=== PATIENT | female | born 1945 | race Caucasian/White ===

== ENCOUNTER → 2017-10-02 13:21 | Outpatient (CLI) | payer OTHER, SELFPAY ==
[2017-10-02 13:47] LABS: Add Manual Diff / Slide Review NO; Eosinophils Percent Auto 2.2 % (2-4); Hematocrit 38.4 % (36-46); Lymphocytes Percent Auto 25.5 % (25-40); Mean Corpuscular HGB Conc 33.9 % (30-36); Mean Corpuscular Hemoglobin 31.4 PG (26-34); Mean Corpuscular Volume 92.4 fL (80-100); Monocytes Percent Auto 9.8 % (3-14); Neutrophils Absolute Auto 2800 /uL (3000-5900); Neutrophils Percent Auto 61.5 % (50-75); Platelet Count 143 X10^3/uL (150-400); Red Blood Cell Count 4.15 X10^6/uL (4.0-5.2); White Blood Cell Count 4.5 X10^3/uL (4.5-11.0)
[2017-10-02 14:51] LABS: Alanine Aminotransferase 32 IU/L (9-52); Albumin 4.1 g/dL (3.5-5.0); Albumin Globulin Ratio 1.6 (1.0-2.8); Alkaline Phosphatase 87 U/L (38-126); Aspartate Aminotransferase 32 IU/L (14-36); BUN Creatinine Ratio 28.6 (6-22); Bilirubin Total 0.4 mg/dL (0.2-1.3); Blood Urea Nitrogen 20 mg/dL (7-17); Calcium 9.2 mg/dL (8.4-10.2); Carbon Dioxide 29 mmol/L (22-32); Chloride 103 mmol/L (98-107); Estimated Glomerular Filt Rate > 60.0 mL/min (>60); Globulin 2.6 g/dL (1.7-4.1); Glucose 105 mg/dL (80-110); HEMOLYSIS < 15 (0-50); Lactate Dehydrogenase 547 U/L (313-618); Sodium 140 mmol/L (137-145); Total Protein 6.7 g/dL (6.3-8.2)
== END ==
PROVIDERS: Family Provider Family Medicine; PCP Family Medicine; Visit Provider Nurse Practitioner Gerontology
DX: C81.90 Hodgkin lymphoma, unspecified, unspecified site (principal)
CPT/HCPCS: 36415; 80053; 83615; 85025

== ENCOUNTER → 2017-12-27 09:36 | Outpatient (CLI) | payer OTHER, SELFPAY ==
[2017-12-27 10:04] LABS: Add Manual Diff / Slide Review NO; Basophils Percent Auto 1.2 % (0-2); Eosinophils Percent Auto 2.7 % (2-4); Hematocrit 41.8 % (36-46); Hemoglobin 14.1 g/dL (12.0-16.0); Lymphocytes Percent Auto 21.9 % (25-40); Mean Corpuscular HGB Conc 33.6 % (30-36); Mean Corpuscular Hemoglobin 30.6 PG (26-34); Mean Corpuscular Volume 91.1 fL (80-100); Monocytes Percent Auto 9.8 % (3-14); Neutrophils Absolute Auto 2800 /uL (3000-5900); Neutrophils Percent Auto 64.4 % (50-75); Platelet Count 160 X10^3/uL (150-400); Red Blood Cell Count 4.59 X10^6/uL (4.0-5.2); Red Cell Distribution Width 13.5 % (11.6-14.8); White Blood Cell Count 4.4 X10^3/uL (4.5-11.0)
[2017-12-27 10:22] LABS: Alanine Aminotransferase 31 IU/L (9-52); Albumin 4.3 g/dL (3.5-5.0); Albumin Globulin Ratio 1.7 (1.0-2.8); Alkaline Phosphatase 97 U/L (38-126); Aspartate Aminotransferase 34 IU/L (14-36); BUN Creatinine Ratio 24.3 (6-22); Bilirubin Total 0.5 mg/dL (0.2-1.3); Blood Urea Nitrogen 17 mg/dL (7-17); Calcium 9.3 mg/dL (8.4-10.2); Carbon Dioxide 32 mmol/L (22-32); Chloride 104 mmol/L (98-107); Estimated Glomerular Filt Rate > 60.0 mL/min (>60); Globulin 2.6 g/dL (1.7-4.1); Glucose 84 mg/dL (80-110); HEMOLYSIS < 15 (0-50); Lactate Dehydrogenase 519 U/L (313-618); Sodium 145 mmol/L (137-145); Total Protein 6.9 g/dL (6.3-8.2)
== END ==
PROVIDERS: Family Provider Family Medicine; PCP Family Medicine; Visit Provider Nurse Practitioner Gerontology
DX: C81.90 Hodgkin lymphoma, unspecified, unspecified site (principal)
CPT/HCPCS: 36415; 80053; 83615; 85025

== ENCOUNTER 2017-12-30 12:30 | Oncology outpatient (ONC) | payer OTHER, SELFPAY ==
--- NOTE | 2017-10-04 09:44 | ONC.APRN.PN ---
Assessment and Plan (1) Hodgkins lymphoma Current visit: No Status: Acute 10/04/17 09:46 The patient is a 71 year old Female who is being seen in the clinic 10/04/2017. She carries a diagnosis of stage IV Hodgkin's lymphoma presenting with diffuse cutaneous involvement in April 2016. She has subsequently completed 6 cycles of ABVD chemotherapy obtaining a complete response (Douville score 1) after cycle 2 of therapy. Patient presents today for her routine surveillance visit today. She had recent CT 07/03/2017 which was without evidence of disease. Per NCCN guidelines 1st 2 years after diagnosis and treatment recommendation is for screening CTs approximately every 6 months. Patient would be due in 3 months. Patient would like to defer at this time, she does not want to expose herself to the radiation. She has no red flags on exam. Overall feeling very well. CBC, CMP unremarkable. LDH is within normal limits. I will have her return to clinic in 3 months time for provider visit CBC CMP LDH. At that time we will discuss imaging once again. Patient agrees with this plan of care. She is leaving later this month for a trip to [place]. 10/04/17 10:05 - Time Spent with Patient 35 mins PN -Subjective Interval history: The patient is a 71 year old Female who is being seen in the clinic 10/04/2017. She carries a diagnosis of stage IV Hodgkin's lymphoma presenting with diffuse cutaneous involvement in April 2016. She has subsequently completed 6 cycles of ABVD chemotherapy obtaining a complete response (Douville score 1) after cycle 2 of therapy. Patient presents today for her routine surveillance visit today. She had recent CT 07/03/2017 , without evidence of disease. No new complaints whatsoever on exam today. Overall feeling quite well. No fatigue. No night sweats. No weight loss, early satiety, abdominal bloating. No new musculoskeletal pain. No lumps or bumps. No skin rashes or lesions. Remains under the care of cardiology Dr. Jefferson for recurrent SVT well controlled on dilitazem. No recent illnesses. She will be traveling to [place] later this month. Past Medical History The patient's past medical history is significant for: 1) Hodgkins Lymphoma: Stage IV A with diffuse cutaneous involvement. Diagnosis: -05/15/2016. Cutaneous punch biopsy. Pathology reporting, Dense lymphoid infiltrate present in a nodular pattern involving predominantly the deep dermis and subcutaneous tissue with focal involvement of the mid dermis. The infiltrate is composed predominantly of small polymorphous lymphocytes with sub-population of large cells containing prominent nucleoli. IHC demonstrating the small cells are predominantly T cells while the larger cells represent CD30 positive and CD15 positive B cells. Both expressed nuclear B-cell markers (PAX-5 and POB-1) as well as CD20. Despite the CD20 positive which is usually negative and classic Hodgkin's lymphoma the presence of classical Golgi and membrane staining by CD30 is most consistent with classical Jerad-Katherin cells. Of note the current skin lesion does not represent follicular lymphoma. Ki-67 was reported as high. Additional IHC panel núñez negative for cyclin D1 and CD-10. Positive for CD5 in the small cell population. Clinical staging workup, Baseline: -05/30/2016: CT of the neck chest abdomen pelvis with contras. This confirms multiple, diffuse, superficial soft tissue nodularities: Anterior left ear 16 mm density, right ear 7 mm density, several cutaneous nodules reported along theupper back and posterior right shoulder. At the sternoclavicular notch on the right is a 12 mm nodule. Along the right lateral aspect of the upper breast is a density. Left scapular 9 mm density, Finally along the anterior aspect of the right side several nodules seen. Left axillary lymph node measuring less than 1 cm with slightly thickened cortex is reported. The conglomerate adenopathy seen at the retrocrural and para-aortic level is overall smaller than CT scan dated 01/17/2015. However focal area of increased is noted. -06/13/2016. PET/CT scan. Multiple cutaneous hypermetabolic lesions (Douville score 5): neck, right mandibular angle, chest wall, shoulders, arms, posterior low back, and buttocks. Bulky left para-aortic den mass (follicular lymphoma) measuring 28 x 36 x 75 mm with an SUV of 11.7. Prognosis: -IPS score equal to 2. 5 year [place] from progression at 80%. 5 year overall survival at 91%: Baseline score based on laboratory data dated 05/16/2026: Albumin 4.2, hemoglobin 13.7, female, age 66 at presentation, stage IV presentation, white blood cell count 4.1, lymphocyte percentage 22%. Treatment: -Standard ABVD chemotherapy x 6 cycles. Repeat PET/CT scan after 2 cycles. Discontinue bleomycin after 2 cycles. Phone consultation with Dr. Patrick Vick on 06/01/2016 who agrees with the above regimen. -06/12/2016-12/04/2016. ABVD chemotherapy ?6 cycles. -Treatment modifications: Vincristine and dacarbazine dose reduced by 25% on cycle 2 day 15 secondary to persistent grade 4 neutropenia. Cardiac monitoring: -06/04/2016. MUGA scan: EF 75.2%. (Baseline) -08/31/2016. MUGA scan. EF 67.4%. (3 cycles AVD) 10/19/2016. MUGA scan. EF 69.1%. (4 cycles of AVD) 11/14/2016. MUGA scan. EF 73.5% (5 cycles of AVD). 12/19/2016. MUGA scan. EF 72.5%. (6 cycles of AVD) Pulmonary monitoring: -06/14/2016. PFT (Baseline, compared to PFT 2008) reporting an FEV1 measured at 1.44 L (63% predictive). FEV1/FVC ratio 69 (90% predictive). No appreciable change in patient's measurements after the dilator use. Lung volumes showing SVC of 1.94 L (67% predictive). DLCO2 64% predicted. No significant change from 2009 PFT. -07/04/2016. PFT (reflection of 1 cycle of ABVD chemotherapy): FEV1 1.52 L (66% predictive), FEV1/FVC ratio 67% (88% predictive), DLCO2 cor at 74% predicted. Clinical staging workup, during treatment: -08/10/2016. PET/CT scan (a reflection of 2 cycles of ABVD chemotherapy). Multiple cutaneous hypermetabolic lesions resolved (Douville score 1). Bulky left aortic mass decreased in size measuring 20 x 26 x 40 mm SUV equal to 2.5 (Douville scale 4). Surveillence: NCCN guidelines: -Clinical follow-up every 3-6 months for the first 2 years then every 6-12 months until year 3 then annual. Annual influenza vaccine. Labs CBC ESR CMP. TSH. CT of the chest abdomen pelvis and neck at months 6, 12 and 24 at the completion of therapy. No indication for PET/CT scan she had a complete response after 2 cycles. -02/25/2017. CTA of the chest. Persistant but small mediastinal lymph nodes compared to July 2016 PET scan. No paranchymal lung disease. 2) Low-grade follicular lymphoma originally diagnosed in 12/27/2008 from biopsy of a left retroperitoneal mass. Pathology consistent with a low-grade follicular lymphoma (grade 1-2 out of 3). Positive for BCL-2 gene translocation by t(14;18) by FISH. Negative for BCL-6 translocation by FISH. FLIPI score of 2. Asymptomatic at time of diagnosis. Second opinion with Dr. Patrick Vick on 02/06/2013 confirming diagnosis low-grade and recommendation for observation only. 3) SVT not otherwise specified intermittent. Under the care of Dr. Jefferson cardiology. No further diagnostic testing was recommended. 4) Obstructive lung disease (moderate) and Restrictive lung disease (moderate). Identified on PFT dated 06/14/16 reporting FEV1 63%. FEV1/FEVC ration of 90%, DLCO2=64%. Baseline CT Chest dated 05/30/2016 without evidence of radiologic parenchymal lung disease. No significant change in measurements compared to 2008 Home Medications and Allergies Home Medications Medication Instructions Recorded Confirmed Type B.ANI/L.ACI/L.MIS/L.PLAN/L.SILAS 1 cap PO Q DAY #0 07/04/12 History (Probiotic Formula Capsule) CA PANTOTHENATE/FOLIC ACID/VIT 1 tab PO QDAY #0 07/04/12 History (MULTIVITAMIN) Coenzyme Q10 (#COQ10) 250 mg PO #0 07/04/12 History vitamin B complex [B 1 tab PO QDAY #0 06/20/16 History Complex-Vitamin B12] [HAIR/SKIN NAILS] Q DAY #0 10/23/16 History diltiazem HCl [Cartia XT] 180 mg PO QDAY #0 03/28/17 History magnesium oxide 250 mg PO #0 05/30/17 History Allergies Allergy/AdvReac Type Severity Reaction Status Date / Time NSAIDS (Non-Steroidal Allergy Intermediate HIVES Unverified 07/03/17 13:03 Anti-Inflamma [NSAIDS (NON-STEROIDAL ANTI-INFLAMMA] amoxicillin [AMOXICILLIN] Allergy Mild rash Unverified 07/03/17 13:03 Exam Narrative: well appearing - Constitutional positive thin - Routine HEENT Exam Head: Present: normocephalic, atraumatic Eye: Present: conjunctivae pink. Absent: conjunctival icterus, scleral injection ENT: Present: mucous membranes moist, oropharynx clear - Routine Neck Exam Present: supple. Absent: lymphadenopathy - Routine Chest/Breast/Axilla Exam Chest wall exam standard: Absent: tenderness, mass Axillae: Absent: lymphadenopathy, mass, tenderness - Routine Respiratory Exam Present: Clear to auscultation bilaterally - Routine Cardiovascular Exam Present: RRR, S1, S2. Absent: tachycardia, JVD - Routine Abdominal Exam Present: soft, normoactive bowel sounds. Absent: tenderness, distended, organomegaly - Routine Extremities Exam Absent: edema, calf tenderness - Routine Skin Exam Present: intact, normal turgor. Absent: petechiae - Routine Neurological Exam Present: alert, oriented X3 - Routine Psychiatric Exam Present: normal affect
[2017-10-04 09:46] VITALS: BP 115/71; PULSE 67; RESP 18; O2SAT 99
--- NOTE | 2017-10-04 09:47 | P.PNONC_ITS ---
Assessment and Plan (1) Hodgkins lymphoma Current visit: No Status: Acute 10/04/17 09:46 The patient is a 71 year old Female who is being seen in the clinic 10/04/2017. She carries a diagnosis of stage IV Hodgkin's lymphoma presenting with diffuse cutaneous involvement in April 2016. She has subsequently completed 6 cycles of ABVD chemotherapy obtaining a complete response (Douville score 1) after cycle 2 of therapy. Patient presents today for her routine surveillance visit today. She had recent CT 07/03/2017 which was without evidence of disease. Per NCCN guidelines 1st 2 years after diagnosis and treatment recommendation is for screening CTs approximately every 6 months. Patient would be due in 3 months. Patient would like to defer at this time, she does not want to expose herself to the radiation. She has no red flags on exam. Overall feeling very well. CBC, CMP unremarkable. LDH is within normal limits. I will have her return to clinic in 3 months time for provider visit CBC CMP LDH. At that time we will discuss imaging once again. Patient agrees with this plan of care. She is leaving later this month for a trip to [place]. 10/04/17 10:05 - Time Spent with Patient 35 mins PN -Subjective Interval history: The patient is a 71 year old Female who is being seen in the clinic 10/04/2017. She carries a diagnosis of stage IV Hodgkin's lymphoma presenting with diffuse cutaneous involvement in April 2016. She has subsequently completed 6 cycles of ABVD chemotherapy obtaining a complete response (Douville score 1) after cycle 2 of therapy. Patient presents today for her routine surveillance visit today. She had recent CT 07/03/2017 , without evidence of disease. No new complaints whatsoever on exam today. Overall feeling quite well. No fatigue. No night sweats. No weight loss, early satiety, abdominal bloating. No new musculoskeletal pain. No lumps or bumps. No skin rashes or lesions. Remains under the care of cardiology Dr. Jefferson for recurrent SVT well controlled on dilitazem. No recent illnesses. She will be traveling to [place] later this month. Past Medical History The patient's past medical history is significant for: 1) Hodgkins Lymphoma: Stage IV A with diffuse cutaneous involvement. Diagnosis: -05/15/2016. Cutaneous punch biopsy. Pathology reporting, Dense lymphoid infiltrate present in a nodular pattern involving predominantly the deep dermis and subcutaneous tissue with focal involvement of the mid dermis. The infiltrate is composed predominantly of small polymorphous lymphocytes with sub- population of large cells containing prominent nucleoli. IHC demonstrating the small cells are predominantly T cells while the larger cells represent CD30 positive and CD15 positive B cells. Both expressed nuclear B-cell markers (PAX- 5 and POB-1) as well as CD20. Despite the CD20 positive which is usually negative and classic Hodgkin's lymphoma the presence of classical Golgi and membrane staining by CD30 is most consistent with classical Jerad-Katherin cells. Of note the current skin lesion does not represent follicular lymphoma. Ki-67 was reported as high. Additional IHC panel núñez negative for cyclin D1 and CD-10. Positive for CD5 in the small cell population. Clinical staging workup, Baseline: -05/30/2016: CT of the neck chest abdomen pelvis with contras. This confirms multiple, diffuse, superficial soft tissue nodularities: Anterior left ear 16 mm density, right ear 7 mm density, several cutaneous nodules reported along theupper back and posterior right shoulder. At the sternoclavicular notch on the right is a 12 mm nodule. Along the right lateral aspect of the upper breast is a density. Left scapular 9 mm density, Finally along the anterior aspect of the right side several nodules seen. Left axillary lymph node measuring less than 1 cm with slightly thickened cortex is reported. The conglomerate adenopathy seen at the retrocrural and para-aortic level is overall smaller than CT scan dated 01/17/2015. However focal area of increased is noted. -06/13/2016. PET/CT scan. Multiple cutaneous hypermetabolic lesions (Douville score 5): neck, right mandibular angle, chest wall, shoulders, arms, posterior low back, and buttocks. Bulky left para-aortic den mass (follicular lymphoma ) measuring 28 x 36 x 75 mm with an SUV of 11.7. Prognosis: -IPS score equal to 2. 5 year [place] from progression at 80%. 5 year overall survival at 91%: Baseline score based on laboratory data dated 05/16/2026: Albumin 4.2, hemoglobin 13.7, female, age 66 at presentation, stage IV presentation, white blood cell count 4.1, lymphocyte percentage 22%. Treatment: -Standard ABVD chemotherapy x 6 cycles. Repeat PET/CT scan after 2 cycles. Discontinue bleomycin after 2 cycles. Phone consultation with Dr. Patrick Vick on 06/01/2016 who agrees with the above regimen. -06/12/2016-12/04/2016. ABVD chemotherapy ?6 cycles. -Treatment modifications: Vincristine and dacarbazine dose reduced by 25% on cycle 2 day 15 secondary to persistent grade 4 neutropenia. Cardiac monitoring: -06/04/2016. MUGA scan: EF 75.2%. (Baseline) -08/31/2016. MUGA scan. EF 67.4%. (3 cycles AVD) 10/19/2016. MUGA scan. EF 69.1%. (4 cycles of AVD) 11/14/2016. MUGA scan. EF 73.5% (5 cycles of AVD). 12/19/2016. MUGA scan. EF 72.5%. (6 cycles of AVD) Pulmonary monitoring: -06/14/2016. PFT (Baseline, compared to PFT 2008) reporting an FEV1 measured at 1.44 L (63% predictive). FEV1/FVC ratio 69 (90% predictive). No appreciable change in patient's measurements after the dilator use. Lung volumes showing SVC of 1.94 L (67% predictive). DLCO2 64% predicted. No significant change from 2009 PFT. -07/04/2016. PFT (reflection of 1 cycle of ABVD chemotherapy): FEV1 1.52 L (66 % predictive), FEV1/FVC ratio 67% (88% predictive), DLCO2 cor at 74% predicted. Clinical staging workup, during treatment: -08/10/2016. PET/CT scan (a reflection of 2 cycles of ABVD chemotherapy). Multiple cutaneous hypermetabolic lesions resolved (Douville score 1). Bulky left aortic mass decreased in size measuring 20 x 26 x 40 mm SUV equal to 2.5 ( Douville scale 4). Surveillence: NCCN guidelines: -Clinical follow-up every 3-6 months for the first 2 years then every 6-12 months until year 3 then annual. Annual influenza vaccine. Labs CBC ESR CMP. TSH. CT of the chest abdomen pelvis and neck at months 6, 12 and 24 at the completion of therapy. No indication for PET/CT scan she had a complete response after 2 cycles. -02/25/2017. CTA of the chest. Persistant but small mediastinal lymph nodes compared to July 2016 PET scan. No paranchymal lung disease. 2) Low-grade follicular lymphoma originally diagnosed in 12/27/2008 from biopsy of a left retroperitoneal mass. Pathology consistent with a low-grade follicular lymphoma (grade 1-2 out of 3). Positive for BCL-2 gene translocation by t(14;18 ) by FISH. Negative for BCL-6 translocation by FISH. FLIPI score of 2. Asymptomatic at time of diagnosis. Second opinion with Dr. Patrick Vick on 02/06/2013 confirming diagnosis low-grade and recommendation for observation only. 3) SVT not otherwise specified intermittent. Under the care of Dr. Jefferson cardiology. No further diagnostic testing was recommended. 4) Obstructive lung disease (moderate) and Restrictive lung disease (moderate). Identified on PFT dated 06/14/16 reporting FEV1 63%. FEV1/FEVC ration of 90%, DLCO2=64%. Baseline CT Chest dated 05/30/2016 without evidence of radiologic parenchymal lung disease. No significant change in measurements compared to 2008 Home Medications and Allergies Home Medications Medication Instructions Recorded Confirmed Type B.ANI/L.ACI/L.MIS/L.PLAN/L.SILAS 1 cap PO Q DAY #0 07/04/12 History (Probiotic Formula Capsule) CA PANTOTHENATE/FOLIC ACID/VIT 1 tab PO QDAY #0 07/04/12 History (MULTIVITAMIN) Coenzyme Q10 (#COQ10) 250 mg PO #0 07/04/12 History vitamin B complex [B 1 tab PO QDAY #0 06/20/16 History Complex-Vitamin B12] [HAIR/SKIN NAILS] Q DAY #0 10/23/16 History diltiazem HCl [Cartia XT] 180 mg PO QDAY #0 03/28/17 History magnesium oxide 250 mg PO #0 05/30/17 History Allergies Allergy/AdvReac Type Severity Reaction Status Date / Time NSAIDS (Non-Steroidal Allergy Intermediate HIVES Unverified 07/03/17 13:03 Anti-Inflamma [NSAIDS (NON-STEROIDAL ANTI-INFLAMMA] amoxicillin [AMOXICILLIN] Allergy Mild rash Unverified 07/03/17 13:03 Exam Narrative: well appearing - Constitutional positive thin - Routine HEENT Exam Head: Present: normocephalic, atraumatic Eye: Present: conjunctivae pink. Absent: conjunctival icterus, scleral injection ENT: Present: mucous membranes moist, oropharynx clear - Routine Neck Exam Present: supple. Absent: lymphadenopathy - Routine Chest/Breast/Axilla Exam Chest wall exam standard: Absent: tenderness, mass Axillae: Absent: lymphadenopathy, mass, tenderness - Routine Respiratory Exam Present: Clear to auscultation bilaterally - Routine Cardiovascular Exam Present: RRR, S1, S2. Absent: tachycardia, JVD - Routine Abdominal Exam Present: soft, normoactive bowel sounds. Absent: tenderness, distended, organomegaly - Routine Extremities Exam Absent: edema, calf tenderness - Routine Skin Exam Present: intact, normal turgor. Absent: petechiae - Routine Neurological Exam Present: alert, oriented X3 - Routine Psychiatric Exam Present: normal affect
[2017-12-30 12:46] VITALS: BP 124/58; PULSE 66; RESP 18; TEMP 36.6; O2SAT 98
--- NOTE | 2017-12-30 13:24 | P.PNONC_ITS ---
PN -Subjective Interval history: The patient is a 72 year old Female who is being seen in the clinic 12/30/2017. She carries a diagnosis of stage IV Hodgkin's lymphoma presenting with diffuse cutaneous involvement in April 2016. She has subsequently completed 6 cycles of ABVD chemotherapy obtaining a complete response (Douville score 1) after cycle 2 of therapy. Patient presents today for her routine surveillance visit today. She had recent CT 07/03/2017 , without evidence of disease. No new complaints whatsoever on exam today. Overall feeling quite well. No fatigue. No night sweats. No weight loss, early satiety, abdominal bloating. No new musculoskeletal pain. No lumps or bumps. No skin rashes or lesions. Remains under the care of cardiology Dr. Jefferson for recurrent SVT well controlled on dilitazem. No recent illnesses. NCCN guidelines were reviewed with the patient previous visit including recommendation for CT scan at 6, 12, [address] previous visit expressing concern about radiation exposure also indicating she is feeling well and saw no need for imaging. This was discussed again in detail today, NCCN guidelines once again reviewed. Past Medical History The patient's past medical history is significant for: 1) Hodgkins Lymphoma: Stage IV A with diffuse cutaneous involvement. Diagnosis: -05/15/2016. Cutaneous punch biopsy. Pathology reporting, Dense lymphoid infiltrate present in a nodular pattern involving predominantly the deep dermis and subcutaneous tissue with focal involvement of the mid dermis. The infiltrate is composed predominantly of small polymorphous lymphocytes with sub- population of large cells containing prominent nucleoli. IHC demonstrating the small cells are predominantly T cells while the larger cells represent CD30 positive and CD15 positive B cells. Both expressed nuclear B-cell markers (PAX- 5 and POB-1) as well as CD20. Despite the CD20 positive which is usually negative and classic Hodgkin's lymphoma the presence of classical Golgi and membrane staining by CD30 is most consistent with classical Jerad-Katherin cells. Of note the current skin lesion does not represent follicular lymphoma. Ki-67 was reported as high. Additional IHC panel núñez negative for cyclin D1 and CD-10. Positive for CD5 in the small cell population. Clinical staging workup, Baseline: -05/30/2016: CT of the neck chest abdomen pelvis with contras. This confirms multiple, diffuse, superficial soft tissue nodularities: Anterior left ear 16 mm density, right ear 7 mm density, several cutaneous nodules reported along theupper back and posterior right shoulder. At the sternoclavicular notch on the right is a 12 mm nodule. Along the right lateral aspect of the upper breast is a density. Left scapular 9 mm density, Finally along the anterior aspect of the right side several nodules seen. Left axillary lymph node measuring less than 1 cm with slightly thickened cortex is reported. The conglomerate adenopathy seen at the retrocrural and para-aortic level is overall smaller than CT scan dated 01/17/2015. However focal area of increased is noted. -06/13/2016. PET/CT scan. Multiple cutaneous hypermetabolic lesions (Douville score 5): neck, right mandibular angle, chest wall, shoulders, arms, posterior low back, and buttocks. Bulky left para-aortic den mass (follicular lymphoma ) measuring 28 x 36 x 75 mm with an SUV of 11.7. Prognosis: -IPS score equal to 2. 5 year [place] from progression at 80%. 5 year overall survival at 91%: Baseline score based on laboratory data dated 05/16/2026: Albumin 4.2, hemoglobin 13.7, female, age 66 at presentation, stage IV presentation, white blood cell count 4.1, lymphocyte percentage 22%. Treatment: -Standard ABVD chemotherapy x 6 cycles. Repeat PET/CT scan after 2 cycles. Discontinue bleomycin after 2 cycles. Phone consultation with Dr. Patrick Vick on 06/01/2016 who agrees with the above regimen. -06/12/2016-12/04/2016. ABVD chemotherapy ?6 cycles. -Treatment modifications: Vincristine and dacarbazine dose reduced by 25% on cycle 2 day 15 secondary to persistent grade 4 neutropenia. Cardiac monitoring: -06/04/2016. MUGA scan: EF 75.2%. (Baseline) -08/31/2016. MUGA scan. EF 67.4%. (3 cycles AVD) 10/19/2016. MUGA scan. EF 69.1%. (4 cycles of AVD) 11/14/2016. MUGA scan. EF 73.5% (5 cycles of AVD). 12/19/2016. MUGA scan. EF 72.5%. (6 cycles of AVD) Pulmonary monitoring: -06/14/2016. PFT (Baseline, compared to PFT 2008) reporting an FEV1 measured at 1.44 L (63% predictive). FEV1/FVC ratio 69 (90% predictive). No appreciable change in patient's measurements after the dilator use. Lung volumes showing SVC of 1.94 L (67% predictive). DLCO2 64% predicted. No significant change from 2009 PFT. -07/04/2016. PFT (reflection of 1 cycle of ABVD chemotherapy): FEV1 1.52 L (66 % predictive), FEV1/FVC ratio 67% (88% predictive), DLCO2 cor at 74% predicted. Clinical staging workup, during treatment: -08/10/2016. PET/CT scan (a reflection of 2 cycles of ABVD chemotherapy). Multiple cutaneous hypermetabolic lesions resolved (Douville score 1). Bulky left aortic mass decreased in size measuring 20 x 26 x 40 mm SUV equal to 2.5 ( Douville scale 4). Surveillence: NCCN guidelines: -Clinical follow-up every 3-6 months for the first 2 years then every 6-12 months until year 3 then annual. Annual influenza vaccine. Labs CBC ESR CMP. TSH. CT of the chest abdomen pelvis and neck at months 6, 12 and 24 at the completion of therapy. No indication for PET/CT scan she had a complete response after 2 cycles. -02/25/2017. CTA of the chest. Persistant but small mediastinal lymph nodes compared to July 2016 PET scan. No paranchymal lung disease. 2) Low-grade follicular lymphoma originally diagnosed in 12/27/2008 from biopsy of a left retroperitoneal mass. Pathology consistent with a low-grade follicular lymphoma (grade 1-2 out of 3). Positive for BCL-2 gene translocation by t(14;18 ) by FISH. Negative for BCL-6 translocation by FISH. FLIPI score of 2. Asymptomatic at time of diagnosis. Second opinion with Dr. Patrick Vick on 02/06/2013 confirming diagnosis low-grade and recommendation for observation only. 3) SVT not otherwise specified intermittent. Under the care of Dr. Jefferson cardiology. No further diagnostic testing was recommended. 4) Obstructive lung disease (moderate) and Restrictive lung disease (moderate). Identified on PFT dated 06/14/16 reporting FEV1 63%. FEV1/FEVC ration of 90%, DLCO2=64%. Baseline CT Chest dated 05/30/2016 without evidence of radiologic parenchymal lung disease. No significant change in measurements compared to 2009 Home Medications and Allergies Home Medications Medication Instructions Recorded Confirmed Type B.ANI/L.ACI/L.MIS/L.PLAN/L.SILAS 1 cap PO Q DAY #0 07/04/12 History (Probiotic Formula Capsule) CA PANTOTHENATE/FOLIC ACID/VIT 1 tab PO QDAY #0 07/04/12 History (MULTIVITAMIN) Coenzyme Q10 (#COQ10) 250 mg PO #0 07/04/12 History vitamin B complex [B 1 tab PO QDAY #0 06/20/16 History Complex-Vitamin B12] [HAIR/SKIN NAILS] Q DAY #0 10/23/16 History diltiazem HCl [Cartia XT] 180 mg PO QDAY #0 03/28/17 History magnesium oxide 250 mg PO #0 05/30/17 History Allergies Allergy/AdvReac Type Severity Reaction Status Date / Time NSAIDS (Non-Steroidal Allergy Intermediate HIVES Unverified 07/03/17 13:03 Anti-Inflamma [NSAIDS (NON-STEROIDAL ANTI-INFLAMMA] amoxicillin [AMOXICILLIN] Allergy Mild rash Unverified 07/03/17 13:03 Exam Vital signs: Last Vital Signs Temp 98 F 12/30/17 12:46 Pulse 66 12/30/17 12:46 Resp 18 12/30/17 12:46 BP 124/58 L 12/30/17 12:46 Pulse Ox 98 12/30/17 12:46 Narrative: appears younger than chronological age of 72. - Constitutional positive no acute distress, positive thin - Routine HEENT Exam Eye: Present: conjunctivae pink. Absent: conjunctival icterus, scleral injection ENT: Present: mucous membranes moist, oropharynx clear - Routine Neck Exam Present: supple. Absent: lymphadenopathy - Routine Chest/Breast/Axilla Exam Axillae: Absent: lymphadenopathy, mass, tenderness - Routine Respiratory Exam Present: Clear to auscultation bilaterally. Absent: rales, rhonchi, wheezes - Routine Cardiovascular Exam Present: RRR, S1, S2. Absent: murmur, gallop, rubs, JVD - Routine Abdominal Exam Present: soft, normoactive bowel sounds. Absent: tenderness, distended, organomegaly, mass Palpation/Percussion: Absent: fluid waves - Routine Extremities Exam Absent: edema, calf tenderness - Routine Skin Exam Present: intact, normal turgor. Absent: petechiae, rash - Routine Neurological Exam Present: alert, oriented X3 - Routine Psychiatric Exam Present: normal affect Assessment and Plan (1) Hodgkins lymphoma Current visit: No Status: Acute The patient is a 72 year old Female who is being seen in the clinic 12/30/2017. She carries a diagnosis of stage IV Hodgkin's lymphoma presenting with diffuse cutaneous involvement in April 2016. She has subsequently completed 6 cycles of ABVD chemotherapy obtaining a complete response (Douville score 1) after cycle 2 of therapy. Patient presents today for routine surveillance. Reassuringly, she has no clinical signs or symptoms of disease recurrence. Most recent CT scan was July 03, 2017. No further imaging per patient request. She does understand NCCN guidelines recommend post treatment surveillance imaging at 6, 12, 24 months. Patient again expresses concern about exposure to radiation. Additionally, she states she is feeling quite well and does not feel as though she has any active disease. CBC, CMP unremarkable. LDH within normal limits. Per patient request we will hold off on advanced imaging at this time. Return to clinic in 3 months time I would like for her to establish with 1 of our new oncologist, at which time we will once again check CBC, CMP, LDH. Patient verbalizes understanding and agrees with the above plan of care. - Time Spent with Patient 25 mins 5 mins dictation
== END 2017-12-31 12:00 ==
PROVIDERS: Family Provider Family Medicine; PCP Family Medicine; Visit Provider Nurse Practitioner Gerontology
DX: Z08 Encounter for follow-up examination after completed treatment for malignant neoplasm (principal); Z85.71 Personal history of Hodgkin lymphoma; I47.1 Supraventricular tachycardia
CPT/HCPCS: 99214

== ENCOUNTER 2018-04-25 08:55 | Day surgery (SDC) | payer OTHER, SELFPAY ==
[2018-04-25] VITALS (17 sets, daily range): BP systolic 93–152; BP diastolic 54–75; PULSE 78–107; RESP 10–22; TEMP 36.5–38.3; O2SAT 95–99
--- NOTE | 2018-04-25 | PATH_ITS ---
[facility] Accession Number: [id number] . 01 Material submitted: . L PARAORTIC/PERIRENAL LN MASS . 01 Clinical history: . HX FOLLICULAR LYMPHOMA HX HYDRYLLIN LYMPHOMA . 01 Diagnosis: LYMPH NODE, RETROPERITONEAL, LEFT PERIAORTIC/PERIRENAL, CT GUIDED BIOPSY: . ---- CLASSIC HODGKIN LYMPHOMA ------ See comment [facility]/05/02/2018 . 01 Comment: Comment: Morphologic and immunohistochemical features are compatible with classic Hodgkin lymphoma. Features are suggestive of but not definitively diagnostic for nodular sclerosis subtype of classic Hodgkin lymphoma; the paucity of tissue afforded by a core needle biopsy precludes complete architectural assessment. There is no evidence of an atypical CD10 positive population by immunohistochemical or by flow cytometric analysis (follicular lymphoma was a clinical consideration); the concomitant flow cytometric analysis was without evidence of an atypical B-cell, T-cell or NK-cell population (see separate flow cytometry report: [id number]). Clinical correlation is requested. . . Communications: Spoke with Bailee [facility] in telephone conversation (04/29/18 at 15:40hs); shared differential diagnosis and expected time to work up case. Gilberto. . 01 Electronically signed: . Pooja Sidhu MD, Pathologist NPI- [id number] . 01 Gross description: . Received in formalin are two core biopsies of cruz tissue (length-2.3 cm and 1.6 cm, diameter-0.1 cm). Entirely submitted in cassette A1. ([id number]) /MRV . 01 Microscopic: . H/E levels demonstrate fragments of needle core biopsy material. Some comprise benign fibroadipose and connective tissue with some admixed inflammatory infiltrate. One fragment demonstrates two foci of dense infiltrate of lymphoid elements by an area which appears fibrotic. The area of fibrosis does demonstrate some admixed, predominantly chronic, inflammatory infiltrate with admixed eosinophils. The areas of lymphoid infiltration comprise predominantly small mature appearing lymphoid cells. There are admixed plasma cells, neutrophils and rare eosinophils. Scattered throughout are extremely large cells with large irregular nuclei, some with visible nucleoli. Binucleate forms are not definitively identified. There is no evidence of tio abscess, granulomas or sheets/clusters of atypical large cells. . To further characterize the process, immunohistochemical stains were indicated. The controls reacted appropriately. Findings refer to the staining characteristics of the large atypical cells. . Findings: CD20: Positive CD15: Positive CD30: Positive CD10: Negative CD21: Negative CD3: Negative CD43: Negative . Interpretation: In conjunction with morphologic features, immunophenotypic findings are compatible with classic Hodgkin Lymphoma Technical Note: The immunohistochemistry stains reported were developed and their performance characteristics determined by [employer] They have not been cleared or approved by the U.S. Food and Drug Administration, although such approval is not required for analyte-specific reagents of this type. . 01 Pathologist provided ICD-10: C81.90 . 01 CPT . 291126, P51776, L10788 Performed at: 01 [employer] [facility] [address] [place] [address], [place], [place] [id number] MD Aston Mcnamara MD Phone: [phone]
--- NOTE | 2018-04-25 | DI.CT.S_ITS ---
PROCEDURE: CT BIOSY LYMPH NODE Sedation analgesia for 30 minutes. INDICATIONS: History of remote follicular cell lymphoma and more recent Hodgkin's lymphoma. Now with significant interval enlargement of abdominal adenopathy, particularly in the left periaortic/perirenal region. TECHNIQUE: The indications, alternatives, benefits, risks, and possible complications of the procedure were communicated to the patient. Informed written consent from the patient was obtained and placed in the chart. Continuous EKG and hemodynamic monitoring was started by trained personnel. The patient was brought to the CT suite and home health billing specialist spiral CT imaging was performed with localization grid. The appropriate site for percutaneous access to the biopsy target was marked, was prepped and draped sterilely, and was infused with local anaesthesia. Under CT guidance, a core biopsy trocar and needle set was advanced to the biopsy target, and specimen(s) were obtained. The trocar and needle were then removed, and the patient was sent for post-procedure monitoring. COMPARISON: [facility], CT, CT CHEST ABD PEL W CON, 03/31/2018, 11:03. FINDINGS: Biopsy site: Left periaortic/perirenal retroperitoneal lymph node Needle: 18 gauge biopsy needle with introducer trocar. Number of passes: 3 Medications: 1% lidocaine for local anaesthesia. IV Fentanyl and Versed for conscious sedation for 30 minutes (see nursing record). Complications: None. IMPRESSION: Successful CT-guided biopsy of the largest left periaortic,/perirenal lymph node. Comment: A sample was placed in RPMI solution for flow studies. Additional samples were placed in formalin. Dictated by: Tamir Fountain M.D. on 04/25/2018 at 11:17 Approved by: Tamir Fountain M.D. on 04/25/2018 at 11:21
[2018-04-25] MEDS: fentaNYL 100 MCG/2 ML INJ 50 MCG IV (10:21)
[2018-04-25] MEDS: MIDAZOLAM 2 MG/2 ML VIAL IV (10:21)
--- NOTE | 2018-04-25 11:03 | PC.NURSE ---
pt tolerated procedure, sedation was minimal. pt tranferred to PACU via wheelchair alert and awake, Report given to Marisol JACKSON.
[2018-04-25 13:28] LABS: Hematocrit 34.7 % (36-46)
[2018-04-25] MEDS: ACETAMINOPHEN 325 MG TABLET 650 MG PO (14:04)
--- NOTE | 2018-04-25 14:39 | SUR.PHASEII ---
1107 patient arrived post procedure from . Awake, alert and oriented x 3. Vital signs stable. No complaints of pain. Dressing on low back clean dry and intact. IV site intact. Labs drawn per orders. Post procedure vital signs stable with exception of temperature elevation at 1345. Tolerated PO without nausea. Dr. Fountain notified regarding elevated temperature and lab values. Medicated with tylenol. Dressing site clean dry and intact. No complaints of pain at 1404. Dressed for discharge to home. Wheelchair to car to home with friend.
== END 2018-04-25 14:24 ==
LOC: OR 08:56
PROVIDERS: Radiology Diagnostic Radiology; Family Provider Student in an Organized Health Care Education/Training Program; PCP Student in an Organized Health Care Education/Training Program; Visit Provider Internal Medicine Hematology & Oncology
PROC: BR2CZZZ Computerized Tomography (CT Scan) of Pelvis (ICD-10-PCS; CPT 77012; principal; 2018-04-25 10:00)
DX: C81.93 Hodgkin lymphoma, unspecified, intra-abdominal lymph nodes (principal); Z85.72 Personal history of non-Hodgkin lymphomas
CPT/HCPCS: 36415; 38505; 77012; 85014; J2250; J3010

== ENCOUNTER 2018-05-15 14:13 | Emergency (ER) | payer OTHER, SELFPAY ==
[2018-05-15] VITALS (8 sets, daily range): BP systolic 100–151; BP diastolic 58–107; PULSE 93–205; RESP 16–24; TEMP 38.1–38.9; O2SAT 96–98
--- NOTE | 2018-05-15 14:25 | ED_ITS ---
HPI - General Adult General Chief complaint: Arrhythmia/Palpitations Stated complaint: SVT going on right now Time Seen by Provider: 05/15/18 14:24 Source: patient Mode of arrival: ambulatory Limitations: no limitations History of Present Illness HPI narrative: patient is a 72-year-old female with a known history of SVT. She states that her last occurrence of this was at the end of last year. She states that she has always converted with adenosine. She reports that earlier today she started feeling like her heart was beating fast. She has no other associated symptoms. She also has a history of lymphoma. She has not started chemotherapy. She is under the care of Oncology. She has had night sweats for the past several weeks. No other symptoms. Related Data Home Medications Medication Instructions Recorded Confirmed Probiotic 1 cap PO DAILY #0 07/04/12 05/15/18 coQ10 (ubiquinol) 250 mg PO DAILY #0 07/04/12 05/15/18 multivitamin 1 tab PO DAILY #0 07/04/12 05/15/18 [place]-3 Fish Oil 1 cap PO DAILY 05/15/18 05/15/18 Protandim 1 dose PO DAILY 05/15/18 05/15/18 Vitamin D Liquid 1 dose TOPICAL DAILY 05/15/18 05/15/18 diltiazem HCl [Cartia XT] 180 mg PO QPM 05/15/18 05/15/18 Previous Rx's Medication Instructions Recorded levofloxacin [Levaquin] 750 mg PO DAILY 6 Days #6 tab 05/15/18 Allergies Allergy/AdvReac Type Severity Reaction Status Date / Time NSAIDS (Non-Steroidal Allergy Intermediate HIVES Verified 04/25/18 09:15 Anti-Inflamma [NSAIDS (NON-STEROIDAL ANTI-INFLAMMA] amoxicillin [AMOXICILLIN] Allergy Mild rash Verified 04/25/18 09:15 Review of Systems Constitutional Denies fatigue, Reports fever(s), Denies headache(s), Denies lethargy and Denies malaise Eyes Denies itchy eyes ENT Ears, Nose, Mouth, and Throat: Denies dizziness and Denies headache(s) Cardiovascular Denies chest pain, Reports rapid heart rate, Reports palpitations and Denies dyspnea Respiratory Denies cough and Denies dyspnea Gastrointestinal Gastrointestinal: Denies abdominal pain, Denies nausea and Denies vomiting Genitourinary Denies dysuria Musculoskeletal Denies back pain, Denies myalgias and Denies arthralgias Integumentary/Breasts Denies rash Neurologic Denies behavioral changes, Denies confusion, Denies dizziness and Denies headache(s) Psychiatric Denies behavioral changes and Denies confusion Endocrine Denies fatigue and Reports palpitations Hematologic/Lymphatic Denies easy bleeding and Denies easy bruising Allergic/Immunologic Denies urticaria and Denies itchy eyes PFSH Medical History SVT (supraventricular tachycardia) (Chronic) Follicular non-Hodgkin's lymphoma (Resolved) Social History household members: family Smoking Status: Former smoker alcohol intake: never substance use type: does not use Social History household members: family Smoking Status: Former smoker alcohol intake: never substance use type: does not use Exam Initial Vital Signs Initial Vital Signs: Vital Signs Pulse Rate 205 H 05/15/18 14:48 Respiratory Rate 24 05/15/18 14:48 Blood Pressure 151/75 H 05/15/18 14:48 Pulse Oximetry 96 05/15/18 14:48 Const General: cooperative, comfortable, well developed, well groomed and No acute distress Orientation: alert, awake and oriented x3 HENMT Head: normal to inspection and normocephalic Resp Effort & Inspection: normal respiratory effort Auscultation: clear to auscultation bilaterally Cardio Rate: tachycardic Rhythm: regular rhythm Pulses: radial pulses present GI Inspection: non-distended Palpation: soft, No firm and No tender Back/Spine/Pelvis Back: No CVA tenderness Skin Lesions: no lesions Rashes: no rashes Neuro General: alert, awake and oriented x3 Cognition: normal cognition Speech: speech normal Gait: normal gait Motor: muscle tone normal throughout Sensory Exam: no sensory deficits noted Extrem General: normal to inspection and capillary refill normal Psych Appearance: grossly normal and well kempt Affect: normal affect Course Orders Ordered: ED Orders 05/15/18 14:24 EKG-12 Lead Stat 05/15/18 14:33 Basic Metabolic Panel Stat Complete Blood Count AUTO DIFF Stat 05/15/18 15:03 XR chest 1V Stat Procalcitonin Stat 05/15/18 15:24 Lactate (Lactic Acid) Stat 05/15/18 15:31 Blood Culture Stat 05/15/18 16:02 CT abdomen pelvis w con Stat 05/15/18 17:15 Urine Microscopic Stat Discontinued Medications Adenosine (Adenocard) 6 mg IV NOW ONE Stop: 02/21/19 14:56 Last Admin: 05/15/18 15:00 Dose: 6 mg Adenosine (Adenocard) 12 mg IV NOW ONE Stop: 05/15/18 14:56 Last Admin: 05/15/18 15:01 Dose: 12 mg Sodium Chloride (Normal Saline 0.9%) 1,000 mls @ 1,000 mls/hr IV BOLUS ONE Stop: 05/15/18 16:02 Last Admin: 05/15/18 15:05 Dose: 1,000 mls/hr Levofloxacin (Levaquin) 750 mg PO NOW ONE Stop: 05/15/18 17:58 Vital Signs - 8 hr 05/15/18 14:48 05/15/18 14:49 05/15/18 14:57 Temperature 100.5 F H Pulse Rate 205 H 117 H Respiratory Rate 24 22 Blood Pressure [Right Arm] 151/75 H 144/77 H Pulse Oximetry 96 96 05/15/18 15:23 05/15/18 15:32 05/15/18 16:57 Temperature 102.1 F H Pulse Rate 120 H 118 H 106 H Respiratory Rate 16 20 18 Blood Pressure [Right Arm] 145/107 H 120/76 108/58 L Pulse Oximetry 98 97 96 05/15/18 17:26 Temperature 101.2 F H Pulse Rate 97 H Respiratory Rate 21 Blood Pressure [Right Arm] 100/66 Pulse Oximetry 96 Medical Decision Making Medical Records Medical records reviewed: Yes I reviewed the patient's medical records. Lab Data Lab results reviewed: Yes I reviewed the patient's lab results. Result diagrams: 05/15/18 14:33 05/15/18 14:33 Lab Results 05/15/18 05/15/18 05/15/18 Range/Units 14:33 14:33 15:03 WBC 17.2 H (4.5-11.0) X10^3/uL RBC 4.41 (4.0-5.2) X10^6/uL Hgb 12.1 (12.0-16.0) g/dL Hct 37.9 (36-46) % MCV 86.0 (80-100) fL MCH 27.5 (26-34) PG MCHC 31.9 (30-36) % RDW 14.6 (11.6-14.8) % Plt Count 268 (150-400) X10^3/uL Neut % (Auto) 81.8 H (50-75) % Lymph % (Auto) 10.2 L (25-40) % [place] % (Auto) 7.2 (3-14) % Eos % (Auto) 0.3 L (2-4) % Baso % (Auto) 0.5 (0-2) % Neut # (Auto) 09383 H (5983-3404) /uL Lymph # (Auto) 1800 (9468-8748) /uL [place] # (Auto) 1200 H (0-900) /uL Eos # (Auto) 0 (0-450) /uL Baso # (Auto) 100 (0-100) /uL Sodium 140 (137-145) mmol/L Potassium 3.5 (3.4-5.1) mmol/L Chloride 102 (98-107) mmol/L Carbon Dioxide 28 (22-32) mmol/L BUN 12 (7-17) mg/dL Creatinine 0.60 (0.52-1.04) mg/dL Estimated GFR > 60.0 (>60) mL/min BUN/Creatinine Ratio 20.0 (6-22) Glucose 113 H (80-110) mg/dL Lactate (0.7-2.1) mmol/L Calcium 9.1 (8.4-10.2) mg/dL Procalcitonin 0.18 (<0.5) ng/mL Urine RBC (0-5/HPF) Urine WBC (0-5/HPF) Ur Squamous Epith Cells Urine Bacteria (None) Ur Culture Indicated? 05/15/18 05/15/18 Range/Units 15:24 17:15 WBC (4.5-11.0) X10^3/uL RBC (4.0-5.2) X10^6/uL Hgb (12.0-16.0) g/dL Hct (36-46) % MCV (80-100) fL MCH (26-34) PG MCHC (30-36) % RDW (11.6-14.8) % Plt Count (150-400) X10^3/uL Neut % (Auto) (50-75) % Lymph % (Auto) (25-40) % [place] % (Auto) (3-14) % Eos % (Auto) (2-4) % Baso % (Auto) (0-2) % Neut # (Auto) (3897-1470) /uL Lymph # (Auto) (5394-8288) /uL [place] # (Auto) (0-900) /uL Eos # (Auto) (0-450) /uL Baso # (Auto) (0-100) /uL Sodium (137-145) mmol/L Potassium (3.4-5.1) mmol/L Chloride (98-107) mmol/L Carbon Dioxide (22-32) mmol/L BUN (7-17) mg/dL Creatinine (0.52-1.04) mg/dL Estimated GFR (>60) mL/min BUN/Creatinine Ratio (6-22) Glucose (80-110) mg/dL Lactate 1.2 (0.7-2.1) mmol/L Calcium (8.4-10.2) mg/dL Procalcitonin (<0.5) ng/mL Urine RBC None seen (0-5/HPF) Urine WBC 0-1/hpf (0-5/HPF) Ur Squamous Epith Cells 0-1 /hpf Urine Bacteria None seen (None) Ur Culture Indicated? Cult not indicated Urine Dip Bedside Urine Glucose Negative Bedside Urine Bilirubin - Negative Bedside Urine Ketone - Negative Urine Specific [place] 1.010 Bedside Urine Occult Blood - Negative Bedside Urine pH 6.0 Bedside Urine Protein +/- 15 Bedside Urine Urobilinogen - Negative Bedside Urine Nitrite - Negative Bedside Urine Leukocytes - Negative Esterase Point of care testing: Urine Dip Bedside Urine Glucose Negative Bedside Urine Bilirubin - Negative Bedside Urine Ketone - Negative Urine Specific [place] 1.010 Bedside Urine Occult Blood - Negative Bedside Urine pH 6.0 Bedside Urine Protein +/- 15 Bedside Urine Urobilinogen - Negative Bedside Urine Nitrite - Negative Bedside Urine Leukocytes - Negative Esterase Imaging Data Chest x-ray: Radiologist's impression: PROCEDURE: XR CHEST 1V INDICATIONS: tachycardia and fever TECHNIQUE: One view of the chest was acquired. COMPARISON: [facility], CT, CT BIOSY LYMPH NODE, 04/25/2018, 10:04. [facility], CT, CT CHEST ABD PEL W CON, 03/31/2018, 11:03. [facility], CT, CHEST/ABD/PEL WITH CONTRAST, 07/03/2017, 8:30. [facility], CT, PE STUDY (CTA CHEST), 02/23/2017, 10:52. [facility], NM, NM PET CT FUSION SKULL 2 THIGH, 04/16/2018, 15:00. FINDINGS: Surgical changes and devices: None. Lungs and pleura: Lungs are clear. No pleural effusions or pneumothorax. Mediastinum: Mediastinal contours appear normal. Heart size is normal. Bones and chest wall: No suspicious bony lesions. Overlying soft tissues appear unremarkable. Severe left glenohumeral joint degeneration. IMPRESSION: No acute cardiopulmonary disease. Dictated by: Lou Arteaga M.D. on 05/15/2018 at 15:46 Approved by: Lou Arteaga M.D. on 05/15/2018 at 15:48 CT scan - abdomen: Radiologist's impression: ROCEDURE: CT ABDOMEN PELVIS W CON INDICATIONS: Fever with hx of needle BX concern for infection TECHNIQUE: After the administration of intravenous contrast, 5 mm thick sections acquired from the diaphragm to the symphysis. 5 mm coronal and sagittal reformats were acquired. For radiation dose reduction, the following was used: automated exposure control, adjustment of mA and/or kV according to patient size. COMPARISON: [facility], CT, CT BIOSY LYMPH NODE, 04/25/2018, 10:04. [facility], CT, CT CHEST ABD PEL W CON, 03/31/2018, 11:03. [facility], CT, ABDOMEN/PELVIS WITH CONTRAST, 12/01/2008, 8:22. FINDINGS: Image quality: Excellent. ABDOMEN: Lung bases: Scattered bibasilar scarring/atelectasis is seen.. Heart size is normal. Solid organs: Liver is normal in size and enhancement. Gallbladder is within normal limits. Biliary system is non dilated. Pancreas enhances normally. Spleen is normal in size and enhancement. No adrenal nodules. Kidneys demonstrate normal size and enhancement, without hydronephrosis. Peritoneum and bowel: Small hiatal hernia is seen. There is no gross abnormal bowel wall thickening. Interval development of [id number]-[id number] amount of ascites fluid is seen in abdomen or pelvis. No gross peritoneal free air. Nodes and vessels: Again noted is extensive retroperitoneal lymphadenopathy with the largest left periaortic lymph node measures 3 x 4 cm in size, compared to 2.5 x 3.7 cm in size on previous study. No definite enlarged mesenteric lymph nodes are seen. Aorta and inferior vena cava are normal in size. Miscellaneous: No ventral hernias. PELVIS: Genitourinary: Bladder wall thickness is normal. Miscellaneous: No inguinal hernias or adenopathy. Bones: No suspicious bony lesions. No vertebral body compression fractures. IMPRESSION: 1. Extensive retroperitoneal lymphadenopathy, further increased in size compared to previous study and is concerning for recurrent lymphoma. 2. Interval development of ithpg-yh-rfngyvvr amount of ascites fluid in abdomen or pelvis. No gross peritoneal free air. 3. No evidence of bowel obstruction. No gross abnormal bowel wall thickening. No definite mesenteric lymphadenopathy. 4. No discrete drainable abscess collection is identified. Dictated by: Jorje Villareal M.D. on 05/15/2018 at 16:31 Approved by: Jorje Villareal M.D. on 05/15/2018 at 16:43 ECG Data Attestation: I personally reviewed and interpreted this ECG as follows: Prior ECG tracings: not available for review Interpretation: Supraventricular tachycardia Ventricular rate at 0209 Normal axis Normal QRS Nonspecific ST T wave changes EKG time 0301 Sinus tachycardia Ventricular rate of 125 Normal axis Normal QRS Normal QTC No ST T wave changes MDM Narrative Medical decision making narrative: Patient arrived narrow complex regular tachycardia. She has had SVT in the past. Other than the palpitations no other symptoms. 6 mg of adenosine was given which improved her heart rate into the 120s. After approximately 5 min her heart rate return to above 200. She was then given 12 mg of adenosine which then converted her heart rate into the 120s once again. From that point she continued to improve in upon discharge heart rate was less than 100. Patient is nontoxic appearing. She does have a history of lymphoma. She is not currently undergoing chemotherapy. She is febrile today. Does have a white count with a left shift. The rest of her labs are unremarkable. Chest x-ray shows no signs of pneumonia. She has no skin changes concerning for cellulitis. Urine is unremarkable. I did discuss the case with who is her oncologist who did agree that even though her retroperitoneal lymph node biopsy was 3 weeks ago that obtaining a CT scan of her abdomen to confirm that there is no intra-abdominal abscess is appropriate. This was done and there is no signs of an abscess. She is very nontoxic appearing. Will start her on antibiotics per Dr. Gongora recommendation. Blood cultures were also obtained. I do not feel like she needs admitted the hospital secondary to this fever. Dr. Gongora agreed. Her heart rate did continue to improve. I suspect that the SVT was either incidental paroxysmal or secondary to her fever. She will take her Cardizem this evening. She was given return precautions. She expressed understanding and agreement plan. Discharge Plan Departure Patient Disposition: Home Clinical Impression: SVT (supraventricular tachycardia) Fever Qualifiers: Fever type: unspecified Qualified Code(s): R50.9 - Fever, unspecified Lymphoma Qualifiers: Lymphoma type: unspecified type Lymphoma site: unspecified region Qualified Code(s): C85.90 - Non-Hodgkin lymphoma, unspecified, unspecified site Instructions: Paroxysmal Supraventricular Tachycardia Activity Restrictions/Additional Instructions: Be sure to take your diltiazem this evening. You were given your 1st dose of antibiotics today. Fill the prescription and start taking them tomorrow. On Saturday contact your oncologist. Return to the emergency department for any new or worsening symptoms Prescriptions: New levofloxacin [Levaquin] 750 mg tablet 750 mg PO DAILY 6 Days Qty: 6 RF: 0 No Action multivitamin Tablet 1 tab PO DAILY Qty: 0 RF: 0 Probiotic capsule 1 cap PO DAILY Qty: 0 RF: 0 coQ10 (ubiquinol) capsule 250 mg PO DAILY Qty: 0 RF: 0 diltiazem HCl [Cartia XT] 180 mg capsule,extended release 24hr 180 mg PO QPM RF: 0 [place]-3 Fish Oil 1 cap PO DAILY RF: 0 Protandim 1 dose PO DAILY RF: 0 Vitamin D Liquid 1 dose topical DAILY RF: 0 Referrals: Mingo Jones MD [Primary Care Provider] -
[2018-05-15 14:49] LABS: Add Manual Diff / Slide Review NO; Basophils Absolute Auto 100 /uL (0-100); Basophils Percent Auto 0.5 % (0-2); Eosinophils Absolute Auto 0 /uL (0-450); Eosinophils Percent Auto 0.3 % (2-4); Hematocrit 37.9 % (36-46); Hemoglobin 12.1 g/dL (12.0-16.0); Lymphocytes Absolute Auto 1800 /uL (1100-4500); Lymphocytes Percent Auto 10.2 % (25-40); Mean Corpuscular HGB Conc 31.9 % (30-36); Mean Corpuscular Hemoglobin 27.5 PG (26-34); Monocytes Absolute Auto 1200 /uL (0-900); Monocytes Percent Auto 7.2 % (3-14); Neutrophils Absolute Auto 14000 /uL (1500-7000); Neutrophils Percent Auto 81.8 % (50-75); Platelet Count 268 X10^3/uL (150-400); Red Blood Cell Count 4.41 X10^6/uL (4.0-5.2); Red Cell Distribution Width 14.6 % (11.6-14.8); White Blood Cell Count 17.2 X10^3/uL (4.5-11.0)
--- NOTE | 2018-05-15 14:50 | PC.NURSE ---
1438 Pushed [address] Oswald and Yanet RN. Pt HR went to 128. 1442 Pt returns to [address] Oswald notified. 1448 12 Mg Adenosine pushed with Dr. Oswald and Yanet RN. HR 114 Sinus Tach.
[2018-05-15 14:58] LABS: Blood Urea Nitrogen 12 mg/dL (7-17); Calcium 9.1 mg/dL (8.4-10.2); Carbon Dioxide 28 mmol/L (22-32); Chloride 102 mmol/L (98-107); Estimated Glomerular Filt Rate > 60.0 mL/min (>60); Glucose 113 mg/dL (80-110); HEMOLYSIS < 15 (0-50); Potassium 3.5 mmol/L (3.4-5.1); Sodium 140 mmol/L (137-145)
[2018-05-15] MEDS: ADENOSINE 6 MG/2 ML VIAL IV (15:00)
[2018-05-15] MEDS: ADENOSINE 12 MG/4 ML SYRINGE IV (15:01)
--- NOTE | 2018-05-15 15:03 | DI.RAD.S_ITS ---
PROCEDURE: XR CHEST 1V INDICATIONS: tachycardia and fever TECHNIQUE: One view of the chest was acquired. COMPARISON: [facility], CT, CT BIOSY LYMPH NODE, 04/25/2018, 10:04. [facility], CT, CT CHEST ABD PEL W CON, 03/31/2018, 11:03. [facility], CT, CHEST/ABD/PEL WITH CONTRAST, 07/03/2017, 8:30. [facility], CT, PE STUDY (CTA CHEST), 02/23/2017, 10:52. [facility], NM, NM PET CT FUSION SKULL 2 THIGH, 04/16/2018, 15:00. FINDINGS: Surgical changes and devices: None. Lungs and pleura: Lungs are clear. No pleural effusions or pneumothorax. Mediastinum: Mediastinal contours appear normal. Heart size is normal. Bones and chest wall: No suspicious bony lesions. Overlying soft tissues appear unremarkable. Severe left glenohumeral joint degeneration. IMPRESSION: No acute cardiopulmonary disease. Dictated by: Lou Arteaga M.D. on 05/15/2018 at 15:46 Approved by: Lou Arteaga M.D. on 05/15/2018 at 15:48
[2018-05-15] MEDS: SODIUM CHLORIDE 0.9% 1,000 ML 1000 ML IV (15:05)
--- NOTE | 2018-05-15 15:22 | PC.NURSE ---
This RN remains at bedside for monitoring. Pt remains in Sinus tachycardia. Pt C/O freezing. Applied hot water bags to chest, bilateral armpits, and feet. Pt covered in warm blankets as well.
--- NOTE | 2018-05-15 15:27 | PC.NURSE ---
Patient denies pain and discomfort at this time.
[2018-05-15 15:52] LABS: Lactate (Lactic Acid) 1.2 mmol/L (0.7-2.1)
--- NOTE | 2018-05-15 16:02 | DI.CT.S_ITS ---
PROCEDURE: CT ABDOMEN PELVIS W CON INDICATIONS: Fever with hx of needle BX concern for infection TECHNIQUE: After the administration of intravenous contrast, 5 mm thick sections acquired from the diaphragm to the symphysis. 5 mm coronal and sagittal reformats were acquired. For radiation dose reduction, the following was used: automated exposure control, adjustment of mA and/or kV according to patient size. COMPARISON: [facility], CT, CT BIOSY LYMPH NODE, 04/25/2018, 10:04. [facility], CT, CT CHEST ABD PEL W CON, 03/31/2018, 11:03. [facility], CT, ABDOMEN/PELVIS WITH CONTRAST, 12/01/2008, 8:22. FINDINGS: Image quality: Excellent. ABDOMEN: Lung bases: Scattered bibasilar scarring/atelectasis is seen.. Heart size is normal. Solid organs: Liver is normal in size and enhancement. Gallbladder is within normal limits. Biliary system is non dilated. Pancreas enhances normally. Spleen is normal in size and enhancement. No adrenal nodules. Kidneys demonstrate normal size and enhancement, without hydronephrosis. Peritoneum and bowel: Small hiatal hernia is seen. There is no gross abnormal bowel wall thickening. Interval development of oznyl-ka-[id number] amount of ascites fluid is seen in abdomen or pelvis. No gross peritoneal free air. Nodes and vessels: Again noted is extensive retroperitoneal lymphadenopathy with the largest left periaortic lymph node measures 3 x 4 cm in size, compared to 2.5 x 3.7 cm in size on previous study. No definite enlarged mesenteric lymph nodes are seen. Aorta and inferior vena cava are normal in size. Miscellaneous: No ventral hernias. PELVIS: Genitourinary: Bladder wall thickness is normal. Miscellaneous: No inguinal hernias or adenopathy. Bones: No suspicious bony lesions. No vertebral body compression fractures. IMPRESSION: 1. Extensive retroperitoneal lymphadenopathy, further increased in size compared to previous study and is concerning for recurrent lymphoma. 2. Interval development of bcuqg-ya-wvwnnodd amount of ascites fluid in abdomen or pelvis. No gross peritoneal free air. 3. No evidence of bowel obstruction. No gross abnormal bowel wall thickening. No definite mesenteric lymphadenopathy. 4. No discrete drainable abscess collection is identified. Dictated by: Jorje Villareal M.D. on 05/15/2018 at 16:31 Approved by: Jorje Villareal M.D. on 05/15/2018 at 16:43
[2018-05-15 16:08] LABS: Procalcitonin 0.18 ng/mL (<0.5)
[2018-05-15 17:40] LABS: Bacteria Urine None Seen; RBC Urine None Seen (0-5/HPF)
[2018-05-15 17:55] LABS: Culture Indicated Urine Cult Not Indicated; Squamous Epithelial Cell Urine 0-1 /HPF; WBC Urine 0-1/HPF (0-5/HPF)
[2018-05-15] MEDS: levoFLOXacin 250 MG TABLET 750 MG PO (18:24)
== END 2018-05-15 19:18 | disposition home or self-care (01) ==
PROVIDERS: Emergency Provider Emergency Medicine; Family Provider Student in an Organized Health Care Education/Training Program; PCP Student in an Organized Health Care Education/Training Program
DX: I47.1 Supraventricular tachycardia (principal)
CPT/HCPCS: 36415; 36591; 71045; 74177; 80048; 81003; 81015; 83605; 84145; 85025; 87040; 93005; 96361; 96374; 99283; 99285; 99291; J0153; Q9967

== ENCOUNTER 2018-05-20 02:14 | Emergency (ER) | payer OTHER, SELFPAY ==
[2018-05-20 02:27] VITALS: BP 117/88; PULSE 211; RESP 21; TEMP 36.4; O2SAT 99; BMI 19.1
--- NOTE | 2018-05-20 02:36 | ED_ITS ---
HPI - Arrhythmia/Palpitations General Chief Complaint: Arrhythmia/Palpitations Stated Complaint: states have ventricular tachycardia attack Time Seen by Provider: 05/20/18 02:23 Source: patient Mode of arrival: ambulatory Limitations: no limitations History of Present Illness HPI narrative: A 72-year-old female, nonsmoker with known history of Hodgkin's lymphoma presents to the emergency department with a chief complaint of a rapid heart rate. She has a known history of SVT and was most recently seen a few days ago and successfully converted with adenosine 12 mg IV push. She feels palpitations but denies other symptoms such as dizziness, weakness or lightheadedness. She has no chest pain or shortness of breath. She states she took her Cardizem a bit late this evening, at about 12:30 a.m. which is abnormal for her. She denies nausea, vomiting or diarrhea. She saw the general surgeon today in consultation for a planned port placement later today MD complaint: rapid heart beat Duration: constant Severity: moderate Arrhythmia history: SVT Associated symptoms: denies other symptoms Treatments prior to arrival: vagal maneuvers Related Data Home Medications Medication Instructions Recorded Confirmed Probiotic 1 cap PO DAILY #0 07/04/12 05/19/18 coQ10 (ubiquinol) 250 mg PO DAILY #0 07/04/12 05/19/18 multivitamin 1 tab PO DAILY #0 07/04/12 05/19/18 [place]-3 Fish Oil 1 cap PO DAILY 05/15/18 05/19/18 Protandim 1 dose PO DAILY 05/15/18 05/19/18 Vitamin D Liquid 1 dose TOPICAL DAILY 05/15/18 05/19/18 diltiazem HCl [Cartia XT] 180 mg PO QPM 05/15/18 05/19/18 Previous Rx's Medication Instructions Recorded levofloxacin [Levaquin] 750 mg PO DAILY 6 Days #6 tab 05/15/18 Allergies Allergy/AdvReac Type Severity Reaction Status Date / Time NSAIDS (Non-Steroidal Allergy Intermediate HIVES Verified 05/19/18 13:19 Anti-Inflamma [NSAIDS (NON-STEROIDAL ANTI-INFLAMMA] amoxicillin [AMOXICILLIN] Allergy Mild rash Verified 05/19/18 13:19 Review of Systems Constitutional Denies chills, Denies fever(s), Denies lethargy and Denies weakness Eyes Denies change in vision, Denies eye discharge, Denies irritation and Denies loss of vision ENT Ears, Nose, Mouth, and Throat: Denies change in voice, Denies neck pain and Denies sore throat Cardiovascular Denies chest pain, Denies irregular heart rhythm, Denies lightheadedness, Reports palpitations, Denies dyspnea, Denies dyspnea on exertion and Denies orthopnea Respiratory Denies cough, Denies dyspnea, Denies dyspnea on exertion and Denies wheezing Gastrointestinal Gastrointestinal: Denies abdominal pain, Denies change in bowel habits, Denies diarrhea, Denies nausea and Denies vomiting Genitourinary Denies hematuria, Denies flank pain, Denies urinary incontinence and Denies urinary urgency Musculoskeletal Denies neck pain Integumentary/Breasts Denies pruritus, Denies erythema, Denies rash and Denies wounds Neurologic Denies confusion, Denies loss of vision and Denies weakness Psychiatric Denies anxiety, Denies confusion, Denies depression, Denies homicidal ideation and Denies suicidal ideation Endocrine Reports palpitations Hematologic/Lymphatic Denies easy bruising Allergic/Immunologic Denies wheezing [facility] Medical History SVT (supraventricular tachycardia) (Chronic) Follicular non-Hodgkin's lymphoma (Resolved) Surgical History History of removal of Port-a-Cath (Acute) Social History household members: family Smoking Status: Former smoker alcohol intake: never substance use type: does not use Social History household members: family Smoking Status: Former smoker alcohol intake: never substance use type: does not use Exam Narrative Exam Narrative: GENERAL: 72F appears well and younger than stated age, she piedad ears calm but a bit anxious. She is well developed HEAD: Atraumatic. Normocephalic. No temporal or scalp tenderness. EYES: Pupils equal round and reactive. Extraocular motions intact. No scleral icterus. No injection or drainage. ENT: Nose without bleeding, purulent drainage or septal hematoma. Throat without erythema, tonsillar hypertrophy or exudate. Uvula midline. Airway patent. NECK: Trachea midline. No JVD or lymphadenopathy. Supple, nontender, no meningeal signs. CARDIOVASCULAR: tachycardic and regular rhythm without murmurs, gallops, or rubs. RESPIRATORY: Clear to auscultation. Breath sounds equal bilaterally. No wheezes, rales, or rhonchi. GASTROINTESTINAL: Abdomen soft, non-tender, nondistended. No hepato- splenomegaly, or palpable masses. No guarding. EXTREMITIES: No clubbing, cyanosis, or edema. No joint tenderness, effusion, or edema noted. BACK: Nontender without deformity or crepitance. No flank tenderness. NEURO: AOx3. SKIN: No rash or erythema. Initial Vital Signs Initial Vital Signs: Vital Signs Temperature 97.6 F 05/20/18 02:27 Pulse Rate 211 H 05/20/18 02:27 Respiratory Rate 21 05/20/18 02:27 Blood Pressure 117/88 05/20/18 02:27 Pulse Oximetry 99 05/20/18 02:27 Course Course Narrative: cardizem 10mg IVP did nothing for patient rate. Patient converted successfully after Adenosine 6mg IVP. Orders Ordered: ED Orders 05/20/18 EKG-12 Lead Routine 05/20/18 02:35 Basic Metabolic Panel Stat Complete Blood Count AUTO DIFF Stat Magnesium Stat Thyroid Stimulating Hormone Stat Troponin & CK Cardiac Panel Stat Sodium Chloride (Normal Saline 0.9%) 1,000 mls @ 150 mls/hr IV CONT SWAPNA Last Admin: 05/20/18 02:39 Dose: 150 mls/hr Discontinued Medications Adenosine (Adenocard) 6 mg IV NOW ONE Stop: 05/20/18 02:55 Last Admin: 05/20/18 03:03 Dose: 6 mg Diltiazem HCl (Cardizem) 10 mg IV NOW ONE Stop: 05/20/18 02:34 Last Admin: 05/20/18 02:39 Dose: 10 mg Reevaluation(s) Reevaluation #1: Patient feeling much better after cardioversion with adenosine Vital Signs - 8 hr 05/20/18 02:27 05/20/18 02:39 05/20/18 02:52 Temperature 97.6 F Pulse Rate 211 H 207 H 203 H Respiratory Rate 21 11 L Blood Pressure 117/88 104/84 Blood Pressure [Left Arm] 93/71 Pulse Oximetry 99 100 05/20/18 03:11 Temperature Pulse Rate 112 H Respiratory Rate 14 Blood Pressure Blood Pressure [Left Arm] 117/69 Pulse Oximetry 100 MDM - Arrhythmia/Palpitations Differential Diagnosis Differential diagnosis: Likely palpitations Medical Records Attestation: I reviewed the patient's medical records. Lab Data Attestation: I reviewed the patient's lab results. Result diagrams: 05/20/18 02:35 05/20/18 02:35 Lab Results 05/20/18 05/20/18 Range/Units 02:35 02:35 WBC 14.3 H (4.5-11.0) X10^3/uL RBC 4.37 (4.0-5.2) X10^6/uL Hgb 12.0 (12.0-16.0) g/dL Hct 37.3 (36-46) % MCV 85.3 (80-100) fL MCH 27.5 (26-34) PG MCHC 32.2 (30-36) % RDW 15.1 H (11.6-14.8) % Plt Count 337 (150-400) X10^3/uL Neut % (Auto) 76.3 H (50-75) % Lymph % (Auto) 15.2 L (25-40) % [place] % (Auto) 7.5 (3-14) % Eos % (Auto) 0.4 L (2-4) % Baso % (Auto) 0.6 (0-2) % Neut # (Auto) 58784 H (7845-3498) /uL Lymph # (Auto) 2200 (3054-1920) /uL [place] # (Auto) 1100 H (0-900) /uL Eos # (Auto) 100 (0-450) /uL Baso # (Auto) 100 (0-100) /uL Sodium 138 (137-145) mmol/L Potassium 3.6 (3.4-5.1) mmol/L Chloride 102 (98-107) mmol/L Carbon Dioxide 25 (22-32) mmol/L BUN 12 (7-17) mg/dL Creatinine 0.60 (0.52-1.04) mg/dL Estimated GFR > 60.0 (>60) mL/min BUN/Creatinine Ratio 20.0 (6-22) Glucose 122 H (80-110) mg/dL Calcium 9.3 (8.4-10.2) mg/dL Magnesium 2.1 (1.6-2.3) mg/dL Total Creatine Kinase 39 (30-135) U/L CK-MB (CK-2) TNP CK-MB (CK-2) Rel Index TNP Troponin I < 0.012 (0.01-0.034) ng/mL ECG Data Attestation: I personally reviewed and interpreted this ECG as follows: Prior ECG tracings: available for review Interpretation: EKG is the SVT with rate [ 207] and free of any signs of ischemia or ectopy. No ST segmental elevation or depression. No T wave in versions Discharge Plan Departure Patient Disposition: Home Clinical Impression: SVT (supraventricular tachycardia) Instructions: DI for Paroxysmal Supraventricular Tachycardia Activity Restrictions/Additional Instructions: *You have been diagnosed with [ SVT] *What to do: *Take medications as directed *Follow up with your primary care provider in 2-3 days, call for an appointment. Let them know you were seen in the Emergency Department and that we ask that you be seen in follow up *Return to ER if you should have any new, worsening or concerning symptoms Prescriptions: No Action multivitamin Tablet 1 tab PO DAILY Qty: 0 RF: 0 Probiotic capsule 1 cap PO DAILY Qty: 0 RF: 0 coQ10 (ubiquinol) capsule 250 mg PO DAILY Qty: 0 RF: 0 diltiazem HCl [Cartia XT] 180 mg capsule,extended release 24hr 180 mg PO QPM RF: 0 [place]-3 Fish Oil 1 cap PO DAILY RF: 0 Protandim 1 dose PO DAILY RF: 0 Vitamin D Liquid 1 dose topical DAILY RF: 0 levofloxacin [Levaquin] 750 mg tablet 750 mg PO DAILY 6 Days Qty: 6 RF: 0 Referrals: Mingo Jones MD [Primary Care Provider] -
[2018-05-20 02:39] VITALS: BP 104/84; PULSE 207
[2018-05-20] MEDS: SODIUM CHLORIDE 0.9% 1,000 ML 150 ML IV (02:39)
[2018-05-20] MEDS: dilTIAZem 5 MG/ML SDV 10 MG IV (02:39)
[2018-05-20 02:43] LABS: Add Manual Diff / Slide Review NO; Basophils Absolute Auto 100 /uL (0-100); Basophils Percent Auto 0.6 % (0-2); Eosinophils Absolute Auto 100 /uL (0-450); Eosinophils Percent Auto 0.4 % (2-4); Hematocrit 37.3 % (36-46); Lymphocytes Absolute Auto 2200 /uL (1100-4500); Lymphocytes Percent Auto 15.2 % (25-40); Mean Corpuscular HGB Conc 32.2 % (30-36); Mean Corpuscular Hemoglobin 27.5 PG (26-34); Mean Corpuscular Volume 85.3 fL (80-100); Monocytes Absolute Auto 1100 /uL (0-900); Monocytes Percent Auto 7.5 % (3-14); Neutrophils Absolute Auto 10900 /uL (1500-7000); Neutrophils Percent Auto 76.3 % (50-75); Platelet Count 337 X10^3/uL (150-400); Red Blood Cell Count 4.37 X10^6/uL (4.0-5.2); Red Cell Distribution Width 15.1 % (11.6-14.8); White Blood Cell Count 14.3 X10^3/uL (4.5-11.0)
[2018-05-20 02:52] VITALS: BP 93/71; PULSE 203; RESP 11; O2SAT 100
[2018-05-20 02:54] LABS: Blood Urea Nitrogen 12 mg/dL (7-17); Calcium 9.3 mg/dL (8.4-10.2); Carbon Dioxide 25 mmol/L (22-32); Chloride 102 mmol/L (98-107); Creatine Kinase 39 U/L (30-135); Estimated Glomerular Filt Rate > 60.0 mL/min (>60); Glucose 122 mg/dL (80-110); HEMOLYSIS < 15 (0-50); Magnesium 2.1 mg/dL (1.6-2.3); Potassium 3.6 mmol/L (3.4-5.1); Sodium 138 mmol/L (137-145)
[2018-05-20] MEDS: ADENOSINE 6 MG/2 ML VIAL IV (03:03)
[2018-05-20 03:06] LABS: Troponin I < 0.012 ng/mL (0.01-0.034)
[2018-05-20 03:11] VITALS: BP 117/69; PULSE 112; RESP 14; O2SAT 100
--- NOTE | 2018-05-20 03:12 | PC.NURSE ---
6 mg adenosine given rapid IVP with Dr Anna at bedside. Pt tolerated well. Converted to sinus rate 106, BP stable.
[2018-05-20 03:28] LABS: Thyroid Stimulating Hormone 2.81 uIU/mL (0.47-4.68)
[2018-05-20 03:54] VITALS: BP 95/52; PULSE 101; RESP 11; O2SAT 97
[2018-05-20 04:53] VITALS: BP 88/58; PULSE 98; RESP 14; O2SAT 99
== END 2018-05-20 04:55 | disposition home or self-care (01) ==
PROVIDERS: Emergency Provider Emergency Medicine; Family Provider Student in an Organized Health Care Education/Training Program; PCP Student in an Organized Health Care Education/Training Program
DX: R00.2 Palpitations (principal)
CPT/HCPCS: 36591; 80048; 82550; 83735; 84443; 84484; 85025; 93005; 99214; 99291; J0153

== ENCOUNTER 2018-05-20 10:54 | Day surgery (SDC) | payer OTHER, SELFPAY ==
[2018-05-20] VITALS (7 sets, daily range): BP systolic 100–121; BP diastolic 63–76; PULSE 74–95; RESP 11–16; TEMP 36.2–36.9; O2SAT 97–99; BMI 18.8
--- NOTE | 2018-05-20 | DI.RAD.S_ITS ---
PROCEDURE: XR CHEST 1V INDICATIONS: PORT A CATH PLACEMENT TECHNIQUE: One view of the chest was acquired. COMPARISON: [facility], CR, XR CHEST 1V, 05/15/2018, 15:10. FINDINGS: Surgical changes and devices: Right chest port with the tip projecting in the upper SVC. Lungs and pleura: No acute consolidation. Scattered subsegmental atelectasis and/or scarring. No pleural effusions or pneumothorax. Mediastinum: Mediastinal contours appear normal. Heart size is normal. Bones and chest wall: No suspicious bony lesions. Overlying soft tissues appear unremarkable. Bilateral shoulder joint degeneration. IMPRESSION: No acute disease. No pneumothorax Dictated by: Drake Clements M.D. on 05/20/2018 at 13:28 Approved by: Drake Clements M.D. on 05/20/2018 at 13:29
[2018-05-20] MEDS: LACTATED RINGERS 1,000 ML 42 ML IV (11:42)
--- NOTE | 2018-05-20 12:04 | PM.PREOP ---
Pre-operative Note Interval Note History & Physical reviewed/Exam performed by Physician: Yes Changes to H&P: No H&P completed within 30 days and has changed as indicated here:: Patient seen in the preoperative area. History physical examination is documented yesterday is on the chart and has not changed. She has had some intermittent issues with SVT now controlled. Anesthesia aware. Proceed with port placement as planned today.
[2018-05-20] MEDS: CLINDAMYCIN 600 MG/50 ML PIGGYBACK 50 MG IV (12:14)
--- NOTE | 2018-05-20 12:37 | SUR.OPER ---
Supine on padded OR bed, head on pillow, arms bilateral padded and tucked at side, legs uncrossed, safety belt at thigh, tape over blanket over lower legs .
[2018-05-20] MEDS: LIDOCAINE 1% 30 ML INJ INJ (12:49)
--- NOTE | 2018-05-20 13:17 | PM.OP.1 ---
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 She plans chemotherapy for definitive treatment. She requires long-term IV access for such. Port-A-Cath is recommended. Surgeon: Bin Valencia Click Yes if Unassisted: Yes Anesthesia Type: General Operative Notes Findings: Right subclavian vein tunneled central venous port device in good position and postoperative chest x-ray showing no evidence of pneumothorax or other complications Closure Type: primary Specimen(s): none sent Prosthetic devices, grafts, tissues, transplants, or devices: [place] slim profile power port central venous tunneled catheter Applied: catheter (See above) Blood products transfused: none Procedure in detail: After obtaining informed consent the patient was brought to the operating room placed supine on the table. After satisfactory induction of anesthesia the chest and neck were prepped and draped in usual sterile fashion. SCOAP time out was performed per standard protocol. Patient was placed in Trendelenburg position. 1% plain lidocaine was injected in the skin and subcutaneous tissue at the right infraclavicular region. Access needle was then placed deep to the clavicle in the right subclavian vein was accessed without difficulty. Guidewire was threaded distally and position in the right heart was verified by fluoroscopy. Patient was returned to supine position. Needle was removed and 15 scalpel blade was used to perform a stab incision at the guidewire insertion site as well as a transverse incision several cm below the insertion site for creation of a subcutaneous pocket. Bovie was used to obtain hemostasis and carried the dissection down to the pectoralis fascia were blunt dissection created a subcutaneous pocket just large enough to accommodate the port. The device had been previously assembled and flushed with saline using a straight Bowers needle. The catheter was then brought through a subcutaneous tunnel from the pocket to the guidewire insertion site and the port itself was placed in the subcutaneous pocket. Under direct fluoroscopic visualization the venous dilator and sheath were inserted via sterile Seldinger technique and noted to easily traverse into the superior vena cava. Guidewire and sheath removed as a single unit. Catheter was then cut to appropriate length at approximately 16 cm after visualizing under fluoroscopy. Catheter was then threaded distally through the venous sheath into the central venous system. Sheath was removed. Final imaging showed the catheter to be in good position with the tip in the superior vena cava and no evidence of any kinks. Port was accessed with a straight Bowers needle and noted to aspirate and flush easily. No evidence of extravasation or leak was noted. Port was secured to the pectoralis fascia with 2 individual 3 0 Prolene suture. Wound was irrigated noted to be hemostatic. Subcutaneous tissue was reapproximated with interrupted 3 0 Vicryl suture. Skin was closed at all sites with 4 O Monocryl in a running subcuticular fashion. Dermal adhesive was applied. Port was accessed percutaneously and once again noted to aspirate and flush easily with saline. 2000 units of heparin was then inserted as well. Anesthesia was reversed and patient extubated in the operating room. She was taken recovery stable condition. Complications: none Condition: stable Disposition: PACU Plan for aftercare: 1. Discharge home 2. Follow up in medical oncology as previously scheduled
== END 2018-05-20 14:30 | disposition home or self-care (01) ==
PROVIDERS: Family Provider Student in an Organized Health Care Education/Training Program; PCP Student in an Organized Health Care Education/Training Program; Visit Provider Surgery
PROC: (CPT 36561; principal; 2018-05-20 12:00)
DX: C81.90 Hodgkin lymphoma, unspecified, unspecified site (principal); I47.1 Supraventricular tachycardia; Z87.891 Personal history of nicotine dependence
CPT/HCPCS: 36561; 36591; 71045; 76000; 80048; 82550; 83735; 84443; 84484; 85025; 93005; 93010; 99214; 99283; 99291; C1788; J0153; J1644; J2250; J2704; J3010

== ENCOUNTER → 2018-05-21 12:35 | Outpatient (CLI) | payer OTHER, SELFPAY ==
--- NOTE | 2018-05-21 12:36 | DI.NM.S_ITS ---
PROCEDURE: [facility] RADIOPHARMACEUTICAL: 25.9 mCi Tc-99m labeled autologous red cells IV. INDICATIONS: Hodgkin lymphoma, unspecified, unspecified site TECHNIQUE: After intravenous administration of autologous labeled WBC, MACEDONIAN views of the chest were obtained. A region of interest was drawn around the left ventricle to calculate left ventricle ejection fraction. COMPARISON: [place], [place], CARDIAC BLOOD POOL RBC, 08/31/2016, 10:40. [place], CARDIAC BLOOD POOL RBC, 09/19/2016, 15:32. [place], CARDIAC BLOOD POOL RBC, 10/19/2016, 10:09. [place], CARDIAC BLOOD POOL RBC, 11/19/2016, 10:53. [place], CARDIAC BLOOD POOL RBC, 12/19/2016, 11:23. [place], CARDIAC BLOOD POOL RBC, 06/04/2016, 13:07. FINDINGS: The heart and great vessels are of normal size and configuration. The left ventricle contracts normally, with left ventricle ejection fraction of 58.7% (72.5% on 12/19/2016). Normal ejection fractions for this study are above 55%. A drop from baseline ejection fraction of greater than 10 percentage points or to below 45% on follow-up studies may be considered significant. IMPRESSION: Left ventricular ejection fraction is at the low range of normal. the left ventricular ejection fraction has declined from 72.5% on 12/19/2016 to 58.7%. Dictated by: Lou Arteaga M.D. on 05/21/2018 at 13:56 Approved by: Lou Arteaga M.D. on 05/21/2018 at 14:00
== END ==
PROVIDERS: Family Provider Student in an Organized Health Care Education/Training Program; PCP Student in an Organized Health Care Education/Training Program; Visit Provider Internal Medicine Hematology & Oncology
DX: C81.90 Hodgkin lymphoma, unspecified, unspecified site (principal)
CPT/HCPCS: 78472; A9512; A9538

== ENCOUNTER → 2018-08-11 12:40 | Outpatient (CLI) | payer OTHER, SELFPAY ==
--- NOTE | 2018-08-11 13:08 | DI.CT.S_ITS ---
PROCEDURE: CT ANGIO CHEST INDICATIONS: shortnness of breath, rule out PE TECHNIQUE: After the administration of intravenous contrast, 2 mm thick sections acquired from the pulmonary apices to the posterior costophrenic angles. 3-dimensional maximum intensity projection (MIP) coronal and sagittal reformats were then acquired through the thorax. For radiation dose reduction, the following was used: automated exposure control, adjustment of mA and/or kV according to patient size. COMPARISON: , CO, PET NECK TO MID THIGH, 08/06/2018, 9:47. FINDINGS: Image quality: Excellent. Pulmonary arteries: Pulmonary arteries are normal in size, and demonstrate no intraluminal filling defects to suggest central pulmonary embolism. Lungs and pleura: Lungs are [place] the bibasilar scarring/atelectasis is seen. No pleural effusions or pneumothorax. Central and peripheral airways are patent. Mediastinum: Heart size is normal, without pericardial effusion. No mediastinal or hilar adenopathy by size criteria. Thoracic aorta is normal in caliber and enhancement. Esophagus is normal in caliber, without hiatal hernia. Bones and chest wall: Right chest wall Port-A-Cath tip is in SVC. No suspicious bony lesions. Ribs and thoracic spine appear intact throughout. Degenerative disc disease throughout thoracic spine is seen with mild to moderate kyphosis centered at T7-8 level. Thyroid gland is within normal limits. No axillary or supraclavicular adenopathy. Abdomen: Visualized upper abdominal solid organs appear normal in the early arterial phase of enhancement. IMPRESSION: 1. No evidence of pulmonary emboli. No thoracic aortic aneurysm or dissection. 2. Bibasilar scarring/atelectasis. Bilateral lung pradhan are otherwise clear. 3. No gross mediastinal or hilar lymphadenopathy. Dictated by: Jorje Villareal M.D. on 08/11/2018 at 13:09 Approved by: Jorje Villareal M.D. on 08/11/2018 at 13:21
== END ==
PROVIDERS: Family Provider Student in an Organized Health Care Education/Training Program; PCP Student in an Organized Health Care Education/Training Program; Visit Provider Internal Medicine Hematology & Oncology
DX: R06.02 Shortness of breath (principal); C81.96 Hodgkin lymphoma, unspecified, intrapelvic lymph nodes; Z85.72 Personal history of non-Hodgkin lymphomas
CPT/HCPCS: 71275; Q9967

== ENCOUNTER → 2019-01-09 10:02 | Outpatient (CLI) | payer OTHER, SELFPAY ==
[2019-01-09 11:11] LABS: Add Manual Diff / Slide Review NO; Basophils Absolute Auto 0 /uL (0-100); Basophils Percent Auto 0.6 % (0-2); Eosinophils Absolute Auto 100 /uL (0-450); Eosinophils Percent Auto 2.9 % (2-4); Hematocrit 38.1 % (36-46); Lymphocytes Absolute Auto 700 /uL (1100-4500); Lymphocytes Percent Auto 21.1 % (25-40); Mean Corpuscular HGB Conc 34.1 % (30-36); Mean Corpuscular Volume 93.7 fL (80-100); Monocytes Absolute Auto 500 /uL (0-900); Monocytes Percent Auto 15.4 % (3-14); Neutrophils Absolute Auto 2100 /uL (1500-7000); Platelet Count 124 X10^3/uL (150-400); Red Blood Cell Count 4.06 X10^6/uL (4.0-5.2); Red Cell Distribution Width 14.6 % (11.6-14.8); White Blood Cell Count 3.5 X10^3/uL (4.5-11.0)
[2019-01-09 11:19] LABS: Alanine Aminotransferase 34 IU/L (9-52); Albumin 4.6 g/dL (3.5-5.0); Albumin Globulin Ratio 1.9 (1.0-2.8); Alkaline Phosphatase 88 U/L (38-126); Aspartate Aminotransferase 45 IU/L (14-36); BUN Creatinine Ratio 26.7 (6-22); Bilirubin Total 0.5 mg/dL (0.2-1.3); Blood Urea Nitrogen 16 mg/dL (7-17); Calcium 9.6 mg/dL (8.4-10.2); Carbon Dioxide 30 mmol/L (22-32); Chloride 102 mmol/L (98-107); Estimated Glomerular Filt Rate > 60.0 mL/min (>60); Globulin 2.4 g/dL (1.7-4.1); Glucose 74 mg/dL (80-110); HEMOLYSIS < 15 (0-50); Potassium 3.9 mmol/L (3.4-5.1); Sodium 140 mmol/L (137-145)
[2019-01-09 12:00] LABS: Iron 83 ug/dL (37-170)
[2019-01-09 12:17] LABS: Free T3, Triiodothyronine Free 3.34 pg/mL (2.77-5.27); Free T4, Direct Thyroxine 1.19 ng/dL (0.78-2.19)
[2019-01-09 12:31] LABS: Thyroid Stimulating Hormone 1.58 uIU/mL (0.47-4.68)
== END ==
PROVIDERS: Family Provider Internal Medicine Hematology & Oncology; PCP Student in an Organized Health Care Education/Training Program; Visit Provider Naturopath
DX: Z00.00 Encounter for general adult medical examination without abnormal findings (principal); E03.9 Hypothyroidism, unspecified; R53.83 Other fatigue; M81.0 Age-related osteoporosis without current pathological fracture
CPT/HCPCS: 36415; 80053; 82306; 83540; 84439; 84443; 84481; 85025

== ENCOUNTER → 2019-07-16 08:50 | Outpatient (CLI) | payer MEDICARE, OTHER, SELFPAY ==
--- NOTE | 2019-07-16 08:56 | DI.US.S_ITS ---
PROCEDURE: US ABDOMEN COMPLETE INDICATIONS: ABDOMINAL PAIN RIGHT SIDE LATERAL TECHNIQUE: Real-time scanning was performed of the abdominal and retroperitoneal organs, with image documentation. COMPARISON: [facility], CT, CT ABDOMEN PELVIS W CON, 05/15/2018, 16:02. FINDINGS: Liver: Liver is normal in size and homogeneous in echotexture. Gallbladder: No findings of gallstones or sludge are seen. The gallbladder wall is not thickened, measuring 3 mm or less. No specific pericholecystic fluid is seen. The sonographic Garcia sign is negative. Biliary ducts: Intrahepatic bile ducts are non-dilated. Extrahepatic bile duct caliber measures 4 mm. Normal is 6-7 mm or less in diameter, or 10 mm or less post-cholecystectomy. Pancreas: Visualized portions of the pancreas are sonographically normal. Spleen: Spleen is normal in size and homogeneous in echotexture. Kidneys: Kidneys are normal in size and echotexture. Right kidney measures 9.9 cm long; left kidney measures 10 cm long. No hydronephrosis or nephrolithiasis. No solid masses. Aorta: Visualized aorta is normal in caliber at less than 3 cm. Iliacs: Proximal common iliac arteries are normal in caliber at less than 2.5 cm. IVC: Intrahepatic inferior vena cava is patent. Miscellaneous: No free abdominal fluid. IMPRESSION: Normal ultrasound, without an imaging explanation found for the patient's presenting history. The gallbladder demonstrates a normal sonographic appearance. No biliary dilatation is seen. Dictated by: Kingsley Villa M.D. on 07/16/2019 at 10:03 Approved by: Kingsley Villa M.D. on 07/16/2019 at 10:04
== END ==
PROVIDERS: Family Provider Internal Medicine Hematology & Oncology; PCP Student in an Organized Health Care Education/Training Program; Referring Provider Student in an Organized Health Care Education/Training Program; Visit Provider Student in an Organized Health Care Education/Training Program
DX: R10.31 Right lower quadrant pain (principal)
CPT/HCPCS: 76700

== ENCOUNTER → 2019-09-08 11:52 | Outpatient (CLI) | payer MEDICARE, OTHER, SELFPAY ==
[2019-09-10 04:08] LABS: COVID19 Sendout Not Detected (Not Detected)
== END ==
PROVIDERS: Family Provider Internal Medicine Hematology & Oncology; PCP Student in an Organized Health Care Education/Training Program; Visit Provider Registered Nurse
DX: R05 Cough (principal)
CPT/HCPCS: 87635

== ENCOUNTER → 2019-09-18 09:28 | Outpatient (CLI) | payer MEDICARE, OTHER, SELFPAY ==
--- NOTE | 2019-09-18 09:31 | DI.CT.S_ITS ---
PROCEDURE: CT CHEST ABD PEL W CON INDICATIONS: Non hodgkins Lymphoma TECHNIQUE: After the administration of oral and intravenous contrast, 5 mm thick sections acquired from the lung apices to the symphysis. 5 mm coronal and sagittal reformats were performed, with additional 7 mm coronal MIP reformats through the lungs. For radiation dose reduction, the following was used: automated exposure control, adjustment of mA and/or kV according to patient size. COMPARISON: [place], [place], PET NECK TO MID THIGH, 11/05/2018, 9:00. [facility], CT, CT ANGIO CHEST, 08/11/2018, 12:56. [place], [place], PET NECK TO MID THIGH, 08/06/2018, 9:47. [facility], [place], [place] MUGA, 05/21/2018, 12:41. [facility], CR, XR CHEST 1V, 05/20/2018, 13:20. [facility], CT, CT ABDOMEN PELVIS W CON, 05/15/2018, 16:02. [facility], CT, CT CHEST ABD PEL W CON, 03/31/2018, 11:03. FINDINGS: Image quality: Excellent. CHEST: Lungs and pleura: No acute consolidation. There is stress scarring and atelectasis in the lingula and right lung base. 3 mm nodule present within the right posterior sulcus on image 265/2 appears new since prior comparison studies. No pleural effusions or pneumothorax. Central and peripheral airways appear patent and normal in caliber. Mediastinum: Heart size is normal. No pericardial effusion. No mediastinal or hilar adenopathy by size criteria. Thoracic aorta and central pulmonary arteries are normal in size. Esophagus is normal in caliber. No hiatal hernia. Chest wall: No axillary or supraclavicular adenopathy by size criteria. Thyroid gland negative. ABDOMEN: Solid organs: Ill-defined hyperdense 0.8 x 1.3 cm lesion in the left hepatic lobe it appears new since prior studies. Gallbladder grossly unremarkable. Biliary system is non dilated. Pancreas enhances normally. Spleen is normal in size and enhancement. No adrenal nodules. Kidneys demonstrate normal size and enhancement, without hydronephrosis. Peritoneum and bowel: Small hiatal hernia. Bowel loops demonstrate normal wall thickness and caliber. No free fluid or air. Nodes and vessels: Shotty subcentimeter mesenteric lymph nodes. These appear unchanged. Aorta and inferior vena cava are normal in size. Miscellaneous: No ventral hernias. PELVIS: Genitourinary: Bladder wall thickness is normal. Miscellaneous: No inguinal hernias or adenopathy. Bones: No suspicious bony lesions. No vertebral body compression fractures. IMPRESSION: Interval development of 3 mm right basilar pulmonary nodule, and left hepatic lobe hypoattenuating focus. These findings technically indeterminate at this time although warrant continued close observation on subsequent studies to exclude early metastatic disease. Elsewhere, grossly stable examination Dictated by: Drake Clements M.D. on 09/18/2019 at 11:51 Approved by: Drake Clements M.D. on 09/18/2019 at 12:14
== END ==
PROVIDERS: Family Provider Internal Medicine Hematology & Oncology; PCP Student in an Organized Health Care Education/Training Program; Referring Provider Internal Medicine; Visit Provider Internal Medicine
DX: C81.90 Hodgkin lymphoma, unspecified, unspecified site (principal); R91.1 Solitary pulmonary nodule
CPT/HCPCS: 71260; 74177

== ENCOUNTER → 2019-12-02 08:31 | Outpatient (CLI) | payer MEDICARE, OTHER, SELFPAY ==
--- NOTE | 2019-12-02 08:33 | DI.CT.S_ITS ---
PROCEDURE: CT CHEST ABD PEL W CON INDICATIONS: f/u lung and liver lesions seen in August 2019, and f/u HD TECHNIQUE: After the administration of oral and intravenous contrast, 5 mm thick sections acquired from the lung apices to the symphysis. 5 mm coronal and sagittal reformats were performed, with additional 7 mm coronal MIP reformats through the lungs. For radiation dose reduction, the following was used: automated exposure control, adjustment of mA and/or kV according to patient size. COMPARISON: [facility], CT, CHEST ABDOMEN PELVIS WITH CONTRAST, 09/07/2009, 10:07. [facility], CT, CHEST ABDOMEN PELVIS WITH CONTRAST, 04/05/2010, 9:58. [facility], CT, CT ANGIO CHEST, 08/11/2018, 12:56. [place], [place], PET NECK TO MID THIGH STD, 06/13/2016, 9:29. [facility], CT, NECK/CHEST/ABD/PEL W CONTRAST, 05/30/2016, 9:53. [place], [place], PET/CT SKULL BASE TO MID THIGH, 08/10/2016, 9:49. [facility], CT, CT ABDOMEN PELVIS W CON, 05/15/2018, 16:02. [facility], CT, CHEST/ABD/PEL WITH CONTRAST, 07/03/2017, 8:30. [facility], CT, CT CHEST ABD PEL W CON, 03/31/2018, 11:03. [place], [place], [place] PET CT FUSION SKULL 2 THIGH, 04/16/2018, 15:00. [place], [place], PET NECK TO MID THIGH, 08/06/2018, 9:47. [facility], CT, CT CHEST ABD PEL W CON, 09/18/2019, 10:37. FINDINGS: Image quality: Excellent. CHEST: Lungs and pleura: The 3 mm nodule in the right lower lobe seen on the last exam is no longer visualized. There are subpleural densities in lingula and right lower, consistent with scars and/or atelectasis. No acute airspace opacities. No pleural effusions or pneumothorax. Central and peripheral airways appear patent and normal in caliber. Mediastinum: Heart size is normal. No pericardial effusion. No mediastinal or hilar adenopathy by size criteria. Thoracic aorta and central pulmonary arteries are normal in size. Esophagus is normal in caliber. There is a small hiatal hernia. Chest wall: No axillary or supraclavicular adenopathy by size criteria. Thyroid gland is unremarkable. ABDOMEN: Solid organs: The 1.3 cm liver lesion in the lateral segment of the left hepatic lobe seen on the last CT is not visualized on the current exam. Liver is normal in size and enhancement. Gallbladder is normal. Biliary system is non-dilated. Pancreas enhances normally. Spleen is normal in size and enhancement. No adrenal nodules. Kidneys demonstrate normal size and enhancement, without hydronephrosis. Peritoneum and bowel: There is a large amount of stool in colon. Bowel loops demonstrate normal wall thickness and caliber. No free fluid or air. Nodes and vessels: No retroperitoneal or mesenteric adenopathy by size criteria. Aorta and inferior vena cava are normal in size. Miscellaneous: No ventral hernias. PELVIS: Genitourinary: Bladder wall thickness is normal. Miscellaneous: No inguinal hernias or adenopathy. Bones: No suspicious bony lesions. No vertebral body compression fractures. IMPRESSION: 1. No evidence for recurrent lymphoma in thorax, abdomen or pelvis. 2. The 1.3 cm liver lesion in the left hepatic lobe seen on the last exam is not visualized on the current exam. It is uncertain the disappearance of the lesion is due to treatment response or simply related to timing of contrast opacification. If there is no interval treatment, this lesion could represent a hepatic hemangioma that is inconspicuous on the current scan due to slight difference contrast timing. If clinically indicated, ultrasound may be helpful. 3. The 3 mm nodule in the right lung base seen on the last exam is no longer visualized. Dictated by: Lou Arteaga M.D. on 12/02/2019 at 18:37 Transcribed by: SARAH on 12/02/2019 at 19:16 Approved by: Lou Arteaga M.D. on 12/03/2019 at 8:21
== END ==
PROVIDERS: Family Provider Internal Medicine Hematology & Oncology; PCP Student in an Organized Health Care Education/Training Program; Referring Provider Student in an Organized Health Care Education/Training Program; Visit Provider Internal Medicine
DX: C81.98 Hodgkin lymphoma, unspecified, lymph nodes of multiple sites (principal); R91.1 Solitary pulmonary nodule; K76.9 Liver disease, unspecified; K44.9 Diaphragmatic hernia without obstruction or gangrene
CPT/HCPCS: 71260; 74177; Q9967

== ENCOUNTER 2020-01-06 19:59 | Emergency (ER) | payer MEDICARE, OTHER, SELFPAY ==
[2020-01-06] VITALS (15 sets, daily range): BP systolic 91–143; BP diastolic 63–78; PULSE 98–216; RESP 13–27; O2SAT 96–100
--- NOTE | 2020-01-06 20:12 | ED.ARRPALP ---
HPI - Arrhythmia/Palpitations General Chief Complaint: Arrhythmia/Palpitations Stated Complaint: states SVT attack Time Seen by Provider: 01/06/20 20:05 Source: patient Mode of arrival: Ambulatory Limitations: no limitations History of Present Illness HPI narrative: Who has a longstanding history of issues with SVT here stating that her heart rate is fast. She does take diltiazem at home. She took this medication approximately 45 minutes prior to arrival. She states she normally takes it at night. She states that she felt like her heart started to go fast a couple hours prior to coming to the emergency department. She denies any chest pain, shortness of breath, lightheadedness. When this has happened to her in the past she receives IV adenosine which helps her symptoms she does think that she has potentially dehydrated she has not drink very much today. She also has a history of lymphoma. She had some blood drawn today after appointment with her oncologist. She is not undergoing chemotherapy the moment Related Data Home Medications Medication Instructions Recorded Confirmed Probiotic 1 cap PO DAILY #0 07/04/12 09/22/19 coQ10 (ubiquinol) 250 mg PO DAILY #0 07/04/12 12/08/19 multivitamin 1 tab PO DAILY #0 07/04/12 12/08/19 Protandim 1 dose PO DAILY 05/15/18 09/22/19 Vitamin D Liquid 1 dose TOPICAL DAILY 05/15/18 12/08/19 Vadim Stress 1 tab DAILY 08/25/18 12/08/19 ascorbic acid (vitamin C) [Vitamin 1,000 mg PO DAILY 08/25/18 12/08/19 C] turmeric (bulk) [Curcumin] 1 % DAILY 08/25/18 12/08/19 Previous Rx's Medication Instructions Recorded mupirocin 2 % topical ointment 1 applic TOP BID #30 gram 08/11/18 diltiazem HCl 180 mg 180 mg PO QPM #90 cap 06/26/19 capsule,extended release 24 hr Allergies Allergy/AdvReac Type Severity Reaction Status Date / Time NSAIDS (Non-Steroidal Allergy Intermediate HIVES Verified 09/08/19 11:24 Anti-Inflamma [NSAIDS (NON-STEROIDAL ANTI-INFLAMMA] amoxicillin [AMOXICILLIN] Allergy Mild rash Verified 09/08/19 11:24 Review of Systems Constitutional Constitutional: Denies fatigue, Denies fever(s), Denies frequent falls and Denies headache(s) ENT Ears, Nose, Mouth, and Throat: Denies headache(s) Cardiovascular Cardiovascular: Denies chest pain, Reports rapid heart rate, Denies irregular heart rhythm, Denies lightheadedness and Denies dyspnea Respiratory Respiratory: Denies cough and Denies dyspnea Gastrointestinal Gastrointestinal: Denies abdominal pain, Denies nausea and Denies vomiting Genitourinary Genitourinary: Denies dysuria Genitourinary: Denies dysuria Musculoskeletal Musculoskeletal: Denies arthralgias and Denies myalgias Integumentary/Breasts Skin/Breast: Denies rash Neurologic Neurologic: Denies behavioral changes, Denies frequent falls and Denies headache(s) Psychiatric Psychiatric: Denies behavioral changes Endocrine Endocrine: Denies fatigue Hematologic/Lymphatic Hematologic/Lymphatic: Denies easy bleeding and Denies easy bruising Allergic/Immunologic Allergic/Immunologic: Denies urticaria Patient History Medical History Follicular non-Hodgkin's lymphoma (Resolved) SVT (supraventricular tachycardia) (Chronic) Surgical History (Updated 11/10/18 @ 17:56 by Jackie Gongora MD) History of removal of Port-a-Cath (Acute) Social History household members: family Smoking Status: Former smoker alcohol intake: never substance use type: does not use Smoking Status: Former smoker alcohol intake frequency: 0-2 drinks per day Substance Use Type: does not use Exam Initial Vital Signs Initial Vital Signs: Vital Signs Pulse Rate 216 H 01/06/20 20:05 Respiratory Rate 20 01/06/20 20:05 Blood Pressure 125/74 01/06/20 20:05 Pulse Oximetry 99 01/06/20 20:05 Const General: cooperative, comfortable and well developed Limitations: mental status not altered [facility] Head: normal to inspection and normocephalic Eyes General: appearance normal, both eyes and all related structures Neck Neck: normal visual inspection Resp Effort & Inspection: normal respiratory effort Auscultation: clear to auscultation bilaterally Cardio Rate: tachycardic Rhythm: regular rhythm Pulses: radial pulses present GI Inspection: non-distended Skin Lesions: no lesions Rashes: no rashes Neuro General: patient alert, patient awake and patient oriented x3 Cognition: normal cognition Speech: speech normal Extrem General: normal to inspection and capillary refill normal Psych Appearance: grossly normal and well kempt Scores GCS [place] coma scale eye opening: Spontaneous [place] coma scale verbal response: Orientated [place] coma scale motor response: Obey commands [place] coma scale total score: 15 Course Orders Ordered: ED Orders 01/06/20 20:04 EKG-12 Lead Stat 01/06/20 20:30 EKG-12 Lead Stat Sodium Chloride (Normal Saline 0.9%) 1,000 mls @ 500 mls/hr IV BOLUS ONE Stop: 01/06/20 22:17 Last Admin: 01/06/20 20:18 Dose: 500 mls/hr Documented by: NYA Discontinued Medications Adenosine (Adenocard) 6 mg IV NOW ONE Stop: 01/06/20 20:13 Last Admin: 01/06/20 20:22 Dose: Not Given Documented by: NYA Adenosine (Adenocard) 12 mg IV NOW ONE Stop: 01/06/20 20:16 Last Admin: 01/06/20 20:19 Dose: 12 mg Documented by: NYA Vital Signs Vital signs: Vital Signs - 8 hr 01/06/20 20:05 01/06/20 20:14 01/06/20 20:15 Pulse Rate 216 H 210 H 211 H Respiratory Rate 20 20 23 Blood Pressure 125/74 119/69 Pulse Oximetry 99 99 99 01/06/20 20:19 01/06/20 20:20 01/06/20 20:21 Pulse Rate 211 H 133 H 122 H Respiratory Rate 14 14 27 H Blood Pressure 113/73 143/78 H 134/70 Pulse Oximetry 99 99 98 01/06/20 20:25 01/06/20 20:30 01/06/20 20:35 Pulse Rate 107 H 108 H 109 H Respiratory Rate 13 16 18 Blood Pressure 114/72 130/74 111/67 Pulse Oximetry 96 97 98 01/06/20 20:40 01/06/20 20:45 01/06/20 20:50 Pulse Rate 112 H 110 H 108 H Respiratory Rate 24 23 14 Blood Pressure 133/77 122/75 120/72 Pulse Oximetry 99 99 100 01/06/20 20:55 01/06/20 21:00 Pulse Rate 109 H 110 H Respiratory Rate 13 21 Blood Pressure 119/70 112/66 Pulse Oximetry 100 100 MDM - Arrhythmia/Palpitations ECG Data Attestation: I personally reviewed and interpreted this ECG as follows: Interpretation: Initial EKG Sinus tachycardia Ventricular rate of 213 Normal QRS Normal QTC ST depressions laterally A repeat EKG Sinus tachycardia Ventricular rate of 107 Normal axis Normal QRS Normal QTC No ST T wave changes [facility] Narrative Medical decision making narrative: Patient was tachycardic into the low 200s however had no blood pressure issues. She was asymptomatic other than feeling like her heart was beating fast. She was initially given 6 mg of adenosine which slowed her heart rate but only for few seconds. Then return to the low 200s. She was then given 12 mg of adenosine which brought her heart rate down into the 120s and then after observation the emergency department heart rate slowly decreased to the low 100s and even below 100. At the time of discharge patient was tolerating oral intake. Was ambulating without problems. Heart rate consistently below 105. Will discharge patient home with strict return precautions. She expressed understanding Discharge Plan Departure Patient Disposition: Home Clinical Impression: SVT (supraventricular tachycardia) Instructions: DI for Paroxysmal Supraventricular Tachycardia Activity Restrictions/Additional Instructions: Continue all of your medications as directed. Contact your primary provider for follow-up. Return to the emergency department for any new or worsening symptoms Prescriptions: No Action mupirocin 2 % ointment 1 applic TOP BID Qty: 30 RF: 0 multivitamin Tablet 1 tab PO DAILY Qty: 0 RF: 0 Probiotic capsule 1 cap PO DAILY Qty: 0 RF: 0 coQ10 (ubiquinol) capsule 250 mg PO DAILY Qty: 0 RF: 0 diltiazem HCl [Cartia XT] 180 mg capsule,extended release 24hr 180 mg PO QPM Qty: 90 RF: 3 Curcumin 95 % Powder 1 % DAILY RF: 0 ascorbic acid (vitamin C) [Vitamin C] 500 mg Tablet Extended Release 1,000 mg PO DAILY RF: 0 Vadim Stress 1 tab DAILY RF: 0 Protandim 1 dose PO DAILY RF: 0 Vitamin D Liquid 1 dose topical DAILY RF: 0 Referrals: Mingo Jones MD [Primary Care Provider] -
[2020-01-06] MEDS: ADENOSINE 6 MG/2 ML VIAL IV (20:14)
[2020-01-06] MEDS: SODIUM CHLORIDE 0.9% 1,000 ML 500 ML IV (20:18)
[2020-01-06] MEDS: ADENOSINE 6 MG/2 ML VIAL 12 MG IV (20:19)
== END 2020-01-06 21:43 | disposition home or self-care (01) ==
PROVIDERS: Emergency Provider Emergency Medicine; Family Provider Internal Medicine Hematology & Oncology; PCP Student in an Organized Health Care Education/Training Program
DX: I47.1 Supraventricular tachycardia (principal); C81.98 Hodgkin lymphoma, unspecified, lymph nodes of multiple sites
CPT/HCPCS: 36415; 36591; 80053; 83615; 85025; 85651; 93005; 96361; 96374; 99215; 99284; J0153

== ENCOUNTER 2020-01-21 14:24 | Emergency (ER) | payer MEDICARE, OTHER, SELFPAY ==
[2020-01-21 14:30] VITALS: BP 138/65; PULSE 97; RESP 15; TEMP 37.4; O2SAT 96; BMI 19.7
--- NOTE | 2020-01-21 15:16 | ED_ITS ---
HPI - General Adult General Chief complaint: Fever Stated complaint: reaction to Ketruda Time Seen by Provider: 01/21/20 15:00 Source: patient Mode of arrival: Ambulatory Limitations: no limitations History of Present Illness HPI narrative: This is a 74-year-old female who comes to the emergency department after developing nausea, vomiting and feeling unwell several hours after a Ketruda infusion at the cancer center. This was the patient's 1st dose of medication for her lymphoma. She also has a history of SVT. She states she has had some lightheadedness intermittently although has not typically been severe. She has occasionally had some mild nausea but no vomiting and not to the extent today. She did feel little bit sweaty. She denies any chest pain or new shortness of breath. She denies any other urinary symptoms. She did not have any rashes, swelling or other new skin changes. Related Data Home Medications Medication Instructions Recorded Confirmed Probiotic 1 cap PO DAILY #0 07/04/12 09/22/19 coQ10 (ubiquinol) 250 mg PO DAILY #0 07/04/12 12/08/19 multivitamin 1 tab PO DAILY #0 07/04/12 12/08/19 Protandim 1 dose PO DAILY 05/15/18 09/22/19 Vitamin D Liquid 1 dose TOPICAL DAILY 05/15/18 12/08/19 Vadim Stress 1 tab DAILY 08/25/18 12/08/19 ascorbic acid (vitamin C) [Vitamin 1,000 mg PO DAILY 08/25/18 12/08/19 C] turmeric (bulk) [Curcumin] 1 % DAILY 08/25/18 12/08/19 Previous Rx's Medication Instructions Recorded mupirocin 2 % topical ointment 1 applic TOP BID #30 gram 08/11/18 diltiazem HCl 180 mg 180 mg PO QPM #90 cap 06/26/19 capsule,extended release 24 hr Allergies Allergy/AdvReac Type Severity Reaction Status Date / Time NSAIDS (Non-Steroidal Allergy Intermediate HIVES Verified 01/21/20 14:37 Anti-Inflamma [NSAIDS (NON-STEROIDAL ANTI-INFLAMMA] amoxicillin [AMOXICILLIN] Allergy Mild rash Verified 01/21/20 14:37 aspirin Allergy Verified 01/21/20 14:37 Review of Systems Review of Systems ROS Unobtainable: All systems reviewed & are unremarkable except as noted in HPI and below Patient History Medical History Follicular non-Hodgkin's lymphoma (Resolved) SVT (supraventricular tachycardia) (Chronic) Surgical History History of removal of Port-a-Cath (Acute) Social History household members: family Smoking Status: Former smoker alcohol intake: never substance use type: does not use Smoking Status: Former smoker alcohol intake frequency: holidays/special occasions only Substance Use Type: does not use Exam Narrative Exam Narrative: GEN: Thin female, alert and oriented x 3, patient appears to be in mild distress. HEENT: Atraumatic, pupils are equal round reactive to light, extraocular movements are intact, nares are clear. Throat is clear without any exudates, erythema, tonsillar enlargement or uvular deviation, no oropharyngeal swelling. HEART: Regular rate and rhythm without murmur, clicks, rubs. No carotid bruits, pulses are equal in upper and lower extremities LUNGS:Lungs clear to auscultation, no wheezes, rales, crackles, chest moves symmetrically, no tachypnea accessory muscle use. ABD:bowel sounds normal, soft, non-tender, no guarding, rebound, rigidity, no masses noted, no hepatosplenomegaly MSCL: Non-tender, no muscle atrophy, muscles strength 5/5 upper and lower extremities, full range of motion, patient also has enlarged lymph nodes bilateral upper extremities. NEURO:CN 2-12 intact, sensation normal SKIN: Patient has multiple areas of ulceration on her neck with scabbing, there is no erythema or drainage appreciated the areas are nontender to light palpation. Initial Vital Signs Initial Vital Signs: Vital Signs Temperature 99.3 F 01/21/20 14:30 Pulse Rate 97 H 01/21/20 14:30 Respiratory Rate 15 01/21/20 14:30 Blood Pressure 138/65 01/21/20 14:30 Pulse Oximetry 96 01/21/20 14:30 Course Orders Ordered: ED Orders 01/21/20 16:42 Basic Metabolic Panel Stat Complete Blood Count AUTO DIFF Stat Discontinued Medications Sodium Chloride (Normal Saline 0.9%) 1,000 mls @ 1,000 mls/hr IV BOLUS ONE Stop: 01/21/20 16:56 Last Infusion: 01/21/20 17:39 Dose: 0 mls/hr Documented by: Admin: 01/21/20 16:40 Dose: 1,000 mls/hr Documented by: CELIO Reevaluation(s) Reevaluation #1: Patient is feeling much better and tolerating orals. Patient labs reviewed with herself. Time: 18:21 Vital Signs Vital signs: Vital Signs - 8 hr 01/21/20 14:30 01/21/20 17:31 Temperature 99.3 F Pulse Rate 97 H 88 Respiratory Rate 15 18 Blood Pressure 138/65 123/59 L Pulse Oximetry 96 97 Medical Decision Making Lab Data Result diagrams: 01/21/20 16:42 01/21/20 16:42 Labs: Lab Results 01/21/20 01/21/20 Range/Units 16:42 16:42 WBC 5.7 (4.5-11.0) X10^3/uL RBC 3.77 L (4.0-5.2) X10^6/uL Hgb 11.1 L (12.0-16.0) g/dL Hct 34.1 L (36-46) % MCV 90.3 (80-100) fL MCH 29.5 (26-34) PG MCHC 32.7 (30-36) % RDW 13.6 (11.6-14.8) % Plt Count 146 L (150-400) X10^3/uL Neut % (Auto) 75.7 H (50-75) % Lymph % (Auto) 12.6 L (25-40) % [place] % (Auto) 11.0 (3-14) % Eos % (Auto) 0.4 L (2-4) % Baso % (Auto) 0.3 (0-2) % Neut # (Auto) 4300 (4525-3294) /uL Lymph # (Auto) 700 L (1943-2117) /uL [place] # (Auto) 600 (0-900) /uL Eos # (Auto) 0 (0-450) /uL Baso # (Auto) 0 (0-100) /uL Sodium 135 L (137-145) mmol/L Potassium 3.5 (3.4-5.1) mmol/L Chloride 101 (98-107) mmol/L Carbon Dioxide 31 (22-32) mmol/L BUN 13 (7-17) mg/dL Creatinine 0.54 (0.52-1.04) mg/dL Estimated GFR > 60.0 (>60) mL/min BUN/Creatinine Ratio 24.1 H (6-22) Glucose 131 H (80-110) mg/dL Calcium 8.5 (8.4-10.2) mg/dL MDM Narrative Medical decision making narrative: ED was contacted by the Oncology Clinic, the symptoms she is describing are known side effects from the Ketruda. She does not appear to be having an anaphylactic reaction. Plan to repeat labs, fluids and oral challenge and monitor patient in ED. Discharge Plan Departure Patient Disposition: Home Clinical Impression: Medication reaction Activity Restrictions/Additional Instructions: Follow-up with your physician in the next several days for recheck. You may continue to take your Zofran as needed. Return to the ER for any new or worsening symptoms, persistent vomiting, recurrent fevers, passing out, new chest pain, shortness of breath, swelling of her lips, mouth or oropharynx swelling of her extremities, new rashes or skin changes or other new or concerning symptoms. Prescriptions: No Action mupirocin 2 % ointment 1 applic TOP BID Qty: 30 RF: 0 multivitamin Tablet 1 tab PO DAILY Qty: 0 RF: 0 Probiotic capsule 1 cap PO DAILY Qty: 0 RF: 0 coQ10 (ubiquinol) capsule 250 mg PO DAILY Qty: 0 RF: 0 diltiazem HCl [Cartia XT] 180 mg capsule,extended release 24hr 180 mg PO QPM Qty: 90 RF: 3 Curcumin 95 % Powder 1 % DAILY RF: 0 ascorbic acid (vitamin C) [Vitamin C] 500 mg Tablet Extended Release 1,000 mg PO DAILY RF: 0 Vadim Stress 1 tab DAILY RF: 0 Protandim 1 dose PO DAILY RF: 0 Vitamin D Liquid 1 dose topical DAILY RF: 0 Referrals: Mingo Jones MD [Primary Care Provider] -
[2020-01-21] MEDS: SODIUM CHLORIDE 0.9% 1,000 ML 1000 ML IV (16:40)
[2020-01-21 17:02] LABS: Add Manual Diff / Slide Review NO; BUN Creatinine Ratio 24.1 (6-22); Basophils Absolute Auto 0 /uL (0-100); Basophils Percent Auto 0.3 % (0-2); Blood Urea Nitrogen 13 mg/dL (7-17); Calcium 8.5 mg/dL (8.4-10.2); Carbon Dioxide 31 mmol/L (22-32); Chloride 101 mmol/L (98-107); Eosinophils Absolute Auto 0 /uL (0-450); Eosinophils Percent Auto 0.4 % (2-4); Estimated Glomerular Filt Rate > 60.0 mL/min (>60); Glucose 131 mg/dL (80-110); HEMOLYSIS < 15 (0-50); Hematocrit 34.1 % (36-46); Hemoglobin 11.1 g/dL (12.0-16.0); Lymphocytes Absolute Auto 700 /uL (1100-4500); Lymphocytes Percent Auto 12.6 % (25-40); Mean Corpuscular HGB Conc 32.7 % (30-36); Mean Corpuscular Hemoglobin 29.5 PG (26-34); Mean Corpuscular Volume 90.3 fL (80-100); Monocytes Absolute Auto 600 /uL (0-900); Neutrophils Absolute Auto 4300 /uL (1500-7000); Neutrophils Percent Auto 75.7 % (50-75); Platelet Count 146 X10^3/uL (150-400); Potassium 3.5 mmol/L (3.4-5.1); Red Blood Cell Count 3.77 X10^6/uL (4.0-5.2); Red Cell Distribution Width 13.6 % (11.6-14.8); Sodium 135 mmol/L (137-145); White Blood Cell Count 5.7 X10^3/uL (4.5-11.0)
[2020-01-21 17:31] VITALS: BP 123/59; PULSE 88; RESP 18; O2SAT 97
[2020-01-21 18:29] VITALS: BP 123/66; PULSE 88; RESP 16; TEMP 37.9; O2SAT 95
== END 2020-01-21 18:30 | disposition home or self-care (01) ==
PROVIDERS: Emergency Provider Emergency Medicine; Family Provider Internal Medicine Hematology & Oncology; PCP Student in an Organized Health Care Education/Training Program
DX: Z51.12 Encounter for antineoplastic immunotherapy (principal); T50.995A Adverse effect of other drugs, medicaments and biological substances, initial encounter; R50.9 Fever, unspecified; R11.2 Nausea with vomiting, unspecified; C81.98 Hodgkin lymphoma, unspecified, lymph nodes of multiple sites
CPT/HCPCS: 36415; 36591; 80048; 80053; 82533; 84439; 84443; 85025; 96360; 96413; 99284; J9271

== ENCOUNTER 2020-01-30 19:41 | Emergency (ER) | payer MEDICARE, OTHER, SELFPAY ==
[2020-01-30] VITALS (9 sets, daily range): BP systolic 104–160; BP diastolic 54–84; PULSE 112–211; RESP 12–38; TEMP 37.7–38.4; O2SAT 93–100; BMI 19.7
[2020-01-30] MEDS: dilTIAZem 5 MG/ML SDV 10 MG IV (19:55)
[2020-01-30] MEDS: ADENOSINE 6 MG/2 ML VIAL IV (20:10)
[2020-01-30] MEDS: SODIUM CHLORIDE 0.9% 500 ML 1000 ML IV (20:27)
[2020-01-30] MEDS: ACETAMINOPHEN 325 MG TABLET 650 MG PO (20:28)
[2020-01-30] MEDS: SODIUM CHLORIDE 0.9% 1,000 ML 150 ML IV (21:05)
--- NOTE | 2020-01-30 22:13 | ED_ITS ---
HPI - Arrhythmia/Palpitations General Chief Complaint: Arrhythmia/Palpitations Stated Complaint: SVT Time Seen by Provider: 01/30/20 19:42 Source: patient Mode of arrival: Ambulatory Limitations: no limitations History of Present Illness HPI narrative: 74F former smoker with follicular lymphoma and SVT presents with the chief complaint of a rapid heart rate over the course of the afternoon. She states that she has a history of SVT and this feels the same. She denies chest pain or shortness of breath. She is not dizzy nor weak or lightheaded. She states that she did not yet take her Cardizem this evening. She has been to the emergency department on numerous occasions and states typically requires the 2nd dose of adenosine to work. 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 She denies runny nose, sorethroat or other. Related Data Home Medications Medication Instructions Recorded Confirmed Probiotic 1 cap PO DAILY #0 07/04/12 01/26/20 coQ10 (ubiquinol) 250 mg PO DAILY #0 07/04/12 01/26/20 multivitamin 1 tab PO DAILY #0 07/04/12 01/26/20 Protandim 1 dose PO DAILY 05/15/18 01/26/20 Vitamin D Liquid 1 dose TOPICAL DAILY 05/15/18 01/26/20 Vadim Stress 1 tab DAILY 08/25/18 01/26/20 ascorbic acid (vitamin C) [Vitamin 1,000 mg PO DAILY 08/25/18 01/26/20 C] turmeric (bulk) [Curcumin] 1 % DAILY 08/25/18 01/26/20 Previous Rx's Medication Instructions Recorded mupirocin 2 % topical ointment 1 applic TOP BID #30 gram 08/11/18 diltiazem HCl 180 mg 180 mg PO QPM #90 cap 06/26/19 capsule,extended release 24 hr Allergies Allergy/AdvReac Type Severity Reaction Status Date / Time NSAIDS (Non-Steroidal Allergy Intermediate HIVES Verified 01/21/20 14:37 Anti-Inflamma [NSAIDS (NON-STEROIDAL ANTI-INFLAMMA] amoxicillin [AMOXICILLIN] Allergy Mild rash Verified 01/21/20 14:37 aspirin Allergy Verified 01/21/20 14:37 Review of Systems Constitutional Constitutional: Denies chills, Denies fatigue, Denies fever(s), Denies frequent falls, Denies lethargy and Denies weakness Eyes Eyes: Denies change in vision, Denies eye discharge, Denies irritation and Denies loss of vision ENT Ears, Nose, Mouth, and Throat: Denies change in voice, Denies dizziness, Denies neck pain, Denies sore throat and Denies throat swelling Cardiovascular Cardiovascular: Denies chest pain, Denies irregular heart rhythm, Denies lightheadedness, Reports palpitations, Denies dyspnea, Denies dyspnea on exertion and Denies orthopnea Respiratory Respiratory: Denies cough, Denies dyspnea, Denies dyspnea on exertion and Denies wheezing Gastrointestinal Gastrointestinal: Denies abdominal pain, Denies change in bowel habits, Denies diarrhea, Denies nausea and Denies vomiting Musculoskeletal Musculoskeletal: Denies neck pain and Denies numbness Integumentary/Breasts Skin/Breast: Denies pruritus, Denies erythema, Denies rash and Denies wounds Neurologic Neurologic: Denies behavioral changes, Denies confusion, Denies dizziness, Denies frequent falls, Denies loss of vision, Denies numbness and Denies weakness Psychiatric Psychiatric: Denies anxiety, Denies behavioral changes, Denies confusion, Denies depression, Denies homicidal ideation and Denies suicidal ideation Endocrine Endocrine: Denies fatigue, Denies flushing and Reports palpitations Hematologic/Lymphatic Hematologic/Lymphatic: Denies easy bruising Allergic/Immunologic Allergic/Immunologic: Denies urticaria, Denies throat swelling and Denies wheezing Patient History Medical History Follicular non-Hodgkin's lymphoma (Resolved) SVT (supraventricular tachycardia) (Chronic) Surgical History History of removal of Port-a-Cath (Acute) Social History household members: family Smoking Status: Former smoker alcohol intake: never substance use type: does not use Smoking Status: Former smoker alcohol intake frequency: holidays/special occasions only Substance Use Type: does not use Exam Narrative Exam Narrative: GENERAL: [74] year old patient appears stated age. Well-karley shed, well-developed patient, in mild distress. Very pleasant HEAD: Atraumatic. Normocephalic. EYES: Pupils equal round and reactive. Extraocular motions intact. No scleral icterus. No injection or drainage. ENT: Nose without bleeding, purulent drainage. Throat without erythema, tonsillar hypertrophy or exudate. Airway patent. NECK: Trachea midline. Non tender CARDIOVASCULAR: Rapid and regular rhythm without murmurs, gallops, or rubs. RESPIRATORY: Clear to auscultation. Breath sounds equal bilaterally. No wheezes, rales, or rhonchi. GASTROINTESTINAL: Abdomen soft, non-tender, nondistended. EXTREMITIES: No edema or joint tenderness. BACK: Nontender without deformity or crepitance. No flank tenderness. NEURO: AOx3. SKIN: Multiple cutaneous lesions widespread, consistent with her lymphoma No rash or erythema of visible areas Initial Vital Signs Initial Vital Signs: Vital Signs Temperature 101.1 F H 01/30/20 19:50 Pulse Rate 211 H 01/30/20 19:50 Respiratory Rate 19 01/30/20 19:50 Blood Pressure 160/77 H 01/30/20 19:50 Pulse Oximetry 93 01/30/20 19:50 Course Course Course Narrative: patient given Cardizem 10mg IVP and had no improvement. She was then given Adenosine 6mg IVP and had a brief pause followed by conversion to sinus tachycardia at 130 which slowed to 105 on DC. Her initial mild symptoms completely resolved after the above stated therapies Orders Ordered: ED Orders 01/30/20 19:53 EKG-12 Lead Stat Discontinued Medications Acetaminophen (Tylenol) 650 mg PO NOW ONE Stop: 01/30/20 20:28 Last Admin: 01/30/20 20:28 Dose: 650 mg Documented by: ONELIA Adenosine (Adenocard) 6 mg IV NOW ONE Stop: 01/30/20 20:05 Last Admin: 01/30/20 20:10 Dose: 6 mg Documented by: ONELIA Diltiazem HCl (Cardizem) 10 mg IV NOW ONE Stop: 01/30/20 19:54 Last Admin: 01/30/20 19:55 Dose: 10 mg Documented by: ONELIA Sodium Chloride (Normal Saline 0.9%) 500 mls @ 1,000 mls/hr IV BOLUS ONE Stop: 01/30/20 20:54 Last Infusion: 01/30/20 21:04 Dose: 0 mls/hr Documented by: Admin: 01/30/20 20:27 Dose: 1,000 mls/hr Documented by: ONELIA Sodium Chloride (Normal Saline 0.9%) 1,000 mls @ 150 mls/hr IV CONT SWAPNA Last Infusion: 01/30/20 22:47 Dose: 0 mls/hr Documented by: Admin: 01/30/20 21:05 Dose: 150 mls/hr Documented by: ONELIA Vital Signs Vital signs: Vital Signs - 8 hr 01/30/20 19:50 01/30/20 19:55 01/30/20 19:56 Temperature 101.1 F H Pulse Rate 211 H 205 H 205 H Respiratory Rate 19 22 Blood Pressure 160/77 H 160/77 H Pulse Oximetry 93 99 01/30/20 20:00 01/30/20 20:15 01/30/20 20:30 Temperature Pulse Rate 184 H 194 H 124 H Respiratory Rate 12 21 38 H Blood Pressure 127/55 L 106/84 Pulse Oximetry 98 97 01/30/20 20:45 01/30/20 20:52 01/30/20 22:22 Temperature 101.0 F H 99.9 F H Pulse Rate 115 H 112 H Respiratory Rate 23 18 Blood Pressure 104/54 L Pulse Oximetry 100 Discharge Plan Departure Patient Disposition: Home Clinical Impression: SVT (supraventricular tachycardia) Discharge Date/Time: 01/30/20 22:24 Instructions: DI for Paroxysmal Supraventricular Tachycardia Activity Restrictions/Additional Instructions: *You have been diagnosed with [SVT ] *What to do: *Take medications as directed including your night dose of Cardizem *Follow up with your primary care provider in 2-3 days, call for an appointment. Let them know you were seen in the Emergency Department and that we ask that you be seen in follow up *Return to ER if you should have any new, worsening or concerning symptoms Prescriptions: No Action mupirocin 2 % ointment 1 applic TOP BID Qty: 30 RF: 0 multivitamin Tablet 1 tab PO DAILY Qty: 0 RF: 0 Probiotic capsule 1 cap PO DAILY Qty: 0 RF: 0 coQ10 (ubiquinol) capsule 250 mg PO DAILY Qty: 0 RF: 0 diltiazem HCl [Cartia XT] 180 mg capsule,extended release 24hr 180 mg PO QPM Qty: 90 RF: 3 Curcumin 95 % Powder 1 % DAILY RF: 0 ascorbic acid (vitamin C) [Vitamin C] 500 mg Tablet Extended Release 1,000 mg PO DAILY RF: 0 Vadim Stress 1 tab DAILY RF: 0 Protandim 1 dose PO DAILY RF: 0 Vitamin D Liquid 1 dose topical DAILY RF: 0 Referrals: Mingo Jones MD [Primary Care Provider] -
== END 2020-01-30 22:24 | disposition home or self-care (01) ==
PROVIDERS: Emergency Provider Emergency Medicine; Family Provider Internal Medicine Hematology & Oncology; PCP Student in an Organized Health Care Education/Training Program
DX: I47.2 Ventricular tachycardia (principal)
CPT/HCPCS: 36415; 93005; 96361; 96374; 96375; 99284; J0153

== ENCOUNTER 2020-02-02 13:11 | Emergency (ER) | payer MEDICARE, OTHER, SELFPAY ==
[2020-02-02] VITALS (7 sets, daily range): BP systolic 111–148; BP diastolic 55–76; PULSE 103–204; RESP 13–22; TEMP 36.9–37.7; O2SAT 97–99; BMI 19.7
--- NOTE | 2020-02-02 13:19 | ED.GENADULT ---
HPI - General Adult General Chief complaint: Arrhythmia/Palpitations Stated complaint: svt Time Seen by Provider: 02/02/20 13:18 Source: patient Mode of arrival: Ambulatory Limitations: no limitations History of Present Illness HPI narrative: Patient is a 74-year-old female with a known history of paroxysmal supraventricular tachycardia. She is on diltiazem 180 mg extended release every day. She states she takes this in the evening. She did take it last evening. She was seen here a couple days ago for the same symptoms and brought her in today. She states that she feels like her heart is racing and somewhat lightheaded. No chest pain or shortness of breath. She did not take any extra doses of her medicines. She did drink some coffee this morning which she thinks caused her symptoms. Related Data Home Medications Medication Instructions Recorded Confirmed Probiotic 1 cap PO DAILY #0 07/04/12 01/26/20 coQ10 (ubiquinol) 250 mg PO DAILY #0 07/04/12 01/26/20 multivitamin 1 tab PO DAILY #0 07/04/12 01/26/20 Protandim 1 dose PO DAILY 05/15/18 01/26/20 Vitamin D Liquid 1 dose TOPICAL DAILY 05/15/18 01/26/20 Vadim Stress 1 tab DAILY 08/25/18 01/26/20 ascorbic acid (vitamin C) [Vitamin 1,000 mg PO DAILY 08/25/18 01/26/20 C] turmeric (bulk) [Curcumin] 1 % DAILY 08/25/18 01/26/20 Previous Rx's Medication Instructions Recorded mupirocin 2 % topical ointment 1 applic TOP BID #30 gram 08/11/18 diltiazem HCl 180 mg 180 mg PO QPM #90 cap 06/26/19 capsule,extended release 24 hr Allergies Allergy/AdvReac Type Severity Reaction Status Date / Time NSAIDS (Non-Steroidal Allergy Intermediate HIVES Verified 01/21/20 14:37 Anti-Inflamma [NSAIDS (NON-STEROIDAL ANTI-INFLAMMA] amoxicillin [AMOXICILLIN] Allergy Mild rash Verified 01/21/20 14:37 aspirin Allergy Verified 01/21/20 14:37 Review of Systems Constitutional Constitutional: Denies fatigue and Denies headache(s) Eyes Eyes: Denies change in vision ENT Ears, Nose, Mouth, and Throat: Reports dizziness, Denies headache(s), Denies disequilibrium and Denies sore throat Cardiovascular Cardiovascular: Denies chest pain, Denies syncope, Reports rapid heart rate and Denies dyspnea Respiratory Respiratory: Denies dyspnea Gastrointestinal Gastrointestinal: Denies abdominal pain, Denies nausea and Denies vomiting Genitourinary Genitourinary: Denies dysuria Genitourinary: Denies dysuria Musculoskeletal Musculoskeletal: Denies tingling Integumentary/Breasts Skin/Breast: Denies rash Neurologic Neurologic: Denies confusion, Reports dizziness, Denies syncope, Denies headache(s), Denies tingling and Denies disequilibrium Psychiatric Psychiatric: Denies confusion Endocrine Endocrine: Denies fatigue Hematologic/Lymphatic Hematologic/Lymphatic: Denies easy bleeding and Denies easy bruising Patient History Medical History Follicular non-Hodgkin's lymphoma (Resolved) SVT (supraventricular tachycardia) (Chronic) Surgical History History of removal of Port-a-Cath (Acute) Social History household members: family Smoking Status: Former smoker alcohol intake: never substance use type: does not use Smoking Status: Former smoker alcohol intake frequency: holidays/special occasions only Substance Use Type: does not use Exam Initial Vital Signs Initial Vital Signs: Vital Signs Pulse Rate 175 H 02/02/20 13:17 Respiratory Rate 20 02/02/20 13:17 Blood Pressure 112/76 02/02/20 13:17 Pulse Oximetry 97 02/02/20 13:17 Const General: cooperative, comfortable and well developed Limitations: mental status not altered [facility] Head: normal to inspection and normocephalic Resp Effort & Inspection: normal respiratory effort Auscultation: clear to auscultation bilaterally Cardio Rate: tachycardic Rhythm: regular rhythm Skin Other: Multiple lesions are faced in chest and upper arms which she states are caused by her lymphoma Neuro General: patient alert, patient awake and patient oriented x3 Cognition: normal cognition Speech: speech normal Extrem General: capillary refill normal and No edema Psych Appearance: grossly normal and well kempt Course Orders Ordered: ED Orders 02/02/20 13:19 EKG-12 Lead Stat Vital Signs Vital signs: Vital Signs - 8 hr 02/02/20 13:17 02/02/20 13:25 02/02/20 13:27 Temperature 98.4 F Pulse Rate 175 H 126 H 204 H Respiratory Rate 20 13 16 Blood Pressure 112/76 148/68 H 112/76 Pulse Oximetry 97 99 97 02/02/20 13:28 02/02/20 13:30 02/02/20 13:33 Temperature 99.8 F H Pulse Rate 108 H 104 H 103 H Respiratory Rate 21 16 16 Blood Pressure 147/65 H 130/62 Pulse Oximetry 97 98 99 02/02/20 14:00 Temperature Pulse Rate 104 H Respiratory Rate 22 Blood Pressure 111/55 L Pulse Oximetry 98 Medical Decision Making ECG Data Attestation: I personally reviewed and interpreted this ECG as follows: Prior ECG tracings: available for review Interpretation: Sinus tachycardia Ventricular rate of 199 Normal axis Narrow QRS MDM Narrative Medical decision making narrative: Patient is in SVT. She is not hypotensive. Not altered. Having some lightheadedness. Patient was given 12 mg of adenosine which decreased her heart rate to 120s which slowly decreased to just over 100 at the time of discharge. Patient states she felt much better afterwards. I started with 12 mg of adenosine because patient states that is what has taken in the past in order to convert her. Patient was stable after observation emergency department after the procedure. She was instructed to contact her membership sales manager this afternoon for follow-up. She is given return precautions. She expressed understanding and agreement. Critical Care Time Critical Care Time Critical Care Time: Yes Total Critical Care Time: 40 Attestation: The high probability of a clinically significant, sudden or life threatening deterioration of the cardiovascular system(s) required my full and direct attention, intervention and personal management. The aggregate critical care time was [40] minutes. This time is in addition to time spent performing reported procedures but includes the following: [X] Data Review and interpretation [X] Patient assessment and monitoring of vital signs [X] Documentation [X] Medication orders and management Discharge Plan Departure Patient Disposition: Home Clinical Impression: SVT (supraventricular tachycardia) Instructions: DI for Paroxysmal Supraventricular Tachycardia Activity Restrictions/Additional Instructions: Recommend you continue all of your medications as directed. I also recommend that you contact your membership sales manager office to discuss potentially changing your medications. Return to the emergency department for any new or worsening symptoms Prescriptions: No Action mupirocin 2 % ointment 1 applic TOP BID Qty: 30 RF: 0 multivitamin Tablet 1 tab PO DAILY Qty: 0 RF: 0 Probiotic capsule 1 cap PO DAILY Qty: 0 RF: 0 coQ10 (ubiquinol) capsule 250 mg PO DAILY Qty: 0 RF: 0 diltiazem HCl [Cartia XT] 180 mg capsule,extended release 24hr 180 mg PO QPM Qty: 90 RF: 3 Curcumin 95 % Powder 1 % DAILY RF: 0 ascorbic acid (vitamin C) [Vitamin C] 500 mg Tablet Extended Release 1,000 mg PO DAILY RF: 0 Vadim Stress 1 tab DAILY RF: 0 Protandim 1 dose PO DAILY RF: 0 Vitamin D Liquid 1 dose topical DAILY RF: 0 Referrals: Mingo Jones MD [Primary Care Provider] -
[2020-02-02] MEDS: ADENOSINE 6 MG/2 ML VIAL 18 MG IV (13:24)
== END 2020-02-02 14:31 | disposition home or self-care (01) ==
PROVIDERS: Emergency Provider Emergency Medicine; Family Provider Internal Medicine Hematology & Oncology; PCP Student in an Organized Health Care Education/Training Program
DX: I47.2 Ventricular tachycardia (principal); R42 Dizziness and giddiness
CPT/HCPCS: 36415; 93005; 96374; 99284; 99291; J0153

== ENCOUNTER 2020-02-22 09:30 | Emergency (ER) | payer MEDICARE, OTHER, SELFPAY ==
[2020-02-22] VITALS (10 sets, daily range): BP systolic 98–120; BP diastolic 60–81; PULSE 100–201; RESP 16–30; TEMP 36.9; O2SAT 98–100
[2020-02-22] MEDS: ADENOSINE 6 MG/2 ML VIAL 18 MG IV (09:45)
[2020-02-22] MEDS: SODIUM CHLORIDE 0.9% 1,000 ML 1000 ML IV (09:47)
--- NOTE | 2020-02-22 09:48 | ED.ARRPALP ---
HPI - Arrhythmia/Palpitations General Chief Complaint: Arrhythmia/Palpitations Stated Complaint: SVT Time Seen by Provider: 02/22/20 09:35 Source: patient Mode of arrival: Ambulatory Limitations: no limitations History of Present Illness HPI narrative: Patient is a 74-year-old female with history of recurrent Hodgkin's lymphoma presenting today with her 3rd episode of SVT this month. He says both of her cp bleacher operator have moved on or retired, previously they have talked about ablation for her however she has been resistant seeing as though she is still being treated with chemotherapy for her Hodgkin's lymphoma. Today she said this started about an hour prior to arrival. She tries things at home but they never work. She has previously had low-grade fevers but that is due to her Hodgkin's. She is afebrile today. She has not missed her Cardizem dose. complaint: heart racing Onset (ago): hour(s) Duration: constant Arrhythmia history: SVT Related Data Home Medications Medication Instructions Recorded Confirmed Probiotic 1 cap PO DAILY #0 07/04/12 01/26/20 coQ10 (ubiquinol) 250 mg PO DAILY #0 07/04/12 01/26/20 multivitamin 1 tab PO DAILY #0 07/04/12 01/26/20 Protandim 1 dose PO DAILY 05/15/18 01/26/20 Vitamin D Liquid 1 dose TOPICAL DAILY 05/15/18 01/26/20 Vadim Stress 1 tab DAILY 08/25/18 01/26/20 ascorbic acid (vitamin C) [Vitamin 1,000 mg PO DAILY 08/25/18 01/26/20 C] turmeric (bulk) [Curcumin] 1 % DAILY 08/25/18 01/26/20 valacyclovir 500 mg PO TID 02/17/20 02/17/20 Previous Rx's Medication Instructions Recorded mupirocin 2 % topical ointment 1 applic TOP BID #30 gram 08/11/18 diltiazem HCl 180 mg 180 mg PO QPM #90 cap 06/26/19 capsule,extended release 24 hr cephalexin [Keflex] 500 mg PO TID #21 cap 02/11/20 Allergies Allergy/AdvReac Type Severity Reaction Status Date / Time NSAIDS (Non-Steroidal Allergy Intermediate HIVES Verified 01/21/20 14:37 Anti-Inflamma [NSAIDS (NON-STEROIDAL ANTI-INFLAMMA] amoxicillin [AMOXICILLIN] Allergy Mild rash Verified 01/21/20 14:37 aspirin Allergy Verified 01/21/20 14:37 Review of Systems Review of Systems Narrative: GENERAL: Denies chills, fatigue, malaise, fever, sweats, travel HEENT: Denies sinus pain, ear pain, sore throat, difficulty swallowing, neck pain RESPIRATORY: Denies dyspnea, cough, wheezing, hemoptysis, sputum. CARDIOVASCULAR: See HPI GASTROINTESTINAL: Denies nausea, vomiting, abdominal pain, diarrhea, constipation, melena. : Denies dysuria, frequency, incontinence, hematuria, urinary retention, flank pain. MUSCULOSKELETAL: Denies weakness, joint pain, or bony pain SKIN: No rash, no erythema, no pruritus NEUROLOGIC: Denies weakness, dizziness, headache, numbness, change in speech, confusion PSYCHIATRIC: No concerning psychosocial issues. 12 point review of systems is negative except for those stated above and HPI Patient History Medical History (Updated 02/22/20 @ 10:42 by Barbie Méndez DO) Follicular non-Hodgkin's lymphoma SVT (supraventricular tachycardia) Surgical History History of removal of Port-a-Cath Social History household members: family Smoking Status: Former smoker alcohol intake: never substance use type: does not use Smoking Status: Former smoker alcohol intake frequency: holidays/special occasions only Substance Use Type: does not use Exam Initial Vital Signs Initial Vital Signs: Vital Signs Temperature 98.4 F 02/22/20 09:30 Pulse Rate 201 H 02/22/20 09:30 Respiratory Rate 16 02/22/20 09:30 Blood Pressure 120/81 02/22/20 09:30 Pulse Oximetry 100 02/22/20 09:30 GENERAL: Alert pleasant thin well-appearing elderly female and in no acute distress. HEENT: Head atraumatic,EOMI, pupils reactive, face symmetric, moist mucous membranes CARDIOVASCULAR: Tachycardic regular no murmur RESPIRATORY: Breath sounds equal bilaterally, no wheezes rales or rhonchi. ABDOMEN: Soft, nontender. Normoactive bowel sounds all 4 quadrants. No guarding or rebound. EXTREMITIES: Normal range of motion, no clubbing or edema. Neurovascularly intact NEUROLOGICAL: Alert and oriented x4.Normal gait and speech. SKIN: Erythematous areas on her face and neck that have scabbed over she states these are from the Hodgkin's Course Orders Ordered: Discontinued Medications Sodium Chloride (Normal Saline 0.9%) 1,000 mls @ 1,000 mls/hr IV CONT SWAPNA Last Infusion: 02/22/20 10:41 Dose: 0 mls/hr Documented by: Admin: 02/22/20 09:47 Dose: 1,000 mls/hr Documented by: STEF Potassium Chloride (Potassium Chloride 20 Meq Tab) 40 meq PO NOW ONE Stop: 02/22/20 10:47 Last Admin: 02/22/20 11:00 Dose: 40 meq Documented by: STEF Vital Signs Vital signs: Vital Signs - 8 hr 02/22/20 09:30 02/22/20 09:36 02/22/20 09:45 Temperature 98.4 F Pulse Rate 201 H 200 H 136 H Respiratory Rate 16 16 Blood Pressure 120/81 120/81 Pulse Oximetry 100 99 02/22/20 09:54 02/22/20 09:55 Temperature Pulse Rate 110 H 110 H Respiratory Rate 19 16 Blood Pressure 101/64 Pulse Oximetry 100 99 MDM - Arrhythmia/Palpitations Lab Data Attestation: I reviewed the patient's lab results. Result diagrams: 02/22/20 09:37 02/22/20 09:37 Labs: Lab Results 02/22/20 02/22/20 02/22/20 Range/Units 09:37 09:37 09:37 WBC 5.4 (4.5-11.0) X10^3/uL RBC 3.91 L (4.0-5.2) X10^6/uL Hgb 11.4 L (12.0-16.0) g/dL Hct 35.1 L (36-46) % MCV 89.7 (80-100) fL MCH 29.1 (26-34) PG MCHC 32.5 (30-36) % RDW 15.4 H (11.6-14.8) % Plt Count 36 L* (150-400) X10^3/uL Neut % (Auto) Not Reportable Lymph % (Auto) Not Reportable [place] % (Auto) Not Reportable Eos % (Auto) Not Reportable Baso % (Auto) Not Reportable Lymph # (Auto) Not Reportable [place] # (Auto) Not Reportable Baso # (Auto) Not Reportable Total Counted 100 Seg Neutrophils % 35.0 L (38-70) % Band Neutrophils % 6.0 (3-7) % Lymphocytes % (Manual) 35.0 (25-45) % Atypical Lymphs % 5.0 H ( - 0) % Monocytes % (Manual) 16.0 H (2-11) % Eosinophils % (Manual) 2.0 (2-4) % Basophils % (Manual) 1.0 (0-1) % Neutrophils # (Manual) 2214 L (9330-4801) /uL RBC Morphology See below Anisocytosis 1+ H Sodium 138 (137-145) mmol/L Potassium 3.2 L (3.4-5.1) mmol/L Chloride 103 (98-107) mmol/L Carbon Dioxide 29 (22-32) mmol/L BUN 13 (7-17) mg/dL Creatinine 0.71 (0.52-1.04) mg/dL Estimated GFR > 60.0 (>60) mL/min BUN/Creatinine Ratio 18.3 (6-22) Glucose 105 (80-110) mg/dL Calcium 10.2 (8.4-10.2) mg/dL Magnesium 2.1 (1.6-2.3) mg/dL Total Bilirubin 0.7 (0.2-1.3) mg/dL AST 56 H (14-36) IU/L ALT 31 (<35) IU/L Alkaline Phosphatase 111 (38-126) U/L Total Protein 6.8 (6.3-8.2) g/dL Albumin 3.8 (3.5-5.0) g/dL Globulin 3.0 (1.7-4.1) g/dL Albumin/Globulin Ratio 1.3 (1.0-2.8) ECG Data Attestation: I personally reviewed and interpreted this ECG as follows: Prior ECG tracings: available for review Interpretation: EKG 1. SVT rate [address] changes similar to previous EKG EKG 2. Normal sinus rhythm rate 111 p.r. interval 182 QRS [address] changes MDM Narrative Medical decision making narrative: Dr. Purcell cardiology has been updated on patient's frequent visits to the ED. He has been updated on her vitals at this time recommend adding metoprolol 25 mg at night and continue 180 mg of Cardizem in the a.m.. She needs to call Dr. Lazar and schedule ablation. Potassium is found to be slightly low she is given oral potassium. No other literally abnormalities are found. Blood work is reassuring. Patient is actually taking Cardizem at night and in the morning and refuses to take metoprolol. She has an appointment with her cp bleacher operator tomorrow. At this time I will not change anything and her cp bleacher operator side what is best for her. His complicated history and with Hodgkin's and recurrent SVT. Discharge Plan Departure Patient Disposition: Home Clinical Impression: SVT (supraventricular tachycardia) Instructions: DI for Paroxysmal Supraventricular Tachycardia Activity Restrictions/Additional Instructions: *You have been diagnosed with SVT *What to do: At this time is strongly recommended that he follow up with Cardiology as soon as possible and talked about ablation. *Continue to take medications as directed Cardizem 180 mg in the morning *Follow up with your primary care provider in 2-3 days See your cp bleacher operator as scheduled tomorrow *Return to ER if you should have palpitations chest pain dizziness lightheadedness or any new, worsening or concerning symptoms Prescriptions: No Action mupirocin 2 % ointment 1 applic TOP BID Qty: 30 RF: 0 multivitamin Tablet 1 tab PO DAILY Qty: 0 RF: 0 Probiotic capsule 1 cap PO DAILY Qty: 0 RF: 0 coQ10 (ubiquinol) capsule 250 mg PO DAILY Qty: 0 RF: 0 diltiazem HCl [Cartia XT] 180 mg capsule,extended release 24hr 180 mg PO QPM Qty: 90 RF: 3 Curcumin 95 % Powder 1 % DAILY RF: 0 ascorbic acid (vitamin C) [Vitamin C] 500 mg Tablet Extended Release 1,000 mg PO DAILY RF: 0 Vadim Stress 1 tab DAILY RF: 0 cephalexin [Keflex] 500 mg Capsule 500 mg PO TID Qty: 21 RF: 0 valacyclovir 500 mg Tablet 500 mg PO TID RF: 0 Protandim 1 dose PO DAILY RF: 0 Vitamin D Liquid 1 dose topical DAILY RF: 0 Referrals: Mingo Jones MD [Primary Care Provider] - Asher Lazar MD [Physician] -
--- NOTE | 2020-02-22 09:51 | PC.NURSE ---
Pt arrived ambulatory to room. h/o SVT and here earlier in the month. states she was at the sink washing dishes and she felt her heart skip a beat and she knew she was in SVT again. no h/o ablation. HR 200 SVT on monitor at triage BP 120/81. denies dizziness or chest pain. IV placed labs obtained. EKG obtained. Dr Méndez at bedside. Vagal maneuvers unsuccessful. NS bolus infusing and 6mg adenosine given. HR 110 ST. repeat ekg obtained. pt resting in bed NAD.
[2020-02-22 09:58] LABS: Hematocrit 35.1 % (36-46); Hemoglobin 11.4 g/dL (12.0-16.0); Mean Corpuscular HGB Conc 32.5 % (30-36); Mean Corpuscular Hemoglobin 29.1 PG (26-34); Mean Corpuscular Volume 89.7 fL (80-100); Red Blood Cell Count 3.91 X10^6/uL (4.0-5.2); Red Cell Distribution Width 15.4 % (11.6-14.8); White Blood Cell Count 5.4 X10^3/uL (4.5-11.0)
[2020-02-22 09:59] LABS: Magnesium 2.1 mg/dL (1.6-2.3)
[2020-02-22 10:00] LABS: Alanine Aminotransferase 31 IU/L (<35); Albumin 3.8 g/dL (3.5-5.0); Albumin Globulin Ratio 1.3 (1.0-2.8); Alkaline Phosphatase 111 U/L (38-126); Aspartate Aminotransferase 56 IU/L (14-36); BUN Creatinine Ratio 18.3 (6-22); Bilirubin Total 0.7 mg/dL (0.2-1.3); Blood Urea Nitrogen 13 mg/dL (7-17); Calcium 10.2 mg/dL (8.4-10.2); Carbon Dioxide 29 mmol/L (22-32); Chloride 103 mmol/L (98-107); Estimated Glomerular Filt Rate > 60.0 mL/min (>60); Glucose 105 mg/dL (80-110); HEMOLYSIS < 15 (0-50); Potassium 3.2 mmol/L (3.4-5.1); Sodium 138 mmol/L (137-145); Total Protein 6.8 g/dL (6.3-8.2)
[2020-02-22 10:11] LABS: Add Manual Diff / Slide Review YES; Platelet Count 36 X10^3/uL (150-400)
[2020-02-22 10:23] LABS: Neutrophils Absolute Manual 2214 /uL (3000-5900); Total Cells Counted 100
[2020-02-22 10:24] LABS: Anisocytosis 1+
[2020-02-22] MEDS: POTASSIUM CHLORIDE 20 MEQ TAB 40 MEQ PO (11:00)
== END 2020-02-22 11:11 | disposition home or self-care (01) ==
PROVIDERS: Emergency Provider Emergency Medicine; Family Provider Internal Medicine Hematology & Oncology; PCP Student in an Organized Health Care Education/Training Program
DX: I47.1 Supraventricular tachycardia (principal)
CPT/HCPCS: 36415; 80053; 83735; 85007; 85025; 93005; 93010; 96361; 96374; 99284; 99291; J0153

== ENCOUNTER → 2020-02-24 14:00 | Oncology outpatient (ONC) | payer MEDICARE, OTHER, SELFPAY ==
--- NOTE | 2018-03-04 12:30 | PC.NURSE ---
Late entry for 03/03/18 2 pm: pt came in asking to speak with bright cutter. Pt states that she has started experiencing night sweats again and was told to report these symptoms to us if they should start again. Denies fever. Denies weight loss or decreased appetite. Her appt with Dr Gongora is after the New Year. Requested schedulers to move her appt to be seen sooner by Dr Gongora due to return of symptoms.
[2018-03-04 15:01] LABS: Add Manual Diff / Slide Review NO; Basophils Percent Auto 0.8 % (0-2); Hematocrit 36.2 % (36-46); Hemoglobin 12.3 g/dL (12.0-16.0); Lymphocytes Percent Auto 20.3 % (25-40); Mean Corpuscular HGB Conc 33.9 % (30-36); Mean Corpuscular Hemoglobin 30.6 PG (26-34); Mean Corpuscular Volume 90.1 fL (80-100); Monocytes Percent Auto 10.3 % (3-14); Neutrophils Absolute Auto 4100 /uL (3000-5900); Neutrophils Percent Auto 66.6 % (50-75); Platelet Count 217 X10^3/uL (150-400); Red Blood Cell Count 4.01 X10^6/uL (4.0-5.2); Red Cell Distribution Width 13.3 % (11.6-14.8); White Blood Cell Count 6.1 X10^3/uL (4.5-11.0)
[2018-03-04 15:14] LABS: Alanine Aminotransferase 27 IU/L (9-52); Albumin 3.9 g/dL (3.5-5.0); Albumin Globulin Ratio 1.4 (1.0-2.8); Alkaline Phosphatase 96 U/L (38-126); Aspartate Aminotransferase 21 IU/L (14-36); BUN Creatinine Ratio 23.3 (6-22); Bilirubin Total 0.2 mg/dL (0.2-1.3); Blood Urea Nitrogen 14 mg/dL (7-17); Calcium 8.6 mg/dL (8.4-10.2); Carbon Dioxide 27 mmol/L (22-32); Chloride 103 mmol/L (98-107); Estimated Glomerular Filt Rate > 60.0 mL/min (>60); Globulin 2.7 g/dL (1.7-4.1); Glucose 90 mg/dL (80-110); HEMOLYSIS < 15 (0-50); Lactate Dehydrogenase 507 U/L (313-618); Potassium 4.2 mmol/L (3.4-5.1); Sodium 142 mmol/L (137-145); Total Protein 6.6 g/dL (6.3-8.2)
[2018-03-06 08:42] VITALS: BP 113/67; PULSE 81; RESP 18; TEMP 37.1; O2SAT 100
--- NOTE | 2018-03-06 08:46 | ONC.PN ---
PN -Subjective Interval history: 72-year-old female with history Hodgkin's lymphoma and low-grade follicular lymphoma here for scheduled follow-up visit. Her follicular lymphoma was diagnosed in 2008. He underwent needle core biopsy of retroperitoneal lymph nodes on 12/27/2008 that showed atypical lymphoid infiltrate most consistent with follicular lymphoma. 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 FLIPI score was 2. She was consulted at [facility] and active surveillance was recommended. Until now there has been no evidence to suggest recurrence or transformation of her underlying follicular lymphoma. As far as Hodgkin's lymphoma is concerned, in 2017 patient presented with raised skin plaques affecting the upper trunk and the facial area. Patient underwent skin punch biopsy of the lesion on the right superior upper chest on 05/15/2016 which showed classical Hodgkin's lymphoma involving deep dermis and subcutaneous tissue. Staging CT scan on 05/30/2016 showed multiple, diffuse, superficial soft tissue nodularity: anterior left ear, right ear, upper back, posterior right shoulder, sternoclavicular notch, right lateral aspect of the upper breast, posterior to left scapular and anterior aspect of the right chest wall. The conglomerate adenopathy at the retrocrural and periaortic level overall smaller compared to previous scan reflecting follicular lymphoma. PET-CT on 06/13/2016 showed multiple cutaneous hypermetabolic lesions ([place] 5) involving bilateral neck, just above the right mandibular angle, anterior neck supercial to the thyroid cartilage, chest wall, shoulders and upper arms bilaterally, small left axillary lymph node, extensive retroperitoneal lymphadenpathy most prominent for a bulky left para-aortic lymph nodes measuring 28 x 36 x 75 mm with SUV 11.7, left internal an dexternal iliac lymphadenopathy, right pelvis, cutaneous nodules in the posterior low back and buttocks, Her HD was therefore deemed stage IV. Patient received ABVD from 06/12/2016 through 12/04/2016. After 2 cycles, she had [place] 1 PET response, bleomycin was discontinued. After treatment patient has been on active surveillance. Her most recent CT scan was in June of 2017. And it did not show any evidence of disease recurrence or metastasis. Retroperitoneal lymph nodes are shrinking in size. Recently, she had night sweats last week, not enough to change night gown, slightly wet on the chest and upper back. No fever. She is having dry cough. Denies sore throat. She reports good appetite, Good energy. Weight has been consistent and no changes. no shortness of breath, no chest pain. Has SVT on cardizem. no abd pain, no diarrhea and no constipation. no skin changes. - Additional ROS All systems PM: reviewed and no additional remarkable complaints except as stated Home Medications and Allergies Home Medications Medication Instructions Recorded Confirmed Type B.ANI/L.ACI/L.MIS/L.PLAN/L.SILAS 1 cap PO Q DAY #0 07/04/12 01/10/18 History (Probiotic Formula Capsule) CA PANTOTHENATE/FOLIC ACID/VIT 1 tab PO QDAY #0 07/04/12 01/10/18 History (MULTIVITAMIN) Coenzyme Q10 (#COQ10) 250 mg PO #0 07/04/12 01/10/18 History diltiazem HCl [Cartia XT] 180 mg PO QDAY #0 03/28/17 01/10/18 History magnesium oxide 250 mg PO #0 05/30/17 01/10/18 History Allergies Allergy/AdvReac Type Severity Reaction Status Date / Time NSAIDS (Non-Steroidal Allergy Intermediate HIVES Unverified 01/10/18 11:11 Anti-Inflamma [NSAIDS (NON-STEROIDAL ANTI-INFLAMMA] amoxicillin [AMOXICILLIN] Allergy Mild rash Unverified 01/10/18 11:11 Exam Vital signs: Last Vital Signs Temp 98.8 F 03/06/18 08:42 Pulse 81 03/06/18 08:42 Resp 18 03/06/18 08:42 BP 113/67 03/06/18 08:42 Pulse Ox 100 03/06/18 08:42 ECOG 1 Narrative: Constitutional: WDWN, NAD, thin, well groomed, pleasant and cooperative. HEENT: NCAT, EOMI, PERRLA, anicteric sclera, no hearing difficulty; Oral mucus membrane moist and without ulcers. Neck: Supple, symmetrical, and tracheal midline; No palpable thyromegaly and no palpable lymph nodes. Respiratory: No use of accessory muscles. Clear to auscultation, and no wheezes or rales or rubs. Cardiovascular: Regular rate and rhythm, S1 and S2 normal, no murmurs gallops or rubs. No JVD. No pitting edema of lower extremities. Abdomen: Soft, nontender, non-distended, bowel sounds normal, no palpable organomegaly, no hernia, no palpable masses. Lower extremities: No palpable pedal edema. Lymphatic: no palpable lymph nodes in the neck, axillae, or groins. Musculoskeletal: normal gait and station, no clubbing, no cyanosis, no pitting edema. Skin: no rashes, no ulcers, no petechiae Neurological: Awake and alert and oriented x3. CN II-XII grossly intact. No focal motor or sensory deficit. Psychiatric: Good judgment, good insight, normal affect, normal thought process, cooperative, no depression, no anxiety. Results - Labs Laboratory Last Values WBC 6.1 X10^3/uL (4.5-11.0) 03/04/18 14:50 RBC 4.01 X10^6/uL (4.0-5.2) 03/04/18 14:50 Hgb 12.3 g/dL (12.0-16.0) 03/04/18 14:50 Hct 36.2 % (36-46) 03/04/18 14:50 MCV 90.1 fL (80-100) 03/04/18 14:50 MCH 30.6 PG (26-34) 03/04/18 14:50 MCHC 33.9 % (30-36) 03/04/18 14:50 RDW 13.3 % (11.6-14.8) 03/04/18 14:50 Plt Count 217 X10^3/uL (150-400) 03/04/18 14:50 Neut % (Auto) 66.6 % (50-75) 03/04/18 14:50 Lymph % (Auto) 20.3 % (25-40) L 03/04/18 14:50 [place] % (Auto) 10.3 % (3-14) 03/04/18 14:50 Eos % (Auto) 2.0 % (2-4) 03/04/18 14:50 Baso % (Auto) 0.8 % (0-2) 03/04/18 14:50 Neut # (Auto) 4100 /uL (4735-0690) 03/04/18 14:50 Sodium 142 mmol/L (137-145) 03/04/18 14:50 Potassium 4.2 mmol/L (3.4-5.1) 03/04/18 14:50 Chloride 103 mmol/L (98-107) 03/04/18 14:50 Carbon Dioxide 27 mmol/L (22-32) 03/04/18 14:50 BUN 14 mg/dL (7-17) 03/04/18 14:50 Creatinine 0.60 mg/dL (0.52-1.04) 03/04/18 14:50 Estimated GFR > 60.0 mL/min (>60) 03/04/18 14:50 BUN/Creatinine Ratio 23.3 (6-22) H 03/04/18 14:50 Glucose 90 mg/dL (80-110) 03/04/18 14:50 Calcium 8.6 mg/dL (8.4-10.2) 03/04/18 14:50 Total Bilirubin 0.2 mg/dL (0.2-1.3) 03/04/18 14:50 AST 21 IU/L (14-36) 03/04/18 14:50 ALT 27 IU/L (9-52) 03/04/18 14:50 Alkaline Phosphatase 96 U/L (38-126) 03/04/18 14:50 Lactate Dehydrogenase 507 U/L (313-618) 03/04/18 14:50 Total Protein 6.6 g/dL (6.3-8.2) 03/04/18 14:50 Albumin 3.9 g/dL (3.5-5.0) 03/04/18 14:50 Globulin 2.7 g/dL (1.7-4.1) 03/04/18 14:50 Albumin/Globulin Ratio 1.4 (1.0-2.8) 03/04/18 14:50 Assessment and Plan (1) Hodgkins lymphoma Problem details: 1. Stage IV classical HD, diagnosed after skin punch biopsy of a lesion on the right superior upper chest on 05/15/2016. CT and PET scan staging showed extensive multiple superfical soft tissues of the skin and retroperitoneal lymphadenpathy 2. Patient received ABVD from 06/12/2016 through 12/04/2016. After 2 cycles, she had [place] 1 PET response, bleomycin was discontinued. Assessment and plan: Clinically, I do not think there is any clear evidence of disease recurrence or metastasis. Will continue current active surveillance based on NCCN guidelines. I will repeat the scan including a CT scan of the chest abdomen and pelvis and will have the patient come back in for results review. (2) Follicular lymphoma Problem details: Follicular lymphoma diagnosed by needle core biopsy of retroperitoneal lymph nodes on 12/27/2008 that showed atypical lymphoid infiltrate most consistent with follicular lymphoma. 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 FLIPI score was 2. She was consulted at [facility] and active surveillance was recommended. Until now there has been no evidence to suggest recurrence or transformation of her underlying follicular lymphoma. Assessment and plan: Just as her Hodgkin's lymphoma, we will continue active surveillance. If there are any enlarged lymph nodes, she will need biopsy to differentiate between follicular lymphoma and Hodgkin's lymphoma.
--- NOTE | 2018-03-06 08:56 | P.PNONC_ITS ---
PN -Subjective Interval history: 72-year-old female with history Hodgkin's lymphoma and low-grade follicular lymphoma here for scheduled follow-up visit. Her follicular lymphoma was diagnosed in 2008. He underwent needle core biopsy of retroperitoneal lymph nodes on 12/27/2008 that showed atypical lymphoid infiltrate most consistent with follicular lymphoma. He also had bone marrow aspiration and biopsy were performed on 12/24/2008 that showed normal cellular marrow with low level involvement by follicular lymphoma positive for t(14:18)( q32:q21) involving the BCL2 chain by FISH. FLIPI score was 2. She was consulted at [facility] and active surveillance was recommended. Until now there has been no evidence to suggest recurrence or transformation of her underlying follicular lymphoma. As far as Hodgkin's lymphoma is concerned, in 2017 patient presented with raised skin plaques affecting the upper trunk and the facial area. Patient underwent skin punch biopsy of the lesion on the right superior upper chest on which showed classical Hodgkin's lymphoma involving deep dermis and subcutaneous tissue. Staging CT scan on 05/30/2016 showed multiple, diffuse, superficial soft tissue nodularity: anterior left ear, right ear, upper back, posterior right shoulder, sternoclavicular notch, right lateral aspect of the upper breast, posterior to left scapular and anterior aspect of the right chest wall. The conglomerate adenopathy at the retrocrural and periaortic level overall smaller compared to previous scan reflecting follicular lymphoma. PET- CT on 06/13/2016 showed multiple cutaneous hypermetabolic lesions ([place] 5) involving bilateral neck, just above the right mandibular angle, anterior neck supercial to the thyroid cartilage, chest wall, shoulders and upper arms bilaterally, small left axillary lymph node, extensive retroperitoneal lymphadenpathy most prominent for a bulky left para-aortic lymph nodes measuring 28 x 36 x 75 mm with SUV 11.7, left internal an dexternal iliac lymphadenopathy, right pelvis, cutaneous nodules in the posterior low back and buttocks, Her HD was therefore deemed stage IV. Patient received ABVD from 06/12/2016 through 12/04/2016. After 2 cycles, she had [place] 1 PET response, bleomycin was discontinued. After treatment patient has been on active surveillance. Her most recent CT scan was in June of 2017. And it did not show any evidence of disease recurrence or metastasis. Retroperitoneal lymph nodes are shrinking in size. Recently, she had night sweats last week, not enough to change night gown, slightly wet on the chest and upper back. No fever. She is having dry cough. Denies sore throat. She reports good appetite, Good energy. Weight has been consistent and no changes. no shortness of breath, no chest pain. Has SVT on cardizem. no abd pain, no diarrhea and no constipation. no skin changes. - Additional ROS All systems PM: reviewed and no additional remarkable complaints except as stated Home Medications and Allergies Home Medications Medication Instructions Recorded Confirmed Type B.ANI/L.ACI/L.MIS/L.PLAN/L.SILAS 1 cap PO Q DAY #0 07/04/12 01/10/18 History (Probiotic Formula Capsule) CA PANTOTHENATE/FOLIC ACID/VIT 1 tab PO QDAY #0 07/04/12 01/10/18 History (MULTIVITAMIN) Coenzyme Q10 (#COQ10) 250 mg PO #0 07/04/12 01/10/18 History diltiazem HCl [Cartia XT] 180 mg PO QDAY #0 03/28/17 01/10/18 History magnesium oxide 250 mg PO #0 05/30/17 01/10/18 History Allergies Allergy/AdvReac Type Severity Reaction Status Date / Time NSAIDS (Non-Steroidal Allergy Intermediate HIVES Unverified 01/10/18 11:11 Anti-Inflamma [NSAIDS (NON-STEROIDAL ANTI-INFLAMMA] amoxicillin [AMOXICILLIN] Allergy Mild rash Unverified 01/10/18 11:11 Exam Vital signs: Last Vital Signs Temp 98.8 F 03/06/18 08:42 Pulse 81 03/06/18 08:42 Resp 18 03/06/18 08:42 BP 113/67 03/06/18 08:42 Pulse Ox 100 03/06/18 08:42 ECOG 1 Narrative: Constitutional: WDWN, NAD, thin, well groomed, pleasant and cooperative. HEENT: NCAT, EOMI, PERRLA, anicteric sclera, no hearing difficulty; Oral mucus membrane moist and without ulcers. Neck: Supple, symmetrical, and tracheal midline; No palpable thyromegaly and no palpable lymph nodes. Respiratory: No use of accessory muscles. Clear to auscultation, and no wheezes or rales or rubs. Cardiovascular: Regular rate and rhythm, S1 and S2 normal, no murmurs gallops or rubs. No JVD. No pitting edema of lower extremities. Abdomen: Soft, nontender, non-distended, bowel sounds normal, no palpable organomegaly, no hernia, no palpable masses. Lower extremities: No palpable pedal edema. Lymphatic: no palpable lymph nodes in the neck, axillae, or groins. Musculoskeletal: normal gait and station, no clubbing, no cyanosis, no pitting edema. Skin: no rashes, no ulcers, no petechiae Neurological: Awake and alert and oriented x3. CN II-XII grossly intact. No focal motor or sensory deficit. Psychiatric: Good judgment, good insight, normal affect, normal thought process , cooperative, no depression, no anxiety. Results - Labs Laboratory Last Values WBC 6.1 X10^3/uL (4.5-11.0) 03/04/18 14:50 RBC 4.01 X10^6/uL (4.0-5.2) 03/04/18 14:50 Hgb 12.3 g/dL (12.0-16.0) 03/04/18 14:50 Hct 36.2 % (36-46) 03/04/18 14:50 MCV 90.1 fL (80-100) 03/04/18 14:50 MCH 30.6 PG (26-34) 03/04/18 14:50 MCHC 33.9 % (30-36) 03/04/18 14:50 RDW 13.3 % (11.6-14.8) 03/04/18 14:50 Plt Count 217 X10^3/uL (150-400) 03/04/18 14:50 Neut % (Auto) 66.6 % (50-75) 03/04/18 14:50 Lymph % (Auto) 20.3 % (25-40) L 03/04/18 14:50 [place] % (Auto) 10.3 % (3-14) 03/04/18 14:50 Eos % (Auto) 2.0 % (2-4) 03/04/18 14:50 Baso % (Auto) 0.8 % (0-2) 03/04/18 14:50 Neut # (Auto) 4100 /uL (9972-3371) 03/04/18 14:50 Sodium 142 mmol/L (137-145) 03/04/18 14:50 Potassium 4.2 mmol/L (3.4-5.1) 03/04/18 14:50 Chloride 103 mmol/L (98-107) 03/04/18 14:50 Carbon Dioxide 27 mmol/L (22-32) 03/04/18 14:50 BUN 14 mg/dL (7-17) 03/04/18 14:50 Creatinine 0.60 mg/dL (0.52-1.04) 03/04/18 14:50 Estimated GFR > 60.0 mL/min (>60) 03/04/18 14:50 BUN/Creatinine Ratio 23.3 (6-22) H 03/04/18 14:50 Glucose 90 mg/dL (80-110) 03/04/18 14:50 Calcium 8.6 mg/dL (8.4-10.2) 03/04/18 14:50 Total Bilirubin 0.2 mg/dL (0.2-1.3) 03/04/18 14:50 AST 21 IU/L (14-36) 03/04/18 14:50 ALT 27 IU/L (9-52) 03/04/18 14:50 Alkaline Phosphatase 96 U/L (38-126) 03/04/18 14:50 Lactate Dehydrogenase 507 U/L (313-618) 03/04/18 14:50 Total Protein 6.6 g/dL (6.3-8.2) 03/04/18 14:50 Albumin 3.9 g/dL (3.5-5.0) 03/04/18 14:50 Globulin 2.7 g/dL (1.7-4.1) 03/04/18 14:50 Albumin/Globulin Ratio 1.4 (1.0-2.8) 03/04/18 14:50 Assessment and Plan (1) Hodgkins lymphoma Problem details: 1. Stage IV classical HD, diagnosed after skin punch biopsy of a lesion on the right superior upper chest on 05/15/2016. CT and PET scan staging showed extensive multiple superfical soft tissues of the skin and retroperitoneal lymphadenpathy 2. Patient received ABVD from 06/12/2016 through 12/04/2016. After 2 cycles, she had [place] 1 PET response, bleomycin was discontinued. Assessment and plan: Clinically, I do not think there is any clear evidence of disease recurrence or metastasis. Will continue current active surveillance based on NCCN guidelines. I will repeat the scan including a CT scan of the chest abdomen and pelvis and will have the patient come back in for results review. (2) Follicular lymphoma Problem details: Follicular lymphoma diagnosed by needle core biopsy of retroperitoneal lymph nodes on 12/27/2008 that showed atypical lymphoid infiltrate most consistent with follicular lymphoma. He also had bone marrow aspiration and biopsy were performed on 12/24/2008 that showed normal cellular marrow with low level involvement by follicular lymphoma positive for t(14:18)( q32:q21) involving the BCL2 chain by FISH. FLIPI score was 2. She was consulted at [facility] and active surveillance was recommended. Until now there has been no evidence to suggest recurrence or transformation of her underlying follicular lymphoma. Assessment and plan: Just as her Hodgkin's lymphoma, we will continue active surveillance. If there are any enlarged lymph nodes, she will need biopsy to differentiate between follicular lymphoma and Hodgkin's lymphoma.
[2018-03-31 10:38] LABS: BUN Creatinine Ratio 18.3 (6-22); Blood Urea Nitrogen 11 mg/dL (7-17); Estimated Glomerular Filt Rate > 60.0 mL/min (>60)
--- NOTE | 2018-03-31 11:11 | DI.CT.S_ITS ---
PROCEDURE: CT CHEST ABD PEL W CON INDICATIONS: night sweats TECHNIQUE: After the administration of oral and intravenous contrast, 5 mm thick sections acquired from the lung apices to the symphysis. 5 mm coronal and sagittal reformats were performed, with additional 7 mm coronal MIP reformats through the lungs. For radiation dose reduction, the following was used: automated exposure control, adjustment of mA and/or kV according to patient size. COMPARISON: [facility], CT, CHEST/ABD/PEL WITH CONTRAST, 07/03/2017, 8:30. FINDINGS: Image quality: Excellent. CHEST: Lungs and pleura: Minimal biapical scarring is seen. Linear scarring at anterior lateral aspect of left lung base is again seen and unchanged. No pleural effusions or pneumothorax. Central and peripheral airways appear patent and normal in caliber. Mediastinum: Heart size is normal. No pericardial effusion prominent retroesophageal lymph node is noted and measures 12 x 18 mm in size on the current study compared to 9 mm in short axis diameter on previous study. No other mediastinal or hilar adenopathy. Thoracic aorta and central pulmonary arteries are normal in size. Esophagus is normal in caliber. There is a small hiatal hernia. Chest wall: No axillary or supraclavicular adenopathy by size criteria. Thyroid gland is within normal limits. ABDOMEN: Solid organs: Liver is normal in size and enhancement. Gallbladder is unremarkable. Biliary system is non dilated. Pancreas enhances normally. Spleen is normal in size and enhancement. No adrenal nodules. Kidneys demonstrate normal size and enhancement, without hydronephrosis. Peritoneum and bowel: Bowel loops demonstrate normal wall thickness and caliber. No free fluid or air. Fecal stasis in the colon is seen. Nodes and vessels: There is interval significant worsening of left retroperitoneal lymphadenopathy evaluate along posterior left aspect of aorta now measures up to 2.5 x 3.7 cm in size. No gross mesenteric adenopathy is seen. Mildly prominent right retroperitoneal lymph nodes also seen and measures up to 11 x 14 mm in size in right aortic space. involving left retroperitoneal Aorta and inferior vena cava are normal in size. Miscellaneous: No ventral hernias. PELVIS: Genitourinary: Bladder wall thickness is normal. Miscellaneous: No inguinal hernias or adenopathy. Bones: No suspicious bony lesions. No vertebral body compression fractures. Moderate kyphosis centered at T6-7 level is again seen. Aranda-white anterolisthesis of L4 on L5 is again noted and unchanged. IMPRESSION: 1. Interval marked increase in the size of retroperitoneal lymphadenopathy more prominent in the left para-aortic space as described above. 2. Mildly increased retroesophageal lymph node sizes and measures up to 12 mm in short axis diameter on the current study. 3. Bibasilar scarring. Bilateral lungs are otherwise clear. 4. No gross mesenteric adenopathy. No bowel obstruction. No free fluid or free air. Dictated by: Jorje Villareal M.D. on 03/31/2018 at 13:14 Approved by: Jorje Villareal M.D. on 03/31/2018 at 13:35
--- NOTE | 2018-04-04 11:17 | ONC.PN ---
PN -Subjective Interval history: 72-year-old female with history Hodgkin's lymphoma and low-grade follicular lymphoma now here for scheduled follow-up visit CT CAP results. Her follicular lymphoma was diagnosed after core needle biopsy of retroperitoneal lymph nodes on 12/27/2008 that showed atypical lymphoid infiltrate most consistent with follicular lymphoma. 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 FLIPI score was 2. She was consulted at [facility] and active surveillance was recommended. Her Hodgkin's lymphoma was diagnosed after skin punch biopsy of the lesion on the right superior upper chest on 05/15/2016 which showed classical Hodgkin's lymphoma involving deep dermis and subcutaneous tissue. Her initial presentation was characterized by raised skin plaques affecting the upper trunk and the facial area. Staging CT scan on 05/30/2016 showed multiple, diffuse, superficial soft tissue nodules (anterior left ear, right ear, upper back, posterior right shoulder, sternoclavicular notch, right lateral aspect of the upper breast, posterior to left scapular and anterior aspect of the right chest wall). The conglomerate adenopathy at the retrocrural and periaortic level overall smaller compared to previous scan reflecting follicular lymphoma. PET-CT on 06/13/2016 showed multiple cutaneous hypermetabolic lesions ([place] 5) involving bilateral neck, just above the right mandibular angle, anterior neck supercial to the thyroid cartilage, chest wall, shoulders and upper arms bilaterally, small left axillary lymph node, extensive retroperitoneal lymphadenpathy most prominent for a bulky left para-aortic lymph nodes measuring 28 x 36 x 75 mm with SUV 11.7, left internal an dexternal iliac lymphadenopathy, right pelvis, cutaneous nodules in the posterior low back and buttocks, Her HD was therefore deemed stage IV. Patient received ABVD from 06/12/2016 through 12/04/2016. After 2 cycles, she had [place] 1 PET response, bleomycin was discontinued. After treatment patient has been on active surveillance. Her CT scan in June of 2017 did not show any evidence of disease recurrence or metastasis. And retroperitoneal lymph nodes were shrinking in size. In early 02/2018, she developed mild night sweats and dry cough. Therefore patient underwent CT scan of the chest abdomen and pelvis on 03/31/2018. The scan showed interval marked increase in the size of retroperitoneal lymphadenopathy most prominent in the left para-aortic space, mildly increased retro esophageal lymph node sizes and measures up to 12 mm in short axis diameter, by basilar scarring in the lungs and no gross mesenteric adenopathy. - Patient Self-Reported Symptoms SR Constitution: Night Sweats - Additional ROS All systems PM: reviewed and no additional remarkable complaints except as stated Home Medications and Allergies Home Medications Medication Instructions Recorded Confirmed Type B.ANI/L.ACI/L.MIS/L.PLAN/L.SILAS 1 cap PO Q DAY #0 07/04/12 04/04/18 History (Probiotic Formula Capsule) CA PANTOTHENATE/FOLIC ACID/VIT 1 tab PO QDAY #0 07/04/12 04/04/18 History (MULTIVITAMIN) Coenzyme Q10 (#COQ10) 250 mg PO DAILY #0 07/04/12 04/04/18 History diltiazem CD 180 mg 180 mg PO QDAY #90 cap 04/01/18 04/04/18 Rx capsule,extended release 24 hr Allergies Allergy/AdvReac Type Severity Reaction Status Date / Time NSAIDS (Non-Steroidal Allergy Intermediate HIVES Verified 04/04/18 11:35 Anti-Inflamma [NSAIDS (NON-STEROIDAL ANTI-INFLAMMA] amoxicillin [AMOXICILLIN] Allergy Mild rash Verified 04/04/18 11:35 Exam Vital signs: Last Vital Signs Temp 98.4 F 04/04/18 11:34 Pulse 86 04/04/18 11:34 Resp 19 04/04/18 11:34 BP 126/77 04/04/18 11:34 Pulse Ox 97 04/04/18 11:34 ECOG 1 Narrative: Constitutional: WDWN, NAD, thin, well groomed, pleasant and cooperative. HEENT: NCAT, EOMI, PERRLA, anicteric sclera. Neck: Supple, symmetrical, and tracheal midline; No palpable thyromegaly and no palpable lymph nodes. Respiratory: No use of accessory muscles. Clear to auscultation, and no wheezes or rales or rubs. Cardiovascular: Regular rate and rhythm, S1 and S2 normal, no murmurs gallops or rubs. No JVD. No pitting edema of lower extremities. Abdomen: Soft, nontender, non-distended, bowel sounds normal, no palpable organomegaly, no hernia, no palpable masses. Lower extremities: No palpable pedal edema. Lymphatic: no palpable lymph nodes in the neck, axillae, or groins. Musculoskeletal: normal gait and station, no clubbing, no cyanosis, no pitting edema. Skin: no rashes, no ulcers, no petechiae Neurological: Awake and alert and oriented x3. CN II-XII grossly intact. No focal motor or sensory deficit. Psychiatric: Good judgment, good insight, normal affect, normal thought process, cooperative, no depression, no anxiety. Results - Labs Laboratory Last Values WBC 6.1 X10^3/uL (4.5-11.0) 03/04/18 14:50 RBC 4.01 X10^6/uL (4.0-5.2) 03/04/18 14:50 Hgb 12.3 g/dL (12.0-16.0) 03/04/18 14:50 Hct 36.2 % (36-46) 03/04/18 14:50 MCV 90.1 fL (80-100) 03/04/18 14:50 MCH 30.6 PG (26-34) 03/04/18 14:50 MCHC 33.9 % (30-36) 03/04/18 14:50 RDW 13.3 % (11.6-14.8) 03/04/18 14:50 Plt Count 217 X10^3/uL (150-400) 03/04/18 14:50 Neut % (Auto) 66.6 % (50-75) 03/04/18 14:50 Lymph % (Auto) 20.3 % (25-40) L 03/04/18 14:50 [place] % (Auto) 10.3 % (3-14) 03/04/18 14:50 Eos % (Auto) 2.0 % (2-4) 03/04/18 14:50 Baso % (Auto) 0.8 % (0-2) 03/04/18 14:50 Neut # (Auto) 4100 /uL (4121-1481) 03/04/18 14:50 Sodium 142 mmol/L (137-145) 03/04/18 14:50 Potassium 4.2 mmol/L (3.4-5.1) 03/04/18 14:50 Chloride 103 mmol/L (98-107) 03/04/18 14:50 Carbon Dioxide 27 mmol/L (22-32) 03/04/18 14:50 BUN 11 mg/dL (7-17) 03/31/18 10:09 Creatinine 0.60 mg/dL (0.52-1.04) 03/31/18 10:09 Estimated GFR > 60.0 mL/min (>60) 03/31/18 10:09 BUN/Creatinine Ratio 18.3 (6-22) 03/31/18 10:09 Glucose 90 mg/dL (80-110) 03/04/18 14:50 Calcium 8.6 mg/dL (8.4-10.2) 03/04/18 14:50 Total Bilirubin 0.2 mg/dL (0.2-1.3) 03/04/18 14:50 AST 21 IU/L (14-36) 03/04/18 14:50 ALT 27 IU/L (9-52) 03/04/18 14:50 Alkaline Phosphatase 96 U/L (38-126) 03/04/18 14:50 Lactate Dehydrogenase 507 U/L (313-618) 03/04/18 14:50 Total Protein 6.6 g/dL (6.3-8.2) 03/04/18 14:50 Albumin 3.9 g/dL (3.5-5.0) 03/04/18 14:50 Globulin 2.7 g/dL (1.7-4.1) 03/04/18 14:50 Albumin/Globulin Ratio 1.4 (1.0-2.8) 03/04/18 14:50 Assessment and Plan (1) Hodgkins lymphoma Problem details: 1. Stage IV classical HD, diagnosed after skin punch biopsy of a lesion on the right superior upper chest on 05/15/2016. CT and PET scan staging showed extensive multiple superfical soft tissues of the skin and retroperitoneal lymphadenpathy 2. Patient received ABVD from 06/12/2016 through 12/04/2016. After 2 cycles, she had [place] 1 PET response, bleomycin was discontinued. Assessment: I reviewed the CT scans with the patient and patient's friend Faye. I showed them the actual scans on the computer. I pointed out to them where the retroperitoneal lymph nodes are and compared the results with the CT scan dated June 2017. It clearly showed marked increase in sizes of the retroperitoneal lymph nodes. Clinically patient has symptoms including moderate night sweats. I talked with the patient that she has history of follicular lymphoma as well as Hodgkin's lymphoma. The increase of the retroperitoneal lymph nodes could represent either progression of follicular lymphoma, transformation of follicular lymphoma or recurrence of the Hodgkin's lymphoma. The distinction is critical in terms of prognosis and treatment. I recommended CT-guided biopsy of the retroperitoneal lymph nodes, bone marrow aspiration biopsy as well as complete staging with PET-CT. Patient voiced understanding. Plan: 1. PET/CT 2. CT guided biopsy of retroperitoneal lymph nodes 3. BMA/Bx 4. RTC on 05/05/2018, CBC, CMP, LDH, B2M (2) Follicular lymphoma Problem details: Follicular lymphoma diagnosed by needle core biopsy of retroperitoneal lymph nodes on 12/27/2008 that showed atypical lymphoid infiltrate most consistent with follicular lymphoma. 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 FLIPI score was 2. She was consulted at [facility] and active surveillance was recommended. Until now there has been no evidence to suggest recurrence or transformation of her underlying follicular lymphoma. Assessment and Plan: Please see the discussion above.
[2018-04-04 11:34] VITALS: BP 126/77; PULSE 86; RESP 19; TEMP 36.9; O2SAT 97
--- NOTE | 2018-04-08 08:31 | ONC.SCHED ---
Dr. Najera denied the biopsy on the LN. Note from radiology put in Dr. Gongora's box.
--- NOTE | 2018-04-10 | PATH_ITS ---
[facility] Accession Number: [id number] . 01 Material submitted: . PART A: BONE MARROW BIOPSY PART B: BONE MARROW ASPIRATION . 01 Clinical history: . Patient with a history of follicular lymphoma diagnosed in December 2008 and classical Hodgkin lymphoma diagnosed in April 2016. In early February 2018, she developed mild night sweats and a dry cough; and CT scan in March 2018 revealed increased lymphadenopathy in the retroperitoneal, left para-aortic, and retro-esophageal spaces. . 01 Diagnosis: BONE MARROW, CORE BIOPSY, ASPIRATE, AND CLOT SECTIONS: 1. Hypercellular marrow for age (70-75% cellularity) with no morphologic or immunophenotypic evidence of involvement by non-Hodgkin lymphoma or Hodgkin lymphoma (see Comments) 2. No significant marrow reticulin fibrosis 3. No morphologic evidence of myelodysplasia . PERIPHERAL BLOOD: Essentially normal WBC, RBC, and platelet morphology . FLOW CYTOMETRIC ANALYSIS ([id number]): Bone marrow, aspirate: 1. No abnormal B-cell or T-cell population identified (see Flow Comments) 2. No abnormal blast or myeloid cell population identified . 04/15/2018 . 01 Comment: Occasional small, well-circumscribed, mid-marrow lymphoid aggregates are present in the marrow core biopsy and clot section blocks; however, these lymphoid collections lack significant morphologic atypia and appear T-cell predominant by immunohistochemistry, favoring them representing benign/reactive lymphocytes. . FLOW CYTOMETRY COMMENTS: . There is no immunophenotypic evidence of non-Hodgkin lymphoma or a myeloid stem cell neoplasm by flow cytometry. However, correlation with the concurrent marrow morphology is required to further exclude potential marrow involvement by lymphoma. In addition, a low-grade myelodysplastic syndrome or chronic-phase myeloproliferative neoplasm cannot be entirely excluded by flow cytometry, so correlation of these findings with the bone marrow morphology, routine cytogenetic karyotyping, and other clinical and laboratory findings is also recommended. Note that complete Hematopathology evaluation of the concurrently submitted marrow specimen will be reported separately in [id number]. . Flow cytometric analysis after lysis of the erythroid elements indicates that the viable leukocytes include 8.9% lymphocytes, 3.2% monocytes, 86% granulocytes, 0.2% CD34+ myeloid blasts, and 0.6% normal B-cell precursors/hematogones. The lymphocytes include 7% B-cells, 63% T-cells, and 26% NK-cells. The mature B-cells have a normal kappa:lambda ratio of 1.0. The T-cells have a mildly reversed CD4:CD8 ratio of 0.6, with an otherwise normal phenotype. The NK-cells are slightly expanded in relation to the overall lymphocyte subsets, but they have a normal phenotype. The granulocytes exhibit normal expression of CD10, CD11b, CD13, CD16 and CD15; the monocytes exhibit normal expression of CD13, CD14, CD33 and CD64; and the CD34+ blasts have no significant immunophenotypic abnormalities. . . 01 Electronically signed: . Ann-Marie Dumont MD, Pathologist NPI- [id number] . 01 Gross description: . A. In a container arbitrarily designated A, the specimen consists of two troncoso-cruz to red-brown portions of core, average diameter of 0.2 cm and ranging in length from 0.6 to 0.7 cm. The specimen is entirely submitted in cassette A1. Will be placed in decal for softening. B. In a container arbitrarily designated B is an aggregate of dark red-brown blood, which aggregates to 3.5 x 3.0 x 3.0 cm. The specimen is filtered, wrapped and entirely submitted in cassettes B1-B8. ([facility]:[id number]) /[facility] . 01 Microscopic: . CORE BIOPSY AND CLOT SECTIONS: . H/E-stained sections of the bone marrow core biopsy (block A1) reveal two cores of tissue comprised of approximately 75% periosteum and 25% trabecular bone and marrow that is hypercellular for age, estimated at 70-75% cellularity. The marrow in the core biopsy exhibits trilineage hematopoiesis with a single small, mid-marrow lymphoid aggregate. The lymphoid aggregate is relatively well-circumscribed and comprised of small, mature lymphocytes without atypia. H/E-stained sections of the clot (blocks B1-B8) reveal abundant blood clot and scattered cellular marrow particles reflective of the cellular portion of the core biopsy. Occasional small, well-circumscribed, mid-marrow lymphoid aggregates are also present in the clot section blocks, which are also comprised of small, mature lymphocytes. Megakaryocytes appear present in normal numbers, and are without morphologic atypia or atypical clustering. There is no evidence of an expanded blast or immature cell population. . ASPIRATE SMEARS AND TOUCH PREPARATION: . The aspirate smears are particulate and cellular, and a touch preparation of the core biopsy is well-prepared and adequately cellular for evaluation. Lymphocytes and plasma cells are present in normal numbers, and have no significant cytologic atypia. Megakaryocytes appear normal in number and have normal morphology without dysplastic features. The erythroid and myeloid precursors are present in relatively normal proportion, and display complete maturation without significant dysplastic or megaloblastoid features. There is no obvious increase in histiocytes or mast cells. A differential count of 500 marrow hematopoietic cells from the core touch imprint reveals 67.6% myeloid precursors, 25.4% erythroid precursors, 6.4% lymphocytes, and 0.6% plasma cells. . SPECIAL STAINS: . A reticulin stain performed on the biopsy (A1) reveals no significant increase in marrow reticulin fibrosis (WHO fibrosis grade 0 out of 3). An iron stain performed on an aspirate smear reveals an adequate amount of stainable marrow storage iron. No ring sideroblasts are identified. . IMMUNOHISTOCHEMISTRY*: . Select immunohistochemical studies were performed on the core biopsy (A1), and on the clot section blocks B4 and B6, with appropriate positive and negative controls, to further evaluate the small lymphoid aggregates present in the marrow. The lymphoid aggregates in both clot section blocks B4 and B6 are essentially entirely cut-through on the additional tissue levels upon which the CD20 and CD3 immunostains were performed. In the few lymphoid foci remaining, T-cells outnumber B-cells, and no abnormal B-cell collections are seen. The mid-marrow lymphoid aggregate in the core biopsy (A1) remains well-represented in the CD20 and CD3 immunostain levels, and is also [id number], with no abnormal B-cell collections. . PERIPHERAL BLOOD: . A Mallory-stained peripheral blood smear reveals the leukocytes to be normal in number, and a differential count of 300 cells reveals 78.4% neutrophils, 16% lymphocytes, 5.3% monocytes, and 0.3% eosinophils. The circulating neutrophils have appropriate nuclear segmentation and cytoplasmic granularity. No cytologically-atypical lymphocyte population is evident in the circulation. Per the CBC indices, the erythrocytes are normal in number and volume. There is no significant polychromasia or erythrocyte anisopoikilocytosis. Platelets are normal in number and generally well-granulated. . * Technical note: These tests and their performance characteristics have been determined by [employer]. They have not been cleared or approved by the U.S. Food and Drug Administration. The FDA has determined that such clearance or approval is not necessary. These tests are used for clinical purposes, and should not be regarded as investigational or for research. . . 01 Pathologist provided ICD-10: Z85.71, Z85.72, R59.9 . 01 CPT . 384537, 144028, 888581, 143466, 944613, 058688, 235382, V82511, P98892 Performed at: 01 [facility] [address] [place] [address], [place], [place] [id number] MD Aston Mcnamara MD Phone: [phone]
[2018-04-10 08:49] LABS: Add Manual Diff / Slide Review NO; Basophils Absolute Auto 100 /uL (0-100); Basophils Percent Auto 0.6 % (0-2); Eosinophils Absolute Auto 100 /uL (0-450); Eosinophils Percent Auto 1.3 % (2-4); Hematocrit 36.4 % (36-46); Hemoglobin 11.9 g/dL (12.0-16.0); Lymphocytes Absolute Auto 1200 /uL (1100-4500); Lymphocytes Percent Auto 13.5 % (25-40); Mean Corpuscular HGB Conc 32.8 % (30-36); Mean Corpuscular Hemoglobin 29.1 PG (26-34); Mean Corpuscular Volume 88.9 fL (80-100); Monocytes Absolute Auto 800 /uL (0-900); Monocytes Percent Auto 8.9 % (3-14); Neutrophils Absolute Auto 6600 /uL (1500-7000); Neutrophils Percent Auto 75.7 % (50-75); Platelet Count 262 X10^3/uL (150-400); Red Cell Distribution Width 13.3 % (11.6-14.8); White Blood Cell Count 8.7 X10^3/uL (4.5-11.0)
--- NOTE | 2018-04-10 09:34 | ONC.PROCEDUR ---
Date of procedure: 04/10/18 Diagnosis: follicular lymphoma and Hogkin's lymphoma. Onc Bone Marrow: bone marrow biopsy and aspiration Procedure: Patient was instructed to lie on her left side. Right posterior iliac crest was prepped, sterilized, at draped per standard procedure. Local anesthesia was obtained with injection of 2% lidocaine. Bone marrow aspiration needle was inserted without difficulty. A 20 cc sample of bone marrow was obtained and handed over for slide and sample preparation. Thereafter I inserted the biopsy needle and obtained a 3 cm long core bone marrow sample. Patient tolerated the procedure well. No immediate complications.
[2018-04-10 09:59] VITALS: BP 128/79; PULSE 92; RESP 16; TEMP 36.1; O2SAT 99
--- NOTE | 2018-04-16 16:12 | PC.NURSE ---
Pt 7days s/p BMBX. She is her today for evaluation of the site due to itching. Area is well healed with scab noted at the site of entry. Faint bruising noted. I did tell her she is quite dry around the area and that is was ok to use some cream to help elevate the itch as site was completely healed
--- NOTE | 2018-04-21 09:18 | ONC.SCHED ---
CT guided biopsy-approved auth # [id number] 04/17/18-07/16/18
[2018-04-24 14:25] LABS: Add Manual Diff / Slide Review NO; Basophils Absolute Auto 100 /uL (0-100); Basophils Percent Auto 0.7 % (0-2); Eosinophils Absolute Auto 0 /uL (0-450); Eosinophils Percent Auto 0.2 % (2-4); Hematocrit 35.8 % (36-46); Hemoglobin 11.6 g/dL (12.0-16.0); Lymphocytes Absolute Auto 1100 /uL (1100-4500); Lymphocytes Percent Auto 9.1 % (25-40); Mean Corpuscular HGB Conc 32.5 % (30-36); Mean Corpuscular Hemoglobin 28.6 PG (26-34); Monocytes Absolute Auto 800 /uL (0-900); Neutrophils Absolute Auto 10700 /uL (1500-7000); Platelet Count 254 X10^3/uL (150-400); Red Blood Cell Count 4.07 X10^6/uL (4.0-5.2); Red Cell Distribution Width 13.7 % (11.6-14.8); White Blood Cell Count 12.7 X10^3/uL (4.5-11.0)
[2018-04-24 14:35] LABS: INR 1.2 (0.9-1.3); Prothrombin Time 14.2 SECONDS (10.1-12.7)
[2018-04-24 14:41] LABS: Alanine Aminotransferase 27 IU/L (9-52); Albumin 3.8 g/dL (3.5-5.0); Albumin Globulin Ratio 1.3 (1.0-2.8); Alkaline Phosphatase 93 U/L (38-126); Aspartate Aminotransferase 31 IU/L (14-36); BUN Creatinine Ratio 18.3 (6-22); Bilirubin Total 0.4 mg/dL (0.2-1.3); Blood Urea Nitrogen 11 mg/dL (7-17); Calcium 8.7 mg/dL (8.4-10.2); Carbon Dioxide 28 mmol/L (22-32); Chloride 100 mmol/L (98-107); Estimated Glomerular Filt Rate > 60.0 mL/min (>60); Globulin 2.9 g/dL (1.7-4.1); Glucose 117 mg/dL (80-110); HEMOLYSIS < 15 (0-50); Lactate Dehydrogenase 541 U/L (313-618); Potassium 3.4 mmol/L (3.4-5.1); Sodium 136 mmol/L (137-145); Total Protein 6.7 g/dL (6.3-8.2)
--- NOTE | 2018-04-24 15:04 | ONC.PN ---
PN -Subjective Interval history: 72-year-old female with history Hodgkin's lymphoma and low-grade follicular lymphoma now here for scheduled follow-up. Patient reported that since February of 2018, patient has been having nonproductive cough. In addition patient has mild night sweats. Recently she noticed that patternmaker sample, she develops left-sided back stiffness. When she turns around that may help relieving the stiffness. In addition during the past 2 weeks, she has noticed fullness of the abdomen as well as gases abdomen. She said it was uncomfortable and bloating. She has not noticed any skin rashes or nodules. On 04/10/2018 patient underwent a bone marrow aspiration biopsy. The hematopathology showed no involvement by lymphoma either follicular or Hodgkin's. Patient underwent PET CT on 04/16/2018. The PET-CT showed hypermetabolic lymph nodes in the posterior mediastinum consistent with recurrent lymphoma (Deauville scale 5) and hypermetabolic retroperitoneal and mesenteric lymph nodes consistent with recurrent lymphoma (Deauville scale 5) Patient is scheduled for a CT-guided biopsy of the left retroperitoneal lymph nodes tomorrow. Oncology History Her follicular lymphoma was diagnosed after core needle biopsy of retroperitoneal lymph nodes on 12/27/2008 that showed atypical lymphoid infiltrate most consistent with follicular lymphoma. 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 FLIPI score was 2. She was consulted at [facility] and active surveillance was recommended. Her Hodgkin's lymphoma was diagnosed after skin punch biopsy of the lesion on the right superior upper chest on 05/15/2016 which showed classical Hodgkin's lymphoma involving deep dermis and subcutaneous tissue. Her initial presentation was characterized by raised skin plaques affecting the upper trunk and the facial area. Staging CT scan on 05/30/2016 showed multiple, diffuse, superficial soft tissue nodules (anterior left ear, right ear, upper back, posterior right shoulder, sternoclavicular notch, right lateral aspect of the upper breast, posterior to left scapular and anterior aspect of the right chest wall). The conglomerate adenopathy at the retrocrural and periaortic level overall smaller compared to previous scan reflecting follicular lymphoma. PET-CT on 06/13/2016 showed multiple cutaneous hypermetabolic lesions ([place] 5) involving bilateral neck, just above the right mandibular angle, anterior neck supercial to the thyroid cartilage, chest wall, shoulders and upper arms bilaterally, small left axillary lymph node, extensive retroperitoneal lymphadenpathy most prominent for a bulky left para-aortic lymph nodes measuring 28 x 36 x 75 mm with SUV 11.7, left internal an dexternal iliac lymphadenopathy, right pelvis, cutaneous nodules in the posterior low back and buttocks, Her HD was therefore deemed stage IV. Patient received ABVD from 06/12/2016 through 12/04/2016. After 2 cycles, she had [place] 1 PET response, bleomycin was discontinued. After treatment patient has been on active surveillance. Her CT scan in June of 2017 did not show any evidence of disease recurrence or metastasis. And retroperitoneal lymph nodes were shrinking in size. In early 02/2018, she developed mild night sweats and dry cough. Therefore patient underwent CT scan of the chest abdomen and pelvis on 03/31/2018. The scan showed interval marked increase in the size of retroperitoneal lymphadenopathy most prominent in the left para-aortic space, mildly increased retro esophageal lymph node sizes and measures up to 12 mm in short axis diameter, by basilar scarring in the lungs and no gross mesenteric adenopathy. - Patient Self-Reported Symptoms SR Constitution: Night Sweats SR ears, nose, mouth, throat issues: Cough SR respiratory issues: Cough - Additional ROS All systems PM: reviewed and no additional remarkable complaints except as stated Home Medications and Allergies Home Medications Medication Instructions Recorded Confirmed Type B.ANI/L.ACI/L.MIS/L.PLAN/L.SILAS 1 cap PO Q DAY #0 07/04/12 04/04/18 History (Probiotic Formula Capsule) CA PANTOTHENATE/FOLIC ACID/VIT 1 tab PO QDAY #0 07/04/12 04/04/18 History (MULTIVITAMIN) Coenzyme Q10 (#COQ10) 250 mg PO DAILY #0 07/04/12 04/04/18 History diltiazem CD 180 mg 180 mg PO QDAY #90 cap 04/01/18 04/04/18 Rx capsule,extended release 24 hr Allergies Allergy/AdvReac Type Severity Reaction Status Date / Time NSAIDS (Non-Steroidal Allergy Intermediate HIVES Verified 04/04/18 11:35 Anti-Inflamma [NSAIDS (NON-STEROIDAL ANTI-INFLAMMA] amoxicillin [AMOXICILLIN] Allergy Mild rash Verified 04/04/18 11:35 Exam Vital signs: Last Vital Signs Temp 98.3 F 04/24/18 15:05 Pulse 91 H 04/24/18 15:05 Resp 16 04/24/18 15:05 BP 124/68 04/24/18 15:05 Pulse Ox 99 04/24/18 15:05 ECOG 1 Narrative: Constitutional: WDWN, NAD, thin, well groomed, pleasant and cooperative. HEENT: NCAT, EOMI, PERRLA, anicteric sclera. Neck: Supple, symmetrical, and tracheal midline; No palpable thyromegaly and no palpable lymph nodes. Respiratory: No use of accessory muscles. Clear to auscultation, and no wheezes or rales or rubs. Cardiovascular: Regular rate and rhythm, S1 and S2 normal, no murmurs gallops or rubs. No JVD. No pitting edema of lower extremities. Abdomen: Soft, nontender, non-distended, bowel sounds normal, no palpable organomegaly, no hernia, no palpable masses. Lower extremities: No palpable pedal edema. Lymphatic: no palpable lymph nodes in the neck, axillae, or groins. Musculoskeletal: normal gait and station, no clubbing, no cyanosis, no pitting edema. Skin: no rashes, no ulcers, no petechiae Neurological: Awake and alert and oriented x3. CN II-XII grossly intact. No focal motor or sensory deficit. Psychiatric: Good judgment, good insight, normal affect, normal thought process, cooperative, no depression, no anxiety. Results - Labs Laboratory Last Values WBC 12.7 X10^3/uL (4.5-11.0) H 04/24/18 14:15 RBC 4.07 X10^6/uL (4.0-5.2) 04/24/18 14:15 Hgb 11.6 g/dL (12.0-16.0) L 04/24/18 14:15 Hct 35.8 % (36-46) L 04/24/18 14:15 MCV 88.0 fL (80-100) 04/24/18 14:15 MCH 28.6 PG (26-34) 04/24/18 14:15 MCHC 32.5 % (30-36) 04/24/18 14:15 RDW 13.7 % (11.6-14.8) 04/24/18 14:15 Plt Count 254 X10^3/uL (150-400) 04/24/18 14:15 Neut % (Auto) 84.0 % (50-75) H 04/24/18 14:15 Lymph % (Auto) 9.1 % (25-40) L 04/24/18 14:15 Tyler % (Auto) 6.0 % (3-14) 04/24/18 14:15 Eos % (Auto) 0.2 % (2-4) L 04/24/18 14:15 Baso % (Auto) 0.7 % (0-2) 04/24/18 14:15 Neut # (Auto) 79193 /uL (7616-9966) H 04/24/18 14:15 Lymph # (Auto) 1100 /uL (6719-8863) 04/24/18 14:15 Tyler # (Auto) 800 /uL (0-900) 04/24/18 14:15 Eos # (Auto) 0 /uL (0-450) 04/24/18 14:15 Baso # (Auto) 100 /uL (0-100) 04/24/18 14:15 Sodium 136 mmol/L (137-145) L 04/24/18 14:15 Potassium 3.4 mmol/L (3.4-5.1) 04/24/18 14:15 Chloride 100 mmol/L (98-107) 04/24/18 14:15 Carbon Dioxide 28 mmol/L (22-32) 04/24/18 14:15 BUN 11 mg/dL (7-17) 04/24/18 14:15 Creatinine 0.60 mg/dL (0.52-1.04) 04/24/18 14:15 Estimated GFR > 60.0 mL/min (>60) 04/24/18 14:15 BUN/Creatinine Ratio 18.3 (6-22) 04/24/18 14:15 Glucose 117 mg/dL (80-110) H 04/24/18 14:15 Calcium 8.7 mg/dL (8.4-10.2) 04/24/18 14:15 Total Bilirubin 0.4 mg/dL (0.2-1.3) 04/24/18 14:15 AST 31 IU/L (14-36) 04/24/18 14:15 ALT 27 IU/L (9-52) 04/24/18 14:15 Alkaline Phosphatase 93 U/L (38-126) 04/24/18 14:15 Lactate Dehydrogenase 541 U/L (313-618) 04/24/18 14:15 Total Protein 6.7 g/dL (6.3-8.2) 04/24/18 14:15 Albumin 3.8 g/dL (3.5-5.0) 04/24/18 14:15 Globulin 2.9 g/dL (1.7-4.1) 04/24/18 14:15 Albumin/Globulin Ratio 1.3 (1.0-2.8) 04/24/18 14:15 - Imaging Additional studies: PET CT, reviewed, both images and report. Assessment and Plan (1) Hodgkins lymphoma Problem details: 1. Stage IV classical HD, diagnosed after skin punch biopsy of a lesion on the right superior upper chest on 05/15/2016. CT and PET scan staging showed extensive multiple superfical soft tissues of the skin and retroperitoneal lymphadenpathy 2. Patient received ABVD from 06/12/2016 through 12/04/2016. After 2 cycles, she had [place] 1 PET response, bleomycin was discontinued. Assessment and Plan: Today I reviewed the PET-CT images as well as the report with the patient and her friend. I also reviewed the bone marrow aspiration biopsy hematopathology report with the patient and her friend. Overall speaking that the PET-CT showed involvement or recurrence of lymphoma affecting the mediastinum lymph nodes as well as mesenteric and retroperitoneal lymph nodes. Given that it is involved on both sides of the diaphragm, it is at least stage III. I also talked with the patient that the bone marrow aspiration biopsy did not see any evidence of involvement by the follicular lymphoma or the Hodgkin's lymphoma. I talked with the patient that it is important to differentiate between follicular lymphoma recurrence or transformation and Hodgkin's lymphoma recurrence. Patient has already scheduled CT-guided biopsy of retroperitoneal lymph nodes tomorrow. And I will schedule the patient to come back to see me in 2-3 weeks. (2) Follicular lymphoma Problem details: Follicular lymphoma diagnosed by needle core biopsy of retroperitoneal lymph nodes on 12/27/2008 that showed atypical lymphoid infiltrate most consistent with follicular lymphoma. 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 FLIPI score was 2. She was consulted at [facility] and active surveillance was recommended. Until now there has been no evidence to suggest recurrence or transformation of her underlying follicular lymphoma. Assessment and Plan: Please see the discussion above.
[2018-04-24 15:05] VITALS: BP 124/68; PULSE 91; RESP 16; TEMP 36.8; O2SAT 99
--- NOTE | 2018-04-24 15:22 | P.PNONC_ITS ---
PN -Subjective Interval history: 72-year-old female with history Hodgkin's lymphoma and low-grade follicular lymphoma now here for scheduled follow-up. Patient reported that since February of 2018, patient has been having nonproductive cough. In addition patient has mild night sweats. 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 When she turns around that may help relieving the stiffness. In addition during the past 2 weeks, she has noticed fullness of the abdomen as well as gases abdomen. She said it was uncomfortable and bloating. She has not noticed any skin rashes or nodules. On 04/10/2018 patient underwent a bone marrow aspiration biopsy. The hematopathology showed no involvement by lymphoma either follicular or Hodgkin' s. Patient underwent PET CT on 04/16/2018. The PET-CT showed hypermetabolic lymph nodes in the posterior mediastinum consistent with recurrent lymphoma ( [place] scale 5) and hypermetabolic retroperitoneal and mesenteric lymph nodes consistent with recurrent lymphoma (Deauville scale 5) Patient is scheduled for a CT-guided biopsy of the left retroperitoneal lymph nodes tomorrow. Oncology History Her follicular lymphoma was diagnosed after core needle biopsy of retroperitoneal lymph nodes on 12/27/2008 that showed atypical lymphoid infiltrate most consistent with follicular lymphoma. 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 FLIPI score was 2. She was consulted at [facility] and active surveillance was recommended. Her Hodgkin's lymphoma was diagnosed after skin punch biopsy of the lesion on the right superior upper chest on 05/15/2016 which showed classical Hodgkin's lymphoma involving deep dermis and subcutaneous tissue. Her initial presentation was characterized by raised skin plaques affecting the upper trunk and the facial area. Staging CT scan on 05/30/2016 showed multiple, diffuse, superficial soft tissue nodules (anterior left ear, right ear, upper back, posterior right shoulder, sternoclavicular notch, right lateral aspect of the upper breast, posterior to left scapular and anterior aspect of the right chest wall). The conglomerate adenopathy at the retrocrural and periaortic level overall smaller compared to previous scan reflecting follicular lymphoma. PET- CT on 06/13/2016 showed multiple cutaneous hypermetabolic lesions ([place] 5) involving bilateral neck, just above the right mandibular angle, anterior neck supercial to the thyroid cartilage, chest wall, shoulders and upper arms bilaterally, small left axillary lymph node, extensive retroperitoneal lymphadenpathy most prominent for a bulky left para-aortic lymph nodes measuring 28 x 36 x 75 mm with SUV 11.7, left internal an dexternal iliac lymphadenopathy, right pelvis, cutaneous nodules in the posterior low back and buttocks, Her HD was therefore deemed stage IV. Patient received ABVD from 2016 through 12/04/2016. After 2 cycles, she had [place] 1 PET response, bleomycin was discontinued. After treatment patient has been on active surveillance. Her CT scan in June of 2017 did not show any evidence of disease recurrence or metastasis. And retroperitoneal lymph nodes were shrinking in size. In early 02/2018, she developed mild night sweats and dry cough. Therefore patient underwent CT scan of the chest abdomen and pelvis on 03/31/2018. The scan showed interval marked increase in the size of retroperitoneal lymphadenopathy most prominent in the left para-aortic space, mildly increased retro esophageal lymph node sizes and measures up to 12 mm in short axis diameter, by basilar scarring in the lungs and no gross mesenteric adenopathy. - Patient Self-Reported Symptoms SR Constitution: Night Sweats SR ears, nose, mouth, throat issues: Cough SR respiratory issues: Cough - Additional ROS All systems PM: reviewed and no additional remarkable complaints except as stated Home Medications and Allergies Home Medications Medication Instructions Recorded Confirmed Type B.ANI/L.ACI/L.MIS/L.PLAN/L.SILAS 1 cap PO Q DAY #0 07/04/12 04/04/18 History (Probiotic Formula Capsule) CA PANTOTHENATE/FOLIC ACID/VIT 1 tab PO QDAY #0 07/04/12 04/04/18 History (MULTIVITAMIN) Coenzyme Q10 (#COQ10) 250 mg PO DAILY #0 07/04/12 04/04/18 History diltiazem CD 180 mg 180 mg PO QDAY #90 cap 04/01/18 04/04/18 Rx capsule,extended release 24 hr Allergies Allergy/AdvReac Type Severity Reaction Status Date / Time NSAIDS (Non-Steroidal Allergy Intermediate HIVES Verified 04/04/18 11:35 Anti-Inflamma [NSAIDS (NON-STEROIDAL ANTI-INFLAMMA] amoxicillin [AMOXICILLIN] Allergy Mild rash Verified 04/04/18 11:35 Exam Vital signs: Last Vital Signs Temp 98.3 F 04/24/18 15:05 Pulse 91 H 04/24/18 15:05 Resp 16 04/24/18 15:05 BP 124/68 04/24/18 15:05 Pulse Ox 99 04/24/18 15:05 ECOG 1 Narrative: Constitutional: WDWN, NAD, thin, well groomed, pleasant and cooperative. HEENT: NCAT, EOMI, PERRLA, anicteric sclera. Neck: Supple, symmetrical, and tracheal midline; No palpable thyromegaly and no palpable lymph nodes. Respiratory: No use of accessory muscles. Clear to auscultation, and no wheezes or rales or rubs. Cardiovascular: Regular rate and rhythm, S1 and S2 normal, no murmurs gallops or rubs. No JVD. No pitting edema of lower extremities. Abdomen: Soft, nontender, non-distended, bowel sounds normal, no palpable organomegaly, no hernia, no palpable masses. Lower extremities: No palpable pedal edema. Lymphatic: no palpable lymph nodes in the neck, axillae, or groins. Musculoskeletal: normal gait and station, no clubbing, no cyanosis, no pitting edema. Skin: no rashes, no ulcers, no petechiae Neurological: Awake and alert and oriented x3. CN II-XII grossly intact. No focal motor or sensory deficit. Psychiatric: Good judgment, good insight, normal affect, normal thought process , cooperative, no depression, no anxiety. Results - Labs Laboratory Last Values WBC 12.7 X10^3/uL (4.5-11.0) H 04/24/18 14:15 RBC 4.07 X10^6/uL (4.0-5.2) 04/24/18 14:15 Hgb 11.6 g/dL (12.0-16.0) L 04/24/18 14:15 Hct 35.8 % (36-46) L 04/24/18 14:15 MCV 88.0 fL (80-100) 04/24/18 14:15 MCH 28.6 PG (26-34) 04/24/18 14:15 MCHC 32.5 % (30-36) 04/24/18 14:15 RDW 13.7 % (11.6-14.8) 04/24/18 14:15 Plt Count 254 X10^3/uL (150-400) 04/24/18 14:15 Neut % (Auto) 84.0 % (50-75) H 04/24/18 14:15 Lymph % (Auto) 9.1 % (25-40) L 04/24/18 14:15 [place] % (Auto) 6.0 % (3-14) 04/24/18 14:15 Eos % (Auto) 0.2 % (2-4) L 04/24/18 14:15 Baso % (Auto) 0.7 % (0-2) 04/24/18 14:15 Neut # (Auto) 99450 /uL (2050-6758) H 04/24/18 14:15 Lymph # (Auto) 1100 /uL (0665-0527) 04/24/18 14:15 [place] # (Auto) 800 /uL (0-900) 04/24/18 14:15 Eos # (Auto) 0 /uL (0-450) 04/24/18 14:15 Baso # (Auto) 100 /uL (0-100) 04/24/18 14:15 Sodium 136 mmol/L (137-145) L 04/24/18 14:15 Potassium 3.4 mmol/L (3.4-5.1) 04/24/18 14:15 Chloride 100 mmol/L (98-107) 04/24/18 14:15 Carbon Dioxide 28 mmol/L (22-32) 04/24/18 14:15 BUN 11 mg/dL (7-17) 04/24/18 14:15 Creatinine 0.60 mg/dL (0.52-1.04) 04/24/18 14:15 Estimated GFR > 60.0 mL/min (>60) 04/24/18 14:15 BUN/Creatinine Ratio 18.3 (6-22) 04/24/18 14:15 Glucose 117 mg/dL (80-110) H 04/24/18 14:15 Calcium 8.7 mg/dL (8.4-10.2) 04/24/18 14:15 Total Bilirubin 0.4 mg/dL (0.2-1.3) 04/24/18 14:15 AST 31 IU/L (14-36) 04/24/18 14:15 ALT 27 IU/L (9-52) 04/24/18 14:15 Alkaline Phosphatase 93 U/L (38-126) 04/24/18 14:15 Lactate Dehydrogenase 541 U/L (313-618) 04/24/18 14:15 Total Protein 6.7 g/dL (6.3-8.2) 04/24/18 14:15 Albumin 3.8 g/dL (3.5-5.0) 04/24/18 14:15 Globulin 2.9 g/dL (1.7-4.1) 04/24/18 14:15 Albumin/Globulin Ratio 1.3 (1.0-2.8) 04/24/18 14:15 - Imaging Additional studies: PET CT, reviewed, both images and report. Assessment and Plan (1) Hodgkins lymphoma Problem details: 1. Stage IV classical HD, diagnosed after skin punch biopsy of a lesion on the right superior upper chest on 05/15/2016. CT and PET scan staging showed extensive multiple superfical soft tissues of the skin and retroperitoneal lymphadenpathy 2. Patient received ABVD from 06/12/2016 through 12/04/2016. After 2 cycles, she had [place] 1 PET response, bleomycin was discontinued. Assessment and Plan: Today I reviewed the PET-CT images as well as the report with the patient and her friend. I also reviewed the bone marrow aspiration biopsy hematopathology report with the patient and her friend. Overall speaking that the PET-CT showed involvement or recurrence of lymphoma affecting the mediastinum lymph nodes as well as mesenteric and retroperitoneal lymph nodes. Given that it is involved on both sides of the diaphragm, it is at least stage III. I also talked with the patient that the bone marrow aspiration biopsy did not see any evidence of involvement by the follicular lymphoma or the Hodgkin's lymphoma. I talked with the patient that it is important to differentiate between follicular lymphoma recurrence or transformation and Hodgkin's lymphoma recurrence. Patient has already scheduled CT-guided biopsy of retroperitoneal lymph nodes tomorrow. And I will schedule the patient to come back to see me in 2-3 weeks. (2) Follicular lymphoma Problem details: Follicular lymphoma diagnosed by needle core biopsy of retroperitoneal lymph nodes on 12/27/2008 that showed atypical lymphoid infiltrate most consistent with follicular lymphoma. He also had bone marrow aspiration and biopsy were performed on 12/24/2008 that showed normal cellular marrow with low level involvement by follicular lymphoma positive for t(14:18)( q32:q21) involving the BCL2 chain by FISH. FLIPI score was 2. She was consulted at [facility] and active surveillance was recommended. Until now there has been no evidence to suggest recurrence or transformation of her underlying follicular lymphoma. Assessment and Plan: Please see the discussion above.
--- NOTE | 2018-04-28 11:05 | ONC.APRN.PN ---
PN -Subjective Interval history: 72-year-old female with history Hodgkin's lymphoma and low-grade follicular lymphoma presents today for urgent same day visit. the pt is reporting night sweats also fever at night the last few nights with Tmax of 101.6. Fever has been responsive to tylenol 1 gram. Patient denies feeling constitutionally sick. She does have a cough however this is not new. It is a dry intermittent cough. No shortness of breath. No malaise. No myalgias or arthralgia. No fever during the day. No hematuria or dysuria. Patient underwent CT-guided biopsy of left retroperitoneal lymph node April 25. She states symptoms started shortly thereafter. Biopsy site is without tenderness. Patient reports there has been no skin changes in that area, no drainage. Aside from abd bloating no new lumps or bumps. Pt has appointment with Dr carey May 12 to review pathology and likely initiate chemotherapy. On 04/10/2018 patient underwent a bone marrow aspiration biopsy. The hematopathology showed no involvement by lymphoma either follicular or Hodgkin's. Patient underwent PET CT on 04/16/2018. The PET-CT showed hypermetabolic lymph nodes in the posterior mediastinum consistent with recurrent lymphoma (Deauville scale 5) and hypermetabolic retroperitoneal and mesenteric lymph nodes consistent with recurrent lymphoma (Deauville scale 5) Oncology History Her follicular lymphoma was diagnosed after core needle biopsy of retroperitoneal lymph nodes on 12/27/2008 that showed atypical lymphoid infiltrate most consistent with follicular lymphoma. 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 FLIPI score was 2. She was consulted at [facility] and active surveillance was recommended. Her Hodgkin's lymphoma was diagnosed after skin punch biopsy of the lesion on the right superior upper chest on 05/15/2016 which showed classical Hodgkin's lymphoma involving deep dermis and subcutaneous tissue. Her initial presentation was characterized by raised skin plaques affecting the upper trunk and the facial area. Staging CT scan on 05/30/2016 showed multiple, diffuse, superficial soft tissue nodules (anterior left ear, right ear, upper back, posterior right shoulder, sternoclavicular notch, right lateral aspect of the upper breast, posterior to left scapular and anterior aspect of the right chest wall). The conglomerate adenopathy at the retrocrural and periaortic level overall smaller compared to previous scan reflecting follicular lymphoma. PET-CT on 06/13/2016 showed multiple cutaneous hypermetabolic lesions ([place] 5) involving bilateral neck, just above the right mandibular angle, anterior neck supercial to the thyroid cartilage, chest wall, shoulders and upper arms bilaterally, small left axillary lymph node, extensive retroperitoneal lymphadenpathy most prominent for a bulky left para-aortic lymph nodes measuring 28 x 36 x 75 mm with SUV 11.7, left internal an dexternal iliac lymphadenopathy, right pelvis, cutaneous nodules in the posterior low back and buttocks, Her HD was therefore deemed stage IV. Patient received ABVD from 06/12/2016 through 12/04/2016. After 2 cycles, she had [place] 1 PET response, bleomycin was discontinued. After treatment patient has been on active surveillance. Her CT scan in June of 2017 did not show any evidence of disease recurrence or metastasis. And retroperitoneal lymph nodes were shrinking in size. In early 02/2018, she developed mild night sweats and dry cough. Therefore patient underwent CT scan of the chest abdomen and pelvis on 03/31/2018. The scan showed interval marked increase in the size of retroperitoneal lymphadenopathy most prominent in the left para-aortic space, mildly increased retro esophageal lymph node sizes and measures up to 12 mm in short axis diameter, by basilar scarring in the lungs and no gross mesenteric adenopathy. - Patient Self-Reported Symptoms SR Constitution: Night Sweats SR ears, nose, mouth, throat issues: Cough SR respiratory issues: Cough SR Gastrointestinal issues: Change in bowel pattern Home Medications and Allergies Home Medications Medication Instructions Recorded Confirmed Type B.ANI/L.ACI/L.MIS/L.PLAN/L.SILAS 2 cap PO Q DAY #0 07/04/12 04/25/18 History (Probiotic Formula Capsule) CA PANTOTHENATE/FOLIC ACID/VIT 1 tab PO DAILY #0 07/04/12 04/25/18 History (MULTIVITAMIN) Coenzyme Q10 (#COQ10) 250 mg PO DAILY #0 07/04/12 04/25/18 History diltiazem CD 180 mg 180 mg PO QDAY #90 cap 04/01/18 04/25/18 Rx capsule,extended release 24 hr Allergies Allergy/AdvReac Type Severity Reaction Status Date / Time NSAIDS (Non-Steroidal Allergy Intermediate HIVES Verified 04/25/18 09:15 Anti-Inflamma [NSAIDS (NON-STEROIDAL ANTI-INFLAMMA] amoxicillin [AMOXICILLIN] Allergy Mild rash Verified 04/25/18 09:15 Exam - Constitutional positive no acute distress, positive thin - Routine HEENT Exam Head: Present: normocephalic, atraumatic Eye: Present: conjunctivae pink. Absent: conjunctival icterus, scleral injection ENT: Present: mucous membranes moist, oropharynx clear - Routine Neck Exam Present: supple. Absent: lymphadenopathy - Routine Chest/Breast/Axilla Exam Axillae: Absent: lymphadenopathy, mass, tenderness - Routine Respiratory Exam Present: Clear to auscultation bilaterally. Absent: rales, rhonchi, wheezes - Routine Cardiovascular Exam Present: RRR, S1, S2. Absent: murmur, gallop, rubs, JVD - Routine Abdominal Exam Present: soft, normoactive bowel sounds, distended, mass. Absent: tenderness, rebound, guarding Palpation/Percussion: Absent: fluid waves Comments: no palpable inguinal adenopathy - Routine Extremities Exam Absent: edema, calf tenderness - Routine Skin Exam Absent: erythema, petechiae, rash - Routine Neurological Exam Present: alert, oriented X3 - Routine Psychiatric Exam Present: normal affect Results - Labs Laboratory Last Values WBC 12.7 X10^3/uL (4.5-11.0) H 04/24/18 14:15 RBC 4.07 X10^6/uL (4.0-5.2) 04/24/18 14:15 Hgb 11.6 g/dL (12.0-16.0) L 04/24/18 14:15 Hct 35.8 % (36-46) L 04/24/18 14:15 MCV 88.0 fL (80-100) 04/24/18 14:15 MCH 28.6 PG (26-34) 04/24/18 14:15 MCHC 32.5 % (30-36) 04/24/18 14:15 RDW 13.7 % (11.6-14.8) 04/24/18 14:15 Plt Count 254 X10^3/uL (150-400) 04/24/18 14:15 Neut % (Auto) 84.0 % (50-75) H 04/24/18 14:15 Lymph % (Auto) 9.1 % (25-40) L 04/24/18 14:15 [place] % (Auto) 6.0 % (3-14) 04/24/18 14:15 Eos % (Auto) 0.2 % (2-4) L 04/24/18 14:15 Baso % (Auto) 0.7 % (0-2) 04/24/18 14:15 Neut # (Auto) 49690 /uL (4778-7481) H 04/24/18 14:15 Lymph # (Auto) 1100 /uL (1914-5113) 04/24/18 14:15 [place] # (Auto) 800 /uL (0-900) 04/24/18 14:15 Eos # (Auto) 0 /uL (0-450) 04/24/18 14:15 Baso # (Auto) 100 /uL (0-100) 04/24/18 14:15 PT 14.2 SECONDS (10.1-12.7) H 04/24/18 14:15 INR 1.2 (0.9-1.3) 04/24/18 14:15 Sodium 136 mmol/L (137-145) L 04/24/18 14:15 Potassium 3.4 mmol/L (3.4-5.1) 04/24/18 14:15 Chloride 100 mmol/L (98-107) 04/24/18 14:15 Carbon Dioxide 28 mmol/L (22-32) 04/24/18 14:15 BUN 11 mg/dL (7-17) 04/24/18 14:15 Creatinine 0.60 mg/dL (0.52-1.04) 04/24/18 14:15 Estimated GFR > 60.0 mL/min (>60) 04/24/18 14:15 BUN/Creatinine Ratio 18.3 (6-22) 04/24/18 14:15 Glucose 117 mg/dL (80-110) H 04/24/18 14:15 Calcium 8.7 mg/dL (8.4-10.2) 04/24/18 14:15 Total Bilirubin 0.4 mg/dL (0.2-1.3) 04/24/18 14:15 AST 31 IU/L (14-36) 04/24/18 14:15 ALT 27 IU/L (9-52) 04/24/18 14:15 Alkaline Phosphatase 93 U/L (38-126) 04/24/18 14:15 Lactate Dehydrogenase 541 U/L (313-618) 04/24/18 14:15 Total Protein 6.7 g/dL (6.3-8.2) 04/24/18 14:15 Albumin 3.8 g/dL (3.5-5.0) 04/24/18 14:15 Globulin 2.9 g/dL (1.7-4.1) 04/24/18 14:15 Albumin/Globulin Ratio 1.3 (1.0-2.8) 04/24/18 14:15 Assessment and Plan (1) Hodgkins lymphoma Problem details: 1. Stage IV classical HD, diagnosed after skin punch biopsy of a lesion on the right superior upper chest on 05/15/2016. CT and PET scan staging showed extensive multiple superfical soft tissues of the skin and retroperitoneal lymphadenpathy 2. Patient received ABVD from 06/12/2016 through 12/04/2016. After 2 cycles, she had [place] 1 PET response, bleomycin was discontinued. Assessment and Plan: Previously Dr Carey reviewed the PET-CT images as well as the report with the patient and her friend. he also reviewed the bone marrow aspiration biopsy hematopathology report with the patient and her friend. Overall speaking that the PET-CT showed involvement or recurrence of lymphoma affecting the mediastinum lymph nodes as well as mesenteric and retroperitoneal lymph nodes. Given that it is involved on both sides of the diaphragm, it is at least stage III. I also talked with the patient that the bone marrow aspiration biopsy did not see any evidence of involvement by the follicular lymphoma or the Hodgkin's lymphoma. Dr Carey talked with the patient that it is important to differentiate between follicular lymphoma recurrence or transformation and Hodgkin's lymphoma recurrence. Awaiting results of retroperitoneal lymph node biopsy which was done April 25. Patient has an appointment May 12 to review results and hopefully initiate therapy I will try to get the patient a sooner appointment with oncologist Dr Carey. (2) Follicular lymphoma Problem details: Follicular lymphoma diagnosed by needle core biopsy of retroperitoneal lymph nodes on 12/27/2008 that showed atypical lymphoid infiltrate most consistent with follicular lymphoma. 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 FLIPI score was 2. She was consulted at [facility] and active surveillance was recommended. Until now there has been no evidence to suggest recurrence or transformation of her underlying follicular lymphoma. Assessment and Plan: Please see the discussion above. (3) Night sweat Current visit: Yes Status: Acute Unfortunately Due to Lymphoma recurrence. These do seem to be getting worse the last several days, also associate with fever at night. I do believe etiology remains lymphoma as patient has no constitutional symptoms. She has no fever during the day. She does have a infrequent dry cough however this is not new. Exam is largely unremarkable aside from abdominal masses. I will go ahead and draw a CBC we will also check 1 set of blood cultures. Very low suspicion for post obstruction pneumonia noting posterior mediastinal enlarged lymph nodes. For any worsening cough or constitutional symptoms, fever during the day we will evaluate further. Patient agrees with the above plan of care. I will also try to get the patient in sooner than May [address] Carey for biopsy results and to lay out treatment plan.
[2018-04-28 11:13] VITALS: BP 122/73; PULSE 84; RESP 18; TEMP 36.8; O2SAT 99
[2018-04-28 12:41] LABS: Add Manual Diff / Slide Review NO; Basophils Absolute Auto 100 /uL (0-100); Basophils Percent Auto 0.7 % (0-2); Eosinophils Absolute Auto 100 /uL (0-450); Eosinophils Percent Auto 0.8 % (2-4); Hematocrit 36.6 % (36-46); Hemoglobin 11.7 g/dL (12.0-16.0); Lymphocytes Absolute Auto 1100 /uL (1100-4500); Lymphocytes Percent Auto 9.4 % (25-40); Mean Corpuscular HGB Conc 32.1 % (30-36); Mean Corpuscular Hemoglobin 27.7 PG (26-34); Mean Corpuscular Volume 86.6 fL (80-100); Monocytes Absolute Auto 700 /uL (0-900); Monocytes Percent Auto 6.2 % (3-14); Neutrophils Absolute Auto 9600 /uL (1500-7000); Neutrophils Percent Auto 82.9 % (50-75); Platelet Count 312 X10^3/uL (150-400); Red Blood Cell Count 4.23 X10^6/uL (4.0-5.2); Red Cell Distribution Width 13.7 % (11.6-14.8); White Blood Cell Count 11.6 X10^3/uL (4.5-11.0)
[2018-04-28 12:56] LABS: Alanine Aminotransferase 26 IU/L (9-52); Albumin 4.5 g/dL (3.5-5.0); Albumin Globulin Ratio 1.3 (1.0-2.8); Alkaline Phosphatase 119 U/L (38-126); Aspartate Aminotransferase 31 IU/L (14-36); Bilirubin Total 0.5 mg/dL (0.2-1.3); Blood Urea Nitrogen 11 mg/dL (7-17); Calcium 9.8 mg/dL (8.4-10.2); Carbon Dioxide 27 mmol/L (22-32); Chloride 100 mmol/L (98-107); Estimated Glomerular Filt Rate > 60.0 mL/min (>60); Globulin 3.6 g/dL (1.7-4.1); Glucose 100 mg/dL (80-110); HEMOLYSIS < 15 (0-50); Potassium 3.6 mmol/L (3.4-5.1); Sodium 139 mmol/L (137-145); Total Protein 8.1 g/dL (6.3-8.2)
--- NOTE | 2018-04-28 16:39 | PC.NURSE ---
LABS APPEAR STABLE. WBC''S ARE ELEVATED BUT DOWN FROM PREVIOUS RESULTS. SEES DR WELDON ON 05.08
[2018-05-08 16:34] VITALS: BP 135/85; PULSE 93; RESP 18; TEMP 37.1; O2SAT 98
--- NOTE | 2018-05-08 16:36 | ONC.PN ---
PN -Subjective Interval history: 72-year-old female with history Hodgkin's lymphoma and low-grade follicular lymphoma presents. She presents today for scheduled follow-up and to review the CT-guided biopsy results. Patient underwent CT-guided biopsy of left retroperitoneal lymph node April 25, 2018. And the pathology showed classic Hodgkin's lymphoma. In the comment, it mentioned that the morphologic and immunohistochemical features are compatible with classic Hodgkin's lymphoma. Features are suggestive of but not definitively diagnostic for nodular sclerosis subtype of classical Hodgkin's lymphoma. There is no evidence of an atypical CD10 positive population by immunohistochemical or by flow cytometric analysis (follicular lymphoma was a clinical consideration). Concomitant flow cytometric analysis was without evidence of an atypical B-cell, T-cell or NK cell population. After the biopsy, on the same day, patient started to have nightly fever and drenching night sweats. The temperature at some point was as high as 102. In addition patient has had significant weight loss during the past 2 weeks. She lost about 3-4 lb. Otherwise patient reports good appetite. Patient reports some mild dry cough especially when she is taking a deep breath. No chest pain and no shortness of breath. He denies any worsening abdominal pain. She denies any diarrhea or constipation. Oncology History Her follicular lymphoma was diagnosed after core needle biopsy of retroperitoneal lymph nodes on 12/27/2008 that showed atypical lymphoid infiltrate most consistent with follicular lymphoma. 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 FLIPI score was 2. She was consulted at [facility] and active surveillance was recommended. Her Hodgkin's lymphoma was diagnosed after skin punch biopsy of the lesion on the right superior upper chest on 05/15/2016 which showed classical Hodgkin's lymphoma involving deep dermis and subcutaneous tissue. Her initial presentation was characterized by raised skin plaques affecting the upper trunk and the facial area. Staging CT scan on 05/30/2016 showed multiple, diffuse, superficial soft tissue nodules (anterior left ear, right ear, upper back, posterior right shoulder, sternoclavicular notch, right lateral aspect of the upper breast, posterior to left scapular and anterior aspect of the right chest wall). The conglomerate adenopathy at the retrocrural and periaortic level overall smaller compared to previous scan reflecting follicular lymphoma. PET-CT on 06/13/2016 showed multiple cutaneous hypermetabolic lesions ([place] 5) involving bilateral neck, just above the right mandibular angle, anterior neck supercial to the thyroid cartilage, chest wall, shoulders and upper arms bilaterally, small left axillary lymph node, extensive retroperitoneal lymphadenpathy most prominent for a bulky left para-aortic lymph nodes measuring 28 x 36 x 75 mm with SUV 11.7, left internal an dexternal iliac lymphadenopathy, right pelvis, cutaneous nodules in the posterior low back and buttocks, Her HD was therefore deemed stage IV. Patient received ABVD from 06/12/2016 through 12/04/2016. After 2 cycles, she had [place] 1 PET response, bleomycin was discontinued. After treatment patient has been on active surveillance. Her CT scan in June of 2017 did not show any evidence of disease recurrence or metastasis. And retroperitoneal lymph nodes were shrinking in size. In early 02/2018, she developed mild night sweats and dry cough. Therefore patient underwent CT scan of the chest abdomen and pelvis on 03/31/2018. The scan showed interval marked increase in the size of retroperitoneal lymphadenopathy most prominent in the left para-aortic space, mildly increased retro esophageal lymph node sizes and measures up to 12 mm in short axis diameter, by basilar scarring in the lungs and no gross mesenteric adenopathy. On 04/10/2018 patient underwent a bone marrow aspiration biopsy. The hematopathology showed no involvement by lymphoma either follicular or Hodgkin's. Patient underwent PET CT on 04/16/2018. The PET-CT showed hypermetabolic lymph nodes in the posterior mediastinum consistent with recurrent lymphoma (Deauville scale 5) and hypermetabolic retroperitoneal and mesenteric lymph nodes consistent with recurrent lymphoma (Deauville scale 5) - Patient Self-Reported Symptoms SR Constitution: Fever, Night Sweats SR ears, nose, mouth, throat issues: Cough SR respiratory issues: Cough SR Gastrointestinal issues: Change in bowel pattern - Additional ROS All systems PM: reviewed and no additional remarkable complaints except as stated Home Medications and Allergies Home Medications Medication Instructions Recorded Confirmed Type B.ANI/L.ACI/L.MIS/L.PLAN/L.SILAS 2 cap PO Q DAY #0 07/04/12 04/25/18 History (Probiotic Formula Capsule) CA PANTOTHENATE/FOLIC ACID/VIT 1 tab PO DAILY #0 07/04/12 04/25/18 History (MULTIVITAMIN) Coenzyme Q10 (#COQ10) 250 mg PO DAILY #0 07/04/12 04/25/18 History diltiazem CD 180 mg 180 mg PO QDAY #90 cap 04/01/18 04/25/18 Rx capsule,extended release 24 hr ciprofloxacin HCl 500 mg PO Q12H #10 tab 04/28/18 Rx Allergies Allergy/AdvReac Type Severity Reaction Status Date / Time NSAIDS (Non-Steroidal Allergy Intermediate HIVES Verified 04/25/18 09:15 Anti-Inflamma [NSAIDS (NON-STEROIDAL ANTI-INFLAMMA] amoxicillin [AMOXICILLIN] Allergy Mild rash Verified 04/25/18 09:15 Exam Vital signs: Last Vital Signs Temp 98.7 F 05/08/18 16:34 Pulse 93 H 05/08/18 16:34 Resp 18 05/08/18 16:34 BP 135/85 05/08/18 16:34 Pulse Ox 98 05/08/18 16:34 ECOG 1 Narrative: Constitutional: WDWN, NAD, thin, well groomed, pleasant and cooperative. Accompanied by her friend. HEENT: NCAT, EOMI, PERRLA, anicteric sclera. Neck: Supple, symmetrical, and tracheal midline; No palpable thyromegaly and no palpable lymph nodes. Respiratory: No use of accessory muscles. Clear to auscultation, and no wheezes or rales or rubs. Cardiovascular: Regular rate and rhythm, S1 and S2 normal, no murmurs gallops or rubs. No JVD. No pitting edema of lower extremities. Abdomen: Soft, nontender, non-distended, bowel sounds normal, no palpable organomegaly, no hernia, no palpable masses. Lower extremities: No palpable pedal edema. Lymphatic: no palpable lymph nodes in the neck, axillae, or groins. Musculoskeletal: normal gait and station, no clubbing, no cyanosis, no pitting edema. Skin: no rashes, no ulcers, no petechiae Neurological: Awake and alert and oriented x3. CN II-XII grossly intact. No focal motor or sensory deficit. Psychiatric: Good judgment, good insight, normal affect, normal thought process, cooperative, no depression, no anxiety. Results - Labs Laboratory Last Values WBC 11.6 X10^3/uL (4.5-11.0) H 04/28/18 12:25 RBC 4.23 X10^6/uL (4.0-5.2) 04/28/18 12:25 Hgb 11.7 g/dL (12.0-16.0) L 04/28/18 12:25 Hct 36.6 % (36-46) 04/28/18 12:25 MCV 86.6 fL (80-100) 04/28/18 12:25 MCH 27.7 PG (26-34) 04/28/18 12:25 MCHC 32.1 % (30-36) 04/28/18 12:25 RDW 13.7 % (11.6-14.8) 04/28/18 12:25 Plt Count 312 X10^3/uL (150-400) 04/28/18 12:25 Neut % (Auto) 82.9 % (50-75) H 04/28/18 12:25 Lymph % (Auto) 9.4 % (25-40) L 04/28/18 12:25 [place] % (Auto) 6.2 % (3-14) 04/28/18 12:25 Eos % (Auto) 0.8 % (2-4) L 04/28/18 12:25 Baso % (Auto) 0.7 % (0-2) 04/28/18 12:25 Neut # (Auto) 9600 /uL (3265-6796) H 04/28/18 12:25 Lymph # (Auto) 1100 /uL (2537-9723) 04/28/18 12:25 [place] # (Auto) 700 /uL (0-900) 04/28/18 12:25 Eos # (Auto) 100 /uL (0-450) 04/28/18 12:25 Baso # (Auto) 100 /uL (0-100) 04/28/18 12:25 PT 14.2 SECONDS (10.1-12.7) H 04/24/18 14:15 INR 1.2 (0.9-1.3) 04/24/18 14:15 Sodium 139 mmol/L (137-145) 04/28/18 12:25 Potassium 3.6 mmol/L (3.4-5.1) 04/28/18 12:25 Chloride 100 mmol/L (98-107) 04/28/18 12:25 Carbon Dioxide 27 mmol/L (22-32) 04/28/18 12:25 BUN 11 mg/dL (7-17) 04/28/18 12:25 Creatinine 0.50 mg/dL (0.52-1.04) L 04/28/18 12:25 Estimated GFR > 60.0 mL/min (>60) 04/28/18 12:25 BUN/Creatinine Ratio 22.0 (6-22) 04/28/18 12:25 Glucose 100 mg/dL (80-110) 04/28/18 12:25 Calcium 9.8 mg/dL (8.4-10.2) 04/28/18 12:25 Total Bilirubin 0.5 mg/dL (0.2-1.3) 04/28/18 12:25 AST 31 IU/L (14-36) 04/28/18 12:25 ALT 26 IU/L (9-52) 04/28/18 12:25 Alkaline Phosphatase 119 U/L (38-126) 04/28/18 12:25 Lactate Dehydrogenase 541 U/L (313-618) 04/24/18 14:15 Total Protein 8.1 g/dL (6.3-8.2) 04/28/18 12:25 Albumin 4.5 g/dL (3.5-5.0) 04/28/18 12:25 Globulin 3.6 g/dL (1.7-4.1) 04/28/18 12:25 Albumin/Globulin Ratio 1.3 (1.0-2.8) 04/28/18 12:25 Assessment and Plan (1) Hodgkins lymphoma in relapse Problem details: 1. Stage IV classical HD, diagnosed after skin punch biopsy of a lesion on the right superior upper chest on 05/15/2016. CT and PET scan staging showed extensive multiple superfical soft tissues of the skin and retroperitoneal lymphadenpathy 2. Patient received ABVD from 06/12/2016 through 12/04/2016. After 2 cycles, she had [place] 1 PET response, bleomycin was discontinued. 3. Replased in 02/2018, with B symptoms. Confirmed by CT guided retroperitoneal biopsy on 04/25/2018. Assessment: Today first of all, I reviewed the pathology report with the patient. The pathology showed classical Hodgkin's lymphoma. Patient's recent PET-CT showed that the extent of the hypermetabolic lymphadenopathy affects lymph nodes both above and below the diaphragm. The stage is thus stage III. Bone marrow aspiration and biopsy did not show any evidence of involvement by the Hodgkin's lymphoma or follicular lymphoma. Clinically patient also has significant B symptoms including fever, night sweats, and weight loss. Patient reported good appetite and on physical examination she does not appear toxic. Infection is very much unlikely. I discussed with the patient that for relapsed Hodgkin's lymphoma, I would recommend treatment with brentuximab vedotin which is an antibody drug conjugate (ADC). Clinical trials have showed the extent response to the brentuximab vedotin. In addition I talked with the patient about the potential side effects or complications associated with the use of brentuximab vedotin. Especially emphasized the possible neurological complications including motor neuropathy and foot drop. Patient requested a second opinion to Dr. Vick at [facility]. When the patient was initially diagnosed with Hodgkin's lymphoma, she was consulted by Dr. Dr. Vick Plan: 1. Referral to Dr. Bin Valencia for port placement 2. Referral to Dr. Vick at [facility] for second opinion 3. MUGA scan 4. Pre-auth: Brentuxmab [place]in 1.8 mg/kg every 21 days, consider in combination with Bendamustine (90/mg/m2) on day 1 and 2 of 21 day cycle for up to 6 cycles. 5. PFT 6. RTC MD visit on 05/22/2018, lab include: CBC, CMP, LDH, ESR, HBSAg, HBSAb, HBcAb (IgG/M), HBeAg. (2) Follicular lymphoma Problem details: Follicular lymphoma diagnosed by needle core biopsy of retroperitoneal lymph nodes on 12/27/2008 that showed atypical lymphoid infiltrate most consistent with follicular lymphoma. 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 FLIPI score was 2. She was consulted at [facility] and active surveillance was recommended. Until now there has been no evidence to suggest recurrence or transformation of her underlying follicular lymphoma. Assessment and Plan: No evidence of recurrence. The CT-guided biopsy of the retroperitoneal lymph node showed no evidence of follicular lymphoma.
[2018-05-15 16:51] LABS: Erythrocyte Sedimentation Rate 72 MM/HR (0-20)
[2018-05-15 17:28] LABS: Hepatitis B Surface Antigen NEGATIVE s/c (NEGATIVE)
[2018-05-15 17:44] LABS: Hep C Virus Ab w/Reflex Quant NEGATIVE s/c (NEGATIVE)
[2018-05-17 13:55] LABS: Hepatitis B Core Antibody Nonreactive (Nonreactive); Hepatitis B Core IgM Nonreactive (Nonreactive)
[2018-05-17 15:23] LABS: Hepatitis B Surf Ab Qualitativ Nonreactive (Nonreactive)
[2018-05-20 10:22] VITALS: BP 117/69; PULSE 98; RESP 18; TEMP 36.9; O2SAT 98
--- NOTE | 2018-05-20 10:48 | ONC.APRN.PN ---
PN -Subjective Interval history: 72-year-old female with history Hodgkin's lymphoma and low-grade follicular lymphoma presents now with recently confirmed relapsed classical Hodgkin's lymphoma. Two of her close friends accompany her today. Patient is here today to discuss her ?frustrations?. She states ?I have been sick since March how come nothing has happened?? Pt is scheduled for implanted port placement today,also scheduled to begin treatment may 22. We have obtained insurance pre auth for [employer]. The pt has had 2 visits to ED for SVT. She reports severe night sweats, fatigue, loss of appetite. She goes on to state When Dr Baker diagnosed me I had chemotherapy the very next day. Today she reports I feel bad, I am so tired and weak. States her heart has settled down. She denies chest pain, palpitations. Denies shortness of breath. Denies cough, fever, chills. She does continue with nightly sweats. She continues with fullness in her abdomen she is constipated. Appetite is diminished. No skin changes. She reports generalized discomfort ?all over?. No headaches. Patient underwent CT-guided biopsy of left retroperitoneal lymph node April 25, 2018. And the pathology showed classic Hodgkin's lymphoma. In the comment, it mentioned that the morphologic and immunohistochemical features are compatible with classic Hodgkin's lymphoma. Features are suggestive of but not definitively diagnostic for nodular sclerosis subtype of classical Hodgkin's lymphoma. There is no evidence of an atypical CD10 positive population by immunohistochemical or by flow cytometric analysis (follicular lymphoma was a clinical consideration). Concomitant flow cytometric analysis was without evidence of an atypical B-cell, T-cell or NK cell population. After the biopsy, on the same day, patient started to have nightly fever and drenching night sweats. The temperature at some point was as high as 102. In addition patient has had significant weight loss during the past 2 weeks. She lost about 3-4 lb. Otherwise patient reports good appetite. Patient reports some mild dry cough especially when she is taking a deep breath. No chest pain and no shortness of breath. He denies any worsening abdominal pain. She denies any diarrhea or constipation. Oncology History Her follicular lymphoma was diagnosed after core needle biopsy of retroperitoneal lymph nodes on 12/27/2008 that showed atypical lymphoid infiltrate most consistent with follicular lymphoma. 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 FLIPI score was 2. She was consulted at [facility] and active surveillance was recommended. Her Hodgkin's lymphoma was diagnosed after skin punch biopsy of the lesion on the right superior upper chest on 05/15/2016 which showed classical Hodgkin's lymphoma involving deep dermis and subcutaneous tissue. Her initial presentation was characterized by raised skin plaques affecting the upper trunk and the facial area. Staging CT scan on 05/30/2016 showed multiple, diffuse, superficial soft tissue nodules (anterior left ear, right ear, upper back, posterior right shoulder, sternoclavicular notch, right lateral aspect of the upper breast, posterior to left scapular and anterior aspect of the right chest wall). The conglomerate adenopathy at the retrocrural and periaortic level overall smaller compared to previous scan reflecting follicular lymphoma. PET-CT on 06/13/2016 showed multiple cutaneous hypermetabolic lesions ([place] 5) involving bilateral neck, just above the right mandibular angle, anterior neck supercial to the thyroid cartilage, chest wall, shoulders and upper arms bilaterally, small left axillary lymph node, extensive retroperitoneal lymphadenpathy most prominent for a bulky left para-aortic lymph nodes measuring 28 x 36 x 75 mm with SUV 11.7, left internal an dexternal iliac lymphadenopathy, right pelvis, cutaneous nodules in the posterior low back and buttocks, Her HD was therefore deemed stage IV. Patient received ABVD from 06/12/2016 through 12/04/2016. After 2 cycles, she had [place] 1 PET response, bleomycin was discontinued. After treatment patient has been on active surveillance. Her CT scan in June of 2017 did not show any evidence of disease recurrence or metastasis. And retroperitoneal lymph nodes were shrinking in size. In early 02/2018, she developed mild night sweats and dry cough. Therefore patient underwent CT scan of the chest abdomen and pelvis on 03/31/2018. The scan showed interval marked increase in the size of retroperitoneal lymphadenopathy most prominent in the left para-aortic space, mildly increased retro esophageal lymph node sizes and measures up to 12 mm in short axis diameter, by basilar scarring in the lungs and no gross mesenteric adenopathy. On 04/10/2018 patient underwent a bone marrow aspiration biopsy. The hematopathology showed no involvement by lymphoma either follicular or Hodgkin's. Patient underwent PET CT on 04/16/2018. The PET-CT showed hypermetabolic lymph nodes in the posterior mediastinum consistent with recurrent lymphoma ([place] scale 5) and hypermetabolic retroperitoneal and mesenteric lymph nodes consistent with recurrent lymphoma ([place] scale 5) - Patient Self-Reported Symptoms SR Constitution: Fever, Chills, Fatigue/Malaise, Night Sweats SR ears, nose, mouth, throat issues: Cough SR respiratory issues: Cough SR Cardiovascular issues: Palpitations SR Gastrointestinal issues: Change in bowel pattern SR Endocrine issues: Hot flashes Home Medications and Allergies Home Medications Medication Instructions Recorded Confirmed Type Probiotic 1 cap PO DAILY #0 07/04/12 05/19/18 History coQ10 (ubiquinol) 250 mg PO DAILY #0 07/04/12 05/19/18 History multivitamin 1 tab PO DAILY #0 07/04/12 05/19/18 History [place]-3 Fish Oil 1 cap PO DAILY 05/15/18 05/19/18 History Protandim 1 dose PO DAILY 05/15/18 05/19/18 History Vitamin D Liquid 1 dose TOPICAL DAILY 05/15/18 05/19/18 History diltiazem HCl [Cartia XT] 180 mg PO QPM 05/15/18 05/19/18 History levofloxacin [Levaquin] 750 mg PO DAILY 6 Days #6 tab 05/15/18 05/19/18 Rx Allergies Allergy/AdvReac Type Severity Reaction Status Date / Time NSAIDS (Non-Steroidal Allergy Intermediate HIVES Verified 05/19/18 13:19 Anti-Inflamma [NSAIDS (NON-STEROIDAL ANTI-INFLAMMA] amoxicillin [AMOXICILLIN] Allergy Mild rash Verified 05/19/18 13:19 Exam Vital signs: Vital Signs Temp Pulse Resp BP Pulse Ox 05/20/18 10:22 98.5 F 98 H 18 117/69 98 Intake and Output 05/19/18 05/20/18 05/20/18 23:59 07:59 15:59 Other: Weight 50.1 kg Patient Weight 05/21/18 07:59 Weight 50.1 kg - Constitutional positive no acute distress - Routine HEENT Exam Eye: Present: conjunctivae pink. Absent: conjunctival icterus, scleral injection ENT: Present: mucous membranes moist, oropharynx clear - Routine Neck Exam Present: supple. Absent: lymphadenopathy - Routine Chest/Breast/Axilla Exam Axillae: Absent: lymphadenopathy, mass, tenderness - Routine Respiratory Exam Present: Clear to auscultation bilaterally. Absent: rales, rhonchi, wheezes - Routine Cardiovascular Exam Present: RRR, S1, S2. Absent: murmur, gallop, rubs - Routine Abdominal Exam Present: soft, normoactive bowel sounds, distended. Absent: tenderness, rebound, guarding, firm, organomegaly - Routine Extremities Exam Absent: edema - Routine Neurological Exam Present: alert, oriented X3 - Routine Psychiatric Exam Present: normal affect Results - Labs Laboratory Last Values WBC 11.6 X10^3/uL (4.5-11.0) H 04/28/18 12:25 RBC 4.23 X10^6/uL (4.0-5.2) 04/28/18 12:25 Hgb 11.7 g/dL (12.0-16.0) L 04/28/18 12:25 Hct 36.6 % (36-46) 04/28/18 12:25 MCV 86.6 fL (80-100) 04/28/18 12:25 MCH 27.7 PG (26-34) 04/28/18 12:25 MCHC 32.1 % (30-36) 04/28/18 12:25 RDW 13.7 % (11.6-14.8) 04/28/18 12:25 Plt Count 312 X10^3/uL (150-400) 04/28/18 12:25 Neut % (Auto) 82.9 % (50-75) H 04/28/18 12:25 Lymph % (Auto) 9.4 % (25-40) L 04/28/18 12:25 Alexander % (Auto) 6.2 % (3-14) 04/28/18 12:25 Eos % (Auto) 0.8 % (2-4) L 04/28/18 12:25 Baso % (Auto) 0.7 % (0-2) 04/28/18 12:25 Neut # (Auto) 9600 /uL (8810-4942) H 04/28/18 12:25 Lymph # (Auto) 1100 /uL (2862-3243) 04/28/18 12:25 Alexander # (Auto) 700 /uL (0-900) 04/28/18 12:25 Eos # (Auto) 100 /uL (0-450) 04/28/18 12:25 Baso # (Auto) 100 /uL (0-100) 04/28/18 12:25 ESR 72 MM/HR (0-20) H 05/15/18 14:32 PT 14.2 SECONDS (10.1-12.7) H 04/24/18 14:15 INR 1.2 (0.9-1.3) 04/24/18 14:15 Sodium 139 mmol/L (137-145) 04/28/18 12:25 Potassium 3.6 mmol/L (3.4-5.1) 04/28/18 12:25 Chloride 100 mmol/L (98-107) 04/28/18 12:25 Carbon Dioxide 27 mmol/L (22-32) 04/28/18 12:25 BUN 11 mg/dL (7-17) 04/28/18 12:25 Creatinine 0.50 mg/dL (0.52-1.04) L 04/28/18 12:25 Estimated GFR > 60.0 mL/min (>60) 04/28/18 12:25 BUN/Creatinine Ratio 22.0 (6-22) 04/28/18 12:25 Glucose 100 mg/dL (80-110) 04/28/18 12:25 Calcium 9.8 mg/dL (8.4-10.2) 04/28/18 12:25 Total Bilirubin 0.5 mg/dL (0.2-1.3) 04/28/18 12:25 AST 31 IU/L (14-36) 04/28/18 12:25 ALT 26 IU/L (9-52) 04/28/18 12:25 Alkaline Phosphatase 119 U/L (38-126) 04/28/18 12:25 Lactate Dehydrogenase 541 U/L (313-618) 04/24/18 14:15 Total Protein 8.1 g/dL (6.3-8.2) 04/28/18 12:25 Albumin 4.5 g/dL (3.5-5.0) 04/28/18 12:25 Globulin 3.6 g/dL (1.7-4.1) 04/28/18 12:25 Albumin/Globulin Ratio 1.3 (1.0-2.8) 04/28/18 12:25 Hep Bs Antigen Negative s/c (NEGATIVE) 05/15/18 14:32 Hep Bs Antibody Nonreactive (Nonreactive) 05/15/18 15:31 Hep B Core Total Ab Nonreactive (Nonreactive) 05/15/18 15:31 Hep B Core IgM Ab Nonreactive (Nonreactive) 05/15/18 15:31 Hepatitis C Antibody Negative s/c (NEGATIVE) 05/15/18 14:32 Assessment and Plan (1) Hodgkins lymphoma in relapse Problem details: 1. Stage IV classical HD, diagnosed after skin punch biopsy of a lesion on the right superior upper chest on 05/15/2016. CT and PET scan staging showed extensive multiple superfical soft tissues of the skin and retroperitoneal lymphadenpathy 2. Patient received ABVD from 06/12/2016 through 12/04/2016. After 2 cycles, she had [place] 1 PET response, bleomycin was discontinued. 3. Replased in 02/2018, with B symptoms. Confirmed by CT guided retroperitoneal biopsy on 04/25/2018. Assessment: The pathology showed classical Hodgkin's lymphoma. Patient's recent PET-CT showed that the extent of the hypermetabolic lymphadenopathy affects lymph nodes both above and below the diaphragm. The stage is thus stage III. Bone marrow aspiration and biopsy did not show any evidence of involvement by the Hodgkin's lymphoma or follicular lymphoma. Clinically patient also has significant B symptoms including fever, night sweats, and weight loss. Patient reported good appetite and on physical examination she does not appear toxic. Infection is very much unlikely. Dr Gongora discussed with the patient that for relapsed Hodgkin's lymphoma, he would recommend treatment with brentuximab vedotin which is an antibody drug conjugate (ADC). This drug has been pre auth with her insurnace and she is scheduled to initiate treatment may 22. Clinical trials have showed the extent response to the brentuximab vedotin. Dr Gongora also talked with the patient about the potential side effects or complications associated with the use of brentuximab vedotin. Especially emphasized the possible neurological complications including motor neuropathy and foot drop. Patient today states she is not interested in a second opinion with Dr. Vick at [facility], it was her understanding Dr Gongora would call him. Plan: 1. Port placement with Dr Valencia today 2. MUGA scan is awaiting insurance pre auth 3. Pre-auth has been received for Brentuxmab Vedontin 1.8 mg/kg every 21 days, consider in combination with Bendamustine (90/mg/m2) on day 1 and 2 of 21 day cycle for up to 6 cycles. 4. PFT has been preauth 5. RTC MD visit on 05/22/2018, lab include: CBC, CMP, LDH, ESR, HBSAg, HBSAb, HBcAb (IgG/M), HBeAg and to initiate treatment. (2) Follicular lymphoma Problem details: Follicular lymphoma diagnosed by needle core biopsy of retroperitoneal lymph nodes on 12/27/2008 that showed atypical lymphoid infiltrate most consistent with follicular lymphoma. 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 FLIPI score was 2. She was consulted at [facility] and active surveillance was recommended. Until now there has been no evidence to suggest recurrence or transformation of her underlying follicular lymphoma. Assessment and Plan: No evidence of recurrence. The CT-guided biopsy of the retroperitoneal lymph node showed no evidence of follicular lymphoma.
--- NOTE | 2018-05-21 15:57 | ONC.SCHED ---
Bendamustine-no auth required per [facility]
--- NOTE | 2018-05-22 08:28 | ONC.PN ---
PN -Subjective Interval history: 72-year-old female with history Hodgkin's lymphoma and low-grade follicular lymphoma presents now with relapsed classical Hodgkin's lymphoma confirmed by CT-guided bx of left retroperitoneal lymph node 04/25/2018. Patient clinically has been experiencing intermittent high fever, drenching sweats, cough, and decreased appetite. She is also reporting low energy level. She said that she spent most of her day time dozing off. She has better energy level when she wakes up. She is also experiencing dry eyes, with stinging sensation. She denies any palpable lumps or bumps. Her taste is different now and is becoming more metalic. She is complaining of dry mouth. She denies cp or sob. She is having abdominal bloatness, and feels pretty full, round, and uncomfortable, more so in the evening. In the morning, she feels better. She reports no diarrhea and no constipation, and no muscle pain, Oncology History Her follicular lymphoma was diagnosed after core needle biopsy of retroperitoneal lymph nodes on 12/27/2008 that showed atypical lymphoid infiltrate most consistent with follicular lymphoma. 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 FLIPI score was 2. She was consulted at [facility] and active surveillance was recommended. Her Hodgkin's lymphoma was diagnosed after skin punch biopsy of a lesion on the right superior upper chest on 05/15/2016 which showed classical Hodgkin's lymphoma involving deep dermis and subcutaneous tissue. Her initial presentation was characterized by raised skin plaques affecting the upper trunk and the facial area. Staging CT scan on 05/30/2016 showed multiple, diffuse, superficial soft tissue nodules (anterior left ear, right ear, upper back, posterior right shoulder, sternoclavicular notch, right lateral aspect of the upper breast, posterior to left scapular and anterior aspect of the right chest wall). The conglomerate adenopathy at the retrocrural and periaortic level overall smaller compared to previous scan reflecting follicular lymphoma. PET-CT on 06/13/2016 showed multiple cutaneous hypermetabolic lesions ([place] 5) involving bilateral neck, just above the right mandibular angle, anterior neck superficial to the thyroid cartilage, chest wall, shoulders and upper arms bilaterally, small left axillary lymph node, extensive retroperitoneal lymphadenpathy most prominent for a bulky left para-aortic lymph nodes measuring 28 x 36 x 75 mm with SUV 11.7, left internal an dexternal iliac lymphadenopathy, right pelvis, cutaneous nodules in the posterior low back and buttocks, Her HD was therefore deemed stage IV. Patient received ABVD from 06/12/2016 through 12/04/2016. After 2 cycles, she had [place] 1 PET response, bleomycin was discontinued. After treatment patient has been on active surveillance. Her CT scan in June of 2017 did not show any evidence of disease recurrence or metastasis. And retroperitoneal lymph nodes were shrinking in size. In early 02/2018, about 1.2 years after she completed ABVD, she developed mild night sweats and dry cough. CT chest abdomen and pelvis on 03/31/2018 showed interval marked increase in the size of retroperitoneal lymphadenopathy most prominent in the left para-aortic space, mildly increased retro-esophageal lymph node sizes and measures up to 12 mm in short axis diameter, by basilar scarring in the lungs and no gross mesenteric adenopathy. On 04/10/2018 patient underwent a bone marrow aspiration biopsy. The hematopathology showed no involvement by lymphoma either follicular or Hodgkin's. Patient underwent PET CT on 04/16/2018. The PET-CT showed hypermetabolic lymph nodes in the posterior mediastinum consistent with recurrent lymphoma ([place] scale 5) and hypermetabolic retroperitoneal and mesenteric lymph nodes consistent with recurrent lymphoma ([place]ville scale 5) (stage III). Patient underwent CT-guided biopsy of left retroperitoneal lymph node April 25, 2018. The pathology confirmed the diagnosis of classic Hodgkin's lymphoma. In the comment, it mentioned that the morphologic and immunohistochemical features are compatible with classic Hodgkin's lymphoma. Features are suggestive of but not definitively diagnostic for nodular sclerosis subtype of classical Hodgkin's lymphoma. There is no evidence of an atypical CD10 positive population by immunohistochemical or by flow cytometric analysis (follicular lymphoma was a clinical consideration). Concomitant flow cytometric analysis was without evidence of an atypical B-cell, T-cell or NK cell population. - Patient Self-Reported Symptoms SR Constitution: Fever, Chills, Fatigue/Malaise, Night Sweats SR ears, nose, mouth, throat issues: Cough SR respiratory issues: Cough SR Cardiovascular issues: Palpitations SR Gastrointestinal issues: Change in bowel pattern SR Endocrine issues: Hot flashes - Additional ROS All systems PM: reviewed and no additional remarkable complaints except as stated Home Medications and Allergies Home Medications Medication Instructions Recorded Confirmed Type Probiotic 1 cap PO DAILY #0 07/04/12 05/19/18 History coQ10 (ubiquinol) 250 mg PO DAILY #0 07/04/12 05/19/18 History multivitamin 1 tab PO DAILY #0 07/04/12 05/19/18 History [place]-3 Fish Oil 1 cap PO DAILY 05/15/18 05/19/18 History Protandim 1 dose PO DAILY 05/15/18 05/19/18 History Vitamin D Liquid 1 dose TOPICAL DAILY 05/15/18 05/19/18 History diltiazem HCl [Cartia XT] 180 mg PO QPM 05/15/18 05/20/18 History hydrocodone-acetaminophen 1 tab PO Q4-6H PRN #10 tab 05/20/18 Rx Allergies Allergy/AdvReac Type Severity Reaction Status Date / Time NSAIDS (Non-Steroidal Allergy Intermediate HIVES Verified 05/20/18 11:29 Anti-Inflamma [NSAIDS (NON-STEROIDAL ANTI-INFLAMMA] amoxicillin [AMOXICILLIN] Allergy Mild rash Verified 05/20/18 11:29 Exam Vital signs: Last Vital Signs Temp 98.1 F 05/22/18 08:52 Pulse 86 05/22/18 08:52 Resp 16 05/22/18 08:52 BP 103/62 05/22/18 08:52 Pulse Ox 97 05/22/18 08:52 Narrative: Constitutional: WDWN, NAD, thin, well groomed, pleasant and cooperative. Accompanied by her friend. HEENT: NCAT, EOMI, PERRLA, anicteric sclera. Neck: Supple, symmetrical, and tracheal midline; No palpable thyromegaly and no palpable lymph nodes. Respiratory: No use of accessory muscles. Clear to auscultation, and no wheezes or rales or rubs. Cardiovascular: Regular rate and rhythm, S1 and S2 normal, no murmurs gallops or rubs. No JVD. No pitting edema of lower extremities. Abdomen: Soft, nontender, non-distended, bowel sounds normal, no palpable organomegaly, no hernia, no palpable masses. Lower extremities: No palpable pedal edema. Lymphatic: no palpable lymph nodes in the neck, axillae, or groins. Musculoskeletal: normal gait and station, no clubbing, no cyanosis, no pitting edema. Skin: no rashes, no ulcers, no petechiae Neurological: Awake and alert and oriented x3. CN II-XII grossly intact. No focal motor or sensory deficit. Psychiatric: Good judgment, good insight, normal affect, normal thought process, cooperative, no depression, no anxiety. Results - Labs Laboratory Last Values WBC 14.3 X10^3/uL (4.5-11.0) H 05/22/18 08:36 RBC 3.93 X10^6/uL (4.0-5.2) L 05/22/18 08:36 Hgb 10.7 g/dL (12.0-16.0) L 05/22/18 08:36 Hct 33.0 % (36-46) L 05/22/18 08:36 MCV 83.8 fL (80-100) 05/22/18 08:36 MCH 27.2 PG (26-34) 05/22/18 08:36 MCHC 32.5 % (30-36) 05/22/18 08:36 RDW 14.9 % (11.6-14.8) H 05/22/18 08:36 Plt Count 353 X10^3/uL (150-400) 05/22/18 08:36 Neut % (Auto) 85.4 % (50-75) H 05/22/18 08:36 Lymph % (Auto) 8.5 % (25-40) L 05/22/18 08:36 [place] % (Auto) 5.1 % (3-14) 05/22/18 08:36 Eos % (Auto) 0.2 % (2-4) L 05/22/18 08:36 Baso % (Auto) 0.8 % (0-2) 05/22/18 08:36 Neut # (Auto) 66684 /uL (8598-4747) H 05/22/18 08:36 Lymph # (Auto) 1200 /uL (0675-1611) 05/22/18 08:36 [place] # (Auto) 700 /uL (0-900) 05/22/18 08:36 Eos # (Auto) 0 /uL (0-450) 05/22/18 08:36 Baso # (Auto) 100 /uL (0-100) 05/22/18 08:36 ESR 83 MM/HR (0-20) H 05/22/18 08:36 PT 14.2 SECONDS (10.1-12.7) H 04/24/18 14:15 INR 1.2 (0.9-1.3) 04/24/18 14:15 Sodium 138 mmol/L (137-145) 05/22/18 08:36 Potassium 3.6 mmol/L (3.4-5.1) 05/22/18 08:36 Chloride 103 mmol/L (98-107) 05/22/18 08:36 Carbon Dioxide 28 mmol/L (22-32) 05/22/18 08:36 BUN 10 mg/dL (7-17) 05/22/18 08:36 Creatinine 0.50 mg/dL (0.52-1.04) L 05/22/18 08:36 Estimated GFR > 60.0 mL/min (>60) 05/22/18 08:36 BUN/Creatinine Ratio 20.0 (6-22) 05/22/18 08:36 Glucose 116 mg/dL (80-110) H 05/22/18 08:36 Calcium 9.1 mg/dL (8.4-10.2) 05/22/18 08:36 Total Bilirubin 0.5 mg/dL (0.2-1.3) 05/22/18 08:36 AST 27 IU/L (14-36) 05/22/18 08:36 ALT 23 IU/L (9-52) 05/22/18 08:36 Alkaline Phosphatase 104 U/L (38-126) 05/22/18 08:36 Lactate Dehydrogenase 535 U/L (313-618) 05/22/18 08:36 Total Protein 6.6 g/dL (6.3-8.2) 05/22/18 08:36 Albumin 3.6 g/dL (3.5-5.0) 05/22/18 08:36 Globulin 3.0 g/dL (1.7-4.1) 05/22/18 08:36 Albumin/Globulin Ratio 1.2 (1.0-2.8) 05/22/18 08:36 Hep Bs Antigen Negative s/c (NEGATIVE) 02/21/19 14:32 Hep Bs Antibody Nonreactive (Nonreactive) 05/15/18 15:31 Hep B Core Total Ab Nonreactive (Nonreactive) 05/15/18 15:31 Hep B Core IgM Ab Nonreactive (Nonreactive) 05/15/18 15:31 Hepatitis C Antibody Negative s/c (NEGATIVE) 05/15/18 14:32 Assessment and Plan (1) Hodgkins lymphoma in relapse Problem details: 1. Stage IV classical HD, diagnosed after skin punch biopsy of a lesion on the right superior upper chest on 05/15/2016. CT and PET scan staging showed extensive multiple superfical soft tissues of the skin and retroperitoneal lymphadenpathy (stage IV) 2. Patient received ABVD from 06/12/2016 through 12/04/2016. After 2 cycles, she had [place] 1 PET response, bleomycin was discontinued. 3. Replased in 02/2018, with B symptoms. Confirmed by CT guided retroperitoneal biopsy on 04/25/2018. PET showed above and below diaphram involvement, with negative BMA/BX. Stage III. Assessment: Today, I focused my discussion with the patient and her friend Faye on the treatment strategies for relapsed Hodgkin's lymphoma. I talked with them that the standard recommendation is re-induction chemotherapy followed by autologous peripheral blood stem transplant. That is the reason why I was referring the patient to [facility]. As far as the induction chemotherapy is concerned, I talked with the patient that there is clinical trials that evaluate the effect of bendamustine in combination with brentuximab vedotin. These combination is a highly active first salvage regimen for relapsed or refractory Hodgkin's lymphoma (Blood 2018; 132(1):40). This phase 1/2 study evaluated the combination of brentuximab vedotin (BV) plus bendamustine as a first salvage regimen in relapsed/refractory HL. A total of 55 patients (28 primary refractory and 27 relapsed) were enrolled. Patients received BV (1.8 mg/kg) on day 1 and bendamustine (90 mg/m2) on days 1 and 2 of a 21-day cycle for up to 6 cycles. Patients could undergo ASCT any time after cycle 2. Following ASCT or completion of combination therapy if not proceeding to ASCT, patients could receive BV monotherapy for up to 16 cycles of total therapy. After a median of 2 cycles of combination therapy (range, 1-6), the objective response rate among 53 efficacy-evaluable patients was 92.5%, with 39 patients (73.6%) achieving CR. Forty patients underwent ASCT. Thirty-one patients (25 of whom underwent ASCT) received BV monotherapy (median, 10 cycles; range, 1-14). After a median of 20.9 months of follow-up, the estimated 2-year progression-free survival was 69.8% and 62.6% for patients who received ASCT and all patients, respectively. Thirty-one patients (56.4%) experienced infusion-related reactions (IRRs), with a majority occurring during cycle 2 of combination therapy. The most common IRR symptoms (of any grade) were fever (25.5%), chills (20.0%), dyspnea (16.4%), flushing (14.5%), nausea (14.5%), hypotension (10.9%), and pruritus (10.9%). Importantly, there were no cases of anaphylaxis. Therefore, the study was amended to require high-dose corticosteroid and antihistamine premedication (100 mg methylpredinsone or equivalent and 50 mg diphenhydramine or equivalent were recommended) with combination therapy. This approach decreased the severity of the IRRs but did not appreciably change the incidence (Figure 4A). Delayed hypersensitivity reactions with onset >24 hours after infusion occurred in 24 patients (43.6%), and were grade 3 in 7 patients (12.7%). Delayed hypersensitivity reactions were characterized by fever, rash (maculopapular and generalized), chills, nausea and pruritus. We discussed the regimen and we decided to start the treatment on Saturday because bendamustine has to be given on consecutive 2 days. The [facility] only opens 4 days a week, and closes on Saturday. I talked with the patient that she has been having intermittent high fever and drenching night sweats that predispose her to dehydration. Patient also reported significant dry mouth and weight loss. I talked with the patient that hydration is of utmost importance. I will proceed with normal saline 2000 cc today over 3 hr. I also encouraged the patient drink fluids, for example, Pedialyte ,over the weekend. I talked with her if she has any questions she needs to call us. Plan: 1. NS 2000 cc iv today 2. Will start Brentuxmab Vedontin 1.8 mg/kg on day 1 and Bendamustine (90/mg/m2) on day 1 and 2 of 21-day cycle, plan for 6 cycles. 3. [facility] 4. CBC, CMP, LDH on CD8 and D15. 5. RTC MD visit on C2D1 (2) Follicular lymphoma Problem details: Follicular lymphoma diagnosed by needle core biopsy of retroperitoneal lymph nodes on 12/27/2008 that showed atypical lymphoid infiltrate most consistent with follicular lymphoma. 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 FLIPI score was 2. She was consulted at [facility] and active surveillance was recommended. Until now there has been no evidence to suggest recurrence or transformation of her underlying follicular lymphoma. Assessment and Plan: No evidence of recurrence. The CT-guided biopsy of the retroperitoneal lymph node showed no evidence of follicular lymphoma.
[2018-05-22 08:44] LABS: Add Manual Diff / Slide Review NO; Basophils Absolute Auto 100 /uL (0-100); Basophils Percent Auto 0.8 % (0-2); Eosinophils Absolute Auto 0 /uL (0-450); Eosinophils Percent Auto 0.2 % (2-4); Hemoglobin 10.7 g/dL (12.0-16.0); Lymphocytes Absolute Auto 1200 /uL (1100-4500); Lymphocytes Percent Auto 8.5 % (25-40); Mean Corpuscular HGB Conc 32.5 % (30-36); Mean Corpuscular Hemoglobin 27.2 PG (26-34); Mean Corpuscular Volume 83.8 fL (80-100); Monocytes Absolute Auto 700 /uL (0-900); Monocytes Percent Auto 5.1 % (3-14); Neutrophils Absolute Auto 12200 /uL (1500-7000); Neutrophils Percent Auto 85.4 % (50-75); Platelet Count 353 X10^3/uL (150-400); Red Blood Cell Count 3.93 X10^6/uL (4.0-5.2); Red Cell Distribution Width 14.9 % (11.6-14.8); White Blood Cell Count 14.3 X10^3/uL (4.5-11.0)
[2018-05-22 08:52] VITALS: BP 103/62; PULSE 86; RESP 16; TEMP 36.7; O2SAT 97
[2018-05-22 08:56] LABS: Alanine Aminotransferase 23 IU/L (9-52); Albumin 3.6 g/dL (3.5-5.0); Albumin Globulin Ratio 1.2 (1.0-2.8); Alkaline Phosphatase 104 U/L (38-126); Aspartate Aminotransferase 27 IU/L (14-36); Bilirubin Total 0.5 mg/dL (0.2-1.3); Blood Urea Nitrogen 10 mg/dL (7-17); Calcium 9.1 mg/dL (8.4-10.2); Carbon Dioxide 28 mmol/L (22-32); Chloride 103 mmol/L (98-107); Estimated Glomerular Filt Rate > 60.0 mL/min (>60); Glucose 116 mg/dL (80-110); HEMOLYSIS < 15 (0-50); Potassium 3.6 mmol/L (3.4-5.1); Sodium 138 mmol/L (137-145); Total Protein 6.6 g/dL (6.3-8.2)
[2018-05-22 09:22] LABS: Lactate Dehydrogenase 535 U/L (313-618)
[2018-05-22 09:36] LABS: Erythrocyte Sedimentation Rate 83 MM/HR (0-20)
[2018-05-22] MEDS: SODIUM CHLORIDE 0.9% 2,000 ML 667 ML IV (09:48)
[2018-05-26] MEDS: methylPREDNISolone 125 MG/2 ML VIAL 100 MG IV (09:43)
[2018-05-26] MEDS: diphenhydrAMINE 25 MG TABLET 50 MG PO (09:43)
[2018-05-26] MEDS: SODIUM CHLORIDE 0.9% 2,000 ML 1000 ML IV (09:45)
[2018-05-26] MEDS: ONDANSETRON 16 MG in SODIUM CHLORIDE 0.9% 50 ML 232 ML IV (11:15)
[2018-05-26] MEDS: BRENTUXIMAB VEDOTIN IV (11:34)
[2018-05-26] MEDS: SODIUM CHLORIDE 0.9% IV (11:34)
[2018-05-26 12:21] VITALS: BP 114/65; PULSE 90; RESP 16; TEMP 36.7; O2SAT 96
[2018-05-26] MEDS: BENDAMUSTINE IV (12:37)
[2018-05-26] MEDS: NORMAL SALINE IV (12:37)
--- NOTE | 2018-05-27 09:49 | PM.CHEMOCOU ---
Chemotherapy Counseling - History of present illness History of present illness: The patient is a 72-year-old female with recently confirmed relapsed stage IV classical Hodgkin's lymphoma. She presents today for chemotherapy counseling. She began chemotherapy May 26. Her chemo regime consists of brentuxumab vendontin day 1, bendamustine day 1 and day 2 of a 21 day cycle for 6 cycles. Pt is also going to consult at [facility] for stem cell transplant. - Chemotherapy Counseling Chemotherapy Counseling: Chemotherapy Education: Leigh Arredondo provided written information on all topics discussed. Written materials printed from [email or web address] and [email or web address]. Leigh was given an overview of cancer and mechanism of action of cancer cells, that cancer is caused by cells that are dividing rapidly, and out of control. Traditional chemotherapy works by targeting the fast dividing cells and killing them. Chemotherapy affecting healthy cells dividing quickly causes many of the side effects (hair follicles, bone marrow, mucus membranes). Overview of blood cell functions of white cells to fight infection, red cells to carry oxygen, and platelets to stop bleeding was discussed, and that when bone marrow is affected by chemo, there is a decrease in production of these cells. Home care of the patient following chemotherapy was discussed. Body fluids will be contaminated for 48 hours following treatment, and any body fluids handled by caregivers should be handled wearing gloves, surfaces need to be cleaned with soap and water, any soiled linens or clothing need to be washed separately in hot water, toilet lid should be closed when flushing, person cleaning the toilet should wear gloves. How chemotherapy is administered by the RN?s in the clinic, that orders are double checked by pharmacy and checked again by two RN?s prior to administration. Nurses wear protective gear to prevent exposure to them of the chemotherapy agents which can also cause cancer. Cancer center information discussed and written hand out provided listing on-call oncologist available weekends and after hours triage R.N. hours and infusion room guide. New patient binder given to Leigh, which includes clinic names, phone numbers, clinic information, calendar, cancer glossary, and list of resources. Handout on advanced directives Common side effects of chemotherapy were discussed with self care tips for prevention of complications. Information also provided in writing. These included: Low blood counts (anemia, thrombocytopenia, neutropenia) Hair loss (alopecia) Nausea and vomiting Decreased appetite Loss of fertility Diarrhea Mouth sores Constipation Peripheral neuropathy Chemo brain/cognitive changes Fatigue Instructions on when to call your healthcare team or on-call physician immediately: Fever of 100.4 or higher, chills, any signs of infection Shortness of breath, wheezing, difficulty breathing, closing of throat, swelling of face, hives (signs of possible allergic reaction) Chest pain, fast heart beat or feelings of a different heart rhythm Swelling of an extremity with or without pain signs of stroke Instructions on when to call your healthcare team within the next 24 hours Nausea that interferes with ability to eat and unrelieved with prescribed medication Diarrhea (4-6 episodes in 24 hour period). Unusual bleeding or bruising Black or tarry stools, or blood in your stools Blood in the urine pain or burning with urination Extreme fatigue (unable to perform self-care activities) Mouth sores or sore areas in your mouth Bad headache Dizziness or lightheadedness Large weight gain over a short period of time General self-care tips while undergoing treatment discussed were as follows. Written materials were provided covering in detail and additional self care tips. Drink at least 2-3 quarts (8-10 glasses) of no-caffeinated beverages daily unless you are instructed otherwise and empty your bladder frequently Report any concerning symptoms to your healthcare team Avoid crowds and sick people, wash your hands frequently Use a soft bristled toothbrush, rinse three times a day with 1 tsp baking soda or 1 tsp salt mixed with warm water Avoid any mouthwashes or oral and skin products containing alcohol or fragrances Use electric razors to avoid cutting yourself Avoid contact sports or activities that could cause head injury or bleeding Avoid sun exposure, wear SPF 15 or higher, wear protective clothing Get plenty of rest, meter your activities Maintain good nutrition Avoid alcoholic beverages Attend your scheduled appointments and lab draws Treatment regimen reviewed and medications were discussed with attention to specific side effects and self care for the pt?s treatment regimen which includes [adcerteris, bendamustine every 21 days]. Leigh was provided with literature regarding [] and common side effects. Additionally, Leigh was provided with literature regarding the diagnosis of [st IV classic hodgkins lymphoma]. Leigh instructed to read literature at home. Keep a list of questions which we are happy to go over at future visits. For any urgent questions please feel free to call any time. - Response to Teaching Response to Teaching: Verbalizes Understanding (pt signed consent with dr Gongora)
[2018-05-27] MEDS: SODIUM CHLORIDE 0.9% 100 ML 21 ML IV (10:07)
[2018-05-27] MEDS: DEXAMETHASONE 12 MG in SODIUM CHLORIDE 0.9% 50 ML 212 ML IV (10:07)
[2018-05-27] MEDS: ONDANSETRON 16 MG in SODIUM CHLORIDE 0.9% 50 ML 232 ML IV (10:37)
[2018-05-27 11:04] VITALS: BP 116/72; PULSE 75; RESP 16; TEMP 36.5; O2SAT 98
[2018-05-27] MEDS: BENDAMUSTINE IV (11:13)
[2018-05-27] MEDS: NORMAL SALINE IV (11:13)
--- NOTE | 2018-05-27 13:36 | ONC.NAV ---
*Pt declined a Chemo Quilt.
[2018-06-02 13:21] LABS: Add Manual Diff / Slide Review NO; Basophils Absolute Auto 0 /uL (0-100); Basophils Percent Auto 0.4 % (0-2); Eosinophils Absolute Auto 0 /uL (0-450); Eosinophils Percent Auto 0.9 % (2-4); Hematocrit 34.4 % (36-46); Lymphocytes Absolute Auto 300 /uL (1100-4500); Lymphocytes Percent Auto 5.9 % (25-40); Mean Corpuscular Volume 84.4 fL (80-100); Monocytes Absolute Auto 600 /uL (0-900); Monocytes Percent Auto 14.7 % (3-14); Neutrophils Absolute Auto 3300 /uL (1500-7000); Neutrophils Percent Auto 78.1 % (50-75); Platelet Count 220 X10^3/uL (150-400); Red Blood Cell Count 4.07 X10^6/uL (4.0-5.2); Red Cell Distribution Width 15.5 % (11.6-14.8); White Blood Cell Count 4.2 X10^3/uL (4.5-11.0)
[2018-06-02 13:33] LABS: Alanine Aminotransferase 37 IU/L (9-52); Albumin 3.7 g/dL (3.5-5.0); Albumin Globulin Ratio 1.3 (1.0-2.8); Alkaline Phosphatase 87 U/L (38-126); Aspartate Aminotransferase 46 IU/L (14-36); Bilirubin Total 0.4 mg/dL (0.2-1.3); Blood Urea Nitrogen 14 mg/dL (7-17); Calcium 9.1 mg/dL (8.4-10.2); Carbon Dioxide 29 mmol/L (22-32); Chloride 101 mmol/L (98-107); Estimated Glomerular Filt Rate > 60.0 mL/min (>60); Globulin 2.9 g/dL (1.7-4.1); Glucose 103 mg/dL (80-110); HEMOLYSIS < 15 (0-50); Sodium 137 mmol/L (137-145); Total Protein 6.6 g/dL (6.3-8.2)
[2018-06-09 14:56] LABS: Add Manual Diff / Slide Review YES; Hematocrit 31.7 % (36-46); Hemoglobin 10.2 g/dL (12.0-16.0); Mean Corpuscular HGB Conc 32.2 % (30-36); Mean Corpuscular Hemoglobin 27.2 PG (26-34); Mean Corpuscular Volume 84.6 fL (80-100); Platelet Count 123 X10^3/uL (150-400); Red Blood Cell Count 3.75 X10^6/uL (4.0-5.2); Red Cell Distribution Width 16.6 % (11.6-14.8); White Blood Cell Count 3.9 X10^3/uL (4.5-11.0)
[2018-06-09 15:04] LABS: Alanine Aminotransferase 42 IU/L (9-52); Albumin 3.6 g/dL (3.5-5.0); Albumin Globulin Ratio 1.3 (1.0-2.8); Alkaline Phosphatase 86 U/L (38-126); Aspartate Aminotransferase 48 IU/L (14-36); Bilirubin Total 0.3 mg/dL (0.2-1.3); Blood Urea Nitrogen 14 mg/dL (7-17); Calcium 8.7 mg/dL (8.4-10.2); Carbon Dioxide 27 mmol/L (22-32); Chloride 103 mmol/L (98-107); Estimated Glomerular Filt Rate > 60.0 mL/min (>60); Globulin 2.8 g/dL (1.7-4.1); Glucose 90 mg/dL (80-110); HEMOLYSIS < 15 (0-50); Potassium 3.8 mmol/L (3.4-5.1); Sodium 136 mmol/L (137-145); Total Protein 6.4 g/dL (6.3-8.2)
[2018-06-09 15:15] LABS: Neutrophils Absolute Manual 1950 /uL (3000-5900); Platelet Estimate Decreased on smear; RBC Morphology Normal Morphology; Total Cells Counted 100
[2018-06-16 10:45] VITALS: BP 120/70; PULSE 75; RESP 18; TEMP 36.8; O2SAT 100
[2018-06-16 11:04] LABS: Alanine Aminotransferase 41 IU/L (9-52); Albumin 3.8 g/dL (3.5-5.0); Albumin Globulin Ratio 1.5 (1.0-2.8); Alkaline Phosphatase 80 U/L (38-126); Aspartate Aminotransferase 44 IU/L (14-36); BUN Creatinine Ratio 21.7 (6-22); Bilirubin Total 0.3 mg/dL (0.2-1.3); Blood Urea Nitrogen 13 mg/dL (7-17); Calcium 9.1 mg/dL (8.4-10.2); Carbon Dioxide 27 mmol/L (22-32); Chloride 105 mmol/L (98-107); Estimated Glomerular Filt Rate > 60.0 mL/min (>60); Globulin 2.6 g/dL (1.7-4.1); Glucose 101 mg/dL (80-110); HEMOLYSIS < 15 (0-50); Hematocrit 34.3 % (36-46); Hemoglobin 11.3 g/dL (12.0-16.0); Mean Corpuscular HGB Conc 32.8 % (30-36); Mean Corpuscular Hemoglobin 27.7 PG (26-34); Mean Corpuscular Volume 84.3 fL (80-100); Platelet Count 129 X10^3/uL (150-400); Potassium 3.9 mmol/L (3.4-5.1); Red Blood Cell Count 4.07 X10^6/uL (4.0-5.2); Red Cell Distribution Width 18.9 % (11.6-14.8); Sodium 139 mmol/L (137-145); Total Protein 6.4 g/dL (6.3-8.2); White Blood Cell Count 3.4 X10^3/uL (4.5-11.0)
[2018-06-16 11:07] LABS: Add Manual Diff / Slide Review YES
--- NOTE | 2018-06-16 11:09 | P.PNONC_ITS ---
PN -Subjective Interval history: 72-year-old female with history Hodgkin's lymphoma and low-grade follicular lymphoma presents now with relapsed classical Hodgkin's lymphoma confirmed by CT-guided bx of left retroperitoneal lymph node 04/25/2018. Patient received first cycle of the chemotherapy with bendamustine and brentuximab on 05/26/2018. She developed restless leg feeling the night of C1D1. No nausea. Since then, her fever has completely resolved. Her night sweats have improved dramatically. Her abdominal bloating has been completely gone. Her residual cough has improved. She is having some constipation during the first week. she is eating lots of fresh vegetable and berries. Lots of water. Her weight stable. No worsening tingling and numbing of hands or feet. She has no problem walking. She is careful with her motion. Oncology History Her follicular lymphoma was diagnosed after core needle biopsy of retroperitoneal lymph nodes on 12/27/2008 that showed atypical lymphoid infiltrate most consistent with follicular lymphoma. 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 FLIPI score was 2. She was consulted at [facility] and active surveillance was recommended. Her Hodgkin's lymphoma was diagnosed after skin punch biopsy of a lesion on the right superior upper chest on 05/15/2016 which showed classical Hodgkin's lymphoma involving deep dermis and subcutaneous tissue. Her initial presentation was characterized by raised skin plaques affecting the upper trunk and the facial area. Staging CT scan on 05/30/2016 showed multiple, diffuse, superficial soft tissue nodules (anterior left ear, right ear, upper back, posterior right shoulder, sternoclavicular notch, right lateral aspect of the upper breast, posterior to left scapular and anterior aspect of the right chest wall). The conglomerate adenopathy at the retrocrural and periaortic level overall smaller compared to previous scan reflecting follicular lymphoma. PET-CT on 06/13/2016 showed multiple cutaneous hypermetabolic lesions ([place] 5) involving bilateral neck, just above the right mandibular angle, anterior neck superficial to the thyroid cartilage, chest wall, shoulders and upper arms bilaterally, small left axillary lymph node, extensive retroperitoneal lymphadenpathy most prominent for a bulky left para-aortic lymph nodes measuring 28 x 36 x 75 mm with SUV 11.7, left internal an dexternal iliac lymphadenopathy, right pelvis, cutaneous nodules in the posterior low back and buttocks, Her HD was therefore deemed stage IV. Patient received ABVD from 06/12/2016 through 12/04/2016. After 2 cycles, she had [place] 1 PET response, bleomycin was discontinued. After treatment patient has been on active surveillance. Her CT scan in June of 2017 did not show any evidence of disease recurrence or metastasis. And retroperitoneal lymph nodes were shrinking in size. In early 02/2018, about 1.2 years after she completed ABVD, she developed mild night sweats and dry cough. CT chest abdomen and pelvis on 03/31/2018 showed interval marked increase in the size of retroperitoneal lymphadenopathy most prominent in the left para-aortic space, mildly increased retro-esophageal lymph node sizes and measures up to 12 mm in short axis diameter, by basilar scarring in the lungs and no gross mesenteric adenopathy. On 04/10/2018 patient underwent a bone marrow aspiration biopsy. The hematopathology showed no involvement by lymphoma either follicular or Hodgkin's. Patient underwent PET CT on 04/16/2018. The PET-CT showed hypermetabolic lymph nodes in the posterior mediastinum consistent with recurrent lymphoma ([place] scale 5) and hypermetabolic retroperitoneal and mesenteric lymph nodes consistent with recurrent lymphoma ([place]ville scale 5) (stage III). Patient underwent CT-guided biopsy of left retroperitoneal lymph node April 25, 2018. The pathology confirmed the diagnosis of classic Hodgkin's lymphoma. In the comment, it mentioned that the morphologic and immunohistochemical features are compatible with classic Hodgkin's lymphoma. Features are suggestive of but not definitively diagnostic for nodular sclerosis subtype of classical Hodgkin's lymphoma. There is no evidence of an atypical CD10 positive population by immunohistochemical or by flow cytometric analysis (follicular lymphoma was a clinical consideration). Concomitant flow cytometric analysis was without evidence of an atypical B-cell, T-cell or NK cell population. - Patient Self-Reported Symptoms SR Constitution: Fever, Chills, Fatigue/Malaise, Night Sweats SR ears, nose, mouth, throat issues: Cough SR respiratory issues: Cough SR Cardiovascular issues: Palpitations SR Gastrointestinal issues: Change in bowel pattern SR Endocrine issues: Hot flashes - Additional ROS All systems PM: reviewed and no additional remarkable complaints except as stated Home Medications and Allergies Home Medications Medication Instructions Recorded Confirmed Type Probiotic 1 cap PO DAILY #0 07/04/12 06/03/18 History coQ10 (ubiquinol) 250 mg PO DAILY #0 07/04/12 06/03/18 History multivitamin 1 tab PO DAILY #0 07/04/12 06/03/18 History [place]-3 Fish Oil 1 cap PO DAILY 05/15/18 06/03/18 History Protandim 1 dose PO DAILY 05/15/18 06/03/18 History Vitamin D Liquid 1 dose TOPICAL DAILY 05/15/18 06/03/18 History ondansetron HCl [Zofran] 4 mg PO Q6-8H PRN #30 tab 05/27/18 06/03/18 Rx diltiazem CD 180 mg 180 mg PO QPM #90 cap 06/03/18 Rx capsule,extended release 24 hr Allergies Allergy/AdvReac Type Severity Reaction Status Date / Time NSAIDS (Non-Steroidal Allergy Intermediate HIVES Verified 06/03/18 15:26 Anti-Inflamma [NSAIDS (NON-STEROIDAL ANTI-INFLAMMA] amoxicillin [AMOXICILLIN] Allergy Mild rash Verified 06/03/18 15:26 Exam Vital signs: Vital Signs Temp Pulse Resp BP Pulse Ox 06/16/18 10:45 98.2 F 75 18 120/70 100 Intake and Output 06/15/18 06/16/18 06/16/18 23:59 07:59 15:59 Other: Weight 50.2 kg Patient Weight 06/16/18 23:59 Weight 50.2 kg ECOG 1 Narrative: Constitutional: WDWN, NAD, thin, well groomed, pleasant and cooperative. Accompanied by her friend. HEENT: NCAT, EOMI, PERRLA, anicteric sclera. Neck: Supple, symmetrical, and tracheal midline; No palpable thyromegaly and no palpable lymph nodes. Respiratory: No use of accessory muscles. Clear to auscultation, and no wheezes. Cardiovascular: Regular rate and rhythm, S1 and S2 normal, no murmurs gallops or rubs. No JVD. No pitting edema of lower extremities. Abdomen: Soft, nontender, non-distended, bowel sounds normal, no palpable organomegaly, no hernia, no palpable masses. Lower extremities: No palpable pedal edema. Lymphatic: no palpable lymph nodes in the neck, axillae, or groins. Musculoskeletal: normal gait and station, no clubbing, no cyanosis, no pitting edema. Skin: no rashes, no ulcers, no petechiae Neurological: Awake and alert and oriented x3. CN II-XII grossly intact. No focal motor or sensory deficit. Psychiatric: Good judgment, good insight, normal affect, normal thought process, cooperative, no depression. Results - Labs Laboratory Last Values WBC 3.4 X10^3/uL (4.5-11.0) L 06/16/18 10:42 RBC 4.07 X10^6/uL (4.0-5.2) 06/16/18 10:42 Hgb 11.3 g/dL (12.0-16.0) L 06/16/18 10:42 Hct 34.3 % (36-46) L 06/16/18 10:42 MCV 84.3 fL (80-100) 06/16/18 10:42 MCH 27.7 PG (26-34) 06/16/18 10:42 MCHC 32.8 % (30-36) 06/16/18 10:42 RDW 18.9 % (11.6-14.8) H 06/16/18 10:42 Plt Count 129 X10^3/uL (150-400) L 06/16/18 10:42 Neut % (Auto) Not Reportable 06/16/18 10:42 Lymph % (Auto) Not Reportable 06/16/18 10:42 [place] % (Auto) Not Reportable 06/16/18 10:42 Eos % (Auto) Not Reportable 06/16/18 10:42 Baso % (Auto) Not Reportable 06/16/18 10:42 Neut # (Auto) 3300 /uL (6970-0303) 06/02/18 08:24 Lymph # (Auto) Not Reportable 06/16/18 10:42 Barber # (Auto) Not Reportable 06/16/18 10:42 Eos # (Auto) 0 /uL (0-450) 06/02/18 08:24 Baso # (Auto) Not Reportable 06/16/18 10:42 Total Counted 100 06/16/18 10:42 Seg Neutrophils % 46.0 % (38-70) 06/16/18 10:42 Band Neutrophils % 7.0 % (3-7) 06/16/18 10:42 Lymphocytes % (Manual) 15.0 % (25-45) L 06/16/18 10:42 Atypical Lymphs % 3.0 % (-0) H 06/16/18 10:42 Monocytes % (Manual) 26.0 % (2-11) H 06/16/18 10:42 Eosinophils % (Manual) 2.0 % (2-4) 06/16/18 10:42 Basophils % (Manual) 1.0 % (0-1) 06/16/18 10:42 Neutrophils # (Manual) 1802 /uL (7767-4479) L 06/16/18 10:42 Platelet Estimate Decreased on smear 06/09/18 09:16 RBC Morphology See below 06/16/18 10:42 Anisocytosis 1+ H 06/16/18 10:42 ESR 83 MM/HR (0-20) H 05/22/18 08:36 PT 14.2 SECONDS (10.1-12.7) H 04/24/18 14:15 INR 1.2 (0.9-1.3) 04/24/18 14:15 Sodium 139 mmol/L (137-145) 06/16/18 10:42 Potassium 3.9 mmol/L (3.4-5.1) 06/16/18 10:42 Chloride 105 mmol/L (98-107) 06/16/18 10:42 Carbon Dioxide 27 mmol/L (22-32) 06/16/18 10:42 BUN 13 mg/dL (7-17) 06/16/18 10:42 Creatinine 0.60 mg/dL (0.52-1.04) 06/16/18 10:42 Estimated GFR > 60.0 mL/min (>60) 06/16/18 10:42 BUN/Creatinine Ratio 21.7 (6-22) 06/16/18 10:42 Glucose 101 mg/dL (80-110) 06/16/18 10:42 Calcium 9.1 mg/dL (8.4-10.2) 06/16/18 10:42 Total Bilirubin 0.3 mg/dL (0.2-1.3) 06/16/18 10:42 AST 44 IU/L (14-36) H 06/16/18 10:42 ALT 41 IU/L (9-52) 06/16/18 10:42 Alkaline Phosphatase 80 U/L (38-126) 06/16/18 10:42 Lactate Dehydrogenase 535 U/L (313-618) 05/22/18 08:36 Total Protein 6.4 g/dL (6.3-8.2) 06/16/18 10:42 Albumin 3.8 g/dL (3.5-5.0) 06/16/18 10:42 Globulin 2.6 g/dL (1.7-4.1) 06/16/18 10:42 Albumin/Globulin Ratio 1.5 (1.0-2.8) 06/16/18 10:42 Hep Bs Antigen Negative s/c (NEGATIVE) 05/15/18 14:32 Hep Bs Antibody Nonreactive (Nonreactive) 05/15/18 15:31 Hep B Core Total Ab Nonreactive (Nonreactive) 05/15/18 15:31 Hep B Core IgM Ab Nonreactive (Nonreactive) 05/15/18 15:31 Hepatitis C Antibody Negative s/c (NEGATIVE) 05/15/18 14:32 Assessment and Plan (1) Hodgkins lymphoma in relapse Problem details: 1. Stage IV classical HD, diagnosed after skin punch biopsy of a lesion on the right superior upper chest on 05/15/2016. CT and PET scan staging showed extensive multiple superfical soft tissues of the skin and retroperitoneal lymphadenpathy (stage IV) 2. Patient received ABVD from 06/12/2016 through 12/04/2016. After 2 cycles, she had [place] 1 PET response, bleomycin was discontinued. 3. Replased in 02/2018, with B symptoms. Confirmed by CT guided retroperitoneal biopsy on 04/25/2018. PET showed above and below diaphram involvement, with negative BMA/BX. Stage III. Assessment: 72 year old with relapsed HD now on salvage chemotherapy with Bendamustine/Brentuximab. Patient completed the first cycle of the chemotherapy. Clinically patient has B symptoms have almost completely resolved indicating significant response to the current treatment. Today I talked the following study again with the patient: the clinical trials that evaluate the effect of bendamustine in combination with brentuximab vedotin (Blood 2018; 132(1):40). I took time answering patient's questions. I showed the patient the response rate as well as the progression-free survival based on the above study. After a median of 20.9 months of follow-up, the estimated 2-year progression-free survival was 69.8% and 62.6% for patients who received ASCT and all patients, respectively. Patient voiced understanding. She has already scheduled to see Dr. Ayad Hernandez as well as to go to [facility] for bone marrow transplant evaluation. Plan: 1. Ok to proceed to cycle 2 Brentuxmab/Bendamustine. 2. [facility]/ SCT visit as schedueld 3. Visit with Dr Ayad Hernandez as scheduled. 4. CBC, CMP, LDH on C2D8 and D15. 5. RTC MD visit on C3D1 (2) Follicular lymphoma Problem details: Follicular lymphoma diagnosed by needle core biopsy of retroperitoneal lymph nodes on 12/27/2008 that showed atypical lymphoid infiltrate most consistent with follicular lymphoma. 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 FLIPI score was 2. She was consulted at [facility] and active surveillance was recommended. Until now there has been no evidence to suggest recurrence or transformation of her underlying follicular lymphoma. Assessment and Plan: No evidence of recurrence. The CT-guided biopsy of the retroperitoneal lymph node showed no evidence of follicular lymphoma.
[2018-06-16 11:26] LABS: Neutrophils Absolute Manual 1802 /uL (3000-5900); Total Cells Counted 100
[2018-06-16 11:29] LABS: Anisocytosis 1+
[2018-06-16] MEDS: SODIUM CHLORIDE 0.9% 100 ML 21 ML IV (12:00)
[2018-06-16] MEDS: methylPREDNISolone 125 MG/2 ML VIAL 100 MG IV (12:30)
[2018-06-16] MEDS: diphenhydrAMINE 25 MG TABLET 50 MG PO (12:31)
[2018-06-16] MEDS: ONDANSETRON 16 MG in SODIUM CHLORIDE 0.9% 50 ML 232 ML IV (12:55)
[2018-06-16] MEDS: SODIUM CHLORIDE 0.9% IV (13:40)
[2018-06-16] MEDS: BRENTUXIMAB VEDOTIN IV (13:40)
[2018-06-16] MEDS: BENDAMUSTINE IV (14:49)
[2018-06-16] MEDS: NORMAL SALINE IV (14:49)
[2018-06-17 09:32] VITALS: BP 114/71; PULSE 64; RESP 16; TEMP 36.7; O2SAT 100
[2018-06-17] MEDS: DEXAMETHASONE 12 MG in SODIUM CHLORIDE 0.9% 50 ML 212 ML IV (09:41)
[2018-06-17] MEDS: ONDANSETRON 16 MG in SODIUM CHLORIDE 0.9% 50 ML 232 ML IV (10:06)
[2018-06-17] MEDS: NORMAL SALINE IV (10:49)
[2018-06-17] MEDS: BENDAMUSTINE IV (10:49)
[2018-06-17] MEDS: SODIUM CHLORIDE 0.9% 100 ML 21 ML IV (12:35)
[2018-06-23 10:06] LABS: Alanine Aminotransferase 38 IU/L (9-52); Albumin 4.1 g/dL (3.5-5.0); Albumin Globulin Ratio 1.6 (1.0-2.8); Alkaline Phosphatase 83 U/L (38-126); Aspartate Aminotransferase 42 IU/L (14-36); Bilirubin Total 0.3 mg/dL (0.2-1.3); Blood Urea Nitrogen 12 mg/dL (7-17); Calcium 9.2 mg/dL (8.4-10.2); Carbon Dioxide 26 mmol/L (22-32); Chloride 101 mmol/L (98-107); Estimated Glomerular Filt Rate > 60.0 mL/min (>60); Globulin 2.6 g/dL (1.7-4.1); Glucose 139 mg/dL (80-110); HEMOLYSIS < 15 (0-50); Potassium 3.7 mmol/L (3.4-5.1); Sodium 138 mmol/L (137-145); Total Protein 6.7 g/dL (6.3-8.2)
[2018-06-23 14:29] LABS: Hematocrit 39.6 % (36-46); Hemoglobin 12.5 g/dL (12.0-16.0); Mean Corpuscular HGB Conc 31.6 % (30-36); Mean Corpuscular Hemoglobin 27.2 PG (26-34); Mean Corpuscular Volume 85.9 fL (80-100); Platelet Count 99 X10^3/uL (150-400); Red Blood Cell Count 4.61 X10^6/uL (4.0-5.2); Red Cell Distribution Width 19.6 % (11.6-14.8); White Blood Cell Count 3.2 X10^3/uL (4.5-11.0)
[2018-06-23 14:30] LABS: Add Manual Diff / Slide Review YES
[2018-06-23 15:16] LABS: Neutrophils Absolute Manual 2432 /uL (3000-5900); RBC Morphology Normal Morphology; Total Cells Counted 100
[2018-06-30 09:42] LABS: Add Manual Diff / Slide Review NO; Basophils Absolute Auto 0 /uL (0-100); Basophils Percent Auto 0.9 % (0-2); Eosinophils Absolute Auto 100 /uL (0-450); Eosinophils Percent Auto 3.4 % (2-4); Hematocrit 32.1 % (36-46); Hemoglobin 10.6 g/dL (12.0-16.0); Lymphocytes Absolute Auto 800 /uL (1100-4500); Lymphocytes Percent Auto 29.5 % (25-40); Mean Corpuscular HGB Conc 33.1 % (30-36); Mean Corpuscular Volume 84.6 fL (80-100); Monocytes Absolute Auto 600 /uL (0-900); Monocytes Percent Auto 21.6 % (3-14); Neutrophils Absolute Auto 1100 /uL (1500-7000); Neutrophils Percent Auto 44.6 % (50-75); Platelet Count 90 X10^3/uL (150-400); Red Cell Distribution Width 20.1 % (11.6-14.8); White Blood Cell Count 2.6 X10^3/uL (4.5-11.0)
[2018-06-30 09:48] LABS: Alanine Aminotransferase 37 IU/L (9-52); Albumin 3.5 g/dL (3.5-5.0); Albumin Globulin Ratio 1.4 (1.0-2.8); Alkaline Phosphatase 80 U/L (38-126); Aspartate Aminotransferase 44 IU/L (14-36); Bilirubin Total 0.3 mg/dL (0.2-1.3); Blood Urea Nitrogen 10 mg/dL (7-17); Calcium 8.7 mg/dL (8.4-10.2); Carbon Dioxide 28 mmol/L (22-32); Chloride 105 mmol/L (98-107); Estimated Glomerular Filt Rate > 60.0 mL/min (>60); Globulin 2.5 g/dL (1.7-4.1); Glucose 75 mg/dL (80-110); HEMOLYSIS < 15 (0-50); Potassium 3.7 mmol/L (3.4-5.1); Sodium 139 mmol/L (137-145)
[2018-06-30 10:21] LABS: Anisocytosis 1+
--- NOTE | 2018-07-07 08:33 | P.PNONC_ITS ---
PN -Subjective Interval history: 72-year-old female with history Hodgkin's lymphoma and low-grade follicular lymphoma presents now with relapsed classical Hodgkin's lymphoma confirmed by CT-guided bx of left retroperitoneal lymph node 04/25/2018. Patient received first cycle of the chemotherapy with bendamustine and brentuximab on 05/26/2018. Patient up until now has completed 2 cycles of the chemotherapy. Overall she has tolerated well. Patient presents here today for cycle 3. She saw Dr. Rafita Loza on who talked about stem cell transplant. he is leaning towards transplant. It is ultimately Leigh's decision. She has a slight night sweats last night. No fever. No pain. No nausea. She had one transient epigastric cramping, dissipated in 12 hours. Tea helped. No diarrhea. Oncology History Her follicular lymphoma was diagnosed after core needle biopsy of retroperitoneal lymph nodes on 12/27/2008 that showed atypical lymphoid infiltrate most consistent with follicular lymphoma. 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 FLIPI score was 2. She was consulted at [facility] and active surveillance was recommended. Her Hodgkin's lymphoma was diagnosed after skin punch biopsy of a lesion on the right superior upper chest on 05/15/2016 which showed classical Hodgkin's lymphoma involving deep dermis and subcutaneous tissue. Her initial presentation was characterized by raised skin plaques affecting the upper trunk and the facial area. Staging CT scan on 05/30/2016 showed multiple, diffuse, superficial soft tissue nodules (anterior left ear, right ear, upper back, posterior right shoulder, sternoclavicular notch, right lateral aspect of the upper breast, posterior to left scapular and anterior aspect of the right chest wall). The conglomerate adenopathy at the retrocrural and periaortic level overall smaller compared to previous scan reflecting follicular lymphoma. PET-CT on 06/13/2016 showed multiple cutaneous hypermetabolic lesions ([place] 5) involving bilateral neck, just above the right mandibular angle, anterior neck superficial to the thyroid cartilage, chest wall, shoulders and upper arms bilaterally, small left axillary lymph node, extensive retroperitoneal lymphadenpathy most prominent for a bulky left para-aortic lymph nodes measuring 28 x 36 x 75 mm with SUV 11.7, left internal an dexternal iliac lymphadenopathy, right pelvis, cutaneous nodules in the posterior low back and buttocks, Her HD was therefore deemed stage IV. Patient received ABVD from 06/12/2016 through 12/04/2016. After 2 cycles, she had [place] 1 PET response, bleomycin was discontinued. After treatment patient has been on active surveillance. Her CT scan in June of 2017 did not show any evidence of disease recurrence or metastasis. And retroperitoneal lymph nodes were shrinking in size. In early 02/2018, about 1.2 years after she completed ABVD, she developed mild night sweats and dry cough. CT chest abdomen and pelvis on 03/31/2018 showed interval marked increase in the size of retroperitoneal lymphadenopathy most prominent in the left para-aortic space, mildly increased retro-esophageal lymph node sizes and measures up to 12 mm in short axis diameter, by basilar scarring in the lungs and no gross mesenteric adenopathy. On 04/10/2018 patient underwent a bone marrow aspiration biopsy. The hematopathology showed no involvement by lymphoma either follicular or Hodgkin's. Patient underwent PET CT on 04/16/2018. The PET-CT showed hypermetabolic lymph nodes in the posterior mediastinum consi stent with recurrent lymphoma ([place] scale 5) and hypermetabolic retroperitoneal and mesenteric lymph nodes consistent with recurrent lymphoma ([place] scale 5) (stage III). Patient underwent CT-guided biopsy of left retroperitoneal lymph node April 25, 2018. The pathology confirmed the diagnosis of classic Hodgkin's lymphoma. In the comment, it mentioned that the morphologic and immunohistochemical features are compatible with classic Hodgkin's lymphoma. Features are suggestive of but not definitively diagnostic for nodular sclerosis subtype of classical Hodgkin's lymphoma. There is no evidence of an atypical CD10 positive population by immunohistochemical or by flow cytometric analysis (follicular lymphoma was a clinical consideration). Concomitant flow cytometric analysis was without evidence of an atypical B-cell, T-cell or NK cell population. - Patient Self-Reported Symptoms SR Constitution: Fever, Chills, Fatigue/Malaise, Night Sweats SR ears, nose, mouth, throat issues: Cough SR respiratory issues: Cough SR Cardiovascular issues: Palpitations SR Gastrointestinal issues: Change in bowel pattern SR Endocrine issues: Hot flashes - Additional ROS All systems PM: reviewed and no additional remarkable complaints except as stated Home Medications and Allergies Home Medications Medication Instructions Recorded Confirmed Type Probiotic 1 cap PO DAILY #0 07/04/12 06/03/18 History coQ10 (ubiquinol) 250 mg PO DAILY #0 07/04/12 06/03/18 History multivitamin 1 tab PO DAILY #0 07/04/12 06/03/18 History [place]-3 Fish Oil 1 cap PO DAILY 05/15/18 06/03/18 History Protandim 1 dose PO DAILY 05/15/18 06/03/18 History Vitamin D Liquid 1 dose TOPICAL DAILY 05/15/18 06/03/18 History ondansetron HCl [Zofran] 4 mg PO Q6-8H PRN #30 tab 05/27/18 06/03/18 Rx diltiazem CD 180 mg 180 mg PO QPM #90 cap 06/03/18 Rx capsule,extended release 24 hr Allergies Allergy/AdvReac Type Severity Reaction Status Date / Time NSAIDS (Non-Steroidal Allergy Intermediate HIVES Verified 06/03/18 15:26 Anti-Inflamma [NSAIDS (NON-STEROIDAL ANTI-INFLAMMA] amoxicillin [AMOXICILLIN] Allergy Mild rash Verified 06/03/18 15:26 Exam Vital signs: Last Vital Signs Temp 97.7 F 07/07/18 08:53 Pulse 72 07/07/18 08:53 Resp 18 07/07/18 08:53 BP 102/59 L 07/07/18 08:53 Pulse Ox 100 07/07/18 08:53 ECOG 1 Narrative: Constitutional: WDWN, NAD, thin, well groomed, pleasant and cooperative. Accompanied by her friend. HEENT: NCAT, EOMI, PERRLA, anicteric sclera. Neck: Supple, symmetrical, and tracheal midline; No palpable thyromegaly and no palpable lymph nodes. Respiratory: No use of accessory muscles. Clear to auscultation, and no wheezes. Cardiovascular: Regular rate and rhythm, S1 and S2 normal, no murmurs gallops or rubs. No JVD. No pitting edema of lower extremities. Abdomen: Soft, nontender, non-distended, bowel sounds normal, no palpable organomegaly, no hernia, no palpable masses. Lower extremities: No palpable pedal edema. Lymphatic: no palpable lymph nodes in the neck, axillae, or groins. Musculoskeletal: normal gait and station, no clubbing, no cyanosis, no pitting edema. Skin: no rashes, no ulcers, no petechiae Neurological: Awake and alert and oriented x3. CN II-XII grossly intact. No focal motor or sensory deficit. Psychiatric: Good judgment, good insight, normal affect, normal thought process, cooperative, no depression. Results - Labs Laboratory Last Values WBC 2.6 X10^3/uL (4.5-11.0) L 06/30/18 09:20 RBC 3.80 X10^6/uL (4.0-5.2) L 06/30/18 09:20 Hgb 10.6 g/dL (12.0-16.0) L 06/30/18 09:20 Hct 32.1 % (36-46) L 06/30/18 09:20 MCV 84.6 fL (80-100) 06/30/18 09:20 MCH 28.0 PG (26-34) 06/30/18 09:20 MCHC 33.1 % (30-36) 06/30/18 09:20 RDW 20.1 % (11.6-14.8) H 06/30/18 09:20 Plt Count 90 X10^3/uL (150-400) L 06/30/18 09:20 Neut % (Auto) 44.6 % (50-75) L 06/30/18 09:20 Lymph % (Auto) 29.5 % (25-40) 06/30/18 09:20 [place] % (Auto) 21.6 % (3-14) H 06/30/18 09:20 Eos % (Auto) 3.4 % (2-4) 06/30/18 09:20 Baso % (Auto) 0.9 % (0-2) 06/30/18 09:20 Neut # (Auto) 1100 /uL (2091-1949) L 06/30/18 09:20 Lymph # (Auto) 800 /uL (6682-8412) L 06/30/18 09:20 [place] # (Auto) 600 /uL (0-900) 06/30/18 09:20 Eos # (Auto) 100 /uL (0-450) 06/30/18 09:20 Baso # (Auto) 0 /uL (0-100) 06/30/18 09:20 Total Counted 100 06/23/18 09:30 Seg Neutrophils % 58.0 % (38-70) 06/23/18 09:30 Band Neutrophils % 18.0 % (3-7) H 06/23/18 09:30 Lymphocytes % (Manual) 6.0 % (25-45) L 06/23/18 09:30 Atypical Lymphs % 3.0 % (-0) H 06/23/18 09:30 Monocytes % (Manual) 14.0 % (2-11) H 06/23/18 09:30 Eosinophils % (Manual) 2.0 % (2-4) 06/16/18 10:42 Basophils % (Manual) 1.0 % (0-1) 06/23/18 09:30 Neutrophils # (Manual) 2432 /uL (9816-7094) L 06/23/18 09:30 Platelet Estimate Decreased on smear 06/09/18 09:16 RBC Morphology See below 06/30/18 09:20 Anisocytosis 1+ H 06/30/18 09:20 ESR 83 MM/HR (0-20) H 05/22/18 08:36 PT 14.2 SECONDS (10.1-12.7) H 04/24/18 14:15 INR 1.2 (0.9-1.3) 04/24/18 14:15 Sodium 139 mmol/L (137-145) 06/30/18 09:20 Potassium 3.7 mmol/L (3.4-5.1) 06/30/18 09:20 Chloride 105 mmol/L (98-107) 06/30/18 09:20 Carbon Dioxide 28 mmol/L (22-32) 06/30/18 09:20 BUN 10 mg/dL (7-17) 06/30/18 09:20 Creatinine 0.50 mg/dL (0.52-1.04) L 06/30/18 09:20 Estimated GFR > 60.0 mL/min (>60) 06/30/18 09:20 BUN/Creatinine Ratio 20.0 (6-22) 06/30/18 09:20 Glucose 75 mg/dL (80-110) L 06/30/18 09:20 Calcium 8.7 mg/dL (8.4-10.2) 06/30/18 09:20 Total Bilirubin 0.3 mg/dL (0.2-1.3) 06/30/18 09:20 AST 44 IU/L (14-36) H 06/30/18 09:20 ALT 37 IU/L (9-52) 06/30/18 09:20 Alkaline Phosphatase 80 U/L (38-126) 06/30/18 09:20 Lactate Dehydrogenase 535 U/L (313-618) 05/22/18 08:36 Total Protein 6.0 g/dL (6.3-8.2) L 06/30/18 09:20 Albumin 3.5 g/dL (3.5-5.0) 06/30/18 09:20 Globulin 2.5 g/dL (1.7-4.1) 06/30/18 09:20 Albumin/Globulin Ratio 1.4 (1.0-2.8) 06/30/18 09:20 Hep Bs Antigen Negative s/c (NEGATIVE) 05/15/18 14:32 Hep Bs Antibody Nonreactive (Nonreactive) 05/15/18 15:31 Hep B Core Total Ab Nonreactive (Nonreactive) 05/15/18 15:31 Hep B Core IgM Ab Nonreactive (Nonreactive) 05/15/18 15:31 Hepatitis C Antibody Negative s/c (NEGATIVE) 05/15/18 14:32 Assessment and Plan (1) Hodgkins lymphoma in relapse Problem details: 1. Stage IV classical HD, diagnosed after skin punch biopsy of a lesion on the right superior upper chest on 05/15/2016. CT and PET scan staging showed extensive multiple superfical soft tissues of the skin and retroperitoneal lymphadenpathy (stage IV) 2. Patient received ABVD from 06/12/2016 through 12/04/2016. After 2 cycles, she had [place] 1 PET response, bleomycin was discontinued. 3. Replased in 02/2018, with B symptoms. Confirmed by CT guided retroperitoneal biopsy on 04/25/2018. PET showed above and below diaphram involvement, with negative BMA/BX. Stage III. Assessment: 72 year old with relapsed HD now on salvage chemotherapy with Bendamustine/Brentuximab. Patient completed the 2 cycles of the chemotherapy. Patient saw Dr. Lv Loza at the [facility]. Have not received the consult note yet. According to patient, Dr. Loza agreed with the chemotherapy and recommended bone marrow transplant. Patient has not made up her mind yet. Patient understood it is up to her to make the final decision regarding stem cell transplant. I reviewed patient's laboratory tests. Patient has a leukopenia and thrombocytopenia. I will delay the chemotherapy to Sat of this week. Plan: 1. Delay cycle 3 Brentuxmab/Bendamustine to 07/09/2018 Check CBC, CMP, LDH on 07/09/2018 prior to chemo 2. Requesting Dr. Gail Loza's consult note 3. Visit with Dr Ayad Hernandez as scheduled. 4. RTC MD 07/10/2018 visit (2) Follicular lymphoma Problem details: Follicular lymphoma diagnosed by needle core biopsy of retroperitoneal lymph nodes on 12/27/2008 that showed atypical lymphoid infiltrate most consistent with follicular lymphoma. He also had bone marrow aspiration and biopsy were performed on 12/24/2008 that showed normal cellular marrow with low level involvement by follicular lymphoma positive for t(14:18)( q32:q21) involving the BCL2 chain by FISH. FLIPI score was 2. She was consulted at [facility] and active surveillance was recommended. Until now there has been no evidence to suggest recurrence or transformation of her underlying follicular lymphoma. Assessment and Plan: No evidence of recurrence. The CT-guided biopsy of the retroperitoneal lymph node showed no evidence of follicular lymphoma.
[2018-07-07 08:53] VITALS: BP 102/59; PULSE 72; RESP 18; TEMP 36.5; O2SAT 100
[2018-07-09 09:54] LABS: Add Manual Diff / Slide Review NO; Basophils Absolute Auto 0 /uL (0-100); Eosinophils Absolute Auto 100 /uL (0-450); Eosinophils Percent Auto 1.5 % (2-4); Hematocrit 36.9 % (36-46); Lymphocytes Absolute Auto 1200 /uL (1100-4500); Lymphocytes Percent Auto 34.7 % (25-40); Mean Corpuscular HGB Conc 32.6 % (30-36); Mean Corpuscular Volume 85.8 fL (80-100); Monocytes Absolute Auto 800 /uL (0-900); Neutrophils Absolute Auto 1300 /uL (1500-7000); Neutrophils Percent Auto 39.8 % (50-75); Platelet Count 144 X10^3/uL (150-400); Red Cell Distribution Width 20.6 % (11.6-14.8); White Blood Cell Count 3.4 X10^3/uL (4.5-11.0)
[2018-07-09 10:09] LABS: Alanine Aminotransferase 33 IU/L (9-52); Albumin 4.2 g/dL (3.5-5.0); Albumin Globulin Ratio 1.7 (1.0-2.8); Alkaline Phosphatase 81 U/L (38-126); Aspartate Aminotransferase 46 IU/L (14-36); BUN Creatinine Ratio 18.6 (6-22); Bilirubin Total 0.2 mg/dL (0.2-1.3); Blood Urea Nitrogen 13 mg/dL (7-17); Calcium 9.1 mg/dL (8.4-10.2); Carbon Dioxide 27 mmol/L (22-32); Chloride 104 mmol/L (98-107); Estimated Glomerular Filt Rate > 60.0 mL/min (>60); Globulin 2.5 g/dL (1.7-4.1); Glucose 87 mg/dL (80-110); HEMOLYSIS < 15 (0-50); Sodium 139 mmol/L (137-145); Total Protein 6.7 g/dL (6.3-8.2)
[2018-07-09 10:17] LABS: Anisocytosis 1+; Microcytosis 1+
[2018-07-09] MEDS: methylPREDNISolone 125 MG/2 ML VIAL 100 MG IV (11:05)
[2018-07-09] MEDS: diphenhydrAMINE 25 MG TABLET 50 MG PO (11:05)
[2018-07-09 11:15] VITALS: BP 108/60; PULSE 75; RESP 16; TEMP 36.8; O2SAT 98
[2018-07-09] MEDS: ONDANSETRON 16 MG in SODIUM CHLORIDE 0.9% 50 ML 232 ML IV (11:22)
[2018-07-09] MEDS: SODIUM CHLORIDE 0.9% 100 ML 20 ML IV (11:25)
[2018-07-09] MEDS: BRENTUXIMAB VEDOTIN IV (12:04)
[2018-07-09] MEDS: SODIUM CHLORIDE 0.9% IV (12:04)
[2018-07-09] MEDS: BENDAMUSTINE IV (12:51)
[2018-07-09] MEDS: NORMAL SALINE IV (12:51)
--- NOTE | 2018-07-10 08:31 | ONC.PN ---
PN -Subjective Interval history: 72-year-old female with history Hodgkin's lymphoma and low-grade follicular lymphoma presents now with relapsed classical Hodgkin's lymphoma confirmed by CT-guided bx of left retroperitoneal lymph node 04/25/2018. Patient received first cycle of the chemotherapy with bendamustine and brentuximab on 05/26/2018. Patient now is the second day of cycle 3 with bendamustine and rituximab. Patient has tolerated very well. Patient presents here today for discussion of the decision making regarding the next step especially autologous stem cell transplant at [facility]. Patient has lot of questions. Clinically, she does not have fever or chills. She does not have nausea vomiting. She does not have tingling numbing of hands or feet. Oncology History Her follicular lymphoma was diagnosed after core needle biopsy of retroperitoneal lymph nodes on 12/27/2008 that showed atypical lymphoid infiltrate most consistent with follicular lymphoma. 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 FLIPI score was 2. She was consulted at [facility] and active surveillance was recommended. Her Hodgkin's lymphoma was diagnosed after skin punch biopsy of a lesion on the right superior upper chest on 05/15/2016 which showed classical Hodgkin's lymphoma involving deep dermis and subcutaneous tissue. Her initial presentation was characterized by raised skin plaques affecting the upper trunk and the facial area. Staging CT scan on 05/30/2016 showed multiple, diffuse, superficial soft tissue nodules (anterior left ear, right ear, upper back, posterior right shoulder, sternoclavicular notch, right lateral aspect of the upper breast, posterior to left scapular and anterior aspect of the right chest wall). The conglomerate adenopathy at the retrocrural and periaortic level overall smaller compared to previous scan reflecting follicular lymphoma. PET-CT on 06/13/2016 showed multiple cutaneous hypermetabolic lesions ([place] 5) involving bilateral neck, just above the right mandibular angle, anterior neck superficial to the thyroid cartilage, chest wall, shoulders and upper arms bilaterally, small left axillary lymph node, extensive retroperitoneal lymphadenpathy most prominent for a bulky left para-aortic lymph nodes measuring 28 x 36 x 75 mm with SUV 11.7, left internal an dexternal iliac lymphadenopathy, right pelvis, cutaneous nodules in the posterior low back and buttocks, Her HD was therefore deemed stage IV. Patient received ABVD from 06/12/2016 through 12/04/2016. After 2 cycles, she had [place] 1 PET response, bleomycin was discontinued. After treatment patient has been on active surveillance. Her CT scan in June of 2017 did not show any evidence of disease recurrence or metastasis. And retroperitoneal lymph nodes were shrinking in size. In early 02/2018, about 1.2 years after she completed ABVD, she developed mild night sweats and dry cough. CT chest abdomen and pelvis on 03/31/2018 showed interval marked increase in the size of retroperitoneal lymphadenopathy most prominent in the left para-aortic space, mildly increased retro-esophageal lymph node sizes and measures up to 12 mm in short axis diameter, by basilar scarring in the lungs and no gross mesenteric adenopathy. On 04/10/2018 patient underwent a bone marrow aspiration biopsy. The hematopathology showed no involvement by lymphoma either follicular or Hodgkin's. Patient underwent PET CT on 04/16/2018. The PET-CT showed hypermetabolic lymph nodes in the posterior mediastinum consistent with recurrent lymphoma ([place] scale 5) and hypermetabolic retroperitoneal and mesenteric lymph nodes consistent with recurrent lymphoma ([place] scale 5) (stage III). Patient underwent CT-guided biopsy of left retroperitoneal lymph node April 25, 2018. The pathology confirmed the diagnosis of classic Hodgkin's lymphoma. In the comment, it mentioned that the morphologic and immunohistochemical features are compatible with classic Hodgkin's lymphoma. Features are suggestive of but not definitively diagnostic for nodular sclerosis subtype of classical Hodgkin's lymphoma. There is no evidence of an atypical CD10 positive population by immunohistochemical or by flow cytometric analysis (follicular lymphoma was a clinical consideration). Concomitant flow cytometric analysis was without evidence of an atypical B-cell, T-cell or NK cell population. - Patient Self-Reported Symptoms SR Constitution: Fever, Chills, Fatigue/Malaise, Night Sweats SR ears, nose, mouth, throat issues: Cough SR respiratory issues: Cough SR Cardiovascular issues: Palpitations SR Gastrointestinal issues: Change in bowel pattern SR Endocrine issues: Hot flashes - Additional ROS All systems PM: reviewed and no additional remarkable complaints except as stated Home Medications and Allergies Home Medications Medication Instructions Recorded Confirmed Type Probiotic 1 cap PO DAILY #0 07/04/12 07/07/18 History coQ10 (ubiquinol) 250 mg PO DAILY #0 07/04/12 07/07/18 History multivitamin 1 tab PO DAILY #0 07/04/12 07/07/18 History Royal-3 Fish Oil 1 cap PO DAILY 05/15/18 07/07/18 History Protandim 1 dose PO DAILY 05/15/18 07/07/18 History Vitamin D Liquid 1 dose TOPICAL DAILY 05/15/18 07/07/18 History ondansetron HCl [Zofran] 4 mg PO Q6-8H PRN #30 tab 05/27/18 07/07/18 Rx diltiazem CD 180 mg 180 mg PO QPM #90 cap 06/03/18 07/07/18 Rx capsule,extended release 24 hr Quercitin 07/10/18 History resveratrol DAILY 07/10/18 History Allergies Allergy/AdvReac Type Severity Reaction Status Date / Time NSAIDS (Non-Steroidal Allergy Intermediate HIVES Verified 06/03/18 15:26 Anti-Inflamma [NSAIDS (NON-STEROIDAL ANTI-INFLAMMA] amoxicillin [AMOXICILLIN] Allergy Mild rash Verified 06/03/18 15:26 Exam Vital signs: Vital Signs Temp Pulse Resp BP Pulse Ox 07/09/18 11:15 98.2 F 75 16 108/60 98 Narrative: Constitutional: WDWN, NAD, thin, well groomed, pleasant and cooperative. Accompanied by her friend. HEENT: NCAT, EOMI, PERRLA, anicteric sclera. Neck: Supple, symmetrical, and tracheal midline; No palpable thyromegaly and no palpable lymph nodes. Respiratory: No use of accessory muscles. Clear to auscultation, and no wheezes. Cardiovascular: Regular rate and rhythm, S1 and S2 normal, no murmurs gallops or rubs. No JVD. No pitting edema of lower extremities. Abdomen: Soft, nontender, non-distended, bowel sounds normal, no palpable organomegaly, no hernia, no palpable masses. Lower extremities: No palpable pedal edema. Lymphatic: no palpable lymph nodes in the neck, axillae, or groins. Musculoskeletal: normal gait and station, no clubbing, no cyanosis, no pitting edema. Skin: no rashes, no ulcers, no petechiae Neurological: Awake and alert and oriented x3. CN II-XII grossly intact. No focal motor or sensory deficit. Psychiatric: Good judgment, good insight, normal affect, normal thought process, cooperative, no depression. Results - Labs Laboratory Last Values WBC 3.4 X10^3/uL (4.5-11.0) L 07/09/18 09:40 RBC 4.30 X10^6/uL (4.0-5.2) 07/09/18 09:40 Hgb 12.0 g/dL (12.0-16.0) 07/09/18 09:40 Hct 36.9 % (36-46) 07/09/18 09:40 MCV 85.8 fL (80-100) 07/09/18 09:40 MCH 28.0 PG (26-34) 07/09/18 09:40 MCHC 32.6 % (30-36) 07/09/18 09:40 RDW 20.6 % (11.6-14.8) H 07/09/18 09:40 Plt Count 144 X10^3/uL (150-400) L 07/09/18 09:40 Neut % (Auto) 39.8 % (50-75) L 07/09/18 09:40 Lymph % (Auto) 34.7 % (25-40) 07/09/18 09:40 [place] % (Auto) 23.0 % (3-14) H 07/09/18 09:40 Eos % (Auto) 1.5 % (2-4) L 07/09/18 09:40 Baso % (Auto) 1.0 % (0-2) 07/09/18 09:40 Neut # (Auto) 1300 /uL (7044-3419) L 07/09/18 09:40 Lymph # (Auto) 1200 /uL (7980-1893) 07/09/18 09:40 [place] # (Auto) 800 /uL (0-900) 07/09/18 09:40 Eos # (Auto) 100 /uL (0-450) 07/09/18 09:40 Baso # (Auto) 0 /uL (0-100) 07/09/18 09:40 Total Counted 100 06/23/18 09:30 Seg Neutrophils % 58.0 % (38-70) 06/23/18 09:30 Band Neutrophils % 18.0 % (3-7) H 06/23/18 09:30 Lymphocytes % (Manual) 6.0 % (25-45) L 06/23/18 09:30 Atypical Lymphs % 3.0 % (-0) H 06/23/18 09:30 Monocytes % (Manual) 14.0 % (2-11) H 06/23/18 09:30 Eosinophils % (Manual) 2.0 % (2-4) 06/16/18 10:42 Basophils % (Manual) 1.0 % (0-1) 06/23/18 09:30 Neutrophils # (Manual) 2432 /uL (9133-3585) L 06/23/18 09:30 Platelet Estimate Decreased on smear 06/09/18 09:16 RBC Morphology See below 07/09/18 09:40 Anisocytosis 1+ H 07/09/18 09:40 Microcytosis 1+ H 07/09/18 09:40 ESR 83 MM/HR (0-20) H 05/22/18 08:36 PT 14.2 SECONDS (10.1-12.7) H 04/24/18 14:15 INR 1.2 (0.9-1.3) 04/24/18 14:15 Sodium 139 mmol/L (137-145) 07/09/18 08:10 Potassium 4.0 mmol/L (3.4-5.1) 07/09/18 08:10 Chloride 104 mmol/L (98-107) 07/09/18 08:10 Carbon Dioxide 27 mmol/L (22-32) 07/09/18 08:10 BUN 13 mg/dL (7-17) 07/09/18 08:10 Creatinine 0.70 mg/dL (0.52-1.04) 07/09/18 08:10 Estimated GFR > 60.0 mL/min (>60) 07/09/18 08:10 BUN/Creatinine Ratio 18.6 (6-22) 07/09/18 08:10 Glucose 87 mg/dL (80-110) 07/09/18 08:10 Calcium 9.1 mg/dL (8.4-10.2) 07/09/18 08:10 Total Bilirubin 0.2 mg/dL (0.2-1.3) 07/09/18 08:10 AST 46 IU/L (14-36) H 07/09/18 08:10 ALT 33 IU/L (9-52) 07/09/18 08:10 Alkaline Phosphatase 81 U/L (38-126) 07/09/18 08:10 Lactate Dehydrogenase 535 U/L (313-618) 05/22/18 08:36 Total Protein 6.7 g/dL (6.3-8.2) 07/09/18 08:10 Albumin 4.2 g/dL (3.5-5.0) 07/09/18 08:10 Globulin 2.5 g/dL (1.7-4.1) 07/09/18 08:10 Albumin/Globulin Ratio 1.7 (1.0-2.8) 07/09/18 08:10 Hep Bs Antigen Negative s/c (NEGATIVE) 05/15/18 14:32 Hep Bs Antibody Nonreactive (Nonreactive) 05/15/18 15:31 Hep B Core Total Ab Nonreactive (Nonreactive) 05/15/18 15:31 Hep B Core IgM Ab Nonreactive (Nonreactive) 05/15/18 15:31 Hepatitis C Antibody Negative s/c (NEGATIVE) 05/15/18 14:32 Assessment and Plan (1) Hodgkins lymphoma in relapse Assessment: 1. Stage IV classical HD, diagnosed after skin punch biopsy of a lesion on the right superior upper chest on 05/15/2016. CT and PET scan staging showed extensive multiple superfical soft tissues of the skin and retroperitoneal lymphadenpathy (stage IV) 2. Patient received ABVD from 06/12/2016 through 12/04/2016. After 2 cycles, she had [place] 1 PET response, bleomycin was discontinued. 3. Replased in 02/2018, with B symptoms. Confirmed by CT guided retroperitoneal biopsy on 04/25/2018. PET showed above and below diaphragm involvement, with negative BMA/BX. Stage III. She was started on salvage chemotherapy with Bendamustine/Brentuximab on 05/26/2018. She is now on day 2 of cycle 3. We will proceed with the second day treatment as scheduled. Patient has extensive or questions regarding the autologous stem cell transplant. She apparently is very much worried about the toxicity and the quality of time. She is scheduled to see Dr. Ayad Haider next Saturday. Plan: 1. Ok to proceed to cycle 3 day 2 Brentuxmab/Bendamustine 2. Visit with Dr Ayad Hernandez as scheduled. 3. RTC MD 07/21/2018 visit, CBC, CMP. (2) Follicular lymphoma Problem details: Follicular lymphoma diagnosed by needle core biopsy of retroperitoneal lymph nodes on 12/27/2008 that showed atypical lymphoid infiltrate most consistent with follicular lymphoma. 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 FLIPI score was 2. She was consulted at [facility] and active surveillance was recommended. Until now there has been no evidence to suggest recurrence or transformation of her underlying follicular lymphoma. Assessment and Plan: No evidence of recurrence. The CT-guided biopsy of the retroperitoneal lymph node showed no evidence of follicular lymphoma.
[2018-07-10 08:53] VITALS: BP 121/66; PULSE 78; RESP 16; TEMP 36.4; O2SAT 99
[2018-07-10] MEDS: DEXAMETHASONE 12 MG in SODIUM CHLORIDE 0.9% 50 ML 212 ML IV (09:48)
[2018-07-10] MEDS: SODIUM CHLORIDE 0.9% 100 ML 21 ML IV (09:50)
[2018-07-10] MEDS: ONDANSETRON 16 MG in SODIUM CHLORIDE 0.9% 50 ML 232 ML IV (10:10)
[2018-07-10] MEDS: NORMAL SALINE IV (10:47)
[2018-07-10] MEDS: BENDAMUSTINE IV (10:47)
--- NOTE | 2018-07-14 16:11 | ONC.SCHED ---
Patient called, returned her call regarding reports she wanted.
--- NOTE | 2018-07-14 16:11 | ONC.SCHED ---
No answer so left VM on returning her call.
--- NOTE | 2018-07-21 10:03 | ONC.PN ---
PN -Subjective Interval history: 72-year-old female with history Hodgkin's lymphoma and low-grade follicular lymphoma presents now with relapsed classical Hodgkin's lymphoma confirmed by CT-guided bx of left retroperitoneal lymph node 04/25/2018. Patient started salvage chemotherapy with bendamustine and brentuximab on 05/26/2018. Patient now is on day 15 of cycle 3 with bendamustine and rituximab. She tolerated well. Recently, she saw Dr. Ayad Hernandez on 07/15/2018 for third opinion at [facility]. Dr. Ayad Haider spent at least 90 min with patient outlining the standard treatment pathway and alternative new options. Patient presents today for discussion of continued care. Clinically, she is complaining occurrence of one time night sweats since her last visit. No fever. No weight loss. She does not have nausea vomiting. She does not have tingling numbing of hands or feet. Oncology History Her follicular lymphoma was diagnosed after core needle biopsy of retroperitoneal lymph nodes on 12/27/2008 that showed atypical lymphoid infiltrate most consistent with follicular lymphoma. 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 FLIPI score was 2. She was consulted at [facility] and active surveillance was recommended. Her Hodgkin's lymphoma was diagnosed after skin punch biopsy of a lesion on the right superior upper chest on 05/15/2016 which showed classical Hodgkin's lymphoma involving deep dermis and subcutaneous tissue. Her initial presentation was characterized by raised skin plaques affecting the upper trunk and the facial area. Staging CT scan on 05/30/2016 showed multiple, diffuse, superficial soft tissue nodules (anterior left ear, right ear, upper back, posterior right shoulder, sternoclavicular notch, right lateral aspect of the upper breast, posterior to left scapular and anterior aspect of the right chest wall). The conglomerate adenopathy at the retrocrural and periaortic level overall smaller compared to previous scan reflecting follicular lymphoma. PET-CT on 06/13/2016 showed multiple cutaneous hypermetabolic lesions ([place] 5) involving bilateral neck, just above the right mandibular angle, anterior neck superficial to the thyroid cartilage, chest wall, shoulders and upper arms bilaterally, small left axillary lymph node, extensive retroperitoneal lymphadenpathy most prominent for a bulky left para-aortic lymph nodes measuring 28 x 36 x 75 mm with SUV 11.7, left internal an dexternal iliac lymphadenopathy, right pelvis, cutaneous nodules in the posterior low back and buttocks, Her HD was therefore deemed stage IV. Patient received ABVD from 06/12/2016 through 12/04/2016. After 2 cycles, she had [place] 1 PET response, bleomycin was discontinued. After treatment patient has been on active surveillance. Her CT scan in June of 2017 did not show any evidence of disease recurrence or metastasis. And retroperitoneal lymph nodes were shrinking in size. In early 02/2018, about 1.2 years after she completed ABVD, she developed mild night sweats and dry cough. CT chest abdomen and pelvis on 03/31/2018 showed interval marked increase in the size of retroperitoneal lymphadenopathy most prominent in the left para-aortic space, mildly increased retro-esophageal lymph node sizes and measures up to 12 mm in short axis diameter, by basilar scarring in the lungs and no gross mesenteric adenopathy. On 04/10/2018 patient underwent a bone marrow aspiration biopsy. The hematopathology showed no involvement by lymphoma either follicular or Hodgkin's. Patient underwent PET CT on 04/16/2018. The PET-CT showed hypermetabolic lymph nodes in the posterior mediastinum consistent with recurrent lymphoma ([place] scale 5) and hypermetabolic retroperitoneal and mesenteric lymph nodes consistent with recurrent lymphoma ([place]ville scale 5) (stage III). Patient underwent CT-guided biopsy of left retroperitoneal lymph node April 25, 2018. The pathology confirmed the diagnosis of classic Hodgkin's lymphoma. In the comment, it mentioned that the morphologic and immunohistochemical features are compatible with classic Hodgkin's lymphoma. Features are suggestive of but not definitively diagnostic for nodular sclerosis subtype of classical Hodgkin's lymphoma. There is no evidence of an atypical CD10 positive population by immunohistochemical or by flow cytometric analysis (follicular lymphoma was a clinical consideration). Concomitant flow cytometric analysis was without evidence of an atypical B-cell, T-cell or NK cell population. - Patient Self-Reported Symptoms SR Constitution: Fever, Chills, Fatigue/Malaise, Night Sweats SR ears, nose, mouth, throat issues: Cough SR respiratory issues: Cough SR Cardiovascular issues: Palpitations SR Gastrointestinal issues: Change in bowel pattern SR Endocrine issues: Hot flashes - Additional ROS All systems PM: reviewed and no additional remarkable complaints except as stated Home Medications and Allergies Home Medications Medication Instructions Recorded Confirmed Type Probiotic 1 cap PO DAILY #0 07/04/12 07/07/18 History coQ10 (ubiquinol) 250 mg PO DAILY #0 07/04/12 07/07/18 History multivitamin 1 tab PO DAILY #0 07/04/12 07/07/18 History [place]-3 Fish Oil 1 cap PO DAILY 05/15/18 07/07/18 History Protandim 1 dose PO DAILY 05/15/18 07/07/18 History Vitamin D Liquid 1 dose TOPICAL DAILY 05/15/18 07/07/18 History ondansetron HCl [Zofran] 4 mg PO Q6-8H PRN #30 tab 05/27/18 07/07/18 Rx diltiazem CD 180 mg 180 mg PO QPM #90 cap 06/03/18 07/07/18 Rx capsule,extended release 24 hr Quercitin 07/10/18 History resveratrol DAILY 07/10/18 History Allergies Allergy/AdvReac Type Severity Reaction Status Date / Time NSAIDS (Non-Steroidal Allergy Intermediate HIVES Verified 06/03/18 15:26 Anti-Inflamma [NSAIDS (NON-STEROIDAL ANTI-INFLAMMA] amoxicillin [AMOXICILLIN] Allergy Mild rash Verified 06/03/18 15:26 Exam Vital signs: Last Vital Signs Temp 98.6 F 07/21/18 16:38 Pulse 84 07/21/18 16:38 Resp 18 07/21/18 16:38 BP 138/70 07/21/18 16:38 Pulse Ox 100 07/21/18 16:38 ECOG 1 Narrative: Constitutional: WDWN, NAD, thin, well groomed, pleasant and cooperative. Accompanied by her friend. HEENT: NCAT, EOMI, PERRLA, anicteric sclera. Neck: Supple, symmetrical, and tracheal midline; No palpable thyromegaly and no palpable lymph nodes. Respiratory: No use of accessory muscles. Clear to auscultation, and no wheezes. Cardiovascular: Regular rate and rhythm, S1 and S2 normal, no murmurs gallops or rubs. Abdomen: Soft, nontender, non-distended, bowel sounds normal, no palpable organomegaly, no hernia, no palpable masses. Lower extremities: No palpable pedal edema. Lymphatic: no palpable lymph nodes in the neck, axillae, or groins. Musculoskeletal: normal gait and station, no clubbing, no cyanosis, no pitting edema. Skin: no rashes, no ulcers, no petechiae Neurological: Awake and alert and oriented x3. CN II-XII grossly intact. No focal motor or sensory deficit. Psychiatric: Good judgment, good insight, normal affect, normal thought process, cooperative, no depression. Results - Labs Laboratory Last Values WBC 2.5 X10^3/uL (4.5-11.0) L 07/21/18 15:21 RBC 3.84 X10^6/uL (4.0-5.2) L 07/21/18 15:21 Hgb 11.2 g/dL (12.0-16.0) L 07/21/18 15:21 Hct 33.0 % (36-46) L 07/21/18 15:21 MCV 85.9 fL (80-100) 07/21/18 15:21 MCH 29.1 PG (26-34) 07/21/18 15:21 MCHC 33.9 % (30-36) 07/21/18 15:21 RDW 20.5 % (11.6-14.8) H 07/21/18 15:21 Plt Count 95 X10^3/uL (150-400) L 07/21/18 15:21 Neut % (Auto) Not Reportable 07/21/18 15:21 Lymph % (Auto) Not Reportable 07/21/18 15:21 [place] % (Auto) Not Reportable 07/21/18 15:21 Eos % (Auto) Not Reportable 07/21/18 15:21 Baso % (Auto) Not Reportable 07/21/18 15:21 Neut # (Auto) 1300 /uL (3419-9624) L 07/09/18 09:40 Lymph # (Auto) Not Reportable 07/21/18 15:21 [place] # (Auto) Not Reportable 07/21/18 15:21 Eos # (Auto) 100 /uL (0-450) 07/09/18 09:40 Baso # (Auto) Not Reportable 07/21/18 15:21 Total Counted 100 07/21/18 15:21 Seg Neutrophils % 52.0 % (38-70) 07/21/18 15:21 Band Neutrophils % 7.0 % (3-7) 07/21/18 15:21 Lymphocytes % (Manual) 11.0 % (25-45) L 07/21/18 15:21 Atypical Lymphs % 3.0 % (-0) H 06/23/18 09:30 Monocytes % (Manual) 25.0 % (2-11) H 07/21/18 15:21 Eosinophils % (Manual) 4.0 % (2-4) 07/21/18 15:21 Basophils % (Manual) 1.0 % (0-1) 07/21/18 15:21 Neutrophils # (Manual) 1475 /uL (5824-7603) L 07/21/18 15:21 Platelet Estimate Decreased on smear 07/21/18 15:21 Plt Morphology Comment Note 07/21/18 15:21 RBC Morphology Normal morphology 07/21/18 15:21 Anisocytosis 1+ H 07/09/18 09:40 Microcytosis 1+ H 07/09/18 09:40 ESR 83 MM/HR (0-20) H 05/22/18 08:36 PT 14.2 SECONDS (10.1-12.7) H 04/24/18 14:15 INR 1.2 (0.9-1.3) 04/24/18 14:15 Sodium 135 mmol/L (137-145) L 07/21/18 15:21 Potassium 3.6 mmol/L (3.4-5.1) 07/21/18 15:21 Chloride 101 mmol/L (98-107) 07/21/18 15:21 Carbon Dioxide 27 mmol/L (22-32) 07/21/18 15:21 BUN 12 mg/dL (7-17) 07/21/18 15:21 Creatinine 0.60 mg/dL (0.52-1.04) 07/21/18 15:21 Estimated GFR > 60.0 mL/min (>60) 07/21/18 15:21 BUN/Creatinine Ratio 20.0 (6-22) 07/21/18 15:21 Glucose 114 mg/dL (80-110) H 07/21/18 15:21 Calcium 8.7 mg/dL (8.4-10.2) 07/21/18 15:21 Total Bilirubin 0.3 mg/dL (0.2-1.3) 07/21/18 15:21 AST 46 IU/L (14-36) H 07/21/18 15:21 ALT 37 IU/L (9-52) 07/21/18 15:21 Alkaline Phosphatase 80 U/L (38-126) 07/21/18 15:21 Lactate Dehydrogenase 535 U/L (313-618) 05/22/18 08:36 Total Protein 6.4 g/dL (6.3-8.2) 07/21/18 15:21 Albumin 3.9 g/dL (3.5-5.0) 07/21/18 15:21 Globulin 2.5 g/dL (1.7-4.1) 07/21/18 15:21 Albumin/Globulin Ratio 1.6 (1.0-2.8) 07/21/18 15:21 Hep Bs Antigen Negative s/c (NEGATIVE) 05/15/18 14:32 Hep Bs Antibody Nonreactive (Nonreactive) 05/15/18 15:31 Hep B Core Total Ab Nonreactive (Nonreactive) 05/15/18 15:31 Hep B Core IgM Ab Nonreactive (Nonreactive) 05/15/18 15:31 Hepatitis C Antibody Negative s/c (NEGATIVE) 05/15/18 14:32 Assessment and Plan (1) Hodgkins lymphoma in relapse Overview: 1. Stage IV classical HD, diagnosed after skin punch biopsy of a lesion on the right superior upper chest on 05/15/2016. CT and PET scan staging showed extensive multiple superfical soft tissues of the skin and retroperitoneal lymphadenpathy (stage IV) 2. Patient received ABVD from 06/12/2016 through 12/04/2016. After 2 cycles, she had [place] 1 PET response, bleomycin was discontinued. 3. Relapsed in 02/2018, with B symptoms. Confirmed by CT guided retroperitoneal biopsy on 04/25/2018. PET showed above and below diaphragm involvement, with negative BMA/BX. Stage III. 4. Salvage Bendamustine/B-Vedotin on 05/26/2018. Assessment: I spent at least 25 minutes with patient and her friend. More than 50% is devoted to explaining the current data regarding salvage treatment options and the role of stem cell transplant in the era of new development as well as coordination of care. I did have a phone conversation with Dr. Ayad Haider prior to patient's visit. Patient has always have reservation about proceeding to stem cell transplant. Now, she told me that she has decided not to proceed to stem cell transplant especially out of concern for the toxicity of the transplant. She is interested in pursuing immunotherapy. I explained that my recommendation is to get the most mileage from the current treatment (Bendamustine / B-vedotin) until prohibitory toxicity or disease progression, then proceed to immunotherapy. Patient eventually agreed. She and her friend will also try to find more information regarding the role and toxicity of immunotherapy. Plan: 1. PET/CT whole body 2. RTC 07/28/2018 visit, CBC, CMP. (2) Follicular lymphoma Problem details: Follicular lymphoma diagnosed by needle core biopsy of retroperitoneal lymph nodes on 12/27/2008 that showed atypical lymphoid infiltrate most consistent with follicular lymphoma. 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 FLIPI score was 2. She was consulted at [facility] and active surveillance was recommended. Until now there has been no evidence to suggest recurrence or transformation of her underlying follicular lymphoma. Assessment and Plan: No evidence of recurrence. The CT-guided biopsy of the retroperitoneal lymph node showed no evidence of follicular lymphoma.
[2018-07-21 15:45] LABS: Add Manual Diff / Slide Review YES; Hemoglobin 11.2 g/dL (12.0-16.0); Mean Corpuscular HGB Conc 33.9 % (30-36); Mean Corpuscular Hemoglobin 29.1 PG (26-34); Mean Corpuscular Volume 85.9 fL (80-100); Platelet Count 95 X10^3/uL (150-400); Red Blood Cell Count 3.84 X10^6/uL (4.0-5.2); Red Cell Distribution Width 20.5 % (11.6-14.8); White Blood Cell Count 2.5 X10^3/uL (4.5-11.0)
[2018-07-21 15:57] LABS: Alanine Aminotransferase 37 IU/L (9-52); Albumin 3.9 g/dL (3.5-5.0); Albumin Globulin Ratio 1.6 (1.0-2.8); Alkaline Phosphatase 80 U/L (38-126); Aspartate Aminotransferase 46 IU/L (14-36); Bilirubin Total 0.3 mg/dL (0.2-1.3); Blood Urea Nitrogen 12 mg/dL (7-17); Calcium 8.7 mg/dL (8.4-10.2); Carbon Dioxide 27 mmol/L (22-32); Chloride 101 mmol/L (98-107); Estimated Glomerular Filt Rate > 60.0 mL/min (>60); Globulin 2.5 g/dL (1.7-4.1); Glucose 114 mg/dL (80-110); HEMOLYSIS < 15 (0-50); Potassium 3.6 mmol/L (3.4-5.1); Sodium 135 mmol/L (137-145); Total Protein 6.4 g/dL (6.3-8.2)
[2018-07-21 16:38] VITALS: BP 138/70; PULSE 84; RESP 18; TEMP 37; O2SAT 100
[2018-07-21 16:49] LABS: Neutrophils Absolute Manual 1475 /uL (3000-5900); Total Cells Counted 100
[2018-07-21 16:50] LABS: Platelet Estimate Decreased on smear; Platelet Morphology Comment NOTE; RBC Morphology Normal Morphology
--- NOTE | 2018-07-24 13:36 | ONC.SCHED ---
Faxed all of June's Physician notes to [facility], as requested for PET/CT scan authorization
[2018-07-28 11:13] LABS: Add Manual Diff / Slide Review NO; Basophils Absolute Auto 100 /uL (0-100); Basophils Percent Auto 1.9 % (0-2); Eosinophils Absolute Auto 100 /uL (0-450); Eosinophils Percent Auto 2.9 % (2-4); Hematocrit 34.3 % (36-46); Hemoglobin 11.4 g/dL (12.0-16.0); Lymphocytes Absolute Auto 600 /uL (1100-4500); Lymphocytes Percent Auto 20.9 % (25-40); Mean Corpuscular HGB Conc 33.1 % (30-36); Mean Corpuscular Hemoglobin 28.2 PG (26-34); Mean Corpuscular Volume 85.3 fL (80-100); Monocytes Absolute Auto 900 /uL (0-900); Monocytes Percent Auto 29.7 % (3-14); Neutrophils Absolute Auto 1400 /uL (1500-7000); Neutrophils Percent Auto 44.6 % (50-75); Platelet Count 136 X10^3/uL (150-400); Red Blood Cell Count 4.02 X10^6/uL (4.0-5.2); Red Cell Distribution Width 20.4 % (11.6-14.8); White Blood Cell Count 3.1 X10^3/uL (4.5-11.0)
[2018-07-28 11:27] LABS: Alanine Aminotransferase 38 IU/L (9-52); Albumin 3.9 g/dL (3.5-5.0); Albumin Globulin Ratio 1.4 (1.0-2.8); Alkaline Phosphatase 84 U/L (38-126); Aspartate Aminotransferase 46 IU/L (14-36); BUN Creatinine Ratio 21.7 (6-22); Bilirubin Total 0.3 mg/dL (0.2-1.3); Blood Urea Nitrogen 13 mg/dL (7-17); Calcium 8.9 mg/dL (8.4-10.2); Carbon Dioxide 27 mmol/L (22-32); Chloride 101 mmol/L (98-107); Estimated Glomerular Filt Rate > 60.0 mL/min (>60); Globulin 2.7 g/dL (1.7-4.1); Glucose 91 mg/dL (80-110); HEMOLYSIS < 15 (0-50); Sodium 136 mmol/L (137-145); Total Protein 6.6 g/dL (6.3-8.2)
[2018-07-28] MEDS: diphenhydrAMINE 25 MG TABLET 50 MG PO (12:26)
[2018-07-28] MEDS: methylPREDNISolone 125 MG/2 ML VIAL 100 MG IV (12:27)
[2018-07-28 12:51] LABS: Anisocytosis 1+; Hypochromasia 1+; Platelet Estimate Decreased on smear
[2018-07-28 12:52] LABS: Ovalocytes 1+; Poikilocytosis 1+
[2018-07-28] MEDS: ONDANSETRON 16 MG in SODIUM CHLORIDE 0.9% 50 ML 232 ML IV (13:07)
[2018-07-28] MEDS: SODIUM CHLORIDE 0.9% 100 ML 20 ML IV (13:08)
[2018-07-28] MEDS: BRENTUXIMAB VEDOTIN IV (13:59)
[2018-07-28] MEDS: SODIUM CHLORIDE 0.9% IV (13:59)
[2018-07-28 14:03] VITALS: BP 107/71; PULSE 88; RESP 16; TEMP 37.1; O2SAT 98
[2018-07-28] MEDS: NORMAL SALINE IV (14:45)
[2018-07-28] MEDS: BENDAMUSTINE IV (14:45)
[2018-07-29] MEDS: DEXAMETHASONE 12 MG in SODIUM CHLORIDE 0.9% 50 ML 212 ML IV (13:49)
[2018-07-29] MEDS: SODIUM CHLORIDE 0.9% 500 ML 1000 ML IV (13:50)
[2018-07-29 14:00] VITALS: BP 120/59; PULSE 60; RESP 18; TEMP 36.6; O2SAT 95
[2018-07-29] MEDS: ONDANSETRON 16 MG in SODIUM CHLORIDE 0.9% 50 ML 232 ML IV (14:19)
[2018-07-29] MEDS: NORMAL SALINE IV (15:04)
[2018-07-29] MEDS: BENDAMUSTINE IV (15:04)
--- NOTE | 2018-07-30 09:59 | ONC.SCHED ---
Spoke with Patient and she does not need to go to the Assistant Inventory Manager that we referred who to [facility]. She said she had a friend who specializes in that and that she would speak with her.
[2018-08-05 14:40] LABS: Hematocrit 35.7 % (36-46); Hemoglobin 12.1 g/dL (12.0-16.0); Mean Corpuscular HGB Conc 33.9 % (30-36); Mean Corpuscular Hemoglobin 28.8 PG (26-34); Mean Corpuscular Volume 84.8 fL (80-100); Platelet Count 98 X10^3/uL (150-400); Red Blood Cell Count 4.21 X10^6/uL (4.0-5.2); Red Cell Distribution Width 19.3 % (11.6-14.8); White Blood Cell Count 3.1 X10^3/uL (4.5-11.0)
[2018-08-05 14:45] LABS: Add Manual Diff / Slide Review YES
[2018-08-05 14:57] LABS: Alanine Aminotransferase 28 IU/L (9-52); Albumin 3.9 g/dL (3.5-5.0); Albumin Globulin Ratio 1.4 (1.0-2.8); Alkaline Phosphatase 78 U/L (38-126); Aspartate Aminotransferase 46 IU/L (14-36); BUN Creatinine Ratio 22.9 (6-22); Bilirubin Total 0.5 mg/dL (0.2-1.3); Blood Urea Nitrogen 16 mg/dL (7-17); Calcium 9.1 mg/dL (8.4-10.2); Carbon Dioxide 27 mmol/L (22-32); Chloride 98 mmol/L (98-107); Estimated Glomerular Filt Rate > 60.0 mL/min (>60); Globulin 2.8 g/dL (1.7-4.1); Glucose 115 mg/dL (80-110); HEMOLYSIS < 15 (0-50); Potassium 4.3 mmol/L (3.4-5.1); Sodium 132 mmol/L (137-145); Total Protein 6.7 g/dL (6.3-8.2)
[2018-08-05 15:18] LABS: Neutrophils Absolute Manual 1953 /uL (3000-5900); Total Cells Counted 100
[2018-08-05 15:19] LABS: Smudge Cells 1+
[2018-08-05 15:20] LABS: Platelet Estimate Decreased on smear
[2018-08-05 15:21] LABS: Anisocytosis 2+; Poikilocytosis 1+
--- NOTE | 2018-08-11 08:33 | ONC.PN ---
PN -Subjective Interval history: 72-year-old female with history Hodgkin's lymphoma and low-grade follicular lymphoma presents now with relapsed classical Hodgkin's lymphoma confirmed by CT-guided bx of left retroperitoneal lymph node 04/25/2018. Patient started salvage chemotherapy with bendamustine and brentuximab on 05/26/2018. Up until now, she has completed 4 cycles of bendamustine and rituximab. On 08/06/2009, patient underwent repeat PET scan. The PET scan showed resolved hypermetabolic lymph nodes and was deemed a [place] 1 response. Recently, she is complaining weakness and short of breath. She developed low-grade fever around 100.2. She also had 1 episode of chills during the night. She denies any sore throat. She said that she can not take a deep breath. Oncology History Her follicular lymphoma was diagnosed after core needle biopsy of retroperitoneal lymph nodes on 12/27/2008 that showed atypical lymphoid infiltrate most consistent with follicular lymphoma. 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 FLIPI score was 2. She was consulted at [facility] and active surveillance was recommended. Her Hodgkin's lymphoma was diagnosed after skin punch biopsy of a lesion on the right superior upper chest on 05/15/2016 which showed classical Hodgkin's lymphoma involving deep dermis and subcutaneous tissue. Her initial presentation was characterized by raised skin plaques affecting the upper trunk and the facial area. Staging CT scan on 05/30/2016 showed multiple, diffuse, superficial soft tissue nodules (anterior left ear, right ear, upper back, posterior right shoulder, sternoclavicular notch, right lateral aspect of the upper breast, posterior to left scapular and anterior aspect of the right chest wall). The conglomerate adenopathy at the retrocrural and periaortic level overall smaller compared to previous scan reflecting follicular lymphoma. PET-CT on 06/13/2016 showed multiple cutaneous hypermetabolic lesions ([place] 5) involving bilateral neck, just above the right mandibular angle, anterior neck superficial to the thyroid cartilage, chest wall, shoulders and upper arms bilaterally, small left axillary lymph node, extensive retroperitoneal lymphadenpathy most prominent for a bulky left para-aortic lymph nodes measuring 28 x 36 x 75 mm with SUV 11.7, left internal an dexternal iliac lymphadenopathy, right pelvis, cutaneous nodules in the posterior low back and buttocks, Her HD was therefore deemed stage IV. Patient received ABVD from 06/12/2016 through 12/04/2016. After 2 cycles, she had [place] 1 PET response, bleomycin was discontinued. After treatment patient has been on active surveillance. Her CT scan in June of 2017 did not show any evidence of disease recurrence or metastasis. And retroperitoneal lymph nodes were shrinking in size. In early 02/2018, about 1.2 years after she completed ABVD, she developed mild night sweats and dry cough. CT chest abdomen and pelvis on 03/31/2018 showed interval marked increase in the size of retroperitoneal lymphadenopathy most prominent in the left para-aortic space, mildly increased retro-esophageal lymph node sizes and measures up to 12 mm in short axis diameter, by basilar scarring in the lungs and no gross mesenteric adenopathy. On 04/10/2018 patient underwent a bone marrow aspiration biopsy. The hematopathology showed no involvement by lymphoma either follicular or Hodgkin's. Patient underwent PET CT on 04/16/2018. The PET-CT showed hypermetabolic lymph nodes in the posterior mediastinum consistent with recurrent lymphoma (Deauville scale 5) and hypermetabolic retroperitoneal and mesenteric lymph nodes consistent with recurrent lymphoma (Deauville scale 5) (stage III). Patient underwent CT-guided biopsy of left retroperitoneal lymph node April 25, 2018. The pathology confirmed the diagnosis of classic Hodgkin's lymphoma. In the comment, it mentioned that the morphologic and immunohistochemical features are compatible with classic Hodgkin's lymphoma. Features are suggestive of but not definitively diagnostic for nodular sclerosis subtype of classical Hodgkin's lymphoma. There is no evidence of an atypical CD10 positive population by immunohistochemical or by flow cytometric analysis (follicular lymphoma was a clinical consideration). Concomitant flow cytometric analysis was without evidence of an atypical B-cell, T-cell or NK cell population. - Patient Self-Reported Symptoms SR Constitution: Fever, Chills, Fatigue/Malaise, Night Sweats SR ears, nose, mouth, throat issues: Cough SR respiratory issues: Cough SR Cardiovascular issues: Palpitations SR Gastrointestinal issues: Change in bowel pattern SR Endocrine issues: Hot flashes - Additional ROS All systems PM: reviewed and no additional remarkable complaints except as stated Home Medications and Allergies Home Medications Medication Instructions Recorded Confirmed Type Probiotic 1 cap PO DAILY #0 07/04/12 07/07/18 History coQ10 (ubiquinol) 250 mg PO DAILY #0 07/04/12 07/07/18 History multivitamin 1 tab PO DAILY #0 07/04/12 07/07/18 History Edna-3 Fish Oil 1 cap PO DAILY 05/15/18 07/07/18 History Protandim 1 dose PO DAILY 05/15/18 07/07/18 History Vitamin D Liquid 1 dose TOPICAL DAILY 05/15/18 07/07/18 History ondansetron HCl [Zofran] 4 mg PO Q6-8H PRN #30 tab 05/27/18 07/07/18 Rx diltiazem CD 180 mg 180 mg PO QPM #90 cap 06/03/18 07/07/18 Rx capsule,extended release 24 hr Quercitin 07/10/18 History resveratrol DAILY 07/10/18 History Allergies Allergy/AdvReac Type Severity Reaction Status Date / Time NSAIDS (Non-Steroidal Allergy Intermediate HIVES Verified 06/03/18 15:26 Anti-Inflamma [NSAIDS (NON-STEROIDAL ANTI-INFLAMMA] amoxicillin [AMOXICILLIN] Allergy Mild rash Verified 06/03/18 15:26 Exam Vital signs: Last Vital Signs Temp 99.4 F 08/11/18 10:41 Pulse 99 H 08/11/18 10:41 Resp 18 08/11/18 10:41 BP 113/63 08/11/18 10:41 Pulse Ox 97 08/11/18 10:41 ECOG 1 Narrative: Constitutional: WDWN, NAD, thin, well groomed, pleasant and cooperative. Accompanied by her friend. HEENT: NCAT, EOMI, PERRLA, anicteric sclera. Neck: Supple, symmetrical, and tracheal midline; No palpable thyromegaly and no palpable lymph nodes. Respiratory: No use of accessory muscles. Clear to auscultation, and no wheezes. Cardiovascular: Regular rate and rhythm, S1 and S2 normal, no murmurs gallops or rubs. Abdomen: Soft, nontender, non-distended, bowel sounds normal, no palpable organomegaly, no hernia, no palpable masses. Lower extremities: No palpable pedal edema. Lymphatic: no palpable lymph nodes in the neck, axillae, or groins. Musculoskeletal: normal gait and station, no clubbing, no cyanosis, no pitting edema. Skin: no rashes, no ulcers, no petechiae Neurological: Awake and alert and oriented x3. CN II-XII grossly intact. No focal motor or sensory deficit. Psychiatric: Good judgment, good insight, normal affect, normal thought process, cooperative, no depression. Results - Labs Laboratory Last Values WBC 3.0 X10^3/uL (4.5-11.0) L 08/11/18 10:20 RBC 3.78 X10^6/uL (4.0-5.2) L 08/11/18 10:20 Hgb 10.9 g/dL (12.0-16.0) L 08/11/18 10:20 Hct 32.1 % (36-46) L 08/11/18 10:20 MCV 85.0 fL (80-100) 08/11/18 10:20 MCH 28.8 PG (26-34) 08/11/18 10:20 MCHC 33.9 % (30-36) 08/11/18 10:20 RDW 19.0 % (11.6-14.8) H 08/11/18 10:20 Plt Count 83 X10^3/uL (150-400) L 08/11/18 10:20 Neut % (Auto) Not Reportable 08/11/18 10:20 Lymph % (Auto) Not Reportable 08/11/18 10:20 Bowie % (Auto) Not Reportable 08/11/18 10:20 Eos % (Auto) Not Reportable 08/11/18 10:20 Baso % (Auto) Not Reportable 08/11/18 10:20 Neut # (Auto) 1400 /uL (1509-0133) L 07/28/18 11:02 Lymph # (Auto) Not Reportable 08/11/18 10:20 Bowie # (Auto) Not Reportable 08/11/18 10:20 Eos # (Auto) 100 /uL (0-450) 07/28/18 11:02 Baso # (Auto) Not Reportable 08/11/18 10:20 Total Counted 100 08/05/18 14:30 Seg Neutrophils % 63.0 % (38-70) 08/05/18 14:30 Band Neutrophils % 7.0 % (3-7) 07/21/18 15:21 Lymphocytes % (Manual) 6.0 % (25-45) L 08/05/18 14:30 Atypical Lymphs % 3.0 % (-0) H 06/23/18 09:30 Monocytes % (Manual) 23.0 % (2-11) H 08/05/18 14:30 Eosinophils % (Manual) 7.0 % (2-4) H 08/05/18 14:30 Basophils % (Manual) 1.0 % (0-1) 07/21/18 15:21 Metamyelocytes % 1.0 % (-0) H 08/05/18 14:30 Neutrophils # (Manual) 1953 /uL (4097-2811) L 08/05/18 14:30 Smudge Cells 1+ H 08/05/18 14:30 Platelet Estimate Decreased on smear 08/05/18 14:30 Plt Morphology Comment Note 07/21/18 15:21 RBC Morphology Not Reportable 08/05/18 14:30 Hypochromasia 1+ H 07/28/18 11:02 Poikilocytosis 1+ H 08/05/18 14:30 Anisocytosis 2+ H 08/05/18 14:30 Microcytosis 1+ H 07/09/18 09:40 Ovalocytes 1+ H 07/28/18 11:02 ESR 83 MM/HR (0-20) H 05/22/18 08:36 PT 14.2 SECONDS (10.1-12.7) H 04/24/18 14:15 INR 1.2 (0.9-1.3) 04/24/18 14:15 Sodium 134 mmol/L (137-145) L 08/11/18 10:20 Potassium 3.3 mmol/L (3.4-5.1) L 08/11/18 10:20 Chloride 99 mmol/L (98-107) 08/11/18 10:20 Carbon Dioxide 29 mmol/L (22-32) 08/11/18 10:20 BUN 9 mg/dL (7-17) 08/11/18 10:20 Creatinine 0.60 mg/dL (0.52-1.04) 08/11/18 10:20 Estimated GFR > 60.0 mL/min (>60) 08/11/18 10:20 BUN/Creatinine Ratio 15.0 (6-22) 08/11/18 10:20 Glucose 115 mg/dL (80-110) H 08/11/18 10:20 Calcium 8.8 mg/dL (8.4-10.2) 08/11/18 10:20 Total Bilirubin 0.5 mg/dL (0.2-1.3) 08/11/18 10:20 AST 50 IU/L (14-36) H 08/11/18 10:20 ALT 33 IU/L (9-52) 08/11/18 10:20 Alkaline Phosphatase 67 U/L (38-126) 08/11/18 10:20 Lactate Dehydrogenase 535 U/L (313-618) 05/22/18 08:36 Total Protein 6.0 g/dL (6.3-8.2) L 08/11/18 10:20 Albumin 3.5 g/dL (3.5-5.0) 08/11/18 10:20 Globulin 2.5 g/dL (1.7-4.1) 08/11/18 10:20 Albumin/Globulin Ratio 1.4 (1.0-2.8) 08/11/18 10:20 Hep Bs Antigen Negative s/c (NEGATIVE) 05/15/18 14:32 Hep Bs Antibody Nonreactive (Nonreactive) 05/15/18 15:31 Hep B Core Total Ab Nonreactive (Nonreactive) 05/15/18 15:31 Hep B Core IgM Ab Nonreactive (Nonreactive) 05/15/18 15:31 Hepatitis C Antibody Negative s/c (NEGATIVE) 05/15/18 14:32 Assessment and Plan (1) Hodgkins lymphoma in relapse Overview: 1. Stage IV classical HD, diagnosed after skin punch biopsy of a lesion on the right superior upper chest on 05/15/2016. CT and PET scan staging showed extensive multiple superfical soft tissues of the skin and retroperitoneal lymphadenpathy (stage IV) 2. Patient received ABVD from 06/12/2016 through 12/04/2016. After 2 cycles, she had [place] 1 PET response, bleomycin was discontinued. 3. Relapsed in 02/2018, with B symptoms. Confirmed by CT guided retroperitoneal biopsy on 04/25/2018. PET showed above and below diaphragm involvement, with negative BMA/BX. Stage III. 4. Salvage Bendamustine/B-Vedotin on 05/26/2018. Assessment: Today I reviewed the PET scan results with the patient. The PET scan clearly showed a [place] 1 response that is negative for evidence of disease. I talked with the patient that since she has responded well, my recommendation is to continue current strategy that is brentuximab/bendamustine for 6 cycles followed by maintenance brentuximab for about a year. Patient voiced understanding. Talked with the patient that if her disease is relapsing again, we would proceed to immunotherapy. Plan: 1. RTC 08/25/2018 visit, CBC, CMP, LDH, Cycle 5# Bendamustine and Brentuximab. (2) Shortness of breath She is complaining significant shortness of breath however the pulse ox is about 97% at the clinic. Patient is also having low-grade fever but no sore throat. The lungs are clear on my physical examination. Given that the patient is receiving brentuximab which is known to cause pulmonary embolism and pneumonitis. I will proceed with CT a today to exclude the diagnosis of possible pulmonary embolism and/or pneumonitis. (3) Follicular lymphoma Problem details: Follicular lymphoma diagnosed by needle core biopsy of retroperitoneal lymph nodes on 12/27/2008 that showed atypical lymphoid infiltrate most consistent with follicular lymphoma. 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 FLIPI score was 2. She was consulted at [facility] and active surveillance was recommended. Until now there has been no evidence to suggest recurrence or transformation of her underlying follicular lymphoma. Assessment and Plan: No evidence of recurrence. The CT-guided biopsy of the retroperitoneal lymph node showed no evidence of follicular lymphoma.
[2018-08-11 10:41] VITALS: BP 113/63; PULSE 99; RESP 18; TEMP 37.4; O2SAT 97
[2018-08-11 10:43] LABS: Hematocrit 32.1 % (36-46); Hemoglobin 10.9 g/dL (12.0-16.0); Mean Corpuscular HGB Conc 33.9 % (30-36); Mean Corpuscular Hemoglobin 28.8 PG (26-34); Platelet Count 83 X10^3/uL (150-400); Red Blood Cell Count 3.78 X10^6/uL (4.0-5.2)
[2018-08-11 10:44] LABS: Add Manual Diff / Slide Review YES
[2018-08-11 10:53] LABS: Alanine Aminotransferase 33 IU/L (9-52); Albumin 3.5 g/dL (3.5-5.0); Albumin Globulin Ratio 1.4 (1.0-2.8); Alkaline Phosphatase 67 U/L (38-126); Aspartate Aminotransferase 50 IU/L (14-36); Bilirubin Total 0.5 mg/dL (0.2-1.3); Blood Urea Nitrogen 9 mg/dL (7-17); Calcium 8.8 mg/dL (8.4-10.2); Carbon Dioxide 29 mmol/L (22-32); Chloride 99 mmol/L (98-107); Estimated Glomerular Filt Rate > 60.0 mL/min (>60); Globulin 2.5 g/dL (1.7-4.1); Glucose 115 mg/dL (80-110); HEMOLYSIS < 15 (0-50); Potassium 3.3 mmol/L (3.4-5.1); Sodium 134 mmol/L (137-145)
[2018-08-11 11:28] LABS: Neutrophils Absolute Manual 1800 /uL (3000-5900); Total Cells Counted 100
[2018-08-11 11:29] LABS: Anisocytosis 2+; Dohle Bodies 1+; Platelet Estimate Decreased on smear
[2018-08-11] MEDS: KCL 20 MEQ IN NS 1,000 ML 500 MEQ IV (11:46)
--- NOTE | 2018-08-12 09:33 | PC.NURSE ---
Addendum entered by Anna Espinosa R.N. 08/13/18 15:17: Dr. Gongora's response to this information is, let's watch first! call for concern. This nurse called patient and communicated this to her. She also confirmed that she should continue to monitor her temperature. Original Note: Patient called in at 0825 reporting a temp of 101 F at 0745 this am. At 0930 temp back down to 100 F. Patient reports no other symptoms except the continued known cough which she stated is also somewhat improved. However she reported that the scratch from jose metal which she got on Saturday and after which the labile temps started and which she said she reported to Dr. Gongora, that he told her to get a tetanus but not in combination with any other immuniz. She has asked at her PCP and the pharmacies but only Tdap and Td available. Fax sent to Dr. Gongora with above information requesting direction on action.
--- NOTE | 2018-08-20 14:37 | ONC.SCHED ---
Patient is transferring care to [facility]. Sent a request for Medical Records to be faxed.
--- NOTE | 2018-08-25 08:30 | P.PNONC_ITS ---
PN -Subjective Interval history: 72-year-old female with history Hodgkin's lymphoma and low-grade follicular lymphoma presents now with relapsed classical Hodgkin's lymphoma confirmed by CT-guided bx of left retroperitoneal lymph node 04/25/2018. Patient started salvage chemotherapy with bendamustine and brentuximab on 05/26/2018. After 4 cycles of bendamustine and rituximab. On 08/06/2009, patient underwent repeat PET scan. The PET scan showed resolved hypermetabolic lymph nodes and was deemed a [place] 1 response. She is here to present for cycle 5 bendamustine and brentuximab vedotin. Patient clinically has been doing well except fatigue. Patient said that especially on the fourth day of the cycle patient is tired and had to stay in the room. No fever no chills. No nausea no vomiting. No diarrhea and no constipation. Oncology History Her follicular lymphoma was diagnosed after core needle biopsy of retroperitoneal lymph nodes on 12/27/2008 that showed atypical lymphoid infiltrate most consistent with follicular lymphoma. 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 FLIPI score was 2. She was consulted at [facility] and active surveillance was recommended. Her Hodgkin's lymphoma was diagnosed after skin punch biopsy of a lesion on the right superior upper chest on 05/15/2016 which showed classical Hodgkin's lymphoma involving deep dermis and subcutaneous tissue. Her initial presentation was characterized by raised skin plaques affecting the upper trunk and the facial area. Staging CT scan on 05/30/2016 showed multiple, diffuse, superficial soft tissue nodules (anterior left ear, right ear, upper back, posterior right shoulder, sternoclavicular notch, right lateral aspect of the upper breast, posterior to left scapular and anterior aspect of the right chest wall). The conglomerate adenopathy at the retrocrural and periaortic level overall smaller compared to previous scan reflecting follicular lymphoma. PET-CT on 06/13/2016 showed multiple cutaneous hypermetabolic lesions ([place] 5) involving bilateral neck, just above the right mandibular angle, anterior neck superficial to the thyroid cartilage, chest wall, shoulders and upper arms bilaterally, small left axillary lymph node, extensive retroperitoneal lymphadenpathy most prominent for a bulky left para-aortic lymph nodes measuring 28 x 36 x 75 mm with SUV 11.7, left internal an dexternal iliac lymphadenopathy, right pelvis, cutaneous nodules in the posterior low back and buttocks, Her HD was therefore deemed stage IV. Patient received ABVD from 06/12/2016 through 12/04/2016. After 2 cycles, she had [place] 1 PET response, bleomycin was discontinued. After treatment patient has been on active surveillance. Her CT scan in June of 2017 did not show any evidence of disease recurrence or metastasis. And retroperitoneal lymph nodes were shrinking in size. In early 02/2018, about 1.2 years after she completed ABVD, she developed mild night sweats and dry cough. CT chest abdomen and pelvis on 03/31/2018 showed interval marked increase in the size of retroperitoneal lymphadenopathy most prominent in the left para-aortic space, mildly increased retro-esophageal lymph node sizes and measures up to 12 mm in short axis diameter, by basilar scarring in the lungs and no gross mesenteric adenopathy. On 04/10/2018 patient underwent a bone marrow aspiration biopsy. The hematopathology showed no involvement by lymphoma either follicular or Hodgkin's. Patient underwent PET CT on 04/16/2018. The PET-CT showed hypermetabolic lymph nodes in the posterior mediastinum consistent with recurrent lymphoma ([place] scale 5) and hypermetabolic retroperitoneal and mesenteric lymph nodes consistent with recurrent lymphoma ([place]ville scale 5) (stage III). Patient underwent CT-guided biopsy of left retroperitoneal lymph node April 25, 2018. The pathology confirmed the diagnosis of classic Hodgkin's lymphoma. In the comment, it mentioned that the morphologic and immunohistochemical features are compatible with classic Hodgkin's lymphoma. Features are suggestive of but not definitively diagnostic for nodular sclerosis subtype of classical Hodgkin's lymphoma. There is no evidence of an atypical CD10 positive population by immunohistochemical or by flow cytometric analysis (follicular lymphoma was a clinical consideration). Concomitant flow cytometric analysis was without evidence of an atypical B-cell, T-cell or NK cell population. - Patient Self-Reported Symptoms SR Constitution: Fever, Chills, Fatigue/Malaise, Night Sweats SR ears, nose, mouth, throat issues: Cough SR respiratory issues: Cough SR Cardiovascular issues: Palpitations SR Gastrointestinal issues: Change in bowel pattern SR Endocrine issues: Hot flashes - Additional ROS All systems PM: reviewed and no additional remarkable complaints except as stated Home Medications and Allergies Home Medications Medication Instructions Recorded Confirmed Type Probiotic 1 cap PO DAILY #0 07/04/12 08/11/18 History coQ10 (ubiquinol) 250 mg PO DAILY #0 07/04/12 08/11/18 History multivitamin 1 tab PO DAILY #0 07/04/12 08/11/18 History [place]-3 Fish Oil 1 cap PO DAILY 05/15/18 08/11/18 History Protandim 1 dose PO DAILY 05/15/18 08/11/18 History Vitamin D Liquid 1 dose TOPICAL DAILY 05/15/18 08/11/18 History ondansetron HCl [Zofran] 4 mg PO Q6-8H PRN #30 tab 05/27/18 08/11/18 Rx diltiazem CD 180 mg 180 mg PO QPM #90 cap 06/03/18 08/11/18 Rx capsule,extended release 24 hr Quercitin 07/10/18 08/11/18 History resveratrol DAILY 07/10/18 08/11/18 History mupirocin 2 % topical ointment 1 applic TOP BID #30 gram 08/11/18 Rx Allergies Allergy/AdvReac Type Severity Reaction Status Date / Time NSAIDS (Non-Steroidal Allergy Intermediate HIVES Verified 08/11/18 17:02 Anti-Inflamma [NSAIDS (NON-STEROIDAL ANTI-INFLAMMA] amoxicillin [AMOXICILLIN] Allergy Mild rash Verified 08/11/18 17:02 Exam Vital signs: Last Vital Signs Temp 98.2 F 08/25/18 09:42 Pulse 88 08/25/18 09:42 Resp 18 08/25/18 09:42 BP 127/78 08/25/18 09:42 Pulse Ox 99 08/25/18 09:42 ECOG 1 Narrative: Constitutional: WDWN, NAD, thin, well groomed, pleasant and cooperative. Accompanied by her friend. HEENT: NCAT, EOMI, PERRLA, anicteric sclera. Neck: Supple, symmetrical, and tracheal midline; No palpable thyromegaly and no palpable lymph nodes. Respiratory: No use of accessory muscles. Clear to auscultation, and no wheezes. Cardiovascular: Regular rate and rhythm, S1 and S2 normal, no murmurs gallops or rubs. Abdomen: Soft, nontender, non-distended, bowel sounds normal, no palpable organomegaly, no hernia, no palpable masses. Lower extremities: No palpable pedal edema. Lymphatic: no palpable lymph nodes in the neck, axillae, or groins. Musculoskeletal: normal gait and station, no clubbing, no cyanosis, no pitting edema. Skin: no rashes, no ulcers, no petechiae Neurological: Awake and alert and oriented x3. CN II-XII grossly intact. No foc al motor or sensory deficit. Psychiatric: Good judgment, good insight, normal affect, normal thought process, cooperative, no depression. Results - Labs Laboratory Last Values WBC 3.8 X10^3/uL (4.5-11.0) L 08/25/18 09:35 RBC 4.12 X10^6/uL (4.0-5.2) 08/25/18 09:35 Hgb 12.0 g/dL (12.0-16.0) 08/25/18 09:35 Hct 35.9 % (36-46) L 08/25/18 09:35 MCV 87.1 fL (80-100) 08/25/18 09:35 MCH 29.2 PG (26-34) 08/25/18 09:35 MCHC 33.5 % (30-36) 08/25/18 09:35 RDW 19.4 % (11.6-14.8) H 08/25/18 09:35 Plt Count 124 X10^3/uL (150-400) L 08/25/18 09:35 Neut % (Auto) 38.6 % (50-75) L 08/25/18 09:35 Lymph % (Auto) 36.6 % (25-40) 08/25/18 09:35 [place] % (Auto) 18.8 % (3-14) H 08/25/18 09:35 Eos % (Auto) 5.1 % (2-4) H 08/25/18 09:35 Baso % (Auto) 0.9 % (0-2) 08/25/18 09:35 Neut # (Auto) 1500 /uL (8781-4129) 08/25/18 09:35 Lymph # (Auto) 1400 /uL (4520-4050) 08/25/18 09:35 [place] # (Auto) 700 /uL (0-900) 08/25/18 09:35 Eos # (Auto) 200 /uL (0-450) 08/25/18 09:35 Baso # (Auto) 0 /uL (0-100) 08/25/18 09:35 Total Counted 100 08/11/18 10:20 Seg Neutrophils % 43.0 % (38-70) 08/11/18 10:20 Band Neutrophils % 17.0 % (3-7) H 08/11/18 10:20 Lymphocytes % (Manual) 9.0 % (25-45) L 08/11/18 10:20 Atypical Lymphs % 7.0 % (-0) H 08/11/18 10:20 Monocytes % (Manual) 17.0 % (2-11) H 08/11/18 10:20 Eosinophils % (Manual) 6.0 % (2-4) H 08/11/18 10:20 Basophils % (Manual) 1.0 % (0-1) 07/21/18 15:21 Metamyelocytes % 1.0 % (-0) H 08/11/18 10:20 Neutrophils # (Manual) 1800 /uL (3048-6085) L 08/11/18 10:20 Smudge Cells 1+ H 08/05/18 14:30 Dohle Bodies 1+ H 08/11/18 10:20 Platelet Estimate Decreased on smear 08/11/18 10:20 Plt Morphology Comment 08/11/18 10:20 RBC Morphology See below 08/11/18 10:20 Hypochromasia 1+ H 07/28/18 11:02 Poikilocytosis 1+ H 08/05/18 14:30 Anisocytosis 2+ H 08/11/18 10:20 Microcytosis 1+ H 07/09/18 09:40 Ovalocytes 1+ H 07/28/18 11:02 ESR 83 MM/HR (0-20) H 05/22/18 08:36 PT 14.2 SECONDS (10.1-12.7) H 04/24/18 14:15 INR 1.2 (0.9-1.3) 04/24/18 14:15 Sodium 139 mmol/L (137-145) 08/25/18 09:35 Potassium 3.8 mmol/L (3.4-5.1) 08/25/18 09:35 Chloride 104 mmol/L (98-107) 08/25/18 09:35 Carbon Dioxide 28 mmol/L (22-32) 08/25/18 09:35 BUN 13 mg/dL (7-17) 08/25/18 09:35 Creatinine 0.70 mg/dL (0.52-1.04) 08/25/18 09:35 Estimated GFR > 60.0 mL/min (>60) 08/25/18 09:35 BUN/Creatinine Ratio 18.6 (6-22) 08/25/18 09:35 Glucose 100 mg/dL (80-110) 08/25/18 09:35 Calcium 9.4 mg/dL (8.4-10.2) 08/25/18 09:35 Total Bilirubin 0.3 mg/dL (0.2-1.3) 08/25/18 09:35 AST 51 IU/L (14-36) H 08/25/18 09:35 ALT 35 IU/L (9-52) 08/25/18 09:35 Alkaline Phosphatase 80 U/L (38-126) 08/25/18 09:35 Lactate Dehydrogenase 535 U/L (313-618) 05/22/18 08:36 Total Protein 6.5 g/dL (6.3-8.2) 08/25/18 09:35 Albumin 3.9 g/dL (3.5-5.0) 08/25/18 09:35 Globulin 2.6 g/dL (1.7-4.1) 08/25/18 09:35 Albumin/Globulin Ratio 1.5 (1.0-2.8) 08/25/18 09:35 Hep Bs Antigen Negative s/c (NEGATIVE) 05/15/18 14:32 Hep Bs Antibody Nonreactive (Nonreactive) 05/15/18 15:31 Hep B Core Total Ab Nonreactive (Nonreactive) 05/15/18 15:31 Hep B Core IgM Ab Nonreactive (Nonreactive) 05/15/18 15:31 Hepatitis C Antibody Negative s/c (NEGATIVE) 05/15/18 14:32 Assessment and Plan (1) Hodgkins lymphoma in relapse Overview: 1. Stage IV classical HD, diagnosed after skin punch biopsy of a lesion on the right superior upper chest on 05/15/2016. CT and PET scan staging showed extensive multiple superfical soft tissues of the skin and retroperitoneal lymphadenpathy (stage IV) 2. Patient received ABVD from 06/12/2016 through 12/04/2016. After 2 cycles, she had [place] 1 PET response, bleomycin was discontinued. 3. Relapsed in 02/2018, with B symptoms. Confirmed by CT guided retroperitoneal biopsy on 04/25/2018. PET showed above and below diaphragm involvement, with negative BMA/BX. Stage III. 4. Salvage Bendamustine/B-Vedotin on 05/26/2018. Assessment: Today patient brought in multiple bottles of supplementary medications including detox pills vitamins etc. I explained to them that we do not have good evidence to support the use of these supplements. I referred the patient to looked up online the [facility] section for more information. Patient voiced understanding. I explained to the patient that during the chemotherapy, patient usually will feel tired; but if it is grade 1 which means mild usually we would continue press ahead with the chemotherapy. However if it is grade 2 or higher we may have to delay or even stop the chemotherapy. In my opinion patient is grade 1 in severity, I would highly recommend that we continue the current planned chemotherapy. Patient voiced understanding. Patient said that she needs more time in between to recover from the chemotherapy and would like to have the next cycle in 4 weeks. Plan: 1. OK to proceed to Cycle 5# Bendamustine and Brentuximab. 2. RTC on 09/22/2018 for Cycle 6# Bendamustine and Brentuximab. Labs per treatment plan. (2) Shortness of breath She is complaining significant shortness of breath however the pulse ox is about 97% at the clinic. Patient is also having low-grade fever but no sore throat. The lungs are clear on my physical examination. Given that the patient is receiving brentuximab which is known to cause pulmonary embolism and pneumonitis. I will proceed with CT a today to exclude the diagnosis of possible pulmonary embolism and/or pneumonitis. (3) Follicular lymphoma Problem details: Follicular lymphoma diagnosed by needle core biopsy of retroperitoneal lymph nodes on 12/27/2008 that showed atypical lymphoid infiltrate most consistent with follicular lymphoma. He also had bone marrow aspiration and biopsy were performed on 12/24/2008 that showed normal cellular marrow with low level involvement by follicular lymphoma positive for t(1 4:18)(q32:q21) involving the BCL2 chain by FISH. FLIPI score was 2. She was consulted at [facility] and active surveillance was recommended. Until now there has been no evidence to suggest recurrence or transformation of her underlying follicular lymphoma. Assessment and Plan: No evidence of recurrence. The CT-guided biopsy of the retroperitoneal lymph node showed no evidence of follicular lymphoma.
[2018-08-25 09:42] VITALS: BP 127/78; PULSE 88; RESP 18; TEMP 36.8; O2SAT 99
[2018-08-25 09:48] LABS: Add Manual Diff / Slide Review NO; Basophils Absolute Auto 0 /uL (0-100); Basophils Percent Auto 0.9 % (0-2); Eosinophils Absolute Auto 200 /uL (0-450); Eosinophils Percent Auto 5.1 % (2-4); Hematocrit 35.9 % (36-46); Lymphocytes Absolute Auto 1400 /uL (1100-4500); Lymphocytes Percent Auto 36.6 % (25-40); Mean Corpuscular HGB Conc 33.5 % (30-36); Mean Corpuscular Hemoglobin 29.2 PG (26-34); Mean Corpuscular Volume 87.1 fL (80-100); Monocytes Absolute Auto 700 /uL (0-900); Monocytes Percent Auto 18.8 % (3-14); Neutrophils Absolute Auto 1500 /uL (1500-7000); Neutrophils Percent Auto 38.6 % (50-75); Platelet Count 124 X10^3/uL (150-400); Red Blood Cell Count 4.12 X10^6/uL (4.0-5.2); Red Cell Distribution Width 19.4 % (11.6-14.8); White Blood Cell Count 3.8 X10^3/uL (4.5-11.0)
[2018-08-25 09:57] LABS: Alanine Aminotransferase 35 IU/L (9-52); Albumin 3.9 g/dL (3.5-5.0); Albumin Globulin Ratio 1.5 (1.0-2.8); Alkaline Phosphatase 80 U/L (38-126); Aspartate Aminotransferase 51 IU/L (14-36); BUN Creatinine Ratio 18.6 (6-22); Bilirubin Total 0.3 mg/dL (0.2-1.3); Blood Urea Nitrogen 13 mg/dL (7-17); Calcium 9.4 mg/dL (8.4-10.2); Carbon Dioxide 28 mmol/L (22-32); Chloride 104 mmol/L (98-107); Estimated Glomerular Filt Rate > 60.0 mL/min (>60); Globulin 2.6 g/dL (1.7-4.1); Glucose 100 mg/dL (80-110); HEMOLYSIS < 15 (0-50); Potassium 3.8 mmol/L (3.4-5.1); Sodium 139 mmol/L (137-145); Total Protein 6.5 g/dL (6.3-8.2)
[2018-08-25] MEDS: diphenhydrAMINE 25 MG TABLET 50 MG PO (11:25)
[2018-08-25] MEDS: ONDANSETRON 16 MG in SODIUM CHLORIDE 0.9% 50 ML 232 ML IV (11:29)
[2018-08-25] MEDS: methylPREDNISolone 125 MG/2 ML VIAL 100 MG IV (11:29)
[2018-08-25] MEDS: SODIUM CHLORIDE 0.9% 100 ML 21 ML IV (11:30)
--- NOTE | 2018-08-25 11:36 | ONC.SCHED ---
Patient confirmed today that she has changed her mind as is not transferring care to [facility]
[2018-08-25] MEDS: SODIUM CHLORIDE 0.9% IV (12:34)
[2018-08-25] MEDS: BRENTUXIMAB VEDOTIN IV (12:34)
[2018-08-25] MEDS: NORMAL SALINE IV (13:27)
[2018-08-25] MEDS: BENDAMUSTINE IV (13:27)
[2018-08-26] MEDS: SODIUM CHLORIDE 0.9% 100 ML 21 ML IV (10:54)
[2018-08-26] MEDS: DEXAMETHASONE 12 MG in SODIUM CHLORIDE 0.9% 50 ML 212 ML IV (10:55)
[2018-08-26 11:15] VITALS: BP 108/61; PULSE 69; RESP 16; TEMP 36.7
[2018-08-26] MEDS: ONDANSETRON 16 MG in SODIUM CHLORIDE 0.9% 50 ML 232 ML IV (11:19)
[2018-08-26] MEDS: BENDAMUSTINE IV (12:24)
[2018-08-26] MEDS: NORMAL SALINE IV (12:24)
[2018-09-01 14:39] LABS: Add Manual Diff / Slide Review YES; Hematocrit 34.8 % (36-46); Hemoglobin 11.9 g/dL (12.0-16.0); Mean Corpuscular HGB Conc 34.1 % (30-36); Mean Corpuscular Hemoglobin 29.8 PG (26-34); Mean Corpuscular Volume 87.4 fL (80-100); Platelet Count 102 X10^3/uL (150-400); Red Blood Cell Count 3.98 X10^6/uL (4.0-5.2); Red Cell Distribution Width 18.5 % (11.6-14.8); White Blood Cell Count 2.6 X10^3/uL (4.5-11.0)
[2018-09-01 14:47] LABS: Alanine Aminotransferase 33 IU/L (9-52); Albumin 3.9 g/dL (3.5-5.0); Albumin Globulin Ratio 1.4 (1.0-2.8); Alkaline Phosphatase 79 U/L (38-126); Aspartate Aminotransferase 46 IU/L (14-36); BUN Creatinine Ratio 25.7 (6-22); Bilirubin Total 0.4 mg/dL (0.2-1.3); Blood Urea Nitrogen 18 mg/dL (7-17); Calcium 9.4 mg/dL (8.4-10.2); Carbon Dioxide 30 mmol/L (22-32); Chloride 99 mmol/L (98-107); Estimated Glomerular Filt Rate > 60.0 mL/min (>60); Globulin 2.7 g/dL (1.7-4.1); Glucose 113 mg/dL (80-110); HEMOLYSIS < 15 (0-50); Potassium 3.8 mmol/L (3.4-5.1); Sodium 135 mmol/L (137-145); Total Protein 6.6 g/dL (6.3-8.2)
[2018-09-01 15:17] LABS: Anisocytosis 2+
[2018-09-08 14:31] LABS: Hematocrit 30.2 % (36-46); Hemoglobin 10.3 g/dL (12.0-16.0); Mean Corpuscular Volume 88.1 fL (80-100); Platelet Count 92 X10^3/uL (150-400); Red Blood Cell Count 3.43 X10^6/uL (4.0-5.2); Red Cell Distribution Width 18.6 % (11.6-14.8); White Blood Cell Count 2.1 X10^3/uL (4.5-11.0)
[2018-09-08 14:32] LABS: Add Manual Diff / Slide Review YES; Alanine Aminotransferase 36 IU/L (9-52); Albumin 3.7 g/dL (3.5-5.0); Albumin Globulin Ratio 1.5 (1.0-2.8); Alkaline Phosphatase 75 U/L (38-126); Aspartate Aminotransferase 56 IU/L (14-36); Bilirubin Total 0.4 mg/dL (0.2-1.3); Blood Urea Nitrogen 16 mg/dL (7-17); Calcium 9.1 mg/dL (8.4-10.2); Carbon Dioxide 28 mmol/L (22-32); Chloride 104 mmol/L (98-107); Estimated Glomerular Filt Rate > 60.0 mL/min (>60); Globulin 2.5 g/dL (1.7-4.1); Glucose 88 mg/dL (80-110); HEMOLYSIS < 15 (0-50); Potassium 3.7 mmol/L (3.4-5.1); Sodium 138 mmol/L (137-145); Total Protein 6.2 g/dL (6.3-8.2)
[2018-09-08 14:56] LABS: Anisocytosis 1+; Neutrophils Absolute Manual 1323 /uL (3000-5900); Total Cells Counted 100
[2018-09-29 09:10] LABS: Add Manual Diff / Slide Review NO; Basophils Absolute Auto 0 /uL (0-100); Basophils Percent Auto 0.9 % (0-2); Eosinophils Absolute Auto 100 /uL (0-450); Eosinophils Percent Auto 6.2 % (2-4); Hematocrit 34.5 % (36-46); Hemoglobin 11.5 g/dL (12.0-16.0); Lymphocytes Absolute Auto 700 /uL (1100-4500); Lymphocytes Percent Auto 29.1 % (25-40); Mean Corpuscular HGB Conc 33.3 % (30-36); Mean Corpuscular Hemoglobin 30.5 PG (26-34); Mean Corpuscular Volume 91.6 fL (80-100); Monocytes Absolute Auto 500 /uL (0-900); Monocytes Percent Auto 20.6 % (3-14); Neutrophils Absolute Auto 1000 /uL (1500-7000); Neutrophils Percent Auto 43.2 % (50-75); Platelet Count 94 X10^3/uL (150-400); Red Blood Cell Count 3.76 X10^6/uL (4.0-5.2); Red Cell Distribution Width 18.3 % (11.6-14.8); White Blood Cell Count 2.4 X10^3/uL (4.5-11.0)
[2018-09-29 09:25] LABS: Alanine Aminotransferase 47 IU/L (9-52); Albumin Globulin Ratio 1.7 (1.0-2.8); Alkaline Phosphatase 74 U/L (38-126); Aspartate Aminotransferase 54 IU/L (14-36); Bilirubin Total 0.5 mg/dL (0.2-1.3); Blood Urea Nitrogen 15 mg/dL (7-17); Calcium 9.1 mg/dL (8.4-10.2); Carbon Dioxide 26 mmol/L (22-32); Chloride 108 mmol/L (98-107); Estimated Glomerular Filt Rate > 60.0 mL/min (>60); Globulin 2.4 g/dL (1.7-4.1); Glucose 102 mg/dL (80-110); HEMOLYSIS < 15 (0-50); Potassium 3.9 mmol/L (3.4-5.1); Sodium 141 mmol/L (137-145); Total Protein 6.4 g/dL (6.3-8.2)
--- NOTE | 2018-09-29 09:29 | P.PNONC_ITS ---
PN -Subjective Interval history: 73-year-old female with history Hodgkin's lymphoma and low-grade follicular lymphoma now with relapsed classical Hodgkin's lymphoma confirmed by CT-guided bx of left retroperitoneal lymph node on 04/25/2018. Patient started salvage chemotherapy with bendamustine and brentuximab on 05/26/2018. After 4 cycles of bendamustine and rituximab, on 08/06/2009, patient underwent repeat PET scan. The PET scan showed resolved hypermetabolic lymph nodes and was deemed a [place] 1 response. She is here to present for cycle 6 bendamustine and brentuximab vedotin. She is here accompanied by her friend. She reported that the fatigue happened just like the previous cycle. However after 5 weeks break, she did feel a better. She denies any fever or chills. No shortness of breath. She denies any tingling numbing of the hands and feet. She is complaining some mild balancing problems. However she has no problems get up and go. Oncology History Her follicular lymphoma was diagnosed after core needle biopsy of retroperitoneal lymph nodes on 12/27/2008 that showed atypical lymphoid infi ltrate most consistent with follicular lymphoma. 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 FLIPI score was 2. She was consulted at [facility] and active surveillance was recommended. Her Hodgkin's lymphoma was diagnosed after skin punch biopsy of a lesion on the right superior upper chest on 05/15/2016 which showed classical Hodgkin's lymphoma involving deep dermis and subcutaneous tissue. Her initial presentation was characterized by raised skin plaques affecting the upper trunk and the facial area. Staging CT scan on 05/30/2016 showed multiple, diffuse, superficial soft tissue nodules (anterior left ear, right ear, upper back, posterior right shoulder, sternoclavicular notch, right lateral aspect of the upper breast, posterior to left scapular and anterior aspect of the right chest wall). The conglomerate adenopathy at the retrocrural and periaortic level overall smaller compared to previous scan reflecting follicular lymphoma. PET-CT on 06/13/2016 showed multiple cutaneous hypermetabolic lesions ([place] 5) involving bilateral neck, just above the right mandibular angle, anterior neck superficial to the thyroid cartilage, chest wall, shoulders and upper arms bilaterally, small left axillary lymph node, extensive retroperitoneal lymphadenpathy most prominent for a bulky left para-aortic lymph nodes measuring 28 x 36 x 75 mm with SUV 11.7, left internal an dexternal iliac lymphadenopathy, right pelvis, cutaneous nodules in the posterior low back and buttocks, Her HD was therefore deemed stage IV. Patient received ABVD from 06/12/2016 through 12/04/2016. After 2 cycles, she had [place] 1 PET response, bleomycin was discontinued. After treatment patient has been on active surveillance. Her CT scan in June of 2017 did not show any evidence of disease recurrence or metastasis. And retroperitoneal lymph nodes were shrinking in size. In early 02/2018, about 1.2 years after she completed ABVD, she developed mild night sweats and dry cough. CT chest abdomen and pelvis on 03/31/2018 showed interval marked increase in the size of retroperitoneal lymphadenopathy most prominent in the left para-aortic space, mildly increased retro-esophageal lymph node sizes and measures up to 12 mm in short axis diameter, by basilar scarring in the lungs and no gross mesenteric adenopathy. On 04/10/2018 patient underwent a bone marrow aspiration biopsy. The hematopathology showed no involvement by lymphoma either follicular or Hodgkin's. Patient underwent PET CT on 04/16/2018. The PET-CT showed hypermetabolic lymph nodes in the posterior mediastinum consistent with recurrent lymphoma ([place] scale 5) and hypermetabolic retroperitoneal and mesenteric lymph nodes consistent with recurrent lymphoma ([place]ville scale 5) (stage III). Patient underwent CT-guided biopsy of left retroperitoneal lymph node April 25, 2018. The pathology confirmed the diagnosis of classic Hodgkin's lymphoma. In the comment, it mentioned that the morphologic and immunohistochemical features are compatible with classic Hodgkin's lymphoma. Features are suggestive of but not definitively diagnostic for nodular sclerosis subtype of classical Hodgkin's lymphoma. There is no evidence of an atypical CD10 positive population by immunohistochemical or by flow cytometric analysis (follicular lymphoma was a clinical consideration). Concomitant flow cytometric analysis was without evidence of an atypical B-cell, T-cell or NK cell population. - Patient Self-Reported Symptoms SR Constitution: Fever, Chills, Fatigue/Malaise, Night Sweats SR ears, nose, mouth, throat issues: Cough SR respiratory issues: Cough SR Cardiovascular issues: Palpitations SR Gastrointestinal issues: Change in bowel pattern SR Endocrine issues: Hot flashes - Additional ROS All systems PM: reviewed and no additional remarkable complaints except as stated Home Medications and Allergies Home Medications Medication Instructions Recorded Confirmed Type Probiotic 1 cap PO DAILY #0 07/04/12 08/11/18 History coQ10 (ubiquinol) 250 mg PO DAILY #0 07/04/12 08/11/18 History multivitamin 1 tab PO DAILY #0 07/04/12 08/11/18 History [place]-3 Fish Oil 1 cap PO DAILY 05/15/18 08/11/18 History Protandim 1 dose PO DAILY 05/15/18 08/11/18 History Vitamin D Liquid 1 dose TOPICAL DAILY 05/15/18 08/11/18 History ondansetron HCl [Zofran] 4 mg PO Q6-8H PRN #30 tab 05/27/18 08/11/18 Rx diltiazem CD 180 mg 180 mg PO QPM #90 cap 06/03/18 08/11/18 Rx capsule,extended release 24 hr Quercitin 07/10/18 08/11/18 History resveratrol DAILY 07/10/18 08/11/18 History mupirocin 2 % topical ointment 1 applic TOP BID #30 gram 08/11/18 Rx Emmanuel Preciado Drops 08/25/18 History Lymph Support 08/25/18 History Vadim Stress 08/25/18 History Respira Tone 08/25/18 History Thyroid Plus 08/25/18 History Whole Body Detox 08/25/18 History ascorbic acid (vitamin C) [Vitamin 1,000 mg PO DAILY 08/25/18 08/25/18 History C] turmeric (bulk) [Curcumin] DAILY 08/25/18 History Allergies Allergy/AdvReac Type Severity Reaction Status Date / Time NSAIDS (Non-Steroidal Allergy Intermediate HIVES Verified 08/11/18 17:02 Anti-Inflamma [NSAIDS (NON-STEROIDAL ANTI-INFLAMMA] amoxicillin [AMOXICILLIN] Allergy Mild rash Verified 08/11/18 17:02 Exam Vital signs: Last Vital Signs Temp 98.1 F 08/26/18 11:15 Pulse 69 08/26/18 11:15 Resp 16 08/26/18 11:15 BP 108/61 08/26/18 11:15 Pulse Ox 99 08/25/18 09:42 ECOG 1 Narrative: Constitutional: WDWN, NAD, thin, well groomed, pleasant and cooperative. Accompanied by her friend. HEENT: NCAT, EOMI, PERRLA, anicteric sclera. Neck: Supple, symmetrical, and tracheal midline; No palpable thyromegaly and no palpable lymph nodes. Respiratory: No use of accessory muscles. Clear to auscultation, and no wheezes. Cardiovascular: Regular rate and rhythm, S1 and S2 normal, no murmurs gallops or rubs. Abdomen: Soft, nontender, non-distended, bowel sounds normal, no palpable organomegaly, no hernia, no palpable masses. Lower extremities: No palpable pedal edema. Lymphatic: no palpable lymph nodes in the neck, axillae, or groins. Musculoskeletal: normal gait and station, no clubbing, no cyanosis, no pitting edema. Skin: no rashes, no ulcers, no petechiae Neurological: Awake and alert and oriented x3. CN II-XII grossly intact. No focal motor or sensory deficit. Psychiatric: Good judgment, good insight, normal affect, normal thought process, cooperative, no depression. Results - Labs Laboratory Last Values WBC 2.4 X10^3/uL (4.5-11.0) L 09/29/18 09:00 RBC 3.76 X10^6/uL (4.0-5.2) L 09/29/18 09:00 Hgb 11.5 g/dL (12.0-16.0) L 09/29/18 09:00 Hct 34.5 % (36-46) L 09/29/18 09:00 MCV 91.6 fL (80-100) 09/29/18 09:00 MCH 30.5 PG (26-34) 09/29/18 09:00 MCHC 33.3 % (30-36) 09/29/18 09:00 RDW 18.3 % (11.6-14.8) H 09/29/18 09:00 Plt Count 94 X10^3/uL (150-400) L 09/29/18 09:00 Neut % (Auto) 43.2 % (50-75) L 09/29/18 09:00 Lymph % (Auto) 29.1 % (25-40) 09/29/18 09:00 Harvey % (Auto) 20.6 % (3-14) H 09/29/18 09:00 Eos % (Auto) 6.2 % (2-4) H 09/29/18 09:00 Baso % (Auto) 0.9 % (0-2) 09/29/18 09:00 Neut # (Auto) 1000 /uL (9759-1596) L 09/29/18 09:00 Lymph # (Auto) 700 /uL (7506-4817) L 09/29/18 09:00 Harvey # (Auto) 500 /uL (0-900) 09/29/18 09:00 Eos # (Auto) 100 /uL (0-450) 09/29/18 09:00 Baso # (Auto) 0 /uL (0-100) 09/29/18 09:00 Total Counted 100 09/08/18 14:10 Seg Neutrophils % 58.0 % (38-70) 09/08/18 14:10 Band Neutrophils % 5.0 % (3-7) 09/08/18 14:10 Lymphocytes % (Manual) 13.0 % (25-45) L 09/08/18 14:10 Atypical Lymphs % 1.0 % (-0) H 09/08/18 14:10 Monocytes % (Manual) 16.0 % (2-11) H 09/08/18 14:10 Eosinophils % (Manual) 6.0 % (2-4) H 09/08/18 14:10 Basophils % (Manual) 1.0 % (0-1) 09/08/18 14:10 Metamyelocytes % 1.0 % (-0) H 08/11/18 10:20 Neutrophils # (Manual) 1323 /uL (8884-8643) L 09/08/18 14:10 Smudge Cells 1+ H 08/05/18 14:30 Dohle Bodies 1+ H 08/11/18 10:20 Platelet Estimate Decreased on smear 08/11/18 10:20 Plt Morphology Comment 08/11/18 10:20 RBC Morphology Not Reportable 09/08/18 14:10 Hypochromasia 1+ H 07/28/18 11:02 Poikilocytosis 1+ H 08/05/18 14:30 Anisocytosis 1+ H 09/08/18 14:10 Microcytosis 1+ H 07/09/18 09:40 Ovalocytes 1+ H 07/28/18 11:02 ESR 83 MM/HR (0-20) H 05/22/18 08:36 PT 14.2 SECONDS (10.1-12.7) H 04/24/18 14:15 INR 1.2 (0.9-1.3) 04/24/18 14:15 Sodium 138 mmol/L (137-145) 09/08/18 14:10 Potassium 3.7 mmol/L (3.4-5.1) 09/08/18 14:10 Chloride 104 mmol/L (98-107) 09/08/18 14:10 Carbon Dioxide 28 mmol/L (22-32) 09/08/18 14:10 BUN 16 mg/dL (7-17) 09/08/18 14:10 Creatinine 0.50 mg/dL (0.52-1.04) L 09/08/18 14:10 Estimated GFR > 60.0 mL/min (>60) 09/08/18 14:10 BUN/Creatinine Ratio 32.0 (6-22) H 09/08/18 14:10 Glucose 88 mg/dL (80-110) 09/08/18 14:10 Calcium 9.1 mg/dL (8.4-10.2) 09/08/18 14:10 Total Bilirubin 0.4 mg/dL (0.2-1.3) 09/08/18 14:10 AST 56 IU/L (14-36) H 09/08/18 14:10 ALT 36 IU/L (9-52) 09/08/18 14:10 Alkaline Phosphatase 75 U/L (38-126) 09/08/18 14:10 Lactate Dehydrogenase 535 U/L (313-618) 05/22/18 08:36 Total Protein 6.2 g/dL (6.3-8.2) L 09/08/18 14:10 Albumin 3.7 g/dL (3.5-5.0) 09/08/18 14:10 Globulin 2.5 g/dL (1.7-4.1) 09/08/18 14:10 Albumin/Globulin Ratio 1.5 (1.0-2.8) 09/08/18 14:10 Hep Bs Antigen Negative s/c (NEGATIVE) 05/15/18 14:32 Hep Bs Antibody Nonreactive (Nonreactive) 05/15/18 15:31 Hep B Core Total Ab Nonreactive (Nonreactive) 05/15/18 15:31 Hep B Core IgM Ab Nonreactive (Nonreactive) 05/15/18 15:31 Hepatitis C Antibody Negative s/c (NEGATIVE) 05/15/18 14:32 Assessment and Plan (1) Hodgkins lymphoma in relapse Overview: 1. Stage IV classical HD, diagnosed after skin punch biopsy of a lesion on the right superior upper chest on 05/15/2016. CT and PET scan staging showed extens denae multiple superficial soft tissues of the skin and retroperitoneal lymphadenpathy (stage IV) 2. Patient received ABVD from 06/12/2016 through 12/04/2016. After 2 cycles, she had [place] 1 PET response, bleomycin was discontinued. 3. Relapsed in 02/2018, with B symptoms. Confirmed by CT guided retroperitoneal biopsy on 04/25/2018. PET showed above and below diaphragm involvement, with negative BMA/BX. Stage III. 4. Salvage Bendamustine/B-Vedotin on 05/26/2018. Assessment: I reviewed the lab tests with the patient. The ANC was 1.0. The platelet counts were 94,000. I talked with her that I would like to wait for another 2 weeks and repeat the laboratory tests. Will defer the chemotherapy. Plan: Delay Cycle 6# Bendamustine and Brentuximab to 10/13/2018. Labs per treatment plan. (2) Follicular lymphoma Problem details: Follicular lymphoma diagnosed by needle core biopsy of retroperitoneal lymph nodes on 12/27/2008 that showed atypical lymphoid infiltrate most consistent with follicular lymphoma. 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 FLIPI score was 2. She was consulted at [facility] and active surveillance was recommended. Until now there has been no evidence to suggest recurrence or transformation of her underlying follicular lymphoma. Assessment and Plan: No evidence of recurrence. The CT-guided biopsy of the retroperitoneal lymph node showed no evidence of follicular lymphoma.
[2018-09-29 10:11] VITALS: BP 131/64; PULSE 76; RESP 16; TEMP 36.8; O2SAT 97
--- NOTE | 2018-09-30 10:45 | ONC.SCHED ---
On Sat 6:15p Sep 29, 2018 Jackie Gongora Wrote Ok with me. Thanks at [id number] On Sat 2:09p Sep 29, 2018 Dimple Ken Wrote [address] Dr. Gongora, This patient is wondering if she can move her treatment from 10/13-10/14 to 10/20-10/21 as she has company in town on the and . Let me know and I'll change her schedule once you move the treatment if you see fit. Thanks, Angelica
[2018-10-20 09:07] LABS: Add Manual Diff / Slide Review NO; Basophils Absolute Auto 0 /uL (0-100); Basophils Percent Auto 0.9 % (0-2); Eosinophils Absolute Auto 100 /uL (0-450); Eosinophils Percent Auto 3.3 % (2-4); Hematocrit 33.9 % (36-46); Hemoglobin 11.6 g/dL (12.0-16.0); Lymphocytes Absolute Auto 600 /uL (1100-4500); Mean Corpuscular HGB Conc 34.2 % (30-36); Mean Corpuscular Hemoglobin 31.8 PG (26-34); Monocytes Absolute Auto 500 /uL (0-900); Monocytes Percent Auto 17.1 % (3-14); Neutrophils Absolute Auto 1800 /uL (1500-7000); Neutrophils Percent Auto 58.7 % (50-75); Platelet Count 103 X10^3/uL (150-400); Red Blood Cell Count 3.64 X10^6/uL (4.0-5.2); Red Cell Distribution Width 17.6 % (11.6-14.8)
[2018-10-20 09:22] LABS: Alanine Aminotransferase 31 IU/L (9-52); Albumin 4.1 g/dL (3.5-5.0); Albumin Globulin Ratio 1.7 (1.0-2.8); Alkaline Phosphatase 73 U/L (38-126); Aspartate Aminotransferase 41 IU/L (14-36); BUN Creatinine Ratio 26.7 (6-22); Bilirubin Total 0.4 mg/dL (0.2-1.3); Blood Urea Nitrogen 16 mg/dL (7-17); Calcium 9.3 mg/dL (8.4-10.2); Carbon Dioxide 26 mmol/L (22-32); Chloride 107 mmol/L (98-107); Estimated Glomerular Filt Rate > 60.0 mL/min (>60); Globulin 2.4 g/dL (1.7-4.1); Glucose 93 mg/dL (80-110); HEMOLYSIS < 15 (0-50); Lactate Dehydrogenase 552 U/L (313-618); Potassium 3.9 mmol/L (3.4-5.1); Sodium 142 mmol/L (137-145); Total Protein 6.5 g/dL (6.3-8.2)
[2018-10-20 09:32] VITALS: BP 110/61; PULSE 67; RESP 16; TEMP 36.8; O2SAT 100
--- NOTE | 2018-10-20 09:45 | P.PNONC_ITS ---
PN -Subjective Interval history: 73-year-old female with history Hodgkin's lymphoma and low-grade follicular lymphoma now with relapsed classical Hodgkin's lymphoma confirmed by CT-guided bx of left retroperitoneal lymph node on 04/25/2018. Patient started salvage chemotherapy with bendamustine and brentuximab on 05/26/2018. After 4 cycles of bendamustine and rituximab, on 08/06/2009, patient underwent repeat PET scan. The PET scan showed resolved hypermetabolic lymph nodes and was deemed a [place] 1 response. She is here to present for cycle 6 bendamustine and brentuximab vedotin. Patient said that after almost 2 months break, she feels a lot better. Her energy level is back. Her weight is going up. She does not any neuropathy at t his moment. Oncology History Her follicular lymphoma was diagnosed after core needle biopsy of retroperitoneal lymph nodes on 12/27/2008 that showed atypical lymphoid infilt rate most consistent with follicular lymphoma. 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 FLIPI score was 2. She was consulted at [facility] and active surveillance was recommended. Her Hodgkin's lymphoma was diagnosed after skin punch biopsy of a lesion on the right superior upper chest on 05/15/2016 which showed classical Hodgkin's lymphoma involving deep dermis and subcutaneous tissue. Her initial presentation was characterized by raised skin plaques affecting the upper trunk and the facial area. Staging CT scan on 05/30/2016 showed multiple, diffuse, superficial soft tissue nodules (anterior left ear, right ear, upper back, posterior right shoulder, sternoclavicular notch, right lateral aspect of the upper breast, posterior to left scapular and anterior aspect of the right chest wall). The conglomerate adenopathy at the retrocrural and periaortic level overall smaller compared to previous scan reflecting follicular lymphoma. PET-CT on 06/13/2016 showed multiple cutaneous hypermetabolic lesions ([place] 5) involving bilateral neck, just above the right mandibular angle, anterior neck superficial to the thyroid cartilage, chest wall, shoulders and upper arms bilaterally, small left axillary lymph node, extensive retroperitoneal lymphadenpathy most prominent for a bulky left para-aortic lymph nodes measuring 28 x 36 x 75 mm with SUV 11.7, left internal an dexternal iliac lymphadenopathy, right pelvis, cutaneous nodules in the posterior low back and buttocks, Her HD was therefore deemed stage IV. Patient received ABVD from 06/12/2016 through 12/04/2016. After 2 cycles, she had [place] 1 PET response, bleomycin was discontinued. After treatment patient has been on active surveillance. Her CT scan in June of 2017 did not show any evidence of disease recurrence or metastasis. And retroperitoneal lymph nodes were shrinking in size. In early 02/2018, about 1.2 years after she completed ABVD, she developed mild night sweats and dry cough. CT chest abdomen and pelvis on 03/31/2018 showed interval marked increase in the size of retroperitoneal lymphadenopathy most prominent in the left para-aortic space, mildly increased retro-esophageal lymph node sizes and measures up to 12 mm in short axis diameter, by basilar scarring in the lungs and no gross mesenteric adenopathy. On 04/10/2018 patient underwent a bone marrow aspiration biopsy. The hematopathology showed no involvement by lymphoma either follicular or Hodgkin's. Patient underwent PET CT on 04/16/2018. The PET-CT showed hypermetabolic lymph nodes in the posterior mediastinum consistent with recurrent lymphoma ([place] scale 5) and hypermetabolic retroperitoneal and mesenteric lymph nodes consistent with recurrent lymphoma ([place]ville scale 5) (stage III). Patient underwent CT-guided biopsy of left retroperitoneal lymph node April 25, 2018. The pathology confirmed the diagnosis of classic Hodgkin's lymphoma. In the comment, it mentioned that the morphologic and immunohistochemical features are compatible with classic Hodgkin's lymphoma. Features are suggestive of but not definitively diagnostic for nodular sclerosis subtype of classical Hodgkin's lymphoma. There is no evidence of an atypical CD10 positive population by immunohistochemical or by flow cytometric analysis (follicular lymphoma was a clinical consideration). Concomitant flow cytometric analysis was without evidence of an atypical B-cell, T-cell or NK cell population. - Patient Self-Reported Symptoms SR Constitution: Fever, Chills, Fatigue/Malaise, Night Sweats SR ears, nose, mouth, throat issues: Congestion SR respiratory issues: Cough SR Cardiovascular issues: Palpitations SR Gastrointestinal issues: Change in bowel pattern SR Endocrine issues: Hot flashes - Additional ROS All systems PM: reviewed and no additional remarkable complaints except as stated Home Medications and Allergies Home Medications Medication Instructions Recorded Confirmed Type Probiotic 1 cap PO DAILY #0 07/04/12 08/11/18 History coQ10 (ubiquinol) 250 mg PO DAILY #0 07/04/12 08/11/18 History multivitamin 1 tab PO DAILY #0 07/04/12 08/11/18 History [place]-3 Fish Oil 1 cap PO DAILY 05/15/18 08/11/18 History Protandim 1 dose PO DAILY 05/15/18 08/11/18 History Vitamin D Liquid 1 dose TOPICAL DAILY 05/15/18 08/11/18 History ondansetron HCl [Zofran] 4 mg PO Q6-8H PRN #30 tab 05/27/18 08/11/18 Rx diltiazem CD 180 mg 180 mg PO QPM #90 cap 06/03/18 08/11/18 Rx capsule,extended release 24 hr Quercitin 07/10/18 08/11/18 History resveratrol DAILY 07/10/18 08/11/18 History mupirocin 2 % topical ointment 1 applic TOP BID #30 gram 08/11/18 Rx Emmanuel Preciado Drops 08/25/18 History Lymph Support 08/25/18 History Vadim Stress 08/25/18 History Respira Tone 08/25/18 History Thyroid Plus 08/25/18 History Whole Body Detox 08/25/18 History ascorbic acid (vitamin C) [Vitamin 1,000 mg PO DAILY 08/25/18 08/25/18 History C] turmeric (bulk) [Curcumin] DAILY 08/25/18 History Marcus 10/20/18 History Thymus 1,000 mg 10/20/18 History selenium 25 mcg PO DAILY 10/20/18 10/20/18 History Allergies Allergy/AdvReac Type Severity Reaction Status Date / Time NSAIDS (Non-Steroidal Allergy Intermediate HIVES Verified 08/11/18 17:02 Anti-Inflamma [NSAIDS (NON-STEROIDAL ANTI-INFLAMMA] amoxicillin [AMOXICILLIN] Allergy Mild rash Verified 08/11/18 17:02 Exam Vital signs: Vital Signs Temp Pulse Resp BP Pulse Ox 10/20/18 09:32 98.2 F 67 16 110/61 100 Intake and Output 10/19/18 10/20/18 10/20/18 23:59 07:59 15:59 Other: Weight 50.5 kg Patient Weight 10/20/18 23:59 Weight 50.5 kg ECOG 1 Narrative: Constitutional: WDWN, NAD, thin, well groomed, pleasant and cooperative. Accompanied by her friend. HEENT: NCAT, EOMI, PERRLA, anicteric sclera. Neck: Supple, symmetrical, and tracheal midline; No palpable thyromegaly and no palpable lymph nodes. Respiratory: No use of accessory muscles. Clear to auscultation, and no wheezes. Cardiovascular: Regular rate and rhythm, S1 and S2 normal, no murmurs gallops or rubs. Abdomen: Soft, nontender, non-distended, bowel sounds normal, no palpable organomegaly, no hernia, no palpable masses. Lower extremities: No palpable pedal edema. Lymphatic: no palpable lymph nodes in the neck, axillae Musculoskeletal: normal gait and station, no clubbing, no cyanosis, no pitting edema. Skin: no rashes, no ulcers, no petechiae Neurological: Awake and alert and oriented x3. CN II-XII grossly intact. No focal motor or sensory deficit. Psychiatric: Good judgment, good insight, normal affect, normal thought process, cooperative, no de Results - Labs Laboratory Last Values WBC 3.0 X10^3/uL (4.5-11.0) L 10/20/18 09:00 RBC 3.64 X10^6/uL (4.0-5.2) L 10/20/18 09:00 Hgb 11.6 g/dL (12.0-16.0) L 10/20/18 09:00 Hct 33.9 % (36-46) L 10/20/18 09:00 MCV 93.0 fL (80-100) 10/20/18 09:00 MCH 31.8 PG (26-34) 10/20/18 09:00 MCHC 34.2 % (30-36) 10/20/18 09:00 RDW 17.6 % (11.6-14.8) H 10/20/18 09:00 Plt Count 103 X10^3/uL (150-400) L 10/20/18 09:00 Neut % (Auto) 58.7 % (50-75) 10/20/18 09:00 Lymph % (Auto) 20.0 % (25-40) L 10/20/18 09:00 [place] % (Auto) 17.1 % (3-14) H 10/20/18 09:00 Eos % (Auto) 3.3 % (2-4) 10/20/18 09:00 Baso % (Auto) 0.9 % (0-2) 10/20/18 09:00 Neut # (Auto) 1800 /uL (2390-0716) 10/20/18 09:00 Lymph # (Auto) 600 /uL (5772-6646) L 10/20/18 09:00 [place] # (Auto) 500 /uL (0-900) 10/20/18 09:00 Eos # (Auto) 100 /uL (0-450) 10/20/18 09:00 Baso # (Auto) 0 /uL (0-100) 10/20/18 09:00 Total Counted 100 09/08/18 14:10 Seg Neutrophils % 58.0 % (38-70) 09/08/18 14:10 Band Neutrophils % 5.0 % (3-7) 09/08/18 14:10 Lymphocytes % (Manual) 13.0 % (25-45) L 09/08/18 14:10 Atypical Lymphs % 1.0 % (-0) H 09/08/18 14:10 Monocytes % (Manual) 16.0 % (2-11) H 09/08/18 14:10 Eosinophils % (Manual) 6.0 % (2-4) H 09/08/18 14:10 Basophils % (Manual) 1.0 % (0-1) 09/08/18 14:10 Metamyelocytes % 1.0 % (-0) H 08/11/18 10:20 Neutrophils # (Manual) 1323 /uL (4244-3131) L 09/08/18 14:10 Smudge Cells 1+ H 08/05/18 14:30 Dohle Bodies 1+ H 08/11/18 10:20 Platelet Estimate Decreased on smear 08/11/18 10:20 Plt Morphology Comment 08/11/18 10:20 RBC Morphology Not Reportable 09/08/18 14:10 Hypochromasia 1+ H 07/28/18 11:02 Poikilocytosis 1+ H 08/05/18 14:30 Anisocytosis 1+ H 09/08/18 14:10 Microcytosis 1+ H 07/09/18 09:40 Ovalocytes 1+ H 07/28/18 11:02 ESR 83 MM/HR (0-20) H 05/22/18 08:36 PT 14.2 SECONDS (10.1-12.7) H 04/24/18 14:15 INR 1.2 (0.9-1.3) 04/24/18 14:15 Sodium 142 mmol/L (137-145) 10/20/18 09:00 Potassium 3.9 mmol/L (3.4-5.1) 10/20/18 09:00 Chloride 107 mmol/L (98-107) 10/20/18 09:00 Carbon Dioxide 26 mmol/L (22-32) 10/20/18 09:00 BUN 16 mg/dL (7-17) 10/20/18 09:00 Creatinine 0.60 mg/dL (0.52-1.04) 10/20/18 09:00 Estimated GFR > 60.0 mL/min (>60) 10/20/18 09:00 BUN/Creatinine Ratio 26.7 (6-22) H 10/20/18 09:00 Glucose 93 mg/dL (80-110) 10/20/18 09:00 Calcium 9.3 mg/dL (8.4-10.2) 10/20/18 09:00 Total Bilirubin 0.4 mg/dL (0.2-1.3) 10/20/18 09:00 AST 41 IU/L (14-36) H 10/20/18 09:00 ALT 31 IU/L (9-52) 10/20/18 09:00 Alkaline Phosphatase 73 U/L (38-126) 10/20/18 09:00 Lactate Dehydrogenase 552 U/L (313-618) 10/20/18 09:00 Total Protein 6.5 g/dL (6.3-8.2) 10/20/18 09:00 Albumin 4.1 g/dL (3.5-5.0) 10/20/18 09:00 Globulin 2.4 g/dL (1.7-4.1) 10/20/18 09:00 Albumin/Globulin Ratio 1.7 (1.0-2.8) 10/20/18 09:00 Hep Bs Antigen Negative s/c (NEGATIVE) 05/15/18 14:32 Hep Bs Antibody Nonreactive (Nonreactive) 05/15/18 15:31 Hep B Core Total Ab Nonreactive (Nonreactive) 05/15/18 15:31 Hep B Core IgM Ab Nonreactive (Nonreactive) 05/15/18 15:31 Hepatitis C Antibody Negative s/c (NEGATIVE) 05/15/18 14:32 Assessment and Plan (1) Hodgkins lymphoma in relapse Overview: 1. Stage IV classical HD, diagnosed after skin punch biopsy of a lesion on the right superior upper chest on 05/15/2016. CT and PET scan staging showed extens denae multiple superficial soft tissues of the skin and retroperitoneal lymphadenpathy (stage IV) 2. Patient received ABVD from 06/12/2016 through 12/04/2016. After 2 cycles, she had [place] 1 PET response, bleomycin was discontinued. 3. Relapsed in 02/2018, with B symptoms. Confirmed by CT guided retroperitoneal biopsy on 04/25/2018. PET showed above and below diaphragm involvement, with negative BMA/BX. Stage III. 4. Salvage Bendamustine/B-Vedotin on 05/26/2018. Assessment: I reviewed the lab tests with the patient. The ANC was 1.8. The platelet counts were 103K. Discussed with the patient that the current cycle has been delayed for such a long time and I would to dose reduce bendamustine by 25%. Today I also talked with the patient once again about the bone marrow transplant. I talked with her that Dr. Vick called me last week regarding the bone marrow transplant. I updated Dr. Vick about the patient's current situation and that patient has decided that she not planning to go for bone marrow transplant. Patient admitted that she did not get [facility] her decision. Plan: 1. Ok to proceed to Cycle 6# Bendamustine and Brentuximab to 10/13/2018. Dose reduce Bendamustin by 25% 2. PET/CT in 2 weeks for restaging 3. RTC in 3 weeks for follow up visit, review PET/CT and for start of Maintenance Brentuximab. (2) Follicular lymphoma Problem details: Follicular lymphoma diagnosed by needle core biopsy of retroperitoneal lymph nodes on 12/27/2008 that showed atypical lymphoid infiltrate most consistent with follicular lymphoma. 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 FLIPI score was 2. She was consulted at [facility] and active surveillance was recommended. Until now there has been no evidence to suggest recurrence or transformation of her underlying follicular lymphoma. Assessment and Plan: No evidence of recurrence. The CT-guided biopsy of the retroperitoneal lymph node showed no evidence of follicular lymphoma.
[2018-10-20] MEDS: methylPREDNISolone 125 MG/2 ML VIAL 100 MG IV (10:42)
[2018-10-20] MEDS: ONDANSETRON 16 MG in SODIUM CHLORIDE 0.9% 50 ML 232 ML IV (10:42)
[2018-10-20] MEDS: diphenhydrAMINE 25 MG TABLET 50 MG PO (10:43)
[2018-10-20] MEDS: SODIUM CHLORIDE 0.9% 100 ML 20 ML IV (10:43)
[2018-10-20] MEDS: SODIUM CHLORIDE 0.9% IV (11:36)
[2018-10-20] MEDS: BRENTUXIMAB VEDOTIN IV (11:36)
[2018-10-20] MEDS: NORMAL SALINE IV (12:24)
[2018-10-20] MEDS: BENDAMUSTINE IV (12:24)
--- NOTE | 2018-10-21 12:07 | PC.NURSE ---
Patient called reporting sclera of eye to be totally red and that she would be seeing eye doctor at 1330 and needs to postpone treatment appt of today. This nurse said she should still come in for treatment as long as able to arrive by 1430 and otherwise we need to postpone until tomorrow. Patient stated she will call if she will be delayed longer than 1430.
[2018-10-21] MEDS: SODIUM CHLORIDE 0.9% 1,000 ML 1000 ML IV (15:22)
[2018-10-21 15:26] VITALS: BP 127/72; PULSE 75; RESP 16; TEMP 36.8; O2SAT 97
[2018-10-21] MEDS: ONDANSETRON 16 MG in SODIUM CHLORIDE 0.9% 50 ML 232 ML IV (15:41)
[2018-10-21] MEDS: BENDAMUSTINE IV (16:08)
[2018-10-21] MEDS: NORMAL SALINE IV (16:08)
--- NOTE | 2018-11-04 08:17 | PC.NURSE ---
SHINGLES: Patient came in reporting that she has shingles and is on medication.
--- NOTE | 2018-11-10 08:56 | ONC.PN ---
PN -Subjective Interval history: 73-year-old female with history Hodgkin's lymphoma and low-grade follicular lymphoma here for follow up visit. Interim Events: Patient completed 6 rounds of bendamustine and brentuximab for Hodgkin's lymphoma. She presents here today for initiation of first round of maintenance therapy with brentuximab. Patient underwent PET scan on 11/05/2018. The scan showed a focus of increased focal radiotracer uptake within the posterior right pelvis anterior to the right common iliac artery and vein that is stable to comparison exam of 08/06/2018 with no convincing correlating soft tissue mass or enlarged lymph node on CT. Attention on follow-up is recommended. Otherwise no convincing PET/CT evidence of hypermetabolic lymphadenopathy within the imaged neck, chest, abdomen, and pelvis. Patient had a right sided shingles about 3 or 4 rashes. Patient is currently getting the Valtrex with good response. No fever and no chills. Oncology History Her follicular lymphoma was diagnosed after core needle biopsy of retroperitoneal lymph nodes on 12/27/2008 that showed atypical lymphoid infiltrate most consistent with follicular lymphoma. 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 FLIPI score was 2. She was consulted at [facility] and active surveillance was recommended. Her Hodgkin's lymphoma was diagnosed after skin punch biopsy of a lesion on the right superior upper chest on 05/15/2016 which showed classical Hodgkin's lymphoma involving deep dermis and subcutaneous tissue. Her initial presentation was characterized by raised skin plaques affecting the upper trunk and the facial area. Staging CT scan on 05/30/2016 showed multiple, diffuse, superficial soft tissue nodules (anterior left ear, right ear, upper back, posterior right shoulder, sternoclavicular notch, right lateral aspect of the upper breast, posterior to left scapular and anterior aspect of the right chest wall). The conglomerate adenopathy at the retrocrural and periaortic level overall smaller compared to previous scan reflecting follicular lymphoma. PET-CT on 06/13/2016 showed multiple cutaneous hypermetabolic lesions ([place] 5) involving bilateral neck, just above the right mandibular angle, anterior neck superficial to the thyroid cartilage, chest wall, shoulders and upper arms bilaterally, small left axillary lymph node, extensive retroperitoneal lymphadenpathy most prominent for a bulky left para-aortic lymph nodes measuring 28 x 36 x 75 mm with SUV 11.7, left internal an dexternal iliac lymphadenopathy, right pelvis, cutaneous nodules in the posterior low back and buttocks, Her HD was therefore deemed stage IV. Patient received ABVD from 06/12/2016 through 12/04/2016. After 2 cycles, she had [place] 1 PET response, bleomycin was discontinued. After treatment patient has been on active surveillance. Her CT scan in June of 2017 did not show any evidence of disease recurrence or metastasis. And retroperitoneal lymph nodes were shrinking in size. In early 02/2018, about 1.2 years after she completed ABVD, she developed mild night sweats and dry cough. CT chest abdomen and pelvis on 03/31/2018 showed interval marked increase in the size of retroperitoneal lymphadenopathy most prominent in the left para-aortic space, mildly increased retro-esophageal lymph node sizes and measures up to 12 mm in short axis diameter, by basilar scarring in the lungs and no gross mesenteric adenopathy. On 04/10/2018 patient underwent a bone marrow aspiration biopsy. The hematopathology showed no involvement by lymphoma either follicular or Hodgkin's. Patient underwent PET CT on 04/16/2018. The PET-CT showed hypermetabolic lymph nodes in the posterior mediastinum consistent with recurrent lymphoma ([place] scale 5) and hypermetabolic retroperitoneal and mesenteric lymph nodes consistent with recurrent lymphoma ([place]ville scale 5) (stage III). Patient underwent CT-guided biopsy of left retroperitoneal lymph node April 25, 2018. The pathology confirmed the diagnosis of classic Hodgkin's lymphoma. In the comment, it mentioned that the morphologic and immunohistochemical features are compatible with classic Hodgkin's lymphoma. Features are suggestive of but not definitively diagnostic for nodular sclerosis subtype of classical Hodgkin's lymphoma. There is no evidence of an atypical CD10 positive population by immunohistochemical or by flow cytometric analysis (follicular lymphoma was a clinical consideration). Concomitant flow cytometric analysis was without evidence of an atypical B-cell, T-cell or NK cell population. - Patient Self-Reported Symptoms SR Constitution: Fever, Chills, Fatigue/Malaise, Night Sweats SR ears, nose, mouth, throat issues: Congestion SR respiratory issues: Cough SR Cardiovascular issues: Palpitations SR Gastrointestinal issues: Change in bowel pattern SR Endocrine issues: Hot flashes - Additional ROS All systems PM: reviewed and no additional remarkable complaints except as stated Home Medications and Allergies Home Medications Medication Instructions Recorded Confirmed Type Probiotic 1 cap PO DAILY #0 07/04/12 10/31/18 History coQ10 (ubiquinol) 250 mg PO DAILY #0 07/04/12 10/31/18 History multivitamin 1 tab PO DAILY #0 07/04/12 10/31/18 History [place]-3 Fish Oil 1 cap PO DAILY 05/15/18 10/31/18 History Protandim 1 dose PO DAILY 05/15/18 10/31/18 History Vitamin D Liquid 1 dose TOPICAL DAILY 05/15/18 10/31/18 History ondansetron HCl [Zofran] 4 mg PO Q6-8H PRN #30 tab 05/27/18 10/31/18 Rx diltiazem CD 180 mg 180 mg PO QPM #90 cap 06/03/18 10/31/18 Rx capsule,extended release 24 hr Quercitin 07/10/18 10/31/18 History resveratrol DAILY 07/10/18 10/31/18 History mupirocin 2 % topical ointment 1 applic TOP BID #30 gram 08/11/18 10/31/18 Rx Emmanuel Preciado Drops 08/25/18 10/31/18 History Lymph Support 08/25/18 10/31/18 History Vadim Stress 08/25/18 10/31/18 History Respira Tone 08/25/18 10/31/18 History Thyroid Plus 08/25/18 10/31/18 History Whole Body Detox 08/25/18 10/31/18 History ascorbic acid (vitamin C) [Vitamin 1,000 mg PO DAILY 08/25/18 10/31/18 History C] turmeric (bulk) [Curcumin] DAILY 08/25/18 10/31/18 History Marcus 10/20/18 10/31/18 History Thymus 1,000 mg 10/20/18 10/31/18 History selenium 25 mcg PO DAILY 10/20/18 10/31/18 History Allergies Allergy/AdvReac Type Severity Reaction Status Date / Time NSAIDS (Non-Steroidal Allergy Intermediate HIVES Verified 10/31/18 09:13 Anti-Inflamma [NSAIDS (NON-STEROIDAL ANTI-INFLAMMA] amoxicillin [AMOXICILLIN] Allergy Mild rash Verified 10/31/18 09:13 Exam Vital signs: Last Vital Signs Temp 98.3 F 11/10/18 09:22 Pulse 75 11/10/18 09:22 Resp 16 11/10/18 09:22 BP 105/65 11/10/18 09:22 Pulse Ox 98 11/10/18 09:22 Narrative: Constitutional: WDWN, NAD, thin, well groomed, pleasant and cooperative. Accompanied by her friend. ECOG 1 HEENT: NCAT, EOMI, PERRLA, anicteric sclera. Neck: Supple, symmetrical, and tracheal midline; No palpable thyromegaly and no palpable lymph nodes. Respiratory: No use of accessory muscles. Clear to auscultation, and no wheezes. Cardiovascular: Regular rate and rhythm, S1 and S2 normal, no murmurs gallops or rubs. Abdomen: Soft, nontender, non-distended, bowel sounds normal, no palpable organomegaly, no hernia, no palpable masses. Lower extremities: No palpable pedal edema. Lymphatic: no palpable lymph nodes in the neck, axillae Musculoskeletal: normal gait and station, no clubbing, no cyanosis, no pitting edema. Skin: no rashes, no ulcers, no petechiae Neurological: Awake and alert and oriented x3. CN II-XII grossly intact. No focal motor or sensory deficit. Psychiatric: Good judgment, good insight, normal affect Results - Labs Laboratory Last Values WBC 1.8 X10^3/uL (4.5-11.0) L* 11/10/18 08:40 RBC 3.77 X10^6/uL (4.0-5.2) L 11/10/18 08:40 Hgb 12.1 g/dL (12.0-16.0) 11/10/18 08:40 Hct 35.4 % (36-46) L 11/10/18 08:40 MCV 94.0 fL (80-100) 11/10/18 08:40 MCH 32.1 PG (26-34) 11/10/18 08:40 MCHC 34.1 % (30-36) 11/10/18 08:40 RDW 16.6 % (11.6-14.8) H 11/10/18 08:40 Plt Count 98 X10^3/uL (150-400) L 11/10/18 08:40 Neut % (Auto) Not Reportable 11/10/18 08:40 Lymph % (Auto) Not Reportable 11/10/18 08:40 Harding % (Auto) Not Reportable 11/10/18 08:40 Eos % (Auto) Not Reportable 11/10/18 08:40 Baso % (Auto) Not Reportable 11/10/18 08:40 Neut # (Auto) 1800 /uL (8653-0785) 10/20/18 09:00 Lymph # (Auto) Not Reportable 11/10/18 08:40 Harding # (Auto) Not Reportable 11/10/18 08:40 Eos # (Auto) 100 /uL (0-450) 10/20/18 09:00 Baso # (Auto) Not Reportable 11/10/18 08:40 Total Counted 50 11/10/18 08:40 Seg Neutrophils % 34.0 % (38-70) L 11/10/18 08:40 Band Neutrophils % 4.0 % (3-7) 11/10/18 08:40 Lymphocytes % (Manual) 24.0 % (25-45) L 11/10/18 08:40 Atypical Lymphs % 4.0 % (-0) H 11/10/18 08:40 Monocytes % (Manual) 32.0 % (2-11) H 11/10/18 08:40 Eosinophils % (Manual) 6.0 % (2-4) H 09/08/18 14:10 Basophils % (Manual) 2.0 % (0-1) H 11/10/18 08:40 Metamyelocytes % 1.0 % (-0) H 08/11/18 10:20 Neutrophils # (Manual) 684 /uL (8502-9590) L 11/10/18 08:40 Smudge Cells 1+ H 08/05/18 14:30 Dohle Bodies 1+ H 08/11/18 10:20 Platelet Estimate Decreased on smear 08/11/18 10:20 Plt Morphology Comment 08/11/18 10:20 RBC Morphology Normal morphology 11/10/18 08:40 Hypochromasia 1+ H 07/28/18 11:02 Poikilocytosis 1+ H 08/05/18 14:30 Anisocytosis 1+ H 09/08/18 14:10 Microcytosis 1+ H 07/09/18 09:40 Ovalocytes 1+ H 07/28/18 11:02 ESR 83 MM/HR (0-20) H 05/22/18 08:36 PT 14.2 SECONDS (10.1-12.7) H 04/24/18 14:15 INR 1.2 (0.9-1.3) 04/24/18 14:15 Sodium 140 mmol/L (137-145) 11/10/18 08:40 Potassium 3.9 mmol/L (3.4-5.1) 11/10/18 08:40 Chloride 106 mmol/L (98-107) 11/10/18 08:40 Carbon Dioxide 28 mmol/L (22-32) 11/10/18 08:40 BUN 13 mg/dL (7-17) 11/10/18 08:40 Creatinine 0.60 mg/dL (0.52-1.04) 11/10/18 08:40 Estimated GFR > 60.0 mL/min (>60) 11/10/18 08:40 BUN/Creatinine Ratio 21.7 (6-22) 11/10/18 08:40 Glucose 98 mg/dL (80-110) 11/10/18 08:40 Calcium 9.2 mg/dL (8.4-10.2) 11/10/18 08:40 Total Bilirubin 0.4 mg/dL (0.2-1.3) 11/10/18 08:40 AST 51 IU/L (14-36) H 11/10/18 08:40 ALT 29 IU/L (9-52) 11/10/18 08:40 Alkaline Phosphatase 84 U/L (38-126) 11/10/18 08:40 Lactate Dehydrogenase 552 U/L (313-618) 10/20/18 09:00 Total Protein 6.7 g/dL (6.3-8.2) 11/10/18 08:40 Albumin 4.0 g/dL (3.5-5.0) 11/10/18 08:40 Globulin 2.7 g/dL (1.7-4.1) 11/10/18 08:40 Albumin/Globulin Ratio 1.5 (1.0-2.8) 11/10/18 08:40 Hep Bs Antigen Negative s/c (NEGATIVE) 02/21/19 14:32 Hep Bs Antibody Nonreactive (Nonreactive) 05/15/18 15:31 Hep B Core Total Ab Nonreactive (Nonreactive) 05/15/18 15:31 Hep B Core IgM Ab Nonreactive (Nonreactive) 05/15/18 15:31 Hepatitis C Antibody Negative s/c (NEGATIVE) 05/15/18 14:32 Assessment and Plan (1) Hodgkins lymphoma in relapse Overview: 1. Stage IV classical HD, diagnosed after skin punch biopsy of a lesion on the right superior upper chest on 05/15/2016. CT and PET scan staging showed extensive multiple superficial soft tissues of the skin and retroperitoneal lymphadenpathy (stage IV) 2. Patient received ABVD from 06/12/2016 through 12/04/2016. After 2 cycles, she had [place] 1 PET response, bleomycin was discontinued. 3. Relapsed in 02/2018, with B symptoms. Confirmed by CT guided retroperitoneal biopsy on 04/25/2018. PET showed above and below diaphragm involvement, with negative BMA/BX. Stage III. 4. Salvage Bendamustine/B-Vedotin on 05/26/2018. Assessment: I talked with the patient and her friend first about the PET scan results. It showed the stable right pelvic hypermetabolic lesion without correlating CT findings. Our radiologist is suspicious that this may represent distal ureter tracer uptake. Continued follow-up is recommended. Otherwise no other hypermetabolic lesions. I also reviewed the laboratory tests from today. Patient has a low white cell count of 1.8. Talked with her that I will hold off the initiation of brentuximab vedotin and will see the patient in about a month and re-evaluate. If patient's bone marrow function is not recovering, I would favor permanently stopping brentuximab and will discuss with the patient about immunotherapy. Patient voiced understanding. Plan: 1. Hold initiation of maintenance BV 2. RTC in one month, CBC, CMP, LDH. (2) Follicular lymphoma Overview: Follicular lymphoma diagnosed by needle core biopsy of retroperitoneal lymph nodes on 12/27/2008 that showed atypical lymphoid infiltrate most consistent with follicular lymphoma. 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 FLIPI score was 2. She was consulted at [facility] and active surveillance was recommended. Until now there has been no evidence to suggest recurrence or transformation of her underlying follicular lymphoma. Assessment and Plan: No evidence of recurrence. The CT-guided biopsy of the retroperitoneal lymph node on April 25, 2018 showed no evidence of follicular lymphoma, but relapsed HD (see above)
[2018-11-10 09:00] LABS: Hematocrit 35.4 % (36-46); Hemoglobin 12.1 g/dL (12.0-16.0); Mean Corpuscular HGB Conc 34.1 % (30-36); Mean Corpuscular Hemoglobin 32.1 PG (26-34); Platelet Count 98 X10^3/uL (150-400); Red Blood Cell Count 3.77 X10^6/uL (4.0-5.2); Red Cell Distribution Width 16.6 % (11.6-14.8)
[2018-11-10 09:02] LABS: Add Manual Diff / Slide Review YES; White Blood Cell Count 1.8 X10^3/uL (4.5-11.0)
[2018-11-10 09:09] LABS: Alanine Aminotransferase 29 IU/L (9-52); Albumin Globulin Ratio 1.5 (1.0-2.8); Alkaline Phosphatase 84 U/L (38-126); Aspartate Aminotransferase 51 IU/L (14-36); BUN Creatinine Ratio 21.7 (6-22); Bilirubin Total 0.4 mg/dL (0.2-1.3); Blood Urea Nitrogen 13 mg/dL (7-17); Calcium 9.2 mg/dL (8.4-10.2); Carbon Dioxide 28 mmol/L (22-32); Chloride 106 mmol/L (98-107); Estimated Glomerular Filt Rate > 60.0 mL/min (>60); Globulin 2.7 g/dL (1.7-4.1); Glucose 98 mg/dL (80-110); HEMOLYSIS < 15 (0-50); Potassium 3.9 mmol/L (3.4-5.1); Sodium 140 mmol/L (137-145); Total Protein 6.7 g/dL (6.3-8.2)
[2018-11-10 09:22] VITALS: BP 105/65; PULSE 75; RESP 16; TEMP 36.8; O2SAT 98
[2018-11-10 09:49] LABS: Neutrophils Absolute Manual 684 /uL (3000-5900); RBC Morphology Normal Morphology; Total Cells Counted 50
--- NOTE | 2018-11-11 13:36 | PC.NURSE ---
BLOOD CULTURES: patient called to ask re blood culture results, this nurse returned call reporting preliminary report negative for growth and that a request for confirmation to stop antibiotics has been faxed to Dr. Gongora and patient will be informed when we receive his response. Patient stated that we can leave a message on her [employer]. machine.
--- NOTE | 2018-11-11 16:47 | PC.NURSE ---
LEVAQUIN: patient instructed per Dr. Gongora's verbal order to finish the Levaquin Rx due to low ANC.
[2018-12-08 10:34] LABS: Add Manual Diff / Slide Review NO; Basophils Absolute Auto 0 /uL (0-100); Basophils Percent Auto 0.8 % (0-2); Eosinophils Absolute Auto 100 /uL (0-450); Eosinophils Percent Auto 3.1 % (2-4); Hemoglobin 12.4 g/dL (12.0-16.0); Lymphocytes Absolute Auto 600 /uL (1100-4500); Lymphocytes Percent Auto 19.2 % (25-40); Mean Corpuscular HGB Conc 34.5 % (30-36); Mean Corpuscular Hemoglobin 32.2 PG (26-34); Mean Corpuscular Volume 93.4 fL (80-100); Monocytes Absolute Auto 600 /uL (0-900); Neutrophils Absolute Auto 2000 /uL (1500-7000); Neutrophils Percent Auto 58.9 % (50-75); Platelet Count 104 X10^3/uL (150-400); Red Blood Cell Count 3.86 X10^6/uL (4.0-5.2); Red Cell Distribution Width 15.6 % (11.6-14.8); White Blood Cell Count 3.4 X10^3/uL (4.5-11.0)
[2018-12-08 10:56] LABS: Alanine Aminotransferase 39 IU/L (9-52); Albumin 4.4 g/dL (3.5-5.0); Albumin Globulin Ratio 1.8 (1.0-2.8); Alkaline Phosphatase 96 U/L (38-126); Aspartate Aminotransferase 59 IU/L (14-36); BUN Creatinine Ratio 26.7 (6-22); Bilirubin Total 0.5 mg/dL (0.2-1.3); Blood Urea Nitrogen 16 mg/dL (7-17); Calcium 9.5 mg/dL (8.4-10.2); Carbon Dioxide 26 mmol/L (22-32); Chloride 104 mmol/L (98-107); Estimated Glomerular Filt Rate > 60.0 mL/min (>60); Globulin 2.4 g/dL (1.7-4.1); Glucose 92 mg/dL (80-110); HEMOLYSIS 17 (0-50); Lactate Dehydrogenase 630 U/L (313-618); Potassium 4.1 mmol/L (3.4-5.1); Sodium 141 mmol/L (137-145); Total Protein 6.8 g/dL (6.3-8.2)
[2018-12-08 11:35] VITALS: BP 123/69; PULSE 68; RESP 16; TEMP 36.5; O2SAT 98
--- NOTE | 2018-12-08 11:48 | P.PNONC_ITS ---
PN -Subjective Interval history: ID/CC: 73-year-old female with history Hodgkin's lymphoma and low-grade follicular lymphoma now with relapsed HL on salvage chemotherapy. Oncology History She was diagnosed with follicular lymphoma after retroperitoneal lymph nodes needle biopsy on 12/27/2008. BMA/Bx on 12/24/2008 showed low level involvement by follicular lymphoma. She was consulted at [facility] and active surveillance was recommended. She was diagnosed with Hodgkin's lymphoma after skin punch biopsy of a lesion on the right superior upper chest on 05/15/2016. PET-CT on 06/13/2016 showed stage IV. Patient received ABVD from 06/12/2016 - 12/04/2016. After 2 cycles, she had [place] 1 PET response, bleomycin was discontinued. After treatment patient has been on active surveillance. In early 02/2018, she developed mild night sweats and dry cough. Scans (CT & PET) showed hypermetabolic lymph nodes in the posterior mediastinum (Deauville scale 5) and hypermetabolic retroperitoneal and mesenteric lymph nodes (Deauville scale 5) (stage III). Patient underwent CT-guided biopsy of left retroperitoneal lymph node April 25, 2018 confirmed the diagnosis of classic Hodgkin's lymphoma. BMA/Bx negative for HD/FL. Patient completed 6 rounds of bendamustine and brentuximab for Hodgkin's lymphoma from 05/26/2018 through 10/21/2018. Patient underwent PET scan on 11/05/2018 showed a focus of increased focal radiotracer uptake within the posterior right pelvis anterior to the right common iliac artery and vein that is stable to comparison exam of 08/06/2018 with no convincing correlating soft tissue mass or enlarged lymph node on CT. Otherwise no convincing PET/CT evidence of hypermetabolic lymphadenopathy within the imaged neck, chest, abdomen, and pelvis. Interim Events: Due to prolonged leukopenia and thrombocytopenia, maintenance brentuximab has bee deferred. She presents today for scheduled follow up visit. Clinically, she has been making progress. No fever, no night sweats, no nausea and no vomiting. She is complaining of mild tingling of her hands and feet. No new lumps or bumps. - Patient Self-Reported Symptoms SR Constitution: Fever, Chills, Fatigue/Malaise, Night Sweats SR ears, nose, mouth, throat issues: Cough SR respiratory issues: Cough SR Cardiovascular issues: Palpitations SR Gastrointestinal issues: Change in bowel pattern SR Neuro issues: Numbness or tingling, Difficulty balancing SR Endocrine issues: Hot flashes - Additional ROS All systems PM: reviewed and no additional remarkable complaints except as stated Home Medications and Allergies Home Medications Medication Instructions Recorded Confirmed Type Probiotic 1 cap PO DAILY #0 07/04/12 10/31/18 History coQ10 (ubiquinol) 250 mg PO DAILY #0 07/04/12 10/31/18 History multivitamin 1 tab PO DAILY #0 07/04/12 10/31/18 History [place]-3 Fish Oil 1 cap PO DAILY 05/15/18 10/31/18 History Protandim 1 dose PO DAILY 05/15/18 10/31/18 History Vitamin D Liquid 1 dose TOPICAL DAILY 05/15/18 10/31/18 History ondansetron HCl [Zofran] 4 mg PO Q6-8H PRN #30 tab 05/27/18 10/31/18 Rx diltiazem HCl 180 mg 180 mg PO QPM #90 cap 06/03/18 10/31/18 Rx capsule,extended release 24 hr Quercitin 07/10/18 10/31/18 History resveratrol DAILY 07/10/18 10/31/18 History mupirocin 2 % topical ointment 1 applic TOP BID #30 gram 08/11/18 10/31/18 Rx Emmanuel Preciado Drops 08/25/18 10/31/18 History Lymph Support 08/25/18 10/31/18 History Vadim Stress 08/25/18 10/31/18 History Respira Tone 08/25/18 10/31/18 History Thyroid Plus 08/25/18 10/31/18 History Whole Body Detox 08/25/18 10/31/18 History ascorbic acid (vitamin C) [Vitamin 1,000 mg PO DAILY 08/25/18 10/31/18 History C] turmeric (bulk) [Curcumin] DAILY 08/25/18 10/31/18 History Marcus 10/20/18 10/31/18 History Thymus 1,000 mg 10/20/18 10/31/18 History selenium 25 mcg PO DAILY 10/20/18 10/31/18 History Allergies Allergy/AdvReac Type Severity Reaction Status Date / Time NSAIDS (Non-Steroidal Allergy Intermediate HIVES Verified 10/31/18 09:13 Anti-Inflamma [NSAIDS (NON-STEROIDAL ANTI-INFLAMMA] amoxicillin [AMOXICILLIN] Allergy Mild rash Verified 10/31/18 09:13 Exam Vital signs: Vital Signs Temp Pulse Resp BP Pulse Ox 12/08/18 11:35 97.7 F 68 16 123/69 98 Intake and Output 12/07/18 12/08/18 12/08/18 23:59 07:59 15:59 Other: Weight 51.7 kg Patient Weight 12/08/18 23:59 Weight 51.7 kg Narrative: Constitutional: WDWN, NAD, thin, well groomed, pleasant and cooperative. Accompanied by her friend. ECOG 1 HEENT: NCAT, EOMI, PERRLA, anicteric sclera. Neck: Supple, symmetrical, and tracheal midline; No palpable thyromegaly and no palpable lymph nodes. Respiratory: No use of accessory muscles. Clear to auscultation, and no wheezes. Cardiovascular: Regular rate and rhythm, S1 and S2 normal, no murmurs gallops or rubs. Abdomen: Soft, nontender, non-distended, bowel sounds normal, no palpable organomegaly, no hernia, no palpable masses. Lower extremities: No palpable pedal edema. Lymphatic: no palpable lymph nodes in the neck, axillae Musculoskeletal: normal gait and station, no clubbing, no cyanosis, no pitting edema. Skin: no rashes, no ulcers, no petechiae Neurological: Awake and alert and oriented x3. CN II-XII grossly intact. No focal motor or sensory deficit. Psychiatric: Good judgment, good insight, normal affect Results - Labs Laboratory Last Values WBC 3.4 X10^3/uL (4.5-11.0) L 12/08/18 10:20 RBC 3.86 X10^6/uL (4.0-5.2) L 12/08/18 10:20 Hgb 12.4 g/dL (12.0-16.0) 12/08/18 10:20 Hct 36.0 % (36-46) 12/08/18 10:20 MCV 93.4 fL (80-100) 12/08/18 10:20 MCH 32.2 PG (26-34) 12/08/18 10:20 MCHC 34.5 % (30-36) 12/08/18 10:20 RDW 15.6 % (11.6-14.8) H 12/08/18 10:20 Plt Count 104 X10^3/uL (150-400) L 12/08/18 10:20 Neut % (Auto) 58.9 % (50-75) 12/08/18 10:20 Lymph % (Auto) 19.2 % (25-40) L 12/08/18 10:20 [place] % (Auto) 18.0 % (3-14) H 12/08/18 10:20 Eos % (Auto) 3.1 % (2-4) 12/08/18 10:20 Baso % (Auto) 0.8 % (0-2) 12/08/18 10:20 Neut # (Auto) 2000 /uL (4518-6104) 12/08/18 10:20 Lymph # (Auto) 600 /uL (8181-7008) L 12/08/18 10:20 [place] # (Auto) 600 /uL (0-900) 12/08/18 10:20 Eos # (Auto) 100 /uL (0-450) 12/08/18 10:20 Baso # (Auto) 0 /uL (0-100) 12/08/18 10:20 Total Counted 50 11/10/18 08:40 Seg Neutrophils % 34.0 % (38-70) L 11/10/18 08:40 Band Neutrophils % 4.0 % (3-7) 11/10/18 08:40 Lymphocytes % (Manual) 24.0 % (25-45) L 11/10/18 08:40 Atypical Lymphs % 4.0 % (-0) H 11/10/18 08:40 Monocytes % (Manual) 32.0 % (2-11) H 11/10/18 08:40 Eosinophils % (Manual) 6.0 % (2-4) H 09/08/18 14:10 Basophils % (Manual) 2.0 % (0-1) H 11/10/18 08:40 Metamyelocytes % 1.0 % (-0) H 08/11/18 10:20 Neutrophils # (Manual) 684 /uL (6235-8266) L 11/10/18 08:40 Smudge Cells 1+ H 08/05/18 14:30 Dohle Bodies 1+ H 08/11/18 10:20 Platelet Estimate Decreased on smear 08/11/18 10:20 Plt Morphology Comment 08/11/18 10:20 RBC Morphology Normal morphology 11/10/18 08:40 Hypochromasia 1+ H 07/28/18 11:02 Poikilocytosis 1+ H 08/05/18 14:30 Anisocytosis 1+ H 09/08/18 14:10 Microcytosis 1+ H 07/09/18 09:40 Ovalocytes 1+ H 07/28/18 11:02 ESR 83 MM/HR (0-20) H 05/22/18 08:36 PT 14.2 SECONDS (10.1-12.7) H 04/24/18 14:15 INR 1.2 (0.9-1.3) 04/24/18 14:15 Sodium 141 mmol/L (137-145) 12/08/18 10:20 Potassium 4.1 mmol/L (3.4-5.1) 12/08/18 10:20 Chloride 104 mmol/L (98-107) 12/08/18 10:20 Carbon Dioxide 26 mmol/L (22-32) 12/08/18 10:20 BUN 16 mg/dL (7-17) 12/08/18 10:20 Creatinine 0.60 mg/dL (0.52-1.04) 12/08/18 10:20 Estimated GFR > 60.0 mL/min (>60) 12/08/18 10:20 BUN/Creatinine Ratio 26.7 (6-22) H 12/08/18 10:20 Glucose 92 mg/dL (80-110) 12/08/18 10:20 Calcium 9.5 mg/dL (8.4-10.2) 12/08/18 10:20 Total Bilirubin 0.5 mg/dL (0.2-1.3) 12/08/18 10:20 AST 59 IU/L (14-36) H 12/08/18 10:20 ALT 39 IU/L (9-52) 12/08/18 10:20 Alkaline Phosphatase 96 U/L (38-126) 12/08/18 10:20 Lactate Dehydrogenase 630 U/L (313-618) H 12/08/18 10:20 Total Protein 6.8 g/dL (6.3-8.2) 12/08/18 10:20 Albumin 4.4 g/dL (3.5-5.0) 12/08/18 10:20 Globulin 2.4 g/dL (1.7-4.1) 12/08/18 10:20 Albumin/Globulin Ratio 1.8 (1.0-2.8) 12/08/18 10:20 Hep Bs Antigen Negative s/c (NEGATIVE) 05/15/18 14:32 Hep Bs Antibody Nonreactive (Nonreactive) 05/15/18 15:31 Hep B Core Total Ab Nonreactive (Nonreactive) 05/15/18 15:31 Hep B Core IgM Ab Nonreactive (Nonreactive) 05/15/18 15:31 Hepatitis C Antibody Negative s/c (NEGATIVE) 05/15/18 14:32 Assessment and Plan (1) Hodgkins lymphoma in relapse Overview: 1. Stage IV classical HD, diagnosed after skin punch biopsy of a lesion on the right superior upper chest on 05/15/2016. CT and PET scan staging showed extensive multiple superficial soft tissues of the skin and retroperitoneal lymphadenpathy (stage IV) 2. Patient received ABVD from 06/12/2016 through 12/04/2016. After 2 cycles, she had [place] 1 PET response, bleomycin was discontinued. 3. Relapsed in 02/2018, with B symptoms. Confirmed by CT guided retroperitoneal biopsy on 04/25/2018. PET showed above and below diaphragm involvement, with negative BMA/BX. Stage III. 4. Salvage Bendamustine/B-Vedotin x 6 cycles from 05/26/2018 to 10/21/2018. Assessment: Today I reviewed the laboratory results with the patient. Even though pancytopenia is improving, still the white cell count is 3.4 and platelet counts just over 100K. I talked with the patient that I will continue to hold off on the brentuximab vedotin maintenance therapy. We will have the patient come back in about a month and re-evaluate. We may consider switching therapy to immunotherapy as a maintenance. Plan: 1. Hold initiation of maintenance BV 2. RTC in one month, CBC, CMP, LDH. (2) Follicular lymphoma Overview: Follicular lymphoma diagnosed by needle core biopsy of retroperitoneal lymph nodes on 12/27/2008 that showed atypical lymphoid infiltrate most consistent with follicular lymphoma. 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 FLIPI score was 2. She was consulted at [facility] and active surveillance was recommended. Until now there has been no evidence to suggest recurrence or transformation of her underlying follicular lymphoma. Assessment and Plan: No evidence of recurrence. The CT-guided biopsy of the retroperitoneal lymph node on April 25, 2018 showed no evidence of follicular lymphoma, but relapsed HD (see above)
--- NOTE | 2018-12-10 12:18 | ONC.SCHED ---
Patient walked in today asking if she could bring her own Benadryl for the days when she gets treatment. I went back and asked both Paulette Sears and Kristen Browne and they both said that she could take it before she comes but not bring the medication in to take. I let Leigh know what they said. Leigh will call back and talk to the triage nurse about the MG that she normally gets in order for her to know how much to take. The patient's concern was it costs her $20 for that Benadryl each time. This note is to verify that I have asked both Paulette Sears and Kristen but also the patient will call back as I instructed her to get ahold of the triage nurse regarding how much to take.
--- NOTE | 2018-12-16 16:04 | PC.NURSE ---
Message left for Leigh that she can take her own Benadryl or bring it with her in order to reduce her cost of which she was concerned.
[2019-01-05 11:18] LABS: Add Manual Diff / Slide Review NO; Basophils Absolute Auto 0 /uL (0-100); Basophils Percent Auto 0.8 % (0-2); Eosinophils Absolute Auto 100 /uL (0-450); Eosinophils Percent Auto 2.4 % (2-4); Hematocrit 35.9 % (36-46); Hemoglobin 12.3 g/dL (12.0-16.0); Lymphocytes Absolute Auto 900 /uL (1100-4500); Lymphocytes Percent Auto 23.9 % (25-40); Mean Corpuscular HGB Conc 34.3 % (30-36); Mean Corpuscular Volume 93.2 fL (80-100); Monocytes Absolute Auto 500 /uL (0-900); Monocytes Percent Auto 14.1 % (3-14); Neutrophils Absolute Auto 2200 /uL (1500-7000); Neutrophils Percent Auto 58.8 % (50-75); Platelet Count 116 X10^3/uL (150-400); Red Blood Cell Count 3.85 X10^6/uL (4.0-5.2); Red Cell Distribution Width 14.3 % (11.6-14.8); White Blood Cell Count 3.8 X10^3/uL (4.5-11.0)
[2019-01-05 11:33] LABS: Alanine Aminotransferase 35 IU/L (9-52); Albumin 4.5 g/dL (3.5-5.0); Albumin Globulin Ratio 1.7 (1.0-2.8); Alkaline Phosphatase 78 U/L (38-126); Aspartate Aminotransferase 71 IU/L (14-36); BUN Creatinine Ratio 31.7 (6-22); Blood Urea Nitrogen 19 mg/dL (7-17); Calcium 9.2 mg/dL (8.4-10.2); Carbon Dioxide 29 mmol/L (22-32); Chloride 104 mmol/L (98-107); Estimated Glomerular Filt Rate > 60.0 mL/min (>60); Globulin 2.7 g/dL (1.7-4.1); Glucose 88 mg/dL (80-110); Sodium 138 mmol/L (137-145); Total Protein 7.2 g/dL (6.3-8.2)
[2019-01-05 11:38] LABS: HEMOLYSIS 188 (0-50); Potassium 4.9 mmol/L (3.4-5.1)
[2019-01-05 11:52] VITALS: BP 124/70; PULSE 68; RESP 16; TEMP 36.6; O2SAT 97
--- NOTE | 2019-01-05 12:00 | ONC.PN ---
PN -Subjective Interval history: ID/CC: 73-year-old female with history Hodgkin's lymphoma and low-grade follicular lymphoma now with relapsed HL on salvage chemotherapy. Oncology History She was diagnosed with follicular lymphoma after retroperitoneal lymph nodes needle biopsy on 12/27/2008. BMA/Bx on 12/24/2008 showed low level involvement by follicular lymphoma. She was consulted at [facility] and active surveillance was recommended. She was diagnosed with Hodgkin's lymphoma after skin punch biopsy of a lesion on the right superior upper chest on 05/15/2016. PET-CT on 06/13/2016 showed stage IV. Patient received ABVD from 06/12/2016 - 12/04/2016. After 2 cycles, she had [place] 1 PET response, bleomycin was discontinued. After treatment patient has been on active surveillance. In early 02/2018, she developed mild night sweats and dry cough. Scans (CT & PET) showed hypermetabolic lymph nodes in the posterior mediastinum (Deauville scale 5) and hypermetabolic retroperitoneal and mesenteric lymph nodes (Deauville scale 5) (stage III). Patient underwent CT-guided biopsy of left retroperitoneal lymph node April 25, 2018 confirmed the diagnosis of classic Hodgkin's lymphoma. BMA/Bx negative for HD/FL. Patient completed 6 rounds of bendamustine and brentuximab for Hodgkin's lymphoma from 05/26/2018 through 10/21/2018. Patient underwent PET scan on 11/05/2018 showed a focus of increased focal radiotracer uptake within the posterior right pelvis anterior to the right common iliac artery and vein that is stable to comparison exam of 08/06/2018 with no convincing correlating soft tissue mass or enlarged lymph node on CT. Otherwise no convincing PET/CT evidence of hypermetabolic lymphadenopathy within the imaged neck, chest, abdomen, and pelvis. Interim Events: Due to prolonged leukopenia and thrombocytopenia, maintenance brentuximab has bee deferred. She presents today for scheduled follow up visit. Clinically, she has been making progress. No fever, no night sweats, no nausea and no vomiting. She is complaining of mild tingling of her hands and feet. No new lumps or bumps. recurrebt shingle on valc sttill fell not able to keep ballance. on alternative supplements abnormla liver fntion\ left face skin cancer resection would like to delay BV. - Patient Self-Reported Symptoms SR Constitution: Fever, Chills, Fatigue/Malaise, Night Sweats SR ears, nose, mouth, throat issues: Cough SR respiratory issues: Cough SR Cardiovascular issues: Palpitations SR Gastrointestinal issues: Change in bowel pattern SR Neuro issues: Numbness or tingling, Difficulty balancing SR Endocrine issues: Hot flashes - Additional ROS All systems PM: reviewed and no additional remarkable complaints except as stated Home Medications and Allergies Home Medications Medication Instructions Recorded Confirmed Type Probiotic 1 cap PO DAILY #0 07/04/12 01/01/19 History coQ10 (ubiquinol) 250 mg PO DAILY #0 07/04/12 01/01/19 History multivitamin 1 tab PO DAILY #0 07/04/12 01/01/19 History [place]-3 Fish Oil 1 cap PO DAILY 05/15/18 01/01/19 History Protandim 1 dose PO DAILY 05/15/18 01/01/19 History Vitamin D Liquid 1 dose TOPICAL DAILY 05/15/18 01/01/19 History ondansetron HCl [Zofran] 4 mg PO Q6-8H PRN #30 tab 05/27/18 01/01/19 Rx Quercitin 07/10/18 01/01/19 History mupirocin 2 % topical ointment 1 applic TOP BID #30 gram 08/11/18 10/31/18 Rx Emmanuel Preciado Drops 08/25/18 01/01/19 History Lymph Support 08/25/18 01/01/19 History Vadim Stress 08/25/18 01/01/19 History Respira Tone 08/25/18 01/01/19 History Thyroid Plus 08/25/18 01/01/19 History Whole Body Detox 08/25/18 01/01/19 History ascorbic acid (vitamin C) [Vitamin 1,000 mg PO DAILY 08/25/18 01/01/19 History C] turmeric (bulk) [Curcumin] DAILY 08/25/18 01/01/19 History Marcus 10/20/18 01/01/19 History Thymus 1,000 mg 10/20/18 01/01/19 History diltiazem HCl 180 mg 180 mg PO QPM #90 cap 12/30/18 01/01/19 Rx capsule,extended release 24 hr Allergies Allergy/AdvReac Type Severity Reaction Status Date / Time NSAIDS (Non-Steroidal Allergy Intermediate HIVES Verified 01/01/19 13:55 Anti-Inflamma [NSAIDS (NON-STEROIDAL ANTI-INFLAMMA] amoxicillin [AMOXICILLIN] Allergy Mild rash Verified 01/01/19 13:55 Exam Vital signs: Vital Signs Temp Pulse Resp BP Pulse Ox 01/05/19 11:52 97.8 F 68 16 124/70 97 Intake and Output 01/04/19 01/05/19 01/05/19 23:59 07:59 15:59 Other: Weight 51.6 kg Patient Weight 01/05/19 23:59 Weight 51.6 kg - Constitutional positive no acute distress, positive thin, positive chronically ill appearing, positive cooperative - Routine HEENT Exam Head: Present: normocephalic. Absent: atraumatic (left face surgery sutures noted. ) Eye: Present: EOMI, PERRL, normal accommodation. Absent: conjunctival icterus ENT: Present: mucous membranes moist - Routine Neck Exam Present: supple. Absent: lymphadenopathy, thyromegaly - Routine Chest/Breast/Axilla Exam Axillae: Absent: lymphadenopathy - Routine Respiratory Exam Present: Clear to auscultation bilaterally. Absent: wheezes - Routine Cardiovascular Exam Present: RRR, S1, S2. Absent: murmur, gallop, rubs - Routine Abdominal Exam Present: soft. Absent: tenderness, distended - Routine Neurological Exam Present: alert, oriented X3, CN II-XII intact. Absent: sensory deficit, motor deficit - Routine Psychiatric Exam Present: normal affect Results - Labs Laboratory Last Values WBC 3.8 X10^3/uL (4.5-11.0) L 01/05/19 11:10 RBC 3.85 X10^6/uL (4.0-5.2) L 01/05/19 11:10 Hgb 12.3 g/dL (12.0-16.0) 01/05/19 11:10 Hct 35.9 % (36-46) L 01/05/19 11:10 MCV 93.2 fL (80-100) 01/05/19 11:10 MCH 32.0 PG (26-34) 01/05/19 11:10 MCHC 34.3 % (30-36) 01/05/19 11:10 RDW 14.3 % (11.6-14.8) 01/05/19 11:10 Plt Count 116 X10^3/uL (150-400) L 01/05/19 11:10 Neut % (Auto) 58.8 % (50-75) 01/05/19 11:10 Lymph % (Auto) 23.9 % (25-40) L 01/05/19 11:10 [place] % (Auto) 14.1 % (3-14) H 01/05/19 11:10 Eos % (Auto) 2.4 % (2-4) 01/05/19 11:10 Baso % (Auto) 0.8 % (0-2) 01/05/19 11:10 Neut # (Auto) 2200 /uL (0756-3696) 01/05/19 11:10 Lymph # (Auto) 900 /uL (1846-0684) L 01/05/19 11:10 [place] # (Auto) 500 /uL (0-900) 01/05/19 11:10 Eos # (Auto) 100 /uL (0-450) 01/05/19 11:10 Baso # (Auto) 0 /uL (0-100) 01/05/19 11:10 Total Counted 50 11/10/18 08:40 Seg Neutrophils % 34.0 % (38-70) L 11/10/18 08:40 Band Neutrophils % 4.0 % (3-7) 11/10/18 08:40 Lymphocytes % (Manual) 24.0 % (25-45) L 11/10/18 08:40 Atypical Lymphs % 4.0 % (-0) H 11/10/18 08:40 Monocytes % (Manual) 32.0 % (2-11) H 11/10/18 08:40 Eosinophils % (Manual) 6.0 % (2-4) H 09/08/18 14:10 Basophils % (Manual) 2.0 % (0-1) H 11/10/18 08:40 Metamyelocytes % 1.0 % (-0) H 08/11/18 10:20 Neutrophils # (Manual) 684 /uL (5220-3461) L 11/10/18 08:40 Smudge Cells 1+ H 08/05/18 14:30 Dohle Bodies 1+ H 08/11/18 10:20 Platelet Estimate Decreased on smear 08/11/18 10:20 Plt Morphology Comment 08/11/18 10:20 RBC Morphology Normal morphology 11/10/18 08:40 Hypochromasia 1+ H 07/28/18 11:02 Poikilocytosis 1+ H 08/05/18 14:30 Anisocytosis 1+ H 09/08/18 14:10 Microcytosis 1+ H 07/09/18 09:40 Ovalocytes 1+ H 07/28/18 11:02 ESR 83 MM/HR (0-20) H 05/22/18 08:36 PT 14.2 SECONDS (10.1-12.7) H 04/24/18 14:15 INR 1.2 (0.9-1.3) 04/24/18 14:15 Sodium 138 mmol/L (137-145) 01/05/19 11:10 Potassium 4.9 mmol/L (3.4-5.1) 01/05/19 11:10 Chloride 104 mmol/L (98-107) 01/05/19 11:10 Carbon Dioxide 29 mmol/L (22-32) 01/05/19 11:10 BUN 19 mg/dL (7-17) H 01/05/19 11:10 Creatinine 0.60 mg/dL (0.52-1.04) 01/05/19 11:10 Estimated GFR > 60.0 mL/min (>60) 01/05/19 11:10 BUN/Creatinine Ratio 31.7 (6-22) H 01/05/19 11:10 Glucose 88 mg/dL (80-110) 01/05/19 11:10 Calcium 9.2 mg/dL (8.4-10.2) 01/05/19 11:10 Total Bilirubin 1.0 mg/dL (0.2-1.3) 01/05/19 11:10 AST 71 IU/L (14-36) H 01/05/19 11:10 ALT 35 IU/L (9-52) 01/05/19 11:10 Alkaline Phosphatase 78 U/L (38-126) 01/05/19 11:10 Lactate Dehydrogenase 630 U/L (313-618) H 12/08/18 10:20 Total Protein 7.2 g/dL (6.3-8.2) 01/05/19 11:10 Albumin 4.5 g/dL (3.5-5.0) 01/05/19 11:10 Globulin 2.7 g/dL (1.7-4.1) 01/05/19 11:10 Albumin/Globulin Ratio 1.7 (1.0-2.8) 01/05/19 11:10 Hep Bs Antigen Negative s/c (NEGATIVE) 05/15/18 14:32 Hep Bs Antibody Nonreactive (Nonreactive) 05/15/18 15:31 Hep B Core Total Ab Nonreactive (Nonreactive) 05/15/18 15:31 Hep B Core IgM Ab Nonreactive (Nonreactive) 05/15/18 15:31 Hepatitis C Antibody Negative s/c (NEGATIVE) 05/15/18 14:32 Assessment and Plan (1) Hodgkins lymphoma in relapse Overview: 1. Stage IV classical HD, diagnosed after skin punch biopsy of a lesion on the right superior upper chest on 05/15/2016. CT and PET scan staging showed extensive multiple superficial soft tissues of the skin and retroperitoneal lymphadenpathy (stage IV) 2. Patient received ABVD from 06/12/2016 through 12/04/2016. After 2 cycles, she had [place] 1 PET response, bleomycin was discontinued. 3. Relapsed in 02/2018, with B symptoms. Confirmed by CT guided retroperitoneal biopsy on 04/25/2018. PET showed above and below diaphragm involvement, with negative BMA/BX. Stage III. 4. Salvage Bendamustine/B-Vedotin x 6 cycles from 05/26/2018 to 10/21/2018. Assessment: Patient is unsteady decided about the maintenance therapy with brentuximab and vedotin pain. Patient is concerned about the potential side. I talked with her that we will bring her back in about month and we discussed the topic. Recommended that we can try immunotherapy. However said that she just had the shingles she just had the surgery of the FISH shows cancer. She would like to wait until next visit. Plan: 1. Continue to hold initiation of maintenance BV 2. Continue Valacyclovir 3. RTC in one month, CBC, CMP, LDH. (2) Follicular lymphoma Overview: Follicular lymphoma diagnosed by needle core biopsy of retroperitoneal lymph nodes on 12/27/2008 that showed atypical lymphoid infiltrate most consistent with follicular lymphoma. 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 FLIPI score was 2. She was consulted at [facility] and active surveillance was recommended. Until now there has been no evidence to suggest recurrence or transformation of her underlying follicular lymphoma. Assessment and Plan: No evidence of recurrence. The CT-guided biopsy of the retroperitoneal lymph node on April 25, 2018 showed no evidence of follicular lymphoma, but relapsed HD (see above)
[2019-02-09 09:50] VITALS: BP 97/65; PULSE 70; RESP 16; TEMP 36.6; O2SAT 99
[2019-02-09 09:51] LABS: Add Manual Diff / Slide Review NO; Basophils Absolute Auto 0 /uL (0-100); Basophils Percent Auto 0.7 % (0-2); Eosinophils Absolute Auto 100 /uL (0-450); Eosinophils Percent Auto 2.8 % (2-4); Lymphocytes Absolute Auto 800 /uL (1100-4500); Lymphocytes Percent Auto 25.8 % (25-40); Mean Corpuscular HGB Conc 33.4 % (30-36); Mean Corpuscular Hemoglobin 32.3 PG (26-34); Mean Corpuscular Volume 96.5 fL (80-100); Monocytes Absolute Auto 500 /uL (0-900); Neutrophils Absolute Auto 1700 /uL (1500-7000); Neutrophils Percent Auto 55.7 % (50-75); Platelet Count 106 X10^3/uL (150-400); Red Blood Cell Count 3.73 X10^6/uL (4.0-5.2); Red Cell Distribution Width 15.7 % (11.6-14.8); White Blood Cell Count 3.1 X10^3/uL (4.5-11.0)
[2019-02-09 10:03] LABS: Lactate Dehydrogenase 502 U/L (313-618)
[2019-02-09 10:04] LABS: Alanine Aminotransferase 29 IU/L (<35); Albumin 4.3 g/dL (3.5-5.0); Alkaline Phosphatase 85 U/L (38-126); Aspartate Aminotransferase 40 IU/L (14-36); BUN Creatinine Ratio 21.4 (6-22); Bilirubin Total 0.5 mg/dL (0.2-1.3); Blood Urea Nitrogen 15 mg/dL (7-17); Calcium 9.3 mg/dL (8.4-10.2); Carbon Dioxide 27 mmol/L (22-32); Chloride 106 mmol/L (98-107); Estimated Glomerular Filt Rate > 60.0 mL/min (>60); Globulin 2.1 g/dL (1.7-4.1); Glucose 81 mg/dL (80-110); HEMOLYSIS < 15 (0-50); Sodium 142 mmol/L (137-145); Total Protein 6.4 g/dL (6.3-8.2)
--- NOTE | 2019-02-09 10:06 | ONC.PN ---
PN -Subjective Interval history: ID/CC: 73-year-old female with history Hodgkin's lymphoma and low-grade follicular lymphoma now with relapsed HL on salvage chemotherapy. Oncology History She was diagnosed with follicular lymphoma after retroperitoneal lymph nodes needle biopsy on 12/27/2008. BMA/Bx on 12/24/2008 showed low level involvement by follicular lymphoma. She was consulted at [facility] and active surveillance was recommended. She was diagnosed with Hodgkin's lymphoma after skin punch biopsy of a lesion on the right superior upper chest on 05/15/2016. PET-CT on 06/13/2016 showed stage IV. Patient received ABVD from 06/12/2016 - 12/04/2016. After 2 cycles, she had [place] 1 PET response, bleomycin was discontinued. After treatment patient has been on active surveillance. In early 02/2018, she developed mild night sweats and dry cough. Scans (CT & PET) showed hypermetabolic lymph nodes in the posterior mediastinum ([place]au[place] scale 5) and hypermetabolic retroperitoneal and mesenteric lymph nodes (Deauville scale 5) (stage III). Patient underwent CT-guided biopsy of left retroperitoneal lymph node April 25, 2018 confirmed the diagnosis of classic Hodgkin's lymphoma. BMA/Bx negative for HD/FL. Patient completed 6 rounds of bendamustine and brentuximab for Hodgkin's lymphoma from 05/26/2018 through 10/21/2018. Patient underwent PET scan on 11/05/2018 showed a focus of increased focal radiotracer uptake within the posterior right pelvis anterior to the right common iliac artery and vein that is stable to comparison exam of 08/06/2018 with no convincing correlating soft tissue mass or enlarged lymph node on CT. Otherwise no convincing PET/CT evidence of hypermetabolic lymphadenopathy within the imaged neck, chest, abdomen, and pelvis. Interim Events: No night sweats. No fever. She is really watching out for symptoms. No red flag. A little shingles at the right upper quadrant. She called Dr. Jones's office. Her weight is stable. Up by one pound. No shortness of breath. No chest pain. No abdominal pain. [place] herself again. - Patient Self-Reported Symptoms SR Constitution: Fever, Chills, Fatigue/Malaise, Night Sweats SR ears, nose, mouth, throat issues: Cough SR respiratory issues: Cough SR Cardiovascular issues: Palpitations SR Gastrointestinal issues: Change in bowel pattern SR Neuro issues: Numbness or tingling, Difficulty balancing SR Endocrine issues: Hot flashes - Additional ROS All systems PM: reviewed and no additional remarkable complaints except as stated Home Medications and Allergies Home Medications Medication Instructions Recorded Confirmed Type Probiotic 1 cap PO DAILY #0 07/04/12 01/01/19 History coQ10 (ubiquinol) 250 mg PO DAILY #0 07/04/12 01/01/19 History multivitamin 1 tab PO DAILY #0 07/04/12 01/01/19 History [place]-3 Fish Oil 1 cap PO DAILY 05/15/18 01/01/19 History Protandim 1 dose PO DAILY 05/15/18 01/01/19 History Vitamin D Liquid 1 dose TOPICAL DAILY 05/15/18 01/01/19 History ondansetron HCl [Zofran] 4 mg PO Q6-8H PRN #30 tab 05/27/18 01/01/19 Rx Quercitin 07/10/18 01/01/19 History mupirocin 2 % topical ointment 1 applic TOP BID #30 gram 08/11/18 10/31/18 Rx Emmanuel Preciado Drops 08/25/18 01/01/19 History Lymph Support 08/25/18 01/01/19 History Vadim Stress 08/25/18 01/01/19 History Respira Tone 08/25/18 01/01/19 History Thyroid Plus 08/25/18 01/01/19 History Whole Body Detox 08/25/18 01/01/19 History ascorbic acid (vitamin C) [Vitamin 1,000 mg PO DAILY 08/25/18 01/01/19 History C] turmeric (bulk) [Curcumin] DAILY 08/25/18 01/01/19 History Marcus 10/20/18 01/01/19 History Thymus 1,000 mg 10/20/18 01/01/19 History diltiazem HCl 180 mg 180 mg PO QPM #90 cap 12/30/18 01/01/19 Rx capsule,extended release 24 hr valacyclovir 1 gram tablet 1,000 mg PO TID 7 Days #21 tab 01/19/19 Rx Allergies Allergy/AdvReac Type Severity Reaction Status Date / Time NSAIDS (Non-Steroidal Allergy Intermediate HIVES Verified 01/01/19 13:55 Anti-Inflamma [NSAIDS (NON-STEROIDAL ANTI-INFLAMMA] amoxicillin [AMOXICILLIN] Allergy Mild rash Verified 01/01/19 13:55 Exam Vital signs: Vital Signs Temp Pulse Resp BP Pulse Ox 02/09/19 09:50 97.9 F 70 16 97/65 99 Intake and Output 02/08/19 02/09/19 02/09/19 23:59 07:59 15:59 Other: Weight 52.1 kg Patient Weight 02/09/19 23:59 Weight 52.1 kg - Constitutional positive no acute distress, positive thin, positive cooperative - Routine HEENT Exam Head: Present: normocephalic, atraumatic Eye: Present: EOMI, PERRL, normal accommodation. Absent: conjunctival icterus ENT: Present: mucous membranes moist - Routine Neck Exam Present: supple. Absent: lymphadenopathy, thyromegaly - Routine Chest/Breast/Axilla Exam Axillae: Absent: lymphadenopathy - Routine Respiratory Exam Present: Clear to auscultation bilaterally. Absent: wheezes - Routine Cardiovascular Exam Present: RRR, S1, S2. Absent: murmur, gallop, rubs - Routine Abdominal Exam Present: soft. Absent: tenderness, distended, organomegaly - Routine Extremities Exam Absent: edema - Routine Neurological Exam Present: alert, oriented X3, CN II-XII intact. Absent: sensory deficit, motor deficit - Routine Psychiatric Exam Present: normal affect Results - Labs Laboratory Last Values WBC 3.1 X10^3/uL (4.5-11.0) L 02/09/19 09:40 RBC 3.73 X10^6/uL (4.0-5.2) L 02/09/19 09:40 Hgb 12.0 g/dL (12.0-16.0) 02/09/19 09:40 Hct 36.0 % (36-46) 02/09/19 09:40 MCV 96.5 fL (80-100) 02/09/19 09:40 MCH 32.3 PG (26-34) 02/09/19 09:40 MCHC 33.4 % (30-36) 02/09/19 09:40 RDW 15.7 % (11.6-14.8) H 02/09/19 09:40 Plt Count 106 X10^3/uL (150-400) L 02/09/19 09:40 Neut % (Auto) 55.7 % (50-75) 02/09/19 09:40 Lymph % (Auto) 25.8 % (25-40) 02/09/19 09:40 [place] % (Auto) 15.0 % (3-14) H 02/09/19 09:40 Eos % (Auto) 2.8 % (2-4) 02/09/19 09:40 Baso % (Auto) 0.7 % (0-2) 02/09/19 09:40 Neut # (Auto) 1700 /uL (5188-6802) 02/09/19 09:40 Lymph # (Auto) 800 /uL (0276-7055) L 02/09/19 09:40 [place] # (Auto) 500 /uL (0-900) 02/09/19 09:40 Eos # (Auto) 100 /uL (0-450) 02/09/19 09:40 Baso # (Auto) 0 /uL (0-100) 02/09/19 09:40 Total Counted 50 11/10/18 08:40 Seg Neutrophils % 34.0 % (38-70) L 11/10/18 08:40 Band Neutrophils % 4.0 % (3-7) 11/10/18 08:40 Lymphocytes % (Manual) 24.0 % (25-45) L 11/10/18 08:40 Atypical Lymphs % 4.0 % (-0) H 11/10/18 08:40 Monocytes % (Manual) 32.0 % (2-11) H 11/10/18 08:40 Eosinophils % (Manual) 6.0 % (2-4) H 09/08/18 14:10 Basophils % (Manual) 2.0 % (0-1) H 11/10/18 08:40 Metamyelocytes % 1.0 % (-0) H 08/11/18 10:20 Neutrophils # (Manual) 684 /uL (5324-1282) L 11/10/18 08:40 Smudge Cells 1+ H 08/05/18 14:30 Dohle Bodies 1+ H 08/11/18 10:20 Platelet Estimate Decreased on smear 08/11/18 10:20 Plt Morphology Comment 08/11/18 10:20 RBC Morphology Normal morphology 11/10/18 08:40 Hypochromasia 1+ H 07/28/18 11:02 Poikilocytosis 1+ H 08/05/18 14:30 Anisocytosis 1+ H 09/08/18 14:10 Microcytosis 1+ H 07/09/18 09:40 Ovalocytes 1+ H 07/28/18 11:02 ESR 83 MM/HR (0-20) H 05/22/18 08:36 PT 14.2 SECONDS (10.1-12.7) H 04/24/18 14:15 INR 1.2 (0.9-1.3) 04/24/18 14:15 Sodium 142 mmol/L (137-145) 02/09/19 09:40 Potassium 4.0 mmol/L (3.4-5.1) 02/09/19 09:40 Chloride 106 mmol/L (98-107) 02/09/19 09:40 Carbon Dioxide 27 mmol/L (22-32) 02/09/19 09:40 BUN 15 mg/dL (7-17) 02/09/19 09:40 Creatinine 0.70 mg/dL (0.52-1.04) 02/09/19 09:40 Estimated GFR > 60.0 mL/min (>60) 02/09/19 09:40 BUN/Creatinine Ratio 21.4 (6-22) 02/09/19 09:40 Glucose 81 mg/dL (80-110) 02/09/19 09:40 Calcium 9.3 mg/dL (8.4-10.2) 02/09/19 09:40 Total Bilirubin 0.5 mg/dL (0.2-1.3) 02/09/19 09:40 AST 40 IU/L (14-36) H 02/09/19 09:40 ALT 29 IU/L (<35) 02/09/19 09:40 Alkaline Phosphatase 85 U/L (38-126) 02/09/19 09:40 Lactate Dehydrogenase 502 U/L (313-618) 02/09/19 09:40 Total Protein 6.4 g/dL (6.3-8.2) 02/09/19 09:40 Albumin 4.3 g/dL (3.5-5.0) 02/09/19 09:40 Globulin 2.1 g/dL (1.7-4.1) 02/09/19 09:40 Albumin/Globulin Ratio 2.0 (1.0-2.8) 02/09/19 09:40 Hep Bs Antigen Negative s/c (NEGATIVE) 05/15/18 14:32 Hep Bs Antibody Nonreactive (Nonreactive) 05/15/18 15:31 Hep B Core Total Ab Nonreactive (Nonreactive) 05/15/18 15:31 Hep B Core IgM Ab Nonreactive (Nonreactive) 05/15/18 15:31 Hepatitis C Antibody Negative s/c (NEGATIVE) 05/15/18 14:32 Assessment and Plan (1) Hodgkins lymphoma in relapse Overview: 1. Stage IV classical HD, diagnosed after skin punch biopsy of a lesion on the right superior upper chest on 05/15/2016. CT and PET scan staging showed extensive multiple superficial soft tissues of the skin and retroperitoneal lymphadenpathy (stage IV) 2. Patient received ABVD from 06/12/2016 through 12/04/2016. After 2 cycles, she had [place] 1 PET response, bleomycin was discontinued. 3. Relapsed in 02/2018, with B symptoms. Confirmed by CT guided retroperitoneal biopsy on 04/25/2018. PET showed above and below diaphragm involvement, with negative BMA/BX. Stage III. 4. Salvage Bendamustine/B-Vedotin x 6 cycles from 05/26/2018 to 10/21/2018. Assessment: Clinically, she has been doing well. Tingling of the tips of her fingers have resolved. No B symptoms. The right sided singles have almost completely resolved. Plan: 1. Continue to hold initiation of maintenance BV 2. Continue Valacyclovir 3. RTC in one month, CBC, CMP, LDH. We discussed with the patient about maintenance therapy with immunotherapy. (2) Follicular lymphoma Overview: Follicular lymphoma diagnosed by needle core biopsy of retroperitoneal lymph nodes on 12/27/2008 that showed atypical lymphoid infiltrate most consistent with follicular lymphoma. 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 FLIPI score was 2. She was consulted at [facility] and active surveillance was recommended. Assessment: Until now there has been no evidence to suggest recurrence or transformation of her underlying follicular lymphoma.The CT-guided biopsy of the retroperitoneal lymph node on April 25, 2018 showed no evidence of follicular lymphoma, but relapsed HD (see above) Plan: Clinical active surveillance.
[2019-03-09 09:43] LABS: Add Manual Diff / Slide Review NO; Basophils Absolute Auto 0 /uL (0-100); Basophils Percent Auto 0.7 % (0-2); Eosinophils Absolute Auto 100 /uL (0-450); Hematocrit 36.8 % (36-46); Hemoglobin 12.4 g/dL (12.0-16.0); Lymphocytes Absolute Auto 1100 /uL (1100-4500); Lymphocytes Percent Auto 30.2 % (25-40); Mean Corpuscular HGB Conc 33.7 % (30-36); Mean Corpuscular Hemoglobin 32.3 PG (26-34); Mean Corpuscular Volume 95.7 fL (80-100); Monocytes Absolute Auto 500 /uL (0-900); Monocytes Percent Auto 13.3 % (3-14); Neutrophils Absolute Auto 1800 /uL (1500-7000); Neutrophils Percent Auto 51.8 % (50-75); Platelet Count 115 X10^3/uL (150-400); Red Blood Cell Count 3.85 X10^6/uL (4.0-5.2); Red Cell Distribution Width 15.1 % (11.6-14.8); White Blood Cell Count 3.5 X10^3/uL (4.5-11.0)
[2019-03-09 09:48] LABS: Alanine Aminotransferase 31 IU/L (<35); Albumin 4.3 g/dL (3.5-5.0); Albumin Globulin Ratio 1.9 (1.0-2.8); Alkaline Phosphatase 85 U/L (38-126); Aspartate Aminotransferase 39 IU/L (14-36); BUN Creatinine Ratio 22.9 (6-22); Bilirubin Total 0.4 mg/dL (0.2-1.3); Blood Urea Nitrogen 16 mg/dL (7-17); Calcium 9.4 mg/dL (8.4-10.2); Carbon Dioxide 28 mmol/L (22-32); Chloride 105 mmol/L (98-107); Estimated Glomerular Filt Rate > 60.0 mL/min (>60); Globulin 2.3 g/dL (1.7-4.1); Glucose 83 mg/dL (80-110); HEMOLYSIS < 15 (0-50); Potassium 4.1 mmol/L (3.4-5.1); Sodium 142 mmol/L (137-145); Total Protein 6.6 g/dL (6.3-8.2)
[2019-03-09 10:13] VITALS: BP 112/74; PULSE 68; RESP 16; TEMP 36.2; O2SAT 98
[2019-03-09 10:13] LABS: Lactate Dehydrogenase 537 U/L (313-618)
--- NOTE | 2019-03-09 10:20 | P.PNONC_ITS ---
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 Oncology History She was diagnosed with follicular lymphoma after retroperitoneal lymph node needle biopsy on 12/27/2008. BMA/Bx on 12/24/2008 showed low level involvement by follicular lymphoma. She was consulted at [facility] and active surveillance was recommended. She was diagnosed with Hodgkin's lymphoma after skin punch biopsy of a lesion on the right superior upper chest on 05/15/2016. PET-CT on 06/13/2016 showed stage IV. Patient received ABVD from 06/12/2016 - 12/04/2016. After 2 cycles, she had [place] 1 PET response, bleomycin was discontinued. After treatment, patient has been on active surveillance. In early 02/2018, she developed mild night sweats and dry cough. Scans (CT & PET) showed hypermetabolic lymph nodes in the posterior mediastinum (Deau[place] scale 5) and hypermetabolic retroperitoneal and mesenteric lymph nodes ([place] scale 5) (stage III). Patient underwent CT-guided biopsy of left retroperitoneal lymph node on 04/25/2018 that confirmed the diagnosis of classic Hodgkin's lymphoma. BMA/Bx negative for HD/FL. Patient completed 6 rounds of bendamustine and brentuximab for Hodgkin's lymphoma from 05/26/2018 through 10/21/2018. Patient underwent PET scan on 11/05/2018 showed a focus of increased focal radiotracer uptake within the posterior right pelvis anterior to the right common iliac artery and vein that is stable to comparison exam of 08/06/2018 with no convincing correlating soft tissue mass or enlarged lymph node on CT. Otherwise no convincing PET/CT evidence of hypermetabolic lymphadenopathy within the imaged neck, chest, abdomen, and pelvis. Interim Events: She presents today with her friend. She first said that her neuropathy has resolved. She has no problem with walking. Her energy level is fine. She does not have any B symptoms. Her weight has been stable. - Patient Self-Reported Symptoms SR Constitution: Fever, Chills, Fatigue/Malaise, Night Sweats SR ears, nose, mouth, throat issues: Cough SR respiratory issues: Cough SR Cardiovascular issues: Palpitations SR Gastrointestinal issues: Change in bowel pattern SR Neuro issues: Numbness or tingling, Difficulty balancing SR Endocrine issues: Hot flashes - Additional ROS All systems PM: reviewed and no additional remarkable complaints except as stated Home Medications and Allergies Home Medications Medication Instructions Recorded Confirmed Type Probiotic 1 cap PO DAILY #0 07/04/12 01/01/19 History coQ10 (ubiquinol) 250 mg PO DAILY #0 07/04/12 01/01/19 History multivitamin 1 tab PO DAILY #0 07/04/12 01/01/19 History [place]-3 Fish Oil 1 cap PO DAILY 05/15/18 01/01/19 History Protandim 1 dose PO DAILY 05/15/18 01/01/19 History Vitamin D Liquid 1 dose TOPICAL DAILY 05/15/18 01/01/19 History ondansetron HCl [Zofran] 4 mg PO Q6-8H PRN #30 tab 05/27/18 01/01/19 Rx Quercitin 07/10/18 01/01/19 History mupirocin 2 % topical ointment 1 applic TOP BID #30 gram 08/11/18 10/31/18 Rx Emmanuel Preciado Drops 08/25/18 01/01/19 History Lymph Support 08/25/18 01/01/19 History Vadim Stress 08/25/18 01/01/19 History Respira Tone 08/25/18 01/01/19 History Thyroid Plus 08/25/18 01/01/19 History Whole Body Detox 08/25/18 01/01/19 History ascorbic acid (vitamin C) [Vitamin 1,000 mg PO DAILY 08/25/18 01/01/19 History C] turmeric (bulk) [Curcumin] DAILY 08/25/18 01/01/19 History Marcus 10/20/18 01/01/19 History Thymus 1,000 mg 10/20/18 01/01/19 History diltiazem HCl 180 mg 180 mg PO QPM #90 cap 12/30/18 01/01/19 Rx capsule,extended release 24 hr valacyclovir 1 gram tablet 1,000 mg PO TID 7 Days #21 tab 01/19/19 Rx Allergies Allergy/AdvReac Type Severity Reaction Status Date / Time NSAIDS (Non-Steroidal Allergy Intermediate HIVES Verified 01/01/19 13:55 Anti-Inflamma [NSAIDS (NON-STEROIDAL ANTI-INFLAMMA] amoxicillin [AMOXICILLIN] Allergy Mild rash Verified 01/01/19 13:55 Exam Vital signs: Vital Signs Temp Pulse Resp BP Pulse Ox 03/09/19 10:13 97.2 F L 68 16 112/74 98 Intake and Output 03/08/19 03/09/19 03/09/19 23:59 07:59 15:59 Other: Weight 52.1 kg 52.6 kg Patient Weight 03/09/19 23:59 Weight 52.6 kg - Constitutional positive no acute distress, positive average body habitus, positive cooperative - Routine HEENT Exam Head: Present: normocephalic, atraumatic Eye: Present: EOMI, PERRL, normal accommodation. Absent: conjunctival icterus ENT: Present: mucous membranes moist - Routine Neck Exam Present: supple. Absent: lymphadenopathy, thyromegaly - Routine Chest/Breast/Axilla Exam Axillae: Absent: lymphadenopathy - Routine Respiratory Exam Present: Clear to auscultation bilaterally. Absent: accessory muscle use, respiratory distress, wheezes, crackles - Routine Cardiovascular Exam Present: RRR, S1, S2. Absent: murmur, gallop, rubs - Routine Abdominal Exam Present: soft. Absent: tenderness, distended, organomegaly, mass - Routine Extremities Exam Absent: edema - Routine Neurological Exam Present: alert, oriented X3, CN II-XII intact, normal reflexes, normal tone, normal speech. Absent: sensory deficit, motor deficit Results - Labs Laboratory Last Values WBC 3.5 X10^3/uL (4.5-11.0) L 03/09/19 09:30 RBC 3.85 X10^6/uL (4.0-5.2) L 03/09/19 09:30 Hgb 12.4 g/dL (12.0-16.0) 03/09/19 09:30 Hct 36.8 % (36-46) 03/09/19 09:30 MCV 95.7 fL (80-100) 03/09/19 09:30 MCH 32.3 PG (26-34) 03/09/19 09:30 MCHC 33.7 % (30-36) 03/09/19 09:30 RDW 15.1 % (11.6-14.8) H 03/09/19 09:30 Plt Count 115 X10^3/uL (150-400) L 03/09/19 09:30 Neut % (Auto) 51.8 % (50-75) 03/09/19 09:30 Lymph % (Auto) 30.2 % (25-40) 03/09/19 09:30 [place] % (Auto) 13.3 % (3-14) 03/09/19 09:30 Eos % (Auto) 4.0 % (2-4) 03/09/19 09:30 Baso % (Auto) 0.7 % (0-2) 03/09/19 09:30 Neut # (Auto) 1800 /uL (4426-0113) 03/09/19 09:30 Lymph # (Auto) 1100 /uL (6162-6446) 03/09/19 09:30 [place] # (Auto) 500 /uL (0-900) 03/09/19 09:30 Eos # (Auto) 100 /uL (0-450) 03/09/19 09:30 Baso # (Auto) 0 /uL (0-100) 03/09/19 09:30 Total Counted 50 11/10/18 08:40 Seg Neutrophils % 34.0 % (38-70) L 11/10/18 08:40 Band Neutrophils % 4.0 % (3-7) 11/10/18 08:40 Lymphocytes % (Manual) 24.0 % (25-45) L 11/10/18 08:40 Atypical Lymphs % 4.0 % (-0) H 11/10/18 08:40 Monocytes % (Manual) 32.0 % (2-11) H 11/10/18 08:40 Eosinophils % (Manual) 6.0 % (2-4) H 09/08/18 14:10 Basophils % (Manual) 2.0 % (0-1) H 11/10/18 08:40 Metamyelocytes % 1.0 % (-0) H 08/11/18 10:20 Neutrophils # (Manual) 684 /uL (6382-5600) L 11/10/18 08:40 Smudge Cells 1+ H 08/05/18 14:30 Dohle Bodies 1+ H 08/11/18 10:20 Platelet Estimate Decreased on smear 08/11/18 10:20 Plt Morphology Comment 08/11/18 10:20 RBC Morphology Normal morphology 11/10/18 08:40 Hypochromasia 1+ H 07/28/18 11:02 Poikilocytosis 1+ H 08/05/18 14:30 Anisocytosis 1+ H 09/08/18 14:10 Microcytosis 1+ H 07/09/18 09:40 Ovalocytes 1+ H 07/28/18 11:02 ESR 83 MM/HR (0-20) H 05/22/18 08:36 PT 14.2 SECONDS (10.1-12.7) H 04/24/18 14:15 INR 1.2 (0.9-1.3) 04/24/18 14:15 Sodium 142 mmol/L (137-145) 03/09/19 09:30 Potassium 4.1 mmol/L (3.4-5.1) 03/09/19 09:30 Chloride 105 mmol/L (98-107) 03/09/19 09:30 Carbon Dioxide 28 mmol/L (22-32) 03/09/19 09:30 BUN 16 mg/dL (7-17) 03/09/19 09:30 Creatinine 0.70 mg/dL (0.52-1.04) 03/09/19 09:30 Estimated GFR > 60.0 mL/min (>60) 03/09/19 09:30 BUN/Creatinine Ratio 22.9 (6-22) H 03/09/19 09:30 Glucose 83 mg/dL (80-110) 03/09/19 09:30 Calcium 9.4 mg/dL (8.4-10.2) 03/09/19 09:30 Total Bilirubin 0.4 mg/dL (0.2-1.3) 03/09/19 09:30 AST 39 IU/L (14-36) H 03/09/19 09:30 ALT 31 IU/L (<35) 03/09/19 09:30 Alkaline Phosphatase 85 U/L (38-126) 03/09/19 09:30 Lactate Dehydrogenase 537 U/L (313-618) 03/09/19 09:30 Total Protein 6.6 g/dL (6.3-8.2) 03/09/19 09:30 Albumin 4.3 g/dL (3.5-5.0) 03/09/19 09:30 Globulin 2.3 g/dL (1.7-4.1) 03/09/19 09:30 Albumin/Globulin Ratio 1.9 (1.0-2.8) 03/09/19 09:30 Hep Bs Antigen Negative s/c (NEGATIVE) 05/15/18 14:32 Hep Bs Antibody Nonreactive (Nonreactive) 05/15/18 15:31 Hep B Core Total Ab Nonreactive (Nonreactive) 05/15/18 15:31 Hep B Core IgM Ab Nonreactive (Nonreactive) 05/15/18 15:31 Hepatitis C Antibody Negative s/c (NEGATIVE) 05/15/18 14:32 Assessment and Plan (1) Hodgkins lymphoma in relapse Overview: 1. Stage IV classical HD, diagnosed after skin punch biopsy of a lesion on the right superior upper chest on 05/15/2016. CT and PET scan staging showed extensive multiple superficial soft tissues of the skin and retroperitoneal lymphadenpathy (stage IV) 2. Patient received ABVD from 06/12/2016 through 12/04/2016. After 2 cycles, she had [place] 1 PET response, bleomycin was discontinued. 3. Relapsed in 02/2018, with B symptoms. Confirmed by CT guided retroperitoneal biopsy on 04/25/2018. PET showed above and below diaphragm involvement, with negative BMA/BX. Stage III. 4. Salvage Bendamustine/B-Vedotin x 6 cycles from 05/26/2018 to 10/21/2018. Assessment: Clinically, she has been doing well. Tingling of the tips of her fingers have resolved. No B symptoms. The right sided singles have almost completely resolved. I discussed with her and friend that she might not be a good candidate for maintenance Brentuximab due to the tendency to develop neuropathy in her. I would agree with Dr. Ayad Haider from [facility] that use of immunotheray, i.e. PD-1 check-point inhibitor would be better tolerated. I told the patient that we will monitor her closely. If there is any sign of progression, I would start immunotherapy. She voiced understanding. Plan: 1. Continue to hold initiation of maintenance BV 2. Continue Valacyclovir 3. RTC in two months, CBC, CMP, LDH and B2M. (2) Follicular lymphoma Overview: Follicular lymphoma diagnosed by needle core biopsy of retroperitoneal lymph nodes on 12/27/2008 that showed atypical lymphoid infiltrate most consistent with follicular lymphoma. 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 FLIPI score was 2. She was consulted at [facility] and active surveillance was recommended. Assessment: Until now there has been no evidence to suggest recurrence or transformation of her underlying follicular lymphoma.The CT-guided biopsy of the retroperitoneal lymph node on April 25, 2018 showed no evidence of follicular lymphoma, but relapsed HD (see above) Plan: Clinical active surveillance.
[2019-03-13 09:03] LABS: Beta-2-Microglobulin 3.73 mg/L (< 2.52)
--- NOTE | 2019-05-07 16:01 | ONC.SCHED ---
Called Patient on 05/06/19 to let her know that we need current insurance for March, as [employer] is inactive when I tried to verified it on [id number]. I left patient a VM to call us back with the correct information before her apt on 05/11/19
--- NOTE | 2019-05-11 12:36 | ONC.PN ---
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 Oncology History She was diagnosed with follicular lymphoma after retroperitoneal lymph node needle biopsy on 12/27/2008. BMA/Bx on 12/24/2008 showed low level involvement by follicular lymphoma. She was consulted at [facility] and active surveillance was recommended. She was diagnosed with Hodgkin's lymphoma after skin punch biopsy of a lesion on the right superior upper chest on 05/15/2016. PET-CT on 06/13/2016 showed stage IV. Patient received ABVD from 06/12/2016 - 12/04/2016. After 2 cycles, she had [place] 1 PET response, bleomycin was discontinued. After treatment, patient has been on active surveillance. In early 02/2018, she developed mild night sweats and dry cough. Scans (CT & PET) showed hypermetabolic lymph nodes in the posterior mediastinum (Deauville scale 5) and hypermetabolic retroperitoneal and mesenteric lymph nodes (Deauville scale 5) (stage III). Patient underwent CT-guided biopsy of left retroperitoneal lymph node on 04/25/2018 that confirmed the diagnosis of classic Hodgkin's lymphoma. BMA/Bx negative for HD/FL. Patient completed 6 rounds of bendamustine and brentuximab for Hodgkin's lymphoma from 05/26/2018 through 10/21/2018. Patient underwent PET scan on 11/05/2018 showed a focus of increased focal radiotracer uptake within the posterior right pelvis anterior to the right common iliac artery and vein that is stable to comparison exam of 08/06/2018 with no convincing correlating soft tissue mass or enlarged lymph node on CT. Otherwise no convincing PET/CT evidence of hypermetabolic lymphadenopathy within the imaged neck, chest, abdomen, and pelvis. Interim Events: Patient presents here today for scheduled follow-up visit. She said ?I have nothing to report?. She reports good energy good appetite she has been active. She is walking every day mostly outside. She has a stable weight. - Patient Self-Reported Symptoms SR Constitution: Fever, Chills, Fatigue/Malaise, Night Sweats SR ears, nose, mouth, throat issues: Cough SR respiratory issues: Cough SR Cardiovascular issues: Palpitations SR Gastrointestinal issues: Change in bowel pattern SR Neuro issues: Numbness or tingling, Difficulty balancing SR Endocrine issues: Hot flashes - Additional ROS All systems PM: reviewed and no additional remarkable complaints except as stated Home Medications and Allergies Home Medications Medication Instructions Recorded Confirmed Type Probiotic 1 cap PO DAILY #0 07/04/12 05/11/19 History coQ10 (ubiquinol) 250 mg PO DAILY #0 07/04/12 05/11/19 History multivitamin 1 tab PO DAILY #0 07/04/12 05/11/19 History [place]-3 Fish Oil 1 cap PO DAILY 05/15/18 05/11/19 History Protandim 1 dose PO DAILY 05/15/18 05/11/19 History Vitamin D Liquid 1 dose TOPICAL DAILY 05/15/18 05/11/19 History Quercitin 1 tab DAILY 07/10/18 05/11/19 History mupirocin 2 % topical ointment 1 applic TOP BID #30 gram 08/11/18 05/11/19 Rx Emmanuel Preciado Drops 1 tab DAILY 08/25/18 05/11/19 History Lymph Support 1 tab DAILY 08/25/18 05/11/19 History Vadim Stress 1 tab DAILY 08/25/18 05/11/19 History Respira Tone 1 tab DAILY 08/25/18 05/11/19 History Thyroid Plus 1 tab DAILY 08/25/18 05/11/19 History Whole Body Detox 1 tab DAILY 08/25/18 05/11/19 History ascorbic acid (vitamin C) [Vitamin 1,000 mg PO DAILY 08/25/18 05/11/19 History C] turmeric (bulk) [Curcumin] 1 % DAILY 08/25/18 05/11/19 History Marcus 1 tab DAILY 10/20/18 05/11/19 History Thymus 1,000 mg DAILY 10/20/18 05/11/19 History diltiazem HCl 180 mg 180 mg PO QPM #90 cap 12/30/18 05/11/19 Rx capsule,extended release 24 hr Allergies Allergy/AdvReac Type Severity Reaction Status Date / Time NSAIDS (Non-Steroidal Allergy Intermediate HIVES Verified 04/15/19 13:57 Anti-Inflamma [NSAIDS (NON-STEROIDAL ANTI-INFLAMMA] amoxicillin [AMOXICILLIN] Allergy Mild rash Verified 04/15/19 13:57 Exam Vital signs: 05/11/19 13:26 Last Vital Signs Temp 98.3 F 05/11/19 12:53 Pulse 68 05/11/19 12:53 Resp 18 05/11/19 12:53 BP 135/66 05/11/19 12:53 Pulse Ox 99 05/11/19 12:53 Narrative: Gen: WDWN, NAD, pleasant and cooperative. HEENT: NCAT, EOMI, PERRLA, anicteric sclera. Neck: Supple, No palpable thyromegaly or lymphadenopathy. Respiratory: CTAB, no wheezes audible. No JVD Cardiovascular: RRR, S1 and S2 normal, no M/G/R. Abdomen: Soft, NTND, BS normal, no palpable organomegaly Extremities: No LE pitting edema. Lymphatic: no palpable lymph nodes in the neck, axillae, or groins. Neurological: AOx3, CN II-XII grossly intact. No focal motor or sensory deficit. Psychiatric: Good affect; no depression, no anxiety. Results - Labs Laboratory Last Values WBC 3.5 X10^3/uL (4.5-11.0) L 03/09/19 09:30 RBC 3.85 X10^6/uL (4.0-5.2) L 03/09/19 09:30 Hgb 12.4 g/dL (12.0-16.0) 03/09/19 09:30 Hct 36.8 % (36-46) 03/09/19 09:30 MCV 95.7 fL (80-100) 03/09/19 09:30 MCH 32.3 PG (26-34) 03/09/19 09:30 MCHC 33.7 % (30-36) 03/09/19 09:30 RDW 15.1 % (11.6-14.8) H 03/09/19 09:30 Plt Count 115 X10^3/uL (150-400) L 03/09/19 09:30 Neut % (Auto) 51.8 % (50-75) 03/09/19 09:30 Lymph % (Auto) 30.2 % (25-40) 03/09/19 09:30 Brisco[place] % (Auto) 13.3 % (3-14) 03/09/19 09:30 Eos % (Auto) 4.0 % (2-4) 03/09/19 09:30 Baso % (Auto) 0.7 % (0-2) 03/09/19 09:30 Neut # (Auto) 1800 /uL (8243-1096) 03/09/19 09:30 Lymph # (Auto) 1100 /uL (7825-6797) 03/09/19 09:30 [place] # (Auto) 500 /uL (0-900) 03/09/19 09:30 Eos # (Auto) 100 /uL (0-450) 03/09/19 09:30 Baso # (Auto) 0 /uL (0-100) 03/09/19 09:30 Total Counted 50 11/10/18 08:40 Seg Neutrophils % 34.0 % (38-70) L 11/10/18 08:40 Band Neutrophils % 4.0 % (3-7) 11/10/18 08:40 Lymphocytes % (Manual) 24.0 % (25-45) L 11/10/18 08:40 Atypical Lymphs % 4.0 % (-0) H 11/10/18 08:40 Monocytes % (Manual) 32.0 % (2-11) H 11/10/18 08:40 Eosinophils % (Manual) 6.0 % (2-4) H 09/08/18 14:10 Basophils % (Manual) 2.0 % (0-1) H 11/10/18 08:40 Metamyelocytes % 1.0 % (-0) H 08/11/18 10:20 Neutrophils # (Manual) 684 /uL (6922-0228) L 11/10/18 08:40 Smudge Cells 1+ H 08/05/18 14:30 Dohle Bodies 1+ H 08/11/18 10:20 Platelet Estimate Decreased on smear 08/11/18 10:20 Plt Morphology Comment 08/11/18 10:20 RBC Morphology Normal morphology 11/10/18 08:40 Hypochromasia 1+ H 07/28/18 11:02 Poikilocytosis 1+ H 08/05/18 14:30 Anisocytosis 1+ H 09/08/18 14:10 Microcytosis 1+ H 07/09/18 09:40 Ovalocytes 1+ H 07/28/18 11:02 ESR 83 MM/HR (0-20) H 05/22/18 08:36 PT 14.2 SECONDS (10.1-12.7) H 01/31/19 14:15 INR 1.2 (0.9-1.3) 04/24/18 14:15 Sodium 142 mmol/L (137-145) 03/09/19 09:30 Potassium 4.1 mmol/L (3.4-5.1) 03/09/19 09:30 Chloride 105 mmol/L (98-107) 03/09/19 09:30 Carbon Dioxide 28 mmol/L (22-32) 03/09/19 09:30 BUN 16 mg/dL (7-17) 03/09/19 09:30 Creatinine 0.70 mg/dL (0.52-1.04) 03/09/19 09:30 Estimated GFR > 60.0 mL/min (>60) 03/09/19 09:30 BUN/Creatinine Ratio 22.9 (6-22) H 03/09/19 09:30 Glucose 83 mg/dL (80-110) 03/09/19 09:30 Calcium 9.4 mg/dL (8.4-10.2) 03/09/19 09:30 Total Bilirubin 0.4 mg/dL (0.2-1.3) 03/09/19 09:30 AST 39 IU/L (14-36) H 03/09/19 09:30 ALT 31 IU/L (<35) 03/09/19 09:30 Alkaline Phosphatase 85 U/L (38-126) 03/09/19 09:30 Lactate Dehydrogenase 537 U/L (313-618) 03/09/19 09:30 Total Protein 6.6 g/dL (6.3-8.2) 03/09/19 09:30 Albumin 4.3 g/dL (3.5-5.0) 03/09/19 09:30 Globulin 2.3 g/dL (1.7-4.1) 03/09/19 09:30 Albumin/Globulin Ratio 1.9 (1.0-2.8) 03/09/19 09:30 Dcta-1-Ksssjqtjvgqkj 3.73 mg/L (< 2.52) H 03/09/19 09:30 Hep Bs Antigen Negative s/c (NEGATIVE) 05/15/18 14:32 Hep Bs Antibody Nonreactive (Nonreactive) 05/15/18 15:31 Hep B Core Total Ab Nonreactive (Nonreactive) 05/15/18 15:31 Hep B Core IgM Ab Nonreactive (Nonreactive) 05/15/18 15:31 Hepatitis C Antibody Negative s/c (NEGATIVE) 05/15/18 14:32 Assessment and Plan (1) Hodgkins lymphoma in relapse Overview: 1. Stage IV classical HD, diagnosed after skin punch biopsy of a lesion on the right superior upper chest on 05/15/2016. CT and PET scan staging showed extensive multiple superficial soft tissues of the skin and retroperitoneal lymphadenpathy (stage IV) 2. Patient received ABVD from 06/12/2016 through 12/04/2016. After 2 cycles, she had [place] 1 PET response, bleomycin was discontinued. 3. Relapsed in 02/2018, with B symptoms. Confirmed by CT guided retroperitoneal biopsy on 04/25/2018. PET showed above and below diaphragm involvement, with negative BMA/BX. Stage III. 4. Salvage Bendamustine/B-Vedotin x 6 cycles from 05/26/2018 to 10/21/2018. Assessment: Clinically I think she has been doing very well. No signs to suggest disease recurrence or metastasis. The laboratory tests are also within the normal range. I talked with her that I will continue current active surveillance. If there is any sign of recurrence or metastasis, we will proceed with restaging studies. We will consider immunotherapy. Plan: 1. Continue to hold initiation of maintenance BV 2. Continue Valacyclovir 3. RTC in six months, CBC, CMP, LDH and B2M. (2) Follicular lymphoma Overview: Follicular lymphoma diagnosed by needle core biopsy of retroperitoneal lymph nodes on 12/27/2008 that showed atypical lymphoid infiltrate most consistent with follicular lymphoma. 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 FLIPI score was 2. She was consulted at [facility] and active surveillance was recommended. Assessment: Until now there has been no evidence to suggest recurrence or transformation of her underlying follicular lymphoma. The CT-guided biopsy of the retroperitoneal lymph node on April 25, 2018 showed no evidence of follicular lymphoma, but relapsed HD (see above) Plan: Clinical active surveillance.
[2019-05-11 12:53] VITALS: BP 135/66; PULSE 68; RESP 18; TEMP 36.8; O2SAT 99
[2019-05-11 12:53] LABS: Add Manual Diff / Slide Review NO; Basophils Absolute Auto 100 /uL (0-100); Basophils Percent Auto 1.6 % (0-2); Eosinophils Absolute Auto 100 /uL (0-450); Eosinophils Percent Auto 1.6 % (2-4); Hematocrit 37.6 % (36-46); Hemoglobin 12.7 g/dL (12.0-16.0); Lymphocytes Absolute Auto 1800 /uL (1100-4500); Lymphocytes Percent Auto 35.3 % (25-40); Mean Corpuscular HGB Conc 33.7 % (30-36); Mean Corpuscular Hemoglobin 31.8 PG (26-34); Mean Corpuscular Volume 94.4 fL (80-100); Monocytes Absolute Auto 700 /uL (0-900); Neutrophils Absolute Auto 2500 /uL (1500-7000); Neutrophils Percent Auto 47.5 % (50-75); Platelet Count 130 X10^3/uL (150-400); Red Blood Cell Count 3.98 X10^6/uL (4.0-5.2); White Blood Cell Count 5.2 X10^3/uL (4.5-11.0)
[2019-05-11 13:08] LABS: Alanine Aminotransferase 38 IU/L (<35); Albumin 4.6 g/dL (3.5-5.0); Albumin Globulin Ratio 1.7 (1.0-2.8); Alkaline Phosphatase 99 U/L (38-126); Aspartate Aminotransferase 43 IU/L (14-36); BUN Creatinine Ratio 28.3 (6-22); Bilirubin Total 0.3 mg/dL (0.2-1.3); Blood Urea Nitrogen 17 mg/dL (7-17); Calcium 9.6 mg/dL (8.4-10.2); Carbon Dioxide 27 mmol/L (22-32); Chloride 105 mmol/L (98-107); Estimated Glomerular Filt Rate > 60.0 mL/min (>60); Globulin 2.7 g/dL (1.7-4.1); Glucose 101 mg/dL (80-110); HEMOLYSIS < 15 (0-50); Lactate Dehydrogenase 573 U/L (313-618); Potassium 4.4 mmol/L (3.4-5.1); Sodium 139 mmol/L (137-145); Total Protein 7.3 g/dL (6.3-8.2)
[2019-05-13 14:46] LABS: Beta-2-Microglobulin 3.61 mg/L (< 2.52)
[2019-08-03] MEDS: ALTEPLASE 2 MG/2 ML VIAL IV (13:37)
[2019-09-14 13:35] LABS: Add Manual Diff / Slide Review NO; Basophils Absolute Auto 0 /uL (0-100); Basophils Percent Auto 0.8 % (0-2); Eosinophils Absolute Auto 100 /uL (0-450); Eosinophils Percent Auto 1.3 % (2-4); Hematocrit 36.4 % (36-46); Hemoglobin 12.4 g/dL (12.0-16.0); Lymphocytes Absolute Auto 1700 /uL (1100-4500); Lymphocytes Percent Auto 33.7 % (25-40); Mean Corpuscular HGB Conc 33.9 % (30-36); Mean Corpuscular Hemoglobin 31.5 PG (26-34); Monocytes Absolute Auto 600 /uL (0-900); Monocytes Percent Auto 12.1 % (3-14); Neutrophils Absolute Auto 2600 /uL (1500-7000); Neutrophils Percent Auto 52.1 % (50-75); Platelet Count 144 X10^3/uL (150-400); Red Blood Cell Count 3.92 X10^6/uL (4.0-5.2); Red Cell Distribution Width 13.6 % (11.6-14.8); White Blood Cell Count 5.1 X10^3/uL (4.5-11.0)
[2019-09-14 13:49] LABS: Alanine Aminotransferase 26 IU/L (<35); Albumin Globulin Ratio 1.5 (1.0-2.8); Alkaline Phosphatase 91 U/L (38-126); Aspartate Aminotransferase 37 IU/L (14-36); BUN Creatinine Ratio 31.1 (6-22); Bilirubin Total 0.4 mg/dL (0.2-1.3); Blood Urea Nitrogen 19 mg/dL (7-17); Calcium 9.2 mg/dL (8.4-10.2); Carbon Dioxide 30 mmol/L (22-32); Chloride 104 mmol/L (98-107); Estimated Glomerular Filt Rate > 60.0 mL/min (>60); Globulin 2.6 g/dL (1.7-4.1); Glucose 107 mg/dL (80-110); HEMOLYSIS < 15 (0-50); Lactate Dehydrogenase 552 U/L (313-618); Sodium 138 mmol/L (137-145); Total Protein 6.6 g/dL (6.3-8.2)
[2019-09-15 13:47] VITALS: BP 115/75; PULSE 87; RESP 16; TEMP 37.7; O2SAT 97
--- NOTE | 2019-09-15 14:20 | P.PNONC_ITS ---
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 Oncology History Ms. Arredondo presents today for follow-up of her lymphoma. Tomorrow she will be 74 years old. She received presented in December of 2008 with retroperitoneal lymphadenopathy. Biopsy showed follicular lymphoma. Bone marrow showed low- level involvement. She was seen by Dr. Seth Baker at that time and also by Dr. Lillie Mays at the [facility]. Observation was recommended. In April of 2016 she developed multiple raised, red, tender skin lesions. Biopsy showed classic Hodgkin's disease. PET scan confirmed stage IV disease. She was treated with ABVD times 2 cycles and a follow-up PET scan showed Deauville 1. She went on to get 4 additional cycles of AVD and was subsequently watched off treatment. In February of 2018 she developed night sweats. A PET scan showed retroperitoneal, mediastinal and mesenteric lymphadenopathy with Deauville 5. Biopsy of a retroperitoneal lymph node in April 2018 showed classical Hodgkin's disease. Bone marrow was negative. She was seen in consultation at the [facility] by the transplant team. She also saw Dr. Ayad Haider at [facility] with the consensus that that she would not undergo transplant but that immunotherapy could be considered were she to relapse in the future. She was treated with bendamustine and brentuximab vedotin x6 which he completed October 21, 2018. A PET scan in November 05, 2018 showed a stable focus of increased uptake in the right pelvis with no evidence of mass. She has had no imaging since then. Recently she was having problems with her bowels which involved several days of constipation typically followed by several hours of stool urgency with formed stool that was not diarrhea. This had been going on for several months. She had a colonoscopy August 25 that showed hemorrhoids but was otherwise negative. Her bowel problems have resolved since that the colonoscopy. Over the past week she has had problems with non drenching night sweats, a cough, and low-grade fevers. She had covered sting last week that was negative. She is concerned about these recent symptoms possibly representing lymphoma related problems. She denies any particular problems with pain, bleeding, localized weakness, fever, chills, nausea, vomiting, anorexia or unintended weight loss. All other systems are negative. Past medical history 1. Supraventricular tachycardia for which he takes diltiazem 2. She denies high blood pressure, diabetes, rheumatic fever, tuberculosis, heart attacks, strokes, stomach ulcers. 3. History of walking pneumonia twice in the past 4. 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 Previous surgeries include an operation on her finger and Port-A-Cath placement and removal. She has also had a tonsillectomy 6. Her grandfather had bladder tumors but family history is otherwise negative for malignancy 7. 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 She lives with her adult son. She is not a smoker or drinker. 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 She is accompanied today by her good friend. - Patient Self-Reported Symptoms SR Constitution: Fever, Night Sweats SR ears, nose, mouth, throat issues: Cough SR respiratory issues: Cough SR Cardiovascular issues: Palpitations SR Gastrointestinal issues: Change in bowel pattern, Constipation SR Neuro issues: Numbness or tingling, Difficulty balancing SR Endocrine issues: Hot flashes Home Medications and Allergies Home Medications Medication Instructions Recorded Confirmed Type Probiotic 1 cap PO DAILY #0 07/04/12 09/15/19 History coQ10 (ubiquinol) 250 mg PO DAILY #0 07/04/12 09/15/19 History multivitamin 1 tab PO DAILY #0 07/04/12 09/15/19 History [place]-3 Fish Oil 1 cap PO DAILY 05/15/18 09/15/19 History Protandim 1 dose PO DAILY 05/15/18 09/15/19 History Vitamin D Liquid 1 dose TOPICAL DAILY 05/15/18 09/15/19 History Quercitin 1 tab DAILY 07/10/18 09/15/19 History mupirocin 2 % topical ointment 1 applic TOP BID #30 gram 08/11/18 09/15/19 Rx Emmanuel Preciado Drops 1 tab DAILY 08/25/18 09/15/19 History Lymph Support 1 tab DAILY 08/25/18 09/15/19 History Vadim Stress 1 tab DAILY 08/25/18 09/15/19 History Respira Tone 1 tab DAILY 08/25/18 09/15/19 History Thyroid Plus 1 tab DAILY 08/25/18 09/15/19 History Whole Body Detox 1 tab DAILY 08/25/18 09/15/19 History ascorbic acid (vitamin C) [Vitamin 1,000 mg PO DAILY 08/25/18 09/15/19 History C] turmeric (bulk) [Curcumin] 1 % DAILY 08/25/18 09/15/19 History Marcus 1 tab DAILY 10/20/18 09/15/19 History Thymus 1,000 mg DAILY 10/20/18 09/15/19 History diltiazem HCl 180 mg 180 mg PO QPM #90 cap 06/26/19 09/15/19 Rx capsule,extended release 24 hr Allergies Allergy/AdvReac Type Severity Reaction Status Date / Time NSAIDS (Non-Steroidal Allergy Intermediate HIVES Verified 09/08/19 11:24 Anti-Inflamma [NSAIDS (NON-STEROIDAL ANTI-INFLAMMA] amoxicillin [AMOXICILLIN] Allergy Mild rash Verified 09/08/19 11:24 Exam Vital signs: Vital Signs Temp Pulse Resp BP Pulse Ox 09/15/19 13:47 99.8 F H 87 16 115/75 97 Intake and Output 09/14/19 09/15/19 09/15/19 23:59 07:59 15:59 Other: Weight 50.9 kg Patient Weight 09/15/19 23:59 Weight 50.9 kg Narrative: She was awake, alert and oriented x3. There was no palpable lymphadenopathy in the cervical, supraclavicular axillary regions. There was no inguinal or femoral adenopathy. Lungs were clear without wheezes or rales. Heart showed a regular rate and rhythm without murmur, gallop or rub. The abdomen is soft and nontender without any palpable enlargement of liver or spleen. The split the liver and spleen were not enlarged to palpation or percussion. There was no evidence of phlebitis in the lower extremities. Results - Labs Laboratory Last Values WBC 5.1 X10^3/uL (4.5-11.0) 09/14/19 13:20 RBC 3.92 X10^6/uL (4.0-5.2) L 09/14/19 13:20 Hgb 12.4 g/dL (12.0-16.0) 09/14/19 13:20 Hct 36.4 % (36-46) 09/14/19 13:20 MCV 93.0 fL (80-100) 09/14/19 13:20 MCH 31.5 PG (26-34) 09/14/19 13:20 MCHC 33.9 % (30-36) 09/14/19 13:20 RDW 13.6 % (11.6-14.8) 09/14/19 13:20 Plt Count 144 X10^3/uL (150-400) L 09/14/19 13:20 Neut % (Auto) 52.1 % (50-75) 09/14/19 13:20 Lymph % (Auto) 33.7 % (25-40) 09/14/19 13:20 Sargent % (Auto) 12.1 % (3-14) 09/14/19 13:20 Eos % (Auto) 1.3 % (2-4) L 09/14/19 13:20 Baso % (Auto) 0.8 % (0-2) 09/14/19 13:20 Neut # (Auto) 2600 /uL (7802-0456) 09/14/19 13:20 Lymph # (Auto) 1700 /uL (6202-9900) 09/14/19 13:20 Sargent # (Auto) 600 /uL (0-900) 09/14/19 13:20 Eos # (Auto) 100 /uL (0-450) 09/14/19 13:20 Baso # (Auto) 0 /uL (0-100) 09/14/19 13:20 Total Counted 50 11/10/18 08:40 Seg Neutrophils % 34.0 % (38-70) L 11/10/18 08:40 Band Neutrophils % 4.0 % (3-7) 11/10/18 08:40 Lymphocytes % (Manual) 24.0 % (25-45) L 11/10/18 08:40 Atypical Lymphs % 4.0 % (-0) H 11/10/18 08:40 Monocytes % (Manual) 32.0 % (2-11) H 11/10/18 08:40 Eosinophils % (Manual) 6.0 % (2-4) H 09/08/18 14:10 Basophils % (Manual) 2.0 % (0-1) H 11/10/18 08:40 Metamyelocytes % 1.0 % (-0) H 08/11/18 10:20 Neutrophils # (Manual) 684 /uL (4045-7580) L 11/10/18 08:40 Smudge Cells 1+ H 08/05/18 14:30 Dohle Bodies 1+ H 08/11/18 10:20 Platelet Estimate Decreased on smear 08/11/18 10:20 Plt Morphology Comment 08/11/18 10:20 RBC Morphology Normal morphology 11/10/18 08:40 Hypochromasia 1+ H 07/28/18 11:02 Poikilocytosis 1+ H 08/05/18 14:30 Anisocytosis 1+ H 09/08/18 14:10 Microcytosis 1+ H 07/09/18 09:40 Ovalocytes 1+ H 07/28/18 11:02 ESR 83 MM/HR (0-20) H 05/22/18 08:36 PT 14.2 SECONDS (10.1-12.7) H 04/24/18 14:15 INR 1.2 (0.9-1.3) 04/24/18 14:15 Sodium 138 mmol/L (137-145) 09/14/19 13:20 Potassium 4.0 mmol/L (3.4-5.1) 09/14/19 13:20 Chloride 104 mmol/L (98-107) 09/14/19 13:20 Carbon Dioxide 30 mmol/L (22-32) 09/14/19 13:20 BUN 19 mg/dL (7-17) H 09/14/19 13:20 Creatinine 0.61 mg/dL (0.52-1.04) 09/14/19 13:20 Estimated GFR > 60.0 mL/min (>60) 09/14/19 13:20 BUN/Creatinine Ratio 31.1 (6-22) H 09/14/19 13:20 Glucose 107 mg/dL (80-110) 09/14/19 13:20 Calcium 9.2 mg/dL (8.4-10.2) 09/14/19 13:20 Total Bilirubin 0.4 mg/dL (0.2-1.3) 09/14/19 13:20 AST 37 IU/L (14-36) H 09/14/19 13:20 ALT 26 IU/L (<35) 09/14/19 13:20 Alkaline Phosphatase 91 U/L (38-126) 09/14/19 13:20 Lactate Dehydrogenase 552 U/L (313-618) 09/14/19 13:20 Bjnv-1-Jalsegijibxle 3.61 mg/L (< 2.52) H 05/11/19 12:31 Total Protein 6.6 g/dL (6.3-8.2) 09/14/19 13:20 Albumin 4.0 g/dL (3.5-5.0) 09/14/19 13:20 Globulin 2.6 g/dL (1.7-4.1) 09/14/19 13:20 Albumin/Globulin Ratio 1.5 (1.0-2.8) 09/14/19 13:20 Hep Bs Antigen Negative s/c (NEGATIVE) 05/15/18 14:32 Hep Bs Antibody Nonreactive (Nonreactive) 05/15/18 15:31 Hep B Core Total Ab Nonreactive (Nonreactive) 05/15/18 15:31 Hep B Core IgM Ab Nonreactive (Nonreactive) 05/15/18 15:31 Hepatitis C Antibody Negative s/c (NEGATIVE) 05/15/18 14:32 Assessment and Plan (1) Hodgkins lymphoma in relapse Overview: 1. Stage IV classical HD, diagnosed after skin punch biopsy of a lesion on the right superior upper chest on 05/15/2016. CT and PET scan staging showed extensive multiple superficial soft tissues of the skin and retroperitoneal lymphadenpathy (stage IV) 2. Patient received ABVD from 06/12/2016 through 12/04/2016. After 2 cycles, she had [place] 1 PET response, bleomycin was discontinued. 3. Relapsed in 02/2018, with B symptoms. Confirmed by CT guided retroperitoneal biopsy on 04/25/2018. PET showed above and below diaphragm involvement, with negative BMA/BX. Stage III. 4. Salvage Bendamustine/B-Vedotin x 6 cycles from 05/26/2018 to 10/21/2018. Assessment: She is overall doing well. She does have a 1 week history of low-grade fever, cough, and non drenching night sweats. The symptoms are reminiscent of what she had experienced at relapse previously. She is has been about 10 months since her most recent recent imaging. Accordingly, she would be appropriately evaluated with a CT scan of the chest, abdomen and pelvis. We reviewed her recent laboratory work that looks reassuring including an improving platelet count, and normal LDH. Her exam is negative including skin exam. If her scan is clear, we could continue to monitor her clinically and with lab work at 3 to six-month intervals after that. I personally spent 25 minutes in today's wzns-su-vzha visit with greater than 50% of the time spent in counseling on the issues outlined above. (2) Follicular lymphoma Overview: Follicular lymphoma diagnosed by needle core biopsy of retroperitoneal lymph nodes on 12/27/2008 that showed atypical lymphoid infiltrate most consistent with follicular lymphoma. 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 FLIPI score was 2. She was consulted at [facility] and active surveillance was recommended. Assessment: Until now there has been no evidence to suggest recurrence or transformation of her underlying follicular lymphoma. The CT-guided biopsy of the retroperitoneal lymph node on April 25, 2018 showed no evidence of follicular lymphoma, but relapsed HD (see above) Plan: Clinical active surveillance.
[2019-09-22 09:51] VITALS: BP 115/72; PULSE 79; RESP 16; TEMP 36.9; O2SAT 100
--- NOTE | 2019-09-22 10:10 | P.PNONC_ITS ---
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 Oncology History Ms. Arredondo presents today for follow-up of her lymphoma. Tomorrow she will be 74 years old. She received presented in December of 2008 with retroperitoneal lymphadenopathy. Biopsy showed follicular lymphoma. Bone marrow showed low- level involvement. She was seen by Dr. Seth Baker at that time and also by Dr. Lillie Mays at the [facility]. Observation was recommended. In April of 2016 she developed multiple raised, red, tender skin lesions. Biopsy showed classic Hodgkin's disease. PET scan confirmed stage IV disease. She was treated with ABVD times 2 cycles and a follow-up PET scan showed [place] 1. She went on to get 4 additional cycles of AVD and was subsequently watched off treatment. In February of 2018 she developed night sweats. A PET scan showed retroperitoneal, mediastinal and mesenteric lymphadenopathy with [place] 5. Biopsy of a retroperitoneal lymph node in April 2018 showed classical Hodgkin's disease. Bone marrow was negative. She was seen in consultation at the [facility] by the transplant team. She also saw Dr. Ayad Haider at [facility] with the consensus that that she would not undergo transplant but that immunotherapy could be considered were she to relapse in the future. She was treated with bendamustine and brentuximab vedotin x6 which he completed October 21, 2018. A PET scan in November 05, 2018 showed a stable focus of increased uptake in the right pelvis with no evidence of mass. She has had no imaging since then. Recently she was having problems with her bowels which involved several days of constipation typically followed by several hours of stool urgency with formed stool that was not diarrhea. This had been going on for several months. She had a colonoscopy August 25 that showed hemorrhoids but was otherwise negative. Her bowel problems have resolved since that the colonoscopy. She was seen in the office last week for follow-up and having night sweats, fevers and cough. Over the past weeks the fevers have resolved. Her cough and night sweats are markedly improved she considers them minimal at this time. She denies any particular problems with pain, bleeding, localized weakness, fever, chills, nausea, vomiting, anorexia or unintended weight loss. All other systems are negative. Because of the symptoms she was experiencing last week, she was set up for a CT scan and comes in today to review the results. Past medical history 1. Supraventricular tachycardia for which he takes diltiazem 2. She denies high blood pressure, diabetes, rheumatic fever, tuberculosis, heart attacks, strokes, stomach ulcers. 3. History of walking pneumonia twice in the past 4. 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 Previous surgeries include an operation on her finger and Port-A-Cath placement and removal. She has also had a tonsillectomy 6. Her grandfather had bladder tumors but family history is otherwise negative for malignancy 7. She has run a [employer]. She lives with her adult son. She is not a smoker or drinker. 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 She is accompanied today by her good friend. - Patient Self-Reported Symptoms SR Constitution: Fever, Night Sweats SR ears, nose, mouth, throat issues: Cough SR respiratory issues: Cough SR Cardiovascular issues: Palpitations SR Gastrointestinal issues: Change in bowel pattern, Constipation SR Neuro issues: Numbness or tingling, Difficulty balancing SR Endocrine issues: Hot flashes Home Medications and Allergies Home Medications Medication Instructions Recorded Confirmed Type Probiotic 1 cap PO DAILY #0 07/04/12 09/22/19 History coQ10 (ubiquinol) 250 mg PO DAILY #0 07/04/12 09/22/19 History multivitamin 1 tab PO DAILY #0 07/04/12 09/22/19 History [place]-3 Fish Oil 1 cap PO DAILY 05/15/18 09/22/19 History Protandim 1 dose PO DAILY 05/15/18 09/22/19 History Vitamin D Liquid 1 dose TOPICAL DAILY 05/15/18 09/22/19 History Quercitin 1 tab DAILY 07/10/18 09/22/19 History mupirocin 2 % topical ointment 1 applic TOP BID #30 gram 08/11/18 09/22/19 Rx Emmanuel Preciado Drops 1 tab DAILY 08/25/18 09/22/19 History Lymph Support 1 tab DAILY 08/25/18 09/22/19 History Vadim Stress 1 tab DAILY 08/25/18 09/22/19 History Respira Tone 1 tab DAILY 08/25/18 09/22/19 History Thyroid Plus 1 tab DAILY 08/25/18 09/22/19 History Whole Body Detox 1 tab DAILY 08/25/18 09/22/19 History ascorbic acid (vitamin C) [Vitamin 1,000 mg PO DAILY 08/25/18 09/22/19 History C] turmeric (bulk) [Curcumin] 1 % DAILY 08/25/18 09/22/19 History Marcus 1 tab DAILY 10/20/18 09/22/19 History Thymus 1,000 mg DAILY 10/20/18 09/22/19 History diltiazem HCl 180 mg 180 mg PO QPM #90 cap 06/26/19 09/22/19 Rx capsule,extended release 24 hr Allergies Allergy/AdvReac Type Severity Reaction Status Date / Time NSAIDS (Non-Steroidal Allergy Intermediate HIVES Verified 09/08/19 11:24 Anti-Inflamma [NSAIDS (NON-STEROIDAL ANTI-INFLAMMA] amoxicillin [AMOXICILLIN] Allergy Mild rash Verified 09/08/19 11:24 Exam Vital signs: Vital Signs Temp Pulse Resp BP Pulse Ox 09/22/19 09:51 98.5 F 79 16 115/72 100 Intake and Output 09/21/19 09/22/19 09/22/19 23:59 07:59 15:59 Other: Weight 51.3 kg Patient Weight 09/22/19 23:59 Weight 51.3 kg Narrative: She was awake, alert and oriented x3. Results - Labs Laboratory Last Values WBC 5.1 X10^3/uL (4.5-11.0) 09/14/19 13:20 RBC 3.92 X10^6/uL (4.0-5.2) L 09/14/19 13:20 Hgb 12.4 g/dL (12.0-16.0) 09/14/19 13:20 Hct 36.4 % (36-46) 09/14/19 13:20 MCV 93.0 fL (80-100) 09/14/19 13:20 MCH 31.5 PG (26-34) 09/14/19 13:20 MCHC 33.9 % (30-36) 09/14/19 13:20 RDW 13.6 % (11.6-14.8) 09/14/19 13:20 Plt Count 144 X10^3/uL (150-400) L 09/14/19 13:20 Neut % (Auto) 52.1 % (50-75) 09/14/19 13:20 Lymph % (Auto) 33.7 % (25-40) 09/14/19 13:20 [place] % (Auto) 12.1 % (3-14) 09/14/19 13:20 Eos % (Auto) 1.3 % (2-4) L 09/14/19 13:20 Baso % (Auto) 0.8 % (0-2) 09/14/19 13:20 Neut # (Auto) 2600 /uL (6415-2679) 09/14/19 13:20 Lymph # (Auto) 1700 /uL (8229-7577) 09/14/19 13:20 [place] # (Auto) 600 /uL (0-900) 09/14/19 13:20 Eos # (Auto) 100 /uL (0-450) 09/14/19 13:20 Baso # (Auto) 0 /uL (0-100) 09/14/19 13:20 Total Counted 50 11/10/18 08:40 Seg Neutrophils % 34.0 % (38-70) L 11/10/18 08:40 Band Neutrophils % 4.0 % (3-7) 11/10/18 08:40 Lymphocytes % (Manual) 24.0 % (25-45) L 11/10/18 08:40 Atypical Lymphs % 4.0 % (-0) H 11/10/18 08:40 Monocytes % (Manual) 32.0 % (2-11) H 11/10/18 08:40 Eosinophils % (Manual) 6.0 % (2-4) H 09/08/18 14:10 Basophils % (Manual) 2.0 % (0-1) H 11/10/18 08:40 Metamyelocytes % 1.0 % (-0) H 08/11/18 10:20 Neutrophils # (Manual) 684 /uL (0133-1038) L 11/10/18 08:40 Smudge Cells 1+ H 08/05/18 14:30 Dohle Bodies 1+ H 08/11/18 10:20 Platelet Estimate Decreased on smear 08/11/18 10:20 Plt Morphology Comment 08/11/18 10:20 RBC Morphology Normal morphology 11/10/18 08:40 Hypochromasia 1+ H 07/28/18 11:02 Poikilocytosis 1+ H 08/05/18 14:30 Anisocytosis 1+ H 09/08/18 14:10 Microcytosis 1+ H 07/09/18 09:40 Ovalocytes 1+ H 07/28/18 11:02 ESR 83 MM/HR (0-20) H 05/22/18 08:36 PT 14.2 SECONDS (10.1-12.7) H 04/24/18 14:15 INR 1.2 (0.9-1.3) 04/24/18 14:15 Sodium 138 mmol/L (137-145) 09/14/19 13:20 Potassium 4.0 mmol/L (3.4-5.1) 09/14/19 13:20 Chloride 104 mmol/L (98-107) 09/14/19 13:20 Carbon Dioxide 30 mmol/L (22-32) 09/14/19 13:20 BUN 19 mg/dL (7-17) H 09/14/19 13:20 Creatinine 0.61 mg/dL (0.52-1.04) 09/14/19 13:20 Estimated GFR > 60.0 mL/min (>60) 09/14/19 13:20 BUN/Creatinine Ratio 31.1 (6-22) H 09/14/19 13:20 Glucose 107 mg/dL (80-110) 09/14/19 13:20 Calcium 9.2 mg/dL (8.4-10.2) 09/14/19 13:20 Total Bilirubin 0.4 mg/dL (0.2-1.3) 09/14/19 13:20 AST 37 IU/L (14-36) H 09/14/19 13:20 ALT 26 IU/L (<35) 09/14/19 13:20 Alkaline Phosphatase 91 U/L (38-126) 09/14/19 13:20 Lactate Dehydrogenase 552 U/L (313-618) 09/14/19 13:20 Vhdh-3-Vvgbblgdyulhm 3.61 mg/L (< 2.52) H 05/11/19 12:31 Total Protein 6.6 g/dL (6.3-8.2) 09/14/19 13:20 Albumin 4.0 g/dL (3.5-5.0) 09/14/19 13:20 Globulin 2.6 g/dL (1.7-4.1) 09/14/19 13:20 Albumin/Globulin Ratio 1.5 (1.0-2.8) 09/14/19 13:20 Hep Bs Antigen Negative s/c (NEGATIVE) 05/15/18 14:32 Hep Bs Antibody Nonreactive (Nonreactive) 05/15/18 15:31 Hep B Core Total Ab Nonreactive (Nonreactive) 05/15/18 15:31 Hep B Core IgM Ab Nonreactive (Nonreactive) 05/15/18 15:31 Hepatitis C Antibody Negative s/c (NEGATIVE) 05/15/18 14:32 Assessment and Plan (1) Hodgkins lymphoma in relapse Overview: 1. Stage IV classical HD, diagnosed after skin punch biopsy of a lesion on the right superior upper chest on 05/15/2016. CT and PET scan staging showed extensive multiple superficial soft tissues of the skin and retroperitoneal lymphadenpathy (stage IV) 2. Patient received ABVD from 06/12/2016 through 12/04/2016. After 2 cycles, she had [place] 1 PET response, bleomycin was discontinued. 3. Relapsed in 02/2018, with B symptoms. Confirmed by CT guided retroperitoneal biopsy on 04/25/2018. PET showed above and below diaphragm involvement, with negative BMA/BX. Stage III. 4. Salvage Bendamustine/B-Vedotin x 6 cycles from 05/26/2018 to 10/21/2018. Assessment: I personally reviewed her CT scan also discussed the scan results with the radiologist. The lesion and the costophrenic angle at the base of the right lung is 3 mm and indeterminate. It is too small to further characterize at this time and would be appropriately monitored. The lesion in the liver is of uncertain etiology. It measures 1.3 cm and is hypodense. It could be a hemangioma. Of note is that the current scan was done early in the arterial phase and previous scans were done in a more delayed venous phase. This could account for the new appearance of this lesion. Alternatively, it could represent a lymphoma related spot. However, this would be statistically less likely given the fact that she does not have any other areas of disease progression where she previously had known lymphoma involvement. We discussed her options. One approach would be to do another CT scan in mid November. Would do lab work as well. A decision on further evaluation could be made once her clinical status, lab results, and radiographic findings are reviewed. Alternatively, we could proceed with further workup now. I reviewed this with Radiology and the options would include a multiphase CT scan or liver MRI. We discussed the logistics and rationale for considering a liver MRI. I told her that I thought either approach would be reasonable. At the present time, she has thinking she would like to repeat the scan in mid November with lab work prior and see me for follow-up. She will let us know if she wishes to proceed with the MRI in the interim. Plan 1. CT scan was personally reviewed and discussed with radiology 2. Results were presented to the patient in options discussed as outlined above 3. She will return in mid November for labs and a CT scan prior to an office visit 4. She will let us know if she wishes to pursue further testing prior to that time, and we discussed an MRI as the next step. (2) Follicular lymphoma Overview: Follicular lymphoma diagnosed by needle core biopsy of retroperitoneal lymph nodes on 12/27/2008 that showed atypical lymphoid infiltrate most consistent with follicular lymphoma. 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 FLIPI score was 2. She was consulted at [facility] and active surveillance was recommended. Assessment: Until now there has been no evidence to suggest recurrence or transformation of her underlying follicular lymphoma. The CT-guided biopsy of the retroperitoneal lymph node on April 25, 2018 showed no evidence of follicular lymphoma, but relapsed HD (see above) Plan: Clinical active surveillance.
[2019-12-01 13:38] LABS: Add Manual Diff / Slide Review NO; Basophils Absolute Auto 100 /uL (0-100); Basophils Percent Auto 1.2 % (0-2); Eosinophils Absolute Auto 100 /uL (0-450); Eosinophils Percent Auto 1.5 % (2-4); Hematocrit 37.3 % (36-46); Hemoglobin 12.7 g/dL (12.0-16.0); Lymphocytes Absolute Auto 1400 /uL (1100-4500); Mean Corpuscular Hemoglobin 31.1 PG (26-34); Mean Corpuscular Volume 91.5 fL (80-100); Monocytes Absolute Auto 600 /uL (0-900); Monocytes Percent Auto 11.9 % (3-14); Neutrophils Absolute Auto 2600 /uL (1500-7000); Neutrophils Percent Auto 55.4 % (50-75); Platelet Count 156 X10^3/uL (150-400); Red Blood Cell Count 4.07 X10^6/uL (4.0-5.2); Red Cell Distribution Width 14.2 % (11.6-14.8); White Blood Cell Count 4.7 X10^3/uL (4.5-11.0)
[2019-12-01 13:51] LABS: Alanine Aminotransferase 26 IU/L (<35); Albumin 4.1 g/dL (3.5-5.0); Albumin Globulin Ratio 1.5 (1.0-2.8); Alkaline Phosphatase 97 U/L (38-126); Aspartate Aminotransferase 33 IU/L (14-36); BUN Creatinine Ratio 29.4 (6-22); Bilirubin Total 0.4 mg/dL (0.2-1.3); Blood Urea Nitrogen 20 mg/dL (7-17); Calcium 9.2 mg/dL (8.4-10.2); Carbon Dioxide 29 mmol/L (22-32); Chloride 104 mmol/L (98-107); Estimated Glomerular Filt Rate > 60.0 mL/min (>60); Globulin 2.7 g/dL (1.7-4.1); Glucose 105 mg/dL (80-110); HEMOLYSIS < 15 (0-50); Lactate Dehydrogenase 478 U/L (313-618); Potassium 4.1 mmol/L (3.4-5.1); Sodium 137 mmol/L (137-145); Total Protein 6.8 g/dL (6.3-8.2)
[2019-12-08 10:51] VITALS: BP 109/70; PULSE 62; RESP 18; TEMP 36.7; O2SAT 99
--- NOTE | 2019-12-08 11:20 | P.PNONC_ITS ---
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 Oncology History Ms. Arredondo presents today for follow-up of her lymphoma. Tomorrow she will be 74 years old. She received presented in December of 2008 with retroperitoneal lymphadenopathy. Biopsy showed follicular lymphoma. Bone marrow showed low- level involvement. She was seen by Dr. Seth Baker at that time and also by Dr. Lillie Mays at the [facility]. Observation was recommended. In April of 2016 she developed multiple raised, red, tender skin lesions. Biopsy showed classic Hodgkin's disease. PET scan confirmed stage IV disease. She was treated with ABVD times 2 cycles and a follow-up PET scan showed Deauville 1. She went on to get 4 additional cycles of AVD and was subsequently watched off treatment. In February of 2018 she developed night sweats. A PET scan showed retroperitoneal, mediastinal and mesenteric lymphadenopathy with Deauville 5. Biopsy of a retroperitoneal lymph node in April 2018 showed classical Hodgkin's disease. Bone marrow was negative. She was seen in consultation at the [facility] by the transplant team. She also saw Dr. Ayad Haider at [facility] with the consensus that that she would not undergo transplant but that immunotherapy could be considered were she to relapse in the future. She was treated with bendamustine and brentuximab vedotin x6 which he completed October 21, 2018. A PET scan in November 05, 2018 showed a stable focus of increased uptake in the right pelvis with no evidence of mass. She was seen for follow-up in August and had a CT scan done. At that time it showed a 3 mm lesion in the costophrenic angle posteriorly in the right lower lobe as well as a 1.3 cm lesion in the left lobe of the liver, possibly hemangioma. She was counseled about options and elected for 3 month follow-up scan. This was accomplished and she comes in today to review the results. She denies any particular problems with pain, bleeding, localized weakness, fever, chills, nausea, vomiting, anorexia or unintended weight loss. All other systems are negative. Past medical history 1. Supraventricular tachycardia for which he takes diltiazem 2. She denies high blood pressure, diabetes, rheumatic fever, tuberculosis, heart attacks, strokes, stomach ulcers. 3. History of walking pneumonia twice in the past 4. 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 Previous surgeries include an operation on her finger and Port-A-Cath placement and removal. She has also had a tonsillectomy 6. Her grandfather had bladder tumors but family history is otherwise negative for malignancy 7. 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 She lives with her adult son. She is not a smoker or drinker. 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 She is accompanied today by her good friend. - Patient Self-Reported Symptoms SR Constitution: Fever, Night Sweats SR ears, nose, mouth, throat issues: Cough SR respiratory issues: Cough SR Cardiovascular issues: Palpitations SR Gastrointestinal issues: Change in bowel pattern, Constipation SR Neuro issues: Numbness or tingling, Difficulty balancing SR Endocrine issues: Hot flashes Home Medications and Allergies Home Medications Medication Instructions Recorded Confirmed Type Probiotic 1 cap PO DAILY #0 07/04/12 09/22/19 History coQ10 (ubiquinol) 250 mg PO DAILY #0 07/04/12 12/08/19 History multivitamin 1 tab PO DAILY #0 07/04/12 12/08/19 History Protandim 1 dose PO DAILY 05/15/18 09/22/19 History Vitamin D Liquid 1 dose TOPICAL DAILY 05/15/18 12/08/19 History mupirocin 2 % topical ointment 1 applic TOP BID #30 gram 08/11/18 12/08/19 Rx Vadim Stress 1 tab DAILY 08/25/18 12/08/19 History ascorbic acid (vitamin C) [Vitamin 1,000 mg PO DAILY 08/25/18 12/08/19 History C] turmeric (bulk) [Curcumin] 1 % DAILY 08/25/18 12/08/19 History diltiazem HCl 180 mg 180 mg PO QPM #90 cap 06/26/19 12/08/19 Rx capsule,extended release 24 hr Allergies Allergy/AdvReac Type Severity Reaction Status Date / Time NSAIDS (Non-Steroidal Allergy Intermediate HIVES Verified 09/08/19 11:24 Anti-Inflamma [NSAIDS (NON-STEROIDAL ANTI-INFLAMMA] amoxicillin [AMOXICILLIN] Allergy Mild rash Verified 09/08/19 11:24 Exam Vital signs: Vital Signs Temp Pulse Resp BP Pulse Ox 12/08/19 10:51 98.1 F 62 18 109/70 99 Intake and Output 12/07/19 12/08/19 12/08/19 23:59 07:59 15:59 Other: Weight 51 kg Patient Weight 12/08/19 23:59 Weight 51 kg Narrative: She was awake, alert and oriented x3. Results - Labs Laboratory Last Values WBC 4.7 X10^3/uL (4.5-11.0) 12/01/19 13:30 RBC 4.07 X10^6/uL (4.0-5.2) 12/01/19 13:30 Hgb 12.7 g/dL (12.0-16.0) 12/01/19 13:30 Hct 37.3 % (36-46) 12/01/19 13:30 MCV 91.5 fL (80-100) 12/01/19 13:30 MCH 31.1 PG (26-34) 12/01/19 13:30 MCHC 34.0 % (30-36) 12/01/19 13:30 RDW 14.2 % (11.6-14.8) 12/01/19 13:30 Plt Count 156 X10^3/uL (150-400) 12/01/19 13:30 Neut % (Auto) 55.4 % (50-75) 12/01/19 13:30 Lymph % (Auto) 30.0 % (25-40) 12/01/19 13:30 [place] % (Auto) 11.9 % (3-14) 12/01/19 13:30 Eos % (Auto) 1.5 % (2-4) L 12/01/19 13:30 Baso % (Auto) 1.2 % (0-2) 12/01/19 13:30 Neut # (Auto) 2600 /uL (8960-8910) 12/01/19 13:30 Lymph # (Auto) 1400 /uL (9226-8421) 12/01/19 13:30 [place] # (Auto) 600 /uL (0-900) 12/01/19 13:30 Eos # (Auto) 100 /uL (0-450) 12/01/19 13:30 Baso # (Auto) 100 /uL (0-100) 12/01/19 13:30 Total Counted 50 11/10/18 08:40 Seg Neutrophils % 34.0 % (38-70) L 11/10/18 08:40 Band Neutrophils % 4.0 % (3-7) 11/10/18 08:40 Lymphocytes % (Manual) 24.0 % (25-45) L 11/10/18 08:40 Atypical Lymphs % 4.0 % (-0) H 11/10/18 08:40 Monocytes % (Manual) 32.0 % (2-11) H 11/10/18 08:40 Eosinophils % (Manual) 6.0 % (2-4) H 09/08/18 14:10 Basophils % (Manual) 2.0 % (0-1) H 11/10/18 08:40 Metamyelocytes % 1.0 % (-0) H 08/11/18 10:20 Neutrophils # (Manual) 684 /uL (8753-2368) L 11/10/18 08:40 Smudge Cells 1+ H 08/05/18 14:30 Dohle Bodies 1+ H 08/11/18 10:20 Platelet Estimate Decreased on smear 08/11/18 10:20 Plt Morphology Comment 08/11/18 10:20 RBC Morphology Normal morphology 11/10/18 08:40 Hypochromasia 1+ H 07/28/18 11:02 Poikilocytosis 1+ H 08/05/18 14:30 Anisocytosis 1+ H 09/08/18 14:10 Microcytosis 1+ H 07/09/18 09:40 Ovalocytes 1+ H 07/28/18 11:02 ESR 83 MM/HR (0-20) H 05/22/18 08:36 PT 14.2 SECONDS (10.1-12.7) H 04/24/18 14:15 INR 1.2 (0.9-1.3) 04/24/18 14:15 Sodium 137 mmol/L (137-145) 12/01/19 13:30 Potassium 4.1 mmol/L (3.4-5.1) 12/01/19 13:30 Chloride 104 mmol/L (98-107) 12/01/19 13:30 Carbon Dioxide 29 mmol/L (22-32) 12/01/19 13:30 BUN 20 mg/dL (7-17) H 12/01/19 13:30 Creatinine 0.68 mg/dL (0.52-1.04) 12/01/19 13:30 Estimated GFR > 60.0 mL/min (>60) 12/01/19 13:30 BUN/Creatinine Ratio 29.4 (6-22) H 12/01/19 13:30 Glucose 105 mg/dL (80-110) 12/01/19 13:30 Calcium 9.2 mg/dL (8.4-10.2) 12/01/19 13:30 Total Bilirubin 0.4 mg/dL (0.2-1.3) 12/01/19 13:30 AST 33 IU/L (14-36) 12/01/19 13:30 ALT 26 IU/L (<35) 12/01/19 13:30 Alkaline Phosphatase 97 U/L (38-126) 12/01/19 13:30 Lactate Dehydrogenase 478 U/L (313-618) 12/01/19 13:30 Jvhq-1-Jbuveaogmaxwa 3.61 mg/L (< 2.52) H 05/11/19 12:31 Total Protein 6.8 g/dL (6.3-8.2) 12/01/19 13:30 Albumin 4.1 g/dL (3.5-5.0) 12/01/19 13:30 Globulin 2.7 g/dL (1.7-4.1) 12/01/19 13:30 Albumin/Globulin Ratio 1.5 (1.0-2.8) 12/01/19 13:30 Hep Bs Antigen Negative s/c (NEGATIVE) 05/15/18 14:32 Hep Bs Antibody Nonreactive (Nonreactive) 05/15/18 15:31 Hep B Core Total Ab Nonreactive (Nonreactive) 05/15/18 15:31 Hep B Core IgM Ab Nonreactive (Nonreactive) 05/15/18 15:31 Hepatitis C Antibody Negative s/c (NEGATIVE) 05/15/18 14:32 Assessment and Plan (1) Hodgkins lymphoma in relapse Overview: 1. Stage IV classical HD, diagnosed after skin punch biopsy of a lesion on the right superior upper chest on 05/15/2016. CT and PET scan staging showed extensive multiple superficial soft tissues of the skin and retroperitoneal lymphadenpathy (stage IV) 2. Patient received ABVD from 06/12/2016 through 12/04/2016. After 2 cycles, she had [place] 1 PET response, bleomycin was discontinued. 3. Relapsed in 02/2018, with B symptoms. Confirmed by CT guided retroperitoneal biopsy on 04/25/2018. PET showed above and below diaphragm involvement, with negative BMA/BX. Stage III. 4. Salvage Bendamustine/B-Vedotin x 6 cycles from 05/26/2018 to 10/21/2018. I personally reviewed her CT scan also discussed the scan results with the radiologist. The lesion and the costophrenic angle at the base of the right lung has resolved. The lesion in the liver has also resolved. Of note is that it is a different phase of contrast enhancement then in August, similar to previous studies which also did not show the lesion. This increases the likelihood it represents a hemangioma. There is no evidence of any recurrence lymphoma on her CT scan or clinical status and she is feeling good. Will continue to monitor her. She return in 3 months with lab work prior. We could consider scanning her again in 6 months, or any time if she has any signs or symptoms to suggest clinically significant disease progression. She will elvis l if any other problems should arise in the interim. Plan 1. CT scan was personally reviewed and discussed with radiology 2. Return in 3 months with labs prior 3. Could repeat CT scan in 6 months for surveillance, sooner if she has any problems that arise in the interim. 4. We plan to watch her off treatment unless she shows evidence of clinically significant disease progression in the future. 5. She had questions about her Port-A-Cath which isn't really bothering her, is being flushed once a month, and which she would like to leave in even though we have no plans to initiate chemotherapy in the near future. I told her that I thought that this plan was fine. (2) Follicular lymphoma Overview: Follicular lymphoma diagnosed by needle core biopsy of retroperitoneal lymph nodes on 12/27/2008 that showed atypical lymphoid infiltrate most consistent with follicular lymphoma. 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 FLIPI score was 2. She was consulted at [facility] and active surveillance was recommended. Assessment: Until now there has been no evidence to suggest recurrence or transformation of her underlying follicular lymphoma. The CT-guided biopsy of the retroperitoneal lymph node on April 25, 2018 showed no evidence of follicular lymphoma, but relapsed HD (see above) Plan: Clinical active surveillance.
--- NOTE | 2020-01-04 15:42 | PC.NURSE ---
PATIENT CALLED IN REPORTING NEW SYMPTOMS IN LAST WEEK. SHE STATES ENLARGED LYMPH NODES ON NECK, NONPRODUCTIVE COUGH IN THE EVENING AND JUST SINCE LAST EVENING A LOW GRADE TEMP. SHE ALSO FEELS MANY SMALL NODULES ON HER CHEST. SHE IS SCHEDULED TO SEE DR HUANG ON THIS SAT. THIS NURSE INSTRUCTED HER TO CALL THE RESPIRATORY CLINIC TO INQUIRE ABOUT A COVID TEST IF SHE EXPERIENCES ANY WORSENING OF HER SYMPTOMS BEFORE THEN.
[2020-01-06 09:00] VITALS: BP 135/69; PULSE 90; RESP 18; TEMP 36.6; O2SAT 99
--- NOTE | 2020-01-06 09:31 | ONC.PN ---
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 Oncology History Ms. Arredondo presents today for follow-up of her lymphoma. She is now 74 years old. She received presented in December of 2008 with retroperitoneal lymphadenopathy. Biopsy showed follicular lymphoma. Bone marrow showed low-level involvement. She was seen by Dr. Seth Baker at that time and also by Dr. Lillie Mays at the [place] [facility]. Observation was recommended. In April of 2016 she developed multiple raised, red, tender skin lesions. Biopsy showed classic Hodgkin's disease. PET scan confirmed stage IV disease. She was treated with ABVD times 2 cycles and a follow-up PET scan showed Deauville 1. She went on to get 4 additional cycles of AVD and was subsequently watched off treatment. In February of 2018 she developed night sweats. A PET scan showed retroperitoneal, mediastinal and mesenteric lymphadenopathy with Deauville 5. Biopsy of a retroperitoneal lymph node in April 2018 showed classical Hodgkin's disease. Bone marrow was negative. She was seen in consultation at the [place] [facility] by the transplant team. She also saw Dr. Ayad Haider at [facility] with the consensus that that she would not undergo transplant but that immunotherapy could be considered were she to relapse in the future. She was treated with bendamustine and brentuximab vedotin x6 which he completed October 21, 2018. A PET scan in November 05, 2018 showed a stable focus of increased uptake in the right pelvis with no evidence of mass. She was seen for follow-up in August and had a CT scan done. At that time it showed a 3 mm lesion in the costophrenic angle posteriorly in the right lower lobe as well as a 1.3 cm lesion in the left lobe of the liver, possibly hemangioma. She was counseled about options and elected for 3 month follow-up scan. This was done in November and showed resolution of the lung and liver lesions and no evidence of disease progression. She was given a 3 month follow-up appointment. She comes in today for an unscheduled visit. She has developed new skin lesions over the past 2 weeks or so. She saw her supervisor dehydrogenation and had biopsies done that showed CD 30 positive cells. She also had a squamous cell carcinoma noted. She has been having some night sweats and feels more tired over the last week or so. Today is a little better than it was. She does not have any other new pain, bleeding, localized weakness, fever, chills, nausea, vomiting, trouble swallowing, mouth sores, or shortness of breath. She does have a cough which is nonproductive. All other systems are negative. Past medical history 1. Supraventricular tachycardia for which he takes diltiazem 2. She denies high blood pressure, diabetes, rheumatic fever, tuberculosis, heart attacks, strokes, stomach ulcers. 3. History of walking pneumonia twice in the past 4. 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 Previous surgeries include an operation on her finger and Port-A-Cath placement and removal. She has also had a tonsillectomy 6. Her grandfather had bladder tumors but family history is otherwise negative for malignancy 7. 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 She lives with her adult son. She is not a smoker or drinker. 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 - Patient Self-Reported Symptoms SR Constitution: Night Sweats SR ears, nose, mouth, throat issues: Cough SR respiratory issues: Cough SR Cardiovascular issues: Palpitations SR Gastrointestinal issues: Change in bowel pattern, Constipation SR Neuro issues: Numbness or tingling, Difficulty balancing SR Endocrine issues: Hot flashes Home Medications and Allergies Home Medications Medication Instructions Recorded Confirmed Type Probiotic 1 cap PO DAILY #0 07/04/12 09/22/19 History coQ10 (ubiquinol) 250 mg PO DAILY #0 07/04/12 12/08/19 History multivitamin 1 tab PO DAILY #0 07/04/12 12/08/19 History Protandim 1 dose PO DAILY 05/15/18 09/22/19 History Vitamin D Liquid 1 dose TOPICAL DAILY 05/15/18 12/08/19 History mupirocin 2 % topical ointment 1 applic TOP BID #30 gram 08/11/18 12/08/19 Rx Vadim Stress 1 tab DAILY 08/25/18 12/08/19 History ascorbic acid (vitamin C) [Vitamin 1,000 mg PO DAILY 08/25/18 12/08/19 History C] turmeric (bulk) [Curcumin] 1 % DAILY 08/25/18 12/08/19 History diltiazem HCl 180 mg 180 mg PO QPM #90 cap 06/26/19 12/08/19 Rx capsule,extended release 24 hr Allergies Allergy/AdvReac Type Severity Reaction Status Date / Time NSAIDS (Non-Steroidal Allergy Intermediate HIVES Verified 09/08/19 11:24 Anti-Inflamma [NSAIDS (NON-STEROIDAL ANTI-INFLAMMA] amoxicillin [AMOXICILLIN] Allergy Mild rash Verified 09/08/19 11:24 Exam Vital signs: Vital Signs Temp Pulse Resp BP Pulse Ox 01/06/20 09:00 98 F 90 18 135/69 99 Intake and Output 01/05/20 01/06/20 01/06/20 23:59 07:59 15:59 Other: Weight 51 kg Patient Weight 01/06/20 23:59 Weight 51 kg Narrative: She was awake, alert and oriented x3. She was in no acute distress. She had multiple skin nodules that were red, raised, and measured up to about a cm. Most were smaller than that. There were scattered on her scalp, neck, and trunk. There were some several 0.5 cm left lower anterior and posterior cervical lymph nodes. There was no other palpable lymphadenopathy. There was no evidence of phlebitis in the lower extremities. Results - Labs Laboratory Last Values WBC 4.7 X10^3/uL (4.5-11.0) 12/01/19 13:30 RBC 4.07 X10^6/uL (4.0-5.2) 12/01/19 13:30 Hgb 12.7 g/dL (12.0-16.0) 12/01/19 13:30 Hct 37.3 % (36-46) 12/01/19 13:30 MCV 91.5 fL (80-100) 12/01/19 13:30 MCH 31.1 PG (26-34) 12/01/19 13:30 MCHC 34.0 % (30-36) 12/01/19 13:30 RDW 14.2 % (11.6-14.8) 12/01/19 13:30 Plt Count 156 X10^3/uL (150-400) 12/01/19 13:30 Neut % (Auto) 55.4 % (50-75) 12/01/19 13:30 Lymph % (Auto) 30.0 % (25-40) 12/01/19 13:30 [place] % (Auto) 11.9 % (3-14) 12/01/19 13:30 Eos % (Auto) 1.5 % (2-4) L 12/01/19 13:30 Baso % (Auto) 1.2 % (0-2) 12/01/19 13:30 Neut # (Auto) 2600 /uL (4540-8063) 12/01/19 13:30 Lymph # (Auto) 1400 /uL (0101-1587) 12/01/19 13:30 [place] # (Auto) 600 /uL (0-900) 12/01/19 13:30 Eos # (Auto) 100 /uL (0-450) 12/01/19 13:30 Baso # (Auto) 100 /uL (0-100) 12/01/19 13:30 Total Counted 50 11/10/18 08:40 Seg Neutrophils % 34.0 % (38-70) L 11/10/18 08:40 Band Neutrophils % 4.0 % (3-7) 11/10/18 08:40 Lymphocytes % (Manual) 24.0 % (25-45) L 11/10/18 08:40 Atypical Lymphs % 4.0 % (-0) H 11/10/18 08:40 Monocytes % (Manual) 32.0 % (2-11) H 11/10/18 08:40 Eosinophils % (Manual) 6.0 % (2-4) H 09/08/18 14:10 Basophils % (Manual) 2.0 % (0-1) H 11/10/18 08:40 Metamyelocytes % 1.0 % (-0) H 08/11/18 10:20 Neutrophils # (Manual) 684 /uL (2360-8957) L 11/10/18 08:40 Smudge Cells 1+ H 08/05/18 14:30 Dohle Bodies 1+ H 08/11/18 10:20 Platelet Estimate Decreased on smear 08/11/18 10:20 Plt Morphology Comment 08/11/18 10:20 RBC Morphology Normal morphology 11/10/18 08:40 Hypochromasia 1+ H 07/28/18 11:02 Poikilocytosis 1+ H 08/05/18 14:30 Anisocytosis 1+ H 09/08/18 14:10 Microcytosis 1+ H 07/09/18 09:40 Ovalocytes 1+ H 07/28/18 11:02 ESR 83 MM/HR (0-20) H 05/22/18 08:36 PT 14.2 SECONDS (10.1-12.7) H 04/24/18 14:15 INR 1.2 (0.9-1.3) 04/24/18 14:15 Sodium 137 mmol/L (137-145) 12/01/19 13:30 Potassium 4.1 mmol/L (3.4-5.1) 12/01/19 13:30 Chloride 104 mmol/L (98-107) 12/01/19 13:30 Carbon Dioxide 29 mmol/L (22-32) 12/01/19 13:30 BUN 20 mg/dL (7-17) H 12/01/19 13:30 Creatinine 0.68 mg/dL (0.52-1.04) 12/01/19 13:30 Estimated GFR > 60.0 mL/min (>60) 12/01/19 13:30 BUN/Creatinine Ratio 29.4 (6-22) H 12/01/19 13:30 Glucose 105 mg/dL (80-110) 12/01/19 13:30 Calcium 9.2 mg/dL (8.4-10.2) 12/01/19 13:30 Total Bilirubin 0.4 mg/dL (0.2-1.3) 12/01/19 13:30 AST 33 IU/L (14-36) 12/01/19 13:30 ALT 26 IU/L (<35) 12/01/19 13:30 Alkaline Phosphatase 97 U/L (38-126) 12/01/19 13:30 Lactate Dehydrogenase 478 U/L (313-618) 12/01/19 13:30 Xlxl-9-Vgcbcntfbplha 3.61 mg/L (< 2.52) H 05/11/19 12:31 Total Protein 6.8 g/dL (6.3-8.2) 12/01/19 13:30 Albumin 4.1 g/dL (3.5-5.0) 12/01/19 13:30 Globulin 2.7 g/dL (1.7-4.1) 12/01/19 13:30 Albumin/Globulin Ratio 1.5 (1.0-2.8) 12/01/19 13:30 Hep Bs Antigen Negative s/c (NEGATIVE) 05/15/18 14:32 Hep Bs Antibody Nonreactive (Nonreactive) 05/15/18 15:31 Hep B Core Total Ab Nonreactive (Nonreactive) 05/15/18 15:31 Hep B Core IgM Ab Nonreactive (Nonreactive) 05/15/18 15:31 Hepatitis C Antibody Negative s/c (NEGATIVE) 05/15/18 14:32 Assessment and Plan (1) Hodgkins lymphoma in relapse Overview: 1. Stage IV classical HD, diagnosed after skin punch biopsy of a lesion on the right superior upper chest on 05/15/2016. CT and PET scan staging showed extensive multiple superficial soft tissues of the skin and retroperitoneal lymphadenpathy (stage IV) 2. Patient received ABVD from 06/12/2016 through 12/04/2016. After 2 cycles, she had [place] 1 PET response, bleomycin was discontinued. 3. Relapsed in 02/2018, with B symptoms. Confirmed by CT guided retroperitoneal biopsy on 04/25/2018. PET showed above and below diaphragm involvement, with negative BMA/BX. Stage III. 4. Salvage Bendamustine/B-Vedotin x 6 cycles from 05/26/2018 to 10/21/2018. She now has recurrence of multiple skin nodules that look like her previous relapsed Hodgkin's. I discussed her pathology with Dr. Stevens who noted that the current biopsy looks similar to her previous skin biopsies. She was reluctant to call it Hodgkin's because of the lack of a lymph node to review but the morphologic appearance is similar. She previously saw Dr. Ayad Haider at [facility] in [place]. I contacted him a with the information and we made an urgent recur referral for her to see him, hopefully within the next week or so. She will have labs done today to include a CBC, metabolic panel, sedimentation rate and LDH. She also be set up for a PET scan for restaging. We discussed that additional treatment options are available including chemotherapy, immunotherapy, and stem cell transplant. She also may be eligible for a clinical trial. Although she is 74 years old she has a fit geriatric status. I explained that whatever we could do to treat her in town and save her trips to [place] we would be more than happy to do so. She and her friend understood this. She had multiple questions that were answered in detail. I personally spent 41 minutes in today's [id number] visit with greater than 50% of the time spent in counseling regarding the issues outlined above. (2) Follicular lymphoma Overview: Follicular lymphoma diagnosed by needle core biopsy of retroperitoneal lymph nodes on 12/27/2008 that showed atypical lymphoid infiltrate most consistent with follicular lymphoma. 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 FLIPI score was 2. She was consulted at [facility] and active surveillance was recommended. Assessment: Until now there has been no evidence to suggest recurrence or transformation of her underlying follicular lymphoma. The CT-guided biopsy of the retroperitoneal lymph node on April 25, 2018 showed no evidence of follicular lymphoma, but relapsed HD (see above) Plan: Clinical active surveillance.
[2020-01-06 10:00] LABS: Add Manual Diff / Slide Review NO; Basophils Absolute Auto 0 /uL (0-100); Basophils Percent Auto 0.6 % (0-2); Eosinophils Absolute Auto 0 /uL (0-450); Eosinophils Percent Auto 0.8 % (2-4); Hematocrit 37.7 % (36-46); Hemoglobin 12.5 g/dL (12.0-16.0); Lymphocytes Absolute Auto 500 /uL (1100-4500); Lymphocytes Percent Auto 12.5 % (25-40); Mean Corpuscular HGB Conc 33.2 % (30-36); Mean Corpuscular Hemoglobin 30.4 PG (26-34); Mean Corpuscular Volume 91.5 fL (80-100); Monocytes Absolute Auto 700 /uL (0-900); Monocytes Percent Auto 15.7 % (3-14); Neutrophils Absolute Auto 3000 /uL (1500-7000); Neutrophils Percent Auto 70.4 % (50-75); Platelet Count 126 X10^3/uL (150-400); Red Blood Cell Count 4.12 X10^6/uL (4.0-5.2); Red Cell Distribution Width 13.9 % (11.6-14.8); White Blood Cell Count 4.3 X10^3/uL (4.5-11.0)
[2020-01-06 10:13] LABS: Alanine Aminotransferase 24 IU/L (<35); Albumin 3.9 g/dL (3.5-5.0); Albumin Globulin Ratio 1.4 (1.0-2.8); Alkaline Phosphatase 103 U/L (38-126); Aspartate Aminotransferase 37 IU/L (14-36); BUN Creatinine Ratio 25.4 (6-22); Bilirubin Total 0.6 mg/dL (0.2-1.3); Blood Urea Nitrogen 17 mg/dL (7-17); Calcium 9.2 mg/dL (8.4-10.2); Carbon Dioxide 31 mmol/L (22-32); Chloride 100 mmol/L (98-107); Estimated Glomerular Filt Rate > 60.0 mL/min (>60); Globulin 2.7 g/dL (1.7-4.1); Glucose 95 mg/dL (80-110); HEMOLYSIS < 15 (0-50); Lactate Dehydrogenase 825 U/L (313-618); Potassium 3.9 mmol/L (3.4-5.1); Sodium 136 mmol/L (137-145); Total Protein 6.6 g/dL (6.3-8.2)
[2020-01-06 10:17] LABS: Erythrocyte Sedimentation Rate 30 MM/HR (0-20)
--- NOTE | 2020-01-19 15:15 | ONC.SCHED ---
Per Anny: Dr. Rose to talk with patient by phone tomorrow, 01/20/20, to discuss treatment. Silvia (triage tomorrow) will inform schedulers of treatment needing prior authorization so we can move forward to get patient started as soon as possible.
--- NOTE | 2020-01-20 08:09 | P.PNONC_ITS ---
PN -Subjective Interval history: ID/CC: 73-year-old female with history Hodgkin's lymphoma and low-grade follicular lymphoma now with relapsed HL s/p salvage chemotherapy with Brentuximab/Vedotin. Recently had recurrent skin lesions. Biopsy showed recurrent Hodgkins Disease. PET scan showed rapid, widespread progression including lungs and liver. She saw Dr. Ayad Haider at [facility] yesterday. I discussed her case with Dr. Haider. He recommends treatment with Keytruda. I called patient this morning. Explained plan which is what she had understood after her visit with Dr. Haider. Reviewed logistics (IV every 3 weeks) and potential toxicities of Keytruda which include auto-immune inflammation of skin, colon, liver, lung, and can affect any organ. Risk of heart inflammation is less than 1%, but is often fatal if it occurs. We also discussed progression and pseudoprogression. Decision to treat comes down to weighing relative risks. We will monitor closely for any evidence of toxicity. She is agreeable to proceed. Orders entered. Called clinic to start preauthorization. Will begin treatment PAM. - Patient Self-Reported Symptoms SR Constitution: Night Sweats SR ears, nose, mouth, throat issues: Cough SR respiratory issues: Cough SR Cardiovascular issues: Palpitations SR Gastrointestinal issues: Change in bowel pattern, Constipation SR Neuro issues: Numbness or tingling, Difficulty balancing SR Endocrine issues: Hot flashes Home Medications and Allergies Home Medications Medication Instructions Recorded Confirmed Type Probiotic 1 cap PO DAILY #0 07/04/12 09/22/19 History coQ10 (ubiquinol) 250 mg PO DAILY #0 07/04/12 12/08/19 History multivitamin 1 tab PO DAILY #0 07/04/12 12/08/19 History Protandim 1 dose PO DAILY 05/15/18 09/22/19 History Vitamin D Liquid 1 dose TOPICAL DAILY 05/15/18 12/08/19 History mupirocin 2 % topical ointment 1 applic TOP BID #30 gram 08/11/18 12/08/19 Rx Vadim Stress 1 tab DAILY 08/25/18 12/08/19 History ascorbic acid (vitamin C) [Vitamin 1,000 mg PO DAILY 08/25/18 12/08/19 History C] turmeric (bulk) [Curcumin] 1 % DAILY 08/25/18 12/08/19 History diltiazem HCl 180 mg 180 mg PO QPM #90 cap 06/26/19 12/08/19 Rx capsule,extended release 24 hr Allergies Allergy/AdvReac Type Severity Reaction Status Date / Time NSAIDS (Non-Steroidal Allergy Intermediate HIVES Verified 09/08/19 11:24 Anti-Inflamma [NSAIDS (NON-STEROIDAL ANTI-INFLAMMA] amoxicillin [AMOXICILLIN] Allergy Mild rash Verified 09/08/19 11:24 Exam Narrative: She was awake, alert and oriented x3. She was in no acute distress. She had multiple skin nodules that were red, raised, and measured up to about a cm. Most were smaller than that. There were scattered on her scalp, neck, and trunk. There were some several 0.5 cm left lower anterior and posterior cervical lymph nodes. There was no other palpable lymphadenopathy. There was no evidence of phlebitis in the lower extremities. Results - Labs Laboratory Last Values WBC 4.3 X10^3/uL (4.5-11.0) L 01/06/20 09:39 RBC 4.12 X10^6/uL (4.0-5.2) 01/06/20 09:39 Hgb 12.5 g/dL (12.0-16.0) 01/06/20 09:39 Hct 37.7 % (36-46) 01/06/20 09:39 MCV 91.5 fL (80-100) 01/06/20 09:39 MCH 30.4 PG (26-34) 01/06/20 09:39 MCHC 33.2 % (30-36) 01/06/20 09:39 RDW 13.9 % (11.6-14.8) 01/06/20 09:39 Plt Count 126 X10^3/uL (150-400) L 01/06/20 09:39 Neut % (Auto) 70.4 % (50-75) 01/06/20 09:39 Lymph % (Auto) 12.5 % (25-40) L 01/06/20 09:39 [place] % (Auto) 15.7 % (3-14) H 01/06/20 09:39 Eos % (Auto) 0.8 % (2-4) L 01/06/20 09:39 Baso % (Auto) 0.6 % (0-2) 01/06/20 09:39 Neut # (Auto) 3000 /uL (2609-9672) 01/06/20 09:39 Lymph # (Auto) 500 /uL (7242-9293) L 01/06/20 09:39 [place] # (Auto) 700 /uL (0-900) 01/06/20 09:39 Eos # (Auto) 0 /uL (0-450) 01/06/20 09:39 Baso # (Auto) 0 /uL (0-100) 01/06/20 09:39 Total Counted 50 11/10/18 08:40 Seg Neutrophils % 34.0 % (38-70) L 11/10/18 08:40 Band Neutrophils % 4.0 % (3-7) 11/10/18 08:40 Lymphocytes % (Manual) 24.0 % (25-45) L 11/10/18 08:40 Atypical Lymphs % 4.0 % (-0) H 11/10/18 08:40 Monocytes % (Manual) 32.0 % (2-11) H 11/10/18 08:40 Eosinophils % (Manual) 6.0 % (2-4) H 09/08/18 14:10 Basophils % (Manual) 2.0 % (0-1) H 11/10/18 08:40 Metamyelocytes % 1.0 % (-0) H 08/11/18 10:20 Neutrophils # (Manual) 684 /uL (0823-6948) L 11/10/18 08:40 Smudge Cells 1+ H 08/05/18 14:30 Dohle Bodies 1+ H 08/11/18 10:20 Platelet Estimate Decreased on smear 08/11/18 10:20 Plt Morphology Comment 08/11/18 10:20 RBC Morphology Normal morphology 11/10/18 08:40 Hypochromasia 1+ H 07/28/18 11:02 Poikilocytosis 1+ H 08/05/18 14:30 Anisocytosis 1+ H 09/08/18 14:10 Microcytosis 1+ H 07/09/18 09:40 Ovalocytes 1+ H 07/28/18 11:02 ESR 30 MM/HR (0-20) H 01/06/20 09:39 PT 14.2 SECONDS (10.1-12.7) H 04/24/18 14:15 INR 1.2 (0.9-1.3) 04/24/18 14:15 Sodium 136 mmol/L (137-145) L 01/06/20 09:39 Potassium 3.9 mmol/L (3.4-5.1) 01/06/20 09:39 Chloride 100 mmol/L (98-107) 01/06/20 09:39 Carbon Dioxide 31 mmol/L (22-32) 01/06/20 09:39 BUN 17 mg/dL (7-17) 01/06/20 09:39 Creatinine 0.67 mg/dL (0.52-1.04) 01/06/20 09:39 Estimated GFR > 60.0 mL/min (>60) 01/06/20 09:39 BUN/Creatinine Ratio 25.4 (6-22) H 01/06/20 09:39 Glucose 95 mg/dL (80-110) 01/06/20 09:39 Calcium 9.2 mg/dL (8.4-10.2) 01/06/20 09:39 Total Bilirubin 0.6 mg/dL (0.2-1.3) 01/06/20 09:39 AST 37 IU/L (14-36) H 01/06/20 09:39 ALT 24 IU/L (<35) 01/06/20 09:39 Alkaline Phosphatase 103 U/L (38-126) 01/06/20 09:39 Lactate Dehydrogenase 825 U/L (313-618) H 01/06/20 09:39 Lxmk-0-Cgqgntsbkzggw 3.61 mg/L (< 2.52) H 05/11/19 12:31 Total Protein 6.6 g/dL (6.3-8.2) 01/06/20 09:39 Albumin 3.9 g/dL (3.5-5.0) 01/06/20 09:39 Globulin 2.7 g/dL (1.7-4.1) 01/06/20 09:39 Albumin/Globulin Ratio 1.4 (1.0-2.8) 01/06/20 09:39 Hep Bs Antigen Negative s/c (NEGATIVE) 05/15/18 14:32 Hep Bs Antibody Nonreactive (Nonreactive) 05/15/18 15:31 Hep B Core Total Ab Nonreactive (Nonreactive) 05/15/18 15:31 Hep B Core IgM Ab Nonreactive (Nonreactive) 05/15/18 15:31 Hepatitis C Antibody Negative s/c (NEGATIVE) 05/15/18 14:32 Assessment and Plan (1) Hodgkins lymphoma in relapse Overview: 1. Stage IV classical HD, diagnosed after skin punch biopsy of a lesion on the right superior upper chest on 05/15/2016. CT and PET scan staging showed extensive multiple superficial soft tissues of the skin and retroperitoneal lymphadenpathy (stage IV) 2. Patient received ABVD from 06/12/2016 through 12/04/2016. After 2 cycles, she had [place] 1 PET response, bleomycin was discontinued. 3. Relapsed in 02/2018, with B symptoms. Confirmed by CT guided retroperitoneal biopsy on 04/25/2018. PET showed above and below diaphragm involvement, with negative BMA/BX. Stage III. 4. Salvage Bendamustine/B-Vedotin x 6 cycles from 05/26/2018 to 10/21/2018. She now has recurrence of multiple skin nodules that look like her previous relapsed Hodgkin's. I discussed her pathology with Dr. Stevens who noted that the current biopsy looks similar to her previous skin biopsies. She was reluctant to call it Hodgkin's because of the lack of a lymph node to review but the morphologic appearance is similar. She previously saw Dr. Ayad Haider at [facility] in [place]. I contacted him a with the information and we made an urgent recur referral for her to see him, hopefully within the next week or so. She will have labs done today to include a CBC, metabolic panel, sedimentation rate and LDH. She also be set up for a PET scan for restaging. We discussed that additional treatment options are available including chemotherapy, immunotherapy, and stem cell transplant. She also may be eligible for a clinical trial. Although she is 74 years old she has a fit geriatric status. I explained that whatever we could do to treat her in town and save her trips to [place] we would be more than happy to do so. She and her friend understood this. She had multiple questions that were answered in detail. I personally spent 41 minutes in today's [id number] visit with greater than 50% of the time spent in counseling regarding the issues outlined above. (2) Follicular lymphoma Overview: Follicular lymphoma diagnosed by needle core biopsy of retroperitoneal lymph nodes on 12/27/2008 that showed atypical lymphoid infiltrate most consistent with follicular lymphoma. 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 FLIPI score was 2. She was consulted at [facility] and active surveillance was recommended. Assessment: Until now there has been no evidence to suggest recurrence or transformation of her underlying follicular lymphoma. The CT-guided biopsy of the retroperitoneal lymph node on April 25, 2018 showed no evidence of follicular lymphoma, but relapsed HD (see above) Plan: Clinical active surveillance.
--- NOTE | 2020-01-20 09:00 | ONC.SCHED ---
Samira [id number] codecorrect ok with DX C81.90.
--- NOTE | 2020-01-20 15:19 | PC.NURSE ---
CHEMO TEACHING: PATIENT WAS GIVEN PRINTED PATIENT INFO SHEET ABOUT KEYTRUDA FROM [employer]. PATIENT HAS HAD TREATMENT AT OUR CENTER BEFORE WE FOCUSED ON THE MEDICATION IN THIS TEACHING. IT WAS EXPLAINED TO HER HOW KEYTRUDA WORKS AN IMMUNOTHERAPY AND THAT THE SIDE EFFECTS CAN BE DUE TO IMMUNE CELLS HAVING AN EFFECT ON HEALTHY TISSUES WELL THE CANCER. SHE SHOULD WATCH OUT FOR SIGNS OF BOWEL INFLAMMATION SUCH FREQUENT DIAHRREA WITH PERHAPS MUCOUS OR BLOOD IN THE STOOL, NEW COUGH, SOB, INCREASED CONGESTION, ITCHING/REDNESS OF SKIN, HEADACHE/DIZZINESS, INCREASED THIRST AND HUNGER, YELLOWING OF EYES, BURNING OR PAIN ON URINATION-ALL THESE SYMPTOMS SHOULD BE REPORTED TO TRIAGE NURSE OR ONCOLOGIST TELEVISION REPAIR TEACHER WELL ANY OTHER NEW SYMPTOMS. SHE WAS INSTRUCTED TO GO TO ER FOR SEVERE AND UNRELENTING CHEST PAIN AND SOB, SIGNS OF STROKE OR FEVER ABOVE 100.4. PATIENT WAS INFORMED THAT MEDICATION WILL BE GIVEN OVER ONE HALF HOUR WITHOUT PREMEDS. ALL QUESTIONS WERE ANSWERED AND PATIENT ENCOURAGED TO ASK ANY OTHER QUESTIONS WHILE HERE FOR [place] OR BY CALLING IN. SHE VOICED UNDERSTANDING AND WILL BE HERE TOMORROW AT 8:30. CONSENT FORM NEEDS TO BE SIGNED AT THAT TIME.
[2020-01-21 08:51] LABS: Add Manual Diff / Slide Review NO; Basophils Absolute Auto 100 /uL (0-100); Basophils Percent Auto 0.9 % (0-2); Eosinophils Absolute Auto 100 /uL (0-450); Eosinophils Percent Auto 1.6 % (2-4); Hematocrit 36.7 % (36-46); Lymphocytes Absolute Auto 1400 /uL (1100-4500); Lymphocytes Percent Auto 24.1 % (25-40); Mean Corpuscular HGB Conc 32.7 % (30-36); Mean Corpuscular Hemoglobin 29.7 PG (26-34); Monocytes Absolute Auto 700 /uL (0-900); Monocytes Percent Auto 13.1 % (3-14); Neutrophils Absolute Auto 3400 /uL (1500-7000); Neutrophils Percent Auto 60.3 % (50-75); Platelet Count 155 X10^3/uL (150-400); Red Blood Cell Count 4.04 X10^6/uL (4.0-5.2); Red Cell Distribution Width 13.6 % (11.6-14.8); White Blood Cell Count 5.7 X10^3/uL (4.5-11.0)
[2020-01-21 09:04] VITALS: BP 129/73; PULSE 97; RESP 16; TEMP 36.9; O2SAT 99
[2020-01-21 09:05] LABS: Alanine Aminotransferase 21 IU/L (<35); Albumin 3.6 g/dL (3.5-5.0); Albumin Globulin Ratio 1.3 (1.0-2.8); Alkaline Phosphatase 90 U/L (38-126); Aspartate Aminotransferase 42 IU/L (14-36); Bilirubin Total 0.6 mg/dL (0.2-1.3); Blood Urea Nitrogen 12 mg/dL (7-17); Calcium 8.9 mg/dL (8.4-10.2); Carbon Dioxide 30 mmol/L (22-32); Chloride 103 mmol/L (98-107); Estimated Glomerular Filt Rate > 60.0 mL/min (>60); Globulin 2.8 g/dL (1.7-4.1); Glucose 111 mg/dL (80-110); HEMOLYSIS 23 (0-50); Potassium 3.6 mmol/L (3.4-5.1); Sodium 137 mmol/L (137-145); Total Protein 6.4 g/dL (6.3-8.2)
[2020-01-21 09:34] LABS: Cortisol Random 20.9 ug/dL
[2020-01-21] MEDS: PEMBROLIZUMAB 200 MG in SODIUM CHLORIDE 0.9% (CHEMO) 100 ML 216 ML IV (09:48)
[2020-01-21] MEDS: SODIUM CHLORIDE 0.9% 100 ML 21 ML IV (09:48)
[2020-01-21 10:08] LABS: Free T4, Direct Thyroxine 1.47 ng/dL (0.78-2.19)
[2020-01-21 10:22] LABS: Thyroid Stimulating Hormone 2.32 uIU/mL (0.47-4.68)
--- NOTE | 2020-01-25 08:35 | PC.NURSE ---
Pt called to report an ER visit on 01/21/20 with fever and nausea. Pt was concerned about keytruda rxn and called the on-call doc, but got [facility] instead and was told that they could not help her. Pt monitored s/s over the weekend and was able to eat and drink normally with not fever spike above 100.4. This RN counseled her to continue to monitor temp and other s/s and to call if health status changes. Pt verbalized understanding. Making provider aware with this note.
[2020-01-26 14:57] VITALS: BP 115/70; PULSE 94; RESP 16; TEMP 37.7; O2SAT 99
--- NOTE | 2020-01-26 15:09 | ONC.PN ---
PN -Subjective Interval history: Ms. Arredondo presents today for an unscheduled follow-up visit for her Hodgkin's disease lymphoma for which she is on Keytruda, started 5 days ago. She is now 74 years old. She received presented in December of 2008 with retroperitoneal lymphadenopathy. Biopsy showed follicular lymphoma. Bone marrow showed low-level involvement. She was seen by Dr. Seth Baker at that time and also by Dr. Lillie Mays at the [facility]. Observation was recommended. In April of 2016 she developed multiple raised, red, tender skin lesions. Biopsy showed classic Hodgkin's disease. PET scan confirmed stage IV disease. She was treated with ABVD times 2 cycles and a follow-up PET scan showed Deauville 1. She went on to get 4 additional cycles of AVD and was subsequently watched off treatment. In February of 2018 she developed night sweats. A PET scan showed retroperitoneal, mediastinal and mesenteric lymphadenopathy with Deauville 5. Biopsy of a retroperitoneal lymph node in April 2018 showed classical Hodgkin's disease. Bone marrow was negative. She was seen in consultation at the [facility] by the transplant team. She also saw Dr. Ayad Haider at [facility] with the consensus that that she would not undergo transplant but that immunotherapy could be considered were she to relapse in the future. She was treated with bendamustine and brentuximab vedotin x6 which he completed October 21, 2018. A PET scan in November 05, 2018 showed a stable focus of increased uptake in the right pelvis with no evidence of mass. She was seen for follow-up in August and had a CT scan done. At that time it showed a 3 mm lesion in the costophrenic angle posteriorly in the right lower lobe as well as a 1.3 cm lesion in the left lobe of the liver, possibly hemangioma. She was counseled about options and elected for 3 month follow-up scan. This was done in November and showed resolution of the lung and liver lesions and no evidence of disease progression. She was given a 3 month follow-up appointment. She subsequent developed multiple new skin lesions. Biopsy showed recurrent Hodgkin's lymphoma. She was seen in consultation by Dr. Ayad riggs at [facility] and started on Keytruda. She got her 1st dose last week on January 20. She states that she developed a fever up to 102? the evening of her treatment. She also had nausea and vomiting. She went to the emergency room and laboratory studies were unrevealing. She had a repeat episode the next day and was treated with Tylenol at home and this helped. Her nausea vomiting has been treated with Zofran and this has helped. She notes increase in the size and number of skin nodules. She has a spot that is a soft tissue density developing in the inner canthus of her left eye and medial lower lid. Her night sweats are gone. She continues to have fatigue which has not changed. She has some joint aching that is unchanged and was present before she started Keytruda. She feels generally somewhat lightheaded. She had a cough yesterday but it is better today. She has not had any falls. She feels generally weak and tired. All other systems are negative. Past medical history 1. Supraventricular tachycardia for which he takes diltiazem 2. She denies high blood pressure, diabetes, rheumatic fever, tuberculosis, heart attacks, strokes, stomach ulcers. 3. History of walking pneumonia twice in the past 4. 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 Previous surgeries include an operation on her finger and Port-A-Cath placement and removal. She has also had a tonsillectomy 6. Her grandfather had bladder tumors but family history is otherwise negative for malignancy 7. 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 She lives with her adult son. She is not a smoker or drinker. 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 She is accompanied today by her good friend. - Patient Self-Reported Symptoms SR Constitution: Night Sweats SR ears, nose, mouth, throat issues: Cough SR respiratory issues: Cough SR Cardiovascular issues: Palpitations SR Gastrointestinal issues: Change in bowel pattern, Constipation SR Neuro issues: Numbness or tingling, Difficulty balancing SR Hematologic issues: Swollen lymph nodes SR Endocrine issues: Hot flashes Home Medications and Allergies Home Medications Medication Instructions Recorded Confirmed Type Probiotic 1 cap PO DAILY #0 07/04/12 01/26/20 History coQ10 (ubiquinol) 250 mg PO DAILY #0 07/04/12 01/26/20 History multivitamin 1 tab PO DAILY #0 07/04/12 01/26/20 History Protandim 1 dose PO DAILY 05/15/18 01/26/20 History Vitamin D Liquid 1 dose TOPICAL DAILY 05/15/18 01/26/20 History mupirocin 2 % topical ointment 1 applic TOP BID #30 gram 08/11/18 01/26/20 Rx Vadim Stress 1 tab DAILY 08/25/18 01/26/20 History ascorbic acid (vitamin C) [Vitamin 1,000 mg PO DAILY 08/25/18 01/26/20 History C] turmeric (bulk) [Curcumin] 1 % DAILY 08/25/18 01/26/20 History diltiazem HCl 180 mg 180 mg PO QPM #90 cap 06/26/19 01/26/20 Rx capsule,extended release 24 hr Allergies Allergy/AdvReac Type Severity Reaction Status Date / Time NSAIDS (Non-Steroidal Allergy Intermediate HIVES Verified 01/21/20 14:37 Anti-Inflamma [NSAIDS (NON-STEROIDAL ANTI-INFLAMMA] amoxicillin [AMOXICILLIN] Allergy Mild rash Verified 01/21/20 14:37 aspirin Allergy Verified 01/21/20 14:37 Exam Vital signs: Vital Signs Temp Pulse Resp BP Pulse Ox 01/26/20 14:57 99.8 F H 94 H 16 115/70 99 Intake and Output 01/25/20 01/26/20 01/26/20 23:59 07:59 15:59 Other: Weight 52.3 kg Patient Weight 01/26/20 23:59 Weight 52.3 kg Narrative: She was awake, alert and oriented x3. She was in no acute distress. She had multiple skin nodules that were red, raised, and some had a black eschar. They were larger and more numerous than at the time of her previous visit. None appear to be secondarily infected. Results - Labs Laboratory Last Values WBC 5.7 X10^3/uL (4.5-11.0) 01/21/20 08:35 RBC 4.04 X10^6/uL (4.0-5.2) 01/21/20 08:35 Hgb 12.0 g/dL (12.0-16.0) 01/21/20 08:35 Hct 36.7 % (36-46) 01/21/20 08:35 MCV 91.0 fL (80-100) 01/21/20 08:35 MCH 29.7 PG (26-34) 01/21/20 08:35 MCHC 32.7 % (30-36) 01/21/20 08:35 RDW 13.6 % (11.6-14.8) 01/21/20 08:35 Plt Count 155 X10^3/uL (150-400) 01/21/20 08:35 Neut % (Auto) 60.3 % (50-75) 01/21/20 08:35 Lymph % (Auto) 24.1 % (25-40) L 01/21/20 08:35 [place] % (Auto) 13.1 % (3-14) 01/21/20 08:35 Eos % (Auto) 1.6 % (2-4) L 01/21/20 08:35 Baso % (Auto) 0.9 % (0-2) 01/21/20 08:35 Neut # (Auto) 3400 /uL (7437-4715) 01/21/20 08:35 Lymph # (Auto) 1400 /uL (8910-5329) 01/21/20 08:35 [place] # (Auto) 700 /uL (0-900) 01/21/20 08:35 Eos # (Auto) 100 /uL (0-450) 01/21/20 08:35 Baso # (Auto) 100 /uL (0-100) 01/21/20 08:35 Total Counted 50 11/10/18 08:40 Seg Neutrophils % 34.0 % (38-70) L 11/10/18 08:40 Band Neutrophils % 4.0 % (3-7) 11/10/18 08:40 Lymphocytes % (Manual) 24.0 % (25-45) L 11/10/18 08:40 Atypical Lymphs % 4.0 % (-0) H 11/10/18 08:40 Monocytes % (Manual) 32.0 % (2-11) H 11/10/18 08:40 Eosinophils % (Manual) 6.0 % (2-4) H 09/08/18 14:10 Basophils % (Manual) 2.0 % (0-1) H 11/10/18 08:40 Metamyelocytes % 1.0 % (-0) H 08/11/18 10:20 Neutrophils # (Manual) 684 /uL (9642-3306) L 11/10/18 08:40 Smudge Cells 1+ H 08/05/18 14:30 Dohle Bodies 1+ H 08/11/18 10:20 Platelet Estimate Decreased on smear 08/11/18 10:20 Plt Morphology Comment 08/11/18 10:20 RBC Morphology Normal morphology 11/10/18 08:40 Hypochromasia 1+ H 07/28/18 11:02 Poikilocytosis 1+ H 08/05/18 14:30 Anisocytosis 1+ H 09/08/18 14:10 Microcytosis 1+ H 07/09/18 09:40 Ovalocytes 1+ H 07/28/18 11:02 ESR 30 MM/HR (0-20) H 01/06/20 09:39 PT 14.2 SECONDS (10.1-12.7) H 04/24/18 14:15 INR 1.2 (0.9-1.3) 04/24/18 14:15 Sodium 137 mmol/L (137-145) 01/21/20 08:35 Potassium 3.6 mmol/L (3.4-5.1) 01/21/20 08:35 Chloride 103 mmol/L (98-107) 01/21/20 08:35 Carbon Dioxide 30 mmol/L (22-32) 01/21/20 08:35 BUN 12 mg/dL (7-17) 01/21/20 08:35 Creatinine 0.60 mg/dL (0.52-1.04) 01/21/20 08:35 Estimated GFR > 60.0 mL/min (>60) 01/21/20 08:35 BUN/Creatinine Ratio 20.0 (6-22) 01/21/20 08:35 Glucose 111 mg/dL (80-110) H 01/21/20 08:35 Calcium 8.9 mg/dL (8.4-10.2) 01/21/20 08:35 Total Bilirubin 0.6 mg/dL (0.2-1.3) 01/21/20 08:35 AST 42 IU/L (14-36) H 01/21/20 08:35 ALT 21 IU/L (<35) 01/21/20 08:35 Alkaline Phosphatase 90 U/L (38-126) 01/21/20 08:35 Lactate Dehydrogenase 825 U/L (313-618) H 01/06/20 09:39 Ltzi-2-Jomcqqgjvyyjx 3.61 mg/L (< 2.52) H 05/11/19 12:31 Total Protein 6.4 g/dL (6.3-8.2) 01/21/20 08:35 Albumin 3.6 g/dL (3.5-5.0) 01/21/20 08:35 Globulin 2.8 g/dL (1.7-4.1) 01/21/20 08:35 Albumin/Globulin Ratio 1.3 (1.0-2.8) 01/21/20 08:35 TSH 2.32 uIU/mL (0.47-4.68) 01/21/20 08:35 Free T4 1.47 ng/dL (0.78-2.19) 01/21/20 08:35 Random Cortisol 20.9 ug/dL 01/21/20 08:35 Hep Bs Antigen Negative s/c (NEGATIVE) 05/15/18 14:32 Hep Bs Antibody Nonreactive (Nonreactive) 05/15/18 15:31 Hep B Core Total Ab Nonreactive (Nonreactive) 05/15/18 15:31 Hep B Core IgM Ab Nonreactive (Nonreactive) 05/15/18 15:31 Hepatitis C Antibody Negative s/c (NEGATIVE) 05/15/18 14:32 Assessment and Plan (1) Hodgkins lymphoma in relapse Ms. Arredondo had constitutional symptoms after last week's Keytruda injection. These included fevers up to 102? and nausea vomiting. She also has had ongoing malaise. Her symptoms have responded to symptomatic management with Tylenol and Zofran. Her skin lesions are also more prominent than they were. Some of them have an eschar. Of note is that her night sweats which had been drenching and irregular nightly occurrence prior to starting Keytruda have resolved. We discussed the fact that we can try to reduce the risk of infusion reactions in the future with Tylenol, Benadryl, and Zofran. We reviewed the fact that her skin lesions getting bigger could represent either progression or pseudoprogression. Patients with pseudoprogression typically feels fairly good. Accordingly, her course over the next 2 weeks will be important in determining our next step in terms of treatment. Plan to see her back in a week for follow-up and review things at that time. She was advised to call if any other issues arise in the interim. I also forwarded the information from today's visit to her oncologist at [facility] in [place], Dr. Ayad Haider. I reassured the patient that we will keep him in the loop regarding her management decisions. She and her friend had multiple questions that were answered in detail and I personally spent 26 minutes in today's [id number] visit with greater than 50% of the time spent in counseling on the issues outlined above. (2) Follicular lymphoma Overview: Follicular lymphoma diagnosed by needle core biopsy of retroperitoneal lymph nodes on 12/27/2008 that showed atypical lymphoid infiltrate most consistent with follicular lymphoma. 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 FLIPI score was 2. She was consulted at [facility] and active surveillance was recommended. Assessment: Until now there has been no evidence to suggest recurrence or transformation of her underlying follicular lymphoma. The CT-guided biopsy of the retroperitoneal lymph node on April 25, 2018 showed no evidence of follicular lymphoma, but relapsed HD (see above) Plan: Clinical active surveillance.
[2020-02-03 11:11] VITALS: BP 101/61; PULSE 83; RESP 20; TEMP 37.1; O2SAT 99
--- NOTE | 2020-02-03 17:26 | ONC.PN ---
PN -Subjective Interval history: Ms. Arredondo presents today for an unscheduled follow-up visit for her Hodgkin's disease lymphoma for which she is on Keytruda, started 5 days ago. She is now 74 years old. She received presented in December of 2008 with retroperitoneal lymphadenopathy. Biopsy showed follicular lymphoma. Bone marrow showed low-level involvement. She was seen by Dr. Seth Baker at that time and also by Dr. Lillie Mays at the [facility]. Observation was recommended. In April of 2016 she developed multiple raised, red, tender skin lesions. Biopsy showed classic Hodgkin's disease. PET scan confirmed stage IV disease. She was treated with ABVD times 2 cycles and a follow-up PET scan showed Deauville 1. She went on to get 4 additional cycles of AVD and was subsequently watched off treatment. In February of 2018 she developed night sweats. A PET scan showed retroperitoneal, mediastinal and mesenteric lymphadenopathy with Deauville 5. Biopsy of a retroperitoneal lymph node in April 2018 showed classical Hodgkin's disease. Bone marrow was negative. She was seen in consultation at the [facility] by the transplant team. She also saw Dr. Ayad Haider at [facility] with the consensus that that she would not undergo transplant but that immunotherapy could be considered were she to relapse in the future. She was treated with bendamustine and brentuximab vedotin x6 which he completed October 21, 2018. A PET scan in November 05, 2018 showed a stable focus of increased uptake in the right pelvis with no evidence of mass. She was seen for follow-up in August and had a CT scan done. At that time it showed a 3 mm lesion in the costophrenic angle posteriorly in the right lower lobe as well as a 1.3 cm lesion in the left lobe of the liver, possibly hemangioma. She was counseled about options and elected for 3 month follow-up scan. This was done in November and showed resolution of the lung and liver lesions and no evidence of disease progression. She was given a 3 month follow-up appointment. She subsequent developed multiple new skin lesions. Biopsy showed recurrent Hodgkin's lymphoma. She was seen in consultation by Dr. Ayad riggs at [facility] and started on Keytruda. She got her 1st dose on January 20. She states that she developed a fever up to 102? the evening of her treatment. She also had nausea and vomiting. She went to the emergency room and laboratory studies were unrevealing. She had a repeat episode the next day and was treated with Tylenol at home and this helped. Her nausea vomiting has been treated with Zofran and this has helped. She notes increase in the size and number of skin nodules. She has a spot that is a soft tissue density developing in the inner canthus of her left eye and medial lower lid. Her night sweats are gone. She continues to have fatigue which has not changed. She has some joint aching that is unchanged and was present before she started Keytruda. She feels generally somewhat lightheaded. She had a cough yesterday but it is better today. She has not had any falls. She feels generally weak and tired. She had 2 episodes of SVT this past week for which he went to the emergency room. She was treated with adenosine and diltiazem with return to sinus rhythm. She has a history of SVT and has seen Cardiology in the past. She is chronically on diltiazem. She has not had any other chest pain, shortness of breath. She notes double vision when she looks down has an ophthalmology appointment tomorrow. She has not had any numbness or tingling. She thinks that she has several small new skin lesions. Some of the older lesions have regressed. A lesion on her right cheek and the inner canthus of her left I have gotten a little bigger. She continues to have fevers up to 101 each day but no more night sweats. All other systems are negative. Past medical history 1. Supraventricular tachycardia for which he takes diltiazem 2. She denies high blood pressure, diabetes, rheumatic fever, tuberculosis, heart attacks, strokes, stomach ulcers. 3. History of walking pneumonia twice in the past 4. 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 Previous surgeries include an operation on her finger and Port-A-Cath placement and removal. She has also had a tonsillectomy 6. Her grandfather had bladder tumors but family history is otherwise negative for malignancy 7. 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 She lives with her adult son. She is not a smoker or drinker. 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 She is accompanied today by her good friend. - Patient Self-Reported Symptoms SR Constitution: Fever, Chills SR eye issues: Double vision SR ears, nose, mouth, throat issues: Cough SR respiratory issues: Cough SR Cardiovascular issues: Palpitations SR Gastrointestinal issues: Change in bowel pattern, Constipation SR Neuro issues: Numbness or tingling, Difficulty balancing SR Hematologic issues: Swollen lymph nodes SR Endocrine issues: Hot flashes Home Medications and Allergies Home Medications Medication Instructions Recorded Confirmed Type Probiotic 1 cap PO DAILY #0 07/04/12 01/26/20 History coQ10 (ubiquinol) 250 mg PO DAILY #0 07/04/12 01/26/20 History multivitamin 1 tab PO DAILY #0 07/04/12 01/26/20 History Protandim 1 dose PO DAILY 05/15/18 01/26/20 History Vitamin D Liquid 1 dose TOPICAL DAILY 05/15/18 01/26/20 History mupirocin 2 % topical ointment 1 applic TOP BID #30 gram 08/11/18 01/26/20 Rx Vadim Stress 1 tab DAILY 08/25/18 01/26/20 History ascorbic acid (vitamin C) [Vitamin 1,000 mg PO DAILY 08/25/18 01/26/20 History C] turmeric (bulk) [Curcumin] 1 % DAILY 08/25/18 01/26/20 History diltiazem HCl 180 mg 180 mg PO QPM #90 cap 06/26/19 01/26/20 Rx capsule,extended release 24 hr Allergies Allergy/AdvReac Type Severity Reaction Status Date / Time NSAIDS (Non-Steroidal Allergy Intermediate HIVES Verified 01/21/20 14:37 Anti-Inflamma [NSAIDS (NON-STEROIDAL ANTI-INFLAMMA] amoxicillin [AMOXICILLIN] Allergy Mild rash Verified 01/21/20 14:37 aspirin Allergy Verified 01/21/20 14:37 Exam Vital signs: Vital Signs Temp Pulse Resp BP Pulse Ox 02/03/20 11:11 98.7 F 83 20 101/61 99 Intake and Output 02/03/20 02/03/20 02/03/20 07:59 15:59 23:59 Other: Weight 52.3 kg Patient Weight 02/03/20 23:59 Weight 52.3 kg Narrative: She was awake, alert and oriented x3. She was in no acute distress. She had multiple skin nodules that were red, raised, and some had a black eschar. They were larger and more numerous than at the time of her previous visit. None appear to be secondarily infected. Lesions on her legs look better and were flatter. The lesions on her trunk and neck continue to show an eschar and appeared similar in size. The new lesions she pointed out were small, less than a cm with no overlying scar. Lungs were clear. Results - Labs Laboratory Last Values WBC 5.7 X10^3/uL (4.5-11.0) 01/21/20 08:35 RBC 4.04 X10^6/uL (4.0-5.2) 01/21/20 08:35 Hgb 12.0 g/dL (12.0-16.0) 01/21/20 08:35 Hct 36.7 % (36-46) 01/21/20 08:35 MCV 91.0 fL (80-100) 01/21/20 08:35 MCH 29.7 PG (26-34) 01/21/20 08:35 MCHC 32.7 % (30-36) 01/21/20 08:35 RDW 13.6 % (11.6-14.8) 01/21/20 08:35 Plt Count 155 X10^3/uL (150-400) 01/21/20 08:35 Neut % (Auto) 60.3 % (50-75) 01/21/20 08:35 Lymph % (Auto) 24.1 % (25-40) L 01/21/20 08:35 Parker % (Auto) 13.1 % (3-14) 01/21/20 08:35 Eos % (Auto) 1.6 % (2-4) L 01/21/20 08:35 Baso % (Auto) 0.9 % (0-2) 01/21/20 08:35 Neut # (Auto) 3400 /uL (9105-4271) 01/21/20 08:35 Lymph # (Auto) 1400 /uL (9768-5222) 01/21/20 08:35 Parker # (Auto) 700 /uL (0-900) 01/21/20 08:35 Eos # (Auto) 100 /uL (0-450) 01/21/20 08:35 Baso # (Auto) 100 /uL (0-100) 01/21/20 08:35 Total Counted 50 11/10/18 08:40 Seg Neutrophils % 34.0 % (38-70) L 11/10/18 08:40 Band Neutrophils % 4.0 % (3-7) 11/10/18 08:40 Lymphocytes % (Manual) 24.0 % (25-45) L 11/10/18 08:40 Atypical Lymphs % 4.0 % (-0) H 11/10/18 08:40 Monocytes % (Manual) 32.0 % (2-11) H 11/10/18 08:40 Eosinophils % (Manual) 6.0 % (2-4) H 09/08/18 14:10 Basophils % (Manual) 2.0 % (0-1) H 11/10/18 08:40 Metamyelocytes % 1.0 % (-0) H 08/11/18 10:20 Neutrophils # (Manual) 684 /uL (2219-1125) L 11/10/18 08:40 Smudge Cells 1+ H 08/05/18 14:30 Dohle Bodies 1+ H 08/11/18 10:20 Platelet Estimate Decreased on smear 08/11/18 10:20 Plt Morphology Comment 08/11/18 10:20 RBC Morphology Normal morphology 11/10/18 08:40 Hypochromasia 1+ H 07/28/18 11:02 Poikilocytosis 1+ H 08/05/18 14:30 Anisocytosis 1+ H 09/08/18 14:10 Microcytosis 1+ H 07/09/18 09:40 Ovalocytes 1+ H 07/28/18 11:02 ESR 30 MM/HR (0-20) H 01/06/20 09:39 PT 14.2 SECONDS (10.1-12.7) H 04/24/18 14:15 INR 1.2 (0.9-1.3) 04/24/18 14:15 Sodium 137 mmol/L (137-145) 01/21/20 08:35 Potassium 3.6 mmol/L (3.4-5.1) 01/21/20 08:35 Chloride 103 mmol/L (98-107) 01/21/20 08:35 Carbon Dioxide 30 mmol/L (22-32) 01/21/20 08:35 BUN 12 mg/dL (7-17) 01/21/20 08:35 Creatinine 0.60 mg/dL (0.52-1.04) 01/21/20 08:35 Estimated GFR > 60.0 mL/min (>60) 01/21/20 08:35 BUN/Creatinine Ratio 20.0 (6-22) 01/21/20 08:35 Glucose 111 mg/dL (80-110) H 01/21/20 08:35 Calcium 8.9 mg/dL (8.4-10.2) 01/21/20 08:35 Total Bilirubin 0.6 mg/dL (0.2-1.3) 01/21/20 08:35 AST 42 IU/L (14-36) H 01/21/20 08:35 ALT 21 IU/L (<35) 01/21/20 08:35 Alkaline Phosphatase 90 U/L (38-126) 01/21/20 08:35 Lactate Dehydrogenase 825 U/L (313-618) H 01/06/20 09:39 Fiaz-9-Ckfnbfyjiogtg 3.61 mg/L (< 2.52) H 05/11/19 12:31 Total Protein 6.4 g/dL (6.3-8.2) 01/21/20 08:35 Albumin 3.6 g/dL (3.5-5.0) 01/21/20 08:35 Globulin 2.8 g/dL (1.7-4.1) 01/21/20 08:35 Albumin/Globulin Ratio 1.3 (1.0-2.8) 01/21/20 08:35 TSH 2.32 uIU/mL (0.47-4.68) 01/21/20 08:35 Free T4 1.47 ng/dL (0.78-2.19) 01/21/20 08:35 Random Cortisol 20.9 ug/dL 01/21/20 08:35 Hep Bs Antigen Negative s/c (NEGATIVE) 05/15/18 14:32 Hep Bs Antibody Nonreactive (Nonreactive) 05/15/18 15:31 Hep B Core Total Ab Nonreactive (Nonreactive) 05/15/18 15:31 Hep B Core IgM Ab Nonreactive (Nonreactive) 05/15/18 15:31 Hepatitis C Antibody Negative s/c (NEGATIVE) 05/15/18 14:32 Assessment and Plan (1) Hodgkins lymphoma in relapse Ms. Arredondo had constitutional symptoms after her 1st Keytruda injection. These included fevers up to 102? and nausea vomiting. She also has had ongoing malaise. Her symptoms have responded to symptomatic management with Tylenol and Zofran. Her skin lesions are also more prominent than they were. Some of them have an eschar. Of note is that her night sweats which had been drenching and irregular nightly occurrence prior to starting Keytruda have resolved. We discussed the fact that we can try to reduce the risk of infusion reactions in the future with Tylenol, Benadryl, and Zofran. We reviewed the fact that her skin lesions getting bigger could represent either progression or pseudoprogression. Patients with pseudoprogression typically feels fairly good. Accordingly, her course over the next 2 weeks will be important in determining our next step in terms of treatment. She also had 2 episodes of SVT this past week. This is not a new thing for her. I reviewed her case with Dr. Ayad jorge at [facility]. He agreed with premedicating her next treatment with Tylenol, Benadryl, Zofran and dexamethasone 4 mg. Will monitor her situation closely for evidence of additional tumor flare and possible disease progression. She will call if any other issues arise in the interim. She and her friend had multiple questions that were answered in detail and I personally spent 27 minutes in today's [id number] visit with greater than 50% of the time spent in counseling on the issues outlined above. (2) Follicular lymphoma Overview: Follicular lymphoma diagnosed by needle core biopsy of retroperitoneal lymph nodes on 12/27/2008 that showed atypical lymphoid infiltrate most consistent with follicular lymphoma. 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 FLIPI score was 2. She was consulted at [facility] and active surveillance was recommended. Assessment: Until now there has been no evidence to suggest recurrence or transformation of her underlying follicular lymphoma. The CT-guided biopsy of the retroperitoneal lymph node on April 25, 2018 showed no evidence of follicular lymphoma, but relapsed HD (see above) Plan: Clinical active surveillance.
--- NOTE | 2020-02-09 13:42 | ONC.SCHED ---
Addendum entered by Dimple Ken 02/09/20 13:43: Brentuximab Original Note: Code checked new medication for 02/10/20
[2020-02-10 08:48] VITALS: BP 119/79; PULSE 72; RESP 18; TEMP 37.8; O2SAT 97
[2020-02-10 08:48] LABS: Alanine Aminotransferase 22 IU/L (<35); Albumin 3.3 g/dL (3.5-5.0); Albumin Globulin Ratio 1.2 (1.0-2.8); Alkaline Phosphatase 86 U/L (38-126); Aspartate Aminotransferase 40 IU/L (14-36); BUN Creatinine Ratio 23.2 (6-22); Bilirubin Total 0.5 mg/dL (0.2-1.3); Blood Urea Nitrogen 13 mg/dL (7-17); Calcium 9.2 mg/dL (8.4-10.2); Carbon Dioxide 32 mmol/L (22-32); Chloride 103 mmol/L (98-107); Estimated Glomerular Filt Rate > 60.0 mL/min (>60); Globulin 2.7 g/dL (1.7-4.1); Glucose 88 mg/dL (80-110); HEMOLYSIS < 15 (0-50); Potassium 3.7 mmol/L (3.4-5.1); Sodium 137 mmol/L (137-145)
[2020-02-10 08:55] LABS: Add Manual Diff / Slide Review NO; Basophils Absolute Auto 0 /uL (0-100); Basophils Percent Auto 0.7 % (0-2); Eosinophils Absolute Auto 100 /uL (0-450); Eosinophils Percent Auto 1.3 % (2-4); Hematocrit 32.8 % (36-46); Hemoglobin 10.7 g/dL (12.0-16.0); Lymphocytes Absolute Auto 1000 /uL (1100-4500); Lymphocytes Percent Auto 19.8 % (25-40); Mean Corpuscular HGB Conc 32.5 % (30-36); Mean Corpuscular Hemoglobin 29.1 PG (26-34); Mean Corpuscular Volume 89.5 fL (80-100); Monocytes Absolute Auto 800 /uL (0-900); Monocytes Percent Auto 15.1 % (3-14); Neutrophils Absolute Auto 3200 /uL (1500-7000); Neutrophils Percent Auto 63.1 % (50-75); Platelet Count 131 X10^3/uL (150-400); Red Blood Cell Count 3.66 X10^6/uL (4.0-5.2); Red Cell Distribution Width 14.4 % (11.6-14.8); White Blood Cell Count 5.1 X10^3/uL (4.5-11.0)
--- NOTE | 2020-02-10 09:00 | ONC.PN ---
PN -Subjective Interval history: Ms. Arredondo presents today for an unscheduled follow-up visit for her Hodgkin's disease lymphoma for which she is on Keytruda, started 5 days ago. She is now 74 years old. She received presented in December of 2008 with retroperitoneal lymphadenopathy. Biopsy showed follicular lymphoma. Bone marrow showed low-level involvement. She was seen by Dr. Seth Baker at that time and also by Dr. Lillie Mays at the [facility]. Observation was recommended. In April of 2016 she developed multiple raised, red, tender skin lesions. Biopsy showed classic Hodgkin's disease. PET scan confirmed stage IV disease. She was treated with ABVD times 2 cycles and a follow-up PET scan showed Deauville 1. She went on to get 4 additional cycles of AVD and was subsequently watched off treatment. In February of 2018 she developed night sweats. A PET scan showed retroperitoneal, mediastinal and mesenteric lymphadenopathy with Deauville 5. Biopsy of a retroperitoneal lymph node in April 2018 showed classical Hodgkin's disease. Bone marrow was negative. She was seen in consultation at the [facility] by the transplant team. She also saw Dr. Ayad Haider at [facility] with the consensus that that she would not undergo transplant but that immunotherapy could be considered were she to relapse in the future. She was treated with bendamustine and brentuximab vedotin x6 which he completed October 21, 2018. A PET scan in November 05, 2018 showed a stable focus of increased uptake in the right pelvis with no evidence of mass. She was seen for follow-up in August and had a CT scan done. At that time it showed a 3 mm lesion in the costophrenic angle posteriorly in the right lower lobe as well as a 1.3 cm lesion in the left lobe of the liver, possibly hemangioma. She was counseled about options and elected for 3 month follow-up scan. This was done in November and showed resolution of the lung and liver lesions and no evidence of disease progression. She was given a 3 month follow-up appointment. She subsequent developed multiple new skin lesions. Biopsy showed recurrent Hodgkin's lymphoma. She was seen in consultation by Dr. Ayad riggs at [facility] and started on Keytruda. She got her 1st dose on January 20. She states that she developed a fever up to 102? the evening of her treatment. She also had nausea and vomiting. She went to the emergency room and laboratory studies were unrevealing. She had a repeat episode the next day and was treated with Tylenol at home and this helped. Her nausea vomiting has been treated with Zofran and this has helped. She notes increase in the size and number of skin nodules. She has a spot that is a soft tissue density developing in the inner canthus of her left eye and medial lower lid. Her night sweats are gone. She continues to have fatigue which has not changed. She has some joint aching that is unchanged and was present before she started Keytruda. She feels generally somewhat lightheaded. She had a cough yesterday but it is better today. She has not had any falls. She feels generally weak and tired. She had 2 episodes of SVT this past week for which he went to the emergency room. She was treated with adenosine and diltiazem with return to sinus rhythm. She has a history of SVT and has seen Cardiology in the past. She is chronically on diltiazem. She has not had any other chest pain, shortness of breath. She notes double vision when she looks down has an ophthalmology appointment tomorrow. She has not had any numbness or tingling. She thinks that she has several small new skin lesions. Some of the older lesions have regressed. A lesion on her right cheek and the inner canthus of her left I have gotten a little bigger. She continues to have fevers up to 101 each day but no more night sweats. About 5 days ago she developed increasing facial swelling. She saw Dr. Haider at [facility] 2 days ago. He recommended switching to brentuximab. In addition, her pathology review from [facility] came back suggesting large B-cell component non-Hodgkin's lymphoma but with different results in different skin biopsies. I spoke to Dr. riggs yesterday and he and his pathology team are reviewing all of these findings with the intention of incorporating that information in to an updated treatment plan. The patient has an appointment to see Dr. Haider in 2 weeks. Today she notes continued malaise, fatigue, night sweats, fevers, double vision, cough without shortness of breath, increased facial swelling though it is a little better today than it was 2 days ago. She does not have any numbness or tingling. All other systems are negative. She has not had any further attacks of SVT. Past medical history 1. Supraventricular tachycardia for which he takes diltiazem 2. She denies high blood pressure, diabetes, rheumatic fever, tuberculosis, heart attacks, strokes, stomach ulcers. 3. History of walking pneumonia twice in the past 4. 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 Previous surgeries include an operation on her finger and Port-A-Cath placement and removal. She has also had a tonsillectomy 6. Her grandfather had bladder tumors but family history is otherwise negative for malignancy 7. 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 She lives with her adult son. She is not a smoker or drinker. 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 She is accompanied today by her good friend. - Patient Self-Reported Symptoms SR Constitution: Fever, Night Sweats SR eye issues: Vision changes SR ears, nose, mouth, throat issues: Cough SR respiratory issues: Cough SR Cardiovascular issues: Palpitations SR Gastrointestinal issues: Change in bowel pattern, Constipation SR Neuro issues: Numbness or tingling, Difficulty balancing SR Hematologic issues: Swollen lymph nodes SR Endocrine issues: Hot flashes Home Medications and Allergies Home Medications Medication Instructions Recorded Confirmed Type Probiotic 1 cap PO DAILY #0 07/04/12 01/26/20 History coQ10 (ubiquinol) 250 mg PO DAILY #0 07/04/12 01/26/20 History multivitamin 1 tab PO DAILY #0 07/04/12 01/26/20 History Protandim 1 dose PO DAILY 05/15/18 01/26/20 History Vitamin D Liquid 1 dose TOPICAL DAILY 05/15/18 01/26/20 History mupirocin 2 % topical ointment 1 applic TOP BID #30 gram 08/11/18 01/26/20 Rx Vadim Stress 1 tab DAILY 08/25/18 01/26/20 History ascorbic acid (vitamin C) [Vitamin 1,000 mg PO DAILY 08/25/18 01/26/20 History C] turmeric (bulk) [Curcumin] 1 % DAILY 08/25/18 01/26/20 History diltiazem HCl 180 mg 180 mg PO QPM #90 cap 06/26/19 01/26/20 Rx capsule,extended release 24 hr Allergies Allergy/AdvReac Type Severity Reaction Status Date / Time NSAIDS (Non-Steroidal Allergy Intermediate HIVES Verified 01/21/20 14:37 Anti-Inflamma [NSAIDS (NON-STEROIDAL ANTI-INFLAMMA] amoxicillin [AMOXICILLIN] Allergy Mild rash Verified 01/21/20 14:37 aspirin Allergy Verified 01/21/20 14:37 Exam Vital signs: Vital Signs Temp Pulse Resp BP Pulse Ox 02/10/20 08:48 100.1 F H 72 18 119/79 97 Intake and Output 02/09/20 02/10/20 02/10/20 23:59 07:59 15:59 Other: Weight 51.8 kg Patient Weight 02/10/20 23:59 Weight 51.8 kg Narrative: She was awake, alert and oriented x3. She was in no acute distress. She had multiple skin nodules that were red, raised, and some had a black eschar. They were larger and more numerous than at the time of her previous visit. None appear to be secondarily infected. Lesions on her legs look better and were flatter. The lesions on her trunk and neck continue to show an eschar and appeared similar in size. The new lesions she pointed out were small, less than a cm with no overlying scar. Lungs were clear. Her facial swelling was more prominent than when she was in a week ago. Results - Labs Laboratory Last Values WBC 5.1 X10^3/uL (4.5-11.0) 02/10/20 08:09 RBC 3.66 X10^6/uL (4.0-5.2) L 02/10/20 08:09 Hgb 10.7 g/dL (12.0-16.0) L 02/10/20 08:09 Hct 32.8 % (36-46) L 02/10/20 08:09 MCV 89.5 fL (80-100) 02/10/20 08:09 MCH 29.1 PG (26-34) 02/10/20 08:09 MCHC 32.5 % (30-36) 02/10/20 08:09 RDW 14.4 % (11.6-14.8) 02/10/20 08:09 Plt Count 131 X10^3/uL (150-400) L 02/10/20 08:09 Neut % (Auto) 63.1 % (50-75) 02/10/20 08:09 Lymph % (Auto) 19.8 % (25-40) L 02/10/20 08:09 Mcdonough % (Auto) 15.1 % (3-14) H 02/10/20 08:09 Eos % (Auto) 1.3 % (2-4) L 02/10/20 08:09 Baso % (Auto) 0.7 % (0-2) 02/10/20 08:09 Neut # (Auto) 3200 /uL (0864-8195) 02/10/20 08:09 Lymph # (Auto) 1000 /uL (7880-0300) L 02/10/20 08:09 Mcdonough # (Auto) 800 /uL (0-900) 02/10/20 08:09 Eos # (Auto) 100 /uL (0-450) 02/10/20 08:09 Baso # (Auto) 0 /uL (0-100) 02/10/20 08:09 Total Counted 50 11/10/18 08:40 Seg Neutrophils % 34.0 % (38-70) L 11/10/18 08:40 Band Neutrophils % 4.0 % (3-7) 11/10/18 08:40 Lymphocytes % (Manual) 24.0 % (25-45) L 11/10/18 08:40 Atypical Lymphs % 4.0 % (-0) H 11/10/18 08:40 Monocytes % (Manual) 32.0 % (2-11) H 11/10/18 08:40 Eosinophils % (Manual) 6.0 % (2-4) H 09/08/18 14:10 Basophils % (Manual) 2.0 % (0-1) H 11/10/18 08:40 Metamyelocytes % 1.0 % (-0) H 08/11/18 10:20 Neutrophils # (Manual) 684 /uL (4643-3691) L 11/10/18 08:40 Smudge Cells 1+ H 08/05/18 14:30 Dohle Bodies 1+ H 08/11/18 10:20 Platelet Estimate Decreased on smear 08/11/18 10:20 Plt Morphology Comment 08/11/18 10:20 RBC Morphology Normal morphology 11/10/18 08:40 Hypochromasia 1+ H 07/28/18 11:02 Poikilocytosis 1+ H 08/05/18 14:30 Anisocytosis 1+ H 09/08/18 14:10 Microcytosis 1+ H 07/09/18 09:40 Ovalocytes 1+ H 07/28/18 11:02 ESR 30 MM/HR (0-20) H 01/06/20 09:39 PT 14.2 SECONDS (10.1-12.7) H 04/24/18 14:15 INR 1.2 (0.9-1.3) 04/24/18 14:15 Sodium 137 mmol/L (137-145) 02/10/20 08:09 Potassium 3.7 mmol/L (3.4-5.1) 02/10/20 08:09 Chloride 103 mmol/L (98-107) 02/10/20 08:09 Carbon Dioxide 32 mmol/L (22-32) 02/10/20 08:09 BUN 13 mg/dL (7-17) 02/10/20 08:09 Creatinine 0.56 mg/dL (0.52-1.04) 02/10/20 08:09 Estimated GFR > 60.0 mL/min (>60) 02/10/20 08:09 BUN/Creatinine Ratio 23.2 (6-22) H 02/10/20 08:09 Glucose 88 mg/dL (80-110) 02/10/20 08:09 Calcium 9.2 mg/dL (8.4-10.2) 02/10/20 08:09 Total Bilirubin 0.5 mg/dL (0.2-1.3) 02/10/20 08:09 AST 40 IU/L (14-36) H 02/10/20 08:09 ALT 22 IU/L (<35) 02/10/20 08:09 Alkaline Phosphatase 86 U/L (38-126) 02/10/20 08:09 Lactate Dehydrogenase 825 U/L (313-618) H 01/06/20 09:39 Pned-4-Umdfvqebfedwx 3.61 mg/L (< 2.52) H 05/11/19 12:31 Total Protein 6.0 g/dL (6.3-8.2) L 02/10/20 08:09 Albumin 3.3 g/dL (3.5-5.0) L 02/10/20 08:09 Globulin 2.7 g/dL (1.7-4.1) 02/10/20 08:09 Albumin/Globulin Ratio 1.2 (1.0-2.8) 02/10/20 08:09 TSH 2.32 uIU/mL (0.47-4.68) 01/21/20 08:35 Free T4 1.47 ng/dL (0.78-2.19) 01/21/20 08:35 Random Cortisol 20.9 ug/dL 01/21/20 08:35 Hep Bs Antigen Negative s/c (NEGATIVE) 05/15/18 14:32 Hep Bs Antibody Nonreactive (Nonreactive) 05/15/18 15:31 Hep B Core Total Ab Nonreactive (Nonreactive) 05/15/18 15:31 Hep B Core IgM Ab Nonreactive (Nonreactive) 05/15/18 15:31 Hepatitis C Antibody Negative s/c (NEGATIVE) 05/15/18 14:32 Assessment and Plan (1) Hodgkins lymphoma in relapse Ms. Arredondo has increasing facial swelling. Overall the nodules have increased some and there are new spot since starting Keytruda. The main difference is increased facial swelling. There are not any clinical findings to suggest a venous occlusive event. I discussed her case with Dr. Sanjeev arrieta. Will plan to switch to brentuximab at a dose of 1.8 milligrams/kilogram every 3 weeks. Orders were entered. The tennis desk team member was able to turn obtain Emergency authorization yesterday. The pharmacy was able to get an emergency supply of the drug yesterday and we will plan to start her treatment today. She will see Dr. riggs in 2 weeks. Will get her back here in 3 weeks for follow-up with additional treatment based upon the outcome of Dr. riggs pathology review. She knows to let us know if he has any problems in the interim and I would be happy to see her at any time. (2) Follicular lymphoma Overview: Follicular lymphoma diagnosed by needle core biopsy of retroperitoneal lymph nodes on 12/27/2008 that showed atypical lymphoid infiltrate most consistent with follicular lymphoma. 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 FLIPI score was 2. She was consulted at [facility] and active surveillance was recommended. Assessment: Until now there has been no evidence to suggest recurrence or transformation of her underlying follicular lymphoma. The CT-guided biopsy of the retroperitoneal lymph node on April 25, 2018 showed no evidence of follicular lymphoma, but relapsed HD (see above) Plan: Clinical active surveillance.
[2020-02-10] MEDS: ONDANSETRON 8 MG in SODIUM CHLORIDE 0.9% 50 ML 216 ML IV (09:34)
[2020-02-10] MEDS: SODIUM CHLORIDE 0.9% 100 ML 21 ML IV (09:34)
[2020-02-10] MEDS: DEXAMETHASONE 10 MG/ML VIAL 8 MG IV (09:35)
[2020-02-10] MEDS: ACETAMINOPHEN 325 MG TABLET 650 MG PO (10:05)
[2020-02-10] MEDS: LORATADINE 10 MG TABLET PO (10:05)
[2020-02-10 10:15] VITALS: TEMP 37.2
[2020-02-10] MEDS: SODIUM CHLORIDE 0.9% IV (10:40)
[2020-02-10] MEDS: BRENTUXIMAB VEDOTIN IV (10:40)
[2020-02-10 10:55] VITALS: BP 124/72; PULSE 100; RESP 18; TEMP 37.4; O2SAT 94
[2020-02-10 11:05] VITALS: BP 129/77; PULSE 97; RESP 18; TEMP 37.1; O2SAT 95
--- NOTE | 2020-02-10 11:22 | PC.NURSE ---
Addendum entered by Kristen Bauer R.N. 02/10/20 11:33: infusion erstarted at 100ml/hr Original Note: possible reaction to Brentuxumab: infusion started; pt reported feeling warm all over. infusion stopped; 13 ml infused per pump reading. claritin and Tylenol po given prior to treatment. VS taken 10 min post. pt still feels warm and clammy. Dr. Rose notified.
--- NOTE | 2020-02-11 11:59 | PC.NURSE ---
Tylenol regimen: Pt called reporting that Dr. Rose instructed her to take scheduled Tylenol every 6 hours to keep temp spikes under control in order to help assist with SVT episodes. According to pt, she has not had a temp since midnight last night and would like to know if she should continue taking scheduled Tylenol. This RN explained to pt that she should continue Tylenol regimen until she has been 24-48hrs fever free with regimen in place. At that point, she can try taking Tylenol every 8 hours and if fever free for another 24-48hrs with Q8 hr Tylenol in place, then reduce to every 12, as long as she does not spike a temp. Further explained, if pt does spike a temp at anytime, she should resume Tylenol every 6 hours. Let pt know Dr. Rose is back in clinic on Saturday and to call with update, pt verbalized understanding. Pt aware of monitoring for s/s of infection and when to seek emergency medical attention.
--- NOTE | 2020-02-11 15:01 | PC.NURSE ---
Addendum entered by Anny Recinos R.N. 02/11/20 16:51: Re:wound 1.Keflex 500mg PO TID #21 sent to [facility], per Dr. Jones's VTO 2. F/U in place for next week, per Dr. jones 3. Pt educated to go to ER if wound gets worse. 4. educated pt on wound care and using ahrpie marker to draw a border around area to monitor increased redness. Pt verbalized understanding. Original Note: Wound: Pt called expressing concern r/t to a small quarter sized wound to cole. She reports she has been cleaning it with alcohol and hydrogen peroxide. Pt reports it looked like a little bit of puss came out. Pt requesting RN scout. Pt placed on schedule at 16:00 for RENETTA butterfield. This RN made call to Dr. Jones and he suggested antibiotic ointment be placed on it and to notify him if it looks like it is infected and PO ABX order can be placed.
--- NOTE | 2020-02-11 16:28 | PC.NURSE ---
WOUND Pt presented with a 2cm x 1.5cm wound on left cole. Lesion is black with a small amount of serous drainage from center. Outer border is pink, irregular, and extends ~0.5cm around black lesion. Neomycin was ordered by MD and applied to wound; covered with a 2x2 gauze and tegaderm dressing. Pt to start oral ABX today and follow up with MD next week.
[2020-02-11] MEDS: NEOMYCIN/POLYMYXIN/BACITRA UD OINT 1 EACH TOP (16:32)
[2020-02-17 08:37] LABS: Alanine Aminotransferase 23 IU/L (<35); Albumin 3.4 g/dL (3.5-5.0); Albumin Globulin Ratio 1.3 (1.0-2.8); Alkaline Phosphatase 78 U/L (38-126); Aspartate Aminotransferase 47 IU/L (14-36); BUN Creatinine Ratio 24.6 (6-22); Bilirubin Total 0.7 mg/dL (0.2-1.3); Blood Urea Nitrogen 14 mg/dL (7-17); Calcium 9.4 mg/dL (8.4-10.2); Carbon Dioxide 29 mmol/L (22-32); Chloride 102 mmol/L (98-107); Estimated Glomerular Filt Rate > 60.0 mL/min (>60); Globulin 2.7 g/dL (1.7-4.1); Glucose 101 mg/dL (80-110); HEMOLYSIS < 15 (0-50); Potassium 3.4 mmol/L (3.4-5.1); Sodium 135 mmol/L (137-145); Total Protein 6.1 g/dL (6.3-8.2)
[2020-02-17 08:38] VITALS: BP 110/78; PULSE 105; RESP 20; TEMP 38; O2SAT 95
[2020-02-17 08:41] LABS: Hematocrit 30.5 % (36-46); Hemoglobin 10.1 g/dL (12.0-16.0); Mean Corpuscular HGB Conc 33.1 % (30-36); Mean Corpuscular Hemoglobin 29.4 PG (26-34); Mean Corpuscular Volume 88.8 fL (80-100); Red Blood Cell Count 3.44 X10^6/uL (4.0-5.2); Red Cell Distribution Width 14.9 % (11.6-14.8); White Blood Cell Count 4.1 X10^3/uL (4.5-11.0)
[2020-02-17 08:42] LABS: Platelet Count 58 X10^3/uL (150-400)
[2020-02-17 08:43] LABS: Add Manual Diff / Slide Review YES
[2020-02-17 09:10] LABS: Neutrophils Absolute Manual 3280 /uL (3000-5900); RBC Morphology Normal Morphology; Total Cells Counted 100
--- NOTE | 2020-02-17 09:17 | ONC.PN ---
PN -Subjective Interval history: Ms. Arredondo presents today for an unscheduled follow-up visit for her Hodgkin's disease lymphoma for which she is on Keytruda, started 5 days ago. She is now 74 years old. She received presented in December of 2008 with retroperitoneal lymphadenopathy. Biopsy showed follicular lymphoma. Bone marrow showed low-level involvement. She was seen by Dr. Seth Baker at that time and also by Dr. Lillie Mays at the [facility]. Observation was recommended. In April of 2016 she developed multiple raised, red, tender skin lesions. Biopsy showed classic Hodgkin's disease. PET scan confirmed stage IV disease. She was treated with ABVD times 2 cycles and a follow-up PET scan showed Deauville 1. She went on to get 4 additional cycles of AVD and was subsequently watched off treatment. In February of 2018 she developed night sweats. A PET scan showed retroperitoneal, mediastinal and mesenteric lymphadenopathy with Deauville 5. Biopsy of a retroperitoneal lymph node in April 2018 showed classical Hodgkin's disease. Bone marrow was negative. She was seen in consultation at the [facility] by the transplant team. She also saw Dr. Ayad Haider at [facility] with the consensus that that she would not undergo transplant but that immunotherapy could be considered were she to relapse in the future. She was treated with bendamustine and brentuximab vedotin x6 which he completed October 21, 2018. A PET scan in November 05, 2018 showed a stable focus of increased uptake in the right pelvis with no evidence of mass. She was seen for follow-up in August and had a CT scan done. At that time it showed a 3 mm lesion in the costophrenic angle posteriorly in the right lower lobe as well as a 1.3 cm lesion in the left lobe of the liver, possibly hemangioma. She was counseled about options and elected for 3 month follow-up scan. This was done in November and showed resolution of the lung and liver lesions and no evidence of disease progression. She was given a 3 month follow-up appointment. She subsequent developed multiple new skin lesions. Biopsy showed recurrent Hodgkin's lymphoma. She was seen in consultation by Dr. Ayad riggs at [facility] and started on Keytruda. She got her 1st dose on January 20. She states that she developed a fever up to 102? the evening of her treatment. She also had nausea and vomiting. She went to the emergency room and laboratory studies were unrevealing. She had a repeat episode the next day and was treated with Tylenol at home and this helped. Her nausea vomiting has been treated with Zofran and this has helped. She notes increase in the size and number of skin nodules. She has a spot that is a soft tissue density developing in the inner canthus of her left eye and medial lower lid. Her night sweats are gone. She continues to have fatigue which has not changed. She has some joint aching that is unchanged and was present before she started Keytruda. She feels generally somewhat lightheaded. She had a cough yesterday but it is better today. She has not had any falls. She feels generally weak and tired. She had 2 episodes of SVT this past week for which he went to the emergency room. She was treated with adenosine and diltiazem with return to sinus rhythm. She has a history of SVT and has seen Cardiology in the past. She is chronically on diltiazem. She has not had any other chest pain, shortness of breath. She notes double vision when she looks down has an ophthalmology appointment tomorrow. She has not had any numbness or tingling. She thinks that she has several small new skin lesions. Some of the older lesions have regressed. A lesion on her right cheek and the inner canthus of her left I have gotten a little bigger. She continues to have fevers up to 101 each day but no more night sweats. About 5 days ago she developed increasing facial swelling. She saw Dr. Haider at [facility] 2 days ago. He recommended switching to brentuximab. In addition, her pathology review from [facility] came back suggesting large B-cell component non-Hodgkin's lymphoma but with different results in different skin biopsies. I spoke to Dr. riggs yesterday and he and his pathology team are reviewing all of these findings with the intention of incorporating that information in to an updated treatment plan. The patient has an appointment to see Dr. Haider in 2 weeks. Today she notes continued malaise, fatigue, night sweats, fevers, double vision, cough without shortness of breath, increased facial swelling though it is a little better today than it was 2 days ago. She does not have any numbness or tingling. All other systems are negative. She has not had any further attacks of SVT. Past medical history 1. Supraventricular tachycardia for which he takes diltiazem 2. She denies high blood pressure, diabetes, rheumatic fever, tuberculosis, heart attacks, strokes, stomach ulcers. 3. History of walking pneumonia twice in the past 4. 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 Previous surgeries include an operation on her finger and Port-A-Cath placement and removal. She has also had a tonsillectomy 6. Her grandfather had bladder tumors but family history is otherwise negative for malignancy 7. 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 She lives with her adult son. She is not a smoker or drinker. 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 She is accompanied today by her good friend. - Patient Self-Reported Symptoms SR Constitution: Fever, Chills, Weight loss/gain, Fatigue/Malaise, Night Sweats SR eye issues: Vision changes SR ears, nose, mouth, throat issues: Cough SR respiratory issues: Cough SR Cardiovascular issues: Palpitations SR Gastrointestinal issues: Change in bowel pattern, Constipation SR Neuro issues: Numbness or tingling, Difficulty balancing SR Hematologic issues: Swollen lymph nodes SR Endocrine issues: Hot flashes Home Medications and Allergies Home Medications Medication Instructions Recorded Confirmed Type Probiotic 1 cap PO DAILY #0 07/04/12 01/26/20 History coQ10 (ubiquinol) 250 mg PO DAILY #0 07/04/12 01/26/20 History multivitamin 1 tab PO DAILY #0 07/04/12 01/26/20 History Protandim 1 dose PO DAILY 05/15/18 01/26/20 History Vitamin D Liquid 1 dose TOPICAL DAILY 05/15/18 01/26/20 History mupirocin 2 % topical ointment 1 applic TOP BID #30 gram 08/11/18 01/26/20 Rx Vadim Stress 1 tab DAILY 08/25/18 01/26/20 History ascorbic acid (vitamin C) [Vitamin 1,000 mg PO DAILY 08/25/18 01/26/20 History C] turmeric (bulk) [Curcumin] 1 % DAILY 08/25/18 01/26/20 History diltiazem HCl 180 mg 180 mg PO QPM #90 cap 06/26/19 01/26/20 Rx capsule,extended release 24 hr cephalexin [Keflex] 500 mg PO TID #21 cap 02/11/20 Rx valacyclovir 500 mg PO TID 02/17/20 02/17/20 History Allergies Allergy/AdvReac Type Severity Reaction Status Date / Time NSAIDS (Non-Steroidal Allergy Intermediate HIVES Verified 01/21/20 14:37 Anti-Inflamma [NSAIDS (NON-STEROIDAL ANTI-INFLAMMA] amoxicillin [AMOXICILLIN] Allergy Mild rash Verified 01/21/20 14:37 aspirin Allergy Verified 01/21/20 14:37 Exam Vital signs: Vital Signs Temp Pulse Resp BP Pulse Ox 02/17/20 08:38 100.4 F H 105 H 20 110/78 95 Intake and Output 02/16/20 02/17/20 02/17/20 23:59 07:59 15:59 Other: Weight 50.7 kg Patient Weight 02/17/20 23:59 Weight 50.7 kg Narrative: She was awake, alert and oriented x3. She was in no acute distress. She had multiple skin nodules that were red, raised, and some had a black eschar. They were larger and more numerous than at the time of her previous visit. None appear to be secondarily infected. Lesions on her legs look better and were flatter. The lesions on her trunk and neck continue to show an eschar and appeared similar in size. The new lesions she pointed out were small, less than a cm with no overlying scar. Lungs were clear. Her facial swelling was more prominent than when she was in a week ago. Results - Labs Laboratory Last Values WBC 4.1 X10^3/uL (4.5-11.0) L 02/17/20 08:07 RBC 3.44 X10^6/uL (4.0-5.2) L 02/17/20 08:07 Hgb 10.1 g/dL (12.0-16.0) L 02/17/20 08:07 Hct 30.5 % (36-46) L 02/17/20 08:07 MCV 88.8 fL (80-100) 02/17/20 08:07 MCH 29.4 PG (26-34) 02/17/20 08:07 MCHC 33.1 % (30-36) 02/17/20 08:07 RDW 14.9 % (11.6-14.8) H 02/17/20 08:07 Plt Count 58 X10^3/uL (150-400) L 02/17/20 08:07 Neut % (Auto) Not Reportable 02/17/20 08:07 Lymph % (Auto) Not Reportable 02/17/20 08:07 [place] % (Auto) Not Reportable 02/17/20 08:07 Eos % (Auto) Not Reportable 02/17/20 08:07 Baso % (Auto) Not Reportable 02/17/20 08:07 Neut # (Auto) 3200 /uL ([id number]) 02/10/20 08:09 Lymph # (Auto) Not Reportable 02/17/20 08:07 [place] # (Auto) Not Reportable 02/17/20 08:07 Eos # (Auto) 100 /uL (0-450) 02/10/20 08:09 Baso # (Auto) Not Reportable 02/17/20 08:07 Total Counted 100 02/17/20 08:07 Seg Neutrophils % 19.0 % (38-70) L 02/17/20 08:07 Band Neutrophils % 61.0 % (3-7) H 02/17/20 08:07 Lymphocytes % (Manual) 6.0 % (25-45) L 02/17/20 08:07 Atypical Lymphs % 2.0 % (-0) H 02/17/20 08:07 Basophils % (Manual) 2.0 % (0-1) H 11/10/18 08:40 Monocytes % (Manual) 9.0 % (2-11) 02/17/20 08:07 Eosinophils % (Manual) 2.0 % (2-4) 02/17/20 08:07 Metamyelocytes % 1.0 % (-0) H 02/17/20 08:07 Neutrophils # (Manual) 3280 /uL (5598-2381) 02/17/20 08:07 Smudge Cells 1+ H 08/05/18 14:30 Dohle Bodies 1+ H 08/11/18 10:20 Platelet Estimate Decreased on smear 08/11/18 10:20 Plt Morphology Comment 08/11/18 10:20 Hypochromasia 1+ H 07/28/18 11:02 Poikilocytosis 1+ H 08/05/18 14:30 Anisocytosis 1+ H 09/08/18 14:10 Microcytosis 1+ H 07/09/18 09:40 RBC Morphology Normal morphology 02/17/20 08:07 Ovalocytes 1+ H 07/28/18 11:02 ESR 30 MM/HR (0-20) H 01/06/20 09:39 PT 14.2 SECONDS (10.1-12.7) H 04/24/18 14:15 INR 1.2 (0.9-1.3) 04/24/18 14:15 Sodium 135 mmol/L (137-145) L 02/17/20 08:07 Potassium 3.4 mmol/L (3.4-5.1) 02/17/20 08:07 Chloride 102 mmol/L (98-107) 02/17/20 08:07 Carbon Dioxide 29 mmol/L (22-32) 02/17/20 08:07 BUN 14 mg/dL (7-17) 02/17/20 08:07 Creatinine 0.57 mg/dL (0.52-1.04) 02/17/20 08:07 Estimated GFR > 60.0 mL/min (>60) 02/17/20 08:07 BUN/Creatinine Ratio 24.6 (6-22) H 02/17/20 08:07 Glucose 101 mg/dL (80-110) 02/17/20 08:07 Calcium 9.4 mg/dL (8.4-10.2) 02/17/20 08:07 Total Bilirubin 0.7 mg/dL (0.2-1.3) 02/17/20 08:07 AST 47 IU/L (14-36) H 02/17/20 08:07 ALT 23 IU/L (<35) 02/17/20 08:07 Alkaline Phosphatase 78 U/L (38-126) 02/17/20 08:07 Lactate Dehydrogenase 825 U/L (313-618) H 01/06/20 09:39 Cfsk-3-Doalryagsyjlv 3.61 mg/L (< 2.52) H 05/11/19 12:31 Total Protein 6.1 g/dL (6.3-8.2) L 02/17/20 08:07 Albumin 3.4 g/dL (3.5-5.0) L 02/17/20 08:07 Globulin 2.7 g/dL (1.7-4.1) 02/17/20 08:07 Albumin/Globulin Ratio 1.3 (1.0-2.8) 02/17/20 08:07 TSH 2.32 uIU/mL (0.47-4.68) 01/21/20 08:35 Free T4 1.47 ng/dL (0.78-2.19) 01/21/20 08:35 Random Cortisol 20.9 ug/dL 01/21/20 08:35 Hep Bs Antigen Negative s/c (NEGATIVE) 05/15/18 14:32 Hep Bs Antibody Nonreactive (Nonreactive) 05/15/18 15:31 Hep B Core Total Ab Nonreactive (Nonreactive) 05/15/18 15:31 Hep B Core IgM Ab Nonreactive (Nonreactive) 05/15/18 15:31 Hepatitis C Antibody Negative s/c (NEGATIVE) 05/15/18 14:32 Assessment and Plan (1) Hodgkins lymphoma in relapse Ms. Arredondo has increasing facial swelling. Overall the nodules have increased some and there are new spot since starting Keytruda. The main difference is increased facial swelling. There are not any clinical findings to suggest a venous occlusive event. I discussed her case with Dr. Sanjeev arrieta. Will plan to switch to brentuximab at a dose of 1.8 milligrams/kilogram every 3 weeks. Orders were entered. The front office java developer was able to turn obtain Emergency authorization yesterday. The pharmacy was able to get an emergency supply of the drug yesterday and we will plan to start her treatment today. She will see Dr. riggs in 2 weeks. Will get her back here in 3 weeks for follow-up with additional treatment based upon the outcome of Dr. riggs pathology review. She knows to let us know if he has any problems in the interim and I would be happy to see her at any time. (2) Follicular lymphoma Overview: Follicular lymphoma diagnosed by needle core biopsy of retroperitoneal lymph nodes on 12/27/2008 that showed atypical lymphoid infiltrate most consistent with follicular lymphoma. 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 FLIPI score was 2. She was consulted at [facility] and active surveillance was recommended. Assessment: Until now there has been no evidence to suggest recurrence or transformation of her underlying follicular lymphoma. The CT-guided biopsy of the retroperitoneal lymph node on April 25, 2018 showed no evidence of follicular lymphoma, but relapsed HD (see above) Plan: Clinical active surveillance.
--- NOTE | 2020-02-17 10:25 | P.PNONC_ITS ---
PN -Subjective Interval history: Ms. Arredondo presents today for an unscheduled follow-up visit for her Hodgkin's disease lymphoma. She is now 74 years old. She originally presented in December of 2008 with retroperitoneal lymphadenopathy. Biopsy showed follicular lymphoma. Bone marrow showed low-level involvement. She was seen by Dr. Seth Baker at that time and also by Dr. Lillie Mays at the [facility]. Observation was recommended. In April of 2016 she developed multiple raised, red, tender skin lesions. Biopsy showed classic Hodgkin's disease. PET scan confirmed stage IV disease. She was treated with ABVD times 2 cycles and a follow-up PET scan showed Deauville 1. She went on to get 4 additional cycles of AVD and was subsequently watched off treatment. In February of 2018 she developed night sweats. A PET scan showed retroperitoneal, mediastinal and mesenteric lymphadenopathy with Deauville 5. Biopsy of a retroperitoneal lymph node in April 2018 showed classical Hodgkin's disease. Bone marrow was negative. She was seen in consultation at the [facility] by the transplant team. She also saw Dr. Ayad Haider at [facility] with the consensus that she would not undergo transplant but that immunotherapy could be considered were she to relapse in the future. She was treated with bendamustine and brentuximab vedotin x6 which he completed October 21, 2018. A PET scan in November 05, 2018 showed a stable focus of increased uptake in the right pelvis with no evidence of mass. She was seen for follow-up in August and had a CT scan done. At that time it showed a 3 mm lesion in the costophrenic angle posteriorly in the right lower lobe as well as a 1.3 cm lesion in the left lobe of the liver, possibly hemangioma. She was counseled about options and elected for 3 month follow-up scan. This was done in November and showed resolution of the lung and liver lesions and no evidence of disease progression. She was given a 3 month follow-up appointment. She subsequent developed multiple new skin lesions. Biopsy showed recurrent Hodgkin's lymphoma. She was seen in consultation by Dr. Ayad riggs at [facility] and started on Keytruda. She got her 1st dose on January 20. She states that she developed a fever up to 102? the evening of her treatment. She also had nausea and vomiting. She went to the emergency room and laboratory studies were unrevealing. She had a repeat episode the next day and was treated with Tylenol at home and this helped. Her nausea vomiting has been treated with Zofran and this has helped. She noted increase in the size and number of skin nodules. She has a spot that is a soft tissue density developing in the inner canthus of her left eye and medial lower lid. She had 2 episodes of SVT for which he went to the emergency room. She was treated with adenosine and diltiazem with return to sinus rhythm. She has a history of SVT and has seen Cardiology in the past. She is chronically on diltiazem. She has not had any other chest pain, shortness of breath. She notes double vision when she looks down has an ophthalmology appointment tomorrow. She has not had any numbness or tingling. She thinks that she has several small new skin lesions. Some of the older lesions have regressed. A lesion on her right cheek and the inner canthus of her left I have gotten a little bigger. She continues to have fevers up to 101 each day but no more night sweats. With her skin lesions appearing to enlarge she was seen by Dr. riggs in follow- up. He is going to be reviewing her pathology. 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 She was switched from Keytruda to a brentuximab vedotin and got her 1st dose of this a week ago. She felt good for several days afterwards but now has had return of her night sweats. Tylenol does help. Several skin lesions had been draining some purulent material she was treated with Keflex. These have gotten much better. She had an episode of vesicles on an erythematous base on her right anterior abdominal wall that she says is an area where she had shingles in the past. She is on Valtrex 3 times a day for a total of a week. This is not progressed into a dermatomal distribution. She continues to be bothered by fatigue, drenching night sweats, intermittent nausea and constipation. She has not noticed any new lesions. Many of her older lesions have gotten smaller. Her right facial swelling in mass is better. Her left eye findings are also better. She comes today for a follow-up visit. All other systems are negative. Past medical history 1. Supraventricular tachycardia for which he takes diltiazem 2. She denies high blood pressure, diabetes, rheumatic fever, tuberculosis, heart attacks, strokes, stomach ulcers. 3. History of walking pneumonia twice in the past 4. 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 Previous surgeries include an operation on her finger and Port-A-Cath placement and removal. She has also had a tonsillectomy 6. Her grandfather had bladder tumors but family history is otherwise negative for malignancy 7. 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 She lives with her adult son. She is not a smoker or drinker. 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 She is accompanied today by her good friend. - Patient Self-Reported Symptoms SR Constitution: Fever, Chills, Weight loss/gain, Fatigue/Malaise, Night Sweats SR eye issues: Vision changes SR ears, nose, mouth, throat issues: Cough SR respiratory issues: Cough SR Cardiovascular issues: Palpitations SR Gastrointestinal issues: Change in bowel pattern, Constipation SR Neuro issues: Numbness or tingling, Difficulty balancing SR Hematologic issues: Swollen lymph nodes SR Endocrine issues: Hot flashes Home Medications and Allergies Home Medications Medication Instructions Recorded Confirmed Type Probiotic 1 cap PO DAILY #0 07/04/12 01/26/20 History coQ10 (ubiquinol) 250 mg PO DAILY #0 07/04/12 01/26/20 History multivitamin 1 tab PO DAILY #0 07/04/12 01/26/20 History Protandim 1 dose PO DAILY 05/15/18 01/26/20 History Vitamin D Liquid 1 dose TOPICAL DAILY 05/15/18 01/26/20 History mupirocin 2 % topical ointment 1 applic TOP BID #30 gram 08/11/18 01/26/20 Rx Vadim Stress 1 tab DAILY 08/25/18 01/26/20 History ascorbic acid (vitamin C) [Vitamin 1,000 mg PO DAILY 08/25/18 01/26/20 History C] turmeric (bulk) [Curcumin] 1 % DAILY 08/25/18 01/26/20 History diltiazem HCl 180 mg 180 mg PO QPM #90 cap 06/26/19 01/26/20 Rx capsule,extended release 24 hr cephalexin [Keflex] 500 mg PO TID #21 cap 02/11/20 Rx valacyclovir 500 mg PO TID 02/17/20 02/17/20 History Allergies Allergy/AdvReac Type Severity Reaction Status Date / Time NSAIDS (Non-Steroidal Allergy Intermediate HIVES Verified 01/21/20 14:37 Anti-Inflamma [NSAIDS (NON-STEROIDAL ANTI-INFLAMMA] amoxicillin [AMOXICILLIN] Allergy Mild rash Verified 01/21/20 14:37 aspirin Allergy Verified 01/21/20 14:37 Exam Vital signs: Vital Signs Temp Pulse Resp BP Pulse Ox 02/17/20 08:38 100.4 F H 105 H 20 110/78 95 Intake and Output 02/16/20 02/17/20 02/17/20 23:59 07:59 15:59 Other: Weight 50.7 kg Patient Weight 02/17/20 23:59 Weight 50.7 kg Narrative: She was awake, alert and oriented x3. She was in no acute distress. She had multiple skin nodules that were red, raised, and some had a black eschar. None appear to be secondarily infected. Lesions on her legs look better and were flatter. The lesions on her trunk and neck continue to show an eschar and appeared similar in size. There were no new lesions. Her facial swelling and mass on the inner canthus of her left eye were both better than when she was in a week ago. Results - Labs Laboratory Last Values WBC 4.1 X10^3/uL (4.5-11.0) L 02/17/20 08:07 RBC 3.44 X10^6/uL (4.0-5.2) L 02/17/20 08:07 Hgb 10.1 g/dL (12.0-16.0) L 02/17/20 08:07 Hct 30.5 % (36-46) L 02/17/20 08:07 MCV 88.8 fL (80-100) 02/17/20 08:07 MCH 29.4 PG (26-34) 02/17/20 08:07 MCHC 33.1 % (30-36) 02/17/20 08:07 RDW 14.9 % (11.6-14.8) H 02/17/20 08:07 Plt Count 58 X10^3/uL (150-400) L 02/17/20 08:07 Neut % (Auto) Not Reportable 02/17/20 08:07 Lymph % (Auto) Not Reportable 02/17/20 08:07 [place] % (Auto) Not Reportable 02/17/20 08:07 Eos % (Auto) Not Reportable 02/17/20 08:07 Baso % (Auto) Not Reportable 02/17/20 08:07 Neut # (Auto) 3200 /uL (1927-1764) 02/10/20 08:09 Lymph # (Auto) Not Reportable 02/17/20 08:07 [place] # (Auto) Not Reportable 02/17/20 08:07 Eos # (Auto) 100 /uL (0-450) 02/10/20 08:09 Baso # (Auto) Not Reportable 02/17/20 08:07 Total Counted 100 02/17/20 08:07 Seg Neutrophils % 19.0 % (38-70) L 02/17/20 08:07 Band Neutrophils % 61.0 % (3-7) H 02/17/20 08:07 Lymphocytes % (Manual) 6.0 % (25-45) L 02/17/20 08:07 Atypical Lymphs % 2.0 % (-0) H 02/17/20 08:07 Basophils % (Manual) 2.0 % (0-1) H 11/10/18 08:40 Monocytes % (Manual) 9.0 % (2-11) 02/17/20 08:07 Eosinophils % (Manual) 2.0 % (2-4) 02/17/20 08:07 Metamyelocytes % 1.0 % (-0) H 02/17/20 08:07 Neutrophils # (Manual) 3280 /uL (4832-2093) 02/17/20 08:07 Smudge Cells 1+ H 08/05/18 14:30 Dohle Bodies 1+ H 08/11/18 10:20 Platelet Estimate Decreased on smear 08/11/18 10:20 Plt Morphology Comment 08/11/18 10:20 Hypochromasia 1+ H 07/28/18 11:02 Poikilocytosis 1+ H 08/05/18 14:30 Anisocytosis 1+ H 09/08/18 14:10 Microcytosis 1+ H 07/09/18 09:40 RBC Morphology Normal morphology 02/17/20 08:07 Ovalocytes 1+ H 07/28/18 11:02 ESR 30 MM/HR (0-20) H 01/06/20 09:39 PT 14.2 SECONDS (10.1-12.7) H 04/24/18 14:15 INR 1.2 (0.9-1.3) 04/24/18 14:15 Sodium 135 mmol/L (137-145) L 02/17/20 08:07 Potassium 3.4 mmol/L (3.4-5.1) 02/17/20 08:07 Chloride 102 mmol/L (98-107) 02/17/20 08:07 Carbon Dioxide 29 mmol/L (22-32) 02/17/20 08:07 BUN 14 mg/dL (7-17) 02/17/20 08:07 Creatinine 0.57 mg/dL (0.52-1.04) 02/17/20 08:07 Estimated GFR > 60.0 mL/min (>60) 02/17/20 08:07 BUN/Creatinine Ratio 24.6 (6-22) H 02/17/20 08:07 Glucose 101 mg/dL (80-110) 02/17/20 08:07 Calcium 9.4 mg/dL (8.4-10.2) 02/17/20 08:07 Total Bilirubin 0.7 mg/dL (0.2-1.3) 02/17/20 08:07 AST 47 IU/L (14-36) H 02/17/20 08:07 ALT 23 IU/L (<35) 02/17/20 08:07 Alkaline Phosphatase 78 U/L (38-126) 02/17/20 08:07 Lactate Dehydrogenase 825 U/L (313-618) H 01/06/20 09:39 Pkjr-0-Emgfwefiylvdk 3.61 mg/L (< 2.52) H 05/11/19 12:31 Total Protein 6.1 g/dL (6.3-8.2) L 02/17/20 08:07 Albumin 3.4 g/dL (3.5-5.0) L 02/17/20 08:07 Globulin 2.7 g/dL (1.7-4.1) 02/17/20 08:07 Albumin/Globulin Ratio 1.3 (1.0-2.8) 02/17/20 08:07 TSH 2.32 uIU/mL (0.47-4.68) 01/21/20 08:35 Free T4 1.47 ng/dL (0.78-2.19) 01/21/20 08:35 Random Cortisol 20.9 ug/dL 01/21/20 08:35 Hep Bs Antigen Negative s/c (NEGATIVE) 05/15/18 14:32 Hep Bs Antibody Nonreactive (Nonreactive) 05/15/18 15:31 Hep B Core Total Ab Nonreactive (Nonreactive) 05/15/18 15:31 Hep B Core IgM Ab Nonreactive (Nonreactive) 05/15/18 15:31 Hepatitis C Antibody Negative s/c (NEGATIVE) 05/15/18 14:32 Assessment and Plan (1) Hodgkins lymphoma in relapse Ms. Arredondo appears to have had some improvement in her skin lesions. She does not have any new lesions. Many of the old ones are much better. Her facial swelling and left eyes masses are definitely better. She continues to have constitutional symptoms with night sweats and is quite fatigued. Labs from today [place] [address] as well as a hemoglobin of 10.1 but no worrisome cytopenias. She will see Dr. Haider next week as scheduled. At that time I would anticipate he will have completed her pathology review. A decision on further treatment for her lymphoproliferative disorder will be made with his input. In the meantime should continue to take Tylenol. She was advised that she could take occasional doses of ibuprofen but we discussed the fact that it can have reversible anti-platelet effect and she would need to take this cautiously. She also has what looks like a herpes simplex eruption on her right anterior chest wall. There is no dermatomal distribution of rash to suggest shingles. It is not painful. She is on Valtrex which is appropriate and will continue this. She and her friend had multiple questions that were answered in detail and I personally spent 26 minutes in today's [id number] visit with greater than 50% of the time spent in counseling regarding the issues outlined above. (2) Follicular lymphoma Overview: Follicular lymphoma diagnosed by needle core biopsy of retroperitoneal lymph nodes on 12/27/2008 that showed atypical lymphoid infiltrate most consistent with follicular lymphoma. 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 FLIPI score was 2. She was consulted at [facility] and active surveillance was recommended. Assessment: Until now there has been no evidence to suggest recurrence or transformation of her underlying follicular lymphoma. The CT-guided biopsy of the retroperitoneal lymph node on April 25, 2018 showed no evidence of follicular lymphoma, but relapsed HD (see above) Plan: Clinical active surveillance.
--- NOTE | 2020-02-22 14:26 | PC.NURSE ---
Pt called today to let us know that she was unable to make it to [facility] for her appointment last week due to other medical concerns. She has an appointment on Saturday with Dr. Rose to discuss that appointment and continuation of treatment. Would Dr. Rose still like to see the patient on [id number]? Or wait till she has seen [facility] doctor? Please advise.
[2020-02-24] MEDS: ALTEPLASE 2 MG/2 ML VIAL IV (15:33)
[2020-02-24 15:45] LABS: Add Manual Diff / Slide Review NO; Basophils Absolute Auto 0 /uL (0-100); Basophils Percent Auto 0.7 % (0-2); Eosinophils Absolute Auto 0 /uL (0-450); Lymphocytes Absolute Auto 500 /uL (1100-4500); Lymphocytes Percent Auto 23.4 % (25-40); Mean Corpuscular Volume 89.8 fL (80-100); Monocytes Absolute Auto 400 /uL (0-900)
[2020-02-24 15:48] LABS: Alanine Aminotransferase 29 IU/L (<35); Albumin 3.3 g/dL (3.5-5.0); Albumin Globulin Ratio 1.2 (1.0-2.8); Alkaline Phosphatase 93 U/L (38-126); Aspartate Aminotransferase 53 IU/L (14-36); Blood Urea Nitrogen 13 mg/dL (7-17); Calcium 9.8 mg/dL (8.4-10.2); Carbon Dioxide 32 mmol/L (22-32); Chloride 98 mmol/L (98-107); Estimated Glomerular Filt Rate > 60.0 mL/min (>60); Globulin 2.7 g/dL (1.7-4.1); Glucose 143 mg/dL (80-110); HEMOLYSIS < 15 (0-50); Potassium 3.4 mmol/L (3.4-5.1); Sodium 132 mmol/L (137-145)
[2020-02-24 15:50] LABS: Eosinophils Percent Auto 0.7 % (2-4); Hematocrit 29.3 % (36-46); Hemoglobin 9.6 g/dL (12.0-16.0); Mean Corpuscular HGB Conc 32.8 % (30-36); Mean Corpuscular Hemoglobin 29.5 PG (26-34); Monocytes Percent Auto 17.7 % (3-14); Neutrophils Absolute Auto 1200 /uL (1500-7000); Neutrophils Percent Auto 57.5 % (50-75); Red Blood Cell Count 3.26 X10^6/uL (4.0-5.2); Red Cell Distribution Width 15.7 % (11.6-14.8)
[2020-02-24 15:52] LABS: Platelet Count 23 X10^3/uL (150-400)
[2020-02-24 16:18] LABS: Macrocytosis 1+; Platelet Estimate Decreased on smear
--- NOTE | 2020-02-24 16:54 | PC.NURSE ---
Addendum entered by Anny Recinos R.N. 02/25/20 12:01: pt aware to not take Ibuprofen. Original Note: critical platelet value [address] Rose, no new orders received.
--- NOTE | 2020-03-02 10:17 | PHA.NOTE ---
Brentiximub treatment: Patient is currently admitted for neutropenic fever. Per Dr. Rose, to hold today treatment.
--- NOTE | 2020-03-02 18:45 | P.PNONC_ITS ---
PN -Subjective Interval history: Ms. Arredondo is seen today as an inpatient for follow-up of her lymphoma. She is now 74 years old. She originally presented in December of 2008 with retroperitoneal lymphadenopathy. Biopsy showed follicular lymphoma. Bone marrow showed low-level involvement. She was seen by Dr. Seth Bkaer at that time and also by Dr. Lillie Mays at the [facility]. Observation was recommended. In April of 2016 she developed multiple raised, red, tender skin lesions. Biopsy showed classic Hodgkin's disease. PET scan confirmed stage IV disease. She was treated with ABVD times 2 cycles and a follow-up PET scan showed [place] 1. She went on to get 4 additional cycles of AVD and was subsequently watched off treatment. In February of 2018 she developed night sweats. A PET scan showed retroperitoneal, mediastinal and mesenteric lymphadenopathy with Deauville 5. Biopsy of a retroperitoneal lymph node in April 2018 showed classical Hodgkin's disease. Bone marrow was negative. She was seen in consultation at the [facility] by the transplant team. She also saw Dr. Ayad Haider at [facility] with the consensus that she would not undergo transplant but that immunotherapy could be considered were she to relapse in the future. She was treated with bendamustine and brentuximab vedotin x6 which he completed October 21, 2018. A PET scan in November 05, 2018 showed a stable focus of increased uptake in the right pelvis with no evidence of mass. She was seen for follow-up in August and had a CT scan done. At that time it showed a 3 mm lesion in the costophrenic angle posteriorly in the right lower lobe as well as a 1.3 cm lesion in the left lobe of the liver, possibly hemangioma. She was counseled about options and elected for 3 month follow-up scan. This was done in November and showed resolution of the lung and liver lesions and no evidence of disease progression. She was given a 3 month follow-up appointment. She subsequent developed multiple new skin lesions. Biopsy showed recurrent Hodgkin's lymphoma. She was seen in consultation by Dr. Ayad riggs at [facility] and started on Keytruda. She got her 1st dose on January 20. She states that she developed a fever up to 102? the evening of her treatment. She also had nausea and vomiting. She went to the emergency room and laboratory studies were unrevealing. She had a repeat episode the next day and was treated with Tylenol at home and this helped. Her nausea vomiting has been treated with Zofran and this has helped. She noted increase in the size and number of skin nodules. She has a spot that is a soft tissue density developing in the inner canthus of her left eye and medial lower lid. She had 2 episodes of SVT for which he went to the emergency room. She was treated with adenosine and diltiazem with return to sinus rhythm. She has a history of SVT and has seen Cardiology in the past. She is chronically on diltiazem. She has not had any other chest pain, shortness of breath. She notes double vision when she looks down has an ophthalmology appointment tomorrow. She has not had any numbness or tingling. She thinks that she has several small new skin lesions. Some of the older lesions have regressed. A lesion on her right cheek and the inner canthus of her left I have gotten a little bigger. She continues to have fevers up to 101 each day but no more night sweats. With her skin lesions appearing to enlarge she was seen by Dr. Haider in follow- up. He is going to be reviewing her pathology. 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 She was switched from Keytruda to a brentuximab vedotin and got her 1st dose of this 3 weeks ago. She felt good for several days afterwards but now has had return of her night sweats. Tylenol does help. Several skin lesions had been draining some purulent material she was treated with Keflex. These have gotten much better. She had an episode of vesicles on an erythematous base on her right anterior abdominal wall that she says is an area where she had shingles in the past. She is on Valtrex 3 times a day for a total of a week. This is not progressed into a dermatomal distribution. She continues to be bothered by fatigue, drenching night sweats, intermittent nausea and constipation. She has not noticed any new lesions. Many of her older lesions have gotten smaller. Her right facial swelling in mass is better. Her left eye findings are also better. However, she developed fever and severe weakness and fatigue. She was noted to be pancytopenic and was admitted. She seen today for hematology follow-up. Past medical history 1. Supraventricular tachycardia for which he takes diltiazem 2. She denies high blood pressure, diabetes, rheumatic fever, tuberculosis, heart attacks, strokes, stomach ulcers. 3. History of walking pneumonia twice in the past 4. 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 Previous surgeries include an operation on her finger and Port-A-Cath placement and removal. She has also had a tonsillectomy 6. Her grandfather had bladder tumors but family history is otherwise negative for malignancy 7. 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 She lives with her adult son. She is not a smoker or drinker. 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 She is accompanied today by her good friend. - Patient Self-Reported Symptoms SR Constitution: Fever, Chills, Weight loss/gain, Fatigue/Malaise, Night Sweats SR eye issues: Vision changes SR ears, nose, mouth, throat issues: Cough SR respiratory issues: Cough SR Cardiovascular issues: Palpitations SR Gastrointestinal issues: Change in bowel pattern, Constipation SR Neuro issues: Numbness or tingling, Difficulty balancing SR Hematologic issues: Swollen lymph nodes SR Endocrine issues: Hot flashes Home Medications and Allergies Home Medications Medication Instructions Recorded Confirmed Type diltiazem HCl 180 mg 180 mg PO QPM #90 cap 06/26/19 02/28/20 Rx capsule,extended release 24 hr Allergies Allergy/AdvReac Type Severity Reaction Status Date / Time NSAIDS (Non-Steroidal Allergy Intermediate HIVES Verified 02/28/20 10:27 Anti-Inflamma [NSAIDS (NON-STEROIDAL ANTI-INFLAMMA] amoxicillin [AMOXICILLIN] Allergy Mild rash Verified 02/28/20 10:27 aspirin Allergy Verified 02/28/20 10:27 Exam Narrative: She appeared very tired. Her skin lesions are crusted over. Results - Labs Laboratory Last Values WBC 2.0 X10^3/uL (4.5-11.0) L 02/24/20 15:15 RBC 3.26 X10^6/uL (4.0-5.2) L 02/24/20 15:15 Hgb 9.6 g/dL (12.0-16.0) L 02/24/20 15:15 Hct 29.3 % (36-46) L 02/24/20 15:15 MCV 89.8 fL (80-100) 02/24/20 15:15 MCH 29.5 PG (26-34) 02/24/20 15:15 MCHC 32.8 % (30-36) 02/24/20 15:15 RDW 15.7 % (11.6-14.8) H 02/24/20 15:15 Plt Count 23 X10^3/uL (150-400) L* 02/24/20 15:15 Neut % (Auto) 57.5 % (50-75) 02/24/20 15:15 Lymph % (Auto) 23.4 % (25-40) L 02/24/20 15:15 [place] % (Auto) 17.7 % (3-14) H 02/24/20 15:15 Eos % (Auto) 0.7 % (2-4) L 02/24/20 15:15 Baso % (Auto) 0.7 % (0-2) 02/24/20 15:15 Neut # (Auto) 1200 /uL (5908-6389) L 02/24/20 15:15 Lymph # (Auto) 500 /uL (9922-7039) L 02/24/20 15:15 [place] # (Auto) 400 /uL (0-900) 02/24/20 15:15 Eos # (Auto) 0 /uL (0-450) 02/24/20 15:15 Baso # (Auto) 0 /uL (0-100) 02/24/20 15:15 Total Counted 100 02/17/20 08:07 Seg Neutrophils % 19.0 % (38-70) L 02/17/20 08:07 Band Neutrophils % 61.0 % (3-7) H 02/17/20 08:07 Lymphocytes % (Manual) 6.0 % (25-45) L 02/17/20 08:07 Atypical Lymphs % 2.0 % (-0) H 02/17/20 08:07 Basophils % (Manual) 2.0 % (0-1) H 11/10/18 08:40 Monocytes % (Manual) 9.0 % (2-11) 02/17/20 08:07 Eosinophils % (Manual) 2.0 % (2-4) 02/17/20 08:07 Metamyelocytes % 1.0 % (-0) H 02/17/20 08:07 Neutrophils # (Manual) 3280 /uL (6082-8788) 02/17/20 08:07 Smudge Cells 1+ H 08/05/18 14:30 Dohle Bodies 1+ H 08/11/18 10:20 Plt Morphology Comment 08/11/18 10:20 Platelet Estimate Decreased on smear 02/24/20 15:15 Hypochromasia 1+ H 07/28/18 11:02 Poikilocytosis 1+ H 08/05/18 14:30 Anisocytosis 1+ H 09/08/18 14:10 Microcytosis 1+ H 07/09/18 09:40 RBC Morphology See below 02/24/20 15:15 Ovalocytes 1+ H 07/28/18 11:02 Macrocytosis 1+ H 02/24/20 15:15 ESR 30 MM/HR (0-20) H 01/06/20 09:39 PT 14.2 SECONDS (10.1-12.7) H 04/24/18 14:15 INR 1.2 (0.9-1.3) 04/24/18 14:15 Sodium 132 mmol/L (137-145) L 02/24/20 15:15 Potassium 3.4 mmol/L (3.4-5.1) 02/24/20 15:15 Chloride 98 mmol/L (98-107) 02/24/20 15:15 Carbon Dioxide 32 mmol/L (22-32) 02/24/20 15:15 BUN 13 mg/dL (7-17) 02/24/20 15:15 Creatinine 0.62 mg/dL (0.52-1.04) 02/24/20 15:15 Estimated GFR > 60.0 mL/min (>60) 02/24/20 15:15 BUN/Creatinine Ratio 21.0 (6-22) 02/24/20 15:15 Glucose 143 mg/dL (80-110) H 02/24/20 15:15 Calcium 9.8 mg/dL (8.4-10.2) 02/24/20 15:15 Total Bilirubin 1.0 mg/dL (0.2-1.3) 02/24/20 15:15 AST 53 IU/L (14-36) H 02/24/20 15:15 ALT 29 IU/L (<35) 02/24/20 15:15 Alkaline Phosphatase 93 U/L (38-126) 02/24/20 15:15 Lactate Dehydrogenase 825 U/L (313-618) H 01/06/20 09:39 Qpec-5-Cjnwibaegxduf 3.61 mg/L (< 2.52) H 05/11/19 12:31 Total Protein 6.0 g/dL (6.3-8.2) L 02/24/20 15:15 Albumin 3.3 g/dL (3.5-5.0) L 02/24/20 15:15 Globulin 2.7 g/dL (1.7-4.1) 02/24/20 15:15 Albumin/Globulin Ratio 1.2 (1.0-2.8) 02/24/20 15:15 TSH 2.32 uIU/mL (0.47-4.68) 01/21/20 08:35 Free T4 1.47 ng/dL (0.78-2.19) 01/21/20 08:35 Random Cortisol 20.9 ug/dL 01/21/20 08:35 Hep Bs Antigen Negative s/c (NEGATIVE) 05/15/18 14:32 Hep Bs Antibody Nonreactive (Nonreactive) 05/15/18 15:31 Hep B Core Total Ab Nonreactive (Nonreactive) 05/15/18 15:31 Hep B Core IgM Ab Nonreactive (Nonreactive) 05/15/18 15:31 Hepatitis C Antibody Negative s/c (NEGATIVE) 05/15/18 14:32 Assessment and Plan (1) Hodgkins lymphoma in relapse Ms. Arredondo has a severe pancytopenia. Her white counts improved with 1 dose of Neupogen. She got a 2nd dose today. If her ANC is over 5000 this can be discontinued. If her counts showed a stability the plan is for her to go home tomorrow which I think is quite reasonable. I encouraged her to be up as much as she could trying to maintain some strength. I discussed her case with Dr. riggs from [facility] today. He very much wants to see her next week in followup. She'll need a change in her systemic therapy with the details pending Dr. Haider's review of her recent biopsy. I'll plan to see her back in the clinic in about 2 weeks, any time if I could be of assistance in her care. (2) Follicular lymphoma Overview: Follicular lymphoma diagnosed by needle core biopsy of retroperitoneal lymph nodes on 12/27/2008 that showed atypical lymphoid infiltrate most consistent with follicular lymphoma. 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 FLIPI score was 2. She was consulted at [facility] and active surveillance was recommended. Assessment: Until now there has been no evidence to suggest recurrence or transformation of her underlying follicular lymphoma. The CT-guided biopsy of the retroperitoneal lymph node on April 25, 2018 showed no evidence of follicular lymphoma, but relapsed HD (see above) Plan: Clinical active surveillance.
--- NOTE | 2020-04-04 15:42 | ONC.MSW ---
*Sent bereavement card.
== END ==
PROVIDERS: Internal Medicine; Nurse Practitioner Gerontology; Family Provider Student in an Organized Health Care Education/Training Program; PCP Student in an Organized Health Care Education/Training Program; Visit Provider Internal Medicine Hematology & Oncology
DX: C81.98 Hodgkin lymphoma, unspecified, lymph nodes of multiple sites (principal); C82.96 Follicular lymphoma, unspecified, intrapelvic lymph nodes
CPT/HCPCS: 36415; 36591; 36592; 38222; 71260; 74177; 80053; 82232; 82533; 82565; 83615; 84439; 84443; 84520; 85007; 85025; 85610; 85651; 86704; 86705; 86706; 86803; 87040; 87340; 96361; 96365; 96366; 96374; 96375; 96376; 96409; 96413; 96415; 96417; 96523; 99000; 99214; 99215; 99232; J1100; J2405; J2930; J2997; J9034; J9036; J9042; J9271; Q9967

== ENCOUNTER 2020-02-28 09:39 | Inpatient (IN) | payer MEDICARE, OTHER, SELFPAY ==
[2020-02-28] VITALS (26 sets, daily range): BP systolic 92–130; BP diastolic 52–64; PULSE 77–93; RESP 12–24; TEMP 36.8–38.7; O2SAT 95–99; BMI 18.8
--- NOTE | 2020-02-28 11:17 | DI.RAD.S_ITS ---
PROCEDURE: XR CHEST 1V INDICATIONS: chest pain TECHNIQUE: One view of the chest was acquired. COMPARISON: [facility], NM, NM PET CT FUSION SKULL 2 THIGH, 01/13/2020, 15:05. [facility], CT, CT CHEST ABD PEL W CON, 12/02/2019, 9:36. [facility], CT, CT CHEST ABD PEL W CON, 09/18/2019, 10:37. [facility], CR, XR CHEST 1V, 05/15/2018, 15:10. [facility], CR, XR CHEST 1V, 05/20/2018, 13:20. FINDINGS: The patient is slightly rotated to the left for this study. Surgical changes and devices: There is a stable right-sided chest port. Lungs and pleura: Minimal interstitial prominence can be seen. No pleural effusions or pneumothorax. Mediastinum: Mediastinal contours appear normal. Heart size is normal. Bones and chest wall: No suspicious bony lesions. Degenerative changes are seen throughout, which are worst involving the left shoulder. Overlying soft tissues appear unremarkable. IMPRESSION: Mild interstitial prominence can be seen. Please consider short-term follow-up. Postoperative and degenerative changes are seen. Dictated by: Kingsley Villa M.D. on 02/28/2020 at 11:11 Approved by: Kingsley Villa M.D. on 02/28/2020 at 11:12
[2020-02-28 11:38] LABS: Mean Corpuscular HGB Conc 32.9 % (30-36)
[2020-02-28] MEDS: SODIUM CHLORIDE 0.9% 1,000 ML 1000 ML IV (11:38)
[2020-02-28 11:42] LABS: INR 1.4 (0.9-1.3); Prothrombin Time 15.6 SECONDS (10.1-12.7)
[2020-02-28 11:43] LABS: Hematocrit 25.7 % (36-46); Hemoglobin 8.5 g/dL (12.0-16.0); Mean Corpuscular Hemoglobin 28.9 PG (26-34); Mean Corpuscular Volume 87.9 fL (80-100); Red Blood Cell Count 2.92 X10^6/uL (4.0-5.2); Red Cell Distribution Width 16.6 % (11.6-14.8)
[2020-02-28 11:45] LABS: PTT Partial Thromboplastin Tim 32 SECONDS (26.4-36.2); White Blood Cell Count 1.4 X10^3/uL (4.5-11.0)
[2020-02-28 11:46] LABS: Add Manual Diff / Slide Review YES; Platelet Count 11 X10^3/uL (150-400)
[2020-02-28 11:47] LABS: Alanine Aminotransferase 24 IU/L (<35); Albumin 2.9 g/dL (3.5-5.0); Albumin Globulin Ratio 1.2 (1.0-2.8); Alkaline Phosphatase 74 U/L (38-126); Aspartate Aminotransferase 53 IU/L (14-36); BUN Creatinine Ratio 23.1 (6-22); Bilirubin Total 1.2 mg/dL (0.2-1.3); Blood Urea Nitrogen 15 mg/dL (7-17); Calcium 9.2 mg/dL (8.4-10.2); Carbon Dioxide 27 mmol/L (22-32); Chloride 100 mmol/L (98-107); Creatine Kinase 47 U/L (30-135); Estimated Glomerular Filt Rate > 60.0 mL/min (>60); Globulin 2.4 g/dL (1.7-4.1); Glucose 90 mg/dL (80-110); HEMOLYSIS < 15 (0-50); Lipase 53 U/L (23-300); Potassium 3.4 mmol/L (3.4-5.1); Sodium 131 mmol/L (137-145); Total Protein 5.3 g/dL (6.3-8.2)
[2020-02-28 11:58] LABS: Troponin I < 0.012 ng/mL (0.01-0.034)
[2020-02-28 12:04] LABS: Neutrophils Absolute Manual 1120 /uL (3000-5900); Total Cells Counted 50
--- NOTE | 2020-02-28 12:05 | ED_ITS ---
HPI - Weakness General Chief complaint: Weakness Stated complaint: dehydration, needs fluids Time Seen by Provider: 02/28/20 11:23 Source: patient and old records reviewed Mode of arrival: Ambulatory Limitations: no limitations History of Present Illness HPI Narrative: This is a pleasant 74-year-old female who comes in with complaint of weakness. She has also had fevers intermittently. She states she sometimes developed SVT particularly when she has fevers but has not since last Saturday almost a week ago. She has multiple skin lesions from her lymphoma which are healing. She states that she had a temp up to 101 F last night she has been having these intermittently along with night sweats and chills. She did have some vomiting but none recently. She denies headache, no chest pain, no shortness of breath, no abdominal pain. She denies any nausea or vomiting currently. No bright red blood or melena. She has not noted any hematuria, frequency or dysuria. She is following with Oncology for her lymphoma, she was on immune therapy but it has not seemed to be working quickly enough so they were changing her medications. She has felt increasingly weak and is in the process of trying to set up some additional help at home with her family. She has not required transfusions in the past of blood or platelets. She follows with Dr. Polk is her oncologist and he consults with Dr. Kamila arrieta through [facility] as well. Related Data Previous Rx's Medication Instructions Recorded diltiazem HCl 180 mg 180 mg PO QPM #90 cap 06/26/19 capsule,extended release 24 hr Allergies Allergy/AdvReac Type Severity Reaction Status Date / Time NSAIDS (Non-Steroidal Allergy Intermediate HIVES Verified 02/28/20 10:27 Anti-Inflamma [NSAIDS (NON-STEROIDAL ANTI-INFLAMMA] amoxicillin [AMOXICILLIN] Allergy Mild rash Verified 02/28/20 10:27 aspirin Allergy Verified 02/28/20 10:27 Review of Systems Review of Systems ROS Unobtainable: All systems reviewed & are unremarkable except as noted in HPI and below Patient History Medical History (Updated 02/28/20 @ 14:53 by Rebecca Smart DO) Follicular non-Hodgkin's lymphoma SVT (supraventricular tachycardia) Surgical History History of removal of Port-a-Cath Social History household members: children Smoking Status: Former smoker alcohol intake: never substance use type: does not use Smoking Status: Former smoker alcohol intake frequency: holidays/special occasions only Substance Use Type: does not use Exam Narrative Exam Narrative: GEN: Thin, well-appearing elderly female, alert and oriented x 3, patient appears to be in mild distress. HEENT: Atraumatic, pupils are equal round reactive to light, extraocular movements are intact, nares are clear, TMs are clear with no fluid, there is no conjunctival pallor. Throat is clear without any exudates, erythema, tonsillar enlargement or uvular deviation, patient has multiple large scabs or lesions on her neck, right brow and cheek, none are actively bleeding. HEART: Regular rate and rhythm without murmur, clicks, rubs. No carotid bruits, pulses are equal in upper and lower extremities LUNGS:Lungs clear to auscultation, no wheezes, rales, crackles, chest moves symmetrically, no tachypnea or accessory muscle use. ABD:bowel sounds normal, soft, non-tender, no guarding, rebound, rigidity, no masses noted, no hepatosplenomegaly :No CVA tenderness MSCL: Non-tender, no muscle atrophy, muscles strength 5/5 upper and lower extrem ities, full range of motion, normal gait NEURO:CN 2-12 intact, sensation normal SKIN: No large areas of ecchymosis noted, patient does have some mild bruising in various locations as well as lesions described above. Initial Vital Signs Initial Vital Signs: Vital Signs Blood Pressure 130/64 02/28/20 10:10 Scores GCS Sondra coma scale eye opening: Spontaneous [place] coma scale verbal response: Orientated Sondra coma scale motor response: Obey commands Sondra coma scale total score: 15 qSOFA Altered Mental Status (GCS <15): No Respiratory rate greater than/equal to 22: No Systolic blood pressure less than or equal to 100: Yes qSOFA Total: 1 0-1 Not High Risk 1-3 High risk Course Orders Ordered: ED Orders 02/28/20 11:17 XR chest 1V Stat EKG-12 Lead Stat 02/28/20 11:29 Complete Blood Count AUTO DIFF Stat Comprehensive Metabolic Panel Stat Lactate (Lactic Acid) Stat Lipase Stat Partial Thromboplastin Time Stat Procalcitonin Stat Prothrombin Time INR Stat Troponin & CK Cardiac Panel Stat 02/28/20 12:16 ABO RH Type Stat Platelets Stat 02/28/20 12:20 CT head/brain wo con Stat 02/28/20 12:27 Blood Culture Stat 02/28/20 12:40 Urinalysis and Microscopic Stat 02/28/20 13:19 COVID19 Stat Discontinued Medications Sodium Chloride (Normal Saline 0.9%) 1,000 mls @ 1,000 mls/hr IV BOLUS ONE Stop: 02/28/20 12:34 Last Infusion: 02/28/20 13:03 Dose: 0 mls/hr Documented by: Admin: 02/28/20 11:38 Dose: 1,000 mls/hr Documented by: DAV Piperacillin Sod/Tazobactam (Sod 4.5 gm/ Sodium Chloride) 100 mls @ 200 mls/hr IV NOW ONE Stop: 02/28/20 14:42 Cefepime HCl 2 gm/ Sodium (Chloride) 100 mls @ 200 mls/hr IV NOW ONE Stop: 02/28/20 14:51 Last Infusion: 02/28/20 15:39 Dose: 0 mls/hr Documented by: Admin: 02/28/20 15:03 Dose: 200 mls/hr Documented by: CELIO Vancomycin HCl (Vancomycin) 1,000 mg in 200 mls @ 200 mls/hr IV NOW ONE Stop: 02/28/20 15:50 Last Infusion: 02/28/20 16:07 Dose: 200 mls/hr Documented by: Admin: 02/28/20 15:39 Dose: 200 mls/hr Documented by: CELIO Consultations Consultation #1: Spoke with Dr. Clements from Oncology who recommends platelets, covering patient with IV antibiotics and admission while pending cultures. Consultation #2: Spoke with Dr. Alejandra who accepts for observation. Patient is not technically a neutropenic fever but with her pancytopenia, platelets of 11 requiring transfusion and recent fevers at home with an elevated procalcitonin felt it would be prudent after discussion with Oncology. They recommended covering for with IV antibiotics and admission while pending cultures. Patient does not have any source of bleeding at this time. No clear source of infection is noted. Procalcitonin could potentially be elevated secondary to her cancer but she has also been febrile. Time: 14:50 Vital Signs Vital signs: Vital Signs - 8 hr 02/28/20 10:10 02/28/20 10:11 02/28/20 10:23 Temperature 98.3 F Pulse Rate 90 87 Respiratory Rate 18 Blood Pressure 130/64 130/64 Pulse Oximetry 96 98 02/28/20 10:30 02/28/20 11:00 02/28/20 11:29 Temperature Pulse Rate 84 84 83 Respiratory Rate Blood Pressure 92/53 L Pulse Oximetry 96 97 97 02/28/20 11:30 02/28/20 12:00 02/28/20 12:30 Temperature Pulse Rate 87 82 87 Respiratory Rate 19 20 Blood Pressure 97/55 L 103/54 L Pulse Oximetry 97 96 97 02/28/20 13:00 02/28/20 13:22 02/28/20 13:30 Temperature Pulse Rate 79 81 80 Respiratory Rate 19 18 18 Blood Pressure 98/64 102/60 Pulse Oximetry 97 97 97 02/28/20 14:00 02/28/20 14:30 Temperature Pulse Rate 80 77 Respiratory Rate 19 24 Blood Pressure 100/59 L 100/55 L Pulse Oximetry 97 99 MDM - Weakness Lab Data Attestation: I reviewed the patient's lab results. Result diagrams: 02/28/20 11:29 02/28/20 11:29 Labs: Lab Results 02/28/20 02/28/20 02/28/20 Range/Units 11:29 11:29 11:29 WBC 1.4 L* (4.5-11.0) X10^3/uL RBC 2.92 L (4.0-5.2) X10^6/uL Hgb 8.5 L (12.0-16.0) g/dL Hct 25.7 L (36-46) % MCV 87.9 (80-100) fL MCH 28.9 (26-34) PG MCHC 32.9 (30-36) % RDW 16.6 H (11.6-14.8) % Plt Count 11 L* (150-400) X10^3/uL Neut % (Auto) Not Reportable Lymph % (Auto) Not Reportable [place] % (Auto) Not Reportable Eos % (Auto) Not Reportable Baso % (Auto) Not Reportable Lymph # (Auto) Not Reportable [place] # (Auto) Not Reportable Baso # (Auto) Not Reportable Total Counted 50 Seg Neutrophils % 72.0 H (38-70) % Band Neutrophils % 8.0 H (3-7) % Lymphocytes % (Manual) 12.0 L (25-45) % Atypical Lymphs % 4.0 H ( - 0) % Monocytes % (Manual) 4.0 (2-11) % Neutrophils # (Manual) 1120 L (4045-2349) /uL Dohle Bodies 1+ H Platelet Estimate Decreased on smear RBC Morphology See below Poikilocytosis 1+ H Anisocytosis 2+ H PT 15.6 H (10.1-12.7) SECONDS INR 1.4 H (0.9-1.3) APTT 32 (26.4-36.2) SECONDS Sodium 131 L (137-145) mmol/L Potassium 3.4 (3.4-5.1) mmol/L Chloride 100 (98-107) mmol/L Carbon Dioxide 27 (22-32) mmol/L BUN 15 (7-17) mg/dL Creatinine 0.65 (0.52-1.04) mg/dL Estimated GFR > 60.0 (>60) mL/min BUN/Creatinine Ratio 23.1 H (6-22) Glucose 90 (80-110) mg/dL Lactate (0.7-2.1) mmol/L Calcium 9.2 (8.4-10.2) mg/dL Total Bilirubin 1.2 (0.2-1.3) mg/dL AST 53 H (14-36) IU/L ALT 24 (<35) IU/L Alkaline Phosphatase 74 (38-126) U/L Total Creatine Kinase 47 (30-135) U/L CK-MB (CK-2) TNP CK-MB (CK-2) Rel Index TNP Troponin I < 0.012 (0.01-0.034) ng/mL Total Protein 5.3 L (6.3-8.2) g/dL Albumin 2.9 L (3.5-5.0) g/dL Globulin 2.4 (1.7-4.1) g/dL Albumin/Globulin Ratio 1.2 (1.0-2.8) Lipase 53 (23-300) U/L Procalcitonin (<0.5) ng/mL Urine Color Urine Appearance Urine pH (4.5-8.0) Ur Specific [place] (1.000-1.035) Urine Protein (Negative) Urine Glucose (UA) (Negative) g/dL Urine Ketones (NEGATIVE) Urine Occult Blood (Negative) Urine Nitrate (Negative) Urine Bilirubin (NEGATIVE) Urine Urobilinogen (0.2) E.U./dL Ur Leukocyte Esterase (NEGATIVE) Urine RBC (0-5/HPF) Urine WBC (0-5/HPF) Ur Squamous Epith Cells (0-5/HPF) Urine Bacteria (None) Ur Culture Indicated? COVID-19 PCR (Negative) Blood Type 02/28/20 02/28/20 02/28/20 Range/Units 11:29 11:29 12:16 WBC (4.5-11.0) X10^3/uL RBC (4.0-5.2) X10^6/uL Hgb (12.0-16.0) g/dL Hct (36-46) % MCV (80-100) fL MCH (26-34) PG MCHC (30-36) % RDW (11.6-14.8) % Plt Count (150-400) X10^3/uL Neut % (Auto) Lymph % (Auto) [place] % (Auto) Eos % (Auto) Baso % (Auto) Lymph # (Auto) [place] # (Auto) Baso # (Auto) Total Counted Seg Neutrophils % (38-70) % Band Neutrophils % (3-7) % Lymphocytes % (Manual) (25-45) % Atypical Lymphs % ( - 0) % Monocytes % (Manual) (2-11) % Neutrophils # (Manual) (3230-4171) /uL Dohle Bodies Platelet Estimate RBC Morphology Poikilocytosis Anisocytosis PT (10.1-12.7) SECONDS INR (0.9-1.3) APTT (26.4-36.2) SECONDS Sodium (137-145) mmol/L Potassium (3.4-5.1) mmol/L Chloride (98-107) mmol/L Carbon Dioxide (22-32) mmol/L BUN (7-17) mg/dL Creatinine (0.52-1.04) mg/dL Estimated GFR (>60) mL/min BUN/Creatinine Ratio (6-22) Glucose (80-110) mg/dL Lactate 1.3 (0.7-2.1) mmol/L Calcium (8.4-10.2) mg/dL Total Bilirubin (0.2-1.3) mg/dL AST (14-36) IU/L ALT (<35) IU/L Alkaline Phosphatase (38-126) U/L Total Creatine Kinase (30-135) U/L CK-MB (CK-2) CK-MB (CK-2) Rel Index Troponin I (0.01-0.034) ng/mL Total Protein (6.3-8.2) g/dL Albumin (3.5-5.0) g/dL Globulin (1.7-4.1) g/dL Albumin/Globulin Ratio (1.0-2.8) Lipase (23-300) U/L Procalcitonin 32.64 H (<0.5) ng/mL Urine Color Urine Appearance Urine pH (4.5-8.0) Ur Specific [place] (1.000-1.035) Urine Protein (Negative) Urine Glucose (UA) (Negative) g/dL Urine Ketones (NEGATIVE) Urine Occult Blood (Negative) Urine Nitrate (Negative) Urine Bilirubin (NEGATIVE) Urine Urobilinogen (0.2) E.U./dL Ur Leukocyte Esterase (NEGATIVE) Urine RBC (0-5/HPF) Urine WBC (0-5/HPF) Ur Squamous Epith Cells (0-5/HPF) Urine Bacteria (None) Ur Culture Indicated? COVID-19 PCR (Negative) Blood Type A Positive 02/28/20 02/28/20 Range/Units 12:40 13:19 WBC (4.5-11.0) X10^3/uL RBC (4.0-5.2) X10^6/uL Hgb (12.0-16.0) g/dL Hct (36-46) % MCV (80-100) fL MCH (26-34) PG MCHC (30-36) % RDW (11.6-14.8) % Plt Count (150-400) X10^3/uL Neut % (Auto) Lymph % (Auto) [place] % (Auto) Eos % (Auto) Baso % (Auto) Lymph # (Auto) [place] # (Auto) Baso # (Auto) Total Counted Seg Neutrophils % (38-70) % Band Neutrophils % (3-7) % Lymphocytes % (Manual) (25-45) % Atypical Lymphs % ( - 0) % Monocytes % (Manual) (2-11) % Neutrophils # (Manual) (9553-0995) /uL Dohle Bodies Platelet Estimate RBC Morphology Poikilocytosis Anisocytosis PT (10.1-12.7) SECONDS INR (0.9-1.3) APTT (26.4-36.2) SECONDS Sodium (137-145) mmol/L Potassium (3.4-5.1) mmol/L Chloride (98-107) mmol/L Carbon Dioxide (22-32) mmol/L BUN (7-17) mg/dL Creatinine (0.52-1.04) mg/dL Estimated GFR (>60) mL/min BUN/Creatinine Ratio (6-22) Glucose (80-110) mg/dL Lactate (0.7-2.1) mmol/L Calcium (8.4-10.2) mg/dL Total Bilirubin (0.2-1.3) mg/dL AST (14-36) IU/L ALT (<35) IU/L Alkaline Phosphatase (38-126) U/L Total Creatine Kinase (30-135) U/L CK-MB (CK-2) CK-MB (CK-2) Rel Index Troponin I (0.01-0.034) ng/mL Total Protein (6.3-8.2) g/dL Albumin (3.5-5.0) g/dL Globulin (1.7-4.1) g/dL Albumin/Globulin Ratio (1.0-2.8) Lipase (23-300) U/L Procalcitonin (<0.5) ng/mL Urine Color Yellow Urine Appearance Clear Urine pH 6.0 (4.5-8.0) Ur Specific [place] <=1.005 (1.000-1.035) Urine Protein Negative (Negative) Urine Glucose (UA) Negative (Negative) g/dL Urine Ketones Negative (NEGATIVE) Urine Occult Blood Trace-lysed (Negative) Urine Nitrate Negative (Negative) Urine Bilirubin Negative (NEGATIVE) Urine Urobilinogen 0.2 (0.2) E.U./dL Ur Leukocyte Esterase Negative (NEGATIVE) Urine RBC None seen (0-5/HPF) Urine WBC 0-1/hpf (0-5/HPF) Ur Squamous Epith Cells 0-1 /hpf (0-5/HPF) Urine Bacteria Few (2-10) H (None) Ur Culture Indicated? Cult not indicated COVID-19 PCR Negative (Negative) Blood Type Imaging Data CT scan - head: Radiologist Impression: [address] [id number] Scan ReportSigned Patient: Leigh Arredondo EMR#: [id number]: [id number]:[id number]/Sex: 74 / FDate of Service: 02/28/20Loc: EDAccession Number: [id number] Procedure: CT head/brain wo con Ordering Provider: Rebecca Smart D.O. PROCEDURE: CT HEAD/BRAIN WO CON INDICATIONS: weakness, intermittent fevers, lymphoma, platelets 11 TECHNIQUE: Noncontrast 4.5 mm thick angled axial sections acquired from the foramen magnum to the vertex, with coronal and sagittal reformats. For radiation dose reduction, the following was used: automated exposure control, adjustment of mA and/or kV according to patient size. COMPARISON: [facility], CR, XR CHEST 1V, 02/28/2020, 12:00. FINDINGS: Image quality: Excellent. CSF spaces: Basal cisterns are patent. No extra-axial fluid collections. The ventricles are symmetric in size and shape. Brain: No intracranial bleeds or masses. There is cerebral volume loss for age, with resultant ventricular and sulcal prominence. There are periventricular and deep white matter chronic small vessel ischemic changes. There is intracranial internal carotid artery atherosclerosis. Skull and face: Calvarium and visualized facial bones appear intact, without suspicious lesions. Sinuses: Visualized sinuses and mastoids are clear. IMPRESSION: No acute intracranial hemorrhage is seen. No acute intracranial process is seen. Note is made of age-appropriate brain parenchymal volume loss and chronic small vessel ischemic changes. Dictated by: Kingsley Villa M.D. on 02/28/2020 at 12:31 Approved by: Kingsley Villa M.D. on 02/28/2020 at 12:32 Chest x-ray: Radiologist Impression: [address] [id number] ReportSigned Patient: Leigh Arredondo EMR#: [id number]: 7Acct:[id number]/Sex: 74 / FDate of Service: 02/28/20Loc: EDAccession Number: [id number] Procedure: XR chest 1V Ordering Provider: Rebecca Smart D.O. PROCEDURE: XR CHEST 1V INDICATIONS: chest pain TECHNIQUE: One view of the chest was acquired. COMPARISON: [facility], NM, NM PET CT FUSION SKULL 2 THIGH, 01/13/2020, 15:05. [facility], CT, CT CHEST ABD PEL W CON, 12/02/2019, 9:36. [facility], CT, CT CHEST ABD PEL W CON, 09/18/2019, 10:37. [facility], CR, XR CHEST 1V, 05/15/2018, 15:10. [facility], CR, XR CHEST 1V, 05/20/2018, 13:20. FINDINGS: The patient is slightly rotated to the left for this study. Surgical changes and devices: There is a stable right-sided chest port. Lungs and pleura: Minimal interstitial prominence can be seen. No pleural effusions or pneumothorax. Mediastinum: Mediastinal contours appear normal. Heart size is normal. Bones and chest wall: No suspicious bony lesions. Degenerative changes are seen throughout, which are worst involving the left shoulder. Overlying soft tissues appear unremarkable. IMPRESSION: Mild interstitial prominence can be seen. Please consider short-term follow-up. Postoperative and degenerative changes are seen. Dictated by: Kingsley Villa M.D. on 02/28/2020 at 11:11 Approved by: Kingsley Villa M.D. on 02/28/2020 at 11:12 ECG Data Attestation: I personally reviewed and interpreted this ECG as follows: Prior ECG tracings: available for review Interpretation: Sinus rhythm, rate of 83, W[place] 172, QRS is 76 and QTC of 446. No ST elevation or depression appreciated nonspecific change. Prior EKG from 02/22/20 appears similar. MDM Narrative Medical decision making narrative: Pleasant 74-year-old with known lymphoma with pancytopenia increased weakness, fevers overnight and no obvious source of infection. Patient is not neutropenic but her white count is 1.4, with her recent fevers and an elevated procalcitonin case was discussed with Oncology and they recommend admission for IV antibiotics to treat as a neutropenic fever until cultures are resulted. Patient does require transfusion for platelets tod ay with a count of 11 which was confirmed with Oncology. She does not have any active bleeding currently, head CT was included which was negative to rule out any spontaneous bleed. She is currently asymptomatic in terms of bleeding at this time. Her hemoglobin is low but does not require transfusion at this time. Patient has mild hyponatremia. She was given fluids, platelets have been ordered and are coming from [place] which takes several hours. Consulted with Dr. Shipley regarding antibiotic choice and he has accepted her for observation with request for oncology to follow with patient. Discharge Plan Departure Patient Disposition: Admitted as Observation Clinical Impression: Pancytopenia, Fever, Thrombocytopenia Admit Date/Time: 02/28/20 15:45 Admit Provider: Mihir Alejandra
[2020-02-28 12:06] LABS: Anisocytosis 2+; Dohle Bodies 1+; Platelet Estimate Decreased on smear; Poikilocytosis 1+
--- NOTE | 2020-02-28 12:20 | DI.CT.S_ITS ---
PROCEDURE: CT HEAD/BRAIN WO CON INDICATIONS: weakness, intermittent fevers, lymphoma, platelets 11 TECHNIQUE: Noncontrast 4.5 mm thick angled axial sections acquired from the foramen magnum to the vertex, with coronal and sagittal reformats. For radiation dose reduction, the following was used: automated exposure control, adjustment of mA and/or kV according to patient size. COMPARISON: [facility], CR, XR CHEST 1V, 02/28/2020, 12:00. FINDINGS: Image quality: Excellent. CSF spaces: Basal cisterns are patent. No extra-axial fluid collections. The ventricles are symmetric in size and shape. Brain: No intracranial bleeds or masses. There is cerebral volume loss for age, with resultant ventricular and sulcal prominence. There are periventricular and deep white matter chronic small vessel ischemic changes. There is intracranial internal carotid artery atherosclerosis. Skull and face: Calvarium and visualized facial bones appear intact, without suspicious lesions. Sinuses: Visualized sinuses and mastoids are clear. IMPRESSION: No acute intracranial hemorrhage is seen. No acute intracranial process is seen. Note is made of age-appropriate brain parenchymal volume loss and chronic small vessel ischemic changes. Dictated by: Kingsley Villa M.D. on 02/28/2020 at 12:31 Approved by: Kingsley Villa M.D. on 02/28/2020 at 12:32
[2020-02-28 12:32] LABS: Lactate (Lactic Acid) 1.3 mmol/L (0.7-2.1)
[2020-02-28 12:52] LABS: Procalcitonin 32.64 ng/mL (<0.5)
[2020-02-28 13:40] LABS: COVID19 -Nasal RAPID Negative (Negative)
[2020-02-28 13:42] LABS: RBC Urine None Seen (0-5/HPF)
[2020-02-28 13:45] LABS: Appearance Urine UA CLEAR; Bilirubin Urine UA NEGATIVE (NEGATIVE); Color Urine UA YELLOW; Glucose Urine UA NEGATIVE (Negative); Ketones Urine UA NEGATIVE (NEGATIVE); Leukocyte Esterase Urine UA NEGATIVE (NEGATIVE); Nitrite Urine UA NEGATIVE (Negative); Occult Blood Urine UA TRACE-LYSED (Negative); Protein Urine UA NEGATIVE (Negative); Specific Gravity Urine UA <=1.005 (1.000-1.035); Urobilinogen Urine UA 0.2 E.U./dL (0.2)
[2020-02-28 13:59] LABS: Bacteria Urine Few (2-10); Culture Indicated Urine Cult Not Indicated; Squamous Epithelial Cell Urine 0-1 /HPF (0-5/HPF); WBC Urine 0-1/HPF (0-5/HPF)
[2020-02-28] MEDS: CEFEPIME 2 GM in SODIUM CHLORIDE 0.9% 100 ML 200 ML IV (15:03)
[2020-02-28] MEDS: VANCOMYCIN 1,000 MG/200 ML PIGGYBACK 200 MG IV (15:39)
--- NOTE | 2020-02-28 16:42 | PC.NURSE ---
Addendum entered by Monica Dhaliwal R.N. 02/28/20 23:36: Secured pt's valuables with RN Abigail. During this process, pt was noted to have shaking chills. Oral temp 100.8 with audible expiratory wheezes and occasional dry cough. Room air oxygen level 92-95%. Hospitalist Issa was informed. Tylenol order changed to every 4 hours and 650 mg po tylenol was administered as well as 02 @ 2L per nc per hospitalist suggestion. R.T. to consult per hospitalist. Addendum entered by Monica Dhaliwal R.N. 02/28/20 21:38: Pt's platelets infused without difficulty. Pt does have scattered flat irregularly shaped red rash to anterior thighs BL. Pt states this is not new, but from 240 mg diltiazem dose that now has been decreased. Hospitalist Issa consulted re pt's evening dose of diltiazem to begin tonight as pt has not dose today. Addendum entered by Monica Dhaliwal R.N. 02/28/20 18:08: Verbal order from Dr. Alejandra to place pt on telemetry. This was done. Addendum entered by Monica Dhaliwal R.N. 02/28/20 17:45: Telemetry order generated in E.D. Awaiting admitting hospitalist's orders re telemetry. Pt has been seen. Original Note: Pt to room 210 from E.R. awake, alert. Tremulous and unsteady on feet. States having issues with balance. Assisted into bed and bed alarm set and pt instructed not to attempt out of bed without calling for staff assistance. Call light available and pt aware of how to use. Pt denies pain @ this time. Numerous scattered, scabbed lesions to trunk and extremities. Vancomycin infusing as ordered to right forearm iv site. Portacath right anterior chest not accessed and pt reports does not want this accessed or used this hospital stay. Vital signs taken and recorded on white board for MD. Dr. Alejandra in to see patient. Manual bp cuff used d/t pt's decreased platelets. Per E.[facility]. report, awaiting platelets from [place].
--- NOTE | 2020-02-28 18:04 | P.HP_ITS ---
History of Present Illness History of Present Illness Date Patient Seen: 02/28/20 Time Patient Seen: 18:04 Chief complaint: dehydration, needs fluids Narrative: Leigh Arredondo is a 74-year-old female with a past medical history of SVT, multiple hematologic malignancies including follicular lymphoma in 2008, seemingly regressed but subsequently developed a Hodgkin lymphoma in 2017 which is stage IV who presented to the emergency room with worsening weakness and fa tigue over the past few months. She has also been dealing with intermittent fever since her diagnosis in 2017, but these of seemingly been worse. High for her Hodgkin's disease she has recently trialed Keytruda but this was stopped with a change to brentuximab which she received on 02/09. There is seemingly some debate about her actual hematologic malignancy as some biopsies have shown consistency with a diffuse large B-cell lymphoma, and the patient was supposed to have follow-up this week with Dr. Haider at [facility] for a review of her final pathology and updated treatment plan. However, she presented to the emergency room with continued weakness and fevers. She has a chronic cough which is unchanged, and states that her fevers have really been coming on over the past 2 years, but may have been worsened recently. She endorsed an episode of nausea with her fever about a week ago but denies any abdominal pain, dysuria, urinary frequency, productive cough, headaches, neck pain, chest pain, shortness of breath. In the emergency room, patient has been febrile to 101, with borderline low blood pressures but remainder of her vital signs remain unremarkable. CBC showed pancytopenia with a WBC of 1.4, absolute neutrophil count 1120, hemoglobin of 8.5, and a platelet count of 11. Chemistries showed a mild hyponatremia with a sodium of 131, AST mildly elevated at 53, troponin was n egative, procalcitonin was elevated at 32.64. Urinalysis was unremarkable. COVID-19 testing was negative. Chest x-ray shows a mild interstitial predominance. CT head was unremarkable. EKG shows normal sinus rhythm. Patient was admitted for neutropenic fever, given a dose of cefepime and vancom ycin in the emergency room, as well as some IV fluids. Patient History Medical History Follicular non-Hodgkin's lymphoma SVT (supraventricular tachycardia) Surgical History History of removal of Port-a-Cath Family & Social History Social History: household members children Prior Living Arrangements House Safety & Behavioral: Feels Safe in Current Yes Environment Been Physically Hurt or No Threatened By a Person Suicidal Ideation Description None Suicide Plan Description No Plan Tobacco & Substance use: Smoking Status Former smoker alcohol intake never alcohol intake frequency holiday/special occasion Substance Use Type does not use Meds Home Medications and Allergies Home Medications Medication Instructions Recorded Confirmed Type diltiazem HCl 180 mg 180 mg PO QPM #90 cap 06/26/19 02/28/20 Rx capsule,extended release 24 hr Allergies Allergy/AdvReac Type Severity Reaction Status Date / Time NSAIDS (Non-Steroidal Allergy Intermediate HIVES Verified 02/28/20 10:27 Anti-Inflamma [NSAIDS (NON-STEROIDAL ANTI-INFLAMMA] amoxicillin [AMOXICILLIN] Allergy Mild rash Verified 02/28/20 10:27 aspirin Allergy Verified 02/28/20 10:27 Review of Systems Review of Systems Narrative: All other systems reviewed with the patient and are negative unless otherwise stated. Exam Vital Signs (past 8 hours): - 02/28/20 10:10 02/28/20 10:11 02/28/20 10:23 Temperature 98.3 F Pulse Rate 90 87 Respiratory Rate 18 Blood Pressure 130/64 130/64 Pulse Oximetry 96 98 02/28/20 10:30 02/28/20 11:00 02/28/20 11:29 Temperature Pulse Rate 84 84 83 Respiratory Rate Blood Pressure 92/53 L Pulse Oximetry 96 97 97 02/28/20 11:30 02/28/20 12:00 02/28/20 12:30 Temperature Pulse Rate 87 82 87 Respiratory Rate 19 20 Blood Pressure 97/55 L 103/54 L Pulse Oximetry 97 96 97 02/28/20 13:00 02/28/20 13:22 02/28/20 13:30 Temperature Pulse Rate 79 81 80 Respiratory Rate 19 18 18 Blood Pressure 98/64 102/60 Pulse Oximetry 97 97 97 02/28/20 14:00 02/28/20 14:30 02/28/20 16:00 Temperature 101.0 F H Pulse Rate 80 77 Respiratory Rate 19 24 20 Blood Pressure 100/59 L 100/55 L Pulse Oximetry 97 99 Oxygen Delivery Method Room Air Narrative Exam Narrative: GENERAL APPEARANCE: Thin-appearing, elderly female, in no acute distress. BMI 18.9. SKIN: Inspection of the skin reveals multiple scattered chronic skin lesions which are raised with a black eschar, some with surrounding erythema but minimally tender. These are known to be malignant per chart review and per patient. HEENT: Normocephalic atraumatic, extraocular muscles are intact, oropharynx is clear and mucous membranes are moist, neck is supple without adenopathy NECK: Supple and symmetric. There was no thyroid enlargement, and no tenderness, or masses were felt. CHEST: Normal AP diameter and normal contour without any kyphoscoliosis. Right chest Port-A-Cath without tenderness, surrounding erythema, or induration. LUNGS: Auscultation of the lungs revealed no wheezes, rhonchi, or rales. CARDIOVASCULAR: There was a regular rate and rhythm without any murmurs, gallops, rubs. Peripheral pulses were 2+ and symmetric. ABDOMEN: Soft and nontender with normal bowel sounds. No ascites was noted. MUSCULOSKELETAL: There was no joint tenderness or effusions noted. EXTREMITIES: No cyanosis, clubbing or edema. NEUROLOGIC: Alert and oriented x 3. Likely mild cognitive impairment. No focal neurological deficits. Objective ECG Impression: Normal sinus rhythm Imaging Chest x-ray: Radiologist's impression: Mild interstitial prominence can be seen. Please consider short-term follow-up. Postoperative and degenerative changes are seen. CT scan - head: Radiologist's impression: No acute intracranial hemorrhage is seen. No acute intracranial process is seen. Note is made of age-appropriate brain parenchymal volume loss and chronic small vessel ischemic changes. Labs Result Diagrams: 02/28/20 11:29 02/28/20 11:29 Labs: Laboratory Results - last 24 hr 02/28/20 02/28/20 02/28/20 11:29 11:29 11:29 WBC 1.4 L* RBC 2.92 L Hgb 8.5 L Hct 25.7 L MCV 87.9 MCH 28.9 MCHC 32.9 RDW 16.6 H Plt Count 11 L* Neut % (Auto) Not Reportable Lymph % (Auto) Not Reportable Swisher % (Auto) Not Reportable Eos % (Auto) Not Reportable Baso % (Auto) Not Reportable Lymph # (Auto) Not Reportable Swisher # (Auto) Not Reportable Baso # (Auto) Not Reportable Total Counted 50 Seg Neutrophils % 72.0 H Band Neutrophils % 8.0 H Lymphocytes % (Manual) 12.0 L Atypical Lymphs % 4.0 H Monocytes % (Manual) 4.0 Neutrophils # (Manual) 1120 L Dohle Bodies 1+ H Platelet Estimate Decreased on smear RBC Morphology See below Poikilocytosis 1+ H Anisocytosis 2+ H PT 15.6 H INR 1.4 H APTT 32 Sodium 131 L Potassium 3.4 Chloride 100 Carbon Dioxide 27 BUN 15 Creatinine 0.65 Estimated GFR > 60.0 BUN/Creatinine Ratio 23.1 H Glucose 90 Lactate Calcium 9.2 Total Bilirubin 1.2 AST 53 H ALT 24 Alkaline Phosphatase 74 Total Creatine Kinase 47 CK-MB (CK-2) TNP CK-MB (CK-2) Rel Index TNP Troponin I < 0.012 Total Protein 5.3 L Albumin 2.9 L Globulin 2.4 Albumin/Globulin Ratio 1.2 Lipase 53 Procalcitonin Urine Color Urine Appearance Urine pH Ur Specific Calhoun Urine Protein Urine Glucose (UA) Urine Ketones Urine Occult Blood Urine Nitrate Urine Bilirubin Urine Urobilinogen Ur Leukocyte Esterase Urine RBC Urine WBC Ur Squamous Epith Cells Urine Bacteria Ur Culture Indicated? COVID-19 PCR Blood Type 02/28/20 02/28/20 02/28/20 11:29 11:29 12:16 WBC RBC Hgb Hct MCV MCH MCHC RDW Plt Count Neut % (Auto) Lymph % (Auto) Swisher % (Auto) Eos % (Auto) Baso % (Auto) Lymph # (Auto) Swisher # (Auto) Baso # (Auto) Total Counted Seg Neutrophils % Band Neutrophils % Lymphocytes % (Manual) Atypical Lymphs % Monocytes % (Manual) Neutrophils # (Manual) Dohle Bodies Platelet Estimate RBC Morphology Poikilocytosis Anisocytosis PT INR APTT Sodium Potassium Chloride Carbon Dioxide BUN Creatinine Estimated GFR BUN/Creatinine Ratio Glucose Lactate 1.3 Calcium Total Bilirubin AST ALT Alkaline Phosphatase Total Creatine Kinase CK-MB (CK-2) CK-MB (CK-2) Rel Index Troponin I Total Protein Albumin Globulin Albumin/Globulin Ratio Lipase Procalcitonin 32.64 H Urine Color Urine Appearance Urine pH Ur Specific Calhoun Urine Protein Urine Glucose (UA) Urine Ketones Urine Occult Blood Urine Nitrate Urine Bilirubin Urine Urobilinogen Ur Leukocyte Esterase Urine RBC Urine WBC Ur Squamous Epith Cells Urine Bacteria Ur Culture Indicated? COVID-19 PCR Blood Type A Positive 02/28/20 02/28/20 12:40 13:19 WBC RBC Hgb Hct MCV MCH MCHC RDW Plt Count Neut % (Auto) Lymph % (Auto) Swisher % (Auto) Eos % (Auto) Baso % (Auto) Lymph # (Auto) Swisher # (Auto) Baso # (Auto) Total Counted Seg Neutrophils % Band Neutrophils % Lymphocytes % (Manual) Atypical Lymphs % Monocytes % (Manual) Neutrophils # (Manual) Dohle Bodies Platelet Estimate RBC Morphology Poikilocytosis Anisocytosis PT INR APTT Sodium Potassium Chloride Carbon Dioxide BUN Creatinine Estimated GFR BUN/Creatinine Ratio Glucose Lactate Calcium Total Bilirubin AST ALT Alkaline Phosphatase Total Creatine Kinase CK-MB (CK-2) CK-MB (CK-2) Rel Index Troponin I Total Protein Albumin Globulin Albumin/Globulin Ratio Lipase Procalcitonin Urine Color Yellow Urine Appearance Clear Urine pH 6.0 Ur Specific Calhoun <=1.005 Urine Protein Negative Urine Glucose (UA) Negative Urine Ketones Negative Urine Occult Blood Trace-lysed Urine Nitrate Negative Urine Bilirubin Negative Urine Urobilinogen 0.2 Ur Leukocyte Esterase Negative Urine RBC None seen Urine WBC 0-1/hpf Ur Squamous Epith Cells 0-1 /hpf Urine Bacteria Few (2-10) H Ur Culture Indicated? Cult not indicated COVID-19 PCR Negative Blood Type Assessment & Plan Assessment & Plan narrative: Leigh Arredondo is a 74-year-old female with a past medical history SVT, multiple hematologic malignancies including follicular lymphoma in 2008, seemingly regressed but subsequently developed a Hodgkin lymphoma in 2017 which is stage IV who presented to the emergency room with worsening weakness and fatigue over the past few months, as well as recurrent fever who is admitted now with neutropenic fever. 1. Neutropenic fever, acute, present on admission -Unclear if this is truly infectious in nature as patient has been having fevers over the prior 2 years likely secondary to her Hodgkin's lymphoma. She does have a chronic cough but no overt etiology. And neutropenia/pancytopenia i s more likely a result of her brentuximab which she received her 1st dose of on February 09. -will start antibiotics with cefepime 2 g every 24 hours pending culture results. Patient is hemodynamically stable and there is no need for continued vancomycin, she received a dose in the emergency room. -will consult oncology service in the morning. -chest x-ray does not show any focal infiltrates, urinalysis is unremarkable, and history and physical does not reveal any revealing source. Her Port-A-Cath does not appear to be infected on exam. -neutrophil count is 1120 on admission, consistent with mild neutropenia. Suspect pancytopenia is related to Brentuximab infusion. -procalcitonin is elevated to 32.64. 2. Pancytopenia, acute, present on admission -patient with initial CBC showing leukopenia, white count of 1.4 with an absolute neutrophil count of 1120. Hemoglobin of 8.5, and platelet count of 11. All of these have dipped quite dramatically since her infusion of brentuximab on 02/09 and have continued to worsen. There may be an infectious component given her continued fevers and have started the patient on antibiotics as noted above pending evaluation. -will continue to follow blood counts, transfuse platelets for a count less than 10 or less than 50 if active bleeding. -will consult Hematology Service as noted above. 3. History of SVT, chronic, not present on admission -patient has recurrent SVT, and has sought care in the emergency room multiple times which has been relieved with adenosine. She currently takes diltiazem which we will continue. -will monitor on telemetry 4. suspected chronic protein calorie malnutrition - albumin 2.9 on admission, active malignancy, BMI 18.9 - senior major gifts officer consultation ordered. 5. Hodgkin's lymphoma, active, chronic, present on admission - patient currently being managed by oncology service with Dr. Rose, also followed at [facility] Dr. Haider. - most recent immunotherapy given 02/09, Brentuximab. Previously on Keytruda. Not recommended for bone marrow transplant per notes and patient. - oncology consult as noted above. 6. Chronic fatigue -suspect related to her progressive Hodgkin's lymphoma, possibly related to wor sening anemia, although she does have a mild congestive appearance on her chest x-ray will add on a proBNP to morning labs. She has no evidence of over volume overload on exam to suggest heart failure. Code: Full, as discussed with the patient, however she is seemingly on clear about her prior advanced directive. She will have her son bring this in tomorrow. Her son is her surrogate decision maker. DVT: Chemical prophylaxis On hold given thrombocytopenia Dispo: Patient is admitted under inpatient status as her stay is expected to exceed 2 midnights. FEN/GI: Heart healthy diet Quality VTE Deep Vein Thrombosis/Pulmonary Embolism Present on Admission: No
[2020-02-28] MEDS: ACETAMINOPHEN 325 MG TABLET 650 MG PO ×2 (18:34→23:51)
[2020-02-28] MEDS: dilTIAZem CD 180 MG CAP PO (22:10)
--- NOTE | 2020-02-28 23:25 | PC.NURSE ---
Pt shaking and febrile at 2325. Acetaminophen given by RENETTA Anderson. Temp oral @ 99.6 david to 100.8 w/in 30 min. Shivering normal per pt report, fever not normal. Pt hypotensive but asymptomatic, drinking and eating appropriately. Anxious. Slight cough during chill episodes, normal per pt report, present since 12/2019, COVID neg.
[2020-02-29] VITALS (16 sets, daily range): BP systolic 93–132; BP diastolic 54–68; PULSE 71–112; RESP 14–20; TEMP 36.5–39.6; O2SAT 93–99
--- NOTE | 2020-02-29 00:28 | PC.NURSE ---
Addendum entered by Holley Colorado R.N. 02/29/20 06:42: 0640 Potassium 40mEq with NS is currently infusing. Pt c/o stinging at IV site while at 130mL/h. Titrated infusion down to 100mL/h. Addendum entered by Holley Colorado R.N. 02/29/20 06:03: 0600 The patient's gown and linens have had to be changed 4 times during shift r/t diaphoresis. However; the patient is now afebrile. Addendum entered by Holley Colorado R.N. 02/29/20 04:26: 0400 The patient's temperature is now at 99.2F. She reports she is feeling quite a bit better, is no longer shaky and has some of her strength back. She does not appear to be confused like she was at the start of shift. She is also calmer. IV antibiotic is now infusing. Original Note: 2300 Received safe hand-off report. The patient is currently in the process of trying to be moved to the bedside commode to void but is too weak to transfer safely; instructed TAMPER OPERATOR to use bedpan for now until feeling a bit better. In the process of trying to move her to the bedside commode, she vomited 10cc, mixed green color. She has a fever of 103.2F and received tylenol 20 minutes prior. I added ice packs to each axillary region and a cool cloth on her forehead. She voided 300cc on the bedpan. The patient is anxious, seems mildly confused, repeating questions and forgetful of things that happened just a few minutes prior. She didn't remember taking tylenol, she didn't remember voiding on the bedpan. Her lung sounds are clear in the upper lobes, anterior. She is now resting in bed. No s/sx of distress. Will continue to monitor closely.
[2020-02-29] MEDS: CEFEPIME 2 GM in SODIUM CHLORIDE 0.9% 100 ML 200 ML IV ×2 (03:59→14:42)
[2020-02-29] MEDS: ACETAMINOPHEN 325 MG TABLET 650 MG PO ×4 (03:59→21:39)
[2020-02-29 05:54] LABS: Alanine Aminotransferase 21 IU/L (<35); Albumin 2.4 g/dL (3.5-5.0); Alkaline Phosphatase 73 U/L (38-126); Aspartate Aminotransferase 47 IU/L (14-36); BUN Creatinine Ratio 18.2 (6-22); Bilirubin Total 0.9 mg/dL (0.2-1.3); Bilirubin Unconjugated 0.6 mg/dL (0.0-1.1); Blood Urea Nitrogen 12 mg/dL (7-17); Calcium 9.1 mg/dL (8.4-10.2); Carbon Dioxide 29 mmol/L (22-32); Chloride 106 mmol/L (98-107); Estimated Glomerular Filt Rate > 60.0 mL/min (>60); Globulin 2.3 g/dL (1.7-4.1); Glucose 106 mg/dL (80-110); HEMOLYSIS < 15 (0-50); Magnesium 1.9 mg/dL (1.6-2.3); Potassium 3.3 mmol/L (3.4-5.1); Sodium 135 mmol/L (137-145); Total Protein 4.7 g/dL (6.3-8.2)
[2020-02-29 06:03] LABS: NT-proBNP (BNP-Adult 18+) 1310 pg/mL (<125)
[2020-02-29] MEDS: POTASSIUM CHLORIDE 40 MEQ in SODIUM CHLORIDE 0.9% 500 ML 100 ML IV (06:14)
[2020-02-29 06:16] LABS: Hematocrit 22.5 % (36-46); Hemoglobin 7.4 g/dL (12.0-16.0); Mean Corpuscular HGB Conc 33.1 % (30-36); Mean Corpuscular Hemoglobin 29.5 PG (26-34); Mean Corpuscular Volume 89.3 fL (80-100); Red Blood Cell Count 2.52 X10^6/uL (4.0-5.2); Red Cell Distribution Width 17.1 % (11.6-14.8)
[2020-02-29 06:23] LABS: White Blood Cell Count 1.5 X10^3/uL (4.5-11.0)
[2020-02-29 06:24] LABS: Add Manual Diff / Slide Review YES; Platelet Count 14 X10^3/uL (150-400)
[2020-02-29 06:29] LABS: TSH w/ Reflex to FT4 1.25 uIU/mL (0.47-4.68)
[2020-02-29 06:52] LABS: Hypochromasia 2+; Neutrophils Absolute Manual 1200 /uL (3000-5900); Platelet Estimate Decreased on smear; Total Cells Counted 100
[2020-02-29 06:53] LABS: Anisocytosis 2+
[2020-02-29 07:02] LABS: Vitamin B12 Reflex MMA if <400 899 pg/mL (239-931)
--- NOTE | 2020-02-29 07:16 | DI.ECHO.S_ITS ---
[facility]---------+ [facility] +---------+ : : [address] : [place] : : : : [id number] : : : : Phone: [phone] Echocardiogram Report + + :Name: MARCELINO HSIEH Study Date: 02/29/2020 Height: 64 in : :[facility] Weight: 110 lb : : Gender: Female BSA: 1.5 m2 : :: 1945 Age: 74 yrs BP: 107/65 mmHg: :Reason For Study: ELEVATED PROBNP, WAKNESS, FATIGUE : :Ordering Physician: JACQUELINE, : :MRA MAJANO Performed By: Jenni Crespo : :Referring: MAR PHILLIPS : + + Interpretation Summary Normal sinus rhythm. Normal LV size, wall thickness, wall motion and left ventricular systolic function. Ejection fraction is 60-65%. Mild left atrial enlargement. Otherwise normal chamber sizes. No significant valvular abnormalities. Compared to prior study January 08, 2013, no significant changes have occurred. Procedure: A two-dimensional transthoracic echocardiogram with color flow and Doppler was performed. The study quality was technically adequate. Comparison is made with the echocardiogram of 01/08/2013. The patient was in sinus rhythm with heart rates between 69-80 bpm during the exam. Left Ventricle: The left ventricle is normal in size and wall thickness. Proximal septal thickening is noted. The ejection fraction is estimated to be 60-65%. Diastolic parameters suggest probable normal left ventricular diastolic function and normal filling pressures. Right Ventricle: The right ventricle is normal in size and function. Atria: The left atrium is mildly dilated. Right atrial size is normal. There is no Doppler evidence for an interatrial shunt. Mitral Valve: The mitral valve leaflets appear mildly thickened, but open well. The mitral valve leaflets are slightly calcified. There is mild mitral regurgitation. Aortic Valve: The aortic valve is slightly calcified. The aortic valve opens well. There is no aortic valve stenosis. No aortic regurgitation is present. Tricuspid Valve: The tricuspid valve is normal in structure and function. Pulmonary artery pressures cannot be estimated because of the lack of a measurable TR jet velocity but the IVC suggests a CVP of around 8 mmHg. There is trace tricuspid regurgitation. Pulmonic Valve: The pulmonic valve is not well seen, but is grossly normal. There is mild pulmonic regurgitation. Great Vessels: The aortic root is normal size. The ascending aorta could not be visualized. The IVC is of normal diameter and collapses less than 50% with a sniff. This suggests a right atrial pressure of 8 mm Hg. Pericardium/ Pleura There is no pericardial effusion. There is no pleural effusion. MMode/2D Measurements & Calculations LVIDd: 4.4 cm LVOT diam: 2.0 cm LVIDs: 2.8 cm Ao root diam: 2.9 cm FS: 37.4 % Ao Arch Diam (Prox Trans): 3.2 cm EPSS: 0.41 cm IVSd: 0.84 cm LVPWd: 0.75 cm LV pichardo. diameter/BSA (cm/m^2): 2.9 LV sys. diameter/BSA (cm/m^2): 1.8 LA A2 area: 21.8 cm2 RA long axis: 4.7 cm LA A4 area: 20.0 cm2 RA area: 14.0 cm2 LA length (vol): 5.4 cm RA vol: 35.3 ml LA vol: 67.9 ml RA : 23.3 ml/m2 LA vol index: 44.7 ml/m2 IVC diam: 1.7 cm RVD1 (basal): 3.1 cm TAPSE: 2.3 cm Doppler Measurements & Calculations Ao V2 max: 156.2 cm/sec LVOT Max Bertin: 114.2 cm/sec Ao V2 mean: 99.0 cm/sec LV V1 max P.2 mmHg Ao max P.8 mmHg LV V1 VTI: 24.5 cm Ao mean P.8 mmHg LAMIN(I,D): 2.5 cm2 Ao V2 VTI: 30.1 cm LAMIN(V,D): 2.3 cm2 sev ratio: 0.81 LAMNI indexed to BSA (cm^2/m^2): 1.7 MV E max bertin: 109.0 cm/sec PA V2 max: 69.9 cm/sec MV A max bertin: 81.3 cm/sec PA V2 mean: 48.2 cm/sec MV E/A: 1.3 PA mean P.1 mmHg Med Peak E' Bertin: 9.7 cm/sec PA pr(Accel): 19.1 mmHg E/E' med: 11.3 Lat Peak E' Bertin: 11.7 cm/sec E/E' lat: 9.3 E/e' average: 10.3 MV dec time: 0.17 sec SV(LVOT): 75.8 ml Electronically signed by: Jenny Tinsley M.D. on Reading Physician:02/29/2020 04:16 PM
--- NOTE | 2020-02-29 12:04 | PC.NURSE ---
Addendum entered by Liz Cervantes R.N. 02/29/20 15:39: Patient sitting up to chair for lunch and afternoon, reports feeling bloated. Urine output is adequate but dark. Bladder scan revealed <100cc. Patient back to chair, IV ABX completed, denies further needs at this time. Original Note: Late note: 0700 assumed care of patient, patient is A/O x4, denies dizziness, lightheadedness, asymptomatic of hypotension (93/57, 71 bpm) patient verbalizes she is feeling less fatigued than when admitted but still weak. IV infusing K+ at 100 cc/hr due to tingling noted at prescribed rate (per night RN). Patient tolerating. Lungs clear. Patient on room air. Patient up to restroom with SBA. Noted rash on bilateral upper thighs, dry skin and scattered lesions noted related to lymphoma. These are WNL for patient. ECHO completed. Call light in reach. Patient denies further needs at this time.
--- NOTE | 2020-02-29 12:38 | PT.IIE ---
Current Diagnoses Neutropenia, unspecified (02/28/20) Surgical History (Last Reviewed 02/28/20 @ 18:21 by Mihir Alejandra DO) History of removal of Port-a-Cath Medical History (Last Reviewed 02/28/20 @ 18:21 by Mihir Alejandra DO) Follicular non-Hodgkin's lymphoma SVT (supraventricular tachycardia) Physical Therapy Inpatient Evaluation/Re-Eval M1 PT/OT-IP Prior Functional Status Start: 02/29/20 08:43 Freq: NEEDED Status: Active Protocol: Document 02/29/20 12:10 AW (Rec: 02/29/20 12:37 AW [id number]) Medical Review Prior Functional Status Medical History Reviewed Yes Communication WNL. Pt is an effective verbal communicator. Mobility and Gait Pt is independent with household and short community distances. Her outings have been limited to doctors appointments recently. She states that in the past few weeks, she has felt weaker and less steady. She has been reaching for rubio and furniture during household ambulation. Activities of Daily Living and IADL's Independent with all ADL's. Pt 's friend, Faye, drives her to appointments Prior Functional Level (Other details) PMH includes SVT and Hodgkins lymphoma for which she is currently being treated. Social History Household Members children Living Arrangements House Number of Floors (Floors) Two Floors Number of Stairs To Enter/Railing? 3 CHANNING with narrow bilateral rails. 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 Home Environment Standard Height Toilet Home Equipment Shower Seat without Backrest, Grab Bars In Shower Employment Status Retired Additional Social History Comment Pt lives in [place] with her 51-yo son who works freight car builder . She has another son who lives in [facility] and friends who check in and assist her as needed. M2 PT-IP Current Condition Start: 02/29/20 08:43 Freq: NEEDED Status: Active Protocol: Document 02/29/20 12:10 AW (Rec: 02/29/20 12:37 AW [id number]) Physical Therapy Current Condition Current Condition Evaluation Date 02/29/20 Treatment Diagnosis neutropenic fever, generalized weakness Onset Date a few weeks M3 PT-IP Subjective Start: 02/29/20 08:43 Freq: NEEDED Status: Active Protocol: Document 02/29/20 12:10 AW (Rec: 02/29/20 12:37 AW [id number]) Subjective Physical Therapy Visit Type Type Initial Evaluation Visit Start Time 11:34 Visit Stop Time 12:03 Total Visit Minutes 29 Notes Pt's Hgb/Hct was 7.4/22.5 on last lab draw; platelets were 14. This PT cleared pt for activity with hospitalist prior to evaluation. Physical Therapy Visit Comments Patient Comments I think I'd feel better if I could move around a little more. Therapy Pain Assessment Pain When Pain Assessed During Mobility Pain Present Pain Present Denied Pain M4 PT-IP Mobility and Gait Start: 02/29/20 08:43 Freq: NEEDED Status: Active Protocol: Document 02/29/20 12:10 AW (Rec: 02/29/20 12:37 AW [id number]) PT-Bed Mobility Assessment Supine to Sit Supine to Sit Standby Assistance Sit to Supine Sit to Supine Standby Assistance Scooting Scooting to Edge of Bed Standby Assistance PT-Transfer Assessment Sit to and From Stand Sit to and from Stand Standby Assistance,Use of Upper Extremities Equipment Transfer Assistive Device Gait Belt Orthotic/Prosthetic Devices or Brace: No Transfers Transfer Destination Chair Transfer Technique pt ambulated without AD Transfer Ability Level of Assist Standby Assistance Comments Mobility Comments Pt was sitting EOB as PT arrived. BP in sitting was 85/ 58 HR 74. Pt transferred to supine and BP was 92/58 HR 74 after 2 minutes. Pt sat EOB again with BP 89/62 HR 81 after two minutes. Pt then stood SBA with BP 96/55 HR 80. Pt was entirely asymptomatic. She initiated gait and walked around the room without complaint. She then donned her face mask and ambulated in the hallway a total of 220 feet SBA with (+) LOB x 2 from which pt was able to recover without assist. She completed stair assessment and then returned to the room where she transferred to the bedside chair SBA. BP was 108/61 HR 83 after activity. Pt was left in the chair with call light in reach. Gait Assessment Gait Gait Assistance Required: Standby Assistance Distance (Feet) 220 Able to Maintain Weight Bearing Status No During Gait Assistive Devices Assistive Device Gait Belt Orthotic/Prosthetic Devices or Brace: No Gait Deviations General Gait Pattern Decreased Stride Length, Decreased Feet Clearance, Lateral Trunk Lean Factors Limiting Gait Function Factors Limiting Gait Function Decreased Activity Tolerance, Decreased Strength,Poor Balance Comments Gait Comments See mobility comments for details. Stair Climbing Assessment Evaluation Level of Assist On Stairs Standby Assistance Devices Stair Climbing Assistive Devices Left Railing,Right Railing Technique/Endurance Stair Climbing Direction Ascend and Descend Stair Climbing Technique Step Over Step Number of Steps Climbed 3 Query Text: Stair Climbing Set # Repetitions (reps) 1 Comments Stair Climbing Comments Pt safely navigates stairs with B rails SBA. PT-Balance Assessment Sitting Balance and Reactions Static Sitting Balance Ability Normal Dynamic Sitting Balance Ability Normal Standing Balance and Reactions Static Standing Balance Ability Good Dynamic Standing Balance Ability Fair Device Used no AD M5 PT-IP Objective Assessments Start: 02/29/20 08:43 Freq: NEEDED Status: Active Protocol: Document 02/29/20 12:10 AW (Rec: 02/29/20 12:37 AW [id number]) Orientation Orientation/Cognition Level of Alertness Alert Orientation Name,Age,Birthday,Month,Date, Year,Day of Week,Place, Situation Safety Awareness Understands Safety Issues Memory Description No Deficits Noted Gross Range of Motion Lower Extremity ROM Assessment Within Functional Limits Strength Lower Extremity Strength Assessment Bilaterally Impaired Hip 4-/5 Knee 4+/5 Ankle 4+/5 Coordination Assessment Gross Coordination Gross Coordination WNL Sensation Assessment Sensation Gross Sensation WNL Muscle Tone Muscle Tone WNL Yes M6 PT-IP Treatment Start: 02/29/20 08:43 Freq: NEEDED Status: Active Protocol: Document 02/29/20 12:10 AW (Rec: 02/29/20 12:37 AW [id number]) Physical Therapy Treatment Education Education Provided Safety Other Treatments Other Treatment Performed Provided education on role of PT and plan of care. M7 PT-IP Assessment and Plan Start: 02/29/20 08:43 Freq: NEEDED Status: Active Protocol: Document 02/29/20 12:10 AW (Rec: 02/29/20 12:37 AW [id number]) PT Summary Assessment and Plan Potential Rehabilitation Potential Good Status of Condition at Evaluation Evolving Summary Impairments Strength,Balance,Transfers, Gait,Activity Tolerance Assessment Summary Miles is a 74 yo woman who is undergoing treament for Hodgkins lymphoma. She is admitted with neutropenic fever and generalized weakness . She is indpendent with household and short community distances at baseline. She is independent with all ADL's. On evaluation, pt presents with BLE weakness affecting gait and decreased dynamic balance. PT will follow for at least one additional visit to address gait and strength impairments. Pt states she has been having conversations with family members about having more structured assistance at home such as private caregivers or possibly hospice. This PT mentioned that care management would be able to assist with community resources. Pt will be safe to discharge home with assist once medically cleared. Goals Bed Mobility Goal Independent Transfer Goal Independent Gait Goal Independent Gait Distance 220 Other Goals - up/down 3 steps with B rails IND - gait goal to be met with or without SPC Frequency of Treatment Frequency Of Treatment Once a Day Treatment Plan Physical Therapy Treatment Plan Bed Mobility Training,Transfer Training,Gait Training, Therapeutic Exercise,Balance Retraining,Neuromuscular Re-ed Other Recommendations and Next Treatment gait training with SPC if pt Focus willing; ther ex for BLE strength Recommendations To Nursing Amount of Assist Needed Standby Assistance Discharge Recommendations PT Discharge Recommendations Home with Assistance Transportation Needs at Discharge Private Vehicle
--- NOTE | 2020-02-29 13:03 | CM.DANOTE ---
Addendum entered by Peggy Gama R.N. 02/29/20 15:06: Dr. Alejandra mentioned home health in his progress note. Asked him to sign a face to face. After speaking to him, stated, she may not needed, will see what P.T. states. P.T. stated home with assist. Spoke to patient about home health, and gave her Medicare Choice List. Let her know what home health can provide. At this time, nursing, P.T, and O.T. were placed on face to face. Have not yet faxed an agency, for patient wants to review. Original Note: DCP: Case received, EMR reviewed and met with patient. Introduced self and role. Was able to obtain information from patient regarding her baseline activity level, as well as health and living situation information. DCP assessment completed with information currently available. Patient is a 74 year old female who admitted yesterday afternoon to the care of the hospitalist team. PCP: Dr. Jones. Oncologist: Dr. Rose Payer: confirmed: Medicare/[employer]. Patient came to the hospital via private vehicle secondary to having a fever. Patient has history of lymphoma with pancytopenia. She was also noted to have SVT. Met with patient in her room. She is pleasant, she had already worked with Mercedes, physical therapist, and was able to get some information from her as well. Patient resides here in [place], she has lived here since 1979. She lives alone in a downstairs apartment, and son, Yi, lives upstairs. Patient has a son named Cesario, who is also local, and she stated is the executor of her estate. She is independent. She also goes to oncology as well. Patient uses no DME. She has he son, and friends to assist her if needed, since she has not been driving lately, due to compromised immune system, and days of feeling weak. She stated that she has food in her freezer, but can do light cooking if needed. She was inquiring about hospice, as well as in home caregivers. Patient stated, she is not ready for a hospice informational visit as of yet, but would like to get some information on what they do. This medical case manager was able to explain briefly about hospice services. Gave her a [facility]. Patient was also inquiring about in home caregivers, such as assistance with housekeeping. Gave her a [employer] book that she can review with information on in home caregivers. P: DCP to continue to follow for any needs. She should be able to go home when she is medically stable. Peggy Gama RN/Hyster Driver
--- NOTE | 2020-02-29 13:12 | PM.PN.1 ---
Subjective Subjective Date Patient Seen: 02/29/20 Time Patient Seen: 13:12 Interval history: Leigh Arredondo is a 74-year-old female with a past medical history of SVT, multiple hematologic malignancies including follicular lymphoma in 2008, seemingly regressed but subsequently developed a Hodgkin lymphoma in 2017 which is stage IV who presented to the emergency room with worsening weakness and fatigue over the past few months. She was admitted for neutropenic fever. She was febrile to 103 overnight, improved this AM with tylenol. Cultures remain negative. Counts improved slightly today. She has night sweats frequently over the past few years. No new symptoms today including cough, chest pain, shortness of breath, abdominal pain, nausea, vomiting, diarrhea. Infectious workup thus far has been negative. Exam Vital Signs (past 8 hours): - 02/29/20 05:53 02/29/20 08:10 02/29/20 09:04 Temperature 97.7 F 97.7 F Pulse Rate 77 71 79 Respiratory Rate 16 18 20 Blood Pressure 95/54 L 93/57 L Pulse Oximetry 99 95 99 02/29/20 11:00 02/29/20 12:11 Temperature 97.9 F Pulse Rate 79 Respiratory Rate 17 Blood Pressure 107/65 Pulse Oximetry 94 96 Oxygen Delivery Method Room Air Oxygen Flow Rate 0 Narrative Exam Narrative: GENERAL APPEARANCE: Thin-appearing, elderly female, in no acute distress. BMI 18.9. SKIN: Inspection of the skin reveals multiple scattered chronic skin lesions which are raised with a black eschar, some with surrounding erythema but minimally tender. These are known to be malignant per chart review and per patient. HEENT: Normocephalic atraumatic, extraocular muscles are intact, oropharynx is clear and mucous membranes are moist, neck is supple without adenopathy NECK: Supple and symmetric. There was no thyroid enlargement, and no tenderness, or masses were felt. CHEST: Normal AP diameter and normal contour without any kyphoscoliosis. Right chest Port-A-Cath without tenderness, surrounding erythema, or induration. LUNGS: Auscultation of the lungs revealed no wheezes, rhonchi, or rales. CARDIOVASCULAR: There was a regular rate and rhythm without any murmurs, gallops, rubs. Peripheral pulses were 2+ and symmetric. ABDOMEN: Soft and nontender with normal bowel sounds. No ascites was noted. MUSCULOSKELETAL: There was no joint tenderness or effusions noted. EXTREMITIES: No cyanosis, clubbing or edema. NEUROLOGIC: Alert and oriented x 3. Likely mild cognitive impairment. No focal neurological deficits. Objective Labs Result Diagrams: 02/29/20 05:20 02/29/20 05:20 Labs: Laboratory Results - last 24 hr 02/28/20 02/28/20 02/28/20 12:16 12:40 13:19 WBC RBC Hgb Hct MCV MCH MCHC RDW Plt Count Neut % (Auto) Lymph % (Auto) Lau[place] % (Auto) Eos % (Auto) Baso % (Auto) Lymph # (Auto) [place] # (Auto) Baso # (Auto) Total Counted Seg Neutrophils % Band Neutrophils % Lymphocytes % (Manual) Monocytes % (Manual) Neutrophils # (Manual) Platelet Estimate RBC Morphology Hypochromasia Anisocytosis Sodium Potassium Chloride Carbon Dioxide BUN Creatinine Estimated GFR BUN/Creatinine Ratio Glucose Calcium Magnesium Total Bilirubin Conjugated Bilirubin Unconjugated Bilirubin AST ALT Alkaline Phosphatase NT-Pro-B Natriuret Pep Total Protein Albumin Globulin Albumin/Globulin Ratio Vitamin B12 TSH Urine Color Yellow Urine Appearance Clear Urine pH 6.0 Ur Specific [place] <=1.005 Urine Protein Negative Urine Glucose (UA) Negative Urine Ketones Negative Urine Occult Blood Trace-lysed Urine Nitrate Negative Urine Bilirubin Negative Urine Urobilinogen 0.2 Ur Leukocyte Esterase Negative Urine RBC None seen Urine WBC 0-1/hpf Ur Squamous Epith Cells 0-1 /hpf Urine Bacteria Few (2-10) H Ur Culture Indicated? Cult not indicated COVID-19 PCR Negative Blood Type A Positive 02/29/20 02/29/20 02/29/20 05:20 05:20 05:20 WBC 1.5 L* RBC 2.52 L Hgb 7.4 L Hct 22.5 L MCV 89.3 MCH 29.5 MCHC 33.1 RDW 17.1 H Plt Count 14 L* Neut % (Auto) Not Reportable Lymph % (Auto) Not Reportable [place] % (Auto) Not Reportable Eos % (Auto) Not Reportable Baso % (Auto) Not Reportable Lymph # (Auto) Not Reportable [place] # (Auto) Not Reportable Baso # (Auto) Not Reportable Total Counted 100 Seg Neutrophils % 56.0 Band Neutrophils % 24.0 H Lymphocytes % (Manual) 14.0 L Monocytes % (Manual) 6.0 Neutrophils # (Manual) 1200 L Platelet Estimate Decreased on smear RBC Morphology See below Hypochromasia 2+ H Anisocytosis 2+ H Sodium 135 L Potassium 3.3 L Chloride 106 Carbon Dioxide 29 BUN 12 Creatinine 0.66 Estimated GFR > 60.0 BUN/Creatinine Ratio 18.2 Glucose 106 Calcium 9.1 Magnesium 1.9 Total Bilirubin 0.9 Conjugated Bilirubin 0.0 Unconjugated Bilirubin 0.6 AST 47 H ALT 21 Alkaline Phosphatase 73 NT-Pro-B Natriuret Pep Total Protein 4.7 L Albumin 2.4 L Globulin 2.3 Albumin/Globulin Ratio 1.0 Vitamin B12 TSH 1.25 Urine Color Urine Appearance Urine pH Ur Specific [place] Urine Protein Urine Glucose (UA) Urine Ketones Urine Occult Blood Urine Nitrate Urine Bilirubin Urine Urobilinogen Ur Leukocyte Esterase Urine RBC Urine WBC Ur Squamous Epith Cells Urine Bacteria Ur Culture Indicated? COVID-19 PCR Blood Type 02/29/20 02/29/20 05:20 05:20 WBC RBC Hgb Hct MCV MCH MCHC RDW Plt Count Neut % (Auto) Lymph % (Auto) [place] % (Auto) Eos % (Auto) Baso % (Auto) Lymph # (Auto) [place] # (Auto) Baso # (Auto) Total Counted Seg Neutrophils % Band Neutrophils % Lymphocytes % (Manual) Monocytes % (Manual) Neutrophils # (Manual) Platelet Estimate RBC Morphology Hypochromasia Anisocytosis Sodium Potassium Chloride Carbon Dioxide BUN Creatinine Estimated GFR BUN/Creatinine Ratio Glucose Calcium Magnesium Total Bilirubin Conjugated Bilirubin Unconjugated Bilirubin AST ALT Alkaline Phosphatase NT-Pro-B Natriuret Pep 1310 H Total Protein Albumin Globulin Albumin/Globulin Ratio Vitamin B12 899 TSH Urine Color Urine Appearance Urine pH Ur Specific [place] Urine Protein Urine Glucose (UA) Urine Ketones Urine Occult Blood Urine Nitrate Urine Bilirubin Urine Urobilinogen Ur Leukocyte Esterase Urine RBC Urine WBC Ur Squamous Epith Cells Urine Bacteria Ur Culture Indicated? COVID-19 PCR Blood Type PFSH Medical History Follicular non-Hodgkin's lymphoma SVT (supraventricular tachycardia) Surgical History History of removal of Port-a-Cath Social History household members: children Smoking Status: Former smoker alcohol intake: current substance use type: does not use Assessment & Plan Assessment & Plan narrative: Leigh Kefgen is a 74-year-old female with a past medical history SVT, multiple hematologic malignancies including follicular lymphoma in 2008, seemingly regressed but subsequently developed a Hodgkin lymphoma in 2017 which is stage IV who presented to the emergency room with worsening weakness and fatigue over the past few months, as well as recurrent fever who is admitted now with neutropenic fever. 1. Neutropenic fever, acute, present on admission -Unclear if this is truly infectious in nature as patient has been having fevers over the prior 2 years likely secondary to her Hodgkin's lymphoma. She does have a chronic cough but no overt infectious etiology. And neutropenia/pancytopenia is more likely a result of her brentuximab which she received her 1st dose of on February 09. -continue with cefepime 2 g every 24 hours pending culture results. Patient is hemodynamically stable and there is no need for continued vancomycin, she received a dose in the emergency room. -Dr. Rose in clinic tomorrow, will reach out then. -chest x-ray does not show any focal infiltrates, urinalysis is unremarkable, and history and physical does not reveal any revealing source. Her Port-A-Cath does not appear to be infected on exam. -neutrophil count is 1120 on admission, consistent with mild neutropenia. Suspect pancytopenia is related to Brentuximab infusion. -procalcitonin is elevated to 32.64, added on to morning labs pending repeat today. 2. Pancytopenia, acute, present on admission -patient with initial CBC showing leukopenia, white count of 1.4 with an absolute neutrophil count of 1120. Hemoglobin of 8.5, and platelet count of 11. Counts slightly improved today except for Hg which decreased to 7.4 All of these have dipped quite dramatically since her infusion of brentuximab on 02/09. There may be an infectious component given her continued fevers and have started the patient on antibiotics as noted above pending evaluation. -will continue to follow blood counts, transfuse platelets for a count less than 10 or less than 50 if active bleeding. Transfuse Hg for symptomatic disease or <7. -B12 within normal limits. 3. History of SVT, chronic, not present on admission -patient has recurrent SVT, and has sought care in the emergency room multiple times which has been relieved with adenosine. She currently takes diltiazem which we will continue. -will monitor on telemetry 4. suspected chronic protein calorie malnutrition - albumin 2.9 on admission, active malignancy, BMI 18.9 - java project manager consultation ordered. 5. Hodgkin's lymphoma, active, chronic, present on admission - patient currently being managed by oncology service with Dr. Rose, also followed at [facility]. - most recent immunotherapy given 02/09, Brentuximab. Previously on Keytruda. Not recommended for bone marrow transplant per notes and patient. - oncology consult as noted above. 6. Chronic fatigue -suspect related to her progressive Hodgkin's lymphoma, possibly related to worsening anemia, although she does have a mild congestive appearance on her chest x-ray. ProBNP is 1310 and have ordered a TTE for possible cardiac etiology. She has no evidence of over volume overload on exam to suggest heart failure. Code: Full, as discussed with the patient, however she is seemingly on clear about her prior advanced directive. She will have her son bring this in tomorrow. Her son is her surrogate decision maker. DVT: Chemical prophylaxis On hold given thrombocytopenia Dispo: Patient is admitted under inpatient status. Pending PT/OT evaluations, anticipate discharge home with home health as patient does not wish to go to retirement. FEN/GI: Heart healthy diet COVID-19 COVID-19 status: Negative Quality VTE Deep Vein Thrombosis/Pulmonary Embolism Present on Admission: No
--- NOTE | 2020-02-29 13:36 | OT.IP.EVAL ---
Current Diagnoses Neutropenia, unspecified (02/28/20) Past Medical History (Last Reviewed 02/28/20 @ 18:21 by Mihir Alejandra DO) Follicular non-Hodgkin's lymphoma SVT (supraventricular tachycardia) Surgical History (Last Reviewed 02/28/20 @ 18:21 by Mihir Alejandra DO) History of removal of Port-a-Cath Occupational Therapy Inpatient Evaluation/Re-Eval M1 PT/OT-IP Prior Functional Status Start: 02/29/20 15:40 Freq: NEEDED Status: Active Protocol: Document 02/29/20 13:36 [facility] (Rec: 02/29/20 16:02 [facility] [id number]) Medical Review Prior Functional Status Medical History Reviewed Yes Communication WNL. Pt is an effective verbal communicator. Mobility and Gait Pt is independent with household and short community distances. Her outings have been limited to doctors appointments recently. She states that in the past few weeks, she has felt weaker and less steady. She has been reaching for rubio and furniture during household ambulation. Activities of Daily Living and IADL's Independent with all ADL's. Pt 's friend, Faye, drives her to appointments Prior Functional Level (Other details) PMH includes SVT and Hodgkins lymphoma for which she is currently being treated. Social History Household Members children Living Arrangements House Number of Floors (Floors) Two Floors Number of Stairs To Enter/Railing? 3 [place] with narrow bilateral rails. Pt stays on the entry level chemist. Home Environment Standard Height Toilet Home Equipment Shower Seat without Backrest, Grab Bars In Shower Employment Status Retired Additional Social History Comment Pt lives in [place] with her 51-yo son who works entry level chemist . She has another son who lives in [facility] and friends who check in and assist her as needed. M2 OT-IP Current Condition Start: 02/29/20 15:40 Freq: Status: Active Protocol: Document 02/29/20 13:36 [facility] (Rec: 02/29/20 16:02 [facility] [id number]) Occupational Therapy Current Condition Current Condition Evaluation Date 02/29/20 Treatment Diagnosis fever, pancytopenia Diagnosis Onset Date 02/28/20 M3 OT- IP Subjective and Pain Start: 02/29/20 15:40 Freq: Status: Active Protocol: Document 02/29/20 13:36 [facility] (Rec: 02/29/20 16:02 [facility] [id number]) OT- Subjective Occupational Therapy Visit Type Type Initial Evaluation Visit Start Time 13:36 Visit Stop Time 14:24 Total Visit Minutes 48 Occupational Therapy Visit Comments Patient Comments Pt agreed to get up for Ot eval. Patient/Caregiver Goals To go home. OT Pain Assessment Pain When Pain Assessed At Rest Pain Present Pain Present Denied Pain M4 OT- IP ADL's Start: 02/29/20 15:40 Freq: Status: Active Protocol: Document 02/29/20 13:36 [facility] (Rec: 02/29/20 16:02 [facility] [id number]) OT LGD-Snlo-Vhepdjs Comments OT Self-Feeding Comments Not at meal time, able to drink from the water bottle of her own. OT ADL-Grooming General Evaluation Grooming Ability Standby Assistance Areas Needing Assistance Retrieving/Set-up of Grooming Items Comments OT Grooming Comments Set-up assist and able to do grooming needs while standing at the sink. OT ADL-Oral Care General Eval Oral Care Ability Independent OT ADL-Dressing General Eval Lower Body Dressing Ability Standby Assistance Comments OT Dressing Comments SBA and increased time to alba /doff socks when crossing her legs over. Attempted sock aid but pt felt the sock aid was too much trouble to use. OT ADL-Toileting General Evaluation Toileting Ability Standby Assistance Comments OT Toileting Comments Use of grab bar to help lower and raise from the toilet. Suggested a BSC or RTS would make in easier to use at home . OT ADL-Bathing Comments OT Bathing Comments Pt states to attempt tomorrow. Pt states usually stands to shower and has not used the bath stool that she has. In addition pt has a hand held shower spray located in the attic that can have her son bring down to use if needed. M5 OT- IP IADL's Start: 02/29/20 15:40 Freq: Status: Active Protocol: Document 02/29/20 13:36 [facility] (Rec: 02/29/20 16:02 [facility] [id number]) OT-Instrumental Activities of Daily Living Deficits IADL Deficits Identified Deficits Home Safety Awareness Awareness of Need for Assistance at Home Good Awareness Ability to Problem Solve Emergency Able to Problem Solve Situations Medication Management Medication Management No Deficits Identified Money Management Money Management No Deficits Identified Meal Preparation Meal Preparation Comments Pt states usually steams her foods. Supervisor Electronics Testing Supervisor Electronics Testing Caregiver Provides Assist M6 OT- IP Functional Cognition Start: 02/29/20 15:40 Freq: Status: Active Protocol: Document 02/29/20 13:36 [facility] (Rec: 02/29/20 16:02 [facility] [id number]) Cognitive Factors Limiting Selfcare Function Cognitive Ability Level of Alertness Alert Patient Orientation Name,Age,Birthday,Month,Date, Year,Day of Week,Place, Situation Attention Span Ability Capable of Focused Attention, Capable of Sustained Attention Ability to Follow Commands Able to Follow Multi-Step Commands Memory Description No Deficits Noted Safety Awareness No Deficits Noted Problem Solving Ability No deficits Noted Cognitive Comments Cognitive Assessment Comments Pt on Ot eval appears to has no cognitive deficits and is at baseline for needs. OT- Vision and Hearing OT- Hearing Assessment OT- Hearing Assessment WFL OT- Vision Assessment Visual Acuity Glasses For Reading Visual Attentiveness WFL M7 OT- IP Mobility and Balance Start: 02/29/20 15:40 Freq: Status: Active Protocol: Document 02/29/20 13:36 [facility] (Rec: 02/29/20 16:02 [facility] [id number]) OT-Transfer Assessment Sit to and From Stand Sit to and from Stand Standby Assistance Transfers Transfer Ability Standby Assistance Technique Transfer Destination Bed,Chair,Toilet Transfer Technique Stand Step Pivot Devices Transfer Assistive Devices None Comments Mobility Comments SBA without use of AD, pt a little unsteady when trying to hold items in her hands while walking in the room. Tried use of 4ww in the room so pt able to see that it can used to sit on if needed or assist to help transport items, especially if pt's condition worsens. OT- Gait Assessment Comments Gait Ability Comments SBA on level surfaces in the room. OT- Balance Assessment Sitting Balance and Reactions Static Sitting Balance Ability Normal Dynamic Sitting Balance Ability Good Standing Balance and Reactions Static Standing Balance Ability Good M8 OT- IP Objective Assessments Start: 02/29/20 15:40 Freq: Status: Active Protocol: Document 02/29/20 13:36 [facility] (Rec: 02/29/20 16:02 [facility] [id number]) OT Gross Range of Motion Upper Extremity Range of Motion Assessment Left Impaired OT Strength Comments Strength Comments BUE 4-/5 to 4/5 from proxiaml to distal. OT-Muscle Tone Assessment Muscle Tone WNL Yes M9 OT- IP Assessment and Plan Start: 02/29/20 15:40 Freq: Status: Active Protocol: Document 02/29/20 13:36 [facility] (Rec: 02/29/20 16:02 [facility] [id number]) OT Summary Assessment and Plan Potential Rehabilitation Potential Good Analytic Complexity at Evaluation Low Summary OT Impairments Functional Mobility,Grooming, Dressing,Toileting,Bathing, Toilet Transfers,Shower Transfers,Activity Tolerance Progress Towards Goals Progressing Toward Goals Assessment Summary Pt low complexity and here due to fevers and pancytopenia and history of Lymphoma stage 4 and followed by oncology. Pt would benefit from one more OT session to go over showering needs and help identify whether pt able to stand versus having to use the shower stool for showering. Pt already given energy conservation information and agrees that would benefit from a BSC/rts, HHSP, and stool in the shower. Pt to go home when medically stable and assist from son as needed. Goals Grooming Goal Independent Dressing Goal Independent Toileting Goal Independent Bathing Goal Independent Toilet Transfer Goal Independent Shower Transfer Goal Independent Patient/Caregiver Education Goal Caregiver Independent Assisting Patient Days to Meet Goals 2 Frequency of Treatment Frequency Of Treatment Once a Day Treatment Plan OT Treatment Plan ADL Training,Functional Mobility,Patient/Family Education,Discharge Planning Other Treatment Recommendations and Next shower Treatment Focus Discharge Recommendations OT Discharge Recommendations Home with Assistance Home Equipment Needs BSC/RTS Transportation Needs at Discharge Private Vehicle
--- NOTE | 2020-02-29 18:45 | PC.NURSE ---
pt up to side of bed visiting with family-refusing meds at this time-will monitor
--- NOTE | 2020-02-29 18:54 | PC.NURSE ---
pt wants iv unhooked so Heplocked for walk and/or until next anbx
[2020-03-01] VITALS (13 sets, daily range): BP systolic 100–141; BP diastolic 59–79; PULSE 70–93; RESP 16–18; TEMP 36.1–37.4; O2SAT 95–99
[2020-03-01] MEDS: ACETAMINOPHEN 325 MG TABLET 650 MG PO ×5 (01:07→20:51)
[2020-03-01] MEDS: CEFEPIME 2 GM in SODIUM CHLORIDE 0.9% 100 ML 200 ML IV ×2 (03:15→20:51)
[2020-03-01 06:31] LABS: Hematocrit 22.7 % (36-46); Hemoglobin 7.4 g/dL (12.0-16.0); Mean Corpuscular HGB Conc 32.4 % (30-36); Mean Corpuscular Hemoglobin 28.8 PG (26-34); Mean Corpuscular Volume 89.1 fL (80-100); Red Blood Cell Count 2.55 X10^6/uL (4.0-5.2)
[2020-03-01 06:41] LABS: Alanine Aminotransferase 23 IU/L (<35); Albumin 2.4 g/dL (3.5-5.0); Albumin Globulin Ratio 1.1 (1.0-2.8); Alkaline Phosphatase 95 U/L (38-126); Aspartate Aminotransferase 51 IU/L (14-36); BUN Creatinine Ratio 28.8 (6-22); Bilirubin Total 0.8 mg/dL (0.2-1.3); Bilirubin Unconjugated 0.7 mg/dL (0.0-1.1); Blood Urea Nitrogen 15 mg/dL (7-17); Calcium 9.7 mg/dL (8.4-10.2); Carbon Dioxide 26 mmol/L (22-32); Chloride 108 mmol/L (98-107); Estimated Glomerular Filt Rate > 60.0 mL/min (>60); Globulin 2.2 g/dL (1.7-4.1); Glucose 96 mg/dL (80-110); HEMOLYSIS < 15 (0-50); Magnesium 1.9 mg/dL (1.6-2.3); Potassium 3.5 mmol/L (3.4-5.1); Sodium 136 mmol/L (137-145); Total Protein 4.6 g/dL (6.3-8.2)
[2020-03-01 06:47] LABS: White Blood Cell Count 1.5 X10^3/uL (4.5-11.0)
[2020-03-01 06:49] LABS: Add Manual Diff / Slide Review YES; Platelet Count 8 X10^3/uL (150-400)
--- NOTE | 2020-03-01 06:53 | PC.NURSE ---
Lab reports a critical value for WBC's 1.5 and platelets 8. Reported to S[facility]ague w/no new orders for this shift but anticipation of pt needing platelets.
[2020-03-01 07:33] LABS: Neutrophils Absolute Manual 1230 /uL (3000-5900); Total Cells Counted 50
[2020-03-01 07:35] LABS: Anisocytosis 2+; Platelet Estimate Decreased on smear
[2020-03-01] MEDS: SODIUM CHLORIDE 0.9% FLUSH 10 ML IV ×2 (08:51→21:58)
--- NOTE | 2020-03-01 09:12 | OT.IPNOTE ---
Spoke to pt regarding showering this am and pt states to tired at this time to try. Pt able to state her son was not able to bring down the HHPS from the attic yet. Pt feels that she will be okay at home and has good understanding for all OT suggestions especially for safety and energy conservation needs. NO charge, discharge pt from OT services at this time.
[2020-03-01] MEDS: FILGRASTIM-AAFI 300 MCG/0.5 ML SYRINGE SUBCUT (10:04)
--- NOTE | 2020-03-01 11:02 | CM.DPC ---
DCP: continued: case received, EMR reviewed and followed up on ? of home health services as per Tamiko's note of yesterday. Met with pt and introduced self and role. Pt had more questions re what home health services do and how this is covered. After discussion, she says she very much thinks that HH RN and PT/OT followup would be very helpful. She says she does have some family support and a small group of people who will help me as my needs change but would like the formal HH for any needed caregiver training, medication management/reconciliation and assist in making her home safe and functional for her as her needs change. HH agency list: discussed. No choice: agrees to defer to vendor for this week: [facility]. Referral given verbally to Tani/[facility]. ADRIAN Artis will fax referral packet today. Spoke with Dr. Alejandra re POC as no note is in yet for today. He states that he conferred with pt's oncologist and I now have a change in POC as per his direction. Pt is expected to be here for a couple more days. Have provided pt with the [facility] brochure. DCP team will continue to follow: at this time plan is for home with prn family support and [facility] services when pt is stable for same.
--- NOTE | 2020-03-01 11:24 | PM.PN.1 ---
Subjective Subjective Date Patient Seen: 03/01/20 Time Patient Seen: 11:24 Interval history: Leigh Arredondo is a 74-year-old female with a past medical history of SVT, multiple hematologic malignancies including follicular lymphoma in 2008, seemingly regressed but subsequently developed a Hodgkin lymphoma in 2017 which is stage IV who presented to the emergency room with worsening weakness and fatigue over the past few months. She was admitted for neutropenic fever. She was febrile to 103 overnight, improved this AM again. Cultures remain negative. Her platelet count dropped slightly to 8, given value less than 10 she was transfused a pack of platelets. Discussed with her oncologist, Dr. Rose, who recommended continuing her antibiotics while admitted and starting Neupogen. Dose is 300 mg daily until her ANC is above 5000. She complains of a rash on her bilateral thighs that is nontender and nonpruritic. Echocardiogram performed yesterday did not reveal any evidence of heart failure. The patient continues to deny any chest pain, shortness of breath, lower extremity edema, orthopnea. She continues to have night sweats, but these are unchanged. Exam Vital Signs (past 8 hours): - 03/01/20 04:00 03/01/20 07:57 03/01/20 08:00 Temperature 97.8 F 98.5 F Pulse Rate 78 70 77 Respiratory Rate 18 16 16 Blood Pressure 106/66 100/61 Pulse Oximetry 98 97 97 Oxygen Delivery Method Room Air Oxygen Flow Rate 0 Narrative Exam Narrative: GENERAL APPEARANCE: Thin-appearing, elderly female, in no acute distress. BMI 18.9. SKIN: Inspection of the skin reveals multiple scattered chronic skin lesions which are raised with a black eschar, some with surrounding erythema but minimally tender. These are known to be malignant per chart review and per patient. HEENT: Normocephalic atraumatic, extraocular muscles are intact, oropharynx is clear and mucous membranes are moist, neck is supple without adenopathy NECK: Supple and symmetric. There was no thyroid enlargement, and no tenderness, or masses were felt. CHEST: Normal AP diameter and normal contour without any kyphoscoliosis. Right chest Port-A-Cath without tenderness, surrounding erythema, or induration. LUNGS: Auscultation of the lungs revealed no wheezes, rhonchi, or rales. CARDIOVASCULAR: There was a regular rate and rhythm without any murmurs, gallops, rubs. Peripheral pulses were 2+ and symmetric. ABDOMEN: Soft and nontender with normal bowel sounds. No ascites was noted. MUSCULOSKELETAL: There was no joint tenderness or effusions noted. EXTREMITIES: No cyanosis, clubbing or edema. NEUROLOGIC: Alert and oriented x 3. Likely mild cognitive impairment. No focal neurological deficits. Objective Labs Result Diagrams: 03/01/20 06:10 03/01/20 06:10 Labs: Laboratory Results - last 24 hr 02/29/20 03/01/20 03/01/20 05:20 06:10 06:10 WBC 1.5 L* RBC 2.55 L Hgb 7.4 L Hct 22.7 L MCV 89.1 MCH 28.8 MCHC 32.4 RDW 18.0 H Plt Count 8 L* Neut % (Auto) Not Reportable Lymph % (Auto) Not Reportable Ware % (Auto) Not Reportable Eos % (Auto) Not Reportable Baso % (Auto) Not Reportable Lymph # (Auto) Not Reportable Ware # (Auto) Not Reportable Baso # (Auto) Not Reportable Total Counted 50 Seg Neutrophils % 60.0 Band Neutrophils % 22.0 H Lymphocytes % (Manual) 10.0 L Atypical Lymphs % 2.0 H Monocytes % (Manual) 6.0 Neutrophils # (Manual) 1230 L Platelet Estimate Decreased on smear RBC Morphology See below Anisocytosis 2+ H Sodium 136 L Potassium 3.5 Chloride 108 H Carbon Dioxide 26 BUN 15 Creatinine 0.52 Estimated GFR > 60.0 BUN/Creatinine Ratio 28.8 H Glucose 96 Calcium 9.7 Magnesium 1.9 Total Bilirubin 0.8 Conjugated Bilirubin 0.0 Unconjugated Bilirubin 0.7 AST 51 H ALT 23 Alkaline Phosphatase 95 Total Protein 4.6 L Albumin 2.4 L Globulin 2.2 Albumin/Globulin Ratio 1.1 Procalcitonin 28.50 H [facility] Medical History Follicular non-Hodgkin's lymphoma SVT (supraventricular tachycardia) Surgical History History of removal of Port-a-Cath Social History household members: children Smoking Status: Former smoker alcohol intake: current substance use type: does not use Assessment & Plan Assessment & Plan narrative: Leigh Arredondo is a 74-year-old female with a past medical history SVT, multiple hematologic malignancies including follicular lymphoma in 2009, seemingly regressed but subsequently developed a Hodgkin lymphoma in 2017 which is stage IV who presented to the emergency room with worsening weakness and fatigue over the past few months, as well as recurrent fever who is admitted now with neutropenic fever. Oncology recommended neupogen today and continuing daily until ANC is >5000. 1. Neutropenic fever, acute, present on admission -Unlikely infectious in nature as patient has been having fevers over the prior 2 years likely secondary to her Hodgkin's lymphoma. She does have a chronic cough but no overt infectious signs or symptoms. And neutropenia/pancytopenia is more likely a result of her brentuximab which she received her 1st dose of on February 09. -continue with cefepime 2 g every 24 hours pending culture results. Patient is hemodynamically stable and there is no need for continued vancomycin, she received a dose in the emergency room. -Dr. Rose recommended continuing antibiotics for now, start neupogen 300 mg daily until ANC > 5000. -chest x-ray does not show any focal infiltrates, urinalysis is unremarkable, and history and physical does not reveal any revealing source. Her Port-A-Cath does not appear to be infected on exam. -neutrophil count is 1120 on admission, consistent with mild neutropenia. Suspect pancytopenia is related to Brentuximab infusion. -procalcitonin is elevated to 32.64, slight decrease to 28 yesterday, unclear significance. 2. Pancytopenia, acute, present on admission -patient with initial CBC showing leukopenia, white count of 1.4 with an absolute neutrophil count of 1120. Hemoglobin of 8.5, and platelet count of 11. Counts have been roughly stable, but Plt of 8 this AM and will give 1 pack of platelets. Less likely these are related to her infection. -will continue to follow blood counts, transfuse platelets for a count less than 10 or less than 50 if active bleeding. Transfuse Hg for symptomatic disease or <7. -B12 within normal limits. 3. History of SVT, chronic, not present on admission -patient has recurrent SVT, and has sought care in the emergency room multiple times which has been relieved with adenosine. She currently takes diltiazem which we will continue. -no events thus far and have discontinued telemetry. 4. suspected chronic protein calorie malnutrition - albumin 2.9 on admission, active malignancy, BMI 18.9 - alumni relations coordinator consultation ordered. 5. Hodgkin's lymphoma, active, chronic, present on admission - patient currently being managed by oncology service with Dr. Rose, also followed at [facility] Dr. Haider. - most recent immunotherapy given 02/09, Brentuximab. Previously on Keytruda. Not recommended for bone marrow transplant per notes and patient. - oncology recommendations as ntoed above. 6. Chronic fatigue -suspect related to her progressive Hodgkin's lymphoma, possibly related to worsening anemia, although she does have a mild congestive appearance on her chest x-ray. ProBNP is 1310 but TTE was performed and did not show any evidence of valvular disease or heart failure. Code: Full, as discussed with the patient, however she is seemingly unclear about her prior advanced directive. She will have her son bring this in . Her son is her surrogate decision maker. DVT: Chemical prophylaxis On hold given thrombocytopenia Dispo: Patient is admitted under inpatient status. Anticipate discharge home with home health as patient does not wish to go to nursing home. FEN/GI: Heart healthy diet COVID-19 COVID-19 status: Negative Quality VTE Deep Vein Thrombosis/Pulmonary Embolism Present on Admission: No
--- NOTE | 2020-03-01 11:29 | PT-IP ANOTE ---
pt with platelet of 8 and is planned for transfusion. talked with nurse and stated that transfusion is not conducted yet. informed nurse that PT is usually on hold with platelet below 20. nurse stated that pt is doing ok with mobility and just had a shower but is tired but will like to walk around and will be ok for PT. Checked on pt and pt stated that she is tired and just wants to rest. will hold PT at this time.
--- NOTE | 2020-03-01 11:48 | CM.DPNOTE ---
Faxed clinicals for referral to [facility] on 03/01/20 per Jackelyn. Steff Lynch CM Asst.
--- NOTE | 2020-03-01 12:43 | DIET.PN ---
Dietary Progress Note Assessment: 74y F admitted for dehydration and neutropenic fever secondary to stage 4 Hodgkins lymphoma referred to nutrition for PCM screening. Pt reports fatigue, drenching night sweats, neutropenic fever, reduced appetite, intermittent nausea, constipation and taste changes which are affecting her ability to eat. Pt has in the past been able to maintain 115# but admitted at 110#. Pt has group of friends who are making and freezing meals however pt reports new taste changes so that foods which were once acceptable are no longer. [place] juice and yogurt taste too sour, casseroles are too spicy when 2 mo ago they were fine. Pt ordering half portions while in hospital with 50-75% of that being consumed. Pt ordered half of veggie burger and small ice cream for lunch. Pt appears thin c severe fat wasting globally and muscle depletion evident in temples, clavicle, deltoid of exposed upper body. Pt has several quarter size malignant skin lesions c black eschar on neck and face. Pt at high risk for further nutritional decline as pt high risk for secondary infections like oral and esophageal thrush because of neutropenia. HT: 162.5cm WT: 49.8kg (-4.8% in 3w, severe) UBW: maintaining 52kg for past 2y during lymphoma tx BMI: 18.9 (severe for age) Labs: WBC 1.5 L, hgb 7.4 L, platelet 8 L, total pro 4.6, alb 2.4 MNA: 8 @ risk for malnutrition Juan M: 19 Nutrition Diagnosis: Chronic Severe PCM r/t ongoing oncologic hypermetabolism and tx side effects aeb pt has new taste changes and further reduced appetite secondary to Hodgkins lymphoma and associated tx, -4.8% unintentional weight loss in 3w (severe), BMI 18.9 (severe for age), nausea and constipation for >2mo, food recall meeting <75% EER for 2mo, NFPE showing global fat losses and moderate muscle losses in temples, clavicle, deltoid. Interventions: 1. To support pts reduced appetite yet need for nutritional repletion: providing 1/2 portions focusing on high pro options and sending high PRO milkshakes to consume between meals. 2. Provided pt and support team handout and instruction on diet reccs for low appetite and taste changes to support EERs once d/c'd. Diet Order: EER: 65g PRO (1.3g/kg per PCM), 1,750kcal (35kcal/kg per PCM) Monitoring/Evaluations: RD following POs, ONS tolerance, daily weights through hospitalization, will adjust to optimize nutrition.
--- NOTE | 2020-03-01 13:32 | PT-IP ANOTE ---
checked on pt and pt is still waiting for platelet transfusion. will continue to hold PT at this time. pt stated that she is tired and just resting informed pt that she can ask for assistance when needed and agreed.
--- NOTE | 2020-03-01 23:56 | PC.NURSE ---
SHIFT Report received, care assumed 1530. Pt. A&Ox3. VSS. Denies pain. 1 person assist in room. 1 unit platelets transfused without incident, tolerated well. Intermittently tearful. Spent a long time at bedside in conversation. Also placed harbor engineer referral.
[2020-03-02] VITALS (18 sets, daily range): BP systolic 93–124; BP diastolic 53–76; PULSE 80–106; RESP 14–18; TEMP 36.4–39.7; O2SAT 95–98
[2020-03-02] MEDS: ACETAMINOPHEN 325 MG TABLET 650 MG PO ×6 (00:55→21:15)
[2020-03-02 06:15] LABS: BUN Creatinine Ratio 22.2 (6-22); Blood Urea Nitrogen 14 mg/dL (7-17); Calcium 10.7 mg/dL (8.4-10.2); Carbon Dioxide 29 mmol/L (22-32); Chloride 108 mmol/L (98-107); Estimated Glomerular Filt Rate > 60.0 mL/min (>60); Glucose 82 mg/dL (80-110); HEMOLYSIS < 15 (0-50); Hematocrit 22.7 % (36-46); Hemoglobin 7.5 g/dL (12.0-16.0); Mean Corpuscular Hemoglobin 29.1 PG (26-34); Mean Corpuscular Volume 88.3 fL (80-100); Potassium 3.6 mmol/L (3.4-5.1); Red Blood Cell Count 2.57 X10^6/uL (4.0-5.2); Red Cell Distribution Width 17.9 % (11.6-14.8); Sodium 138 mmol/L (137-145); White Blood Cell Count 4.9 X10^3/uL (4.5-11.0)
[2020-03-02 06:21] LABS: Add Manual Diff / Slide Review YES; Platelet Count 11 X10^3/uL (150-400)
[2020-03-02 06:58] LABS: Anisocytosis 2+; Neutrophils Absolute Manual 3822 /uL (3000-5900); Total Cells Counted 100
[2020-03-02 06:59] LABS: Platelet Estimate Decreased on smear
[2020-03-02] MEDS: CEFEPIME 2 GM in SODIUM CHLORIDE 0.9% 100 ML 200 ML IV ×2 (08:35→20:21)
[2020-03-02] MEDS: FILGRASTIM-AAFI 300 MCG/0.5 ML SYRINGE SUBCUT (08:54)
[2020-03-02] MEDS: SODIUM CHLORIDE 0.9% FLUSH 10 ML IV ×2 (08:55→20:23)
--- NOTE | 2020-03-02 11:42 | PT-IP ANOTE ---
During rounds, hospitalist Dr Alejandra, recommended safe at this time to mobilize patient. Upon arrival to patient's room, patient demonstrated uncontrolled body shaking with comments of shivering cold, that nurse is aware (LONG LINE TEAMSTER confirmed by nurse/hospitalist awareness), would probably last for about an hour and not feeling safe to work with therapy this morning but willing to see how feels in the afternoon if possible. LONG LINE TEAMSTER discussed patient's response and declining therapy for am to nurse, Jenae and hospitalist Dr Alejandra. Will attempt to see patient in pm.
--- NOTE | 2020-03-02 14:16 | PT-IP ANOTE ---
Pt was L sidelying in bed upon arrival with cold back at her lateral ribcage, refused pm tx today (3rd total) secondary to recent fever this afternoon and not feeling well enough to participate. MACHINE OPERATOR FARMWORKER discussed with patient, then nurse after left room, if willing to attend therapy at this time. After discussion with nurse, nurse recommended continue patient on PT caseload and not wanting patient her to be DC from therapy at this time with further comments she felt pretty good last night and this morning getting around the room and would benefit from further therapy. Therapy will continue to assess progress tomorrow, with awareness of being seen early in am than late per nursing feedback.
--- NOTE | 2020-03-02 15:35 | PM.PN.1 ---
Subjective Subjective Date Patient Seen: 03/02/20 Time Patient Seen: 15:36 Interval history: Leigh Arredondo is a 74-year-old female with a past medical history of SVT, multiple hematologic malignancies including follicular lymphoma in 2008, seemingly regressed but subsequently developed a Hodgkin lymphoma in 2017 which is stage IV who presented to the emergency room with worsening weakness and fatigue over the past few months. She was admitted for neutropenic fever. She was febrile to 103 again, no infectious cause has been found. Cultures remain negative. Her ANC david nicely, but not >5000, will repeat value in the AM after 2nd neupogen dose today. Anticipate discharge home tomorrow. She will work with PT today, initially held given thrombocytopenia. Exam Vital Signs (past 8 hours): - 03/02/20 07:41 03/02/20 08:00 03/02/20 11:46 Temperature 98.6 F 99.3 F Pulse Rate 80 86 106 H Respiratory Rate 14 15 16 Blood Pressure 106/63 124/76 Pulse Oximetry 96 97 98 03/02/20 12:00 03/02/20 13:09 03/02/20 13:55 Temperature 103.5 F H 103 F H 102.4 F H Pulse Rate Respiratory Rate Blood Pressure Pulse Oximetry 03/02/20 14:55 Temperature 99.4 F Pulse Rate Respiratory Rate Blood Pressure Pulse Oximetry Oxygen Delivery Method Room Air Oxygen Flow Rate 0 Narrative Exam Narrative: GENERAL APPEARANCE: Thin-appearing, elderly female, in no acute distress. BMI 18.9. SKIN: Inspection of the skin reveals multiple scattered chronic skin lesions which are raised with a black eschar, some with surrounding erythema but minimally tender. These are known to be malignant per chart review and per patient. Mild erythematous papular rash over anterior thighs, improved today. HEENT: Normocephalic atraumatic, extraocular muscles are intact, oropharynx is clear and mucous membranes are moist, neck is supple without adenopathy NECK: Supple and symmetric. There was no thyroid enlargement, and no tenderness, or masses were felt. CHEST: Normal AP diameter and normal contour without any kyphoscoliosis. Right chest Port-A-Cath without tenderness, surrounding erythema, or induration. LUNGS: Auscultation of the lungs revealed no wheezes, rhonchi, or rales. CARDIOVASCULAR: There was a regular rate and rhythm without any murmurs, gallops, rubs. Peripheral pulses were 2+ and symmetric. ABDOMEN: Soft and nontender with normal bowel sounds. No ascites was noted. MUSCULOSKELETAL: There was no joint tenderness or effusions noted. EXTREMITIES: No cyanosis, clubbing or edema. NEUROLOGIC: Alert and oriented x 3. Likely mild cognitive impairment. No focal neurological deficits. Objective Labs Result Diagrams: 03/02/20 05:30 03/02/20 05:30 Labs: Laboratory Results - last 24 hr 02/28/20 03/02/20 03/02/20 12:16 05:30 05:30 WBC 4.9 D RBC 2.57 L Hgb 7.5 L Hct 22.7 L MCV 88.3 MCH 29.1 MCHC 33.0 RDW 17.9 H Plt Count 11 L* Neut % (Auto) Not Reportable Lymph % (Auto) Not Reportable [place] % (Auto) Not Reportable Eos % (Auto) Not Reportable Baso % (Auto) Not Reportable Lymph # (Auto) Not Reportable [place] # (Auto) Not Reportable Baso # (Auto) Not Reportable Total Counted 100 Seg Neutrophils % 44.0 Band Neutrophils % 34.0 H Lymphocytes % (Manual) 15.0 L Monocytes % (Manual) 1.0 L Metamyelocytes % 3.0 H Myelocytes % 3.0 H Neutrophils # (Manual) 3822 Platelet Estimate Decreased on smear RBC Morphology See below Anisocytosis 2+ H Sodium 138 Potassium 3.6 Chloride 108 H Carbon Dioxide 29 BUN 14 Creatinine 0.63 Estimated GFR > 60.0 BUN/Creatinine Ratio 22.2 H Glucose 82 Calcium 10.7 H Magnesium 2.0 Blood Type A Positive [facility] Medical History Follicular non-Hodgkin's lymphoma SVT (supraventricular tachycardia) Surgical History History of removal of Port-a-Cath Social History household members: children Smoking Status: Former smoker alcohol intake: current substance use type: does not use Assessment & Plan Assessment & Plan narrative: Leigh Arredondo is a 74-year-old female with a past medical history SVT, multiple hematologic malignancies including follicular lymphoma in 2008, seemingly regressed but subsequently developed a Hodgkin lymphoma in 2017 which is stage IV who presented to the emergency room with worsening weakness and fatigue over the past few months, as well as recurrent fever who is admitted now with neutropenic fever. Oncology recommended neupogen today and continuing daily until ANC is >5000. 1. Neutropenic fever, acute, present on admission -Unlikely infectious in nature as patient has been having fevers over the prior 2 years likely secondary to her Hodgkin's lymphoma. She does have a chronic cough but no overt infectious signs or symptoms. And neutropenia/pancytopenia is more likely a result of her brentuximab which she received her 1st dose of on February 09. -continue with cefepime 2 g every 24 hours until discharge. Patient is hemodynamically stable and vancomycin was discontinued, she received a dose in the emergency room. -Dr. Rose recommended continuing antibiotics for now, started on neupogen 300 mg daily until ANC > 5000. Currently value 3822 after 1st dose. -chest x-ray does not show any focal infiltrates, urinalysis is unremarkable, and history and physical does not reveal any revealing source. Her Port-A-Cath does not appear to be infected on exam. -neutrophil count is 1120 on admission, consistent with mild neutropenia. Suspect pancytopenia is related to Brentuximab infusion. -procalcitonin is elevated to 32.64, slight decrease to 28, unclear significance and stopped trending. 2. Pancytopenia, acute, present on admission -patient with initial CBC showing leukopenia, white count of 1.4 with an absolute neutrophil count of 1120. Hemoglobin of 8.5, and platelet count of 11. Counts have been roughly stable, but Plt of 8 on HD#2 given 1 pack of platelets. Improved back to 11 today. Less likely low counts are related to her infection. -will continue to follow blood counts, transfuse platelets for a count less than 10 or less than 50 if active bleeding. Transfuse Hg for symptomatic disease or <7. -B12 within normal limits. 3. History of SVT, chronic, not present on admission -patient has recurrent SVT, and has sought care in the emergency room multiple times which has been relieved with adenosine. She currently takes diltiazem which we will continue. -no events thus far and have discontinued telemetry. 4. chronic severe protein calorie malnutrition - albumin 2.9 on admission, active malignancy, BMI 18.9 - shopper marketing manager consultation appreciated and supplementation provided. - due to malnutrition 5. Hodgkin's lymphoma, active, chronic, present on admission - patient currently being managed by oncology service with Dr. Rose, also followed at [facility] Dr. Haider. - most recent immunotherapy given 02/09, Brentuximab. Previously on Keytruda. Not recommended for bone marrow transplant per notes and patient. - oncology recommendations as ntoed above. 6. Chronic fatigue -suspect related to her progressive Hodgkin's lymphoma, possibly related to worsening anemia, although she does have a mild congestive appearance on her chest x-ray. ProBNP is 1310 but TTE was performed and did not show any evidence of valvular disease or heart failure. Code: Full, as discussed with the patient, however she is seemingly unclear about her prior advanced directive. She will have her son bring this in . Her son is her surrogate decision maker. DVT: Chemical prophylaxis On hold given thrombocytopenia Dispo: Patient is admitted under inpatient status. Anticipate discharge home with home health as patient does not wish to go to senior living. FEN/GI: Heart healthy diet Quality VTE Deep Vein Thrombosis/Pulmonary Embolism Present on Admission: No
--- NOTE | 2020-03-02 15:44 | PC.NURSE ---
Pt became delirious and febrile 103.5 around 1315. Pt was administered her 1300, 650mg Tylenol as scheduled and ice bags were applied to bilateral axilla. Pt was mumbling and not making sense. Multiple attempts were made to administer her PO tylenol with water but pt was spitting the tablets out. She did not follow commands well or track her situation. Pt was able to swallow her pills after chewing them with apple sauce. At 1430. Pt was alert and oriented to self, place and situation. Fever was down to 99.8 She sat up at the bedside and drank some water.
[2020-03-02] MEDS: dilTIAZem CD 180 MG CAP PO (17:24)
[2020-03-03] VITALS (15 sets, daily range): BP systolic 97–116; BP diastolic 52–68; PULSE 78–100; RESP 15–18; TEMP 34.4–37.3; O2SAT 93–99
[2020-03-03] MEDS: ACETAMINOPHEN 325 MG TABLET 650 MG PO ×5 (01:05→21:22)
--- NOTE | 2020-03-03 08:18 | DI.CT.S_ITS ---
PROCEDURE: CT PELVIS W CON INDICATIONS: Fall, severe thrombocytopenia TECHNIQUE: After the administration of intravenous contrast, 5 mm thick sections acquired from the iliac crests to the symphysis. 5 mm coronal and sagittal reformats were acquired. For radiation dose reduction, the following was used: automated exposure control, adjustment of mA and/or kV according to patient size. COMPARISON: [facility], CT, CT CHEST ABD PEL W CON, 12/02/2019, 9:36. [facility], NM, NM PET CT FUSION SKULL 2 THIGH, 01/13/2020, 15:05. FINDINGS: Image quality: Excellent. Peritoneum and bowel: Bowel loops demonstrate normal wall thickness and caliber. Interval development of moderate pelvic ascites and generalized abdominal ascites. The fluid is not hyperdense. Genitourinary: Bladder wall thickness is normal. Nodes and vessels: No iliac, pelvic, or inguinal adenopathy by size criteria. Iliac vessels demonstrate normal size and enhancement. Bones: No suspicious bony lesions. Miscellaneous: No inguinal hernias. The inferior aspect of the spleen is included on the study. There is ill-defined hypodensity posteriorly which may potentially represent acute traumatic splenic injury. This is not definite. No pelvic hematomas. IMPRESSION: 1. No pelvic fractures identified. 2. Ill-defined hypodensity posteriorly in the inferior aspect of the spleen. Cannot exclude a small laceration. The abdominal contents are minimally included on the study. 3. Development of moderate pelvic ascites. Dictated by: Tamir Fountain M.D. on 03/03/2020 at 9:12 Approved by: Tamir Fountain M.D. on 03/03/2020 at 9:15
[2020-03-03 08:23] LABS: Hematocrit 23.9 % (36-46); Hemoglobin 7.8 g/dL (12.0-16.0); Mean Corpuscular HGB Conc 32.5 % (30-36); Mean Corpuscular Hemoglobin 28.7 PG (26-34); Mean Corpuscular Volume 88.3 fL (80-100); Red Cell Distribution Width 17.6 % (11.6-14.8); White Blood Cell Count 3.3 X10^3/uL (4.5-11.0)
[2020-03-03 08:27] LABS: Add Manual Diff / Slide Review YES; Platelet Count 6 X10^3/uL (150-400)
[2020-03-03 09:01] LABS: Neutrophils Absolute Manual 2442 /uL (3000-5900); Nucleated Red Blood Cells 2 #/Diff; Platelet Estimate Decreased on smear; Total Cells Counted 100
[2020-03-03 09:02] LABS: Anisocytosis 1+; Dohle Bodies 1+; Toxic Vacuolation Present
[2020-03-03 09:03] LABS: Polychromasia 1+
--- NOTE | 2020-03-03 10:28 | PM.PN.1 ---
Subjective <Elsie Queen DO Marga - Last Filed: 03/05/20 00:27> Subjective Date Patient Seen: 03/03/20 Interval history: Leigh Arredondo is a 74-year-old female with a past medical history significant for SVT, follicular lymphoma in 2009 in remission, and Hodgkin's lymphoma stage IV 2017 who presented to the ED with progressive worsening weakness and fatigue over the past few months and neutropenic fever. The patient is resting at bedside comfortably. She had two controlled falls this morning landing on buttocks/hip with FX ARTIST. Plan for CT scan of pelvis to assess for bleeding due to severe thrombocytopenia. She denies any hip pain. Her platelet count is 6 and plan transfuse 1 possibly 2 units. She endorses worsening weakness and fatigue. She abraham not want to go care home facility for rehab but after fall may come around to the idea. She has had no fever for at least 24 hours. She denies headache, shortness of breath, chest pain, abdominal pain, nausea, vomiting, fever, chills, dysuria, diarrhea or constipation. She is voiding and eliminating without difficulty. She is up ambulating with assistance. Exam <Elsie Queen DO Marga - Last Filed: 03/05/20 00:27> Vital Signs (past 8 hours): - 03/03/20 04:00 03/03/20 05:00 03/03/20 09:00 Temperature 97.7 F 98.4 F Pulse Rate 78 100 H Respiratory Rate 18 16 Blood Pressure 116/68 106/64 Pulse Oximetry 99 99 95 03/03/20 09:20 Temperature 94 F L Pulse Rate 90 Respiratory Rate 16 Blood Pressure 110/66 Pulse Oximetry Oxygen Delivery Method Room Air Oxygen Flow Rate 0 Narrative Exam Narrative: General: Eldelry cachectic and frail appearing female in no acute distress, chronically ill, mildly withdrawn otherwise appropriately interactive. HEENT: Normocephalic, atraumatic. External ears without defect. Pupils equal, round, and reactive to light. Anicteric sclerae, moist conjunctivae, and no lid lag. Oropharynx free of erythema and cobble stoning with moist mucosa. Full body subcutaneous fat and muscle wasting. Neck: Supple with full range of motion. No jugular venous distension. No lymphadenopathy or thyromegaly. Cardiovascular: Regular rate and rhythm without murmurs, rubs, or gallops appreciated. Pulmonary: Clear to auscultation bilaterally without crackles, wheezes, or rhonchi. Normal respiratory effort with no use of accessory muscles. Abdomen: Soft, bowel tones present, nontender, nondistended. No hepatosplenomegaly or masses appreciated. No brusining of pelvis/hips, buttocks or abdomen. Extremities: No clubbing, cyanosis, or edema. Nurmerous skin lesions as below. Skin: Multiple scattered (on face and body) chronic malignant cutaneous lesions which are raised with black eschar now with minimal surrounding erythema and no drainage. Small subtle bruise on right knee possibly new and related to fall. Neurological: Cranial nerves grossly intact. Severe generalized weakness. Psychiatric: Withdrawn and depressed mood and affect. Tangential thinking. Alert and oriented to person, place, and time. Poor insight. Probable mild cognitive impairment. Objective <Elsie Gresham - Last Filed: 03/05/20 00:27> Labs Result Diagrams: 03/04/20 05:10 03/04/20 05:10 Labs: Laboratory Results - last 24 hr 02/28/20 03/03/20 12:16 08:07 WBC 3.3 L RBC 2.70 L Hgb 7.8 L Hct 23.9 L MCV 88.3 MCH 28.7 MCHC 32.5 RDW 17.6 H Plt Count 6 L* Neut % (Auto) Not Reportable Lymph % (Auto) Not Reportable Bates % (Auto) Not Reportable Eos % (Auto) Not Reportable Baso % (Auto) Not Reportable Lymph # (Auto) Not Reportable Bates # (Auto) Not Reportable Baso # (Auto) Not Reportable Total Counted 100 Seg Neutrophils % 35.0 L Band Neutrophils % 39.0 H Lymphocytes % (Manual) 15.0 L Atypical Lymphs % 5.0 H Monocytes % (Manual) 5.0 Metamyelocytes % 1.0 H Neutrophils # (Manual) 2442 L Nucleated RBCs 2 H Toxic Vacuolation Present H Dohle Bodies 1+ H Platelet Estimate Decreased on smear Plt Morphology Comment RBC Morphology See below Polychromasia 1+ H Anisocytosis 1+ H Blood Type A Positive PFSH <Elsie Gresham, DO - Last Filed: 03/05/20 00:27> Medical History Follicular non-Hodgkin's lymphoma SVT (supraventricular tachycardia) Surgical History History of removal of Port-a-Cath Social History household members: children Smoking Status: Former smoker alcohol intake: current substance use type: does not use Assessment & Plan <Elsie Gresham DO - Last Filed: 03/05/20 00:27> Assessment & Plan narrative: Leigh Arredondo is a 74-year-old female with a past medical history significant for SVT, follicular lymphoma in 2009 in remission, and Hodgkin's lymphoma stage IV 2017 who presented to the ED with progressive worsening weakness and fatigue over the past few months and neutropenic fever. 1. Acute neutropenic fever, with pancyopenai, present on admission. Resolved. -Unlikely infectious in nature as patient has been having fevers over the prior 2 years likely secondary to her Hodgkin's lymphoma. She does have a chronic cough but no overt infectious signs or symptoms. Chest x-ray did not demonstrate any acute cardiopulmonary process, urinalysis negative, Port-A-Cath in place without surrounding erythema or edema, and clinical exam unrevealing. Discontinued cefepime 2 g IV every 12 hours as there has been no infectious etiology identified. Neutropenia/pancytopenia is more likely a result of her brentuximab vedotin which she received 1st dose on 02/10/20. -Dr. Rose recommended Neupogen 300 mg daily until ANC > 5000 and ANC currently 3822. Discussed case with on-call oncologist Dr. Gongora who recommended ANC > 1000 and Plt > 10 and preferably 20. -Initial CBC demonstrated leukopenia with WBC 1.4 with an absolute neutrophil count of 1120, hemoglobin 8.5 and platelet count of 11. Blood counts stable except downward trend in platelets and received 1 U platelets and ordered additional 1 unit to be given today. and 2 additional units ordered for stand by. Transfusion goal: Platelets < 10 or Hemoglobin < 7.0. -Continue to monitor CBC 1-2 times daily and more frequently if hemodynamically unstable. 2. Recurrent Hodgkin's lymphoma stage IV with pancytopenia and severe fatigue, chronic, present on admission. Active. -Patient currently being managed by oncology with Dr. Rose at [facility] and Dr. Haider at [facility]. -Patient was switched from Keytruda to Brentuximab vedotin last dose 02/10/20. Patient is not considered bone marrow transplant candidate. -Ordered palliative care consultation, pending. 3. Ground level falls, not present on admission. Active. -Patient had 2 controlled falls in room with FX ARTIST present and fell on buttocks/hip. -Ordered CT pelvis with contrast to rule out pelvic bleed, pending. -Continue to monitor CBC 1-2 times daily and more frequently if hemodynamically unstable. Transfuse as above. 4. Chronic severe protein calorie malnutrition, present on admission. Stable. -BMI 18.9. -Secondary to ongoing oncologic hypermetabolism and treatment side effects as evidence by patient has new taste changes and further reduced appetite secondary to Hodgkins lymphoma and associated treatment, -4.8% unintentional weight loss in 3 weeks (severe), BMI 18.9 (severe for age), nausea and constipation for >2mo, food recall meeting <75% EER for 2 months, NFPE showing global fat losses and moderate muscle losses in temples, clavicle, deltoid. -Consulted business administration professor and we appreciate her time and recommendations. Continue supplementation. 5. History of SVT, chronic, present on admission. Stable. -Patient has had recurrent SVT and has sought care in the emergency room multiple times which has been relieved with adenosine. -Continue home diltiazem 180 mg daily. -No events thus far and discontinued telemetry. Code status: Full code (patient is thinking about code status and considering changing it), her son is her surrogate decision maker VTE prophylaxis: Chemical prophylaxis on hold given pancytopenia, SCDs Disposition: Patient remains hospitalized until blood counts are stable and highly recommend home with hospice versus home with home health. If patient does not decide to pursue hospice highly recommend care home facility for more involved care and rehabilitation but patient has refused thus far. Quality <Elsie Gresham DO - Last Filed: 03/05/20 00:27> VTE Deep Vein Thrombosis/Pulmonary Embolism Present on Admission: No
--- NOTE | 2020-03-03 11:03 | DI.CT.S_ITS ---
PROCEDURE: CT ABDOMEN PELVIS W CON INDICATIONS: evaluate for splenic injury TECHNIQUE: After the administration of intravenous contrast, 5 mm thick sections acquired from the diaphragm to the symphysis. 5 mm coronal and sagittal reformats were acquired. For radiation dose reduction, the following was used: automated exposure control, adjustment of mA and/or kV according to patient size. COMPARISON: [facility], CT, CT CHEST ABD PEL W CON, 12/02/2019, 9:36. [facility], CT, CT ABDOMEN PELVIS W CON, 05/15/2018, 16:02. FINDINGS: Image quality: Excellent. ABDOMEN: Lung bases: Small right pleural effusion and minimal left pleural effusion. Minimal bibasilar compressive atelectasis. Heart size is normal. Solid organs: Interval development of a low-density lesion in the left lobe of the liver measuring 3.1 cm. There are 3 smaller hypodensities, measuring 1.1 cm, 0.8 cm, and 1.6 cm, which are also new. Gallbladder is contracted, within normal limits. Biliary system is non dilated. Pancreas enhances normally. Interval development of splenomegaly. Spleen previously measured 11.2 cm in April,, and currently measures 16.4 cm. Additionally, it was normal in size in November,. Inhomogeneous enhancement of the spleen is of uncertain etiology. It is not definitely related to acute injury. No adrenal nodules. Kidneys demonstrate normal size and enhancement, without hydronephrosis. Peritoneum and bowel: Bowel loops demonstrate normal wall thickness and caliber. Mild to moderate generalized ascites, not present on the previous studies. Nodes and vessels: The previous retroperitoneal periaortic adenopathy, which was present in 2019, is much less impressive. There is, however, mesenteric adenopathy, which is consistent the given history of lymphoma. This is clearly progressed since the study of 12/02/2019. Aorta and inferior vena cava are normal in size. Miscellaneous: No ventral hernias. PELVIS: Genitourinary: Bladder wall thickness is normal. Miscellaneous: No inguinal hernias or adenopathy. Bones: No suspicious bony lesions. No vertebral body compression fractures. IMPRESSION: 1. Findings are consistent with recurrent lymphoma. These findings include development of splenomegaly and recurrent mesenteric adenopathy. 2. Development of multiple liver lesions. These may be related to lymphoma or a different malignant process. 3. Redevelopment of ascites. 4. No findings which are definitely consistent with sequelae of acute trauma. Dictated by: Tamir Fountain M.D. on 03/03/2020 at 11:16 Approved by: Tamir Fountain M.D. on 03/03/2020 at 11:32
--- NOTE | 2020-03-03 11:29 | TAR.TRANSNT ---
Addendum entered by Jenae Wilburn R.N. 03/08/20 00:48: Pt's platelet transfusion completed at approx. 1045. Pt tolerated well. Original Note: Pts temperature at 0920 is inaccurately entered onto the [facility] vital signs and is not editable. The accurate temperature for this time is 98.4
[2020-03-03] MEDS: FILGRASTIM-AAFI 300 MCG/0.5 ML SYRINGE SUBCUT (11:56)
[2020-03-03] MEDS: SODIUM CHLORIDE 0.9% FLUSH 10 ML IV ×2 (11:57→21:22)
[2020-03-03] MEDS: CEFEPIME 2 GM in SODIUM CHLORIDE 0.9% 100 ML 200 ML IV (12:03)
--- NOTE | 2020-03-03 12:53 | PT.IIE ---
Current Diagnoses Neutropenia, unspecified (02/28/20) Surgical History (Last Reviewed 03/02/20 @ 15:39 by Mihir Alejandra DO) History of removal of Port-a-Cath Medical History (Last Reviewed 03/02/20 @ 15:39 by Mihir Alejandra DO) Follicular non-Hodgkin's lymphoma SVT (supraventricular tachycardia) Physical Therapy Inpatient Evaluation/Re-Eval M1 PT/OT-IP Prior Functional Status Start: 02/29/20 08:43 Freq: NEEDED Status: Active Protocol: Document 03/03/20 12:21 AW (Rec: 03/03/20 12:52 AW [id number]) Medical Review Prior Functional Status Medical History Reviewed Yes Communication WNL. Pt is an effective verbal communicator. Mobility and Gait Pt is independent with household and short community distances. Her outings have been limited to doctors appointments recently. She states that in the past few weeks, she has felt weaker and less steady. She has been reaching for rubio and furniture during household ambulation. Activities of Daily Living and IADL's Independent with all ADL's. Pt 's friend, Faye, drives her to appointments Prior Functional Level (Other details) PMH includes SVT and Hodgkins lymphoma for which she is currently being treated. Social History Household Members children Living Arrangements House Number of Floors (Floors) Two Floors Number of Stairs To Enter/Railing? 3 CHANNING with narrow bilateral rails. Pt stays on the level vial inspector. Home Environment Standard Height Toilet Home Equipment Shower Seat without Backrest, Grab Bars In Shower Employment Status Retired Additional Social History Comment Pt lives in [place] with her 51-yo son who works game author . She has another son, Cesario, who lives in [facility] and friends who check in and assist her as needed. M1 PT/OT-IP Prior Functional Status Start: 02/29/20 15:40 Freq: NEEDED Status: Active Protocol: Document 02/29/20 13:36 [facility] (Rec: 02/29/20 16:02 [facility] [id number]) Medical Review Prior Functional Status Medical History Reviewed Yes Communication WNL. Pt is an effective verbal communicator. Mobility and Gait Pt is independent with household and short community distances. Her outings have been limited to doctors appointments recently. She states that in the past few weeks, she has felt weaker and less steady. She has been reaching for rubio and furniture during household ambulation. Activities of Daily Living and IADL's Independent with all ADL's. Pt 's friend, Faye, drives her to appointments Prior Functional Level (Other details) PMH includes SVT and Hodgkins lymphoma for which she is currently being treated. Social History Household Members children Living Arrangements House Number of Floors (Floors) Two Floors Number of Stairs To Enter/Railing? 3 CHANNING with narrow bilateral rails. Pt stays on the level vial inspector. Home Environment Standard Height Toilet Home Equipment Shower Seat without Backrest, Grab Bars In Shower Employment Status Retired Additional Social History Comment Pt lives in [place] with her 51-yo son who works game author . She has another son who lives in [facility] and friends who check in and assist her as needed. M2 PT-IP Current Condition Start: 02/29/20 08:43 Freq: NEEDED Status: Active Protocol: Document 03/03/20 12:21 AW (Rec: 03/03/20 12:52 AW [id number]) Physical Therapy Current Condition Current Condition Evaluation Date 03/03/20 Treatment Diagnosis neutropenic fever, generalized weakness Onset Date a few weeks Precautions Other Precautions falls M3 PT-IP Subjective Start: 02/29/20 08:43 Freq: NEEDED Status: Active Protocol: Document 03/03/20 12:21 AW (Rec: 03/03/20 12:52 AW [id number]) Subjective Physical Therapy Visit Type Type Re-Evaluation Visit Start Time 11:37 Visit Stop Time 12:10 Total Visit Minutes 33 Notes Pt's Hgb/Hct was 7.8/23.9 on last lab draw; platelets were 6. Pt received platelet transfusion this AM. PT cleared pt for activity with hospitalist prior to evaluation. PT avoids all resistive exercise at this encounter. Of note, nursing reports pt fell twice this AM and is reporting increasing weakness. Physical Therapy Visit Comments Patient Comments I was so lethargic yesterday and not much better today. Patient Goals Pt ultimately hopes to return home but is somewhat more open to the possibility of rehab at this time. Therapy Pain Assessment Pain When Pain Assessed At Rest Pain Present Pain Present Denied Pain M4 PT-IP Mobility and Gait Start: 02/29/20 08:43 Freq: NEEDED Status: Active Protocol: Document 03/03/20 12:21 AW (Rec: 03/03/20 12:52 AW [id number]) PT-Bed Mobility Assessment Supine to Sit Supine to Sit Standby Assistance Sit to Supine Sit to Supine Standby Assistance Scooting Scooting to Edge of Bed Standby Assistance PT-Transfer Assessment Sit to and From Stand Sit to and from Stand Contact Guard Assistance,Use of Upper Extremities Equipment Transfer Assistive Device Gait Belt,Front Wheeled Walker Orthotic/Prosthetic Devices or Brace: No Transfers Transfer Destination Chair Transfer Technique pt ambulated with FWW Transfer Ability Level of Assist Standby Assistance Comments Mobility Comments Pt was lying in bed as PT arrived. BP was 102/68 in supine. Pt completed supine to sit SBA and sat EOB. She was observed attempting to hold her phone with her left hand but kept dropping it. Pt stood from the bed in lowest position CGA using FWW. She ambulated around the room with FWW CGA and then transferred to the bedside chair with cues for walker management. Pt agreed to ambulate further. She donned her face mask and ambulated in the halls 150 feet with FWW CGA, requiring one standing rest break at 80 feet. Pt returned to the room and sat on the chair SBA. She was left with her call light and all needs in reach. Her son arrived to visit. Gait Assessment Gait Gait Assistance Required: Contact Guard Assist Distance (Feet) 150 Assistive Devices Assistive Device Gait Belt,Front Wheeled Walker Orthotic/Prosthetic Devices or Brace: No Gait Deviations General Gait Pattern Antalgic,Decreased Stride Length,Decreased Feet Clearance,Flexed Trunk,Lateral Trunk Lean Factors Limiting Gait Function Factors Limiting Gait Function Decreased Activity Tolerance, Decreased Strength,Poor Balance Comments Gait Comments This assessment represents a change in condition from prior evaluation. Pt required increased level of assist and an AD at this encounter. Stair Climbing Assessment Comments Stair Climbing Comments Not assessed. PT-Balance Assessment Sitting Balance and Reactions Static Sitting Balance Ability Good Dynamic Sitting Balance Ability Good Standing Balance and Reactions Static Standing Balance Ability Good Dynamic Standing Balance Ability Fair Device Used FWW M5 PT-IP Objective Assessments Start: 02/29/20 08:43 Freq: NEEDED Status: Active Protocol: Document 03/03/20 12:21 AW (Rec: 03/03/20 12:52 AW [id number]) Orientation Orientation/Cognition Level of Alertness Lethargic Language Function Ability No Deficits Noted Safety Awareness Decreased Safety Awareness Memory Description No Deficits Noted Comments Pt appears to lack insight into her current condition. Gross Range of Motion Upper Extremity ROM Assessment Left Impaired Impairments arthritic changes limit overhead movement Lower Extremity ROM Assessment Bilaterally Impaired Strength Lower Extremity Strength Assessment Bilaterally Impaired Hip 3+/5 Knee 4-/5 Comments Strength Comments Grades observational only. No MMT due to platelet count. Coordination Assessment Gross Coordination Gross Coordination WNL Sensation Assessment Sensation Gross Sensation WNL Muscle Tone Muscle Tone WNL Yes M6 PT-IP Treatment Start: 02/29/20 08:43 Freq: NEEDED Status: Active Protocol: Document 03/03/20 12:21 AW (Rec: 03/03/20 12:52 AW [id number]) Physical Therapy Treatment Education Education Provided Safety Other Treatments Other Treatment Performed Initiated discharge planning conversation with pt and her son. Provided rationale for use of an assistive device to increase pt's safety and independence. M7 PT-IP Assessment and Plan Start: 02/29/20 08:43 Freq: NEEDED Status: Active Protocol: Document 03/03/20 12:21 AW (Rec: 03/03/20 12:52 AW [id number]) PT Summary Assessment and Plan Potential Rehabilitation Potential Fair Status of Condition at Evaluation Evolving Summary Impairments Strength,Balance,Transfers, Gait,Activity Tolerance Assessment Summary Miles is seen for re-evaluation in the context of precipitous decline in strength as well as two observed falls on the AC unit this AM. Pt is requiring increased level of assist and an assistive device at this encounter. Pt presents with increased weakness, decreased balance, and decreased activity tolerance compared with Saturday assessment. At this time, PT recommends SNF rehab to improve strength, balance, and activity tolerance for pt's ability to participate in her own care. If pt decides to go home, 15/10 assist and PT are recommended. Goals Bed Mobility Goal Independent Transfer Goal Independent,Front Wheeled Walker Gait Goal Standby Assistance,Front Wheel Walker Gait Distance 250 Other Goals - up/down 3 steps with B rails IND Days to Meet Goals 10 Frequency of Treatment Frequency Of Treatment Once a Day Treatment Plan Physical Therapy Treatment Plan Bed Mobility Training,Transfer Training,Gait Training, Therapeutic Exercise,Balance Retraining,Neuromuscular Re-ed Other Recommendations and Next Treatment Check Hbg/Hct/platelets. Gait Focus with FWW. Activity tolerance. Recommendations To Nursing Amount of Assist Needed 1 Person Assist Discharge Recommendations PT Discharge Recommendations SNF Rehab Other Discharge Recommendations SNF vs 15/10 assist and HH Transportation Needs at Discharge Wheelchair/Cabulance
--- NOTE | 2020-03-03 12:53 | PT.IIE ---
Current Diagnoses Neutropenia, unspecified (02/28/20) Surgical History (Last Reviewed 03/02/20 @ 15:39 by Mihir Alejandra DO) History of removal of Port-a-Cath Medical History (Last Reviewed 03/02/20 @ 15:39 by Mihir Alejandra DO) Follicular non-Hodgkin's lymphoma SVT (supraventricular tachycardia) Physical Therapy Inpatient Re-Evaluation M1 PT/OT-IP Prior Functional Status Start: 02/29/20 08:43 Freq: NEEDED Status: Active Protocol: Document 03/03/20 12:21 AW (Rec: 03/03/20 12:52 AW [id number]) Medical Review Prior Functional Status Medical History Reviewed Yes Communication WNL. Pt is an effective verbal communicator. Mobility and Gait Pt is independent with household and short community distances. Her outings have been limited to doctors appointments recently. She states that in the past few weeks, she has felt weaker and less steady. She has been reaching for rubio and furniture during household ambulation. Activities of Daily Living and IADL's Independent with all ADL's. Pt 's friend, Faye, drives her to appointments Prior Functional Level (Other details) PMH includes SVT and Hodgkins lymphoma for which she is currently being treated. Social History Household Members children Living Arrangements House Number of Floors (Floors) Two Floors Number of Stairs To Enter/Railing? 3 CHANNING with narrow bilateral rails. 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 Home Environment Standard Height Toilet Home Equipment Shower Seat without Backrest, Grab Bars In Shower Employment Status Retired Additional Social History Comment Pt lives in [place] with her 51-yo son who works interactive multimedia designer . She has another son, Cesario, who lives in [facility] and friends who check in and assist her as needed. M2 PT-IP Current Condition Start: 02/29/20 08:43 Freq: NEEDED Status: Active Protocol: Document 03/03/20 12:21 AW (Rec: 03/03/20 12:52 AW [id number]) Physical Therapy Current Condition Current Condition Evaluation Date 03/03/20 Treatment Diagnosis neutropenic fever, generalized weakness Onset Date a few weeks Precautions Other Precautions falls M3 PT-IP Subjective Start: 02/29/20 08:43 Freq: NEEDED Status: Active Protocol: Document 03/03/20 12:21 AW (Rec: 03/03/20 12:52 AW [id number]) Subjective Physical Therapy Visit Type Type Re-Evaluation Visit Start Time 11:37 Visit Stop Time 12:10 Total Visit Minutes 33 Notes Pt's Hgb/Hct was 7.8/23.9 on last lab draw; platelets were 6. Pt received platelet transfusion this AM. PT cleared pt for activity with hospitalist prior to evaluation. PT avoids all resistive exercise at this encounter. Of note, nursing reports pt fell twice this AM and is reporting increasing weakness. Physical Therapy Visit Comments Patient Comments I was so lethargic yesterday and not much better today. Patient Goals Pt ultimately hopes to return home but is somewhat more open to the possibility of rehab at this time. Therapy Pain Assessment Pain When Pain Assessed At Rest Pain Present Pain Present Denied Pain M4 PT-IP Mobility and Gait Start: 02/29/20 08:43 Freq: NEEDED Status: Active Protocol: Document 03/03/20 12:21 AW (Rec: 03/03/20 12:52 AW [id number]) PT-Bed Mobility Assessment Supine to Sit Supine to Sit Standby Assistance Sit to Supine Sit to Supine Standby Assistance Scooting Scooting to Edge of Bed Standby Assistance PT-Transfer Assessment Sit to and From Stand Sit to and from Stand Contact Guard Assistance,Use of Upper Extremities Equipment Transfer Assistive Device Gait Belt,Front Wheeled Walker Orthotic/Prosthetic Devices or Brace: No Transfers Transfer Destination Chair Transfer Technique pt ambulated with FWW Transfer Ability Level of Assist Standby Assistance Comments Mobility Comments Pt was lying in bed as PT arrived. BP was 102/68 in supine. Pt completed supine to sit SBA and sat EOB. She was observed attempting to hold her phone with her left hand but kept dropping it. Pt stood from the bed in lowest position CGA using FWW. She ambulated around the room with FWW CGA and then transferred to the bedside chair with cues for walker management. Pt agreed to ambulate further. She donned her face mask and ambulated in the halls 150 feet with FWW CGA, requiring one standing rest break at 80 feet. Pt returned to the room and sat on the chair SBA. She was left with her call light and all needs in reach. Her son arrived to visit. Gait Assessment Gait Gait Assistance Required: Contact Guard Assist Distance (Feet) 150 Assistive Devices Assistive Device Gait Belt,Front Wheeled Walker Orthotic/Prosthetic Devices or Brace: No Gait Deviations General Gait Pattern Antalgic,Decreased Stride Length,Decreased Feet Clearance,Flexed Trunk,Lateral Trunk Lean Factors Limiting Gait Function Factors Limiting Gait Function Decreased Activity Tolerance, Decreased Strength,Poor Balance Comments Gait Comments This assessment represents a change in condition from prior evaluation. Pt required increased level of assist and an AD at this encounter. Stair Climbing Assessment Comments Stair Climbing Comments Not assessed. PT-Balance Assessment Sitting Balance and Reactions Static Sitting Balance Ability Good Dynamic Sitting Balance Ability Good Standing Balance and Reactions Static Standing Balance Ability Good Dynamic Standing Balance Ability Fair Device Used FWW M5 PT-IP Objective Assessments Start: 02/29/20 08:43 Freq: NEEDED Status: Active Protocol: Document 03/03/20 12:21 AW (Rec: 03/03/20 12:52 [id number]) Orientation Orientation/Cognition Level of Alertness Lethargic Language Function Ability No Deficits Noted Safety Awareness Decreased Safety Awareness Memory Description No Deficits Noted Comments Pt appears to lack insight into her current condition. Gross Range of Motion Upper Extremity ROM Assessment Left Impaired Impairments arthritic changes limit overhead movement Lower Extremity ROM Assessment Bilaterally Impaired Strength Lower Extremity Strength Assessment Bilaterally Impaired Hip 3+/5 Knee 4-/5 Comments Strength Comments Grades observational only. No MMT due to platelet count. Coordination Assessment Gross Coordination Gross Coordination WNL Sensation Assessment Sensation Gross Sensation WNL Muscle Tone Muscle Tone WNL Yes M6 PT-IP Treatment Start: 02/29/20 08:43 Freq: NEEDED Status: Active Protocol: Document 03/03/20 12:21 AW (Rec: 03/03/20 12:52 [id number]) Physical Therapy Treatment Education Education Provided Safety Other Treatments Other Treatment Performed Initiated discharge planning conversation with pt and her son. Provided rationale for use of an assistive device to increase pt's safety and independence. M7 PT-IP Assessment and Plan Start: 02/29/20 08:43 Freq: NEEDED Status: Active Protocol: Document 03/03/20 12:21 AW (Rec: 03/03/20 12:52 [id number]) PT Summary Assessment and Plan Potential Rehabilitation Potential Fair Status of Condition at Evaluation Evolving Summary Impairments Strength,Balance,Transfers, Gait,Activity Tolerance Assessment Summary Miles is seen for re-evaluation in the context of precipitous decline in strength as well as two observed falls on the AC unit this AM. Pt is requiring increased level of assist and an assistive device at this encounter. Pt presents with increased weakness, decreased balance, and decreased activity tolerance compared with Saturday assessment. At this time, PT recommends SNF rehab to improve strength, balance, and activity tolerance for pt's ability to participate in her own care. If pt decides to go home, / assist and HH PT are recommended. Goals Bed Mobility Goal Independent Transfer Goal Independent,Front Wheeled Walker Gait Goal Standby Assistance,Front Wheel Walker Gait Distance 250 Other Goals - up/down 3 steps with B rails IND Days to Meet Goals 10 Frequency of Treatment Frequency Of Treatment Once a Day Treatment Plan Physical Therapy Treatment Plan Bed Mobility Training,Transfer Training,Gait Training, Therapeutic Exercise,Balance Retraining,Neuromuscular Re-ed Other Recommendations and Next Treatment Check Hbg/Hct/platelets. Gait Focus with FWW. Activity tolerance. Recommendations To Nursing Amount of Assist Needed 1 Person Assist Discharge Recommendations PT Discharge Recommendations SNF Rehab Other Discharge Recommendations SNF vs 15/10 assist and HH Transportation Needs at Discharge Wheelchair/Cabulance
--- NOTE | 2020-03-03 14:05 | CM.DPC ---
DCP Cont: Met with patient and son, Cesario, who was at bedside. Discussed discharge planning, for it is noted that patient has exhibited increased weakness. Fernandez Long, stated that patient may be willing to consider detention rehab. This block and case maker had given patient a Senior Resource book for private caregivers, as well as hospice brochure, per her request. Mentioned skilled rehab, if patient needs. Gave her and son a Medicare Choice list of facilities. Patient stated, she would not want to go to [facility], for sure. Stated that her mother was there, and not happy with the care. Gave her other facility information in [facility] and [place]. Stated that her and her son can discuss it. Per, son, stated that between him and his brother, they would be willing to ensure that they can provide their mother with 24 hour care, but is not their expertise. P: DCP to continue to follow. May need to follow up tomorrow to see if patient and son have made a decision. May also want to consider palliative care consult, and can discuss at team rounds tomorrow. Peggy Gama RN/Labeling Associate
--- NOTE | 2020-03-03 14:08 | OT.IPNOTE ---
Attempted to see pt for OT eval, pt states feeling too tired at this time as just got up 30 minutes ago. Able to talk to pt and pt's son regarding getting more equipment needs for home - such as shower chair, FWW, and BSC. Pt and son not undecided whether to go home versus skilled rehab. No charge. To attempt to see pt tomorrow for OT re-eval.
--- NOTE | 2020-03-03 15:43 | CM.DPC ---
DCP Cont: Went ahead and faxed nursing rehab facilities in case it is determined that patient will need chcf. Faxed [facility], [facility], and [facility], in case patient needs skilled rehab. Updated Dr. Gresham that facilities were faxed. P: DCP to check in with patient, and see how she does with P.T. tomorrow. Plan is either for chcf, or home health, under [facility]. May need to follow up with facilties as well. Peggy Gama RN/Data Entry Manager
[2020-03-03] MEDS: dilTIAZem CD 180 MG CAP PO (16:59)
[2020-03-03 17:52] LABS: Hematocrit 22.9 % (36-46); Hemoglobin 7.5 g/dL (12.0-16.0); Mean Corpuscular HGB Conc 32.6 % (30-36); Red Blood Cell Count 2.58 X10^6/uL (4.0-5.2); Red Cell Distribution Width 17.8 % (11.6-14.8); White Blood Cell Count 5.2 X10^3/uL (4.5-11.0)
[2020-03-03 18:02] LABS: Platelet Count 12 X10^3/uL (150-400)
[2020-03-03 18:12] LABS: Neutrophils Absolute Manual 4004 /uL (3000-5900); Total Cells Counted 100
[2020-03-03 18:20] LABS: Anisocytosis 1+; Poikilocytosis 1+; Polychromasia 1+
--- NOTE | 2020-03-03 20:23 | PM.CN ---
History of Present Illness Consult details Date Patient Seen: 03/03/20 Time Patient Seen: 20:24 Chief complaint: dehydration, needs fluids Narrative: 74-year-old woman with lymphoma seen in consultation for incidental splenic radiographic abnormality. She is in the hospital for dehydration and thrombocytopenia she had a ground level fall did not strike her head or abdomen or lose consciousness. A CT pelvis demonstrated an ill-defined hypodensity posteriorly in the inferior aspect of the spleen. Cannot exclude a small laceration. The spleen was not entirely seen on this study and therefore a CT abdomen pelvis was obtained which demonstrates Interval development of splenomegaly. Inhomogeneous enhancement of the spleen is of uncertain etiology. It is not definitely related to acute injury. She has no abdominal pain nausea or vomiting. Currently Hct 23 and 23 yesterday, plt 12 after transfusion of plts. Meds Home Medications and Allergies Home Medications Medication Instructions Recorded Confirmed Type diltiazem HCl 180 mg 180 mg PO QPM #90 cap 06/26/19 02/28/20 Rx capsule,extended release 24 hr Allergies Allergy/AdvReac Type Severity Reaction Status Date / Time NSAIDS (Non-Steroidal Allergy Intermediate HIVES Verified 02/28/20 10:27 Anti-Inflamma [NSAIDS (NON-STEROIDAL ANTI-INFLAMMA] amoxicillin [AMOXICILLIN] Allergy Mild rash Verified 02/28/20 10:27 aspirin Allergy Verified 02/28/20 10:27 Review of Systems Review of Systems Narrative: A 10 point review of systems is negative except as noted in the HPI Exam Vital Signs (past 8 hours): - 03/03/20 15:45 03/03/20 16:30 Temperature 98.2 F Pulse Rate 81 Respiratory Rate 18 Blood Pressure 101/61 Pulse Oximetry 96 96 Oxygen Delivery Method Room Air Oxygen Flow Rate 0 Narrative Exam Narrative: General elderly woman alert oriented no acute distress Chest nonlabored respirations Cardiac regular rate and rhythm Abdomen soft nontender nondistended Extremities multiple bruises nontender Objective Labs Result Diagrams: 03/03/20 17:40 03/02/20 05:30 Labs: Laboratory Results - last 24 hr 02/28/20 03/03/20 03/03/20 12:16 08:07 17:40 WBC 3.3 L 5.2 D RBC 2.70 L 2.58 L Hgb 7.8 L 7.5 L Hct 23.9 L 22.9 L MCV 88.3 89.0 MCH 28.7 29.0 MCHC 32.5 32.6 RDW 17.6 H 17.8 H Plt Count 6 L* 12 L* Neut % (Auto) Not Reportable Lymph % (Auto) Not Reportable [place] % (Auto) Not Reportable Eos % (Auto) Not Reportable Baso % (Auto) Not Reportable Lymph # (Auto) Not Reportable [place] # (Auto) Not Reportable Baso # (Auto) Not Reportable Total Counted 100 100 Seg Neutrophils % 35.0 L 65.0 D Band Neutrophils % 39.0 H 12.0 H Lymphocytes % (Manual) 15.0 L 13.0 L Atypical Lymphs % 5.0 H 2.0 H Monocytes % (Manual) 5.0 8.0 Metamyelocytes % 1.0 H Neutrophils # (Manual) 2442 L 4004 Nucleated RBCs 2 H Toxic Vacuolation Present H Dohle Bodies 1+ H Platelet Estimate Decreased on smear Plt Morphology Comment RBC Morphology See below See below Polychromasia 1+ H 1+ H Poikilocytosis 1+ H Anisocytosis 1+ H 1+ H Blood Type A Positive Assessment & Plan Assessment & Plan narrative: 74-year-old female with lymphoma and thrombocytopenia who sustained a ground level fall and has an incidental splenic radiographic abnormality. She has no abdominal pain her hematocrit is stable. I reviewed the CT abdomen pelvis and there was no evidence of active splenic hemorrhage or hematoma surrounding the spleen. I suspect the radiographic abnormality is secondary to her lymphoma and its splenic involvement rather than an acute traumatic incident to the spleen. Recommend repeating the CBC tomorrow and monitor her abdominal examination. If her hemodynamics change or she develops abdominal pain will need to reassess.
--- NOTE | 2020-03-03 22:32 | PC.NURSE ---
pt is very weak. will be using the [facility] for now. both her knees buckle. poor appetite, she only ate 25% of her meal. pt denied any pain. afebrile. new bruise to her L.knee from fall this morning.
--- NOTE | 2020-03-03 23:53 | PC.NURSE ---
Addendum entered by Holley [place] R.N. 03/04/20 06:37: 0600 Lab was by to do a STAT type and screen for RBC transfusion. The patient initially refused having anymore blood draws. She stated she is tired of being poked, it hurts too much. The patient has a port in her chest for chemotherapy, but cannot be accessed. I am writing this note to recommend to the provider to have a PICC line placed for this patient. It will make blood draws and transfusions much more comfortable for her. Original Note: 2300 Received safe patient hand-off. The patient is resting in bed, prone position. No s/sx of distress. The bed alarm is on. Her left forearm IV is saline-locked. Platelet transfusion will begin shortly.
[2020-03-04] VITALS (18 sets, daily range): BP systolic 103–123; BP diastolic 53–73; PULSE 82–95; RESP 14–20; TEMP 36.2–37.5; O2SAT 88–93
[2020-03-04] MEDS: CEFEPIME 2 GM in SODIUM CHLORIDE 0.9% 100 ML 200 ML IV ×2 (01:11→11:49)
[2020-03-04] MEDS: ACETAMINOPHEN 325 MG TABLET 650 MG PO ×4 (01:11→16:24)
[2020-03-04 05:47] LABS: Mean Corpuscular HGB Conc 32.8 % (30-36); Mean Corpuscular Hemoglobin 29.3 PG (26-34); Mean Corpuscular Volume 89.4 fL (80-100); Red Blood Cell Count 2.24 X10^6/uL (4.0-5.2); Red Cell Distribution Width 18.4 % (11.6-14.8); White Blood Cell Count 4.8 X10^3/uL (4.5-11.0)
[2020-03-04 05:49] LABS: BUN Creatinine Ratio 26.5 (6-22); Blood Urea Nitrogen 18 mg/dL (7-17); Calcium 11.8 mg/dL (8.4-10.2); Carbon Dioxide 32 mmol/L (22-32); Chloride 108 mmol/L (98-107); Estimated Glomerular Filt Rate > 60.0 mL/min (>60); Glucose 88 mg/dL (80-110); HEMOLYSIS < 15 (0-50); Magnesium 2.1 mg/dL (1.6-2.3); Potassium 3.3 mmol/L (3.4-5.1); Sodium 138 mmol/L (137-145)
[2020-03-04 05:51] LABS: Add Manual Diff / Slide Review YES
[2020-03-04 05:52] LABS: Hematocrit 20.1 % (36-46); Hemoglobin 6.6 g/dL (12.0-16.0); Platelet Count 15 X10^3/uL (150-400)
[2020-03-04 06:58] LABS: Anisocytosis 2+; Poikilocytosis 2+; Tear Drop Cells 2+; Total Cells Counted 100
[2020-03-04 06:59] LABS: Hypochromasia 1+
--- NOTE | 2020-03-04 10:00 | PT-IP ANOTE ---
Per RN, hold on PT today d/t pts low H&H
[2020-03-04 10:28] LABS: Nucleated Red Blood Cells 2 #/Diff
[2020-03-04 10:29] LABS: Neutrophils Absolute Manual 3600 /uL (3000-5900)
[2020-03-04] MEDS: FILGRASTIM-AAFI 300 MCG/0.5 ML SYRINGE SUBCUT (10:33)
[2020-03-04] MEDS: POTASSIUM CHLORIDE 40 MEQ in SODIUM CHLORIDE 0.9% 500 ML 130 ML IV (11:19)
[2020-03-04] MEDS: LIDOCAINE 1% 20 ML INJ (11:30)
--- NOTE | 2020-03-04 11:32 | P.PN_ITS ---
Subjective Subjective Date Patient Seen: 03/04/20 Interval history: Leigh Arredondo is a 74-year-old female with a past medical history significant for SVT, follicular lymphoma in 2009 in remission and recurrent Hodgkin's lymphoma stage IV 2017 who presented to the ED with progressive worsening weakness and fatigue over the past few months and neutropenic fever. The patient is resting in bed comfortably. She continues to have severe fatigue and weakness. She perseverates on her dry mouth and thirst. She remains afebrile. She denies headache, shortness of breath, chest pain, abdominal pain, nausea, vomiting, fever, chills, dysuria, diarrhea or constipation. She is voiding and eliminating without difficulty. She is up ambulating minimally with assistance. Attempted to discuss the patient's goals of care, however, she is not able to come to any type of decision regarding her care. She vocalizes understanding that her recurrent Hodgkin's lymphoma is progressive and incura ble, her blood counts continue to trend down despite multiple transfusions and she is high risk of bleeding especially if she continues to fall. Discussed the patient's wishes to return home and avoid nursing home facility. Informed the patient that she requires a significant amount of care and that going home independently is unrealistic. Her son Cesario, has already sought out hospice and started the consent process, as well as, in-home caregiving. Plan for palliative care consultation later this afternoon. Exam Vital Signs (past 8 hours): - 03/04/20 15:32 03/04/20 15:44 03/04/20 15:57 Temperature 98.6 F 98.6 F 98.6 F Pulse Rate 85 85 85 Respiratory Rate 20 20 20 Blood Pressure 110/63 110/63 110/63 Pulse Oximetry 90 L 03/04/20 16:10 03/04/20 17:00 03/04/20 18:51 Temperature 97.6 F 98.6 F Pulse Rate 82 88 Respiratory Rate 20 18 Blood Pressure 118/66 110/73 Pulse Oximetry 90 L 03/04/20 20:05 Temperature 99.5 F Pulse Rate 85 Respiratory Rate 18 Blood Pressure 110/73 Pulse Oximetry 93 Oxygen Delivery Method Room Air Oxygen Flow Rate 0 Narrative Exam Narrative: General: Eldelry cachectic and frail appearing female in no acute distress, chronically ill, mildly withdrawn otherwise appropriately interactive. HEENT: Normocephalic, atraumatic. External ears without defect. Pupils equal, round, and reactive to light. Anicteric sclerae, moist conjunctivae, and no lid lag. Oropharynx free of erythema and cobble stoning with moist mucosa. Neck: Supple with full range of motion. No jugular venous distension. No lymphadenopathy or thyromegaly. Cardiovascular: Regular rate and rhythm without murmurs, rubs, or gallops appreciated. Pulmonary: Clear to auscultation bilaterally without crackles, wheezes, or rhonchi. Normal respiratory effort with no use of accessory muscles. Abdomen: Soft, bowel tones present, nontender, nondistended. No hepatosplenomegaly or masses appreciated. No brusining of pelvis/hips, buttocks or abdomen. Extremities: No clubbing, cyanosis, or edema. Nurmerous skin lesions as below. Skin: Multiple scattered (on face and body) chronic malignant cutaneous lesions which are raised with black eschar now with minimal surrounding erythema and no drainage. Small subtle bruise on right knee possibly new and related to fall. Neurological: Cranial nerves grossly intact. Severe generalized weakness. Psychiatric: Withdrawn and depressed mood and affect. Tangential thinking. Alert and oriented to person, place, and time. Poor insight. Probable mild cognitive impairment. Objective Labs Result Diagrams: 03/05/20 05:40 03/05/20 05:40 Labs: Laboratory Results - last 24 hr 03/04/20 03/04/20 03/04/20 05:10 05:10 06:35 WBC 4.8 RBC 2.24 L Hgb 6.6 L* Hct 20.1 L* MCV 89.4 MCH 29.3 MCHC 32.8 RDW 18.4 H Plt Count 15 L* Neut % (Auto) Not Reportable Lymph % (Auto) Not Reportable [place] % (Auto) Not Reportable Eos % (Auto) Not Reportable Baso % (Auto) Not Reportable Lymph # (Auto) Not Reportable [place] # (Auto) Not Reportable Baso # (Auto) Not Reportable Total Counted 100 Seg Neutrophils % 53.0 Band Neutrophils % 22.0 H Lymphocytes % (Manual) 13.0 L Atypical Lymphs % Monocytes % (Manual) 7.0 Basophils % (Manual) 3.0 H Metamyelocytes % 2.0 H Neutrophils # (Manual) 3600 Nucleated RBCs 2 H RBC Morphology See below Hypochromasia 1+ H Poikilocytosis 2+ H Anisocytosis 2+ H Tear Drop Cells 2+ H Sodium 138 Potassium 3.3 L Chloride 108 H Carbon Dioxide 32 BUN 18 H Creatinine 0.68 Estimated GFR > 60.0 BUN/Creatinine Ratio 26.5 H Glucose 88 Calcium 11.8 H Magnesium 2.1 Blood Type A Positive Antibody Screen Negative Crossmatch See Detail [facility] Medical History Follicular non-Hodgkin's lymphoma SVT (supraventricular tachycardia) Surgical History History of removal of Port-a-Cath Social History household members: children Smoking Status: Former smoker alcohol intake: current substance use type: does not use Assessment & Plan Assessment & Plan narrative: Leigh Arredondo is a 74-year-old female with a past medical history significant for SVT, follicular lymphoma in 2008 in remission, and Hodgkin's lymphoma stage IV 2017 who presented to the ED with progressive worsening weakness and fatigue over the past few months and neutropenic fever. 1. Acute neutropenic fever with pancytopenia, present on admission. Neutropenic fever resolved and pancytopenia active. -Unlikely infectious in nature as patient has been having fevers over the prior 2 years likely secondary to her Hodgkin's lymphoma. She does have a chronic cough but no overt infectious signs or symptoms. Chest x-ray did not demonstrate any acute cardiopulmonary process, urinalysis negative, Port-A-Cath in place without surrounding erythema or edema, and clinical exam unrevealing. Discontinued cefepime 2 g IV every 12 hours as there has been no infectious etiology identified. Neutropenia/pancytopenia is more likely a result of her brentuximab vedotin which she received 1st dose on 02/10/20. -Initial CBC demonstrated leukopenia with WBC 1.4 with an absolute neutrophil count of 1120, hemoglobin 8.5 and platelet count of 11. Blood counts continue to trend down despite multiple transfusions. Patient has received 2 units PRBC, 3 units platelets and Neupogen 300 mg daily. Discussed case with on-call oncologist, Dr. Gongora, who recommended Neupogen if ANC < 1000 and transfuse PRBC if hemoglobin < 7.0 and and platelets if platelets < 10.0. -Continue to monitor CBC daily and more frequently if hemodynamically unstable. 2. Recurrent Hodgkin's lymphoma stage IV with pancytopenia and severe fatigue, chronic, present on admission. Active. -Patient currently being managed by oncology with Dr. Rose at [facility] and Dr. Haider at [facility]. -Patient was switched from Keytruda to Brentuximab vedotin last dose 02/10/20. Patient is not considered a bone marrow transplant candidate. -CT abdomen and pelvis with contrast demonstrated recurrence of lymphoma in liver, spleen and mesenteric adenopathy. -Patient has severe fatigue, progressive generalized weakness, severe protein calorie malnutrition with full body subcutaneous fat and muscle wasting. Ordered palliative care consultation, Mitali GUZMÁN, to establish goals of care and discuss code status, pending. We appreciate her time and recommendations. 3. Generalized weakness with recurrent falls, present on admission.Active. 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 -CT abdomen pelvis did not demonstrate any pelvic or abdominal bleeding. There was a questionable splenic hypodensity which could represent splenic laceration and consulted general surgery, Dr. Woodson, who repeated CT abdomen and pelvis with contrast which demonstrated recurrence of lymphoma in liver, spleen and mesenteric adenopathy. Patient is not actively bleeding and no surgical intervention necessary. 4. Chronic severe protein calorie malnutrition, present on admission. Stable. -BMI 18.9. -Secondary to ongoing oncologic hypermetabolism and treatment side effects as evidence by patient has new taste changes and further reduced appetite secondary to Hodgkins lymphoma and associated treatment, -4.8% unintentional weight loss in 3 weeks (severe), BMI 18.9 (severe for age), nausea and constipation for >2mo, food recall meeting <75% EER for 2 months, NFPE showing global fat losses and moderate muscle losses in temples, clavicle, deltoid. -Consulted school boat driver and we appreciate her time and recommendations. Continue supplementation. 5. History of SVT, chronic, present on admission. Stable. -Patient has had recurrent SVT and has sought care in the emergency room multiple times which has been relieved with adenosine. -Continue home diltiazem 180 mg daily. -No events thus far and discontinued telemetry. Code status: Full code (patient is thinking about code status and considering changing it), her son is her surrogate decision maker VTE prophylaxis: Chemical prophylaxis on hold given pancytopenia, SCDs Disposition: Patient remains hospitalized until blood counts are stable and highly recommend home with hospice versus home with home health. If patient does not decide to pursue hospice highly recommend nursing home facility for more involved care and rehabilitation but patient has refused thus far. Quality VTE Deep Vein Thrombosis/Pulmonary Embolism Present on Admission: No
--- NOTE | 2020-03-04 12:54 | OT.IPNOTE ---
Pt with H&H of 6.6 and 20.1 and PLT 15. Pt is not appropriate for therapy services today. Will hold and follow up tomorrow.
--- NOTE | 2020-03-04 13:26 | CM.DPNOTE ---
Faxed requestedmed list and recent clinicals to Viviana at [facility] on 03/04/20. Steff Lynch CM Asst.
--- NOTE | 2020-03-04 13:27 | P.CONS_ITS ---
History of Present Illness Consult details Date Patient Seen: 03/04/20 Time Patient Seen: 15:00 Chief complaint: dehydration, needs fluids Reason for consult: Palliative medicine consultation Requesting provider: Elsie Gresham Narrative: Reason for Consultation: Palliative medicine consultation received from Dr. Elsie Gresham regarding this 74-year-old woman, Leigh Arredondo, who presented to the ED at [facility] 02/28/2020 for evaluation of intermittent fevers and weakness, recent vomiting. Patient is followed by oncology, Dr. Colvin and Dr. Haider at [facility] (followed previously by Dr. Lillie Ponce at [facility]), for treatment of Stage 4 Hodgkin's Lymphoma (diagnosed per biopsy 04/2016 with PET scan confirming Stage 4 disease), with history of Follicular Lymphoma (originally diagnosed in 2008), in remission. Per ED notes, patient indicated that she developed SVT approximately 1 week prior to presentation with her fevers, but denied chest palpitations upon presentation. Previous to this hospitalization, patient has not required any transfusions of blood products. Patient found to be febrile with temperature 101 with borderline hypotension. Labs revealing of pancytopenia (WBC 1.4 ANC 1120 Hgb 8.5 Plts 11) and mild hyponatremia (Na 131), elevated AST (53), elevated procalcitonin (32.64). CXR revealing of mild interstitial predominance, CT head negative. COVID-19 negative. UA negative. Started on IV Cefepime and Vancomycin and admit to the medical floor for further workup and treatment of presumed sepsis of undetermined origin. Patient has received multiple transfusions of both packed red blood cells and platelets, and despite these efforts, patient's pancytopenia persists. Dr. Gresham reports that the patient's labs indicate that she has potentially converted to B-cell lymphoma. Pancytopenia has been treated with multiple transfusions of packed red blood cells, four transfusions of 10-pk platelets over the past 24 hours. Unfortunately, patient's platelets continue to be critically low. She sustained two falls on 03/03/2020. Initial plans for placement at shelter for aggressive, restorative therapies has been refused by the patient. Other options for discharge include home with home health. Hospitalist has today approached the patient and family regarding end of life care in the home with hospice agency. It is recommended by the medical team that the patient have from the clock care at home as she is severely weak and protein calorie malnourished, and has a poor functional status, though PT notes do indicate that she was able to walk with standby assist with her walker yesterday for 150 ft. Physical therapy on hold today due to patient's profound pancytopenia. Oncology History: Oncology history, per Dr. Colvin's notes: She was treated with ABVD times 2 cycles and a follow-up PET scan showed Deauville 1. She went on to get 4 additional cycles of AVD and was subsequently watched off treatment. In February of 2018 she developed night sweats. A PET scan showed retroperitoneal, mediastinal and mesenteric lymphadenopathy with Deauville 5. Biopsy of a retroperitoneal lymph node in April 2018 showed classical Hodgkin's disease. Bone marrow was negative. She was seen in consultation at the [facility] by the transplant team. She also saw Dr. Ayad Haider at [facility] with the consensus that she would not undergo transplant but that immunotherapy could be considered were she to relapse in the future. She was treated with bendamustine and brentuximab vedotin x6 which he completed October 21, 2018. A PET scan in November 05, 2018 showed a stable focus of increased uptake in the right pelvis with no evidence of mass. She was seen for follow-up in August and had a CT scan done. At that time it showed a 3 mm lesion in the costophrenic angle posteriorly in the right lower lobe as well as a 1.3 cm lesion in the left lobe of the liver, possibly hemangioma. She was counseled about options and elected for 3 month follow-up scan. This was done in November and showed resolution of the lung and liver lesions and no evidence of disease progression. She was given a 3 month follow-up appointment. She subsequent developed multiple new skin lesions. Biopsy showed recurrent Hodgkin's lymphoma. She was seen in consultation by Dr. Ayad riggs at [facility] and started on Keytruda. She got her 1st dose on January 20. She states that she developed a fever up to 102? the evening of her treatment. She also had nausea and vomiting. She went to the emergency room and laboratory studies were unrevealing. She had a repeat episode the next day and was treated with Tylenol at home and this helped. Her nausea vomiting has been treated with Zofran and this has helped. She noted increase in the size and number of skin nodules. She has a spot that is a soft tissue density developing in the inner canthus of her left eye and medial lower lid. She had 2 episodes of SVT for which he went to the emergency room. She was treated with adenosine and diltia zem with return to sinus rhythm. She has a history of SVT and has seen Cardiology in the past. She is chronically on diltiazem. She has not had any other chest pain, shortness of breath. She notes double vision when she looks down has an ophthalmology appointment tomorrow. She has not had any numbness or tingling. She thinks that she has several small new skin lesions. Some of the older lesions have regressed. A lesion on her right cheek and the inner canthus of her left I have gotten a little bigger. She continues to have fevers up to 101 each day but no more night sweats. With her skin lesions appearing to enlarge she was seen by Dr. Haider in follow- up. He is going to be reviewing her pathology. 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 She was switched from Keytruda to a brentuximab vedotin and got her 1st dose of this 3 weeks ago. She felt good for several days afterwards but now has had return of her night sweats. Tylenol does help. Several skin lesions had been draining some purulent material she was treated with Keflex. These have gotten much better. She had an episode of vesicles on an erythematous base on her right anterior abdominal wall that she says is an area where she had shingles in the past. She is on Valtrex 3 times a day for a total of a week. This is not progressed into a dermatomal distribution. She continues to be bothered by fatigue, drenching night sweats, intermittent nausea and constipation. She has not noticed any new lesions. Many of her older lesions have gotten smaller. Her right facial swelling in mass is better. Her left eye findings are also better. However, she developed fever and severe weakness and fatigue. She was noted to be pancytopenic and was admitted. Patient is noted to be a FULL CODE as a part of her admission order set, though the medical team is in agreement that she would be unlikely to survive heroic measures with her underlying and widely proliferated metastatic, malignant lymphoma diagnosis. Additional PMH: SVT managed with diltiazem, pneumonia, squamous cell carcinoma of the face, port-a-cath placement and removal, surgery on finger, tonsillectomy. Social History: Patient and her son Darío reside here in [place]. Son Antonia and his partner Carlee live nearby, and Antonia is patient's DPAHC. Daughter Alda lives in [place]. Patient has an Advance Directive that indicates comfort is her goal of care, and her desire to avoid resuscitation should she be diagnosed with a terminal condition. 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 Patient has been unable to do many of her previously enjoyed hobbies for many years, due to her struggles with cancer and cancer tr eatments. Patient places a high priority on maintaining her independence, and states her desire to be at home when she dies. Because of the patient's profound general decline in clinical status over months, frailty evident by weakness, frequent falls, inability to provide of adequate self care, severe malnutrition (dramatic, unintentional weight loss, fatigue, lethargy) and given the possibility of an underlying, incurable medical illness, the medical team is of the belief that life expectancy is limited to days to weeks, and has requested clarification of this woman's specific medical goals. Attending physician has requested palliative medicine to assist in furthering conversation with patient and family regarding the complex and sensitive medical issues of the perceived benefits/burdens of continued life prolonging treatments, realistic prognosis, perspectives on and dying, priority in clinical care and burden of physical, emotional and spiritual symptoms for patient and family. I have reviewed the medical record, radiographs, diagnostics, interviewed the patient and her son Cesario, who also serves as the patient's DPOAHC. The following aspects are pertinent, current and remote medical history, social/emotional and family dynamics, current medications and effects, ROS, examination findings, prognosis, care planning, goal setting. Meds Home Medications and Allergies Home Medications Medication Instructions Recorded Confirmed Type diltiazem HCl 180 mg 180 mg PO QPM #90 cap 06/26/19 02/28/20 Rx capsule,extended release 24 hr diltiazem HCl 240 mg 240 mg PO DAILY 03/04/20 History capsule,extended release 24 hr Allergies Allergy/AdvReac Type Severity Reaction Status Date / Time NSAIDS (Non-Steroidal Allergy Intermediate HIVES Verified 02/28/20 10:27 Anti-Inflamma [NSAIDS (NON-STEROIDAL ANTI-INFLAMMA] amoxicillin [AMOXICILLIN] Allergy Mild rash Verified 02/28/20 10:27 aspirin Allergy Verified 02/28/20 10:27 Review of Systems Constitutional Constitutional: Reports as per HPI Exam Vital Signs (past 8 hours): - 03/04/20 07:50 03/04/20 08:00 03/04/20 08:44 Temperature 98.0 F 98 F 98.3 F Pulse Rate 90 91 H 89 Respiratory Rate 18 18 16 Blood Pressure 111/59 L 111/59 L 111/62 Pulse Oximetry 88 L 03/04/20 10:34 03/04/20 10:36 03/04/20 12:41 Temperature 98.4 F 98.3 F 97.7 F Pulse Rate 86 86 87 Respiratory Rate 16 16 14 Blood Pressure 109/61 109/61 111/58 L Pulse Oximetry 93 03/04/20 13:04 03/04/20 13:10 Temperature 97.6 F Pulse Rate 90 Respiratory Rate 16 Blood Pressure 122/59 L Pulse Oximetry 91 Oxygen Delivery Method Room Air Oxygen Flow Rate 0 Narrative Exam Narrative: Frail, chronically ill, pallid, cachectic appearing woman woman who is laying in bed, latest transfusion of packed red blood cells infusing. She is joined at bedside by her son, Cesario. Const General: cooperative, comfortable, well developed, frail appearing and ill appearing (chronically) Nutritional Appearance: cachectic, malnourished and thin Orientation: alert, awake and oriented x3 Other: Patient defers to son in answering most questions. Resp Effort & Inspection: normal respiratory effort and able to speak in complete sentences Objective Labs Result Diagrams: 03/04/20 05:10 03/04/20 05:10 Labs: Laboratory Results - last 24 hr 03/03/20 03/04/20 03/04/20 17:40 05:10 05:10 WBC 5.2 D 4.8 RBC 2.58 L 2.24 L Hgb 7.5 L 6.6 L* Hct 22.9 L 20.1 L* MCV 89.0 89.4 MCH 29.0 29.3 MCHC 32.6 32.8 RDW 17.8 H 18.4 H Plt Count 12 L* 15 L* Neut % (Auto) Not Reportable Lymph % (Auto) Not Reportable Gallia % (Auto) Not Reportable Eos % (Auto) Not Reportable Baso % (Auto) Not Reportable Lymph # (Auto) Not Reportable Gallia # (Auto) Not Reportable Baso # (Auto) Not Reportable Total Counted 100 100 Seg Neutrophils % 65.0 D 53.0 Band Neutrophils % 12.0 H 22.0 H Lymphocytes % (Manual) 13.0 L 13.0 L Atypical Lymphs % 2.0 H Monocytes % (Manual) 8.0 7.0 Basophils % (Manual) 3.0 H Metamyelocytes % 2.0 H Neutrophils # (Manual) 4004 3600 Nucleated RBCs 2 H RBC Morphology See below See below Polychromasia 1+ H Hypochromasia 1+ H Poikilocytosis 1+ H 2+ H Anisocytosis 1+ H 2+ H Tear Drop Cells 2+ H Sodium 138 Potassium 3.3 L Chloride 108 H Carbon Dioxide 32 BUN 18 H Creatinine 0.68 Estimated GFR > 60.0 BUN/Creatinine Ratio 26.5 H Glucose 88 Calcium 11.8 H Magnesium 2.1 Blood Type Antibody Screen Crossmatch 03/04/20 06:35 WBC RBC Hgb Hct MCV MCH MCHC RDW Plt Count Neut % (Auto) Lymph % (Auto) Gallia % (Auto) Eos % (Auto) Baso % (Auto) Lymph # (Auto) Gallia # (Auto) Baso # (Auto) Total Counted Seg Neutrophils % Band Neutrophils % Lymphocytes % (Manual) Atypical Lymphs % Monocytes % (Manual) Basophils % (Manual) Metamyelocytes % Neutrophils # (Manual) Nucleated RBCs RBC Morphology Polychromasia Hypochromasia Poikilocytosis Anisocytosis Tear Drop Cells Sodium Potassium Chloride Carbon Dioxide BUN Creatinine Estimated GFR BUN/Creatinine Ratio Glucose Calcium Magnesium Blood Type A Positive Antibody Screen Negative Crossmatch See Detail Assessment & Recommendations A & R narrative: Discussion: Met with the patient and her son Cesario at bedside. Both patient and son have good insight into her terminal diagnosis and son reports that he and his family are ready to bring their mother home in the care of a community based hospice agency. Patient has a DPAHC and Living Will, and Per reminds his mother of her wishes that they discussed when this document was signed, as pertaining to resuscitation. At this time, patient states when asked about her wishes regarding heroic measures at the end of life, Pull the plug. Clarified with patient that she wishes to avoid resuscitation. Offered opportunity to review the [facility] POLST and codify these desires, and these wishes are affirmed. Patient chooses DNAR, Comfort Measures Only. She defers to her son, the DPAHC, to sign this document. Son reports that he has already started the process of signing consents for support at home with a community based hospice agency. He and his partner Carlee are in the process of interviewing private duty caregivers to help he and his brother care for their mother's most personal needs. Carlee's father on hospice 5 years ago and they understand much of the hospice philosophy. He has questions about services provided by the hospice agency, brief overview of hospice is provided, including expert symptom management available by telephone 15/10. He is unsure as to timing of his mother's discharge, discussed potentially getting her home over the next 24-48 hours, with the hopes that hospice agency can arrange the official admission, and that the DME can be delivered prior to her arrival home. Updated the medical team regarding the outcome of this palliative medicine consultation. Recommendations: - Enter DNAR into the patient's EMR - Scan completed POLST into chart, maintain in EMR - Proof Machine Operator Supervisor: Contact [facility] to collaborate discharge Coding: - Hodgkins Lymphoma, Stage 4 - Pancytopenia - Neutropenic fevers - PSVT - Palliative medicine consultation To remain informed regarding current treatment opportunities, provider reviewed extensive additional documentation of multiple treatment providers/facilities which was utilized to update the management plan. Total time in review of additional medical information is 22 minutes, external to in person evaluation. Attempted to consult with oncologist about patient's prognosis, message left for Dr. Clements's nurse at 12pm 03/04/2020. Time in assessment and management of acute and chronic medical diagnoses, pertinent history to palliative medicine decision making, discussion and management of clinical findings enumerated above as well as fears regarding the transition to a more end of life plan and and dying is 32 minutes, more than half of which is necessary for education and counseling. Advanced Care Planning discussion time is 7 minutes. The patient currently has testamentary documents for estate planning, DPOAHC but lacks POLST and statement of wishes. Dialogue addresses patient preferences at the end/near end of life including resuscitation wishes (no CPR, DNAR). Additional care limits discussed above. Time Spent With Patient Time with patient: Greater than 35 minutes
--- NOTE | 2020-03-04 13:46 | CM.DPNOTE ---
Called [facility] and spoke to Viviana who said they are pretty full at this time, but clinically they could accept the patient. Erika from [facility] said they cannot accept the patient until Saturday. Julianne from [facility] said they cannot accept the patient today, and to call them on Saturday. Steff Lynch CM Asst.
--- NOTE | 2020-03-04 14:05 | CM.DPC ---
Addendum entered by Jackelyn Salgado LPN 03/04/20 16:13: Pt has now elected Hospice care. Mitali Velarde has completed the POLST form with pt and Per. DNAR and Comfort Care Interventions are elected. [facility] Lesly is updated. DME package has already been ordered and will be delivered sometime tomorrow. [facility] consents have been signed. Dr. Gresham is updated. Anticipates pt will d/c home tomorrow afternoon. This dcplanner will be here tomorrow at 1000 and follow up accordingly to complete the details of the d/c. Addendum entered by Jackelyn Salgado LPN 03/04/20 15:24: ARIELLE Velarde is now here meeting with pt and Per as planned. Spoke with her prior to the meeting to update her. Will look for her consult tomorrow. She plans to complete this later tonight. Will follow accordingly. Original Note: DCP: continued: case received, EMR reviewed. Discussed in team rounds and Dr. Gresham stated she was putting in palliative consult with TRAVELER CHANGERLexie Velarde. This is to be at 1500 today. Noted that 3 snf referrals had been faxed yesterday in case of need: ADRIAN Steff is following up to see if any beds are available. Pt has not agreed to this plan at this time. Met with pt's son Cesario Arredondo/DIONISIO, at bedside while pt was receiving blood transfusion. His cell: [phone]. Per says that he reached out to [facility] yesterday and that an info visit was planned for today if staff available. He stated he and his brother very much felt that his mother will be best at home and not in a snf. He said his partner Carlee is looking at caregiver agencies and that they wished to have some idea of when his mother will be ready for d/c. He says my intuition is that my mother is not recovering and that she would be best off at home with Hospice care. I just have not been told by the physicians that this would be best. Explained palliative consult at 1500 and Per will return to hospital at that time to be part of this. Mitali Velarde is updated via outlook email. Dr. Gresham has indicated today that d/c will be sometime this weekend. Encouraged Per to plan for this and asked if he and Carlee would be able to stay with pt until more caregiving is in place as is unclear how quickly this can be done and when [facility] will be able to see pt, if this is elected. Pt does not have much equipment at home and willl benefit from a hospital bed, bedside commode and wheelchair at very least. If [facility] does open pt to service these will be provided and Per is aware of this. P: is unfolding. Will await results of consult and follow accordingly. Have faxed referral information to [facility] and including the oncology progress note of 02/23.
--- NOTE | 2020-03-04 14:22 | PC.NURSE ---
0730- Patient is alert and oriented but weak. She is unable to hold on to her water when trying to drink, her arms give out easily. Her platelet count was 12 this am, platelets given through her iv to r.forearm. She tolerated this well, and all vss. Patient has used the bedpan x1. She also has orders for a potassium rider iv, and 2 units of PRBCs. Patients skin with lesions to her neck,face, and body. She states that they sometimes hurt. Area's are all scabbed, and sometimes do fall off. Explained the benefits of letting staff access her portacath, she did allow this RN to access. Good blood return, and flushing well. Patients potassium iv is infusing through her iv to l.fa and first unit of packed blood cells infusing through r.upper chest portacath. These were hung at 1255. Patient had platelets that were hung yesterday around 0930 and they were missed being completed, so this was done by this day shift RN. Patient has taken her tylenol twice this shift and used the bedpan 2 more times. She is lying on her l.side and napping. Patient is weak, she has not been out of bed today and has refused each meal. Offered replacement shakes but did not want this either. Son PARKER called earlier, and was asking options about his mother. We conversed about possible hospice and he does seem interested in this. Also explained to him about her code status, and he is looking into getting this changed. Patient has a palliative care meeting around 1500 and her son PARKER will be back at that time.
--- NOTE | 2020-03-04 14:23 | CM.DPNOTE ---
Faxed [facility] clinical[facility] to [facility]. Steff Lynch CM Asst.
[2020-03-04] MEDS: dilTIAZem CD 180 MG CAP PO (16:24)
[2020-03-04] MEDS: SODIUM CHLORIDE 0.9% FLUSH 10 ML IV ×2 (16:25→22:58)
--- NOTE | 2020-03-04 16:31 | PC.NURSE ---
Addendum entered by Monica Dhaliwal R.N. 03/05/20 00:07: Pt's son and daughter arrive with permission by administration for them to remain with pt. Addendum entered by Monica Dhaliwal R.N. 03/04/20 22:49: Pt awake and restless, eyes open, unable to verbalize. Incontinent of urine and brief changed. ARIELLE Clements in to see patient. Dr. Gresham has ordered comfort care orders and pt was given 2 mg iv morphine. PO tylenol changed to [place] scheduled as per ARIELLE Clements. Reinforced ARIELLE Clements will contact pt's son as per Dr. Gresham's directive. Addendum entered by Monica Dhaliwal R.N. 03/04/20 21:44: Pt lying flat in bed. 02 sats 88%. Pt occasionally with facial grimace, mouth movements. Unable to waken pt with voice or tactile stimuli. Asked pt to wake up for meds and pt's eyelids flutter, but does not awaken. Placed pt on 02 @ 2L per NC and sats increase to 90%. Noted pt's POLST which now defines pt as DNR/DNI. ARIELLE Clements was made aware. Immediate phone call from Dr. Gresham who asks this mortgage underwriter to check pt's abdomen. Pt's abdomen is distended. Pt is moving all extremities independently in bed, but still does not awake and respond to voice or tactile stimuli. Per Dr. Gresham, Dr. Gresham to notify ARIELLE Clements who will in turn notify pt's son of pt's change in condition. Pt's bed alarm in place as pt actively moving extremities in bed. Prefers legs drawn up to core. Sales Management Intern, Cat, made aware. Addendum entered by Monica Dhaliwal R.N. 03/04/20 19:29: Second and final unit of PRBC's completed by Gerald hay RN. Original Note: Pt lying on left side in bed drowsy, but rousable to voice. Appropriate mentation and conversation. Pt demonstrates generalized weakness, but is able to shift weight independently in bed. Pillow between legs as per request. Palliative nurse has finished consult with pt and pt's son, Per. Pt denies pain, denies nausea. Requests 1700 meds when given a choice. Meds whole in applesauce with safe swallow with head of bed elevated. Per son's request, pt's bed was turned to allow pt to see [place] from window. Requested pt's son alert staff when leaving bedside so pt's bed alarm can be activated for pt safety. Second and final unit of PRBC's infusing without difficulty to right chest portacath site. Site draws blood and flushes easily.
[2020-03-04] MEDS: SODIUM CHLORIDE 0.9% 250 ML 21 ML IV (21:06)
[2020-03-04] MEDS: MORPHINE 2 MG/ML INJ IV (22:57)
[2020-03-05] VITALS (15 sets, daily range): BP systolic 96–124; BP diastolic 61–71; PULSE 63–73; RESP 12–20; TEMP 36.4–36.8; O2SAT 92–98
[2020-03-05] MEDS: ACETAMINOPHEN 650 MG SUPP PR (00:12)
--- NOTE | 2020-03-05 01:25 | PM.EVENT ---
Event Note Date Patient Seen: 03/04/20 Time Patient Seen: 23:00 Event Note: Notified by her day provider she was likely having internal bleeding into her stomach. Her code status today was changed over to DNR comfort measures only. I made some adjustments to her comfort measures orders and contacted her son Kalee to let him know that she was not doing well and may not last through the night. Recommended that he make plans to see her in the next few hours. Discussed with nursing that the family might want to visit her and they will have to get special permission to allow family visitation for this patient. When I saw her she appeared to be very somnolent and comfortable.
[2020-03-05 05:56] LABS: Hemoglobin 8.8 g/dL (12.0-16.0); Mean Corpuscular HGB Conc 32.5 % (30-36); Mean Corpuscular Hemoglobin 29.2 PG (26-34); Red Blood Cell Count 3.01 X10^6/uL (4.0-5.2); Red Cell Distribution Width 16.7 % (11.6-14.8); White Blood Cell Count 5.6 X10^3/uL (4.5-11.0)
[2020-03-05 06:30] LABS: Add Manual Diff / Slide Review YES; Platelet Count 9 X10^3/uL (150-400)
[2020-03-05 06:43] LABS: Neutrophils Absolute Manual 3528 /uL (3000-5900); Reactive Lymphocytes 1+; Total Cells Counted 100; Toxic Vacuolation Present
[2020-03-05 06:44] LABS: Hypochromasia 1+; Platelet Estimate Decreased on smear; Poikilocytosis 1+; Toxic Granulation Present
[2020-03-05 06:45] LABS: Anisocytosis 1+
[2020-03-05 07:00] LABS: BUN Creatinine Ratio 28.8 (6-22); Blood Urea Nitrogen 21 mg/dL (7-17); Calcium 11.1 mg/dL (8.4-10.2); Carbon Dioxide 31 mmol/L (22-32); Chloride 111 mmol/L (98-107); Estimated Glomerular Filt Rate > 60.0 mL/min (>60); Glucose 104 mg/dL (80-110); HEMOLYSIS < 15 (0-50); Magnesium 2.1 mg/dL (1.6-2.3); Potassium 3.5 mmol/L (3.4-5.1); Sodium 143 mmol/L (137-145)
--- NOTE | 2020-03-05 07:01 | PC.NURSE ---
pt has critical platelets of 9, As per ARIELLE Valentine, disregard critical since pt is on comfort care and shouldnt have had labs drawn
[2020-03-05] MEDS: SODIUM CHLORIDE 0.9% FLUSH 10 ML IV (09:29)
[2020-03-05] MEDS: POTASSIUM CHLORIDE 20 MEQ TAB 40 MEQ PO (09:29)
--- NOTE | 2020-03-05 10:47 | CM.DPC ---
Addendum entered by Jackelyn Salgado LPN 03/05/20 13:57: Per has now confirmed that he and his mother both feel that the original plan presented to them by Dr. Gresham for a d/c tomorrow morning is best. By then the full family caregiving team will be in place, DME will have arrived and his mother is much more alert in the mornings. Family is rearranging the home to accommodate needed equipement. Dr. Gresham is updated and agrees this is best plan. P:home tomorrow morning: tentative time 1100. ambulance is elected by Cesario and encouraged by Dr. Gresham as pt's condition fluctuates, she is extremely weak and is essentially at this time bedbound. She will be taken from hospital bed to ambulance stretcher and then to hospital bed in the home. DAKSHA needs to go home with pt at d/c. Is in the Red Folder/chart. Addendum entered by Jackelyn Salgado LPN 03/05/20 11:27: Have spoken now with Per. He has heard from [facility]: DME will be delivered today between 1100 and 1330. He states that RENETTA Purcell and Dr Gresham both indicated that a Saturday morning d/c is probably best but he says if his mother very much wants to go late today he will try to make that work. He will call his mother now to discuss. Addendum entered by Jackelyn Salgado LPN 03/05/20 10:58: Have left a message for Cesario on his cell re need for further discussion. Have spoken with Angela/[facility] liaison. She confirms the DME should be delivered today.] Per has gone home to get this organized. At this time Angela says the earliest pt will be able to have a [facility] RN come to the home and fully open her to service will be . Dr. Gresham is updated. Original Note: DCP: continued: Spoke with Dr. Gresham just now and she has outlined POC for today. Pt is to receive another round of platelets and these are expected to be here by noon today. Dr. Gresham has spoken with Per and his sister Alda and wants pt to d/c only when family have care lined up for pt, the DME is in place and they are comfortable taking pt home. Expectation is for home either late this evening or tomorrow. Transport discussed. Will defer to Per, care team members and pt. Pt would like to go home ASAP. Lizama with many questions for Dr. Gresham and this d/c systems planner. Explained the Per would be called for further discussion and that he can update rest of family as this will help prevent any confusion. Dr. Gresham states she very much agrees with this plan.
--- NOTE | 2020-03-05 11:53 | PM.PN.1 ---
Subjective Subjective Date Patient Seen: 03/05/20 Interval history: Leigh Arredondo is a 74-year-old female with a past medical history significant for SVT, follicular lymphoma in 2009 in remission and recurrent Hodgkin's lymphoma stage IV 2017 who presented to the ED with progressive worsening weakness and fatigue over the past few months and neutropenic fever. The patient is resting in bed comfortably. Overnight, the patient had severe fatigue and was minimally responsive. There was concern that her decreased responsiveness may be due to spontaneous bleeding, however, her hemoglobin is 8.8 today after 2 units PRBC yesterday and the patient is lying in bed awake, alert and mentating relatively clearly. Her son and DORETHA Nassar and franchesca Lizama are at bedside. Palliative care consultation was pursued yesterday with the patient and her son and the patient made the decision to change code status to DNR/DNI and not pursue any further medical intervention and go home on hospice. The patient's family is currently arranging for caregiving at home and hospice is delivering medical equipment this afternoon. She remains afebrile. She denies headache, shortness of breath, chest pain, abdominal pain, nausea, vomiting, fever, chills, dysuria, diarrhea or constipation. She is voiding and eliminating without difficulty. She is up minimally due to severe weakness, fatigue and lethargy. Exam Vital Signs (past 8 hours): - 03/05/20 08:56 03/05/20 09:38 03/05/20 11:49 Temperature 97.7 F 97.9 F Pulse Rate 68 71 Respiratory Rate 14 14 Blood Pressure 124/70 96/61 Pulse Oximetry 97 98 Oxygen Delivery Method Nasal Cannula Oxygen Flow Rate 1 Narrative Exam Narrative: General: Eldelry cachectic, frail and emaciated appearing female in no acute distress, chronically ill, mildly withdrawn, severe fatigue and lethargy, mildly withdrawn otherwise appropriately interactive. HEENT: Normocephalic, atraumatic. External ears without defect. Pupils equal, round, and reactive to light. Anicteric sclerae, moist conjunctivae, and no lid lag. Oropharynx free of erythema and cobble stoning with moist mucosa. Neck: Supple with full range of motion. No jugular venous distension. No lymphadenopathy or thyromegaly. Cardiovascular: Regular rate and rhythm without murmurs, rubs, or gallops appreciated. Pulmonary: Clear to auscultation bilaterally without crackles, wheezes, or rhonchi. Normal respiratory effort with no use of accessory muscles. Abdomen: Soft, bowel tones present, nontender, nondistended. No hepatosplenomegaly or masses appreciated. No brusining of pelvis/hips, buttocks or abdomen. Extremities: No clubbing, cyanosis, or kimmie DNR/DNI a. Nurmerous skin lesions as below. Skin: Multiple scattered (on face and body) chronic malignant cutaneous lesions which are raised with black eschar now with minimal surrounding erythema and no drainage. Small subtle bruise on right knee possibly new and related to fall. Neurological: Cranial nerves grossly intact. Severe generalized weakness. Psychiatric: Withdrawn and depressed mood and affect. Alert, oriented and mentating relatively clearly. Probable mild cognitive impairment. Objective Labs Result Diagrams: 03/05/20 05:40 03/05/20 05:40 Labs: Laboratory Results - last 24 hr 03/04/20 03/05/20 03/05/20 06:35 05:40 05:40 WBC 5.6 RBC 3.01 L Hgb 8.8 L Hct 27.0 L MCV 90.0 MCH 29.2 MCHC 32.5 RDW 16.7 H Plt Count 9 L* Neut % (Auto) Not Reportable Lymph % (Auto) Not Reportable [place] % (Auto) Not Reportable Eos % (Auto) Not Reportable Baso % (Auto) Not Reportable Lymph # (Auto) Not Reportable [place] # (Auto) Not Reportable Baso # (Auto) Not Reportable Total Counted 100 Seg Neutrophils % 47.0 Band Neutrophils % 16.0 H Lymphocytes % (Manual) 24.0 L Atypical Lymphs % 7.0 H Monocytes % (Manual) 4.0 Metamyelocytes % 2.0 H Neutrophils # (Manual) 3528 Reactive Lymphocytes 1+ H Toxic Granulation Present H Toxic Vacuolation Present H Platelet Estimate Decreased on smear RBC Morphology See below Hypochromasia 1+ H Poikilocytosis 1+ H Anisocytosis 1+ H Sodium 143 Potassium 3.5 Chloride 111 H Carbon Dioxide 31 BUN 21 H Creatinine 0.73 Estimated GFR > 60.0 BUN/Creatinine Ratio 28.8 H Glucose 104 Calcium 11.1 H Magnesium 2.1 Blood Type A Positive Antibody Screen Negative Crossmatch See Detail [facility], [facility] Medical History Follicular non-Hodgkin's lymphoma SVT (supraventricular tachycardia) Surgical History History of removal of Port-a-Cath Social History household members: children Smoking Status: Former smoker alcohol intake: current substance use type: does not use Assessment & Plan Assessment & Plan narrative: Leigh Arredondo is a 74-year-old female with a past medical history significant for SVT, follicular lymphoma in 2009 in remission, and Hodgkin's lymphoma stage IV 2017 who presented to the ED with progressive worsening weakness and fatigue over the past few months and neutropenic fever. 1. Palliative care. -Consulted palliative Care, Mitali GUZMÁN, who established goals of care in which the patient decided not to pursue further medical intervention and go home with hospice. Her code status was updated and she is DNR/DNI. -Continue Palacio catheter for comfort. -Continue comfort eating. -Ordered comfort care medications including: Acetaminophen 650 mg PO/SC every 6 hours as needed for mild pain or fever, morphine 5 mg SL every 4 hours as needed for pain, lorazepam 0.5 mg SL every 4 hours as needed for anxiety or agitation, ondansetron 4 mg SL as needed for nausea, scopolamine patch or atropine gtt as needed for excessive secretions. 2. Acute neutropenic fever with pancytopenia, present on admission. Neutropenic fever resolved and pancytopenia active. -Unlikely infectious in nature as patient has been having fevers over the prior 2 years likely secondary to her Hodgkin's lymphoma. She does have a chronic cough but no overt infectious signs or symptoms. Chest x-ray did not demonstrate any acute cardiopulmonary process, urinalysis negative, Port-A-Cath in place without surrounding erythema or edema, and clinical exam unrevealing. Discontinued cefepime 2 g IV every 12 hours as there has been no infectious etiology identified. Neutropenia/pancytopenia is more likely a result of her brentuximab vedotin which she received first dose on 02/10/20. -Initial CBC demonstrated leukopenia with WBC 1.4 with an absolute neutrophil count of 1120, hemoglobin 8.5 and platelet count of 11. Blood counts continue to trend down despite multiple transfusions. Patient has received 2 units PRBC, 3 units platelets and Neupogen 300 mg daily. Plan to give additional 2 units of platelets today as platelets level is 9. Discussed case with on-call oncologist, Dr. Gongora, who recommended Neupogen if ANC < 1000 and transfuse PRBC if hemoglobin < 7.0 and and platelets if platelets < 10.0. -Continue to monitor CBC daily and more frequently if hemodynamically unstable. 3. Recurrent Hodgkin's lymphoma stage IV with pancytopenia and severe fatigue, chronic, present on admission. Active. -Patient currently being managed by oncology with Dr. Rose at [facility] and Dr. Haider at [facility]. -Patient was switched from Keytruda to Brentuximab vedotin last dose 02/10/20. Patient is not considered a bone marrow transplant candidate. -CT abdomen and pelvis with contrast demonstrated recurrence of lymphoma in liver, spleen and mesenteric adenopathy. -Patient has severe fatigue, progressive generalized weakness, severe protein calorie malnutrition with full body subcutaneous fat and muscle wasting. Consulted palliative care as above. 4. Generalized weakness with recurrent falls, present on admission. Active. 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 -CT abdomen pelvis did not demonstrate any pelvic or abdominal bleeding. There was a questionable splenic hypodensity which could represent splenic laceration and consulted general surgery, Dr. Woodson, who repeated CT abdomen and pelvis with contrast which demonstrated recurrence of lymphoma in liver, spleen and mesenteric adenopathy. Patient is not actively bleeding and no surgical intervention necessary. 5. Chronic severe protein calorie malnutrition, present on admission. Stable. -BMI 18.9. -Secondary to ongoing oncologic hypermetabolism and treatment side effects as evidence by patient has new taste changes and further reduced appetite secondary to Hodgkins lymphoma and associated treatment, -4.8% unintentional weight loss in 3 weeks (severe), BMI 18.9 (severe for age), nausea and constipation for >2mo, food recall meeting <75% EER for 2 months, NFPE showing global fat losses and moderate muscle losses in temples, clavicle, deltoid. -Consulted shipper/receiver and we appreciate her time and recommendations. Continue supplementation. 6. History of SVT, chronic, present on admission. Stable. -Patient has had recurrent SVT and has sought care in the emergency room multiple times which has been relieved with adenosine. -Continue home diltiazem 180 mg daily. -No events thus far and discontinued telemetry. Code status: DNR/DNI, her son Per is her DPOA and surrogate decision maker VTE prophylaxis: Chemical prophylaxis on hold given pancytopenia, SCDs Disposition: Patient will discharge home tomorrow with private caregiving and hospice to open on 03/08/2020. Medical equipment is being delivered this afternoon. Quality VTE Deep Vein Thrombosis/Pulmonary Embolism Present on Admission: No
[2020-03-05] MEDS: BISACODYL 10 MG SUPP PR (16:52)
[2020-03-05] MEDS: dilTIAZem CD 180 MG CAP PO (16:52)
--- NOTE | 2020-03-06 01:35 | PC.NURSE ---
Pt resting comfortably w/grandson at her bedside. States she has no c/o of pain except for a vague discomfort when she takes a deep breath. Mouth swabs at bedside, grandson is swabbing pt's mouth at her request. Pt states she is feeling very weak, but is able to change her position independently. Will continue to monitor.
[2020-03-06 07:34] VITALS: O2SAT 98
--- NOTE | 2020-03-06 08:57 | PM.DS.1 ---
History of Present Illness History of Present Illness Date Patient Seen: 02/28/20 Chief complaint: dehydration, needs fluids Narrative: Written by Dr. Alejandra: Leigh Arredondo is a 74-year-old female with a past medical history of SVT, multiple hematologic malignancies including follicular lymphoma in 2008, seemingly regressed but subsequently developed a Hodgkin lymphoma in 2017 which is stage IV who presented to the emergency room with worsening weakness and fatigue over the past few months. She has also been dealing with intermittent fever since her diagnosis in 2017, but these of seemingly been worse. High for her Hodgkin's disease she has recently trialed Keytruda but this was stopped with a change to brentuximab which she received on 02/09. There is seemingly some debate about her actual hematologic malignancy as some biopsies have shown consistency with a diffuse large B-cell lymphoma, and the patient was supposed to have follow-up this week with Dr. Haider at [facility] for a review of her final pathology and updated treatment plan. However, she presented to the emergency room with continued weakness and fevers. She has a chronic cough which is unchanged, and states that her fevers have really been coming on over the past 2 years, but may have been worsened recently. She endorsed an episode of nausea with her fever about a week ago but denies any abdominal pain, dysuria, urinary frequency, productive cough, headaches, neck pain, chest pain, shortness of breath. In the emergency room, patient has been febrile to 101, with borderline low blood pressures but remainder of her vital signs remain unremarkable. CBC showed pancytopenia with a WBC of 1.4, absolute neutrophil count 1120, hemoglobin of 8.5, and a platelet count of 11. Chemistries showed a mild hyponatremia with a sodium of 131, AST mildly elevated at 53, troponin was negative, procalcitonin was elevated at 32.64. Urinalysis was unremarkable. COVID-19 testing was negative. Chest x-ray shows a mild interstitial predominance. CT head was unremarkable. EKG shows normal sinus rhythm. Patient was admitted for neutropenic fever, given a dose of cefepime and vancomycin in the emergency room, as well as some IV fluids. Discharge Providers Provider Date of admission: 02/28/20 15:45 Discharge Date: 03/06/20 Primary care physician: Mingo Jones MD Consults: 02/28/20 16:16 Consult to Dietitian, Adult Routine Comment: Reason For Exam: weight loss on chemotherapy 02/28/20 18:01 Consult to Occupational Therapy Evaluate & Treat Comment: Physician Instructions: Evaluate and treat 02/28/20 18:46 Consult to Dietitian, Adult Routine Comment: Reason For Exam: chronic protein calorie malnutrition suspected 02/28/20 23:29 Consult to Respiratory Therapy Evaluate & Treat Comment: Wheezing Physician Instructions: Evaluate and treat 03/01/20 20:48 Consult to Pastoral Services Routine Comment: cancer pt.,Quaker, lacking spiritual community 03/03/20 10:37 Consult to General Surgery Routine Comment: Consulting Provider: Hunter Woodson Reason for consultation: Fall, spleen hypodensity r/o laceration Has provider been notified: Yes 03/04/20 11:55 Consult to Palliative Care Stat Comment: Goals of care and code status Consulting Provider: Mitali Velarde 03/04/20 16:44 Consult to Dietitian, Adult Routine Comment: Reason For Exam: malnourished 03/04/20 23:04 Consult to Discharge Planning Routine Comment: Consult to Hospice Referral Urgent Comment: Discharge provider: Elsie Gresham DO Summary Hospital Course Discharge Diagnosis: 1. Palliative care. 2. Acute neutropenic fever with pancytopenia, present on admission. Neutropenic fever resolved and pancytopenia active. 3. Recurrent Hodgkin's lymphoma stage IV with pancytopenia and severe fatigue, chronic, present on admission. Active. 4. Generalized weakness with recurrent falls, present on admission. Active. 5. Chronic severe protein calorie malnutrition, present on admission. Stable. 6. History of SVT, chronic, present on admission. Stable. Hospital Course: Leigh Arredondo is a 74-year-old female with a past medical history significant for SVT, follicular lymphoma in 2009 in remission, and Hodgkin's lymphoma stage IV 2017 who presented to the ED with progressive worsening weakness and fatigue over the past few months and neutropenic fever. 1. Palliative care. -Consulted palliative Care, Mitali GUZMÁN, who established goals of care in which the patient decided not to pursue further medical intervention and go home with hospice. Her code status was updated and she is DNR/DNI. -Continued Palacio catheter for comfort. -Continued comfort eating. -Continued comfort care medications including: Acetaminophen 650 mg PO/WV every 6 hours as needed for mild pain or fever, morphine 5 mg SL every 4 hours as needed for pain, lorazepam 0.5 mg SL every 4 hours as needed for anxiety or agitation, ondansetron 4 mg SL as needed for nausea, scopolamine patch or atropine gtt as needed for excessive secretions. -Patient was discharged home with hospice. 2. Acute neutropenic fever with pancytopenia, present on admission. Neutropenic fever resolved and pancytopenia active. -Unlikely infectious in nature as patient has been having fevers over the prior 2 years likely secondary to her Hodgkin's lymphoma. She does have a chronic cough but no overt infectious signs or symptoms. Chest x-ray did not demonstrate any acute cardiopulmonary process, urinalysis negative, Port-A-Cath in place without surrounding erythema or edema, and clinical exam unrevealing. Discontinued cefepime 2 g IV every 12 hours as there has been no infectious etiology identified. Neutropenia/pancytopenia is more likely a result of her brentuximab vedotin which she received first dose on 02/10/20. -Initial CBC demonstrated leukopenia with WBC 1.4 with an absolute neutrophil count of 1120, hemoglobin 8.5 and platelet count of 11. Blood counts continue to trend down despite multiple transfusions. Patient has received 2 units PRBC, 5 units platelets and Neupogen 300 mg daily. Discussed case with on-call oncologist, Dr. Gongora, who recommended Neupogen if ANC < 1000 and transfuse PRBC if hemoglobin < 7.0 and platelets < 10.0. -Continued to monitor CBC daily and more frequently if hemodynamically unstable. 3. Recurrent Hodgkin's lymphoma stage IV with pancytopenia and severe fatigue, chronic, present on admission. Active. -Patient currently being managed by oncology with Dr. Rose at [facility] and Dr. Haider at [facility]. -Patient was switched from Keytruda to Brentuximab vedotin last dose 02/10/20. Patient is not considered a bone marrow transplant candidate. -CT abdomen and pelvis with contrast demonstrated recurrence of lymphoma in liver, spleen and mesenteric adenopathy. -Patient has severe fatigue, progressive generalized weakness, severe protein calorie malnutrition with full body subcutaneous fat and muscle wasting. Consulted palliative care as above. 4. Generalized weakness with recurrent falls, present on admission. Active. -Patient had 2 controlled falls in room with FORESTRY HUNTER present and fell on buttocks/hip. -CT pelvis with contrast did not demonstrate any pelvic or abdominal bleeding. There was a questionable splenic hypodensity which could represent splenic laceration and consulted general surgery, Dr. Woodson, who repeated CT abdomen and pelvis with contrast which demonstrated recurrence of lymphoma in liver, spleen and mesenteric adenopathy. Patient is not actively bleeding and no surgical intervention necessary. 5. Chronic severe protein calorie malnutrition, present on admission. Stable. -BMI 18.9. -Secondary to ongoing oncologic hypermetabolism and treatment side effects as evidence by patient has new taste changes and further reduced appetite secondary to Hodgkins lymphoma and associated treatment, -4.8% unintentional weight loss in 3 weeks (severe), BMI 18.9 (severe for age), nausea and constipation for >2mo, food recall meeting <75% EER for 2 months, NFPE showing global fat losses and moderate muscle losses in temples, clavicle, deltoid. -Consulted rib trim separator and we appreciate her time and recommendations. Continued supplementation. 6. History of SVT, chronic, present on admission. Stable. -Patient has had recurrent SVT and has sought care in the emergency room multiple times which has been relieved with adenosine. -Continued home diltiazem 180 mg daily. -No events and discontinued telemetry. Exam Vital Signs (past 8 hours): - 03/06/20 07:34 Pulse Oximetry 98 Oxygen Delivery Method Nasal Cannula Oxygen Flow Rate 2 Narrative Exam Narrative: General: Eldelry cachectic, frail and emaciated appearing female in no acute distress, chronically ill, severe fatigue and lethargy, mildly withdrawn otherwise appropriately interactive. HEENT: Normocephalic, atraumatic. External ears without defect. Pupils equal, round, and reactive to light. Anicteric sclerae, moist conjunctivae, and no lid lag. Oropharynx free of erythema and cobble stoning with moist mucosa. Neck: Supple with full range of motion. No jugular venous distension. No lymphadenopathy or thyromegaly. Cardiovascular: Regular rate and rhythm without murmurs, rubs, or gallops appreciated. Pulmonary: Clear to auscultation bilaterally without crackles, wheezes, or rhonchi. Normal respiratory effort with no use of accessory muscles. Abdomen: Soft, bowel tones present, nontender, nondistended. No hepatosplenomegaly or masses appreciated. No bruising of pelvis/hips, buttocks or abdomen. Extremities: No clubbing, cyanosis, or edema. Numerous skin lesions as below. Skin: Multiple scattered (on face and body) chronic malignant cutaneous lesions which are raised with black eschar now with minimal surrounding erythema and no drainage. Small subtle bruise on right knee possibly new and related to fall. Neurological: Cranial nerves grossly intact. Severe generalized weakness. Psychiatric: Withdrawn and depressed mood and affect. Alert, oriented and mentating relatively clearly. Probable mild cognitive impairment. Objective Labs Result Diagrams: 03/05/20 05:40 03/05/20 05:40 Labs: Laboratory Results - last 24 hr 03/04/20 06:35 Blood Type A Positive Antibody Screen Negative Crossmatch See Detail [facility] Medical History Follicular non-Hodgkin's lymphoma SVT (supraventricular tachycardia) Surgical History History of removal of Port-a-Cath Social History household members: children Smoking Status: Former smoker alcohol intake: current substance use type: does not use Discharge Plan Discharge Plan Patient Disposition: Hospice - Home Provider Discharge Comment: You are being discharged home with hospice which will open on Saturday03/08/2020. You have been given multiple medications to treat any symptoms including fever, nausea, pain, shortness of breath, anxiety, agitation, or excessive secretions. Discharge orders & Medications Prescriptions: New scopolamine base [Transderm-Scop] 1 mg over 3 days Patch 3 Day 1 patch topical Q72H PRN (Reason: Secretions) Qty: 10 RF: 0 ondansetron 4 mg Tablet,Disintegrating 4 mg sublingual Q6HR PRN (Reason: Nausea) Qty: 10 RF: 0 morphine 20 mg/5 mL (4 mg/mL) solution 5 mg PO Q4H PRN (Reason: pain, discomfort, shortness of breath) Qty: 100 RF: 0 lorazepam 2 mg/mL concentrate 0.5 mg PO Q6H PRN (Reason: anxiety or agitation) Qty: 30 RF: 0 bisacodyl 10 mg Suppository 10 mg WV DAILY PRN (Reason: Constipation) Qty: 10 RF: 0 atropine 1 % Drops 2 drp sublingual Q2HR PRN (Reason: Secretions) Qty: 5 RF: 0 acetaminophen 325 mg Tablet 650 mg PO Q6HR PRN (Reason: Fever/Mild Pain (1-3)) Qty: 30 RF: 0 acetaminophen 650 mg Suppository 650 mg WV Q4HR PRN (Reason: Fever/Mild Pain (1-3)) Qty: 10 RF: 0 Continued diltiazem HCl [Cartia XT] 180 mg capsule,extended release 24hr 180 mg PO QPM Qty: 90 RF: 3 Discontinued diltiazem HCl 240 mg capsule,extended release 24hr 240 mg PO DAILY RF: 0 Follow up/Referrals: Mingo Jones MD [Primary Care Provider] - Diet/Activity/Treatments Diet: Regular Diet comment: May eat for comfort Activity: Bedrest Visit Report/Discharge Packet Instructions: End of Life Care, Coping With Pain Related to Cancer and Chemotherapy, DI for Nausea -- Adult, How to Care for Your Palacio Catheter -- Female, Ondansetron, Lorazepam, Morphine, How to Use Rectal Suppositories Discharge Data Primary Care Provider: Mingo Jones Quality VTE Deep Vein Thrombosis/Pulmonary Embolism Present on Admission: No
[2020-03-06] MEDS: SODIUM CHLORIDE 0.9% FLUSH 10 ML IV (09:31)
--- NOTE | 2020-03-06 10:13 | CM.DPC ---
Addendum entered by Brianne Valle R.N. 03/06/20 11:15: CM spoke with patient and explained that is medicaid doesn't cover the cost of BLS transport she may have a bill. patient stated understanding and wants to proceed With BLS transport. POLST form and BLS transport form placed with patients red folder to go with patient and updated patients Nurse about paperwork that needs to go with patient. Places a copy of the BLS form in green folder to be scanned into patients chart. Brianne Valle RN Original Note: DCP continued: EMR reivewed: Cm/Rn called [facility] to set up BLS transport home for patient. Patient cone picker time is noon. patients RN and hospitalist updated about D/C time. Cm will Faxed D/C summary when ready to [facility]. Brianne Valle RN
--- NOTE | 2020-03-06 10:58 | PC.NURSE ---
Day shift: Port-o-cath to be de-accessed prior to Pt going home today per Dr Gresham. Palacio to remain in place per Dr Gresham.
[2020-03-06 10:59] VITALS: O2SAT 97
[2020-03-06 11:31] VITALS: BP 119/75; PULSE 75; RESP 14; TEMP 37.1; O2SAT 98
--- NOTE | 2020-03-06 12:21 | PC.NURSE ---
Day shift: Pt left unit at approx 1220 w/ BLS. Going home w/ Hospice. Kalee instructed on paperwork and care for Pt when at home. scripts are at [facility] here in [place] and Kalee is aware of this. Pt has all personal belongings. RENETTA Soto removed the accessed port access. Pt has possession of her belongings that were in hospital safe.
--- NOTE | 2020-03-08 00:50 | PC.NURSE ---
Late Note: On 03/03/20 Pt reportedly fell twice in her room with OSVALDO Ashton standing by on this morning at approx. 0800. These falls were not witnessed by this nurse. OSVALDO Ashton reported to this nurse that the pt first fell onto her right hip after standing up from the toilet and attempting to step out of her brief without waiting for the aid to assist her. Pt was then reported to fall again as she stepped away from the aid on her way back to her bed. The PLASTIC MOLDING OPERATOR said the pt's legs gave out under her and she went down to the floor on both knees. The aid reported asking the pt to let her help her with ambulation and pt proceeded without her. Pt had been SBA without the need of FWW and able to conduct ADLs independently with supervision for her safety until to this morning when she became noticeably weaker. Pt was assessed by this nurse immediately after report of fall. Pt had full range of motion of all four extremities without pain. One new, dime sized bruise was found to pts medial left knee. Pt was A&Ox4 but noticeably upset with this new, unexpected weakness. Dr. Gresham was made aware and came to pts bedside for an assessment of her own. New orders placed for pelvic CT and transfusion of 1 unit plasma. Nurse Coordinator Heidi was made aware of the fall and post fall huddle conducted.
== END 2020-03-06 12:25 | disposition hospice, home (50) | DRG 808 ==
LOC: ED 14:52 → AC 15:46
PROVIDERS: Internal Medicine; Nurse Practitioner Family; Admitting Provider Internal Medicine; Emergency Provider Emergency Medicine; Family Provider Internal Medicine Hematology & Oncology; PCP Student in an Organized Health Care Education/Training Program; Referring Provider Emergency Medicine; Visit Provider Internal Medicine
DX: D70.1 Agranulocytosis secondary to cancer chemotherapy (principal); E43 Unspecified severe protein-calorie malnutrition; I47.1 Supraventricular tachycardia; Z68.1 Body mass index [BMI] 19.9 or less, adult; C81.93 Hodgkin lymphoma, unspecified, intra-abdominal lymph nodes; K92.2 Gastrointestinal hemorrhage, unspecified; C82.90 Follicular lymphoma, unspecified, unspecified site; D61.810 Antineoplastic chemotherapy induced pancytopenia; T45.1X5A Adverse effect of antineoplastic and immunosuppressive drugs, initial encounter; R16.1 Splenomegaly, not elsewhere classified; R50.81 Fever presenting with conditions classified elsewhere; R53.83 Other fatigue; R29.6 Repeated falls; Z87.891 Personal history of nicotine dependence; Z20.828 Contact with and (suspected) exposure to other viral communicable diseases; Z66 Do not resuscitate
CPT/HCPCS: 36415; 36430; 70450; 71045; 72193; 74177; 80048; 80053; 80076; 81001; 82550; 82607; 83605; 83690; 83735; 83880; 84145; 84443; 84484; 85007; 85025; 85610; 85730; 86850; 86900; 86901; 87040; 87635; 93005; 93306; 94760; 96361; 96365; 96367; 97162; 97164; 97165; 97530; 99232; 99284; 99497; P9016; J0692; J1642; J2270; J3480; P9035; Q5110; Q9967